=== PATIENT | female | born 1950 | race Caucasian/White ===

== ENCOUNTER 2022-10-15 14:33 | Emergency (ER) | payer MEDICARE, OTHER, SELFPAY ==
[2022-10-15 15:08] VITALS: BP 180/92; PULSE 85; RESP 18; TEMP 36.5; O2SAT 94; BMI 15.4
--- NOTE | 2022-10-15 16:09 | ED.EYEPROB ---
HPI - Eye Problem General Chief complaint: Eye Problems Stated complaint: Irritation/bleeding in right eye Time Seen by Provider: 10/15/22 16:04 History of Present Illness HPI Narrative: This 72-year-old female comes in with some redness in the inferior aspect of her right eye. She states that she feels normal. There was no trauma recently. She talked to her sister and then called the nurse line and was told to come in here for evaluation. She has no visual changes. She is not on any blood thinners. Related Data Home Medications Medication Instructions Recorded Confirmed carvedilol 3.125 mg tablet mg 10/15/22 lisinopril 20 mg tablet mg 10/15/22 lisinopril 20 tab 10/15/22 mg-hydrochlorothiazide 12.5 mg tablet rosuvastatin 20 mg tablet mg 10/15/22 vancomycin 125 mg capsule mg 10/15/22 Allergies Allergy/AdvReac Type Severity Reaction Status Date / Time acetaminophen [From Vicodin] Allergy Severe Hypertensio Verified 10/15/22 15:27 n gatifloxacin [From Tequin] Allergy Severe Anaphylaxis Verified 10/15/22 15:27 hydrocodone [From Vicodin] Allergy Severe Hypertensio Verified 10/15/22 15:27 n meperidine [From Demerol] Allergy Severe Anaphylaxis Verified 10/15/22 15:27 morphine Allergy Severe SOB Verified 10/15/22 15:27 Penicillins Allergy Severe Anaphylaxis Verified 10/15/22 15:27 ampicillin [From Unasyn] Allergy Unknown Nausea Verified 10/15/22 15:27 doxycycline Allergy Unknown other Verified 10/15/22 15:27 magnesium citrate Allergy Unknown Diarrhea Verified 10/15/22 15:27 metronidazole [From Flagyl] Allergy Unknown Flushing Verified 10/15/22 15:27 sulbactam [From Unasyn] Allergy Unknown Nausea Verified 10/15/22 15:27 sulfamethoxazole Allergy Unknown Nausea Verified 10/15/22 15:27 [From Sulfamethoxazole-Trimethoprim] trimethoprim Allergy Unknown Nausea Verified 10/15/22 15:27 [From Sulfamethoxazole-Trimethoprim] ceftin Allergy Severe Anaphylaxis Uncoded 10/15/22 15:27 iron sucrose Allergy Severe Anaphylaxis Uncoded 10/15/22 15:27 Review of Systems Status of ROS: Reports: 10 or more systems reviewed and unremarkable except as noted in History and below Narrative: Constitutional: No fevers, no weight gain or loss. Eyes: No discharge. No vision changes. Redness in the right eye as described above. HENT: No congestion, no sore throat, no ear pain. Cardiovascular: No chest pain, no palpitations. Respiratory: No shortness of breath, no wheezes, no cough. Gastrointestinal: No abdominal pain, no vomiting, no diarrhea. Genitourinary: No dysuria, no hematuria. Musculoskeletal: Normal range of motion. Skin: No rashes, no pruritis. Neurological: No dizziness, weakness, sensory change, speech change. Endo/Heme/Allergies: No bruising or bleeding. No polydipsia. Pysch: no suicidality, no anxiety, no insomnia. All other systems reviewed and are negative. Exam Narrative: Exam Narrative: Constitutional: Well-developed, well-nourished, no acute distress. HEENT: Normocephalic, atraumatic. The sclera of the inferior portion of the right eye has a subconjunctival hematoma. The iris is intact and funduscopic exam is normal. Neck: Normal range of motion. Nontender. Supple. Heart: Intact distal pulses. Lungs: No chest discomfort. No wheezes, rhonchi, or rales. Abdomen: Nontender. Back: Normal range of motion. Extremities: Normal range of motion. No injury. Skin: Intact. No rash. Warm. No erythema or pallor. Neurologic: No altered sensation. No weakness. Alert and oriented. Psychiatric: No suicidality. No anxiety or depression. No insomnia. Nursing notes and vitals signs are reviewed. Const: Vital Signs, click to edit/add: Vital Signs - 24 hr 10/15/22 15:08 Temperature 97.7 F Pulse Rate [Right Pulse Oximeter] 85 Respiratory Rate 18 Blood Pressure [Ri ght Upper Arm] 180/92 H Pulse Oximetry 94 Oxygen Delivery Me thod Room Air Course Vital Signs Vital signs: Initial Vital Signs Temperature 97.7 F 10/15/22 15:08 Temperature Source Temporal Artery Scan 10/15/22 15:08 Pulse Rate 85 10/15/22 15:08 Respiratory Rate 18 10/15/22 15:08 Blood Pressure 180/92 H 10/15/22 15:08 Blood Pressure Mean 121 10/15/22 15:08 Blood Pressure Position Sitting 10/15/22 15:08 Pulse Oximetry 94 01/02/23 15:08 Oxygen Delivery Method 10/15/22 15:08 Vital Signs Temperature 97.7 F 10/15/22 15:08 Pulse Rate 85 10/15/22 15:08 Respiratory Rate 18 10/15/22 15:08 Blood Pressure 180/92 H 10/15/22 15:08 Pulse Oximetry 94 10/15/22 15:08 Oxygen Delivery Method 10/15/22 15:08 Temperature 97.7 F 10/15/22 15:08 Pulse Rate 85 10/15/22 15:08 Respiratory Rate 18 10/15/22 15:08 Blood Pressure 180/92 H 10/15/22 15:08 Pulse Oximetry 94 10/15/22 15:08 Oxygen Delivery Method 10/15/22 15:08 MDM - Eye Problem MDM Narrative Medical decision making narrative: This patient comes in with a subconjunctival hematoma. She feels normal. She is not on any blood thinners. Reassurance is were given and the patient is okay to be discharged home to continue current plans. Discharge Plan Discharge Clinical Impression: Subconjunctival hematoma Patient Disposition: Home, Self-Care Condition: Stable Additional Instructions: Take [id number] medications as needed and indicated. Follow up with MD or return if worsening. Prescriptions: No Action lisinopril-hydrochlorothiazide 20-12.5 mg tablet Label Comments: TAKE ONE TABLET BY MOUTH EVERY MORNING lisinopril 20 mg tablet Label Comments: TAKE ONE TABLET BY MOUTH TWICE A DAY vancomycin 125 mg capsule Label Comments: TAKE ONE CAPSULE BY MOUTH EVERY DAY carvedilol 3.125 mg tablet Label Comments: TAKE ONE TABLET BY MOUTH TWICE A DAY WITH MEAL rosuvastatin 20 mg tablet Label Comments: TAKE ONE TABLET BY MOUTH EVERY EVENING WITH A MEAL Follow Up/Referrals: Pao Barnes PA-C [Primary Care Provider] - Stand Alone Forms: [email or web address] Info Instructions
--- NOTE | 2022-10-15 16:18 | ED.NURSE ---
Went to patient room to bring discharge instructions but patient had already left.
== END 2022-10-15 21:12 | disposition home or self-care (01) ==
LOC: ED 16:21
PROVIDERS: Emergency Provider Emergency Medicine Emergency Medical Services; PCP Physician Assistant Medical
DX: H11.31 Conjunctival hemorrhage, right eye (principal)
CPT/HCPCS: 99282; 99284

== ENCOUNTER 2023-04-29 07:19 | Emergency (ER) | payer MEDICARE, OTHER, SELFPAY ==
[2023-04-29] VITALS (11 sets, daily range): BP systolic 159–206; BP diastolic 92–104; PULSE 59–96; RESP 20; TEMP 36.1; O2SAT 88–96
--- NOTE | 2023-04-29 08:00 | ED.SOB ---
HPI - SOB/Dyspnea General Time Seen by Provider: 08:01 Date Seen: 04/29/23 Chief Complaint: Shortness of Breath/Dyspnea Stated Complaint: Shortness of breath, spitting up blood Time Seen by Provider: 04/29/23 07:59 Source: patient and RN notes reviewed Mode of arrival: ambulatory Limitations: no limitations History of Present Illness HPI Narrative: Patient is a 73-year-old female coming in with left-sided pleuritic chest symptoms and hemoptysis. Patient was diagnosed recently with non-small cell lung carcinoma. She states she has 2 lymph nodes on the left side where it is metastatic 2. About 2 weeks ago she had a bronchoscopy for biopsy and since than was having just small lula of blood in her productive cough. She saw the oncologist on Saturday. She through the weekend has had increasing hemoptysis where it is larger blood clots. She has burning pain in her left chest, feel short of breath. She could not lay on her left side last night, could not get comfortable due to the pain. She feels it is more than just the biopsy site. She called the emergency number for the oncologist in the oncologist she saw on Saturday was on-call, told her to come to the ER. They did discuss possibility of underlying pulmonary embolus. Her is concerned might be the biopsy site bleeding. Reviewed with them that these are all in the differential. 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 She is maintained on daily vancomycin which keeps this C difficile at [facility]. She has a history of a colostomy with a takedown 2 years ago. She also reports that she has 70% carotid artery stenosis on her right side, had seen her fitness floor attendant recently and they obviously are going to have her deal with her lung cancer 1st. She states she is on no blood thinners, stopped her aspirin. MD elicited complaint: shortness of breath, cough and pain with inspiration Related Data Home Medications Medication Instructions Recorded Confirmed carvedilol 3.125 mg tablet mg 10/15/22 lisinopril 20 mg tablet mg 10/15/22 lisinopril 20 tab 10/15/22 mg-hydrochlorothiazide 12.5 mg tablet rosuvastatin 20 mg tablet mg 10/15/22 vancomycin 125 mg capsule mg 10/15/22 Previous Rx's Medication Instructions Recorded azithromycin 250 mg tablet 250 mg PO DAILY 4 days #4 tabs 04/29/23 Allergies Allergy/AdvReac Type Severity Reaction Status Date / Time acetaminophen [From Vicodin] Allergy Severe Hypertensio Verified 10/15/22 15:27 n gatifloxacin [From Tequin] Allergy Severe Anaphylaxis Verified 10/15/22 15:27 hydrocodone [From Vicodin] Allergy Severe Hypertensio Verified 10/15/22 15:27 n meperidine [From Demerol] Allergy Severe Anaphylaxis Verified 10/15/22 15:27 morphine Allergy Severe SOB Verified 10/15/22 15:27 Penicillins Allergy Severe Anaphylaxis Verified 10/15/22 15:27 ampicillin [From Unasyn] Allergy Unknown Nausea Verified 10/15/22 15:27 doxycycline Allergy Unknown other Verified 10/15/22 15:27 magnesium citrate Allergy Unknown Diarrhea Verified 10/15/22 15:27 metronidazole [From Flagyl] Allergy Unknown Flushing Verified 10/15/22 15:27 sulbactam [From Unasyn] Allergy Unknown Nausea Verified 10/15/22 15:27 sulfamethoxazole Allergy Unknown Nausea Verified 10/15/22 15:27 [From Sulfamethoxazole-Trimethoprim] trimethoprim Allergy Unknown Nausea Verified 10/15/22 15:27 [From Sulfamethoxazole-Trimethoprim] ceftin Allergy Severe Anaphylaxis Uncoded 10/15/22 15:27 iron sucrose Allergy Severe Anaphylaxis Uncoded 10/15/22 15:27 Review of Systems Status of ROS: Reports: 6 or more systems reviewed and unremarkable except as noted in History and below [facility] Social History Smoking Status: Former smoker Do you use any of these nicotine containing products: None Second hand tobacco smoke exposure: Yes How often do you have a drink containing alcohol: 2-3 times a week How many standard drinks containing alcohol do you have on a typical day: 3 or 4 How often do you have six or more drinks on one occasion: Never AUDIT-C Alcohol total score: 4 Non-prescribed substance use: denies use service: No Exam Const: Vital Signs, click to edit/add: Vital Signs - 24 hr 04/29/23 07:23 04/29/23 09:01 04/29/23 09:02 Temperature 97.0 F L Pulse Rate 61 61 Pulse Rate [Left P ulse Oximeter] 96 Respiratory Rate 20 Blood Pressure 172/95 H Blood Pressure [Ri ght Upper Arm] 206/104 H Pulse Oximetry 95 96 96 Oxygen Delivery Me thod Room Air 04/29/23 09:03 04/29/23 09:45 04/29/23 10:00 Temperature Pulse Rate 61 61 60 Pulse Rate [Left P ulse Oximeter] Respiratory Rate Blood Pressure Blood Pressure [Ri ght Upper Arm] Pulse Oximetry 96 96 Oxygen Delivery Me thod 04/29/23 10:03 04/29/23 10:30 04/29/23 10:32 Temperature Pulse Rate 64 59 L 59 L Pulse Rate [Left P ulse Oximeter] Respiratory Rate Blood Pressure 187/92 H 159/93 H Blood Pressure [Ri ght Upper Arm] Pulse Oximetry 95 96 96 Oxygen Delivery Me thod Documenting provider has reviewed patient's vital signs: yes Common normals: no apparent distress, oriented x3, no limitations, healthy appearing, alert and well nourished General appearance: cooperative, comfortable, well kempt and well developed Other: Sitting up on the bed, very pleasant 73-year-old female able to talk in complete sentences come voice is normal. HENMT: Common normals: normocephalic, head/scalp atraumatic, hearing grossly normal bilaterally and external nose normal Head and scalp: normocephalic and atraumatic Face and sinus: normal facial exam Nose: external nose normal Eye: Common normals: PERRL, EOMs intact bilaterally, conjunctivae normal and no scleral icterus Conjunctiva: conjunctiva(e) normal Pupil: PERRL Neck & C-Spine: Common normals: full ROM, no lymphadenopathy, supple, no JVD and thyroid normal Thyroid: thyroid normal Lymph: Lymphatic: no lymphadenopathy noted Chest: Common normals: inspection of chest normal and palpation of chest normal Resp: Common normals: normal respiratory effort, no retractions, no use of accessory muscles and clear to auscultation bilaterally (Breath sounds are mildly distant bilaterally.) Effort & inspection: able to speak in complete sentences Auscultation: clear to auscultation bilaterally (Breath sounds are mildly distant bilaterally.) Cardio: Common normals: no JVD, regular rate, regular rhythm, S1 normal heart sound, S2 normal heart sound, no gallops, no clicks and no murmurs Rate: regular rate Rhythm: regular rhythm Heart sounds: S1 normal and S2 normal GI: Common normals: Normal to inspection, nondistended, normoactive bowel sounds present, soft to palpation, non-tender, no hepatosplenomegaly and no masses Palpation: soft and no hepatosplenomegaly Extremity: Common normals: no calf tenderness and no pedal edema (Absolutely no lower extremity edema.) Neuro: Common normals: oriented x3 Sensorium/orientation: alert Psych: Appearance: well kempt Course Course Hospital Course: Patient will have pulse oximetry for monitoring while here. Will obtain baseline EKG, proceed to chest CT PE protocol. Will have full complement of labs. She certainly is complaining of hemoptysis with recent biopsy in underlying lung cancer. This could be complication from the biopsy, complication from the cancer itself, rule out pulmonary embolus. Will get cardiac markers in case this is a pulmonary embolus to see if there is any level of string. Will also look at cardiac markers independently to ensure no ischemic disease. Patient currently is hemodynamically stable, actually blood pressure on arrival is elevated, will continue to watch and trend this well here. Reevaluation(s) Time of Reevaluation #1: 11:00 Reevaluation #1: Did review with patient recommendations for antibiotics to cover for pneumonia. She is adamant that she cannot take doxycycline as well as any fluoroquinolones or cephalosporin. She thinks she has taken azithromycin in the past. Have reviewed with her that that may be incomplete coverage for community-acquired pneumonia but at this juncture, really have nothing else to offer her orally. Did review antibiotic regimens with the oncologist. Our 1st choice would have been doxycycline but did discuss plan for Z-Bunny if patient could tolerate nothing else. Patient is adamant that she cannot take doxycycline. We did review that the Z-Bunny may increase her risk for C difficile. As far as pain, she cannot take narcotics. We do not want her on NSAIDs at this point. She is likely going to have to stick with Tylenol. Hopefully if there is a component of pneumonia this will be treated. If the hemoptysis continues or worsens, she will need a bronchoscopy likely and that is not something we can provide here. She does understand that. She would like to take her 1st dose of azithromycin here to make sure that she tolerates it. I have ordered 500 mg of this for her. Time of Reevaluation #2: 11:25 Consultations Consultation #1: Spoke with her own oncologist Dr. Cortez from [facility]. Reviewed the CT findings. Reviewed her allergy profile. I will talk to patient and see if she can at all tolerate doxycycline. If she can not, may have to go with azithromycin which she is potentially not adequate coverage. She is listing anaphylaxis from fluoroquinolones, penicillin class as well as a cephalosporin. Time: 11:07 Vital Signs Vital signs: Initial Vital Signs Temperature 97.0 F L 04/29/23 07:23 Temperature Source Temporal Artery Scan 04/29/23 07:23 Pulse Rate 96 04/29/23 07:23 Pulse Rhythm Regular 04/29/23 07:23 Respiratory Rate 20 04/29/23 07:23 Blood Pressure 206/104 H 04/29/23 07:23 Blood Pressure Mean 138 H 04/29/23 07:23 Blood Pressure Position Semi-Fowlers 04/29/23 07:23 Pulse Oximetry 95 04/29/23 07:23 Oxygen Delivery Method Room Air 04/29/23 07:23 Vital Signs Temperature 97.0 F L 04/29/23 07:23 Pulse Rate 96 04/29/23 07:23 Respiratory Rate 20 04/29/23 07:23 Blood Pressure 206/104 H 04/29/23 07:23 Pulse Oximetry 95 04/29/23 07:23 Oxygen Delivery Method Room Air 04/29/23 07:23 Temperature 97.0 F L 04/29/23 07:23 Pulse Rate 59 L 04/29/23 10:32 Respiratory Rate 20 04/29/23 07:23 Blood Pressure 159/93 H 04/29/23 10:32 Pulse Oximetry 96 04/29/23 10:32 Oxygen Delivery Method Room Air 04/29/23 07:23 MDM - SOB/Dyspnea Lab Data Attestation: I reviewed the patient's lab results. Labs: Lab Results 04/29/23 Range/Units 08:12 WBC 7.57 (4.50-11.00) K/uL RBC 5.13 (4.00-5.20) m/uL Hgb 15.3 (12.0-16.0) gm/dL Hct 47.5 (33.0-51.0) % MCV 93 (80-100) fL MCH 30 (26-34) pg MCHC 32 (32-36) gm/dL RDW Coeff of Álvaro 13.1 (11.5-15.5) % Plt Count 324 (140-440) K/uL Neut % (Auto) 69.7 (42.0-72.0) % Lymph % (Auto) 17.2 L (20-44) % [place] % (Auto) 10.8 (0.0-11.0) % Eos % (Auto) 1.5 (0.0-7.0) % Baso % (Auto) 0.7 (0.0-3.0) % Neut # (Auto) 5.28 (1.7-7.0) K/uL Lymph # (Auto) 1.30 (0.90-2.90) K/uL [place] # (Auto) 0.80 (0.00-0.90) K/UL Eos # (Auto) 0.11 (0.00-0.50) K/uL Baso # (Auto) 0.05 (0.00-0.30) K/uL Abs Immat Gran (auto) 0.01 (0.00-0.30) K/uL Imm/Tot Granulo (auto) 0.1 % INR 0.87 L (0.91-1.10) APTT 28 (23-33) Seconds D-Dimer Quant (PE/DVT) 0.47 (0.00-0.50) ug/ml Sodium 140 (135-149) mmol/L Potassium 3.5 L (3.6-5.1) mmol/L Chloride 103 (96-114) mmol/L Carbon Dioxide 28 (20-32) mmol/L BUN 10 (7-30) mg/dL Creatinine 0.7 (0.5-1.5) mg/dL Estimated GFR 91 ml/min Glucose 96 (60-115) mg/dL Lactate 2.2 H (0.5-1.9) mmol/L Calcium 9.3 (8.4-10.6) mg/dL Total Bilirubin 0.9 (0.1-1.5) mg/dL AST 43 H (12-35) U/L ALT 39 H (4-35) U/L Alkaline Phosphatase 59 (40-150) U/L Troponin I < 0.01 L (0.01-0.04) ng/mL NT-Pro-B Natriuret Pep 291 pg/mL Total Protein 7.6 (6.0-8.3) g/dL Albumin 4.7 (3.3-5.0) g/dL Imaging Data CT scan - chest: Attestation: I have reviewed the pertinent imaging results. Radiologist's impression: Patient: SHMUEL RIVERA Facility:?[facility] Patient ID:?[id number] Site Patient ID:?[id number]. Site :?[id number] Study:?CT Chest Angio 95CC ISOVUE 370-04/29/2023 9:48:49 AM Ordering Physician:?Rashad Sanchez Final Report: INDICATION: RECENT DIAGNOSIS OF LUNG CANCER, LUNG BX 2 WEEKS AGO AT [place]. HYMOPTYSIS, CP LEFT SIDE TECHNIQUE: CT chest PE was acquired with 95 cc Isovue 370 IV contrast. COMPARISON: CT chest April 12, 2023. FINDINGS: Heart and vasculature: Contrast opacification of the pulmonary arterial tree is adequate. No sign of pulmonary embolism. Heart size is normal. Thoracic aorta and pulmonary artery are normal in caliber. Lungs and pleural: Mild centrilobular emphysema and biapical scarring. Redemonstrated spiculated irregular mass within left lower lobe superior segment measuring 1.8 x 1.7 cm, similar to prior exam. However, there is interval development of adjacent and right basilar next consolidate ground-glass opacities. Bibasilar bronchial wall thickening and mucous plugging. Lymph nodes/mediastinum: No enlarged lymph nodes by size criteria. Chest wall: No masses. Upper abdomen: Postop changes of the GE junction. Cholecystectomy. Bones: Unremarkable for age. IMPRESSION: 1. Similar size of spiculated left upper lobe lesion with new surrounding consolidative and ground-glass opacities. Findings concerning for pneumonia and/or aspiration given bibasilar bronchial wall thickening and mucous plugging. Alternatively, this may represent perilesional hemorrhage given recent biopsy and reported hemoptysis. 2. No evidence of pulmonary embolus. Please note that all CT scans at this facility use dose modulation, iterative reconstruction, and/or weight-based dosing when appropriate to reduce radiation dose to as low as reasonably achievable. Dictated by Alber Castaneda MD @ 04/29/2023 10:43:41 AM (Electronic Signature) ECG Data Attestation: I personally reviewed and interpreted this ECG as follows: (Sinus rhythm, 61 beats per minute. Flipped T-waves without ST segment changes in V1, V2, 3 and AVF. Criteria for LVH by voltage minute. QT corrected 01/21/2018 milliseconds.) ECG interpretation date: 04/29/23 ECG interpretation time: 08:31 Prior ECG tracings: not available for review Discharge Plan Discharge Clinical Impression: Cough with hemoptysis, Non-small cell lung cancer, Ground glass opacity present on imaging of lung Patient Disposition: Home, Self-Care Condition: Stable Instructions: Coughing Up Blood (Hemoptysis) (ED), Community Acquired Pneumonia (ED) Additional Instructions: Need to follow-up with your oncologist as soon as you are able to to discuss further plans and management, especially if the hemoptysis continues. He may ultimately need to have a follow-up bronchoscopy, we do not have those services here. Tylenol baseline for pain. Remain off aspirin and NSAIDs at this time. Complete the Z-Bunny, next dose due tomorrow. If you have increasing difficulty breathing, worsening symptoms, increasing shortness of breath, increased hemoptysis, would recommend higher level of care such as a facility like [facility] where advanced services/specialty care is available. Activity Level: Activity as Tolerated Prescriptions: New azithromycin 250 mg tablet 250 mg PO DAILY 4 Days Qty: 4 0RF Rx Instructions: take one pill daily starting tomorrow 04/30/2023 No Action lisinopril-hydrochlorothiazide 20-12.5 mg tablet Patient Comments: TAKE ONE TABLET BY MOUTH EVERY MORNING lisinopril 20 mg tablet Patient Comments: TAKE ONE TABLET BY MOUTH TWICE A DAY vancomycin 125 mg capsule Patient Comments: TAKE ONE CAPSULE BY MOUTH EVERY DAY carvedilol 3.125 mg tablet Patient Comments: TAKE ONE TABLET BY MOUTH TWICE A DAY WITH MEAL rosuvastatin 20 mg tablet Patient Comments: TAKE ONE TABLET BY MOUTH EVERY EVENING WITH A MEAL Follow Up/Referrals: Pao Barnes PA-C [Primary Care Provider] - Stand Alone Forms: [employer] Info Instructions
--- NOTE | 2023-04-29 08:11 | CRLHL7_ITS ---
For Patients: As a result of the 21st Century Cures Act, medical imaging exams and procedure reports are released immediately into your electronic medical record. You may view this report before your referring provider. If you have questions, please contact your health care provider. INDICATION: RECENT DIAGNOSIS OF LUNG CANCER, LUNG BX 2 WEEKS AGO AT [place]. HYMOPTYSIS, CP LEFT SIDE TECHNIQUE: CT chest PE was acquired with 95 cc Isovue 370 IV contrast. COMPARISON: CT chest April 12, 2023. FINDINGS: Heart and vasculature: Contrast opacification of the pulmonary arterial tree is adequate. No sign of pulmonary embolism. Heart size is normal. Thoracic aorta and pulmonary artery are normal in caliber. Lungs and pleural: Mild centrilobular emphysema and biapical scarring. Redemonstrated spiculated irregular mass within left lower lobe superior segment measuring 1.8 x 1.7 cm, similar to prior exam. However, there is interval development of adjacent and right basilar next consolidate ground-glass opacities. Bibasilar bronchial wall thickening and mucous plugging. Lymph nodes/mediastinum: No enlarged lymph nodes by size criteria. Chest wall: No masses. Upper abdomen: Postop changes of the GE junction. Cholecystectomy. Bones: Unremarkable for age. IMPRESSION: 1. Similar size of spiculated left upper lobe lesion with new surrounding consolidative and ground-glass opacities. Findings concerning for pneumonia and/or aspiration given bibasilar bronchial wall thickening and mucous plugging. Alternatively, this may represent perilesional hemorrhage given recent biopsy and reported hemoptysis. 2. No evidence of pulmonary embolus. Please note that all CT scans at this facility use dose modulation, iterative reconstruction, and/or weight-based dosing when appropriate to reduce radiation dose to as low as reasonably achievable. Dictated by Alber Castaneda MD @ 04/29/2023 10:43:41 AM (Electronically Signed)
[2023-04-29 08:23] LABS: Basophils Absolute Auto 0.05 K/uL (0.00-0.30); Basophils Percent Auto 0.7 % (0.0-3.0); Eosinophils Absolute Auto 0.11 K/uL (0.00-0.50); Eosinophils Percent Auto 1.5 % (0.0-7.0); Hematocrit 47.5 % (33.0-51.0); Hemoglobin* 15.3 gm/dL (12.0-16.0); Immature Granulocytes Abs Auto 0.01 K/uL (0.00-0.30); Immature Granulocytes Pct Auto 0.1 %; Lactate* 2.2 mmol/L (0.5-1.9); Lymphocytes Percent Auto 17.2 % (20-44); Mean Corpuscular HGB Conc 32 gm/dL (32-36); Mean Corpuscular Hemoglobin 30 pg (26-34); Mean Corpuscular Volume 93 fL (80-100); Monocytes Percent Auto 10.8 % (0.0-11.0); Neutrophils Absolute Auto 5.28 K/uL (1.7-7.0); Neutrophils Percent Auto 69.7 % (42.0-72.0); Platelet Count* 324 K/uL (140-440); RDW Coefficient of Variation % 13.1 % (11.5-15.5); Red Blood Count 5.13 m/uL (4.00-5.20); White Blood Count* 7.57 K/uL (4.50-11.00)
[2023-04-29 08:29] LABS: Slide Review Reflex No
[2023-04-29 08:57] LABS: Albumin* 4.7 g/dL (3.3-5.0); Chloride* 103 mmol/L (96-114); Potassium* 3.5 mmol/L (3.6-5.1); Sodium* 140 mmol/L (135-149)
[2023-04-29 09:00] LABS: Alanine Aminotransferase* 39 U/L (4-35); Alkaline Phosphatase* 59 U/L (40-150); Aspartate Amino Transferase* 43 U/L (12-35); Bilirubin Total* 0.9 mg/dL (0.1-1.5); Blood Urea Nitrogen* 10 mg/dL (7-30); Carbon Dioxide* 28 mmol/L (20-32); Creatinine* 0.7 mg/dL (0.5-1.5); Estimated Glomerular Filt Rate 91 ml/min; Glucose* 96 mg/dL (60-115); Total Protein* 7.6 g/dL (6.0-8.3)
[2023-04-29 09:01] LABS: Calcium* 9.3 mg/dL (8.4-10.6)
[2023-04-29 09:05] LABS: INR 0.87 (0.91-1.10); Prothrombin Time 12.3 Seconds
[2023-04-29 09:06] LABS: Partial Thromboplastin Time* 28 Seconds (23-33)
[2023-04-29 09:08] LABS: D Dimer Quantitative* 0.47 ug/ml (0.00-0.50)
[2023-04-29 09:10] LABS: NT Pro B Type NatriureticPept* 291 pg/mL
[2023-04-29 09:12] LABS: Troponin I* < 0.01 ng/mL (0.01-0.04)
--- NOTE | 2023-04-29 09:28 | PC.NURSE ---
to radiology via wheelchair
[2023-04-29] MEDS: AZITHROMYCIN 250 MG TABLET 500 MG PO (11:58)
== END 2023-04-29 12:38 | disposition home or self-care (01) ==
PROVIDERS: Emergency Provider Family Medicine; PCP Physician Assistant Medical
DX: R04.2 Hemoptysis (principal); C34.90 Malignant neoplasm of unspecified part of unspecified bronchus or lung
CPT/HCPCS: 36415; 71260; 80053; 83605; 83880; 84484; 85025; 85379; 85610; 85730; 99284; 99285; A9270; Q9967

== ENCOUNTER 2023-06-23 20:36 | Inpatient (IN) | payer MEDICARE, OTHER, SELFPAY ==
[2023-06-23 21:04] VITALS: BP 91/62; PULSE 103; RESP 16; O2SAT 92; BMI 16.3
[2023-06-23 21:11] VITALS: TEMP 37.3
--- NOTE | 2023-06-23 21:26 | ED_ITS ---
HPI - Fever General Time Seen by Provider: 21:26 <Laura Solorzano MD - Last Filed: 06/25/23 23:11> Date Seen: 06/23/23 <Laura Solorzano MD - Last Filed: 06/25/23 23:11> Chief Complaint: Fever <Laura Solorzano MD - Last Filed: 06/25/23 23:11> Stated Complaint: Fever, thinks she has pneumonia <Laura Solorzano MD - Last Filed: 06/25/23 23:11> Time Seen by Provider: 06/23/23 21:16 <Laura Solorzano MD - Last Filed: 06/25/23 23:11> Source: patient, RN notes reviewed and old records reviewed <Laura Solorzano MD - Last Filed: 06/25/23 23:11> Mode of arrival: ambulatory <Laura Solorzano MD - Last Filed: 06/25/23 23:11> Limitations: no limitations <Laura Solorzano MD - Last Filed: 06/25/23 23:11> History of Present Illness HPI Narrative: This 73-year-old female with underlying lung cancer is coming in with a fever of 101.6 at home, is undergoing chemotherapy and radiation for this. She had treatment on Saturday, has continued to feel progressively worse. She does have a mild cough and some chest discomfort, it is reminiscent her symptoms when she had pneumonia before. She states her fairly did not want her to come in but when she talked to Oncology, they advised her to appropriately come in with a fever. She has had a little low back ache but no urinary symptoms, does wonder if it could be UTI. Reviewed with her that back a can be nonspecific, certainly can check urine. She is not noting any nasal congestion, no sore throat, no nausea vomiting or diarrhea. She notes she is dehydrated, has not been getting oral intake in, did not take any of her blood pressure medicines today in her systolic is 90. I did see her in April and this is when she was diagnosed with pneumonia, difficulty with antibiotic selection with her. She has non-small cell lung cancer. 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 She is maintained on daily vancomycin. She has had history of colostomy take down a few years ago. She has known right carotid stenosis 70% but her lung cancer was diagnosed in this has been put on hold. <Laura Solorzano MD - Last Filed: 06/25/23 23:11> MD elicited complaint: fever <Laura Solorzano MD - Last Filed: 06/25/23 23:11> Related Data Home Medications: Home Medications Medication Instructions Recorded Confirmed rosuvastatin 20 mg tablet 20 mg PO DAILY 10/15/22 06/24/23 vancomycin 125 mg capsule 125 mg PO DAILY 10/15/22 06/24/23 ANTACID/DIPHEN/LIDO (MAGIC 5 ml buccal Q6H PRN 06/24/23 06/24/23 MOUTHWASH) amlodipine 2.5 mg tablet 2.5 mg PO DAILY 06/24/23 06/24/23 lidocaine HCl 2 % mucosal solution PO 06/24/23 (Lidocaine Viscous) lorazepam 0.5 mg tablet 0.5 mg PO BID 06/24/23 06/24/23 metoprolol succinate 100 mg 100 mg PO DAILY 06/24/23 06/24/23 tablet,extended release 24 hr olanzapine 5 mg tablet 5 mg PO QPM 06/24/23 06/24/23 oxycodone 5 mg/5 mL oral solution 10 mg PO Q4-6H PRN pain 06/24/23 06/24/23 oxycodone-acetaminophen 5 mg-325 1 tab PO Q6H PRN 06/24/23 06/24/23 mg tablet prochlorperazine maleate 10 mg 10 mg PO Q6H PRN nausea 06/24/23 06/24/23 tablet sucralfate 100 mg/mL oral 10 ml PO QID 06/24/23 06/24/23 suspension <Laura Solorzano MD - Last Filed: 06/25/23 23:11> Allergies/Adverse Reactions: Allergies Allergy/AdvReac Type Severity Reaction Status Date / Time gatifloxacin [From Tequin] Allergy Severe Anaphylaxis Verified 06/23/23 23:58 hydrocodone [From Vicodin] Allergy Severe Hypertensio Verified 06/23/23 23:58 n meperidine [From Demerol] Allergy Severe Anaphylaxis Verified 06/23/23 23:58 morphine Allergy Severe SOB Verified 06/23/23 23:58 Penicillins Allergy Severe Anaphylaxis Verified 06/23/23 23:58 ampicillin [From Unasyn] Allergy Unknown Nausea Verified 06/23/23 23:58 doxycycline Allergy Unknown other Verified 06/23/23 23:58 magnesium citrate Allergy Unknown Diarrhea Verified 06/23/23 23:58 metronidazole [From Flagyl] Allergy Unknown Flushing Verified 06/23/23 23:58 sulbactam [From Unasyn] Allergy Unknown Nausea Verified 06/23/23 23:58 sulfamethoxazole Allergy Unknown Nausea Verified 06/23/23 23:58 [From Sulfamethoxazole-Trimethoprim] trimethoprim Allergy Unknown Nausea Verified 06/23/23 23:58 [From Sulfamethoxazole-Trimethoprim] ceftin Allergy Severe Anaphylaxis Uncoded 06/23/23 23:58 iron sucrose Allergy Severe Anaphylaxis Uncoded 06/23/23 23:58 <Laura Solorzano MD - Last Filed: 06/25/23 23:11> Review of Systems Status of ROS Reports: 6 or more systems reviewed and unremarkable except as noted in History and below <Laura Solorzano MD - Last Filed: 06/25/23 23:11> [facility] Medical History: Medical History (Updated 06/25/23 @ 12:27 by Ashley Huddleston PA-C) Cerebral aneurysm ?I67.1 - Cerebral aneurysm, nonruptured (ICD-10) PVD (peripheral vascular disease) ?I73.9 - Peripheral vascular disease, unspecified (ICD-10) COPD (chronic obstructive pulmonary disease) ?J44.9 - Chronic obstructive pulmonary disease, unspecified (ICD-10) C. difficile colitis ?A04.72 - Enterocolitis due to Clostridium difficile, not specified as recurrent (ICD-10) Intermittent atrial fibrillation ?I48.0 - Paroxysmal atrial fibrillation (ICD-10) Non-small cell carcinoma of left lung, stage 3 ?C34.92 - Malignant neoplasm of unspecified part of left bronchus or lung (ICD-10) <Laura Solorzano MD - Last Filed: 06/25/23 23:11> Surgical History: Surgical History S/P colectomy ?Z90.49 - Acquired absence of other specified parts of digestive tract (ICD- 10) <Laura Solorzano MD - Last Filed: 06/25/23 23:11> Social History: Social History What is your current living situation?: I presently have a place to live Problems where you live: no known problems Problems where you live details: na In the past 12 months, utilities in danger of being shut off: no In the past 12 mos, have been you worried that your food would run out before you had money to buy more?: never true In the past 12 mos, the food you bought just didn't last and you didn't have money to buy more?: never true Smoking Status: Former smoker Do you use any of these nicotine containing products: None Second hand tobacco smoke exposure: Yes How often do you have a drink containing alcohol: never How many standard drinks containing alcohol do you have on a typical day: 3 or 4 How often do you have six or more drinks on one occasion: Never AUDIT-C Alcohol total score: 1 Non-prescribed substance use: denies use How often does anyone, including family, friends and others, physically hurt you : never How often does anyone, including family, friends and others, insult or talk down to you: fairly often How often does anyone, including family, friends and others, threaten you with harm: never How often does anyone, including family, friends and others, scream or curse at you: sometimes service: No <Laura Solorzano MD - Last Filed: 06/25/23 23:11> Exam Const Vital Signs, click to edit/add: Vital Signs - 24 hr 06/23/23 21:04 06/23/23 21:11 06/23/23 21:32 Temperature 99.1 F Pulse Rate [Left Pulse Oximeter] 103 H Respiratory Rate 16 Blood Pressure [Right Upper Arm] 91/62 Pulse Oximetry 92 91 Oxygen Delivery Method Room Air 06/23/23 22:18 Temperature Pulse Rate [Left Pulse Oximeter] Respiratory Rate Blood Pressure [Right Upper Arm] Pulse Oximetry 91 Oxygen Delivery Method Room Air Shmuel is a very pleasant 73-year-old female bundled up in blankets, has them over her head. She is still very pleasant and conversive, speech is normal, able speak in complete sentences. She is of slender frame, appears frail. Sclera clear, conjugate gaze. Symmetrical facial function. Neck is supple, no palpable masses. Is able to sit up, lungs are clear, hear no wheezing or crackles. CV sounds regular, possibly slightly fast, no murmur noted, no ectopy. Abdomen is soft, no rebound or guarding, no organomegaly. She has no lower extremity edema, no focal motor or sensory issues of extremities. <Laura Solorzano MD - Last Filed: 06/25/23 23:11> Vital Signs - 24 hr 06/23/23 21:04 06/23/23 21:11 06/23/23 21:32 Temperature 99.1 F Pulse Rate [Left Pulse Oximeter] 103 H Respiratory Rate 16 Blood Pressure [Right Upper Arm] 91/62 Pulse Oximetry 92 91 Oxygen Delivery Method Room Air 06/23/23 22:18 Temperature Pulse Rate [Left Pulse Oximeter] Respiratory Rate Blood Pressure [Right Upper Arm] Pulse Oximetry 91 Oxygen Delivery Method Room Air <Guillaume Ortega MD - Last Filed: 06/24/23 01:31> Documenting provider has reviewed patient's vital signs: yes <Laura Solorzano MD - Last Filed: 06/25/23 23:11> Course Course ED Course: This is a 73-year-old female that has relative hypotension, do agree that this certainly could be a component of dehydration but with fever, do need to worry about sepsis. She would like us to use her port but wants EMLA cream. Have discussed the delay in cares with this but this is how she would like to proceed in does seem to be quite lucid and does not appear toxic at all. I will order a L of IV fluids and watch her closely, she will be on cardiac monitoring and pulse oximetry. We will get urinalysis, blood cultures, chest x-ray in full complement of labs. May need to proceed with chest imaging if we need more definitive testing to find the answer for her fever. She understands we will be doing the triple viral swab in does agree to this testing. <Laura Mensah MD - Last Filed: 06/25/23 23:11> Reevaluation(s) Time of Reevaluation #1: 22:55 <Laura Solorzano MD - Last Filed: 06/25/23 23:11> Reevaluation #1: Patient is having chest discomfort with her radiation, sounds as if she has been using percocet at home but it upsets her stomach; they had provided liquid but hasn't tried that yet. We are going to give her a dose of IV fentanyl. She is still tachycardia with afib w/ rvr but has only received the first half of 1L, will be ordering more fluids. Do wonder about radiation pneumonitis after talking further with them. She did get both chemo and radiation treatment on Saturday. Has been getting these radiation treatments 3x/week. Will proceed with chest imaging. Blood pressure is in the systolic 130s with just this small amount of fluids, pulse is still AFib with RVR, anywhere from 120 to 140s. Will initiate small dose of IV metoprolol and an oral dose of metoprolol. Hopefully with fluids she will improve. Reviewed that she is in atrial fibrillation, she states she has been in this before, think she has probably been in it all weekend. Reviewed with her that I do not feel it is safe for cardioversion. Patient's potassium has come back low at 3.1, have ordered 2 IV 10 mEq bags for replacement. Will do a lab add on for magnesium level. <Laura Solorzano MD - Last Filed: 06/25/23 23:11> Reevaluation #2: Addendum, Dr. Guillaume Ortega, 01:31 06/24/2023: I assumed care of this patient when Dr. Torrez left the ER at around midnight. I recheck the patient from about 12 30 until 1:00 a.m. at her bedside with her family. 73-year-old female who has lung cancer. She recently completed a course of chemo (last dose 3 days ago on Saturday) and is still has ongoing radiation therapy to her lungs. She also has a history of asthma/COPD with wheezing. She needs to use bronchodilators at least 3 times, sometimes more often, every day at home. She was requesting another nebulizer at around 12:15 p.m.-12 30 because this was her normally time to get 1 at home. She has been ill above her chronic illness for the past week or 2 with cough, shortness of breath. Cough has been rattling and productive. Concern is for possible pneumonia. She also has a history of what sounds like paroxysmal AFib. She has been having episodes of it off and on for months. She says she has seen a graduate advisor for it but was not having AFib so is not currently on any meds for stroke prophylaxis, rate control, or rhythm control. She has felt episodes of irregular heartbeat off and on every day for the past couple of weeks. In particular she has felt her hurting pretty rapid irregular over the weekend, for the past few days. Constitutional: Appears well-developed and well-nourished. Alert. Conversant. Frequent wet sounding cough. Non toxic. HENT: Head: Atraumatic. Nose: Nose normal. Mouth/Throat: Oral mucosa is clear and moist. no trismus. Pharynx normal. Tonsils symmetric. No tonsillar enlargement, erythema, or exudate. Eyes: Conjunctivae normal. EOM normal. Pupils equal, round, and reactive to light. No scleral icterus. Neck: Normal range of motion. Neck supple. No tracheal deviation present. No JVD Cardiovascular: Tachycardic, irregularly irregular rhythm. No gallop. No friction rub. No murmur heard. Symmetric radial artery pulses Pulmonary/Chest: Effort normal. No stridor. No respiratory distress. Scarce bilateral wheezes. Right basilar rales and rhonchi. Musculoskeletal: RUE: Normal range of motion. No tenderness. No deformity LUE: Normal range of motion. No tenderness. No deformity RLE: Normal range of motion. No edema. No tenderness. No deformity LLE: Normal range of motion. No edema. No tenderness. No deformity Neurological: Alert and oriented to person, place, and time. Normal strength. CN II-VII intact. No sensory deficit. GCS eye subscore is 4. GCS verbal subscore is 5. GCS motor subscore is 6. Normal coordination Skin: Skin is warm and dry. No rash noted. No pallor. Normal capillary refill. Psychiatric: Normal mood. Normal affect. Medical decision making 1. Atrial fibrillation: Patient does have atrial fibrillation with RVR. This is been ongoing for several days and it sounds like she has been having intermittent AFib for the past few weeks. She is not within a safe 48 hour window for cardioversion here in the ER. She has not been on any stroke proph ylaxis. Chads Vasc score is 4. She is concerned about potential bleeding complications from blood thinners. Therefore will start her on heparin drip for stroke prophylaxis here in the ER. This would allow is to DC the drip if she did encounter any bleeding complications. We opted for rate control since cardioversion was not safe. Blood pressure was soft (patient has normal blood pressure is roughly 140/90. Yesterday at home was 88/38. Today it was about 100/50). She received a small IV and a small oral dose of metoprolol before I took over. With these medications heart rate did temporarily come down ranging about 100-115. While I was re-evaluating her she was having fairly consistent heart rates in the 1 teens with occasional episodes into the 120s near 130. Blood pressure remained stable at about 100/53. Mental status was normal. She was not having any ischemic sounding chest pain or other evidence that this was a ?unstable? tachy arrhythmia. I ordered additional IV metoprolol 2.5 mg IV. She will require admission for cardiac monitoring and careful observation in the hospital for ongoing rate control. 2. Pneumonia. Chest x-ray does show right middle lobe and right lower lobe infiltrates which appear to be new, probably new pneumonia. She does have a productive wet sound and cough. Fortunately she is not hypoxic. Blood pressure has been in the low normal range here in the ER and was reported to be low yesterday at home. However she is not hypotensive. She received a 1.5 L crystalloid bolus prior to me assuming care. Lactic acid is normal at 1.1. At this point no evidence for septic shock or severe sepsis. White blood cell count is normal but CRP is elevated at 17. Procalcitonin is 0.15 She has multiple antibiotic allergies, as well as a history of C diff on chronic vancomycin prophylaxis. This creates difficulty in choosing appropriate antibiotic therapy for pneumonia. Will try her on a carbapenem and Zithromax. Blood cultures obtained prior to antibiotic therapy. Chest CT was obtained to rule out alternative explanations for shortness of breath such as PE, radiation pneumonitis, pneumothorax, lung abscess, empyema. It does confirm multifocal pneumonia, read demonstrates her previously known lung cancer, but does not show other concerning abnormality such as PE. CT chest PE protocol IMPRESSION: No pulmonary embolism. Interval development of right greater than left basilar consolidations and right middle lobe consolidation suggestive of multifocal pneumonia, possibly related to aspiration given distribution. Pulmonary emphysema. Re-demonstration of 1.9 centimeter left lower lobe nodule with interval development of cavitation, but overall relatively unchanged in size. Recommend continued oncological surveillance as clinically indicated. 3. Bronchospasm: She has a history of wheezing and bronchospasm. She was complaining wheeziness here in the ER. She received DuoNeb with improvement in her wheezing. Fortunately the beta agonist did not contribute to any significant worsening of her tachycardia/AFib with RVR. Will also add steroids for bronchospasm. Discussed with hospitalist, who will admit. <Guillaume Ortega MD - Last Filed: 06/24/23 01:31> Vital Signs Vital signs: Initial Vital Signs Temperature Source Temporal Artery Scan 06/23/23 21:04 Pulse Rate 103 H 06/23/23 21:04 Pulse Rhythm Regular 06/23/23 21:04 Respiratory Rate 16 06/23/23 21:04 Blood Pressure 91/62 06/23/23 21:04 Blood Pressure Mean 71 06/23/23 21:04 Blood Pressure Position Sitting 06/23/23 21:04 Pulse Oximetry 92 06/23/23 21:04 Oxygen Delivery Method Room Air 06/23/23 21:04 Vital Signs Pulse Rate 103 H 06/23/23 21:04 Respiratory Rate 16 06/23/23 21:04 Blood Pressure 91/62 06/23/23 21:04 Pulse Oximetry 92 06/23/23 21:04 Oxygen Delivery Method Room Air 06/23/23 21:04 Temperature 98.2 F 06/25/23 22:44 Pulse Rate 116 H 06/25/23 22:44 Respiratory Rate 20 06/25/23 22:44 Blood Pressure 100/71 06/25/23 22:44 Pulse Oximetry 90 06/25/23 22:44 Oxygen Delivery Method Room Air 06/25/23 22:44 <Laura Solorzano MD - Last Filed: 06/25/23 23:11> Initial Vital Signs Temperature Source Temporal Artery Scan 06/23/23 21:04 Pulse Rate 103 H 06/23/23 21:04 Pulse Rhythm Regular 06/23/23 21:04 Respiratory Rate 16 06/23/23 21:04 Blood Pressure 91/62 06/23/23 21:04 Blood Pressure Mean 71 06/23/23 21:04 Blood Pressure Position Sitting 06/23/23 21:04 Pulse Oximetry 92 06/23/23 21:04 Oxygen Delivery Method Room Air 06/23/23 21:04 Vital Signs Pulse Rate 103 H 06/23/23 21:04 Respiratory Rate 16 06/23/23 21:04 Blood Pressure 91/62 06/23/23 21:04 Pulse Oximetry 92 06/23/23 21:04 Oxygen Delivery Method Room Air 06/23/23 21:04 Temperature 98.2 F 06/25/23 22:44 Pulse Rate 116 H 06/25/23 22:44 Respiratory Rate 20 06/25/23 22:44 Blood Pressure 100/71 06/25/23 22:44 Pulse Oximetry 90 06/25/23 22:44 Oxygen Delivery Method Room Air 06/25/23 22:44 <Guillaume Ortega MD - Last Filed: 06/24/23 01:31> MDM - Fever Lab Data Attestation: I reviewed the patient's lab results. <Laura Solorzano MD - Last Filed: 06/25/23 23:11> Labs: Lab Results 06/23/23 06/23/23 06/23/23 Range/Units 21:33 21:40 21:58 WBC 4.05 L (4.50-11.00) K/uL RBC 3.21 L (4.00-5.20) m/uL Hgb 9.9 L (12.0-16.0) gm/dL Hct 29.3 L (33.0-51.0) % MCV 91 (80-100) fL MCH 31 (26-34) pg MCHC 34 (32-36) gm/dL RDW Coeff of Álvaro 14.4 (11.5-15.5) % Plt Count 183 (140-440) K/uL Neut % (Auto) 94.3 H (42.0-72.0) % Lymph % (Auto) 1.5 L (20-44) % [place] % (Auto) 3.7 (0.0-11.0) % Eos % (Auto) 0.0 (0.0-7.0) % Baso % (Auto) 0.0 (0.0-3.0) % Neut # (Auto) 3.80 (1.7-7.0) K/uL Lymph # (Auto) 0.10 L (0.90-2.90) K/uL [place] # (Auto) 0.10 (0.00-0.90) K/UL Eos # (Auto) 0.00 (0.00-0.50) K/uL Baso # (Auto) 0.00 (0.00-0.30) K/uL Abs Immat Gran (auto) 0.00 (0.00-0.30) K/uL Imm/Tot Granulo (auto) 0.5 % VBG pH 7.503 H (7.32-7.43) VBG pCO2 33 L (40-50) mmHG VBG pO2 56.4 H (25-47) mmHG VBG HCO3 26 (21-28) mmol/L Sodium 133 L (135-149) mmol/L Potassium 3.1 L (3.6-5.1) mmol/L Chloride 100 (96-114) mmol/L Carbon Dioxide 27 (20-32) mmol/L Anion Gap 6 L (7-15) mEq/L BUN 9 (7-30) mg/dL Creatinine 0.6 (0.5-1.5) mg/dL Estimated Creat Clear 34.08 Estimated GFR 95 ml/min Glucose 111 (60-115) mg/dL Lactate 1.1 (0.5-1.9) mmol/L Calcium 8.6 (8.4-10.6) mg/dL Magnesium 1.6 (1.5-2.6) mg/dL Total Bilirubin 0.9 (0.1-1.5) mg/dL AST 24 (12-35) U/L ALT 19 (4-35) U/L Alkaline Phosphatase 50 (40-150) U/L C-Reactive Protein 17.4 H (0.5-1.0) mg/dL NT-Pro-B Natriuret Pep 2450 pg/mL Total Protein 5.7 L (6.0-8.3) g/dL Albumin 3.0 L (3.3-5.0) g/dL Procalcitonin 0.15 (<0.50) ng/mL Urine Color (Yellow) Urine Appearance (Clear) Urine pH (5.0-8.5) Ur Specific [place] (1.000-1.030) Urine Protein (Negative) Urine Glucose (UA) (Negative) Urine Ketones (Negative) Urine Blood (Negative) Urine Nitrite (Negative) Urine Bilirubin (Negative) Urine Urobilinogen (0.2-1.0) Ur Leukocyte Esterase (Negative) Urine RBC (0-2) Urine WBC (0-5) Ur Squamous Epith Cells (None-Few) Urine Bacteria (None) SARS-CoV-2 (PCR) Negative SARS-CoV-2 (Negative) Influenza Type A (PCR) Negative PCR FLU A (Negative) Influenza Type B (PCR) Negative PCR FLU B (Negative) RSV (PCR) Negative PCR RSV (Negative) Lab Acknowledgement POC Troponin I 0.02 (0.01-0.04) ng/ml 06/23/23 06/23/23 06/24/23 Range/Units 22:18 23:13 01:11 WBC (4.50-11.00) K/uL RBC (4.00-5.20) m/uL Hgb (12.0-16.0) gm/dL Hct (33.0-51.0) % MCV (80-100) fL MCH (26-34) pg MCHC (32-36) gm/dL RDW Coeff of Álvaro (11.5-15.5) % Plt Count (140-440) K/uL Neut % (Auto) (42.0-72.0) % Lymph % (Auto) (20-44) % [place] % (Auto) (0.0-11.0) % Eos % (Auto) (0.0-7.0) % Baso % (Auto) (0.0-3.0) % Neut # (Auto) (1.7-7.0) K/uL Lymph # (Auto) (0.90-2.90) K/uL [place] # (Auto) (0.00-0.90) K/UL Eos # (Auto) (0.00-0.50) K/uL Baso # (Auto) (0.00-0.30) K/uL Abs Immat Gran (auto) (0.00-0.30) K/uL Imm/Tot Granulo (auto) % VBG pH (7.32-7.43) VBG pCO2 (40-50) mmHG VBG pO2 (25-47) mmHG VBG HCO3 (21-28) mmol/L Sodium (135-149) mmol/L Potassium (3.6-5.1) mmol/L Chloride (96-114) mmol/L Carbon Dioxide (20-32) mmol/L Anion Gap (7-15) mEq/L BUN (7-30) mg/dL Creatinine (0.5-1.5) mg/dL Estimated Creat Clear Estimated GFR ml/min Glucose (60-115) mg/dL Lactate (0.5-1.9) mmol/L Calcium (8.4-10.6) mg/dL Magnesium (1.5-2.6) mg/dL Total Bilirubin (0.1-1.5) mg/dL AST (12-35) U/L ALT (4-35) U/L Alkaline Phosphatase (40-150) U/L C-Reactive Protein (0.5-1.0) mg/dL NT-Pro-B Natriuret Pep pg/mL Total Protein (6.0-8.3) g/dL Albumin (3.3-5.0) g/dL Procalcitonin (<0.50) ng/mL Urine Color Yellow (Yellow) Urine Appearance Clear (Clear) Urine pH 7.0 (5.0-8.5) Ur Specific [place] 1.015 (1.000-1.030) Urine Protein Negative (Negative) Urine Glucose (UA) Negative (Negative) Urine Ketones Negative (Negative) Urine Blood Trace-intact A (Negative) Urine Nitrite Negative (Negative) Urine Bilirubin Negative (Negative) Urine Urobilinogen 0.2 (0.2-1.0) Ur Leukocyte Esterase Trace A (Negative) Urine RBC 0-2 (0-2) Urine WBC 0-2 (0-5) Ur Squamous Epith Cells None (None-Few) Urine Bacteria None (None) SARS-CoV-2 (PCR) (Negative) Influenza Type A (PCR) (Negative) Influenza Type B (PCR) (Negative) RSV (PCR) (Negative) Lab Acknowledgement Test Added Test Added POC Troponin I (0.01-0.04) ng/ml <Laura Solorzano MD - Last Filed: 06/25/23 23:11> Lab Results 06/23/23 06/23/23 06/23/23 Range/Units 21:33 21:40 21:58 WBC 4.05 L (4.50-11.00) K/uL RBC 3.21 L (4.00-5.20) m/uL Hgb 9.9 L (12.0-16.0) gm/dL Hct 29.3 L (33.0-51.0) % MCV 91 (80-100) fL MCH 31 (26-34) pg MCHC 34 (32-36) gm/dL RDW Coeff of Álvaro 14.4 (11.5-15.5) % Plt Count 183 (140-440) K/uL Neut % (Auto) 94.3 H (42.0-72.0) % Lymph % (Auto) 1.5 L (20-44) % [place] % (Auto) 3.7 (0.0-11.0) % Eos % (Auto) 0.0 (0.0-7.0) % Baso % (Auto) 0.0 (0.0-3.0) % Neut # (Auto) 3.80 (1.7-7.0) K/uL Lymph # (Auto) 0.10 L (0.90-2.90) K/uL [place] # (Auto) 0.10 (0.00-0.90) K/UL Eos # (Auto) 0.00 (0.00-0.50) K/uL Baso # (Auto) 0.00 (0.00-0.30) K/uL Abs Immat Gran (auto) 0.00 (0.00-0.30) K/uL Imm/Tot Granulo (auto) 0.5 % VBG pH 7.503 H (7.32-7.43) VBG pCO2 33 L (40-50) mmHG VBG pO2 56.4 H (25-47) mmHG VBG HCO3 26 (21-28) mmol/L Sodium 133 L (135-149) mmol/L Potassium 3.1 L (3.6-5.1) mmol/L Chloride 100 (96-114) mmol/L Carbon Dioxide 27 (20-32) mmol/L Anion Gap 6 L (7-15) mEq/L BUN 9 (7-30) mg/dL Creatinine 0.6 (0.5-1.5) mg/dL Estimated Creat Clear 34.08 Estimated GFR 95 ml/min Glucose 111 (60-115) mg/dL Lactate 1.1 (0.5-1.9) mmol/L Calcium 8.6 (8.4-10.6) mg/dL Magnesium 1.6 (1.5-2.6) mg/dL Total Bilirubin 0.9 (0.1-1.5) mg/dL AST 24 (12-35) U/L ALT 19 (4-35) U/L Alkaline Phosphatase 50 (40-150) U/L C-Reactive Protein 17.4 H (0.5-1.0) mg/dL NT-Pro-B Natriuret Pep 2450 pg/mL Total Protein 5.7 L (6.0-8.3) g/dL Albumin 3.0 L (3.3-5.0) g/dL Procalcitonin 0.15 (<0.50) ng/mL Urine Color (Yellow) Urine Appearance (Clear) Urine pH (5.0-8.5) Ur Specific [place] (1.000-1.030) Urine Protein (Negative) Urine Glucose (UA) (Negative) Urine Ketones (Negative) Urine Blood (Negative) Urine Nitrite (Negative) Urine Bilirubin (Negative) Urine Urobilinogen (0.2-1.0) Ur Leukocyte Esterase (Negative) Urine RBC (0-2) Urine WBC (0-5) Ur Squamous Epith Cells (None-Few) Urine Bacteria (None) SARS-CoV-2 (PCR) Negative SARS-CoV-2 (Negative) Influenza Type A (PCR) Negative PCR FLU A (Negative) Influenza Type B (PCR) Negative PCR FLU B (Negative) RSV (PCR) Negative PCR RSV (Negative) Lab Acknowledgement POC Troponin I 0.02 (0.01-0.04) ng/ml 06/23/23 06/23/23 06/24/23 Range/Units 22:18 23:13 01:11 WBC (4.50-11.00) K/uL RBC (4.00-5.20) m/uL Hgb (12.0-16.0) gm/dL Hct (33.0-51.0) % MCV (80-100) fL MCH (26-34) pg MCHC (32-36) gm/dL RDW Coeff of Álvaro (11.5-15.5) % Plt Count (140-440) K/uL Neut % (Auto) (42.0-72.0) % Lymph % (Auto) (20-44) % [place] % (Auto) (0.0-11.0) % Eos % (Auto) (0.0-7.0) % Baso % (Auto) (0.0-3.0) % Neut # (Auto) (1.7-7.0) K/uL Lymph # (Auto) (0.90-2.90) K/uL [place] # (Auto) (0.00-0.90) K/UL Eos # (Auto) (0.00-0.50) K/uL Baso # (Auto) (0.00-0.30) K/uL Abs Immat Gran (auto) (0.00-0.30) K/uL Imm/Tot Granulo (auto) % VBG pH (7.32-7.43) VBG pCO2 (40-50) mmHG VBG pO2 (25-47) mmHG VBG HCO3 (21-28) mmol/L Sodium (135-149) mmol/L Potassium (3.6-5.1) mmol/L Chloride (96-114) mmol/L Carbon Dioxide (20-32) mmol/L Anion Gap (7-15) mEq/L BUN (7-30) mg/dL Creatinine (0.5-1.5) mg/dL Estimated Creat Clear Estimated GFR ml/min Glucose (60-115) mg/dL Lactate (0.5-1.9) mmol/L Calcium (8.4-10.6) mg/dL Magnesium (1.5-2.6) mg/dL Total Bilirubin (0.1-1.5) mg/dL AST (12-35) U/L ALT (4-35) U/L Alkaline Phosphatase (40-150) U/L C-Reactive Protein (0.5-1.0) mg/dL NT-Pro-B Natriuret Pep pg/mL Total Protein (6.0-8.3) g/dL Albumin (3.3-5.0) g/dL Procalcitonin (<0.50) ng/mL Urine Color Yellow (Yellow) Urine Appearance Clear (Clear) Urine pH 7.0 (5.0-8.5) Ur Specific [place] 1.015 (1.000-1.030) Urine Protein Negative (Negative) Urine Glucose (UA) Negative (Negative) Urine Ketones Negative (Negative) Urine Blood Trace-intact A (Negative) Urine Nitrite Negative (Negative) Urine Bilirubin Negative (Negative) Urine Urobilinogen 0.2 (0.2-1.0) Ur Leukocyte Esterase Trace A (Negative) Urine RBC 0-2 (0-2) Urine WBC 0-2 (0-5) Ur Squamous Epith Cells None (None-Few) Urine Bacteria None (None) SARS-CoV-2 (PCR) (Negative) Influenza Type A (PCR) (Negative) Influenza Type B (PCR) (Negative) RSV (PCR) (Negative) Lab Acknowledgement Test Added Test Added POC Troponin I (0.01-0.04) ng/ml <Guillaume Ortega MD - Last Filed: 06/24/23 01:31> Imaging Data Chest x-ray: Attestation: I have reviewed the pertinent imaging results. <Laura Mensah MD - Last Filed: 06/25/23 23:11> My impression: No significant effusion, believe the left-sided lesions might relate to her primary cancer. Maybe has some changes on the right lung that could be infiltrate. Await Radiology over-read, will consider doing CT imaging as well. <Laura Solorzano MD - Last Filed: 06/25/23 23:11> Radiologist's impression: Patient: SHMUEL RIVERA Facility:?[facility] Patient ID:?[id number] Site Patient ID:?[id number]. Site :?[id number] Study:?XRay Chest 2 views-06/23/2023 10:23:30 PM Ordering Physician:Hannah Sanchez Final Report: INDICATION: Cough, fever, lung cancer. TECHNIQUE: Chest 2 views. COMPARISON: CT chest 04/29/2023. Chest radiograph 09/23/2015. FINDINGS: Tiny bilateral pleural effusions. Patchy opacities in the right lung base suspicious for pneumonia. There are two small nodular opacities in the left perihilar region which may relate to the known malignancy. Pulmonary hyperinflation. No pneumothorax. Normal heart size and pulmonary vascularity. Right IJ Port-A-Cath with the tip near the cavoatrial junction. Surgical clips near the gastroesophageal junction. The bones are unremarkable. IMPRESSION: 1. Patchy opacities in the right lung base suspicious for pneumonia. 2. Nodular left perihilar opacities may relate to the known malignancy. 3. Tiny bilateral pleural effusions. Dictated by Juani Akins MD @ 06/23/2023 11:39:02 PM (Electronic Signature) <Laura Solorzano MD - Last Filed: 06/25/23 23:11> ECG Data Attestation: I personally reviewed and interpreted this ECG as follows: (Atrial fibrillation with RVR, 134 beats per minute. No definitive ischemia, some artifact noted. QT corrected 462 milliseconds.) <Laura Solorzano MD - Last Filed: 06/25/23 23:11> ECG interpretation date: 06/23/23 <Laura Solorzano MD - Last Filed: 06/25/23 23:11> ECG interpretation time: 22:08 <Laura Solorzano MD - Last Filed: 06/25/23 23:11> Discharge Plan Discharge Clinical Impression: Pneumonia, Atrial fibrillation with RVR <Laura Solorzano MD - Last Filed: 06/25/23 23:11> Patient Disposition: Admitted As Observation <Laura Solorzano MD - Last Filed: 06/25/23 23:11> Condition: Stable <Laura Solorzano MD - Last Filed: 06/25/23 23:11>
[2023-06-23 21:32] VITALS: O2SAT 91
--- NOTE | 2023-06-23 21:32 | CRLHL7_ITS ---
For Patients: As a result of the Century Cures Act, medical imaging exams and procedure reports are released immediately into your electronic medical record. You may view this report before your referring provider. If you have questions, please contact your health care provider. INDICATION: Cough, fever, lung cancer. TECHNIQUE: Chest 2 views. COMPARISON: CT chest 04/29/2023. Chest radiograph 09/23/2015. FINDINGS: Tiny bilateral pleural effusions. Patchy opacities in the right lung base suspicious for pneumonia. There are two small nodular opacities in the left perihilar region which may relate to the known malignancy. Pulmonary hyperinflation. No pneumothorax. Normal heart size and pulmonary vascularity. Right IJ Port-A-Cath with the tip near the cavoatrial junction. Surgical clips near the gastroesophageal junction. The bones are unremarkable. IMPRESSION: 1. Patchy opacities in the right lung base suspicious for pneumonia. 2. Nodular left perihilar opacities may relate to the known malignancy. 3. Tiny bilateral pleural effusions. Dictated by Juani Akins MD @ 06/23/2023 11:39:02 PM (Electronically Signed)
[2023-06-23] MEDS: LIDOCAINE/PRILOCAINE 2.5-2.5% CREAM 1 APPLIC TOPICAL (21:34)
[2023-06-23] MEDS: 0.9 % SODIUM CHLORIDE 1000 ml 1,000 ML IV (21:58)
[2023-06-23 22:18] VITALS: O2SAT 91
[2023-06-23 22:20] LABS: HCO3 VBG 26 mmol/L (21-28); Lactate* 1.1 mmol/L (0.5-1.9); PCO2 VBG 33 mmHG (40-50); PO2 VBG 56.4 mmHG (25-47); pH VBG 7.503 (7.32-7.43)
[2023-06-23 22:23] LABS: Hematocrit 29.3 % (33.0-51.0); Hemoglobin* 9.9 gm/dL (12.0-16.0); Immature Granulocytes Pct Auto 0.5 %; Lymphocytes Percent Auto 1.5 % (20-44); Mean Corpuscular HGB Conc 34 gm/dL (32-36); Mean Corpuscular Hemoglobin 31 pg (26-34); Mean Corpuscular Volume 91 fL (80-100); Monocytes Percent Auto 3.7 % (0.0-11.0); Neutrophils Percent Auto 94.3 % (42.0-72.0); Platelet Count* 183 K/uL (140-440); RDW Coefficient of Variation % 14.4 % (11.5-15.5); Red Blood Count 3.21 m/uL (4.00-5.20); White Blood Count* 4.05 K/uL (4.50-11.00)
[2023-06-23 22:24] LABS: Slide Review Reflex No
[2023-06-23 22:31] LABS: PCR FLU A Negative PCR FLU A (Negative); PCR FLU B Negative PCR FLU B (Negative); PCR RSV Negative PCR RSV (Negative)
[2023-06-23 22:35] LABS: SARS PCR* Negative SARS-CoV-2 (Negative)
[2023-06-23 22:40] LABS: Chloride* 100 mmol/L (96-114); Sodium* 133 mmol/L (135-149)
[2023-06-23 22:41] LABS: Potassium* 3.1 mmol/L (3.6-5.1)
[2023-06-23 22:42] LABS: Troponin, Point-of-Care* 0.02 ng/ml (0.01-0.04)
[2023-06-23 22:43] LABS: Creatinine* 0.6 mg/dL (0.5-1.5); Est. Creatinine Clearance* 34.08; Estimated Glomerular Filt Rate 95 ml/min
[2023-06-23 22:44] LABS: Alanine Aminotransferase* 19 U/L (4-35); Alkaline Phosphatase* 50 U/L (40-150); Anion Gap 6 mEq/L (7-15); Aspartate Amino Transferase* 24 U/L (12-35); Bilirubin Total* 0.9 mg/dL (0.1-1.5); Blood Urea Nitrogen* 9 mg/dL (7-30); Calcium* 8.6 mg/dL (8.4-10.6); Carbon Dioxide* 27 mmol/L (20-32); Glucose* 111 mg/dL (60-115); Total Protein* 5.7 g/dL (6.0-8.3)
[2023-06-23 23:00] LABS: Procalcitonin* 0.15 ng/mL (<0.50)
--- NOTE | 2023-06-23 23:06 | CRLHL7_ITS ---
For Patients: As a result of the Century Cures Act, medical imaging exams and procedure reports are released immediately into your electronic medical record. You may view this report before your referring provider. If you have questions, please contact your health care provider. INDICATION: Chest pain, cough, lung cancer. TECHNIQUE: CT chest PE was acquired with 95 cc Isovue 370 IV contrast. COMPARISON: April 29, 2023. FINDINGS: Heart and vasculature: Contrast opacification of the pulmonary arterial tree is adequate. No sign of pulmonary embolism. Heart size is normal. Coronary artery calcifications. Thoracic aorta and pulmonary artery are normal in caliber. Lungs and pleura: Pulmonary emphysema. Bibasilar consolidations, greater on the right side. Additional right middle lobe consolidation. Redemonstration of 1.9 centimeter left lower lobe nodule with interval development of cavitation, overall relatively unchanged size. No pleural effusions, pleural thickening, or pneumothorax. Lymph nodes/mediastinum: No mediastinal, hilar, or axillary adenopathy. Chest wall: Right chest wall port. No masses. Upper abdomen: No acute or significant findings. Bones: Unremarkable for age. IMPRESSION: No pulmonary embolism. Interval development of right greater than left basilar consolidations and right middle lobe consolidation suggestive of multifocal pneumonia, possibly related to aspiration given distribution. Pulmonary emphysema. Re-demonstration of 1.9 centimeter left lower lobe nodule with interval development of cavitation, but overall relatively unchanged in size. Recommend continued oncological surveillance as clinically indicated. Please note that all CT scans at this facility use dose modulation, iterative reconstruction, and/or weight-based dosing when appropriate to reduce radiation dose to as low as reasonably achievable. Dictated by Shad Swain MD @ 06/24/2023 12:58:51 AM (Electronically Signed)
[2023-06-23 23:10] LABS: C Reactive Protein* 17.4 mg/dL (0.5-1.0); NT Pro B Type NatriureticPept* 2450 pg/mL
[2023-06-23] MEDS: fentaNYL 100 MCG/2 ML inj 25 MCG IVP (23:25)
[2023-06-23] MEDS: METOPROLOL TARTRATE 1 MG/ML inj 2.5 MG IVP (23:26)
[2023-06-23] MEDS: 0.9 % SODIUM CHLORIDE 1000 ml 1,000 ML 500 ML IV (23:26)
[2023-06-23] MEDS: METOPROLOL TARTRATE 25 MG TABLET PO (23:26)
[2023-06-23 23:40] LABS: Magnesium* 1.6 mg/dL (1.5-2.6)
[2023-06-23 23:58] VITALS: BP 102/80; PULSE 74; RESP 16; O2SAT 95
[2023-06-24] VITALS (12 sets, daily range): BP systolic 96–130; BP diastolic 60–85; PULSE 81–129; RESP 12–88; TEMP 36.1–37.7; O2SAT 92–98; BMI 17.2
[2023-06-24] MEDS: POTASSIUM CHLORIDE 10 MEQ/100 ML PIGGYBACK 100 MEQ IVPB ×2 (00:03→01:50)
[2023-06-24 01:21] LABS: Appearance Urine Clear (Clear); Bilirubin Urine Negative (Negative); Blood Urine Trace-intact (Negative); Color Urine Yellow (Yellow); Glucose Urine Negative (Negative); Ketones Urine Negative (Negative); Leukocyte Esterase Urine Trace (Negative); Nitrite Urine Negative (Negative); Protein Urine Negative (Negative); Specific Gravity Urine 1.015 (1.000-1.030); Urobilinogen Urine 0.2 (0.2-1.0)
[2023-06-24 01:29] LABS: RBC Urine 0-2 (0-2); WBC Urine 0-2 (0-5)
[2023-06-24] MEDS: ERTAPENEM 1 GM in 0.9 % SODIUM CHLORIDE Mini-bag 100 ML IVPB (01:30)
[2023-06-24] MEDS: fentaNYL 100 MCG/2 ML inj 25 MCG IVP (01:42)
[2023-06-24] MEDS: METOPROLOL TARTRATE 1 MG/ML inj 2.5 MG IVP (01:52)
--- NOTE | 2023-06-24 03:56 | P.IMHP_ITS ---
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 She has had radiation therapy all week and got chemo on Saturday. She has had low-grade fevers for the week but developed a fever today of 101.6 and was advised to come to the ER. She endorses that she has been coughing more productive of mucus of varying color and took an tenacity. She has some pain in her back when she coughs. She has had nausea and vomiting and has felt weak. She has had anorexia and has lost 5 pounds this week. She is noted that her heart seemed irregular and was and had some palpitations and she knew that she was in A-fib. She is not anticoagulated for her intermittent atrial fib. She presented to the emergency room tonight and was found to have A-fib with RVR with rates up in the 140s in addition CT findings showing a multifocal pneumonia decision was made to admit. Review of Systems Narrative: Complete review of systems was performed. She has had fever to 101.6 no rigors she has had a productive cough. Palpitations. Weakness nausea. Fatigue. Had dry heaves earlier in the week. Poor appetite. No urinary symptoms. Some mild subjective shortness of breath. Pleuritic chest pain. C. difficile diarrhea has been under control no significant diarrhea currently. Rest of the review of systems was unremarkable note she is there is a lot of stress in the household which she does not feel she is getting a lot of support from her and her adult daughters [facility] Medical History Cerebral aneurysm ?I67.1 - Cerebral aneurysm, nonruptured (ICD-10) PVD (peripheral vascular disease) ?I73.9 - Peripheral vascular disease, unspecified (ICD-10) COPD (chronic obstructive pulmonary disease) ?J44.9 - Chronic obstructive pulmonary disease, unspecified (ICD-10) C. difficile colitis ?A04.72 - Enterocolitis due to Clostridium difficile, not specified as recurrent (ICD-10) Intermittent atrial fibrillation ?I48.0 - Paroxysmal atrial fibrillation (ICD-10) Non-small cell carcinoma of left lung, stage 3 ?C34.92 - Malignant neoplasm of unspecified part of left bronchus or lung (ICD-10) Surgical History S/P colectomy ?Z90.49 - Acquired absence of other specified parts of digestive tract (ICD- 10) Social History What is your current living situation?: I presently have a place to live Problems where you live: no known problems Problems where you live details: na In the past 12 months, utilities in danger of being shut off: no In the past 12 mos, have been you worried that your food would run out before you had money to buy more?: never true In the past 12 mos, the food you bought just didn't last and you didn't have money to buy more?: never true Smoking Status: Former smoker Do you use any of these nicotine containing products: None Second hand tobacco smoke exposure: Yes How often do you have a drink containing alcohol: never How many standard drinks containing alcohol do you have on a typical day: 3 or 4 How often do you have six or more drinks on one occasion: Never AUDIT-C Alcohol total score: 1 Non-prescribed substance use: denies use How often does anyone, including family, friends and others, physically hurt you : never How often does anyone, including family, friends and others, insult or talk down to you: fairly often How often does anyone, including family, friends and others, threaten you with harm: never How often does anyone, including family, friends and others, scream or curse at you: sometimes service: No Meds Home Medications and Allergies Home Medications Medication Instructions Recorded Confirmed Type carvedilol 3.125 mg tablet mg 10/15/22 History lisinopril 20 mg tablet mg 10/15/22 History lisinopril 20 tab 10/15/22 History mg-hydrochlorothiazide 12.5 mg tablet rosuvastatin 20 mg tablet mg 10/15/22 History vancomycin 125 mg capsule mg 10/15/22 History Allergies Allergy/AdvReac Type Severity Reaction Status Date / Time acetaminophen [From Vicodin] Allergy Severe Hypertensio Verified 06/23/23 23:58 n gatifloxacin [From Tequin] Allergy Severe Anaphylaxis Verified 06/23/23 23:58 hydrocodone [From Vicodin] Allergy Severe Hypertensio Verified 06/23/23 23:58 n meperidine [From Demerol] Allergy Severe Anaphylaxis Verified 06/23/23 23:58 morphine Allergy Severe SOB Verified 06/23/23 23:58 Penicillins Allergy Severe Anaphylaxis Verified 06/23/23 23:58 ampicillin [From Unasyn] Allergy Unknown Nausea Verified 06/23/23 23:58 doxycycline Allergy Unknown other Verified 06/23/23 23:58 magnesium citrate Allergy Unknown Diarrhea Verified 06/23/23 23:58 metronidazole [From Flagyl] Allergy Unknown Flushing Verified 06/23/23 23:58 sulbactam [From Unasyn] Allergy Unknown Nausea Verified 06/23/23 23:58 sulfamethoxazole Allergy Unknown Nausea Verified 06/23/23 23:58 [From Sulfamethoxazole-Trimethoprim] trimethoprim Allergy Unknown Nausea Verified 06/23/23 23:58 [From Sulfamethoxazole-Trimethoprim] ceftin Allergy Severe Anaphylaxis Uncoded 06/23/23 23:58 iron sucrose Allergy Severe Anaphylaxis Uncoded 06/23/23 23:58 Exam Narrative: Exam Narrative: Pleasant awake alert no acute distress Blood pressure 129/383 pulse 129 temperature 99.1 breathing 18 times a minute Head is atraumatic sclera nonicteric extraocular muscles are intact pupils equal round reactive oropharynx moist Neck no adenopathy per nurse exam no JVD Chest clear to auscultation no rales or wheezes Cor irregularly irregular rate 120s no murmur appreciated Abdomen scaphoid soft mild tenderness right lower quadrant over the prior colostomy takedown site that is chronic Extremities no edema good distal perfusion Neurologic nonfocal Back and skin some dermatologic changes from old radiation field left posterior thorax Const: Vital Signs, click to edit/add: Vital Signs - 24 hr 06/23/23 21:04 06/23/23 21:11 06/23/23 21:32 Temperature 99.1 F Pulse Rate Pulse Rate [Apical ] Pulse Rate [Left P ulse Oximeter] 103 H Respiratory Rate 16 Blood Pressure Blood Pressure [Ri ght Arm] Blood Pressure [Ri ght Upper Arm] 91/62 Pulse Oximetry 92 91 Oxygen Delivery Me thod Room Air 06/23/23 22:18 06/23/23 23:58 06/24/23 01:47 Temperature Pulse Rate 74 123 H Pulse Rate [Apical ] Pulse Rate [Left P ulse Oximeter] Respiratory Rate 16 16 Blood Pressure 102/80 119/82 Blood Pressure [Ri ght Arm] Blood Pressure [Ri ght Upper Arm] Pulse Oximetry 91 95 92 Oxygen Delivery Me thod Room Air 06/24/23 02:45 06/24/23 02:45 Temperature 99.1 F Pulse Rate Pulse Rate [Apical ] 129 H Pulse Rate [Left P ulse Oximeter] Respiratory Rate 16 16 Blood Pressure Blood Pressure [Ri ght Arm] 129/85 Blood Pressure [Ri ght Upper Arm] Pulse Oximetry 97 98 Oxygen Delivery Me thod Room Air Room Air Hospitalist - H&P: Result Labs Labs: Short CBC 06/23/23 Range/Units 21:58 WBC 4.05 L (4.50-11.00) K/uL Hgb 9.9 L (12.0-16.0) gm/dL Hct 29.3 L (33.0-51.0) % Plt Count 183 (140-440) K/uL BMP 06/23/23 21:58 Sodium 133 L Potassium 3.1 L Chloride 100 Carbon Dioxide 27 BUN 9 Creatinine 0.6 Glucose 111 Calcium 8.6 Liver Function 06/23/23 Range/Units 21:58 Total Bilirubin 0.9 (0.1-1.5) mg/dL AST 24 (12-35) U/L ALT 19 (4-35) U/L Alkaline Phosphatase 50 (40-150) U/L Albumin 3.0 L (3.3-5.0) g/dL Urine 06/24/23 Range/Units 01:11 Urine Color Yellow (Yellow) Urine Appearance Clear (Clear) Urine pH 7.0 (5.0-8.5) Ur Specific [place] 1.015 (1.000-1.030) Urine Protein Negative (Negative) Urine Glucose (UA) Negative (Negative) ECG Attestation: I personally reviewed and interpreted this ECG as follows: (Atrial fib rate [address]-T wave flattening QT corrected 0.46) ECG interpretation date: 06/24/23 ECG interpretation time: 04:[address] scan - chest: Radiologist's impression: No evidence of pulmonary emboli. Multifocal pneumonia with worsening conso lidation right middle lobe Assessment and Plan Assessment and plan (1) Atrial fibrillation with RVR: Status: Acute (2) Pneumonia: Status: Acute (3) Non-small cell carcinoma of left lung, stage 3: Status: Acute (4) COPD (chronic obstructive pulmonary disease): Status: Acute Plan 73-year-old with history of stage IIIb non-small cell lung carcinoma and active chemo and radiation therapy last chemo was on Saturday, history of intermittent atrial fibrillation, history of recalcitrant D for a seed difficile colitis on chronic pression and COPD who presents with a week of not feeling well and developing a fever to 101 at home today. Physical exam is remarkable for atrial fib with RVR. Her laboratory data is remarkable for hypokalemia white count. Normochromic normocytic anemia. And imaging shows multifocal pneumonia bilaterally at the bases in the right middle lobe. Problems include: 1. Pneumonia multifocal in the setting of known lung cancer and recent chemotherapy 2. Atrial fib and RVR in the setting of known intermittent atrial fibrillation currently not anticoagulated 3. Stable COPD 4. Mild hypokalemia 5. History of refractory C. difficile on suppression therapy 6 history of peripheral vascular disease Plan we will treat with ertapenem and vancomycin empirically given the possibility of healthcare associated pneumonia. Blood cultures are pending. Patient is not currently toxic however I think we need to initiate broad- spectrum until we watch her clinical course. We will post pharmacy to dose v ancomycin. She received her initial dose in the emergency room 2 we will continue to address rate control. She has responded well with metoprolol tartrate IV in the ED however she is currently back in RVR with rates in the 130s. We will give metoprolol tartrate 5 mg IV push every 10 minutes x3 and hold for heart rate less than 100 or systolic blood pressure at less than 102 3. DVT prophylaxis will be initiated with enoxaparin. 40 mg subcu daily. Discussion regarding 8 future anticoagulation with her atrial fibrillation will be deferred to the daytime. 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 Camera etime initiation 0305. Camera termination [id number]
[2023-06-24] MEDS: PROCHLORPERAZINE 5 MG/ML VIAL IV ×2 (04:25→19:23)
[2023-06-24] MEDS: SODIUM CHLORIDE 0.9 % (FLUSH) 10 ML SYRINGE 5 ML IVF ×4 (04:25→19:23)
[2023-06-24] MEDS: METOPROLOL TARTRATE 1 MG/ML inj 5 MG IVP ×2 (04:25→04:52)
--- NOTE | 2023-06-24 05:33 | PC.NURSE ---
Pt arrived from ED approx 0230, pleasant and cooperative. N/V present, denies pain, a-fib with RVR low 100's with occasional increases to 120's. Pt states her , Evan, is NOT allowed on the floor to visit and no information be given to him or anyone else via phone. Port present at R clavicle, not accessed, and per pt this is a new triangle port and no one is allowed to mess with it. Pt adequately oxygenated on RA.
[2023-06-24 07:50] LABS: Basophils Percent Auto 0.3 % (0.0-3.0); Hematocrit 28.2 % (33.0-51.0); Hemoglobin* 9.5 gm/dL (12.0-16.0); Immature Granulocytes Pct Auto 0.3 %; Lymphocytes Percent Auto 1.8 % (20-44); Mean Corpuscular HGB Conc 34 gm/dL (32-36); Mean Corpuscular Hemoglobin 31 pg (26-34); Mean Corpuscular Volume 93 fL (80-100); Monocytes Percent Auto 3.9 % (0.0-11.0); Neutrophils Percent Auto 93.7 % (42.0-72.0); Platelet Count* 171 K/uL (140-440); RDW Coefficient of Variation % 14.5 % (11.5-15.5); Red Blood Count 3.05 m/uL (4.00-5.20); White Blood Count* 3.33 K/uL (4.50-11.00)
[2023-06-24 08:02] LABS: Slide Review Reflex No
[2023-06-24 08:05] LABS: Chloride* 104 mmol/L (96-114); Potassium* 3.2 mmol/L (3.6-5.1); Sodium* 135 mmol/L (135-149)
[2023-06-24 08:08] LABS: Anion Gap 6 mEq/L (7-15); Blood Urea Nitrogen* 5 mg/dL (7-30); Carbon Dioxide* 25 mmol/L (20-32); Creatinine* 0.5 mg/dL (0.5-1.5); Est. Creatinine Clearance* 35.99; Estimated Glomerular Filt Rate 99 ml/min; Glucose* 85 mg/dL (60-115)
[2023-06-24 08:09] LABS: Magnesium* 1.5 mg/dL (1.5-2.6)
[2023-06-24] MEDS: carvediloL 6.25 MG TABLET 3.125 MG PO (09:22)
[2023-06-24] MEDS: VANCOMYCIN 125 MG CAPSULE PO (09:22)
[2023-06-24] MEDS: ONDANSETRON ODT 4 MG TAB PO (11:15)
[2023-06-24] MEDS: ALBUTEROL SULFATE 2.5 MG/3 ML VIAL.NEB NEB (11:15)
[2023-06-24] MEDS: LORazepam 0.5 MG TABLET PO (11:15)
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
[2023-06-24] MEDS: OXYCODONE 1 MG/ML ORAL SOLN PO (12:10)
[2023-06-24] MEDS: METOPROLOL TARTRATE 50 MG TABLET PO ×2 (14:21→21:22)
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
[2023-06-24] MEDS: SUCRALFATE 1 GM TABLET PO ×2 (17:15→21:24)
[2023-06-24] MEDS: IPRAT-ALBUT 0.5-2.5 MG/3 ML NEB 1 NEB IH (19:16)
[2023-06-24] MEDS: OLANZapine 5 MG TAB.RAPDIS PO (21:22)
[2023-06-24] MEDS: ENOXAPARIN 40 MG/0.4 ML INJ SUBCUT (21:22)
[2023-06-24] MEDS: ROSUVASTATIN CALCIUM 10 MG TABLET 20 MG PO (21:23)
--- NOTE | 2023-06-24 23:21 | PC.NURSE ---
Shift [id number]- Patient states nausea this evening- PRN medication administered with relief- see eMAR. She also states some pain this evening, but declines need for medication. Appetite is poor. She is found pulling off tele stickers and leads. She stated they were bothering her skin and also that we were done with them since we were not using them anymore. Patient educated and agreeable to putting tele back on after having a break from the stickers for a while, which was done. She denies SOB. Occasional cough noted. She is sleepy on and off throughout shift.
[2023-06-25] VITALS (12 sets, daily range): BP systolic 82–118; BP diastolic 62–87; PULSE 83–133; RESP 18–22; TEMP 36.8–37.8; O2SAT 90–95
[2023-06-25] MEDS: IPRAT-ALBUT 0.5-2.5 MG/3 ML NEB 1 NEB IH ×4 (00:27→19:19)
[2023-06-25] MEDS: ERTAPENEM 1 GM in 0.9 % SODIUM CHLORIDE Mini-bag 100 ML IVPB (01:46)
[2023-06-25] MEDS: METOPROLOL TARTRATE 25 MG TABLET PO ×2 (05:45→16:29)
[2023-06-25] MEDS: SODIUM CHLORIDE 0.9 % (FLUSH) 10 ML SYRINGE IVF ×2 (05:47→08:31)
[2023-06-25] MEDS: HEPARIN 500 UNIT/5 ML SYRINGE IVF ×2 (05:47→08:30)
[2023-06-25] MEDS: SUCRALFATE 1 GM TABLET PO (06:33)
[2023-06-25 06:57] LABS: Hematocrit 30.9 % (33.0-51.0); Hemoglobin* 10.4 gm/dL (12.0-16.0); Mean Corpuscular HGB Conc 34 gm/dL (32-36); Mean Corpuscular Hemoglobin 31 pg (26-34); Mean Corpuscular Volume 91 fL (80-100); Platelet Count* 214 K/uL (140-440); Red Blood Count 3.38 m/uL (4.00-5.20); White Blood Count* 2.44 K/uL (4.50-11.00)
--- NOTE | 2023-06-25 06:59 | PC.NURSE ---
End of shift: A&O. VSS w/ sats >90% on RA. Denies pain. SBA to bathroom. Around 0530 HR increased. EKG done shows Afib. PRN metoprolol given. Pt appeared to sleep comfortably throughout the night.
[2023-06-25 07:00] LABS: Slide Review Reflex No
[2023-06-25 07:18] LABS: INR 1.08 (0.91-1.10); Prothrombin Time 14.7 Seconds
[2023-06-25] MEDS: METOPROLOL TARTRATE 50 MG TABLET PO (08:30)
[2023-06-25] MEDS: SODIUM CHLORIDE 0.9 % (FLUSH) 10 ML SYRINGE 5 ML IVF ×2 (08:30→20:21)
[2023-06-25] MEDS: VANCOMYCIN 125 MG CAPSULE PO (08:30)
--- NOTE | 2023-06-25 11:38 | P.IMPN_ITS ---
Progress Note: A&P Assessment and plan (1) Pneumonia: Problem details: - Multifocal - continues to improve, remains on room air. Continue ertapenem and vancomycin to cover for potential healthcare acquired pneumonia with plan to transition to oral antibiotics on discharge. - DuoNebs q.i.d., albuterol nebs q.4 hours p.r.n. - Mucinex b.i.d. Status: Acute (2) Non-small cell carcinoma of left lung, stage 3: Problem details: - Outpatient palliative chemo and radiation. Status: Chronic (3) COPD (chronic obstructive pulmonary disease): Problem details: - This does not appear to be contributing to dyspnea at present. Continue nebs, pulmonary support. Status: Chronic (4) Atrial fibrillation with RVR: Problem details: - appears to be new diagnosis. Holter monitor 07/2022 showing NSR and episodes of atrial tachycardia. Current EKG showing AFib - continue metoprolol 50 mg b.i.d. (rate improved with morning dose), 25 mg q.4 hours p.r.n. - per [facility] 06/24, patient would benefit from anticoagulation for stroke prevention. R ICA aneurysm is not a contraindication to this. - discussed anticoagulation (no significant history of GI bleed per review), including risks and benefits. Patient and daughter would prefer to take this information back to her PCP prior to initiating anticoagulation. - continue low dose lovenox for VTE prophylaxis Status: Acute (5) C. 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 Monitor. Status: Acute (7) Family discord: Problem details: - social and political studies professor consulted. Patient stated several times that she feels safe at home and that she is not homebound. She is oriented x 3 and clear about her medical situation and needs. Status: Acute (8) Hypokalemia: Problem details: - potassium 2.9. Supplement with 40 mEq p.o. b.i.d. x2 doses. Recheck in a.m. with electrolytes. Status: Acute Time Spent With Patient Total time spent: Total time spent caring for the patient today was 45 minutes. This includes time spent for the visit reviewing the chart, time spent during the visit, time spent after the visit and documentation and planning in coordination of care. Subjective Date Seen: 06/25/23 Interval history: The patient is seen with daughter on cellphone. Reports feeling ?better? this morning. Breathing slowly improving. Remains on room air. Continues with chronic chest discomfort, no worse. Remains afebrile. Tolerating orals without nausea vomiting. Most significant complaint this morning is just overall feeling worn out and weak yet. Nursing staff reports patient converted to NSR last evening, back in AFib this morning as confirmed by EKG, rates 120-130s, without new symptoms. Receiving scheduled nebs. Given scheduled metoprolol this morning. Rate has since improved to 100-113. Discussed questionable history of atrial fibrillation and GI bleed. Patient tells me she has been seen by Cardiology in the past. A Holter monitor completed in July 2022 shows PSVT with episodes of atrial tachycardia, without mention of atrial fibrillation. ECG during this admission shows atrial fibrillation. Patient reports episodes of palpitations during this hospital stay as well as in the past. As for GI bleed, there is a note in April 2021 of a single bloody stool which patient tells me was postoperatively. She also has a history of external hemorrhoids. In reviewing her previous colonoscopies, no bleeds noted. Discussed anticoagulation including risks and benefits. Patient tells me she would like to focus on her pneumonia at this time. Exam Narrative: Exam Narrative: PHYSICAL EXAM General: Sitting up in bed, mildly anxious otherwise NAD HEENT: Normocephalic, atraumatic, sclera white, EOMI, oral mucosa moist Cardiovascular: IRRR, No pitting edema Pulmonary: CTA bilaterally upper lobes without rhonchi, rales, expiratory wheezes. No dyspnea Neurological: Alert, answering questions appropriately, cranial nerves intact, no focal findings Extremities: No gross joint deformity or swelling. AROMI Skin: Warm, dry. No rash Const: Vital Signs, click to edit/add: Vital Signs - 24 hr 06/24/23 12:30 06/24/23 15:35 06/24/23 15:40 Temperature 100 F H 99.1 F Pulse Rate 83 Pulse Rate [Apical ] 92 81 Pulse Rate [Pulse Oximeter] Respiratory Rate 12 18 Blood Pressure [Ri ght Arm] 113/67 130/70 Pulse Oximetry 93 95 Oxygen Delivery Me thod Room Air Room Air 06/24/23 19:15 06/24/23 23:00 06/25/23 00:24 Temperature 99.5 F 98.9 F Pulse Rate 86 Pulse Rate [Apical ] 88 Pulse Rate [Pulse Oximeter] 83 Respiratory Rate 88 H 20 Blood Pressure [Ri ght Arm] 116/82 117/73 Pulse Oximetry 92 92 Oxygen Delivery Me thod Room Air Room Air 06/25/23 03:00 06/25/23 05:44 Temperature 99.6 F Pulse Rate Pulse Rate [Apical ] Pulse Rate [Pulse Oximeter] 89 133 H Respiratory Rate 18 Blood Pressure [Ri ght Arm] 114/82 118/87 Pulse Oximetry 93 Oxygen Delivery Me thod Room Air Labs Labs: Laboratory Results - last 24 hr 06/25/23 06:17 WBC 2.44 L RBC 3.38 L Hgb 10.4 L Hct 30.9 L MCV 91 MCH 31 MCHC 34 Plt Count 214 INR 1.08
[2023-06-25 12:09] LABS: Potassium* 2.9 mmol/L (3.6-5.1)
[2023-06-25] MEDS: POTASSIUM BICARB 25 MEQ EFFERVESCENT TAB 50 MEQ PO ×2 (14:12→17:54)
[2023-06-25] MEDS: ACETAMINOPHEN 325 MG TABLET 650 MG PO (17:54)
[2023-06-25] MEDS: OXYCODONE 1 MG/ML ORAL SOLN PO (18:08)
--- NOTE | 2023-06-25 19:34 | PC.NURSE ---
PATIENT HAS PRODUCTIVE COUGH WITH MODERATE AMOUNT CREAMY SPUTUM. ENCOURAGED IS USE. PATIENT HAD TEMP HIGH OF 100.0. TYLENOL ADMINISTERED. TOLERATING MODERATE AMOUNTS OF MEALS. DENIES N/V. ENCOURAGED SUPPLEMENTS ABLE. PATIENT DID EAT 50% OF A MAGIC CUP. UP IND IN ROOM.
[2023-06-25] MEDS: OLANZapine 5 MG TAB.RAPDIS PO (20:20)
[2023-06-25] MEDS: ROSUVASTATIN CALCIUM 10 MG TABLET 20 MG PO (20:20)
[2023-06-25] MEDS: ENOXAPARIN 40 MG/0.4 ML INJ SUBCUT (20:21)
[2023-06-25] MEDS: 0.9 % SODIUM CHLORIDE 500 ML 500 ML IV (21:14)
[2023-06-25] MEDS: DIGOXIN 250 MCG TABLET PO (21:15)
[2023-06-26] VITALS (10 sets, daily range): BP systolic 90–124; BP diastolic 58–91; PULSE 68–133; RESP 16–20; TEMP 36.6–37.5; O2SAT 91–95; BMI 17.2
[2023-06-26] MEDS: ERTAPENEM 1 GM in 0.9 % SODIUM CHLORIDE Mini-bag 100 ML IVPB (02:08)
[2023-06-26] MEDS: HEPARIN 500 UNIT/5 ML SYRINGE IVF ×4 (05:28→17:21)
--- NOTE | 2023-06-26 06:40 | PC.NURSE ---
Addendum entered by Suzie Duffy RN 06/26/23 06:47: Bedtime metoprolol was held per Dr Ferrari's orders Original Note: End of shift: A&Ox3, consistently in Afib w/ rvr through out the night, she stated her heart was racing upon assessment at 2300. Productive intermittent cough with thick/tenacious sputum. Up ad rohith in the room. No reports of pain the whole shift. 1st VS she was hypotensive and tahcy in 130's- Dr Ferrari ordered 500 ml bolus and digoxin. Q6 digoxin is now scheduled. R port is heparin locked. L lower lobe has fine crackles. Slept well throughout the night. ABX were infused. Call light in reach.
[2023-06-26 07:05] LABS: Hematocrit 31.2 % (33.0-51.0); Hemoglobin* 10.5 gm/dL (12.0-16.0); Mean Corpuscular HGB Conc 34 gm/dL (32-36); Mean Corpuscular Hemoglobin 31 pg (26-34); Mean Corpuscular Volume 91 fL (80-100); Platelet Count* 199 K/uL (140-440); Red Blood Count 3.42 m/uL (4.00-5.20)
[2023-06-26 07:20] LABS: Chloride* 103 mmol/L (96-114)
[2023-06-26 07:21] LABS: Sodium* 136 mmol/L (135-149)
[2023-06-26 07:23] LABS: Creatinine* 0.6 mg/dL (0.5-1.5); Est. Creatinine Clearance* 35.99; Estimated Glomerular Filt Rate 95 ml/min
[2023-06-26 07:24] LABS: Anion Gap 5 mEq/L (7-15); Blood Urea Nitrogen* 8 mg/dL (7-30); Calcium* 8.1 mg/dL (8.4-10.6); Carbon Dioxide* 28 mmol/L (20-32); Glucose* 91 mg/dL (60-115); Magnesium* 1.6 mg/dL (1.5-2.6)
[2023-06-26 07:28] LABS: Potassium* 2.8 mmol/L (3.6-5.1)
[2023-06-26 07:31] LABS: Slide Review Reflex Yes; White Blood Count* 1.84 K/uL (4.50-11.00)
[2023-06-26] MEDS: METOPROLOL TARTRATE 50 MG TABLET PO ×2 (08:01→21:08)
[2023-06-26] MEDS: VANCOMYCIN 125 MG CAPSULE PO (08:01)
[2023-06-26] MEDS: DIGOXIN 250 MCG TABLET PO (08:02)
[2023-06-26] MEDS: AMLODIPINE 5 MG TABLET 2.5 MG PO (08:03)
[2023-06-26] MEDS: SODIUM CHLORIDE 0.9 % (FLUSH) 10 ML SYRINGE 5 ML IVF ×2 (08:18→21:16)
[2023-06-26] MEDS: SODIUM CHLORIDE 0.9 % (FLUSH) 10 ML SYRINGE IVF ×3 (08:18→13:53)
[2023-06-26] MEDS: POTASSIUM CHLORIDE 10 MEQ, LIDOCAINE 1 % 1 ML in 0.9 % SODIUM CHLORIDE 100 ml 100 ML 106 MEQ IVPB ×5 (08:19→15:42)
[2023-06-26 08:46] LABS: Slide Review Acceptable Review (Acceptable)
--- NOTE | 2023-06-26 10:26 | PM.IMPN1 ---
Progress Note: A&P Assessment and plan (1) Pneumonia: Problem details: - Multifocal, BC x2 negative - Ertapenem and vancomycin to cover for potential healthcare acquired pneumonia with plan to transition to oral antibiotics on discharge - DISCONTINUED -in setting of suspected drug related neutropenia, drug fever, hypokalemia - start azithromycin 500 mg p.o. x 4 days to complete 7 day course for HAP, as discussed with pharmacy - DuoNebs q.i.d., albuterol nebs q.4 hours p.r.n. - Mucinex b.i.d. - unable to tolerate swallowing this size pill Status: Acute (2) Non-small cell carcinoma of left lung, stage 3: Problem details: - Outpatient palliative chemo and radiation. Status: Chronic (3) COPD (chronic obstructive pulmonary disease): Problem details: - This does not appear to be contributing to dyspnea at present. Continue nebs, pulmonary support. Status: Chronic (4) Atrial fibrillation with RVR: Problem details: - appears to be new diagnosis. Holter monitor 07/2022 showing NSR and episodes of atrial tachycardia. Current EKG showing AFib - variable rate, increased tachycardia noted with outside stressors - continue metoprolol 50 mg b.i.d. (rate appropriately responsive), 25 mg q.4 hours p.r.n. - per [facility] 06/24, patient would benefit from anticoagulation for stroke prevention. R ICA aneurysm is not a contraindication to this. - discussed anticoagulation (no significant history of GI bleed per review), including risks and benefits. Patient and daughter would prefer to take this information back to her PCP prior to initiating anticoagulation. 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 Monitor. Status: Acute (7) Family discord: Problem details: - social science research assistant consulted. Patient stated several times that she feels safe at home and that she is not homebound. She is oriented x 3 and clear about her medical situation and needs. Status: Acute (8) Hypokalemia: Problem details: - potassium down trending, 2.8. Refused potassium tablets yesterday as unable to comfortably swallow. Refused effervescent potassium as it burned her throat - continue IV replacement, recheck potassium at 1400, continue supplement as necessary - consider oral/liquid K-Dur, mixed in Gatorade or other flavored clear drink, at time of discharge if still needed Status: Acute (9) Neutropenia: Problem details: -WBC downtrending, 1.84, suspected related to vancomycin -DC vancomycin, start oral azithromycin -monitor CBC Status: Acute (10) Drug induced fever: Problem details: -temp 100? overnight, suspected related to vancomycin, continue to monitor -DC vancomycin, start oral azithromycin Status: Acute Plan CODE: Full VTE PPX: Enoxaparin Disposition: Inpatient, possible discharge tomorrow, pending improvement/stabilization labs Subjective Date Seen: 06/26/23 Interval history: Patient is tearful and frustrated this morning, specifically with her family. Tells me her family does not believe what she or the nursing staff is telling them. Asks me to speak with her daughter, Saira, via cell phone again this morning. Patient is seen with daughter on cellphone again this morning. Reports continuing to improve and feeling stronger this morning. Remains on room air. Tolerating orals without nausea vomiting. Had a temperature of 100? overnight, which appears to be a drug fever in setting of IV vancomycin administration. Heart rate this morning 60-70s. Noted increased to 130s when nursing discussed family and plan of care with her. Patient reports she can feel her heart racing when she is upset with them. 06/25: Discussed questionable history of atrial fibrillation and GI bleed. Patient tells me she has been seen by Cardiology in the past. A Holter monitor completed in July 2022 shows PSVT with episodes of atrial tachycardia, without mention of atrial fibrillation. ECG during this admission shows atrial fibrillation. Patient reports episodes of palpitations during this hospital stay as well as in the past. As for GI bleed, there is a note in April 2021 of a single bloody stool which patient tells me was postoperatively. She also has a history of external hemorrhoids. In reviewing her previous colonoscopies, no bleeds noted. Discussed anticoagulation including risks and benefits. Patient tells me she would like to focus on her pneumonia at this time. Exam Narrative: Exam Narrative: PHYSICAL EXAM General: Mildly anxious, tearful at times, otherwise appropriate in no acute distress HEENT: Normocephalic, atraumatic, sclera white, EOMI, oral mucosa moist Cardiovascular: IRRR Pulmonary: Bilateral upper lobes clear without rhonchi or expiratory wheezes. Congested cough noted. Neurological: Alert, answering questions appropriately, cranial nerves intact, no focal findings Extremities: No gross joint deformity or swelling. AROMI Skin: Warm, dry. No rash Const: Vital Signs, click to edit/add: Vital Signs - 24 hr 06/25/23 11:00 06/25/23 15:00 06/25/23 15:00 Temperature 98.7 F Pulse Rate 126 H Pulse Rate [Apical ] 94 121 H Pulse Rate [Pulse Oximeter] Respiratory Rate 20 20 Blood Pressure [Ri ght Arm] 107/68 Pulse Oximetry 94 Oxygen Delivery Me thod Room Air 06/25/23 16:00 06/25/23 17:54 06/25/23 18:50 Temperature 100.0 F H 100.0 F H 100.0 F H Pulse Rate Pulse Rate [Apical ] 122 H Pulse Rate [Pulse Oximeter] Respiratory Rate 20 Blood Pressure [Ri ght Arm] 111/78 Pulse Oximetry 94 Oxygen Delivery Me thod Room Air 06/25/23 20:18 06/25/23 21:15 06/25/23 22:44 Temperature 98.5 F 98.2 F Pulse Rate 122 H Pulse Rate [Apical ] Pulse Rate [Pulse Oximeter] 126 H 116 H Respiratory Rate 20 20 Blood Pressure [Ri ght Arm] 82/62 L 100/71 Pulse Oximetry 91 90 Oxygen Delivery Ca thod Room Air Room Air 06/26/23 00:02 06/26/23 02:11 06/26/23 08:02 Temperature 98.7 F Pulse Rate 106 H 133 H Pulse Rate [Apical ] Pulse Rate [Pulse Oximeter] 113 H Respiratory Rate 16 Blood Pressure [Ri ght Arm] 124/91 H Pulse Oximetry 95 Oxygen Delivery Me thod Room Air 06/26/23 08:15 Temperature Pulse Rate Pulse Rate [Apical ] Pulse Rate [Pulse Oximeter] Respiratory Rate Blood Pressure [Ri ght Arm] Pulse Oximetry 93 Oxygen Delivery Me thod Labs Labs: Laboratory Results - last 24 hr 06/25/23 06/25/23 06/26/23 06:17 11:35 06:40 WBC 1.84 L* RBC 3.42 L Hgb 10.5 L Hct 31.2 L MCV 91 MCH 31 MCHC 34 Plt Count 199 Diff Slide Review Acceptable Review Sodium 136 Potassium 2.9 L* 2.8 L* Chloride 103 Carbon Dioxide 28 Anion Gap 5 L BUN 8 Creatinine 0.6 Estimated Creat Clear 35.99 Estimated GFR 95 Glucose 91 Calcium 8.1 L Magnesium 1.6 Lab Acknowledgement Test Added
[2023-06-26] MEDS: AZITHROMYCIN 250 MG TABLET 500 MG PO (11:09)
[2023-06-26] MEDS: OXYCODONE 1 MG/ML ORAL SOLN PO ×3 (13:21→21:07)
[2023-06-26] MEDS: IPRAT-ALBUT 0.5-2.5 MG/3 ML NEB 1 NEB IH ×2 (13:22→18:23)
[2023-06-26 14:22] LABS: Potassium* 3.6 mmol/L (3.6-5.1)
--- NOTE | 2023-06-26 14:29 | PC.NURSE ---
Lab note: Patient's K+ noted to be 3.6 per draw from port completed this afternoon. Dr. Jhaveri updated with latest lab value.
[2023-06-26] MEDS: ACETAMINOPHEN 325 MG TABLET 650 MG PO (15:10)
--- NOTE | 2023-06-26 15:26 | PC.NURSE ---
Patient requesting afternoon dose of IV K+ be mixed with lidocaine. Pharmacy updated and will deliver new supply per patient request. Deborah nurse updated.
--- NOTE | 2023-06-26 18:43 | PC.NURSE ---
End of Shift: Patient pleasant and cooperative. Patient vitally stable, lung diminished/crackles, BS WNL, Port SL. Patient rates pain at most 7/10, oxycodone given once. Patient independent in room. Patient urinating and tolerating regular diet.
[2023-06-26] MEDS: ROSUVASTATIN CALCIUM 10 MG TABLET 20 MG PO (21:08)
[2023-06-26] MEDS: ENOXAPARIN 40 MG/0.4 ML INJ SUBCUT (21:18)
[2023-06-26] MEDS: OLANZapine 5 MG TAB.RAPDIS PO (21:28)
[2023-06-27] MEDS: OXYCODONE 1 MG/ML ORAL SOLN PO (00:58)
[2023-06-27] MEDS: IPRAT-ALBUT 0.5-2.5 MG/3 ML NEB 1 NEB IH ×3 (01:06→13:02)
[2023-06-27 03:00] VITALS: BP 105/67; PULSE 88; RESP 18; TEMP 36.6; O2SAT 94
[2023-06-27] MEDS: HEPARIN 500 UNIT/5 ML SYRINGE IVF ×3 (03:12→14:05)
--- NOTE | 2023-06-27 05:28 | PC.NURSE ---
Shift note: Tele was in A.fib with normal ventricular rate at the start of the shift. Converted to Dysrhythmia at 0430 this morning. Pt was alert and oriented, remained calm and pleasant. Pt is independent in room. Pain level has been rated between 2 and 8. Only requested for 1x oxycodone at 2100. Port patent and lab drawn through port this morning. Pt said I am feeling better today than yesterday but still appears weak. Other vital signs are stable.
[2023-06-27 05:30] VITALS: PULSE 92
[2023-06-27 06:59] LABS: Basophils Percent Auto 0.5 % (0.0-3.0); Chloride* 104 mmol/L (96-114); Eosinophils Percent Auto 0.9 % (0.0-7.0); Hematocrit 25.2 % (33.0-51.0); Hemoglobin* 8.4 gm/dL (12.0-16.0); Immature Granulocytes Pct Auto 0.5 %; Lymphocytes Percent Auto 6.1 % (20-44); Mean Corpuscular HGB Conc 33 gm/dL (32-36); Mean Corpuscular Hemoglobin 31 pg (26-34); Mean Corpuscular Volume 93 fL (80-100); Monocytes Percent Auto 10.4 % (0.0-11.0); Neutrophils Percent Auto 81.6 % (42.0-72.0); Platelet Count* 192 K/uL (140-440); Potassium* 3.2 mmol/L (3.6-5.1); RDW Coefficient of Variation % 14.4 % (11.5-15.5); Red Blood Count 2.71 m/uL (4.00-5.20); Sodium* 136 mmol/L (135-149); White Blood Count* 2.12 K/uL (4.50-11.00)
[2023-06-27 07:00] VITALS: BP 113/67; PULSE 103; PULSE 86; RESP 18; TEMP 36.6; O2SAT 90
[2023-06-27 07:02] LABS: Anion Gap 5 mEq/L (7-15); Carbon Dioxide* 27 mmol/L (20-32); Creatinine* 0.6 mg/dL (0.5-1.5); Est. Creatinine Clearance* 35.99; Estimated Glomerular Filt Rate 95 ml/min
[2023-06-27 07:03] LABS: Blood Urea Nitrogen* 9 mg/dL (7-30); Calcium* 8.1 mg/dL (8.4-10.6); Glucose* 78 mg/dL (60-115)
[2023-06-27 07:14] LABS: Slide Review Reflex No
[2023-06-27 08:12] VITALS: PULSE 96
[2023-06-27] MEDS: DIGOXIN 250 MCG TABLET PO (08:12)
[2023-06-27] MEDS: AMLODIPINE 5 MG TABLET 2.5 MG PO (08:14)
[2023-06-27] MEDS: METOPROLOL TARTRATE 50 MG TABLET PO (08:15)
[2023-06-27] MEDS: VANCOMYCIN 125 MG CAPSULE PO (08:15)
[2023-06-27 10:21] LABS: Hemoglobin* 8.9 gm/dL (12.0-16.0)
[2023-06-27] MEDS: AZITHROMYCIN 250 MG TABLET 500 MG PO (11:32)
[2023-06-27] MEDS: POTASSIUM CHLORIDE 10 MEQ/100 ML PIGGYBACK 100 MEQ IVPB ×2 (11:39→13:02)
[2023-06-27] MEDS: SODIUM CHLORIDE 0.9 % (FLUSH) 10 ML SYRINGE IVF ×2 (12:58→14:05)
[2023-06-27 13:00] VITALS: BP 99/55; PULSE 72; RESP 18; TEMP 37; O2SAT 93
--- NOTE | 2023-06-27 13:00 | PM.DS1 ---
DS: Providers Provider Date Seen: 06/27/23 Date of admission: 06/24/23 03:42 Primary care physician: Pao Barnes PA-C Admitting Clinician: Guillaume Ortega MD Consults: 06/24/23 03:12 Consult to Automotive Mechanic [CONS] Routine Comment: Reason for Consult:: Abuse, Neglect Potential 06/24/23 10:41 Consult to Respiratory Therapy [CONS] Routine Comment: Reason(s) for RT Consult:: Consult Attending Physician on discharge: KATIE Torre PA-C [place] [facility] Date of Discharge: 06/27/23 DS: Diagnosis Discharge Diagnosis (1) Pneumonia: Status: Acute Problem details: - Multifocal pneumonia empirically treated as healthcare acquired source initially with IV ertapenem and vancomycin. These were discontinued as suspected drug related neutropenia, hypokalemia, and drug induced fever were noted, in setting of immunocompromised state related to active cancer treatment with chemotherapy and radiation. After reviewing her multiple antibiotic allergies with pharmacy, decision was made to transition to oral azithromycin to complete a 7 day course of antibiotic therapy. - Scheduled DuoNebs q.i.d., albuterol nebs q.4 hours p.r.n., and incentive spirometry were utilized. Patient noted to continue to clinically improve, remaining afebrile and on room air, with improving strength on day of discharge. (2) Atrial fibrillation with RVR: Status: Acute Problem details: - appears to be a new diagnosis. Holter monitor completed in 07/2022 showing NSR and episodes of atrial tachycardia. EKG during this hospital stay showing AFib. ECHO 06/24/23 shows normal global systolic function, EF 60%, normal global systolic RV function, no stenosis, no regurgitation. Rhythm noted is sinus with frequent PACs/consecutive PACs versus brief atrial fibrillation. - noted to have a variable rate with increased tachycardia noted with outside stressors - home metoprolol extended dose was changed to short-acting metoprolol 50 mg b.i.d. and was noted to be appropriately rate responsive. Digoxin 250 mcg daily was also initiated and continued at time of discharge. She was continued on amlodipine 2.5 mg daily. Remained vitally stable. - per [facility] curbside consult on 06/24/23, patient would benefit from anticoagulation for stroke prevention as R ICA aneurysm is not a contraindication to this. - we discussed anticoagulation including risks and benefits (no significant finding of history of GI bleed per chart review other than single episode of bloody diarrhea postoperatively, external hemorrhoids). Patient and daughter, Saira, verbalized preference to take this information back to her PCP prior to initiating anticoagulation. On day of discharge, reminded to follow up with PCP and/or Cardiology regarding initiation of anticoagulation. During her hospital stay, she was otherwise maintained on Lovenox. (3) Hypokalemia: Status: Acute Problem details: - potassium noted to be downtrending, 2.8. Improved with IV replacement. Discharged with oral solution (comfort preference), to be used twice daily x4 days - follow-up with PCP for recheck (4) Neutropenia: Status: Acute Problem details: -WBC noted to downtrend, eventually to 1.84. IV antibiotics were discontinued, WBC noted to improve. Follow-up with PCP to monitor. DS: Summary Hospital Course Hospital Course: [age] year old female past medical history significant for cerebral aneurysm, PVD, COPD, C diff colitis on chronic vancomycin, non-small cell carcinoma was admitted to the medical floor for pneumonia, suspected healthcare acquired . Course of care and details as noted above. Remainder of chronic medical comorbidities were monitored and managed with home medications. Status at Discharge Overall status at discharge: patient is back to baseline Time Spent with Patient Time attestation: Total time spent providing and/or coordinating discharge services: Time spent: Greater than 30 minutes Exam Narrative: Exam Narrative: PHYSICAL EXAM General: Very pleasant, conversant, NAD HEENT: Normocephalic, atraumatic, sclera white, EOMI, oral mucosa moist Cardiovascular: IRRR without tachycardia Pulmonary: Mildly diminished without rhonchi rales or wheezes. No dyspnea Neurological: Alert, answering questions appropriately, cranial nerves intact, no focal findings Extremities: No gross joint deformity or swelling. AROMI Skin: Warm, dry. Const: Vital Signs, click to edit/add: Vital Signs - 24 hr 06/26/23 15:41 06/26/23 15:41 06/26/23 16:30 Temperature 99.5 F Pulse Rate 82 Pulse Rate [Pulse Oximeter] 68 68 Respiratory Rate 20 20 Blood Pressure [Ri ght Arm] 115/80 Pulse Oximetry 91 Oxygen Delivery Me thod Room Air 06/26/23 19:00 06/26/23 23:00 06/26/23 23:00 Temperature 97.8 F Pulse Rate 85 Pulse Rate [Pulse Oximeter] 75 82 Respiratory Rate 18 18 Blood Pressure [Ri ght Arm] 103/58 L Pulse Oximetry 94 Oxygen Delivery Me thod Room Air 06/26/23 23:00 06/27/23 03:00 06/27/23 05:30 Temperature 98.2 F 97.9 F Pulse Rate 92 Pulse Rate [Pulse Oximeter] 82 88 Respiratory Rate 18 18 Blood Pressure [Ri ght Arm] 90/60 105/67 Pulse Oximetry 92 94 Oxygen Delivery Me thod Room Air Room Air 06/27/23 07:00 06/27/23 07:00 06/27/23 07:00 Temperature 97.9 F Pulse Rate 103 H Pulse Rate [Pulse Oximeter] 86 Respiratory Rate 18 18 Blood Pressure [Ri ght Arm] 113/67 Pulse Oximetry 90 Oxygen Delivery Me thod Room Air 06/27/23 08:12 Temperature Pulse Rate 96 Pulse Rate [Pulse Oximeter] Respiratory Rate Blood Pressure [Ri ght Arm] Pulse Oximetry Oxygen Delivery Me thod DS: Data Data Completed and Pending Labs on day of discharge: Labs from last 24 hours 06/27/23 06/27/23 06/26/23 Unknown 10:12 14:00 WBC 2.12 L RBC 2.71 L Hgb 8.4 L 8.9 L Hct 25.2 L MCV 93 MCH 31 MCHC 33 RDW Coeff of Álvaro 14.4 Plt Count 192 Neut % (Auto) 81.6 H Lymph % (Auto) 6.1 L [place] % (Auto) 10.4 Eos % (Auto) 0.9 Baso % (Auto) 0.5 Neut # (Auto) 1.70 Lymph # (Auto) 0.10 L [place] # (Auto) 0.20 Eos # (Auto) 0.00 Baso # (Auto) 0.00 Abs Immat Gran (auto) 0.00 Imm/Tot Granulo (auto) 0.5 Sodium 136 Potassium 3.2 L 3.6 Chloride 104 Carbon Dioxide 27 Anion Gap 5 L BUN 9 Creatinine 0.6 Estimated Creat Clear 35.99 Estimated GFR 95 Glucose 78 Calcium 8.1 L Preliminary micro results at discharge 06/23/23 23:05 Blood Culture - Preliminary Blood NO GROWTH AFTER 72 HOURS 06/23/23 21:58 Blood Culture - Preliminary Blood NO GROWTH AFTER 72 HOURS Discharge Plan Discharge Disposition: Home, Self-Care Date of Admission: 06/24/23 03:42 Attending Provider on Discharge: Ashley Huddleston Primary Care Provider: Pao Barnes Condition: Stable Anticipated Discharge Date/Time: 06/27/23 12:08 Discharge Medications: New digoxin 250 mcg (0.25 mg) Tablet 250 mcg PO DAILY Qty: 30 0RF metoprolol tartrate 50 mg Tablet 50 mg PO BID Qty: 60 0RF azithromycin 500 mg tablet 500 mg PO DAILY 2 Days Qty: 2 0RF Rx Instructions: start on day 2 of therapy potassium chloride 20 mEq/15 mL liquid 20 meq PO BID 4 Days Qty: 120 0RF Continued vancomycin 125 mg capsule 125 mg PO DAILY Patient Comments: TAKE ONE CAPSULE BY MOUTH EVERY DAY rosuvastatin 20 mg tablet 20 mg PO DAILY Patient Comments: TAKE ONE TABLET BY MOUTH EVERY EVENING WITH A MEAL lidocaine HCl [Lidocaine Viscous] 2 % solution PO ANTACID/DIPHEN/LIDO (MAGIC MOUTHWASH) 5 mL suspension 5 ml buccal Q6H PRN sucralfate 100 mg/mL suspension 10 ml PO QID olanzapine 5 mg tablet 5 mg PO QPM oxycodone 5 mg/5 mL solution 10 mg PO Q4-6H PRN (Reason: pain) prochlorperazine maleate 10 mg tablet 10 mg PO Q6H PRN (Reason: nausea) oxycodone-acetaminophen 5-325 mg tablet 1 tab PO Q6H PRN lorazepam 0.5 mg tablet 0.5 mg PO BID amlodipine 2.5 mg tablet 2.5 mg PO DAILY Discontinued metoprolol succinate 100 mg tablet extended release 24 hr 100 mg PO DAILY Discharge Orders: Discharge Order (Routine); Ordered 06/27/23 Ordered By: Ashley Huddleston Patient Education: Metoprolol (By mouth), Digoxin (By mouth), Potassium Chloride (By mouth) (K-Dur, K-Ana, K-Tab, Luisito Mur), Azithromycin (By mouth), A-fib (Atrial Fibrillation) (DC), Hypokalemia (DC), Bacterial Pneumonia (DC) Additional Instructions: Finish your oral antibiotic (azithromycin) for pneumonia. It is important to stay hydrated and well rested. Your potassium was low during your hospital stay. You should continue to take oral potassium twice daily for the next 4 days. You may mix the solution with a clear liquid of your choice. Your PCP will recheck your potassium level during your follow-up visit. You were found to have an arrhythmia called atrial fibrillation. Continue to take amlodipine and metoprolol at the new dose. You have been started on digoxin as well. Your rate appropriately improved by day of discharge. It is recommended that you are seen in the outpatient Cardiology clinic for a consult. As discussed during your hospital stay, using an anticoagulant such as warfarin/Coumadin or a DOAC will help to reduce your risk for stroke and heart attack. You will need to follow-up with your PCP and/or Cardiology to start this medication as we discussed. Your hemoglobin and your white blood cell count were noted to drop during your hospital stay. You even had a brief drug-induced fever. This can occur in the setting of your active cancer treatment in addition to the IV antibiotics and IV fluids you were receiving. On the day of discharge, these numbers were improving. Activity Level: No Restrictions Discharge Diet: Regular Follow Up Appointments: [facility] [Provider Group] - 07/25/23 (Please call [facility], new onset Atrial Fibrillation, follow up appointment 2-3 weeks) Pao Barnes PA-C [Primary Care Provider] - 07/04/23 12:30 pm ([facility] for follow up and Recheck CBC and K+. Call your Oncology team to schedule your next appointment. You will need an outpatient Cardiology consult as well.) Forms: [employer] Info Instructions
--- NOTE | 2023-06-27 15:35 | PC.NURSE ---
Patient independent with ambulating and toileting. VSS. Patient ate regular diet. Patient had a brief episode of discomfort in chest after swallowing a bite of breakfast. Discharge orders received. Port-a-cath was heparinized and deaccessed. Patient discharged at 1425. Staff wheeled patient out to main entrance in wheelchair. Patient left with family transport.
== END 2023-06-27 14:25 | disposition home or self-care (01) | DRG 194 ==
LOC: ED 06-24 02:24 → MEDSURG 06-24 02:28
PROVIDERS: Family Medicine; Physician Assistant; Admitting Provider Emergency Medicine; Emergency Provider Emergency Medicine; PCP Physician Assistant Medical; Visit Provider Internal Medicine
DX: J18.9 Pneumonia, unspecified organism (principal); A04.72 Enterocolitis due to Clostridium difficile, not specified as recurrent; C34.92 Malignant neoplasm of unspecified part of left bronchus or lung; I48.20 Chronic atrial fibrillation, unspecified; D84.821 Immunodeficiency due to drugs; D84.822 Immunodeficiency due to external causes; Y95 Nosocomial condition; Z79.2 Long term (current) use of antibiotics; J44.9 Chronic obstructive pulmonary disease, unspecified; I48.0 Paroxysmal atrial fibrillation; I73.9 Peripheral vascular disease, unspecified; I67.1 Cerebral aneurysm, nonruptured; D64.9 Anemia, unspecified; L59.8 Other specified disorders of the skin and subcutaneous tissue related to radiation; L27.0 Generalized skin eruption due to drugs and medicaments taken internally; T45.1X5A Adverse effect of antineoplastic and immunosuppressive drugs, initial encounter; Z63.8 Other specified problems related to primary support group; G89.3 Neoplasm related pain (acute) (chronic); R07.9 Chest pain, unspecified; E87.6 Hypokalemia; D70.2 Other drug-induced agranulocytosis; T36.8X5A Adverse effect of other systemic antibiotics, initial encounter; R50.2 Drug induced fever; Z79.60 Long term (current) use of unspecified immunomodulators and immunosuppressants; W88.8XXA Exposure to other ionizing radiation, initial encounter
CPT/HCPCS: 36415; 71046; 71275; 80048; 80053; 81001; 82270; 82803; 83605; 83735; 83880; 84132; 84145; 84484; 85018; 85025; 85027; 85610; 85730; 86140; 87040; 87631; 93005; 93306; 94640; 94664; 94761; 99284; 99285; G0378; A9270; J0780; J1335; J1642; J1650; J3010; J3370; J3480; J7030; J7050; J7120; Q9967

== ENCOUNTER 2023-07-05 16:38 | Inpatient (IN) | payer MEDICARE, OTHER, SELFPAY ==
[2023-07-05] VITALS (9 sets, daily range): BP systolic 122–152; BP diastolic 65–80; PULSE 41–82; RESP 18–22; TEMP 36.2–36.6; O2SAT 88–99; BMI 16.5; BMI 17.2
--- NOTE | 2023-07-05 16:43 | CRLHL7_ITS ---
For Patients: As a result of the Century Cures Act, medical imaging exams and procedure reports are released immediately into your electronic medical record. You may view this report before your referring provider. If you have questions, please contact your health care provider. INDICATION: Shortness of breath, cough. TECHNIQUE: Chest 1 views. COMPARISON: None. FINDINGS: Cardiovascular and mediastinum: Heart size and vasculature are normal in caliber and appearance. Right IJ catheter with tip in the superior cavoatrial junction. Lungs and pleural spaces: Pulmonary emphysema. Right lower lobe consolidation. Trace right pleural effusion. No pneumothorax. Bones and soft tissues: No significant findings. IMPRESSION: Right lower lobe consolidation likely pneumonia, possibly from aspiration given distribution. Dictated by Shad Swain MD @ 07/05/2023 6:33:56 PM (Electronically Signed)
--- NOTE | 2023-07-05 16:57 | ED_ITS ---
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 She has had nausea and vomiting today and has not had much p.o. intake. When paramedics arrived her house her O2 sat was in the 84% range on room air, she does not have home oxygen. She did have pneumonia and was hospitalized for that as well she has atrial fibrillation with a history of rapid trich a rate. She denies fever, does report she has had nausea, she has received some Zofran EN route and no IV fluid. She was brought in by EMS. She had her radiation here at [facility] and received chemotherapy in [place]. Related Data Home Medications Medication Instructions Recorded Confirmed rosuvastatin 20 mg tablet 20 mg PO DAILY 10/15/22 07/04/23 vancomycin 125 mg capsule 125 mg PO DAILY 10/15/22 07/04/23 ANTACID/DIPHEN/LIDO (MAGIC 5 ml buccal Q6H PRN 06/24/23 07/04/23 MOUTHWASH) amlodipine 2.5 mg tablet 2.5 mg PO DAILY 06/24/23 07/04/23 lidocaine HCl 2 % mucosal solution PO 06/24/23 07/04/23 (Lidocaine Viscous) lorazepam 0.5 mg tablet 0.5 mg PO BID 06/24/23 07/04/23 olanzapine 5 mg tablet 5 mg PO QPM 06/24/23 07/04/23 oxycodone 5 mg/5 mL oral solution 10 mg PO Q4-6H PRN pain 06/24/23 07/04/23 oxycodone-acetaminophen 5 mg-325 1 tab PO Q6H PRN 06/24/23 07/04/23 mg tablet prochlorperazine maleate 10 mg 10 mg PO Q6H PRN nausea 06/24/23 07/04/23 tablet Previous Rx's Medication Instructions Recorded digoxin 250 mcg (0.25 mg) tablet 250 mcg PO DAILY #30 tabs 06/27/23 metoprolol tartrate 50 mg tablet 50 mg PO BID #60 tabs 06/27/23 Allergies Allergy/AdvReac Type Severity Reaction Status Date / Time cefuroxime Allergy Severe Anaphylaxis Verified 07/05/23 16:48 codeine Allergy Severe Hypotension Verified 07/04/23 12:33 gatifloxacin [From Tequin] Allergy Severe Anaphylaxis Verified 07/04/23 12:33 hydrocodone [From Vicodin] Allergy Severe Hypertensio Verified 07/04/23 12:33 n iron [From Venofer] Allergy Severe Anaphylaxis Verified 07/05/23 16:48 meperidine [From Demerol] Allergy Severe Anaphylaxis Verified 07/04/23 12:33 morphine Allergy Severe SOB Verified 07/04/23 12:33 Penicillins Allergy Severe Anaphylaxis Verified 07/04/23 12:33 Quinolones Allergy Severe Anaphylaxis Verified 07/04/23 12:33 acetaminophen Allergy Unknown Unknown Verified 07/04/23 12:33 [From Panlor (hydrocodone-acetamin)] ampicillin [From Unasyn] Allergy Unknown Nausea Verified 07/04/23 12:33 diphenhydramine Allergy Unknown Unknown Verified 07/04/23 12:33 doxycycline Allergy Unknown other Verified 07/04/23 12:33 magnesium citrate Allergy Unknown Diarrhea Verified 07/04/23 12:33 metronidazole [From Flagyl] Allergy Unknown Flushing Verified 07/04/23 12:33 sulbactam [From Unasyn] Allergy Unknown Nausea Verified 07/04/23 12:33 sulfamethoxazole Allergy Unknown Nausea Verified 07/04/23 12:33 [From Sulfamethoxazole-Trimethoprim] trimethoprim Allergy Unknown Nausea Verified 07/04/23 12:33 [From Sulfamethoxazole-Trimethoprim] Review of Systems Status of ROS: Reports: 6 or more systems reviewed and unremarkable except as noted in History and below [facility] Medical History Rash ?R21 - Rash and other nonspecific skin eruption (ICD-10) Radiation dermatitis ?L58.9 - Radiodermatitis, unspecified (ICD-10) Cerebral aneurysm ?I67.1 - Cerebral aneurysm, nonruptured (ICD-10) PVD (peripheral vascular disease) ?I73.9 - Peripheral vascular disease, unspecified (ICD-10) COPD (chronic obstructive pulmonary disease) ?J44.9 - Chronic obstructive pulmonary disease, unspecified (ICD-10) C. difficile colitis ?A04.72 - Enterocolitis due to Clostridium difficile, not specified as recurrent (ICD-10) Intermittent atrial fibrillation ?I48.0 - Paroxysmal atrial fibrillation (ICD-10) Non-small cell carcinoma of left lung, stage 3 ?C34.92 - Malignant neoplasm of unspecified part of left bronchus or lung (ICD-10) Surgical History S/P colectomy ?Z90.49 - Acquired absence of other specified parts of digestive tract (ICD- 10) Social History What is your current living situation?: I presently have a place to live Problems where you live: no known problems Problems where you live details: na In the past 12 months, utilities in danger of being shut off: no In past 12 months, lack of transportation kept you from medical appts, meetings, work, or getting things needed for daily living: no In the past 12 mos, have been you worried that your food would run out before you had money to buy more?: never true In the past 12 mos, the food you bought just didn't last and you didn't have money to buy more?: never true Smoking Status: Former smoker Do you use any of these nicotine containing products: None Second hand tobacco smoke exposure: Yes How often do you have a drink containing alcohol: never How many standard drinks containing alcohol do you have on a typical day: 3 or 4 How often do you have six or more drinks on one occasion: Never AUDIT-C Alcohol total score: 1 Non-prescribed substance use: denies use How often does anyone, including family, friends and others, physically hurt you : never How often does anyone, including family, friends and others, insult or talk down to you: fairly often How often does anyone, including family, friends and others, threaten you with harm: never How often does anyone, including family, friends and others, scream or curse at you: sometimes service: No Exam Narrative: Exam Narrative: Objective: Patient's telemetry this shows atrial fibrillation and intermittent rate between 40 and 80. O2 sat is 91% but on the transition from oxygen from the paramedics. HEENT is unremarkable neck is supple Chest diminished air exchange bilaterally no obvious rales or wheezing Heart irregular regular without marked ectopy, 2/6 systolic murmur Abdomen benign Extremities are no edema neurologic nonfocal Good peripheral perfusion noted Mental status patient is awake alert in no distress. Feels better with oxygen her O2 sat is up to 95% with 2 L nasal cannula. Const: Vital Signs, click to edit/add: Vital Signs - 24 hr 07/05/23 16:43 07/05/23 16:53 07/05/23 17:34 Temperature 97.2 F L Pulse Rate 41 L Respiratory Rate 22 Blood Pressure [Ri ght Upper Arm] 134/76 Pulse Oximetry 98 89 97 Oxygen Delivery Me thod Nasal Cannula Room Air Oxygen Flow Rate 2 07/05/23 17:45 07/05/23 18:00 07/05/23 18:15 Temperature Pulse Rate 78 50 L 81 Respiratory Rate Blood Pressure [Ri ght Upper Arm] Pulse Oximetry 99 90 97 Oxygen Delivery Me thod Oxygen Flow Rate 07/05/23 18:30 Temperature Pulse Rate 77 Respiratory Rate Blood Pressure [Ri ght Upper Arm] Pulse Oximetry 97 Oxygen Delivery Me thod Oxygen Flow Rate Course Vital Signs Vital signs: Initial Vital Signs Pulse Oximetry 98 07/05/23 16:43 Oxygen Delivery Method Nasal Cannula 07/05/23 16:43 Oxygen Flow Rate 2 07/05/23 16:43 Vital Signs Pulse Oximetry 98 07/05/23 16:43 Oxygen Delivery Method Nasal Cannula 07/05/23 16:43 Oxygen Flow Rate 2 07/05/23 16:43 Temperature 97.8 F 07/05/23 19:02 Pulse Rate 79 07/05/23 19:02 Respiratory Rate 20 07/05/23 19:02 Blood Pressure 152/80 H 07/05/23 19:02 Pulse Oximetry 96 07/05/23 19:02 Oxygen Delivery Method Nasal Cannula 07/05/23 19:02 Oxygen Flow Rate 2 07/05/23 19:02 Medical Decision Making [facility] Narrative Medical decision making narrative: 73-year-old white female with stage III small cell carcinoma, status post chemotherapy and radiation treatment. With nausea vomiting poor p.o. intake. Patient has had recent pneumonia. Will check an x-ray, will check lab studies. Patient likely will need observation with oxygen, IV fluid for dehydration and hypoxia. Will check her electrolytes and CBC, do a blood culture as well will check COVID/influenza/RSV. Will notify hospitalist. Patient is also complaining shortness of breath but that is improved with oxygen. Will check her chest x-ray and lab studies as above. Addendum 6:36 p.m. radiologist felt there possibly is a right lower lobe consolidation which could be pneumonia, it appears that she had right lower lobe consolidation in the past. And she did have recent pneumonia treated. Her creatinine and other labs done thus far have been reassuring, white count is normal, hemoglobin normal, CRP is elevated at 16.9 in the setting of small cell carcinoma and recent pneumonia. Will admit to the hospitalist for further definitive care. Lab Data Labs: Lab Results 07/05/23 07/05/23 Range/Units 17:30 18:36 WBC 6.78 (4.50-11.00) K/uL RBC 4.52 (4.00-5.20) m/uL Hgb 13.9 (12.0-16.0) gm/dL Hct 41.9 (33.0-51.0) % MCV 93 (80-100) fL MCH 31 (26-34) pg MCHC 33 (32-36) gm/dL RDW Coeff of Álvaro 13.0 (11.5-15.5) % Plt Count 166 (140-440) K/uL Neut % (Auto) 60.7 (42.0-72.0) % Lymph % (Auto) 26.3 (20-44) % Hardeman % (Auto) 9.1 (0.0-11.0) % Eos % (Auto) 3.1 (0.0-7.0) % Baso % (Auto) 0.4 (0.0-3.0) % Neut # (Auto) 4.11 (1.7-7.0) K/uL Lymph # (Auto) 1.78 (0.90-2.90) K/uL Hardeman # (Auto) 0.60 (0.00-0.90) K/UL Eos # (Auto) 0.21 (0.00-0.50) K/uL Baso # (Auto) 0.03 (0.00-0.30) K/uL Abs Immat Gran (auto) 0.03 (0.00-0.30) K/uL Imm/Tot Granulo (auto) 0.4 % Sodium 135 (135-149) mmol/L Potassium 3.4 L (3.6-5.1) mmol/L Chloride 96 (96-114) mmol/L Carbon Dioxide 28 (20-32) mmol/L Anion Gap 11 (7-15) mEq/L BUN 11 (7-30) mg/dL Creatinine 0.6 (0.5-1.5) mg/dL Estimated Creat Clear 34.44 Estimated GFR 95 ml/min Glucose 157 H (60-115) mg/dL Calcium 8.8 (8.4-10.6) mg/dL Total Bilirubin 1.0 (0.1-1.5) mg/dL Direct Bilirubin 0.0 (0.0-0.5) mg/dL AST 21 (12-35) U/L ALT 14 (4-35) U/L Alkaline Phosphatase 67 (40-150) U/L Troponin I < 0.01 L (0.01-0.04) ng/mL C-Reactive Protein 16.9 H (0.5-1.0) mg/dL NT-Pro-B Natriuret Pep 836 pg/mL Total Protein 6.1 (6.0-8.3) g/dL Albumin 3.2 L (3.3-5.0) g/dL Procalcitonin 0.11 (<0.50) ng/mL Lab Acknowledgement Test Added Discharge Plan Discharge Clinical Impression: Increased nausea and vomiting, Small cell carcinoma of lung Patient Disposition: Admitted As Observation Condition: Improved
[2023-07-05] MEDS: 0.9 % SODIUM CHLORIDE 500 ML 500 ML IV (17:38)
[2023-07-05 17:57] LABS: Albumin* 3.2 g/dL (3.3-5.0); Chloride* 96 mmol/L (96-114)
[2023-07-05 17:58] LABS: Potassium* 3.4 mmol/L (3.6-5.1); Sodium* 135 mmol/L (135-149)
[2023-07-05] MEDS: fentaNYL 100 MCG/2 ML inj 50 MCG IVP (17:59)
[2023-07-05 18:00] LABS: Creatinine* 0.6 mg/dL (0.5-1.5); Est. Creatinine Clearance* 34.44; Estimated Glomerular Filt Rate 95 ml/min
[2023-07-05 18:01] LABS: Alanine Aminotransferase* 14 U/L (4-35); Alkaline Phosphatase* 67 U/L (40-150); Anion Gap 11 mEq/L (7-15); Aspartate Amino Transferase* 21 U/L (12-35); Blood Urea Nitrogen* 11 mg/dL (7-30); Calcium* 8.8 mg/dL (8.4-10.6); Carbon Dioxide* 28 mmol/L (20-32); Glucose* 157 mg/dL (60-115); Total Protein* 6.1 g/dL (6.0-8.3)
--- NOTE | 2023-07-05 18:10 | P.IMHP_ITS ---
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 The patient had recent hospitalization and treated for pna with vancomycin, ertapenem, and azithromycin. She developed drug induced fever and neutropenia and thus ertapenem/vanco de-escalated with azithromycin. She was seen in clinic yesterday for post hospital follow up. She continued to endorse fatigue and returned to ED. In the ED the patient was afebrile, normal WBC, procal 0.11. CXR with RLL consolidation. She required 2 liters of supplemental oxygen at 96% (hx of COPD). She denied chest pain and pressure. She was admitted for further evaluation. Right lower lobe consolidation likely pneumonia, possibly from aspiration given distribution. Review of Systems Status of ROS: Reports: 10 or more systems reviewed and unremarkable except as noted in History and below [facility] Medical History Rash ?R21 - Rash and other nonspecific skin eruption (ICD-10) Radiation dermatitis ?L58.9 - Radiodermatitis, unspecified (ICD-10) Cerebral aneurysm ?I67.1 - Cerebral aneurysm, nonruptured (ICD-10) PVD (peripheral vascular disease) ?I73.9 - Peripheral vascular disease, unspecified (ICD-10) COPD (chronic obstructive pulmonary disease) ?J44.9 - Chronic obstructive pulmonary disease, unspecified (ICD-10) C. difficile colitis ?A04.72 - Enterocolitis due to Clostridium difficile, not specified as recurrent (ICD-10) Intermittent atrial fibrillation ?I48.0 - Paroxysmal atrial fibrillation (ICD-10) Non-small cell carcinoma of left lung, stage 3 ?C34.92 - Malignant neoplasm of unspecified part of left bronchus or lung (ICD-10) Surgical History S/P colectomy ?Z90.49 - Acquired absence of other specified parts of digestive tract (ICD- 10) Social History What is your current living situation?: I presently have a place to live Problems where you live: no known problems Problems where you live details: na In the past 12 months, utilities in danger of being shut off: no In past 12 months, lack of transportation kept you from medical appts, meetings, work, or getting things needed for daily living: no In the past 12 mos, have been you worried that your food would run out before you had money to buy more?: never true In the past 12 mos, the food you bought just didn't last and you didn't have money to buy more?: never true Smoking Status: Former smoker Do you use any of these nicotine containing products: None Second hand tobacco smoke exposure: Yes How often do you have a drink containing alcohol: never How many standard drinks containing alcohol do you have on a typical day: 3 or 4 How often do you have six or more drinks on one occasion: Never AUDIT-C Alcohol total score: 1 Non-prescribed substance use: denies use How often does anyone, including family, friends and others, physically hurt you : never How often does anyone, including family, friends and others, insult or talk down to you: fairly often How often does anyone, including family, friends and others, threaten you with harm: never How often does anyone, including family, friends and others, scream or curse at you: sometimes service: No Meds Home Medications and Allergies Home Medications Medication Instructions Recorded Confirmed Type rosuvastatin 20 mg tablet 20 mg PO DAILY 10/15/22 07/04/23 History vancomycin 125 mg capsule 125 mg PO DAILY 10/15/22 07/04/23 History ANTACID/DIPHEN/LIDO (MAGIC 5 ml buccal Q6H PRN 06/24/23 07/04/23 History MOUTHWASH) amlodipine 2.5 mg tablet 2.5 mg PO DAILY 06/24/23 07/04/23 History lidocaine HCl 2 % mucosal solution PO 06/24/23 07/04/23 History (Lidocaine Viscous) lorazepam 0.5 mg tablet 0.5 mg PO BID 06/24/23 07/04/23 History olanzapine 5 mg tablet 5 mg PO QPM 06/24/23 07/04/23 History oxycodone 5 mg/5 mL oral solution 10 mg PO Q4-6H PRN pain 06/24/23 07/04/23 History oxycodone-acetaminophen 5 mg-325 1 tab PO Q6H PRN 06/24/23 07/04/23 History mg tablet prochlorperazine maleate 10 mg 10 mg PO Q6H PRN nausea 06/24/23 07/04/23 History tablet Allergies Allergy/AdvReac Type Severity Reaction Status Date / Time cefuroxime Allergy Severe Anaphylaxis Verified 07/05/23 16:48 codeine Allergy Severe Hypotension Verified 07/04/23 12:33 gatifloxacin [From Tequin] Allergy Severe Anaphylaxis Verified 07/04/23 12:33 hydrocodone [From Vicodin] Allergy Severe Hypertensio Verified 07/04/23 12:33 n iron [From Venofer] Allergy Severe Anaphylaxis Verified 07/05/23 16:48 meperidine [From Demerol] Allergy Severe Anaphylaxis Verified 07/04/23 12:33 morphine Allergy Severe SOB Verified 07/04/23 12:33 Penicillins Allergy Severe Anaphylaxis Verified 07/04/23 12:33 Quinolones Allergy Severe Anaphylaxis Verified 07/04/23 12:33 acetaminophen Allergy Unknown Unknown Verified 07/04/23 12:33 [From Panlor (hydrocodone-acetamin)] ampicillin [From Unasyn] Allergy Unknown Nausea Verified 07/04/23 12:33 diphenhydramine Allergy Unknown Unknown Verified 07/04/23 12:33 doxycycline Allergy Unknown other Verified 07/04/23 12:33 magnesium citrate Allergy Unknown Diarrhea Verified 07/04/23 12:33 metronidazole [From Flagyl] Allergy Unknown Flushing Verified 07/04/23 12:33 sulbactam [From Unasyn] Allergy Unknown Nausea Verified 07/04/23 12:33 sulfamethoxazole Allergy Unknown Nausea Verified 07/04/23 12:33 [From Sulfamethoxazole-Trimethoprim] trimethoprim Allergy Unknown Nausea Verified 07/04/23 12:33 [From Sulfamethoxazole-Trimethoprim] Exam Narrative: Exam Narrative: Gen: no acute distress HEENT: NCAT EOMI mmm Neck: Supple CV: bradycardic normal s1 s2 Lungs: end expiratory wheezing; coarse breath sounds Abd: Soft,nt, nd Neuro: Alert, oriented, CN grossly intact; nonfocal screening?exam Psych: appropriate affect MSK: decreased muscle mass Skin; Warm, dry no rash on face Const: Vital Signs, click to edit/add: Vital Signs - 24 hr 07/05/23 16:43 07/05/23 16:53 Temperature 97.2 F L Respiratory Rate 22 Blood Pressure [Ri ght Upper Arm] 134/76 Pulse Oximetry 98 89 Oxygen Delivery Me thod Nasal Cannula Room Air Oxygen Flow Rate 2 Hospitalist - H&P: Result Labs Labs: BMP 07/05/23 17:30 Sodium 135 Potassium 3.4 L Chloride 96 Carbon Dioxide 28 BUN 11 Creatinine 0.6 Glucose 157 H Calcium 8.8 Liver Function 07/05/23 Range/Units 17:30 Total Bilirubin 1.0 (0.1-1.5) mg/dL Direct Bilirubin 0.0 (0.0-0.5) mg/dL AST 21 (12-35) U/L ALT 14 (4-35) U/L Alkaline Phosphatase 67 (40-150) U/L Albumin 3.2 L (3.3-5.0) g/dL Assessment and Plan Assessment and plan (1) Small cell carcinoma of lung: Status: Acute (2) Increased nausea and vomiting: Status: Acute (3) Hypokalemia: Problem comment: - potassium noted to be downtrending, 2.8. Improved with IV replacement. Disch arged with oral solution (comfort preference), to be used twice daily x4 days - follow-up with PCP for recheck Status: Acute (4) Atrial fibrillation with RVR: Problem comment: - appears to be a new diagnosis. Holter monitor completed in 07/2022 showing NSR and episodes of atrial tachycardia. EKG during this hospital stay showing AFib. ECHO 06/24/23 shows normal global systolic function, EF 60%, normal global systolic RV function, no stenosis, no regurgitation. Rhythm noted is sinus with frequent PACs/consecutive PACs versus brief atrial fibrillation. - noted to have a variable rate with increased tachycardia noted with outside stressors - home metoprolol extended dose was changed to short-acting metoprolol 50 mg b.i.d. and was noted to be appropriately rate responsive. Digoxin 250 mcg daily was also initiated and continued at time of discharge. She was continued on amlodipine 2.5 mg daily. Remained vitally stable. - per [facility] curbside consult on 06/24/23, patient would benefit from anticoagulation for stroke prevention as R ICA aneurysm is not a contraindication to this. - we discussed anticoagulation including risks and benefits (no significant finding of history of GI bleed per chart review other than single episode of bloody diarrhea postoperatively, external hemorrhoids). Patient and daughter, Saira, verbalized preference to take this information back to her PCP prior to initiating anticoagulation. On day of discharge, reminded to follow up with PCP and/or Cardiology regarding initiation of anticoagulation. During her hospital stay, she was otherwise maintained on Lovenox. 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 The patient had recent hospitalization and treated for pna with vancomycin, ertapenem, and azithromycin. She developed drug induced fever and neutropenia and thus ertapenem/vanco de-escalated with azithromycin. She was seen in clinic yesterday for post hospital follow up. She continued to endorse fatigue and returned to ED. In the ED the patient was afebrile, normal WBC, procal 0.11. CXR with RLL consolidation. She required 2 liters of supplemental oxygen at 96% (hx of COPD). She denied chest pain and pressure. She was admitted for further evaluation. 1. Acute hypoxia resolved currently 90% on room air; afebrile, normal WBC, procal 0.11. CXR with RLL consolidation. Multiple antibiotic allergies including cephalosporins, pcns, doxycyline, flagly, bactrim, vanco+ertapenem during last hospitalization caused neutropenia and drug induced fever. For now favor monitoring off antibiotics given allergy profile; if febrile will need to initiate antibiotic therapy. May have acute copd exacerbation, will obtain CT PE study to evaluate for PE, consider steroids/nebs/tessalon pending CT PE study 2. Hx of Non small cell lung cancer IIIb on chemoradiation therapy 3. Atrial fibrillation with SVR; will hold metoprolol for now given bradycardia HR in 40s 4. hypokalemia; potassium replacement 5. Hx of c difficile colitis; on chronic vancomycin suppression therapy 6. Generalized weakness; multifactorial to above; check UA Code Status-Full DVT ppx-lovenox
[2023-07-05 18:15] LABS: C Reactive Protein* 16.9 mg/dL (0.5-1.0); NT Pro B Type NatriureticPept* 836 pg/mL; Troponin I* < 0.01 ng/mL (0.01-0.04)
[2023-07-05 18:33] LABS: Basophils Absolute Auto 0.03 K/uL (0.00-0.30); Basophils Percent Auto 0.4 % (0.0-3.0); Eosinophils Absolute Auto 0.21 K/uL (0.00-0.50); Eosinophils Percent Auto 3.1 % (0.0-7.0); Hematocrit 41.9 % (33.0-51.0); Hemoglobin* 13.9 gm/dL (12.0-16.0); Immature Granulocytes Abs Auto 0.03 K/uL (0.00-0.30); Immature Granulocytes Pct Auto 0.4 %; Lymphocytes Absolute Auto 1.78 K/uL (0.90-2.90); Lymphocytes Percent Auto 26.3 % (20-44); Mean Corpuscular HGB Conc 33 gm/dL (32-36); Mean Corpuscular Hemoglobin 31 pg (26-34); Mean Corpuscular Volume 93 fL (80-100); Monocytes Percent Auto 9.1 % (0.0-11.0); Neutrophils Absolute Auto 4.11 K/uL (1.7-7.0); Neutrophils Percent Auto 60.7 % (42.0-72.0); Platelet Count* 166 K/uL (140-440); Red Blood Count 4.52 m/uL (4.00-5.20); White Blood Count* 6.78 K/uL (4.50-11.00)
[2023-07-05 18:34] LABS: Slide Review Reflex No
[2023-07-05 19:03] LABS: Procalcitonin* 0.11 ng/mL (<0.50)
--- NOTE | 2023-07-05 19:52 | CRLHL7_ITS ---
For Patients: As a result of the Century Cures Act, medical imaging exams and procedure reports are released immediately into your electronic medical record. You may view this report before your referring provider. If you have questions, please contact your health care provider. INDICATION: Hypoxia. Lung cancer TECHNIQUE: CT chest with i.v. contrast using pulmonary angiographic technique. Coronal and sagittal reformats were obtained. CONTRAST: 95 mL Isovue 370 COMPARISON: 06/23/2023 FINDINGS: Cardiovascular: The pulmonary arteries are unremarkable in enhancement with no evidence of acute pulmonary embolism. The heart has an unremarkable appearance and size. No sign of aneurysm in the thoracic aorta. A right Port-A-Cath is noted. Mediastinum: No mass or adenopathy seen. Lung: Patchy consolidation is seen in the mid lower lung zones bilaterally with a predominance in the right middle lobe and right lower lobe. The degree of consolidation is increased from prior examination. Mild centrilobular emphysema seen. In the superior segment of the left lower lobe, there is a cavitary lesion with spiculated margins abutting the left major fissure measuring 1.8 cm. Pleura and pericardium: No sign of pleural effusion seen. No significant pericardial effusion is present. Chest wall and axilla: No mass or adenopathy seen. Bone: Unremarkable for age. Upper abdomen: Unremarkable. IMPRESSIONS: 1. No CT evidence of acute pulmonary emboli seen. 2. Patchy consolidation is seen in the mid lower lung zones bilaterally with a predominance in the right middle lobe and right lower lobe. The degree of consolidation is increased from prior examination. Findings likely due to pneumonia and evaluation with bronchoscopy may be helpful. 3. In the superior segment of the left lower lobe, there is a cavitary lesion with spiculated margins abutting the left major fissure measuring 1.8 cm. The appearance is similar to prior examination. Evaluation with biopsy or PET scan is recommended when the patient is clinically stable. Dictated by Ajit Malin MD @ 07/05/2023 9:52:28 PM Please note that all CT scans at this facility use dose modulation, iterative reconstruction, and/or weight-based dosing when appropriate to reduce radiation dose to as low as reasonably achievable. Dictated by: Ajit Malin MD @ 07/05/2023 21:52:30 (Electronically Signed)
[2023-07-05] MEDS: PROCHLORPERAZINE 5 MG/ML VIAL IVP (19:54)
[2023-07-05] MEDS: ENOXAPARIN 40 MG/0.4 ML INJ SUBCUT (21:37)
[2023-07-05] MEDS: SODIUM CHLORIDE 0.9 % (FLUSH) 10 ML SYRINGE 5 ML IVF (21:38)
[2023-07-05] MEDS: IPRAT-ALBUT 0.5-2.5 MG/3 ML NEB 1 NEB IH (21:38)
[2023-07-05] MEDS: LORazepam 0.5 MG TABLET PO (21:38)
[2023-07-05 22:27] LABS: Appearance Urine Clear (Clear); Bilirubin Urine Negative (Negative); Blood Urine Negative (Negative); Color Urine Yellow (Yellow); Glucose Urine Negative (Negative); Ketones Urine 2+ (Negative); Leukocyte Esterase Urine Negative (Negative); Nitrite Urine Negative (Negative); Protein Urine Negative (Negative); Specific Gravity Urine 1.025 (1.000-1.030); Urobilinogen Urine 0.2 (0.2-1.0)
[2023-07-05 22:48] LABS: PCR FLU A Negative PCR FLU A (Negative); PCR FLU B Negative PCR FLU B (Negative); PCR RSV Negative PCR RSV (Negative); SARS PCR* Negative SARS-CoV-2 (Negative)
[2023-07-05] MEDS: ERTAPENEM 1 GM in 0.9 % SODIUM CHLORIDE Mini-bag 100 ML IVPB (23:03)
[2023-07-06] VITALS (14 sets, daily range): BP systolic 103–144; BP diastolic 51–76; PULSE 80–100; RESP 14–18; TEMP 36.7–37.6; O2SAT 88–95
[2023-07-06] MEDS: POTASSIUM CHLORIDE 10 MEQ, LIDOCAINE 1 % 1 ML in 0.9 % SODIUM CHLORIDE 100 ml 100 ML 106 MEQ IVPB ×3 (00:14→02:37)
--- NOTE | 2023-07-06 04:10 | PC.NURSE ---
PATIENT PLEASANT AND COOPERATIVE, ALERT AND ORIENTED, UP IND IN ROOM, .5L O2 VIA NC APPLIED SATS MID 80S FOR >1MIN ON RA WITH SLEEP, NAUSEA BEING MANAGED WITH PRN COMPAZINE, TOLERATING FLUIDS, PRODUCTIVE COUGH NOTED WITH WHITE SPUTUM.
[2023-07-06] MEDS: PROCHLORPERAZINE 5 MG/ML VIAL IVP ×3 (06:26→18:00)
[2023-07-06 06:44] LABS: HCO3 VBG 28 mmol/L (21-28); PCO2 VBG 42 mmHG (40-50); pH VBG 7.438 (7.32-7.43)
[2023-07-06 06:57] LABS: Basophils Absolute Auto 0.01 K/uL (0.00-0.30); Basophils Percent Auto 0.1 % (0.0-3.0); Hematocrit 29.8 % (33.0-51.0); Immature Granulocytes Abs Auto 0.09 K/uL (0.00-0.30); Immature Granulocytes Pct Auto 1.3 %; Lymphocytes Percent Auto 2.9 % (20-44); Mean Corpuscular HGB Conc 34 gm/dL (32-36); Mean Corpuscular Hemoglobin 31 pg (26-34); Mean Corpuscular Volume 92 fL (80-100); Monocytes Percent Auto 14.6 % (0.0-11.0); Neutrophils Percent Auto 81.1 % (42.0-72.0); Platelet Count* 420 K/uL (140-440); RDW Coefficient of Variation % 14.6 % (11.5-15.5); Red Blood Count 3.24 m/uL (4.00-5.20)
[2023-07-06 07:11] LABS: Chloride* 99 mmol/L (96-114)
[2023-07-06 07:12] LABS: Albumin* 2.9 g/dL (3.3-5.0); Potassium* 3.7 mmol/L (3.6-5.1); Sodium* 136 mmol/L (135-149)
[2023-07-06 07:14] LABS: Anion Gap 10 mEq/L (7-15); Carbon Dioxide* 27 mmol/L (20-32); Creatinine* 0.6 mg/dL (0.5-1.5); Est. Creatinine Clearance* 34.24; Estimated Glomerular Filt Rate 95 ml/min; Slide Review Reflex No
[2023-07-06 07:15] LABS: Alanine Aminotransferase* 13 U/L (4-35); Alkaline Phosphatase* 65 U/L (40-150); Aspartate Amino Transferase* 19 U/L (12-35); Bilirubin Total* 0.6 mg/dL (0.1-1.5); Blood Urea Nitrogen* 10 mg/dL (7-30); Calcium* 8.6 mg/dL (8.4-10.6); Glucose* 85 mg/dL (60-115); Magnesium* 1.4 mg/dL (1.5-2.6); Total Protein* 5.5 g/dL (6.0-8.3)
[2023-07-06 07:27] LABS: Procalcitonin* 0.15 ng/mL (<0.50)
[2023-07-06] MEDS: VANCOMYCIN 125 MG CAPSULE PO (09:33)
[2023-07-06] MEDS: DIGOXIN 250 MCG TABLET PO (09:33)
[2023-07-06] MEDS: LORazepam 0.5 MG TABLET PO ×2 (09:33→20:26)
[2023-07-06] MEDS: AMLODIPINE 5 MG TABLET 2.5 MG PO (09:33)
[2023-07-06] MEDS: IPRAT-ALBUT 0.5-2.5 MG/3 ML NEB 1 NEB IH ×3 (09:34→20:26)
[2023-07-06] MEDS: SODIUM CHLORIDE 0.9 % (FLUSH) 10 ML SYRINGE 5 ML IVF ×2 (09:34→20:31)
--- NOTE | 2023-07-06 11:41 | REH.OT ---
Orders received for OT evaluation and treatment. Per nursing, patient up ad rohith in room and able to take care of all ADLS. No formal OT warranted at this time.
[2023-07-06] MEDS: OXYCODONE 5 MG TABLET PO (12:28)
--- NOTE | 2023-07-06 15:44 | P.IMPN_ITS ---
Progress Note: A&P Assessment and plan (1) Small cell carcinoma of lung: Status: Acute (2) Increased nausea and vomiting: Problem details: Acute on chronic. Status: Acute (3) Hypokalemia: Status: Acute (4) Atrial fibrillation with RVR: Problem details: - appears to be a new diagnosis. Holter monitor completed in 07/2022 showing NSR and episodes of atrial tachycardia. EKG during most recent hospital stay showing AFib. ECHO 06/24/23 shows normal global systolic function, EF 60%, normal global systolic RV function, no stenosis, no regurgitation. Rhythm noted is sinus with frequent PACs/consecutive PACs versus brief atrial fibrillation. - noted to have a variable rate with increased tachycardia noted with outside stressors - home metoprolol extended dose was changed to short-acting metoprolol 50 mg b.i.d. and was noted to be appropriately rate responsive. Digoxin 250 mcg daily was also initiated and continued at time of discharge. She was continued on amlodipine 2.5 mg daily. Remained vitally stable. - per [facility] curbside consult on 06/24/23, patient would benefit from anticoagulation for stroke prevention as R ICA aneurysm is not a contraindication to this. - we discussed anticoagulation including risks and benefits (no significant finding of history of GI bleed per chart review other than single episode of bloody diarrhea postoperatively, external hemorrhoids). Patient and daughter, Saira, verbalized preference to take this information back to her PCP prior to initiating anticoagulation. On day of discharge, reminded to follow up with PCP and/or Cardiology regarding initiation of anticoagulation. During her hospital stay, she was otherwise maintained on Lovenox. Status: Acute (5) Pneumonia: Problem details: - Multifocal pneumonia empirically treated as healthcare acquired source initially with IV ertapenem and vancomycin during recent hospitalization 06/24- 06/27/23. These were discontinued as suspected drug related neutropenia, hypokalemia, and drug induced fever were noted, in setting of immunocompromised state related to active cancer treatment with chemotherapy and radiation. After reviewing her multiple antibiotic allergies with pharmacy, decision was made to transition to oral azithromycin to complete a 7 day course of antibiotic therapy. - restarted on IV ertapenem 07/05/2023 with increasing pulmonary infiltrate compared to prior radiographic studies. - Scheduled DuoNebs q.i.d., albuterol nebs q.4 hours p.r.n., and incentive spirometry utilized. Status: Acute Plan 1. Reviewed impression with patient 2. Continue with IV or dependent for now 3. Continue with other supportive efforts 4. Attempt to increase activity level closer to baseline, if she tolerates then consider discharge 5. Continue with as needed prochlorperazine and reacted as needed ondansetron for nausea and vomiting 6. Monitor orthostatic blood pressures and pulses Time Spent With Patient Total time spent: 40 minutes Subjective Time Seen by Provider: 09:00 Date Seen: 07/06/23 Interval history: Hospital day 2. 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 The patient had recent hospitalization [from 06/24-06/27/2023] and treated for pna with vancomycin, ertapenem, and azithromycin. She developed drug induced fever and neutropenia and thus ertapenem/vanco de-escalated with azithromycin. She was seen in clinic yesterday for post hospital follow up. She continued to endorse fatigue and returned to ED. In the ED the patient was afebrile, normal WBC, procal 0.11. CXR with RLL consolidation. She required 2 liters of supplemental oxygen at 96% (hx of COPD). She denied chest pain and pressure. She was admitted for further evaluation. Patient informs me this morning that she has had nausea for some time. This is not new. She believes she feels improved today compared to yesterday and is alphonso ser to baseline. Tolerating increased activities. Tolerating oral intake. Exam Narrative: Exam Narrative: Appears comfortable no acute distress. Examined in her hospital room. Alert and oriented to self, place, time, situation. Articulate and cooperative. Appears thin and cachectic. On auscultation of her lungs she has rales on the right side. No wheezing or rhonchi. Heart tones with regular rhythm, normal S1-S2. Abdomen thin with active bowel sounds, soft, nontender. Independent transfer, station, and gait. Const: Vital Signs, click to edit/add: Vital Signs - 24 hr 07/05/23 16:43 07/05/23 16:53 07/05/23 17:34 Temperature 97.2 F L Pulse Rate 41 L Pulse Rate [Left P ulse Oximeter] Pulse Rate [Right Radial] Respiratory Rate 22 Blood Pressure [Le ft Arm] Blood Pressure [Ri ght Upper Arm] 134/76 Pulse Oximetry 98 89 97 Oxygen Delivery Me thod Nasal Cannula Room Air Oxygen Flow Rate 2 07/05/23 17:45 07/05/23 18:00 07/05/23 18:15 Temperature Pulse Rate 78 50 L 81 Pulse Rate [Left P ulse Oximeter] Pulse Rate [Right Radial] Respiratory Rate Blood Pressure [Le ft Arm] Blood Pressure [Ri ght Upper Arm] Pulse Oximetry 99 90 97 Oxygen Delivery Me thod Oxygen Flow Rate 07/05/23 18:30 07/05/23 19:02 07/05/23 19:02 Temperature 97.8 F Pulse Rate 77 Pulse Rate [Left P ulse Oximeter] Pulse Rate [Right Radial] 79 Respiratory Rate 20 20 Blood Pressure [Le ft Arm] 152/80 H Blood Pressure [Ri ght Upper Arm] Pulse Oximetry 97 96 88 Oxygen Delivery Me thod Nasal Cannula Room Air Oxygen Flow Rate 2 07/05/23 23:00 07/05/23 23:00 07/05/23 23:00 Temperature Pulse Rate 80 Pulse Rate [Left P ulse Oximeter] Pulse Rate [Right Radial] Respiratory Rate 18 Blood Pressure [Le ft Arm] Blood Pressure [Ri ght Upper Arm] Pulse Oximetry 92 Oxygen Delivery Me thod Oxygen Flow Rate 07/05/23 23:00 07/05/23 23:00 07/06/23 03:00 Temperature 97.8 F 98.0 F Pulse Rate Pulse Rate [Left P ulse Oximeter] Pulse Rate [Right Radial] 82 88 Respiratory Rate 18 18 14 Blood Pressure [Le ft Arm] 122/65 128/68 Blood Pressure [Ri ght Upper Arm] Pulse Oximetry 92 92 95 Oxygen Delivery Me thod Nasal Cannula Nasal Cannula Nasal Cannula Oxygen Flow Rate 0.5 0.5 0.5 07/06/23 07:47 07/06/23 08:30 07/06/23 08:30 Temperature 98.9 F Pulse Rate Pulse Rate [Left P ulse Oximeter] 93 Pulse Rate [Right Radial] Respiratory Rate 18 18 Blood Pressure [Le ft Arm] 120/69 Blood Pressure [Ri ght Upper Arm] Pulse Oximetry 90 90 90 Oxygen Delivery Me thod Nasal Cannula Nasal Cannula Oxygen Flow Rate 0.5 0.5 07/06/23 09:33 07/06/23 11:38 07/06/23 12:14 Temperature Pulse Rate 93 85 Pulse Rate [Left P ulse Oximeter] 98 Pulse Rate [Right Radial] Respiratory Rate 16 Blood Pressure [Le ft Arm] 144/76 H Blood Pressure [Ri ght Upper Arm] Pulse Oximetry 88 Oxygen Delivery Me thod Nasal Cannula Oxygen Flow Rate 1 07/06/23 15:37 07/06/23 15:37 Temperature 98.9 F Pulse Rate Pulse Rate [Left P ulse Oximeter] 100 Pulse Rate [Right Radial] Respiratory Rate 18 Blood Pressure [Le ft Arm] 129/69 Blood Pressure [Ri ght Upper Arm] Pulse Oximetry 89 89 Oxygen Delivery Me thod Nasal Cannula Nasal Cannula Oxygen Flow Rate 1 1 Documenting provider has reviewed patient's vital signs: yes Labs Labs: Laboratory Results - last 24 hr 07/05/23 07/05/23 07/05/23 16:43 17:30 18:36 WBC 6.78 RBC 4.52 Hgb 13.9 Hct 41.9 MCV 93 MCH 31 MCHC 33 RDW Coeff of Álvaro 13.0 Plt Count 166 Neut % (Auto) 60.7 Lymph % (Auto) 26.3 Nicholas % (Auto) 9.1 Eos % (Auto) 3.1 Baso % (Auto) 0.4 Neut # (Auto) 4.11 Lymph # (Auto) 1.78 Nicholas # (Auto) 0.60 Eos # (Auto) 0.21 Baso # (Auto) 0.03 Abs Immat Gran (auto) 0.03 Imm/Tot Granulo (auto) 0.4 VBG pH VBG pCO2 VBG pO2 VBG HCO3 Sodium 135 Potassium 3.4 L Chloride 96 Carbon Dioxide 28 Anion Gap 11 BUN 11 Creatinine 0.6 Estimated Creat Clear 34.44 Estimated GFR 95 Glucose 157 H Calcium 8.8 Magnesium Total Bilirubin 1.0 Direct Bilirubin 0.0 AST 21 ALT 14 Alkaline Phosphatase 67 Troponin I < 0.01 L C-Reactive Protein 16.9 H NT-Pro-B Natriuret Pep 836 Total Protein 6.1 Albumin 3.2 L Procalcitonin 0.11 Urine Color Urine Appearance Urine pH Ur Specific [place] Urine Protein Urine Glucose (UA) Urine Ketones Urine Blood Urine Nitrite Urine Bilirubin Urine Urobilinogen Ur Leukocyte Esterase SARS-CoV-2 (PCR) Negative SARS-CoV-2 Influenza Type A (PCR) Negative PCR FLU A Influenza Type B (PCR) Negative PCR FLU B RSV (PCR) Negative PCR RSV Lab Acknowledgement Test Added 07/05/23 07/06/23 20:15 06:32 WBC 7.20 RBC 3.24 L Hgb 10.0 L Hct 29.8 L MCV 92 MCH 31 MCHC 34 RDW Coeff of Álvaro 14.6 Plt Count 420 Neut % (Auto) 81.1 H Lymph % (Auto) 2.9 L Nicholas % (Auto) 14.6 H Eos % (Auto) 0.0 Baso % (Auto) 0.1 Neut # (Auto) 5.80 Lymph # (Auto) 0.20 L Nicholas # (Auto) 1.10 H Eos # (Auto) 0.00 Baso # (Auto) 0.01 Abs Immat Gran (auto) 0.09 Imm/Tot Granulo (auto) 1.3 VBG pH 7.438 H VBG pCO2 42 VBG pO2 36.0 VBG HCO3 28 Sodium 136 Potassium 3.7 Chloride 99 Carbon Dioxide 27 Anion Gap 10 BUN 10 Creatinine 0.6 Estimated Creat Clear 34.24 Estimated GFR 95 Glucose 85 Calcium 8.6 Magnesium 1.4 L Total Bilirubin 0.6 Direct Bilirubin AST 19 ALT 13 Alkaline Phosphatase 65 Troponin I C-Reactive Protein NT-Pro-B Natriuret Pep Total Protein 5.5 L Albumin 2.9 L Procalcitonin 0.15 Urine Color Yellow Urine Appearance Clear Urine pH 6.0 Ur Specific [place] 1.025 Urine Protein Negative Urine Glucose (UA) Negative Urine Ketones 2+ A Urine Blood Negative Urine Nitrite Negative Urine Bilirubin Negative Urine Urobilinogen 0.2 Ur Leukocyte Esterase Negative SARS-CoV-2 (PCR) Influenza Type A (PCR) Influenza Type B (PCR) RSV (PCR) Lab Acknowledgement
[2023-07-06] MEDS: ACETAMINOPHEN 325 MG TABLET 650 MG PO (16:59)
[2023-07-06] MEDS: ONDANSETRON ODT 4 MG TAB PO (17:00)
[2023-07-06] MEDS: OLANZapine 5 MG TAB.RAPDIS PO (17:59)
--- NOTE | 2023-07-06 18:25 | PC.NURSE ---
End of Shift.. Alert and Orientated throughout the day. Complaints of R sided pain when breathing throughout the day ranging from 5-6 PRN Oxy given 1x, patient did not want anything else for pain later on in the shift. Continuos pulse oximetry in place orders to maintain O2 greater than 88%. Oxygen via NC on throughout the day tried to ween her from the O2 and desaturated down to the upper 70's- low 80's. On 1L NC. Telemetry in place, encouraged deep breathing with incentive spirometer. Reported nausea continuously throughout the afternoon, order from Dr Ferrari for Zofran. Compazine given 2x and Zofran given 1x. Upon 1500 assessment low grade fever of 99.9- PRN Tylenol given. HR is intermittently tachycardic. Expiatory rhonchi upon auscultation. Poor appetite and PO intake.. encouraged her to drink the clear ensure but she does not like the flavor very much. Up independently in the room with O2 extension. Intermittent wet productive cough. Her daughter would like to be updated if things change. Call light within reach.
[2023-07-06] MEDS: ENOXAPARIN 40 MG/0.4 ML INJ SUBCUT (20:25)
[2023-07-06] MEDS: ERTAPENEM 1 GM in 0.9 % SODIUM CHLORIDE Mini-bag 100 ML IVPB (21:49)
[2023-07-07] VITALS (13 sets, daily range): BP systolic 107–146; BP diastolic 61–81; PULSE 83–110; RESP 14–18; TEMP 36.7–38.2; O2SAT 88–98
--- NOTE | 2023-07-07 05:10 | PC.NURSE ---
PATIENT ALERT AND ORIENTED, UP IND IN ROOM, PATIENT EXPRESSING FEELING VERY FATIGUED, HAS BEEN ABLE SLEEP OFF AND ON DURING SHIFT, DECLINING PAIN, POOR APPETITE, ENCOURAGING INTAKE OF FLUIDS.
[2023-07-07 06:31] LABS: HCO3 VBG 31 mmol/L (21-28); Lactate* 0.6 mmol/L (0.5-1.9); PCO2 VBG 42 mmHG (40-50); PO2 VBG 46.1 mmHG (25-47); pH VBG 7.478 (7.32-7.43)
[2023-07-07 06:41] LABS: Hematocrit 27.2 % (33.0-51.0); Mean Corpuscular HGB Conc 33 gm/dL (32-36); Mean Corpuscular Hemoglobin 30 pg (26-34); Mean Corpuscular Volume 92 fL (80-100); Platelet Count* 362 K/uL (140-440); Red Blood Count 2.96 m/uL (4.00-5.20); White Blood Count* 6.86 K/uL (4.50-11.00)
[2023-07-07] MEDS: IPRAT-ALBUT 0.5-2.5 MG/3 ML NEB 1 NEB IH ×2 (06:45→20:37)
[2023-07-07 06:53] LABS: Chloride* 99 mmol/L (96-114); Potassium* 3.3 mmol/L (3.6-5.1); Sodium* 134 mmol/L (135-149)
[2023-07-07 06:55] LABS: Creatinine* 0.5 mg/dL (0.5-1.5); Est. Creatinine Clearance* 34.56; Estimated Glomerular Filt Rate 99 ml/min
[2023-07-07 06:56] LABS: Anion Gap 3 mEq/L (7-15); Blood Urea Nitrogen* 7 mg/dL (7-30); Carbon Dioxide* 32 mmol/L (20-32); Glucose* 85 mg/dL (60-115); Lipase* 85 U/L (23-300); Phosphorus* 2.5 mg/dL (2.5-4.5)
[2023-07-07 06:57] LABS: Calcium* 8.2 mg/dL (8.4-10.6); Magnesium* 1.3 mg/dL (1.5-2.6)
[2023-07-07 06:59] LABS: C Reactive Protein* 8.6 mg/dL (0.5-1.0)
[2023-07-07 07:05] LABS: Slide Review Reflex No
[2023-07-07 07:12] LABS: Procalcitonin* 0.13 ng/mL (<0.50)
[2023-07-07] MEDS: VANCOMYCIN 125 MG CAPSULE PO (07:56)
[2023-07-07] MEDS: DIGOXIN 250 MCG TABLET PO (07:56)
[2023-07-07] MEDS: AMLODIPINE 5 MG TABLET 2.5 MG PO (07:57)
[2023-07-07] MEDS: LORazepam 0.5 MG TABLET PO ×2 (07:57→20:38)
[2023-07-07] MEDS: SODIUM CHLORIDE 0.9 % (FLUSH) 10 ML SYRINGE 5 ML IVF ×4 (07:57→20:38)
[2023-07-07] MEDS: MAGNESIUM IV 2 GM/50 ML PIGGYBACK IVPB (10:42)
[2023-07-07] MEDS: HEPARIN 500 UNIT/5 ML SYRINGE IVF ×2 (12:06→18:17)
[2023-07-07] MEDS: POTASSIUM CHLORIDE 10 MEQ/100 ML PIGGYBACK 100 MEQ IVPB ×3 (12:06→15:57)
[2023-07-07] MEDS: PROCHLORPERAZINE 5 MG/ML VIAL IVP (14:00)
--- NOTE | 2023-07-07 16:00 | P.IMPN_ITS ---
Progress Note: A&P Assessment and plan (1) Small cell carcinoma of lung: Problem details: Stage IIIB. Recently completed round of palliative radiation therapy and chemotherapy. She states she has no other treatment options at this time. Desires full resuscitation in event of cardiopulmonary demise but is inclined to change paradigm of care to reflect comfort focus measures only. Status: Acute (2) Increased nausea and vomiting: Problem details: Acute on chronic. Certainly contributes to her cachexia. Status: Acute (3) Hypokalemia: Problem details: Requiring additional potassium supplementation. Status: Acute (4) Atrial fibrillation with RVR: Problem details: - appears to be a new diagnosis. Holter monitor completed in 07/2022 showing NSR and episodes of atrial tachycardia. EKG during most recent hospital stay showing AFib. ECHO 06/24/23 shows normal global systolic function, EF 60%, normal global systolic RV function, no stenosis, no regurgitation. Rhythm noted is sinus with frequent PACs/consecutive PACs versus brief atrial fibrillation. - noted to have a variable rate with increased tachycardia noted with outside stressors - home metoprolol extended dose was changed to short-acting metoprolol 50 mg b.i.d. and was noted to be appropriately rate responsive. Digoxin 250 mcg daily was also initiated and continued at time of discharge. She was continued on amlodipine 2.5 mg daily. Remained vitally stable. - per [facility] curbside consult on 06/24/23, patient would benefit from anticoagulation for stroke prevention as R ICA aneurysm is not a contraindication to this. - we discussed anticoagulation including risks and benefits (no significant finding of history of GI bleed per chart review other than single episode of bloody diarrhea postoperatively, external hemorrhoids). Patient and daughter, Saira, verbalized preference to take this information back to her PCP prior to initiating anticoagulation. On day of discharge, reminded to follow up with PCP and/or Cardiology regarding initiation of anticoagulation. During her hospital stay, she was otherwise maintained on Lovenox. Status: Acute (5) Pneumonia: Problem details: - Multifocal pneumonia empirically treated as healthcare acquired source initially with IV ertapenem and vancomycin during recent hospitalization 06/24- 06/27/23. These were discontinued as suspected drug related neutropenia, hypokalemia, and drug induced fever were noted, in setting of immunocompromised state related to active cancer treatment with chemotherapy and radiation. After reviewing her multiple antibiotic allergies with pharmacy, decision was made to transition to oral azithromycin to complete a 7 day course of antibiotic therapy. - restarted on IV ertapenem 07/05/2023 with increasing pulmonary infiltrate compared to prior radiographic studies. - Scheduled DuoNebs q.i.d., albuterol nebs q.4 hours p.r.n., and incentive s pirometry utilized. Status: Acute (6) Cancer cachexia: Problem details: Will restart olanzapine 2.5 mg once daily. Consider increasing dose. Consider adding mirtazapine 7.5 mg once daily. Status: Acute (7) Hypomagnesemia: Problem details: Requiring magnesium supplementation. Status: Acute (8) C. difficile colitis: Problem details: - Recalcitrant, has been on oral daily vancomycin for suppression for 2 years - Asymptomatic, continue current oral vanco regimen Status: Acute (9) Pulmonary cachexia due to COPD: Status: Acute (10) COPD (chronic obstructive pulmonary disease): Problem details: Continue nebs, pulmonary support. Status: Acute Plan 1. Had a maricel conversation with the patient and her daughter, Cassie. Patient is running out of treatment options for her lung cancer. 2. Continue with efforts to treat pneumonia for now. 3. Restart olanzapine to stimulate appetite. Consider increasing dose verses adding mirtazapine in the future. 4. Continue with other supportive efforts for now. 5. Patient considering the possibility of changing her resuscitation status to DNR DNI. Not ready today. 6. Initiated discussion with patient and daughter regarding the possibility of hospice services. Time Spent With Patient Total time spent: 60 minutes Subjective Time Seen by Provider: 10:30 Date Seen: 07/07/23 Interval history: Hospital day 3. 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 The patient had recent hospitalization [from 06/24-06/27/2023] and treated for pna with vancomycin, ertapenem, and azithromycin. She developed drug induced fever and neutropenia and thus ert apenem/vanco de-escalated with azithromycin. She was seen in clinic yesterday for post hospital follow up. She continued to endorse fatigue and returned to ED. In the ED the patient was afebrile, normal WBC, procal 0.11. CXR with RLL consolidation. She required 2 liters of supplemental oxygen at 96% (hx of COPD). She denied chest pain and pressure. She was admitted for further evaluation. Patient informs me this morning that her chronic nausea and intermittent vomiting is improved today. Overall, however, she feels more fatigued and tired today compared to yesterday and is getting worse. She has less tolerant of activities. Although she is tolerating oral intake, she is not very interested in eating or drinking - she acknowledges this is chronic but today is noticeably worse. Exam Narrative: Exam Narrative: Examine her in her hospital room. She is laying in a semi recumbent position in her hospital bed. As I walk in to her room, she has a weak cough and is trying to clear sputum from her throat and mouth. The sputum is thick and connell colored. Appears thin and cachectic. Vision and hearing are grossly normal. Alert and oriented to self, place, time and situation. Able to engage in a meaningful three-way conversation between herself, her daughter, Cassie, via telephone, and myself in person. Somber mood. Tells me on the 1 hand she wants to try to live so she can be with her grandchildren, but on the other hand she tells me if she does not live she is ready. Lungs with scattered rhonchi with rales in the right base. No wheezing. Heart tones with regular rhythm, normal S1-S2. Abdomen is thin with active bowel sounds, soft. Const: Vital Signs, click to edit/add: Vital Signs - 24 hr 07/06/23 16:47 07/06/23 16:55 07/06/23 16:59 Temperature 99.5 F 99.6 F Pulse Rate Pulse Rate [Left P ulse Oximeter] Pulse Rate [Right Radial] Respiratory Rate Blood Pressure [Le ft Arm] Pulse Oximetry 88 Oxygen Delivery Me thod Oxygen Flow Rate 07/06/23 19:00 07/06/23 22:27 07/06/23 22:27 Temperature 98.8 F Pulse Rate 80 Pulse Rate [Left P ulse Oximeter] 85 Pulse Rate [Right Radial] Respiratory Rate 14 16 Blood Pressure [Le ft Arm] 103/51 L Pulse Oximetry 92 Oxygen Delivery Me thod Nasal Cannula Oxygen Flow Rate 1 07/06/23 22:27 07/06/23 22:27 07/06/23 22:34 Temperature Pulse Rate Pulse Rate [Left P ulse Oximeter] 81 Pulse Rate [Right Radial] Respiratory Rate 16 16 Blood Pressure [Le ft Arm] Pulse Oximetry 95 95 95 Oxygen Delivery Me thod Nasal Cannula Nasal Cannula Oxygen Flow Rate 1.5 1.5 07/07/23 03:00 07/07/23 07:28 07/07/23 07:46 Temperature 98.0 F 98.8 F Pulse Rate 104 H Pulse Rate [Left P ulse Oximeter] 92 110 H Pulse Rate [Right Radial] Respiratory Rate 16 18 Blood Pressure [Le ft Arm] 146/81 H 117/75 Pulse Oximetry 91 89 Oxygen Delivery Me thod Nasal Cannula Nasal Cannula Oxygen Flow Rate 1 1 07/07/23 07:56 07/07/23 08:00 07/07/23 08:29 Temperature Pulse Rate 100 Pulse Rate [Left P ulse Oximeter] Pulse Rate [Right Radial] Respiratory Rate Blood Pressure [Le ft Arm] Pulse Oximetry 88 88 Oxygen Delivery Me thod Nasal Cannula Oxygen Flow Rate 2 07/07/23 12:31 Temperature Pulse Rate Pulse Rate [Left P ulse Oximeter] 100 Pulse Rate [Right Radial] 95 Respiratory Rate 18 Blood Pressure [Le ft Arm] 130/61 Pulse Oximetry 93 Oxygen Delivery Me thod Nasal Cannula Oxygen Flow Rate 2 Documenting provider has reviewed patient's vital signs: yes Labs Labs: Laboratory Results - last 24 hr 07/07/23 05:57 WBC 6.86 RBC 2.96 L Hgb 9.0 L Hct 27.2 L MCV 92 MCH 30 MCHC 33 Plt Count 362 VBG pH 7.478 H VBG pCO2 42 VBG pO2 46.1 VBG HCO3 31 H Sodium 134 L Potassium 3.3 L Chloride 99 Carbon Dioxide 32 Anion Gap 3 L BUN 7 Creatinine 0.5 Estimated Creat Clear 34.56 Estimated GFR 99 Glucose 85 Lactate 0.6 Calcium 8.2 L Phosphorus 2.5 Magnesium 1.3 L C-Reactive Protein 8.6 H Lipase 85 Procalcitonin 0.13
[2023-07-07] MEDS: ACETAMINOPHEN 325 MG TABLET 650 MG PO (16:06)
[2023-07-07] MEDS: 0.9 % SODIUM CHLORIDE 1000 ml 1,000 ML 125 ML IV (16:17)
--- NOTE | 2023-07-07 18:56 | PC.NURSE ---
End of shift: A and oreintated although intermittent confusion throughout the day. Woke up from a nap and was unsure if she was in her room or not. VS on 2L NC O2 stats ranging from 87-90%. No reports of pain throughout the shift. Tylenol given 1x for mild fever of 100.9. IV fluids @ [address] Ferrari's order. Patients R chest port was accessed today to infusion IV potassium (3 doses), IV Mag was ordered as well and infused. Both of the patients daughter's were here today main contact is Saira. Up to the chair today for a while, reported feeling somewhat better. [place] was given and educated to patient by respiratory therapy this AM. 1 episode of bladder and Bowel incontinence today reports she could not get there in time. Will call if uncomfortable.
[2023-07-07] MEDS: ENOXAPARIN 40 MG/0.4 ML INJ SUBCUT (20:37)
[2023-07-07 21:53] LABS: Troponin I* < 0.01 ng/mL (0.01-0.04)
[2023-07-07] MEDS: ERTAPENEM 1 GM in 0.9 % SODIUM CHLORIDE Mini-bag 100 ML IVPB (22:05)
[2023-07-07] MEDS: MORPHINE 2 MG/ML inj IVP (22:25)
--- NOTE | 2023-07-07 22:37 | W.PM.CROSSCO ---
Subjective Subjective Interval history: patient with chest pain, Trop WNL, ekg obtained, morphine+nitro prn for cp
[2023-07-08] VITALS (8 sets, daily range): BP systolic 112–120; BP diastolic 14–73; PULSE 88–102; RESP 18–20; TEMP 36.7–37.1; O2SAT 89–98; BMI 16.5
[2023-07-08] MEDS: HEPARIN 500 UNIT/5 ML SYRINGE IVF ×4 (00:19→23:18)
[2023-07-08] MEDS: SODIUM CHLORIDE 0.9 % (FLUSH) 10 ML SYRINGE 5 ML IVF ×5 (00:19→20:51)
--- NOTE | 2023-07-08 04:36 | PC.NURSE ---
PATIENT ALERT AND ORIENTED, VERY FATIGUED, UP SBA, EXPRESSED HAVING CHEST PAIN THAT DID NOT RADIATE, MD UPDATED SEE ORDERS, CALLED SHANAE BARCLAY TO UPDATE PER REQUEST AND MESSAGE LEFT, TOLERATING OXYGEN AT 1L VIA NC, PATIENT TEARY EYED ASKED IS THIS GOING TO GET BETTER? DECLINING PAIN.
[2023-07-08 06:59] LABS: Troponin I* < 0.01 ng/mL (0.01-0.04)
[2023-07-08 07:35] LABS: Hematocrit 27.6 % (33.0-51.0); Hemoglobin* 8.9 gm/dL (12.0-16.0); Mean Corpuscular HGB Conc 32 gm/dL (32-36); Mean Corpuscular Hemoglobin 30 pg (26-34); Mean Corpuscular Volume 92 fL (80-100); Platelet Count* 362 K/uL (140-440); Red Blood Count 2.99 m/uL (4.00-5.20); White Blood Count* 6.07 K/uL (4.50-11.00)
[2023-07-08 07:51] LABS: Slide Review Reflex No
[2023-07-08 08:45] LABS: Potassium* 3.4 mmol/L (3.6-5.1)
[2023-07-08 08:48] LABS: Magnesium* 1.6 mg/dL (1.5-2.6)
[2023-07-08] MEDS: DIGOXIN 250 MCG TABLET PO (09:07)
[2023-07-08] MEDS: VANCOMYCIN 125 MG CAPSULE PO (09:07)
[2023-07-08] MEDS: LORazepam 0.5 MG TABLET PO ×2 (09:07→20:51)
[2023-07-08] MEDS: AMLODIPINE 5 MG TABLET 2.5 MG PO (09:08)
[2023-07-08] MEDS: IPRAT-ALBUT 0.5-2.5 MG/3 ML NEB 1 NEB IH ×4 (09:09→20:51)
--- NOTE | 2023-07-08 13:22 | P.IMPN_ITS ---
Progress Note: A&P Assessment and plan (1) Small cell carcinoma of lung: Problem details: Stage IIIB. Recently completed round of palliative radiation therapy and chemotherapy. She states she has no other treatment options at this time. Desires full resuscitation in event of cardiopulmonary demise but is inclined to change paradigm of care to reflect comfort focus measures only in the future. Tells me she wants to live at least for the next 2 weeks so she can attend her grandson's wedding. Status: Acute (2) Increased nausea and vomiting: Problem details: Acute on chronic. Certainly contributes to her cachexia. Status: Acute (3) Hypokalemia: Problem details: Requiring additional potassium supplementation. Status: Acute (4) Atrial fibrillation with RVR: Problem details: - appears to be a new diagnosis. Holter monitor completed in 07/2022 showing NSR and episodes of atrial tachycardia. EKG during most recent hospital stay showing AFib. ECHO 06/24/23 shows normal global systolic function, EF 60%, normal global systolic RV function, no stenosis, no regurgitation. Rhythm noted is sinus with frequent PACs/consecutive PACs versus brief atrial fibrillation. - noted to have a variable rate with increased tachycardia noted with outside stressors - home metoprolol extended dose was changed to short-acting metoprolol 50 mg b.i.d. and was noted to be appropriately rate responsive. Digoxin 250 mcg daily was also initiated and continued at time of discharge. She was continued on amlodipine 2.5 mg daily. Remained vitally stable. - per [facility] curbside consult on 06/24/23, patient would benefit from anticoagulation for stroke prevention as R ICA aneurysm is not a contraindication to this. - we discussed anticoagulation including risks and benefits (no significant finding of history of GI bleed per chart review other than single episode of bloody diarrhea postoperatively, external hemorrhoids). Patient and daughter, Saira, verbalized preference to take this information back to her PCP prior to initiating anticoagulation. On day of discharge, reminded to follow up with PCP and/or Cardiology regarding initiation of anticoagulation. During her hospital stay, she was otherwise maintained on Lovenox. Status: Acute (5) Pneumonia: Problem details: - Multifocal pneumonia empirically treated as healthcare acquired source initially with IV ertapenem and vancomycin during recent hospitalization 06/24- 06/27/23. These were discontinued as suspected drug related neutropenia, hypokalemia, and drug induced fever were noted, in setting of immunocompromised state related to active cancer treatment with chemotherapy and radiation. After reviewing her multiple antibiotic allergies with pharmacy, decision was made to transition to oral azithromycin to complete a 7 day course of antibiotic therapy. - restarted on IV ertapenem 07/05/2023 with increasing pulmonary infiltrate co mpared to prior radiographic studies. - Scheduled DuoNebs q.i.d., albuterol nebs q.4 hours p.r.n., and incentive spirometry utilized. Status: Acute (6) Cancer cachexia: Problem details: Will restart olanzapine 2.5 mg once daily. Consider increasing dose. Consider adding mirtazapine 7.5 mg once daily. Status: Acute (7) Hypomagnesemia: Problem details: Requiring magnesium supplementation. Status: Acute (8) C. difficile colitis: Problem details: - Recalcitrant, has been on oral daily vancomycin for suppression for 2 years - Asymptomatic, continue current oral vanco regimen Status: Acute (9) Pulmonary cachexia due to COPD: Status: Acute (10) COPD (chronic obstructive pulmonary disease): Problem details: Continue nebs, pulmonary support. Status: Acute Plan 1. Reviewed impression with patient. 2. Patient's daughter, Cassie, and her granddaughter are present today. Reviewed the patient's current situation and circumstances. Again discuss the idea of eventually considering adding hospice support. 3. Patient and family again expressed desire continue to support patient through this illness if at all possible. For now they wish to continue with full resuscitation efforts in the event of cardiopulmonary demise. 4. Increase physical activities as tolerated. 5. Continue with other supportive efforts as specified above. 6. Patient family agreeable. 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 The patient had recent hospitalization [from 06/24-06/27/2023] and treated for pna with vancomycin, ertapenem, and azithromycin. She developed drug induced fever and neutropenia and thus ertapenem/vanco de-escalated with azithromycin. She was seen in clinic yesterday for post hospital follow up. She continued to endorse fatigue and returned to ED. In the ED the patient was afebrile, normal WBC, procal 0.11. CXR with RLL consolidation. She required 2 liters of supplemental oxygen at 96% (hx of COPD). She denied chest pain and pressure. She was admitted for further evaluation. Patient informs me this morning that her chronic nausea and intermittent vomiting continues to be well managed. She coughed a fair amount of thick sputum yesterday when is able to clear this from her airway. She feels better today. Denies dyspnea. Denies chest discomfort at this time. Did have an episode of chest pain during the night for which she was assessed with negative electrocardiographic changes biochemical changes. This has resolved since then. She is a little more tolerant of activities today. More interested in trying to eat and drink today. Did state restart her olanzapine yesterday to help stimulate her appetite. Exam Narrative: Exam Narrative: Examined patient in her room. Appears comfortable in no acute distress. Awake and talkative and interactive today. Still anxious and seemingly afraid given her condition. T-max yesterday 100.7? F. She is afebrile today with temperature of 98.3? F. Cachectic appearance. Lungs with scattered rhonchi. No wheezing. Right lower lobe rales still present. Heart tones with regular rhythm, normal S1-S2. Abdomen is thin with active bowel sounds, soft, nontender. Extremities without edema. Const: Vital Signs, click to edit/add: Vital Signs - 24 hr 07/07/23 15:00 07/07/23 15:00 07/07/23 15:59 Temperature 100.6 F H Pulse Rate Pulse Rate [Left P ulse Oximeter] 102 H Pulse Rate [Right Radial] Respiratory Rate 18 Blood Pressure [Le ft Arm] 126/63 Pulse Oximetry 90 90 90 Oxygen Delivery Me thod Nasal Cannula Oxygen Flow Rate 2 1.5 07/07/23 16:06 07/07/23 18:18 07/07/23 19:00 Temperature 99.8 F H 100.7 F H 98.8 F Pulse Rate Pulse Rate [Left P ulse Oximeter] 88 Pulse Rate [Right Radial] Respiratory Rate 14 Blood Pressure [Le ft Arm] 107/66 Pulse Oximetry 92 Oxygen Delivery Me thod Nasal Cannula Oxygen Flow Rate 2.0 07/07/23 23:00 07/07/23 23:00 07/07/23 23:00 Temperature Pulse Rate Pulse Rate [Left P ulse Oximeter] Pulse Rate [Right Radial] Respiratory Rate 16 16 Blood Pressure [Le ft Arm] Pulse Oximetry 97 97 Oxygen Delivery Me thod Nasal Cannula Oxygen Flow Rate 2.0 07/07/23 23:00 07/08/23 03:00 07/08/23 07:34 Temperature 99.0 F 98.1 F Pulse Rate Pulse Rate [Left P ulse Oximeter] 83 88 91 Pulse Rate [Right Radial] 98 Respiratory Rate 18 18 18 Blood Pressure [Le ft Arm] 109/67 113/73 Pulse Oximetry 98 98 90 Oxygen Delivery Me thod Nasal Cannula Nasal Cannula Room Air Oxygen Flow Rate 2.0 1.0 0 07/08/23 07:34 07/08/23 07:34 07/08/23 09:07 Temperature Pulse Rate 91 Pulse Rate [Left P ulse Oximeter] Pulse Rate [Right Radial] Respiratory Rate 18 Blood Pressure [Le ft Arm] Pulse Oximetry 90 90 Oxygen Delivery Me thod Room Air Oxygen Flow Rate 0 07/08/23 10:49 Temperature 98.3 F Pulse Rate Pulse Rate [Left P ulse Oximeter] 102 H Pulse Rate [Right Radial] Respiratory Rate 20 Blood Pressure [Le ft Arm] 120/66 Pulse Oximetry 90 Oxygen Delivery Me thod Nasal Cannula Oxygen Flow Rate 2 Documenting provider has reviewed patient's vital signs: yes Labs Labs: Laboratory Results - last 24 hr 07/07/23 07/08/23 07/08/23 21:10 05:48 08:14 WBC 6.07 RBC 2.99 L Hgb 8.9 L Hct 27.6 L MCV 92 MCH 30 MCHC 32 Plt Count 362 Potassium 3.4 L Magnesium 1.6 Troponin I < 0.01 L < 0.01 L Lab Acknowledgement Test Added Imaging Echo: Radiologist's impression: Transthoracic echocardiogram 06/24/2023 demonstrated ejection fraction of 60% with normal LV function and right ventricular function. Minimal valvular disease only.
--- NOTE | 2023-07-08 14:44 | PC.SOCIAL ---
Met with pt and pt's daughter in room to discuss discharge plans. Pt is fine with daughter being present for discussion. Daughter has concerns for pt's nutritional status. Informed daughter that this worker could have Nutrition Services come in and discuss diet and nutritional supplements. Daughter states that the diet does not help and states she would like to speak with MD regarding a feeding tube. Briefly discussed hospice services and offered to provide information. Pt is not wanting information on hospice services and states that she has an oncologist in [place] that she is working on treatments with at this time. Pt's daughter informs that she was not aware that hospice was discussed, pt informs daughter that she does not want hospice. Informed pt and daughter that this worker will have MD come in and discuss feeding tube and hospice services. Provided update to MD, MD will go discuss with pt and family. Follow up visit with pt in the afternoon. Pt was alone when this worker met with her. Informed pt that this worker was following up to see if pt had any other questions or needs after speaking with MD. Pt states she does not have any further questions. Pt shares information about family conflict between her children and her . Pt states that her is not caring towards her, however, pt is feeling safe at home. Offered therapy resources, which pt declined. Informed pt that Social Work is available if she has any other questions or needs. Social work will follow up as needed.
[2023-07-08] MEDS: POTASSIUM CHLORIDE 10 MEQ/100 ML PIGGYBACK 100 MEQ IVPB (16:33)
[2023-07-08] MEDS: OLANZapine 5 MG TAB.RAPDIS PO (17:38)
--- NOTE | 2023-07-08 18:09 | PC.NURSE ---
Pt alert and oriented. Pt had no complaints of pain. Pt SBA in room. Pt?s O2 saturations were decreased, and Pt put back on oxygen; Pt had between 0-2L's during shift with saturations in low 80?s-low 90?s.?Pt had visitors mid morning.
--- NOTE | 2023-07-08 18:29 | PC.NURSE ---
Pt up walking in halls x 2 during shift.
[2023-07-08] MEDS: BENZONATATE 100 MG CAPSULE PO (20:51)
[2023-07-08] MEDS: ENOXAPARIN 40 MG/0.4 ML INJ SUBCUT (20:51)
[2023-07-08] MEDS: OXYCODONE 5 MG TABLET PO (21:46)
[2023-07-08] MEDS: ERTAPENEM 1 GM in 0.9 % SODIUM CHLORIDE Mini-bag 100 ML IVPB (21:47)
[2023-07-09] VITALS (8 sets, daily range): BP systolic 104–139; BP diastolic 57–97; PULSE 90–99; RESP 16–18; TEMP 36.9–37.2; O2SAT 88–93
--- NOTE | 2023-07-09 06:24 | PC.NURSE ---
End of Shift: Pt appropriate, pleasant and cooperative throughout shift. Denied any pain but appeared fatigued. Remains SOB upon exertion, required 1L NC overnight. IV port heparinized per order.
[2023-07-09] MEDS: ONDANSETRON 2 MG/ML inj 4 MG IVP (08:59)
[2023-07-09 09:21] LABS: Hematocrit 30.3 % (33.0-51.0); Hemoglobin* 9.9 gm/dL (12.0-16.0); Mean Corpuscular HGB Conc 33 gm/dL (32-36); Mean Corpuscular Hemoglobin 30 pg (26-34); Mean Corpuscular Volume 92 fL (80-100); Platelet Count* 346 K/uL (140-440); Red Blood Count 3.28 m/uL (4.00-5.20); White Blood Count* 6.33 K/uL (4.50-11.00)
[2023-07-09 09:29] LABS: Slide Review Reflex No
[2023-07-09 09:30] LABS: Chloride* 100 mmol/L (96-114); Sodium* 138 mmol/L (135-149)
[2023-07-09 09:31] LABS: Albumin* 2.9 g/dL (3.3-5.0); Potassium* 3.3 mmol/L (3.6-5.1)
[2023-07-09 09:33] LABS: Creatinine* 0.5 mg/dL (0.5-1.5); Est. Creatinine Clearance* 33.84; Estimated Glomerular Filt Rate 99 ml/min
[2023-07-09 09:34] LABS: Anion Gap 7 mEq/L (7-15); Blood Urea Nitrogen* 5 mg/dL (7-30); Calcium* 8.6 mg/dL (8.4-10.6); Carbon Dioxide* 31 mmol/L (20-32); Glucose* 89 mg/dL (60-115); Phosphorus* 2.7 mg/dL (2.5-4.5)
[2023-07-09] MEDS: DIGOXIN 250 MCG TABLET PO (10:48)
[2023-07-09] MEDS: IPRAT-ALBUT 0.5-2.5 MG/3 ML NEB 1 NEB IH ×4 (10:48→21:12)
[2023-07-09] MEDS: VANCOMYCIN 125 MG CAPSULE PO (10:48)
[2023-07-09] MEDS: BENZONATATE 100 MG CAPSULE PO (10:49)
[2023-07-09] MEDS: LORazepam 0.5 MG TABLET PO ×2 (10:49→21:11)
[2023-07-09] MEDS: AMLODIPINE 5 MG TABLET 2.5 MG PO (10:49)
[2023-07-09] MEDS: HEPARIN 500 UNIT/5 ML SYRINGE IVF ×2 (10:50→21:11)
[2023-07-09] MEDS: SODIUM CHLORIDE 0.9 % (FLUSH) 10 ML SYRINGE 5 ML IVF ×2 (10:50→21:11)
--- NOTE | 2023-07-09 14:19 | P.IMPN_ITS ---
Progress Note: A&P Assessment and plan (1) Small cell carcinoma of lung: Problem details: Stage IIIB. Recently completed round of palliative radiation therapy and chemotherapy. She states she has no other treatment options at this time. Desires full resuscitation in event of cardiopulmonary demise but is inclined to change paradigm of care to reflect comfort focus measures only in the future. Tells me she wants to live at least for the next 2 weeks so she can attend her grandson's wedding. Status: Acute (2) Increased nausea and vomiting: Problem details: Acute on chronic. Certainly contributes to her cachexia. Status: Acute (3) Hypokalemia: Problem details: Requiring additional potassium supplementation. Status: Acute (4) Atrial fibrillation with RVR: Problem details: - appears to be a new diagnosis. Holter monitor completed in 07/2022 showing NSR and episodes of atrial tachycardia. EKG during most recent hospital stay showing AFib. ECHO 06/24/23 shows normal global systolic function, EF 60%, normal global systolic RV function, no stenosis, no regurgitation. Rhythm noted is sinus with frequent PACs/consecutive PACs versus brief atrial fibrillation. - noted to have a variable rate with increased tachycardia noted with outside stressors - home metoprolol extended dose was changed to short-acting metoprolol 50 mg b.i.d. and was noted to be appropriately rate responsive. Digoxin 250 mcg daily was also initiated and continued at time of discharge. She was continued on amlodipine 2.5 mg daily. Remained vitally stable. - per [facility] curbside consult on 06/24/23, patient would benefit from anticoagulation for stroke prevention as R ICA aneurysm is not a contraindication to this. - we discussed anticoagulation including risks and benefits (no significant finding of history of GI bleed per chart review other than single episode of bloody diarrhea postoperatively, external hemorrhoids). Patient and daughter, Saira, verbalized preference to take this information back to her PCP prior to initiating anticoagulation. On day of discharge, reminded to follow up with PCP and/or Cardiology regarding initiation of anticoagulation. During her hospital stay, she was otherwise maintained on Lovenox. Status: Acute (5) Pneumonia: Problem details: - Multifocal pneumonia empirically treated as healthcare acquired source initially with IV ertapenem and vancomycin during recent hospitalization 06/24- 06/27/23. These were discontinued as suspected drug related neutropenia, hypokalemia, and drug induced fever were noted, in setting of immunocompromised state related to active cancer treatment with chemotherapy and radiation. After reviewing her multiple antibiotic allergies with pharmacy, decision was made to transition to oral azithromycin to complete a 7 day course of antibiotic therapy. - restarted on IV ertapenem 07/05/2023 with increasing pulmonary infiltrate co mpared to prior radiographic studies. Will attempt to complete a 10 day course of IV ertapenem. Will initiate efforts to transition to outpatient IV ertapenem after she is discharged from the hospital - Scheduled DuoNebs q.i.d., albuterol nebs q.4 hours p.r.n., and incentive spirometry utilized. Status: Acute (6) Cancer cachexia: Problem details: Will restart olanzapine 2.5 mg once daily. Consider increasing dose. Consider adding mirtazapine 7.5 mg once daily. Status: Acute (7) Hypomagnesemia: Problem details: Requiring magnesium supplementation. Status: Acute (8) C. difficile colitis: Problem details: - Recalcitrant, has been on oral daily vancomycin for suppression for 2 years - Asymptomatic, continue current oral vanco regimen Status: Acute (9) Pulmonary cachexia due to COPD: Status: Acute (10) COPD (chronic obstructive pulmonary disease): Problem details: Continue nebs, pulmonary support. Status: Acute Plan 1. Reviewed impression with patient and her . Answered their questions. 2. Continue with current efforts. 3. Initiate completion of forms so patient can transition to outpatient daily infusion of ertapenem to complete a full 10 day course of the same. 4. Discuss the eventuality of having to consider hospice services. They will discuss this among themselves. 5. Patient interested acquiring a wig so she can go to her grandson's wedding in about 10 days. Facilitated her going to the [facility] or cancer in infusion center where they have weeks that she can try. 6. Potassium supplementation. Encourage patient to sip on potassium bicarb. Will also administer 40 mEq of potassium IV. 7. Continue with efforts to increase with mobilization. 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 The patient had recent hospitalization [from 06/24-06/27/2023] and treated for pna with vancomycin, ertapenem, and a zithromycin. She developed drug induced fever and neutropenia and thus ertapenem/vanco de-escalated with azithromycin. She was seen in clinic yesterday for post hospital follow up. She continued to endorse fatigue and returned to ED. In the ED the patient was afebrile, normal WBC, procal 0.11. CXR with RLL consolidation. She required 2 liters of supplemental oxygen at 96% (hx of COPD). She denied chest pain and pressure. She was admitted for further evaluation. Patient informs me this morning that her chronic nausea and intermittent vomiting continues to be well managed. She feels better today than yesterday. Still has a sense of general weakness but is much improved. Denies dyspnea. Denies chest discomfort at this time. She is a more tolerant of increased activities today. More interested in trying to eat and drink today. Tolerating olanzapine and thinks her appetite is actually a little improved. Exam Narrative: Exam Narrative: Examine her in her hospital room with her . Vision and hearing are grossly normal. Alert and oriented to self, place, time, situation. Not so teary eyed today. Better able to engage in conversation. Cachectic appearance. Heart tones with regular rhythm. Rales right base otherwise lungs clear today. Rhonchi clear with coughing. No wheezing. Abdomen with active bowel sounds, soft. No edema. No focal motor neurologic deficits. Const: Vital Signs, click to edit/add: Vital Signs - 24 hr 07/08/23 15:00 07/08/23 15:00 07/08/23 15:04 Temperature 98.3 F Pulse Rate Pulse Rate [Left P ulse Oximeter] 97 Respiratory Rate 20 20 Blood Pressure [Le ft Arm] 116/68 Pulse Oximetry 90 90 91 Oxygen Delivery Me thod Nasal Cannula Nasal Cannula Oxygen Flow Rate 1 1 07/08/23 19:00 07/08/23 23:00 07/08/23 23:00 Temperature 98.7 F Pulse Rate Pulse Rate [Left P ulse Oximeter] 100 98 Respiratory Rate 18 18 Blood Pressure [Le ft Arm] 116/14 L Pulse Oximetry 94 89 Oxygen Delivery Me thod Room Air Oxygen Flow Rate 07/08/23 23:00 07/08/23 23:00 07/09/23 03:00 Temperature 98.7 F 98.6 F Pulse Rate Pulse Rate [Left P ulse Oximeter] 98 98 Respiratory Rate 18 18 18 Blood Pressure [Le ft Arm] 112/63 113/58 L Pulse Oximetry 89 89 93 Oxygen Delivery Me thod Room Air Room Air Room Air Oxygen Flow Rate 07/09/23 08:48 07/09/23 08:48 07/09/23 08:48 Temperature 98.9 F Pulse Rate Pulse Rate [Left P ulse Oximeter] 93 Respiratory Rate 18 18 Blood Pressure [Le ft Arm] 121/74 Pulse Oximetry 89 89 89 Oxygen Delivery Me thod Room Air Room Air Oxygen Flow Rate 0 07/09/23 10:48 07/09/23 11:00 Temperature 98.8 F Pulse Rate 93 Pulse Rate [Left P ulse Oximeter] 97 Respiratory Rate 18 Blood Pressure [Le ft Arm] 104/57 L Pulse Oximetry 88 Oxygen Delivery Me thod Room Air Oxygen Flow Rate Documenting provider has reviewed patient's vital signs: yes Labs Labs: Laboratory Results - last 24 hr 07/09/23 09:15 WBC 6.33 RBC 3.28 L Hgb 9.9 L Hct 30.3 L MCV 92 MCH 30 MCHC 33 Plt Count 346 Sodium 138 Potassium 3.3 L Chloride 100 Carbon Dioxide 31 Anion Gap 7 BUN 5 L Creatinine 0.5 Estimated Creat Clear 33.84 Estimated GFR 99 Glucose 89 Calcium 8.6 Phosphorus 2.7 Albumin 2.9 L
[2023-07-09] MEDS: POTASSIUM BICARB 25 MEQ EFFERVESCENT TAB PO (15:22)
[2023-07-09] MEDS: POTASSIUM CHLORIDE 10 MEQ/100 ML PIGGYBACK 100 MEQ IVPB ×4 (15:22→19:54)
[2023-07-09] MEDS: ERTAPENEM 1 GM in 0.9 % SODIUM CHLORIDE Mini-bag 100 ML IVPB (16:39)
[2023-07-09] MEDS: ACETAMINOPHEN 325 MG TABLET 650 MG PO (16:50)
--- NOTE | 2023-07-09 17:47 | PC.NURSE ---
Pt alert and oriented. Pt SBA. Pt had no complaints of pain; Pt had head see EMAR for intervention. Pt had family at bedside for most of shift. Pt up in hallways walking x 1. Pt using aerobika frequently through out day.?
[2023-07-09] MEDS: OLANZapine 5 MG TAB.RAPDIS PO (18:06)
[2023-07-09] MEDS: ENOXAPARIN 40 MG/0.4 ML INJ SUBCUT (21:11)
[2023-07-10] VITALS: O2SAT 88
[2023-07-10 03:00] VITALS: BP 136/77; PULSE 94; RESP 18; TEMP 37.1; O2SAT 90
[2023-07-10] MEDS: SODIUM CHLORIDE 0.9 % (FLUSH) 10 ML SYRINGE 5 ML IVF ×4 (05:45→13:48)
[2023-07-10] MEDS: HEPARIN 500 UNIT/5 ML SYRINGE IVF ×3 (05:45→13:47)
[2023-07-10 06:23] LABS: HCO3 VBG 32 mmol/L (21-28); PCO2 VBG 46 mmHG (40-50); PO2 VBG 39.6 mmHG (25-47); pH VBG 7.451 (7.32-7.43)
[2023-07-10 06:38] LABS: Hematocrit 26.5 % (33.0-51.0); Hemoglobin* 8.7 gm/dL (12.0-16.0); Mean Corpuscular HGB Conc 33 gm/dL (32-36); Mean Corpuscular Hemoglobin 30 pg (26-34); Mean Corpuscular Volume 93 fL (80-100); Platelet Count* 324 K/uL (140-440); Red Blood Count 2.86 m/uL (4.00-5.20)
[2023-07-10 06:42] LABS: Slide Review Reflex No
[2023-07-10 06:43] LABS: Chloride* 102 mmol/L (96-114); Sodium* 138 mmol/L (135-149)
[2023-07-10 06:45] LABS: Creatinine* 0.5 mg/dL (0.5-1.5); Est. Creatinine Clearance* 33.46; Estimated Glomerular Filt Rate 99 ml/min
[2023-07-10 06:46] LABS: Anion Gap 5 mEq/L (7-15); Blood Urea Nitrogen* 4 mg/dL (7-30); Calcium* 8.4 mg/dL (8.4-10.6); Carbon Dioxide* 31 mmol/L (20-32); Glucose* 78 mg/dL (60-115)
--- NOTE | 2023-07-10 06:56 | PC.NURSE ---
A&O, pleasant and cooperative. VSS w/ sats 88% or > on room air. Denies pain or SOB. SBA to bathroom. Pt quite sleepy and slept for most of the shift.
[2023-07-10 08:25] VITALS: RESP 18; O2SAT 88
[2023-07-10 08:30] VITALS: BP 112/64; PULSE 98; RESP 18; TEMP 36.8; O2SAT 88
[2023-07-10 08:36] VITALS: PULSE 98
[2023-07-10] MEDS: DIGOXIN 250 MCG TABLET PO (08:36)
[2023-07-10] MEDS: LORazepam 0.5 MG TABLET PO (08:36)
[2023-07-10] MEDS: IPRAT-ALBUT 0.5-2.5 MG/3 ML NEB 1 NEB IH ×2 (08:36→13:06)
[2023-07-10] MEDS: BENZONATATE 100 MG CAPSULE PO (08:36)
[2023-07-10] MEDS: VANCOMYCIN 125 MG CAPSULE PO (08:36)
[2023-07-10] MEDS: AMLODIPINE 5 MG TABLET 2.5 MG PO (08:37)
[2023-07-10] MEDS: POTASSIUM CHLORIDE 10 MEQ CAPSULE ER 20 MEQ PO (10:44)
[2023-07-10 10:57] VITALS: BP 138/72; PULSE 100; RESP 18; TEMP 36.8; O2SAT 89
[2023-07-10] MEDS: ERTAPENEM 1 GM in 0.9 % SODIUM CHLORIDE Mini-bag 100 ML IVPB (13:06)
--- NOTE | 2023-07-10 15:38 | PC.NURSE ---
Pt alert and oriented. Pt SBA. Pt had no complaints of pain. Pt had family at bedside for most of morning. Pt using aerobika frequently through out day. Pt's port de-accessed and IV removed. Pt discharged home with .
--- NOTE | 2023-07-10 15:41 | PC.NURSE ---
Pt will return for next 5 days for antibiotic infusion at 1300; Pt's informed staff that Pt has an appointment with oncology on Saturday so Pt will not be in until after 1400.
--- NOTE | 2023-08-16 20:06 | P.DS_ITS ---
DS: Providers Provider Date Seen: 07/10/23 Date of admission: 07/06/23 22:20 Primary care physician: Willam Jaramillo MD Admitting Clinician: Charlie Castrejon MD Consults: 07/06/23 17:05 Consult to Respiratory Therapy [CONS] Routine Comment: Reason(s) for RT Consult:: Consult Attending Physician on discharge: Kev Ledesma MD Date of Discharge: 07/10/23 DS: Diagnosis Discharge Diagnosis (1) Pneumonia: Status: Acute Problem details: - Multifocal pneumonia empirically treated as healthcare acquired source initially with IV ertapenem and vancomycin during recent hospitalization 06/24- 06/27/23. These were discontinued as suspected drug related neutropenia, hypokalemia, and drug induced fever were noted, in setting of immunocompromised state related to active cancer treatment with chemotherapy and radiation. After reviewing her multiple antibiotic allergies with pharmacy, decision was made to transition to oral azithromycin to complete a 7 day course of antibiotic therapy. - restarted on IV ertapenem 07/05/2023 with increasing pulmonary infiltrate compared to prior radiographic studies. Will attempt to complete a 10 day course of IV ertapenem. Will initiate efforts to transition to outpatient IV ertapenem after she is discharged from the hospital - Scheduled DuoNebs q.i.d., albuterol nebs q.4 hours p.r.n., and incentive spirometry utilized. (2) COPD (chronic obstructive pulmonary disease): Status: Acute Problem details: Continue nebs, pulmonary support. (3) Small cell carcinoma of lung: Status: Acute Problem details: Stage IIIB. Recently completed round of palliative radiation therapy and chemotherapy. She states she has no other treatment options at this time. Desires full resuscitation in event of cardiopulmonary demise but is inclined to change paradigm of care to reflect comfort focus measures only in the future. Tells me she wants to live at least for the next 2 weeks so she can attend her grandson's wedding. (4) Cancer cachexia: Status: Acute Problem details: Will restart olanzapine 2.5 mg once daily. Consider increasing dose. Consider adding mirtazapine 7.5 mg once daily. (5) Increased nausea and vomiting: Status: Acute Problem details: Acute on chronic. Certainly contributes to her cachexia. (6) Compensated metabolic alkalosis: Status: Acute Problem details: due to nausea, vomiting (7) Hypokalemia: Status: Acute Problem details: - Due to gastrointestinal loss from nausea and vomiting as well as decreased oral intake from cachexia - Requiring additional potassium supplementation. (8) Hypomagnesemia: Status: Acute Problem details: Requiring magnesium supplementation. (9) Pulmonary cachexia due to COPD: Status: Acute (10) Neutropenia: Status: Acute Problem details: -WBC noted to downtrend, eventually to 1.84. IV antibiotics were discontinued, WBC noted to improve. Follow-up with PCP to monitor. (11) C. difficile colitis: Status: Acute Problem details: - Recalcitrant, has been on oral daily vancomycin for suppression for 2 years - Asymptomatic, continue current oral vanco regimen (12) Atrial fibrillation with RVR: Status: Acute Problem details: - appears to be a new diagnosis. Holter monitor completed in 07/2022 showing NSR and episodes of atrial tachycardia. EKG during most recent hospital stay showing AFib. ECHO 06/24/23 shows normal global systolic function, EF 60%, normal global systolic RV function, no stenosis, no regurgitation. Rhythm noted is sinus with frequent PACs/consecutive PACs versus brief atrial fibrillation. - noted to have a variable rate with increased tachycardia noted with outside stressors - home metoprolol extended dose was changed to short-acting metoprolol 50 mg b.i.d. and was noted to be appropriately rate responsive. Digoxin 250 mcg daily was also initiated and continued at time of discharge. She was continued on amlodipine 2.5 mg daily. Remained vitally stable. - per [facility] curbside consult on 06/24/23, patient would benefit from anticoagulation for stroke prevention as R ICA aneurysm is not a contraindication to this. - we discussed anticoagulation including risks and benefits (no significant finding of history of GI bleed per chart review other than single episode of bloody diarrhea postoperatively, external hemorrhoids). Patient and daughter, Saira, verbalized preference to take this information back to her PCP prior to initiating anticoagulation. On day of discharge, reminded to follow up with PCP and/or Cardiology regarding initiation of anticoagulation. During her hospital stay, she was otherwise maintained on Lovenox. 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 The patient had recent hospitalization [from 06/24-06/27/2023] and treated for pna with vancomycin, ertapenem, and azithromycin. She developed drug induced fever and neutropenia and thus ertapenem/vanco de-escalated with azithromycin. She was seen in clinic yesterday for post hospital follow up. She continued to endorse fatigue and returned to ED. In the ED the patient was afebrile, normal WBC, procal 0.11. CXR with RLL consolidation. She required 2 liters of supplemental oxygen at 96% (hx of COPD). She denied chest pain and pressure. She was admitted for further evaluation. It was determined that patient has persistent hospital acquired pneumonia. Was started on IV ertapenem again. Responded well to this. Briefly required oxygen supplementation in hospital. Her chronic nausea and intermittent vomiting gradually improved with modification of medications, treatment of pneumonia and hypoxia, and hydration. Still has a sense of general weakness but is much improved. Denies dyspnea. Denies chest discomfort at this time. She is a more tolerant of increased activities. More interested in trying to eat and drink. Tolerating olanzapine and thinks her appetite is actually improved. The patient indicates her goal is to try to live at least 2 additional weeks so that she can attend her grandson's wedding. She will continue to work with her oncologist another healthcare providers in the outpatient setting to try to achieve these goals. Status at Discharge Functional status at discharge: uses cane/walker Overall status at discharge: patient is progressing back to baseline Time Spent with Patient Time attestation: Total time spent providing and/or coordinating discharge services: Time spent: Greater than 30 minutes Exam Narrative: Exam Narrative: Examine her in her hospital room with her . Vision and hearing are grossly normal. Alert and oriented to self, place, time, situation. Not so teary eyed today. Better able to engage in conversation. Cachectic appearance. Heart tones with regular rhythm. Rales right base otherwise lungs clear today. Rhonchi clear with coughing. No wheezing. Abdomen with active bowel sounds, soft. No edema. No focal motor neurologic deficits. DS: Data Imaging CT angiogram of chest: Attestation: I have reviewed the pertinent imaging results. Radiologist's impression: 07/05/2023 IMPRESSIONS: 1. No CT evidence of acute pulmonary emboli seen. 2. Patchy consolidation is seen in the mid lower lung zones bilaterally with a predominance in the right middle lobe and right lower lobe. The degree of consolidation is increased from prior examination. Findings likely due to pneumonia and evaluation with bronchoscopy may be helpful. 3. In the superior segment of the left lower lobe, there is a cavitary lesion with spiculated margins abutting the left major fissure measuring 1.8 cm. The appearance is similar to prior examination. Evaluation with biopsy or PET scan is recommended when the patient is clinically stable. Discharge Plan Discharge Disposition: Home, Self-Care Date of Admission: 07/06/23 22:20 Attending Provider on Discharge: Kev Ledesma Primary Care Provider: Willam Jaramillo Condition: Improved Anticipated Discharge Date/Time: 07/10/23 11:30 Discharge Medications: New potassium chloride 10 mEq Capsule, Extended Release 20 meq PO DAILYWM 30 Days Qty: 30 0RF acetaminophen 325 mg Tablet 650 mg PO Q6H PRN30 Days Qty: 100 0RF benzonatate 100 mg Capsule 100 mg PO TID 14 Days Qty: 42 0RF ondansetron 4 mg Tablet,Disintegrating 4 mg PO Q6H PRN14 Days Qty: 20 1RF ipratropium-albuterol 0.5 mg-3 mg(2.5 mg base)/3 mL Solution For Nebulization 3 ml inhalation QID 30 Days Qty: 120 1RF melatonin 3 mg Tablet 3 mg PO HS PRN30 Days Qty: 30 0RF Continued vancomycin 125 mg capsule 125 mg PO DAILY Patient Comments: TAKE ONE CAPSULE BY MOUTH EVERY DAY rosuvastatin 20 mg tablet 20 mg PO DAILY prochlorperazine maleate 10 mg tablet 10 mg PO Q6H PRN (Reason: nausea) oxycodone-acetaminophen 5-325 mg tablet 0.5 tab PO Q6H PRN amlodipine 2.5 mg tablet 2.5 mg PO DAILY digoxin 250 mcg (0.25 mg) Tablet 250 mcg PO DAILY Qty: 30 0RF metoprolol tartrate 50 mg Tablet 50 mg PO BID Qty: 60 0RF Magic Mouthwash (Lidocaine/Benadryl/Maalox) 120 mL suspension 5 ml PO QID PRNQty: 120 No Action azithromycin 500 mg tablet 500 mg PO DAILY 7 Days Qty: 7 0RF prednisone 20 mg tablet 20 mg PO BID Qty: 10 0RF Discharge Orders: Discharge Order (Routine); Ordered 07/10/23 Ordered By: Kev Ledesma Patient Education: Benzonatate (By mouth) (Elvi Horan), Acetaminophen (By mouth), Ondansetron (By mouth), Ipratropium/Albuterol (By breathing), Ertapenem (By injection) (INVanz), Melatonin (By mouth), Potassium Citrate (By mouth), COPD (Chronic Obstructive Pulmonary Disease) (DC), Bacterial Pneumonia (DC) Additional Instructions: 1. Follow-up with oncologist as planned and as needed; 2. Follow-up with primary care physician in 5-10 days with pre-visit CBC, Basic Metabolic Panel, and magnesium level; 3. Aerobika device use after every nebulizer administration and as needed throughout the day; 4. IV antibiotic Ertapenem 1 g once daily for 5 additional days after discharge from the hospital at the [facility]. Activity Level: Activity as Tolerated Discharge Diet: Regular and High Protein/High Calorie Follow Up Appointments: Willam Jaramillo MD [Primary Care Provider] - 07/22/23 2:55 pm (SaturdayJuly 22 at 2:55 pm) Pao Barnes PA-C [Physician Laboratory Chief] - Forms: [employer] Info Instructions
== END 2023-07-10 13:59 | disposition home or self-care (01) | DRG 190 ==
LOC: ED 17:49 → MEDSURG 19:00
PROVIDERS: Internal Medicine; Admitting Provider Hospitalist; Emergency Provider Family Medicine; PCP Family Medicine; Visit Provider Hospitalist
DX: J44.0 Chronic obstructive pulmonary disease with (acute) lower respiratory infection (principal); J18.9 Pneumonia, unspecified organism; I48.20 Chronic atrial fibrillation, unspecified; C34.92 Malignant neoplasm of unspecified part of left bronchus or lung; R64 Cachexia; Z68.1 Body mass index [BMI] 19.9 or less, adult; E87.3 Alkalosis; A04.71 Enterocolitis due to Clostridium difficile, recurrent; Y95 Nosocomial condition; R09.02 Hypoxemia; R11.2 Nausea with vomiting, unspecified; E87.6 Hypokalemia; E86.0 Dehydration; E83.42 Hypomagnesemia; D70.9 Neutropenia, unspecified; Z79.2 Long term (current) use of antibiotics; I67.1 Cerebral aneurysm, nonruptured; I73.9 Peripheral vascular disease, unspecified
CPT/HCPCS: 36415; 71045; 71275; 80048; 80053; 80069; 80076; 81003; 82803; 83605; 83690; 83735; 83880; 84100; 84132; 84145; 84484; 85025; 85027; 86140; 87040; 87631; 93005; 94640; 94664; 94761; 99285; G0378; A9270; J0780; J1335; J1642; J1650; J2270; J2405; J3010; J3475; J3480; J7030; J7120; Q9967

== ENCOUNTER 2023-07-15 13:00 | Outpatient (RCR) | payer MEDICARE, OTHER, SELFPAY ==
[2023-07-02 11:40] VITALS: BP 130/82; PULSE 72; RESP 16; TEMP 36.3; O2SAT 92
[2023-07-02] MEDS: 0.9 % SODIUM CHLORIDE 1000 ml 1,000 ML IV (12:00)
[2023-07-02 12:19] LABS: Creatinine* 0.8 mg/dL (0.5-1.5); Estimated Glomerular Filt Rate 78 ml/min
[2023-07-02] MEDS: ONDANSETRON 2 MG/ML inj 4 MG IV (12:45)
--- NOTE | 2023-07-02 14:57 | ONC.NURNOTE ---
Pt sent over from [facility] for IVF and creatinine. Pt nauseated upon arrival. Called radiation for antiemetic, order received for zofran and given. Pt also chilled during infusion, no fever. Lab results faxed to radiation.
[2023-07-11 13:45] VITALS: BP 104/69; PULSE 84; RESP 16; TEMP 36.6; O2SAT 91
[2023-07-11] MEDS: ERTAPENEM 1 GM in 0.9 % SODIUM CHLORIDE Mini-bag 100 ML IVPB (14:00)
[2023-07-11] MEDS: SODIUM CHLORIDE 0.9 % (FLUSH) 10 ML SYRINGE IVF (14:33)
[2023-07-11] MEDS: 0.9 % SODIUM CHLORIDE 250 ml IV (14:35)
[2023-07-11] MEDS: HEPARIN 500 UNIT/5 ML SYRINGE IVF (14:43)
[2023-07-11 14:49] VITALS: BP 124/89; PULSE 80; RESP 16; TEMP 36.6; O2SAT 90
--- NOTE | 2023-07-11 15:57 | PC.NURSE ---
Pt arrived from OP infusion, PORT accessed per protocol without issues. IV abx admin, line flushed and PORT locked w/ heparin per order. Pt request site to be deaccessed as pt will at times bump line at home and cause pain. Pt understands that PORT will have to be accessed again for future infusions. Vitals stable, before and after admin of abx. Pt states chronic pain to chest from cancer diagnosis, tolerable. Pt pleasant. Pt will likely use her Emala cream before leaving home prior to next access versus using numbing spray. Pt left after IV abx, amb with out of unit.
[2023-07-12 13:30] VITALS: BP 119/82; PULSE 72; RESP 16; TEMP 36.9; O2SAT 91
[2023-07-12] MEDS: ERTAPENEM 1 GM in 0.9 % SODIUM CHLORIDE Mini-bag 100 ML IVPB (13:31)
[2023-07-12] MEDS: 0.9 % SODIUM CHLORIDE 250 ml IV (13:31)
[2023-07-12] MEDS: HEPARIN 500 UNIT/5 ML SYRINGE IVF (14:32)
[2023-07-12] MEDS: SODIUM CHLORIDE 0.9 % (FLUSH) 10 ML SYRINGE IVF (14:32)
[2023-07-13] MEDS: HEPARIN 500 UNIT/5 ML SYRINGE IVF (13:07)
[2023-07-13] MEDS: ERTAPENEM 1 GM in 0.9 % SODIUM CHLORIDE Mini-bag 100 ML IVPB (13:07)
[2023-07-13 13:15] VITALS: BP 110/65; PULSE 80; RESP 16; TEMP 36.6; O2SAT 92
[2023-07-14 13:00] VITALS: BP 107/75; PULSE 81; RESP 20; TEMP 36.5; O2SAT 94
[2023-07-14] MEDS: ERTAPENEM 1 GM in 0.9 % SODIUM CHLORIDE Mini-bag 100 ML IVPB (13:04)
[2023-07-15 13:13] VITALS: BP 124/82; PULSE 76; RESP 16; TEMP 36.9; O2SAT 95
[2023-07-15] MEDS: SODIUM CHLORIDE 0.9 % (FLUSH) 10 ML SYRINGE IVF (13:15)
[2023-07-15] MEDS: ERTAPENEM 1 GM in 0.9 % SODIUM CHLORIDE Mini-bag 100 ML IVPB (13:36)
[2023-07-15] MEDS: 0.9 % SODIUM CHLORIDE 250 ml IV (13:38)
--- NOTE | 2023-07-17 12:04 | ONC.NURNOTE ---
Patient called stating that her feet are so swollen from all of the fluids she got last week and wanted to know what she should do. [employer] recommended that she call her PCP and to get further instructions. Patient stated she has not seen her PCP since March but she has an appointment next week with Dr. Jaramillo in [facility] to follow up from her hospital stay. [employer] again encouraged patient to call her PCP as we do not have a provider here to speak with regarding this.
== END 2023-11-09 23:59 | disposition home or self-care (01) ==
LOC: CCIC 13:00
PROVIDERS: PCP Physician Assistant Medical; Referring Provider Physician Assistant Medical; Visit Provider Internal Medicine
DX: C34.92 Malignant neoplasm of unspecified part of left bronchus or lung (principal); J18.9 Pneumonia, unspecified organism
CPT/HCPCS: 36415; 82565; 96360; 96365; 96376; 99211; J1335; J1642; J2405; J7030; J7050

== ENCOUNTER 2023-08-08 08:32 | Emergency (ER) | payer MEDICARE, OTHER, SELFPAY ==
[2023-08-08 08:40] VITALS: BP 169/89; PULSE 86; RESP 18; TEMP 36.4; O2SAT 95; BMI 17.2
--- NOTE | 2023-08-08 08:58 | ED_ITS ---
HPI - General Adult General Time Seen by Provider: 08:58 Date Seen: 08/08/23 Chief complaint: Shortness of Breath/Dyspnea Stated complaint: lung cancer, possible pnemonia Time Seen by Provider: 08/08/23 08:58 Source: patient and RN notes reviewed Mode of arrival: ambulatory Limitations: no limitations History of Present Illness HPI narrative: Shmuel is a 73-year-old female with known underlying lung cancer receiving immunotherapy, 1st dose about a week ago, coming in with increasing shortness of breath and cough. She is concerned she could have pneumonia or an infection in her lungs. She had an immunotherapy about 11 days ago, was her first session. Has had some mild side effects intermittently but 4-5 days ago, started with increased shortness of breath, increased coughing, sometimes increased sputum, sometimes not, no fever, occasional nausea, appetite overall maybe down but has gained back 4 lbs. No blood in sputum. Feels some chest tightness with this. Has multiple antibiotic issues. 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 Related Data Home Medications Medication Instructions Recorded Confirmed rosuvastatin 20 mg tablet 20 mg PO DAILY 10/15/22 07/15/23 vancomycin 125 mg capsule 125 mg PO DAILY 10/15/22 07/15/23 amlodipine 2.5 mg tablet 2.5 mg PO DAILY 06/24/23 07/15/23 oxycodone-acetaminophen 5 mg-325 0.5 tab PO Q6H PRN 06/24/23 07/15/23 mg tablet prochlorperazine maleate 10 mg 10 mg PO Q6H PRN nausea 06/24/23 07/15/23 tablet Magic Mouthwash 5 ml PO QID PRN #120 mL 07/06/23 07/15/23 (Lidocaine/Benadryl/Maalox) 120 mL suspension Previous Rx's Medication Instructions Recorded digoxin 250 mcg (0.25 mg) tablet 250 mcg PO DAILY #30 tabs 06/27/23 metoprolol tartrate 50 mg tablet 50 mg PO BID #60 tabs 06/27/23 acetaminophen 325 mg tablet 650 mg (2 x 325 mg) PO Q6H PRN 30 07/10/23 days #100 tabs benzonatate 100 mg capsule 100 mg PO TID 14 days #42 caps 07/10/23 ipratropium 0.5 mg-albuterol 3 mg 3 ml inhalation QID 30 days #120 mL 07/10/23 (2.5 mg base)/3 mL nebulization soln melatonin 3 mg tablet 3 mg PO HS PRN 30 days #30 tabs 07/10/23 ondansetron 4 mg disintegrating 4 mg PO Q6H PRN 14 days #20 tabs 07/10/23 tablet potassium chloride 10 mEq 20 meq (2 x 10 mEq) PO DAILYWM 30 07/10/23 capsule,extended release days #30 caps azithromycin 500 mg tablet 500 mg PO DAILY 7 days #7 tabs 08/08/23 prednisone 20 mg tablet 20 mg PO BID #10 tabs 08/08/23 Allergies Allergy/AdvReac Type Severity Reaction Status Date / Time cefuroxime Allergy Severe Anaphylaxis Verified 07/15/23 13:30 codeine Allergy Severe Hypotension Verified 07/15/23 13:30 gatifloxacin [From Tequin] Allergy Severe Anaphylaxis Verified 07/15/23 13:30 hydrocodone [From Vicodin] Allergy Severe Hypertensio Verified 07/15/23 13:30 n iron [From Venofer] Allergy Severe Anaphylaxis Verified 07/15/23 13:30 meperidine [From Demerol] Allergy Severe Anaphylaxis Verified 07/15/23 13:30 morphine Allergy Severe SOB Verified 07/15/23 13:30 Penicillins Allergy Severe Anaphylaxis Verified 07/15/23 13:30 Quinolones Allergy Severe Anaphylaxis Verified 07/15/23 13:30 acetaminophen Allergy Unknown Unknown Verified 07/15/23 13:30 [From Panlor (hydrocodone-acetamin)] ampicillin [From Unasyn] Allergy Unknown Nausea Verified 07/15/23 13:30 diphenhydramine Allergy Unknown Unknown Verified 07/15/23 13:30 doxycycline Allergy Unknown other Verified 07/15/23 13:30 magnesium citrate Allergy Unknown Diarrhea Verified 07/15/23 13:30 metronidazole [From Flagyl] Allergy Unknown Flushing Verified 07/15/23 13:30 sulbactam [From Unasyn] Allergy Unknown Nausea Verified 07/15/23 13:30 sulfamethoxazole Allergy Unknown Nausea Verified 07/15/23 13:30 [From Sulfamethoxazole-Trimethoprim] trimethoprim Allergy Unknown Nausea Verified 07/15/23 13:30 [From Sulfamethoxazole-Trimethoprim] Review of Systems Status of ROS: Reports: 6 or more systems reviewed and unremarkable except as noted in History and below [facility] Medical History COPD (chronic obstructive pulmonary disease) ?J44.9 - Chronic obstructive pulmonary disease, unspecified (ICD-10) C. difficile colitis ?A04.72 - Enterocolitis due to Clostridium difficile, not specified as recurrent (ICD-10) Rash ?R21 - Rash and other nonspecific skin eruption (ICD-10) Radiation dermatitis ?L58.9 - Radiodermatitis, unspecified (ICD-10) Cerebral aneurysm ?I67.1 - Cerebral aneurysm, nonruptured (ICD-10) PVD (peripheral vascular disease) ?I73.9 - Peripheral vascular disease, unspecified (ICD-10) Intermittent atrial fibrillation ?I48.0 - Paroxysmal atrial fibrillation (ICD-10) Non-small cell carcinoma of left lung, stage 3 ?C34.92 - Malignant neoplasm of unspecified part of left bronchus or lung (ICD-10) Surgical History S/P colectomy ?Z90.49 - Acquired absence of other specified parts of digestive tract (ICD- 10) Social History What is your current living situation?: I presently have a place to live Problems where you live: no known problems Problems where you live details: no problems In the past 12 months, utilities in danger of being shut off: no In past 12 months, lack of transportation kept you from medical appts, meetings, work, or getting things needed for daily living: no In the past 12 mos, have been you worried that your food would run out before you had money to buy more?: never true In the past 12 mos, the food you bought just didn't last and you didn't have money to buy more?: never true Highest level of school completed/degree received: some college, no degree Smoking Status: Former smoker Do you use any of these nicotine containing products: None Second hand tobacco smoke exposure: Yes How often do you have a drink containing alcohol: monthly or less Alcohol type: beer How many standard drinks containing alcohol do you have on a typical day: 1 or 2 How often do you have six or more drinks on one occasion: Never AUDIT-C Alcohol total score: 1 Non-prescribed substance use: denies use Caffeine: Yes (not in the last 3 months) How often does anyone, including family, friends and others, physically hurt you : never How often does anyone, including family, friends and others, insult or talk down to you: never How often does anyone, including family, friends and others, threaten you with harm: never How often does anyone, including family, friends and others, scream or curse at you: never service: No Exam Const: Vital Signs, click to edit/add: Vital Signs - 24 hr 08/08/23 08:40 08/08/23 09:56 Temperature 97.6 F Pulse Rate [Right Pulse Oximeter] 86 Respiratory Rate 18 Blood Pressure [Ri ght Upper Arm] 169/89 H Pulse Oximetry 95 94 Oxygen Delivery Me thod Room Air Shmuel is a 73-year-old female that looks actually quite well in comparison to the other times I have seen her. She is well-kept, ambulatory into the ED of her own accord. Sclera clear, conjugate gaze, symmetrical facial function, speech normal. Neck is slender, no jugular venous distension no masses. Lungs with distant breath sounds, no wheezing noted no significant crackles, not tachypneic, no accessory muscle use. CV sounds regular, no murmur, normal S1- S2, no S3 or S4. Abdomen is soft, nontender nondistended, no masses. She has no lower extremity edema. Documenting provider has reviewed patient's vital signs: yes Course Course ED Course: She has had significant problems with pneumonia, will review her records. Will proceed with chest CT PE protocol, get appropriate labs. She needs no emergent interventions at this time. Overall she is much less ill than when I have seen her before. This could have component of COPD exacerbation, underlying pneumonia, cancer progression, consideration for thromboembolic disease with pulmonary emboli as well. Reevaluation(s) Time of Reevaluation #1: 11:10 Reevaluation #1: Brought patient CT report with her. There certainly are areas that are improving from prior but other areas that clinically look worse. Did discuss the dilemma with antibiotics. I do not think she requires IV antibiotics at this time. Thus really the only antibiotic she has tolerated disease with room ice in. Will send in a course of azithromycin. Given her COPD, will also cover with some prednisone. She is in agreement with this plan. Vital Signs Vital signs: Initial Vital Signs Temperature 97.6 F 08/08/23 08:40 Temperature Source Temporal Artery Scan 08/08/23 08:40 Pulse Rate 86 08/08/23 08:40 Respiratory Rate 18 08/08/23 08:40 Blood Pressure 169/89 H 08/08/23 08:40 Blood Pressure Mean 115 H 08/08/23 08:40 Blood Pressure Position Sitting 08/08/23 08:40 Pulse Oximetry 95 08/08/23 08:40 Oxygen Delivery Method Room Air 08/08/23 08:40 Vital Signs Temperature 97.6 F 08/08/23 08:40 Pulse Rate 86 08/08/23 08:40 Respiratory Rate 18 08/08/23 08:40 Blood Pressure 169/89 H 08/08/23 08:40 Pulse Oximetry 95 08/08/23 08:40 Oxygen Delivery Method Room Air 08/08/23 08:40 Temperature 97.6 F 08/08/23 08:40 Pulse Rate 86 08/08/23 08:40 Respiratory Rate 18 08/08/23 08:40 Blood Pressure 169/89 H 08/08/23 08:40 Pulse Oximetry 94 08/08/23 09:56 Oxygen Delivery Method Room Air 08/08/23 08:40 Medical Decision Making Lab Data Lab results reviewed: Yes I reviewed the patient's lab results Lab results narrative: D-dimer within age limits in certainly not concerning to a level that is worrisome. See her procalcitonin is normal but given her history, will have a low threshold to give this patient probably is a through mycin for lung infection. Await CT report. Troponin is normal. Labs: Lab Results 08/08/23 Range/Units 09:30 WBC 10.39 (4.50-11.00) K/uL RBC 3.70 L (4.00-5.20) m/uL Hgb 11.1 L (12.0-16.0) gm/dL Hct 35.3 (33.0-51.0) % MCV 95 (80-100) fL MCH 30 (26-34) pg MCHC 31 L (32-36) gm/dL RDW Coeff of Álvaro 15.4 (11.5-15.5) % Plt Count 212 (140-440) K/uL Neut % (Auto) 82.6 H (42.0-72.0) % Lymph % (Auto) 4.0 L (20-44) % [place] % (Auto) 12.2 H (0.0-11.0) % Eos % (Auto) 0.6 (0.0-7.0) % Baso % (Auto) 0.4 (0.0-3.0) % Neut # (Auto) 8.60 H (1.7-7.0) K/uL Lymph # (Auto) 0.40 L (0.90-2.90) K/uL [place] # (Auto) 1.30 H (0.00-0.90) K/UL Eos # (Auto) 0.06 (0.00-0.50) K/uL Baso # (Auto) 0.04 (0.00-0.30) K/uL Abs Immat Gran (auto) 0.02 (0.00-0.30) K/uL Imm/Tot Granulo (auto) 0.2 % D-Dimer Quant (PE/DVT) 0.69 H (0.00-0.50) ug/ml VBG pH 7.407 (7.32-7.43) VBG pCO2 43 (40-50) mmHG VBG pO2 42.2 (25-47) mmHG VBG HCO3 27 (21-28) mmol/L Sodium 137 (135-149) mmol/L Potassium 3.5 L (3.6-5.1) mmol/L Chloride 104 (96-114) mmol/L Carbon Dioxide 25 (20-32) mmol/L Anion Gap 8 (7-15) mEq/L BUN 10 (7-30) mg/dL Creatinine 0.4 L (0.5-1.5) mg/dL Estimated Creat Clear 35.88 Estimated GFR 104 ml/min Glucose 90 (60-115) mg/dL Lactate 0.8 (0.5-1.9) mmol/L Calcium 8.8 (8.4-10.6) mg/dL Magnesium 1.9 (1.5-2.6) mg/dL Total Bilirubin 1.4 (0.1-1.5) mg/dL AST 27 (12-35) U/L ALT 16 (4-35) U/L Alkaline Phosphatase 72 (40-150) U/L Troponin I < 0.01 L (0.01-0.04) ng/mL C-Reactive Protein 3.3 H (0.5-1.0) mg/dL NT-Pro-B Natriuret Pep 400 pg/mL Total Protein 6.7 (6.0-8.3) g/dL Albumin 3.8 (3.3-5.0) g/dL Procalcitonin 0.06 (<0.50) ng/mL SARS-CoV-2 (PCR) Negative SARS-CoV-2 (Negative) Influenza Type A (PCR) Negative PCR FLU A (Negative) Influenza Type B (PCR) Negative PCR FLU B (Negative) RSV (PCR) Negative PCR RSV (Negative) Imaging Data CT scan - chest: Attestation: I have reviewed the pertinent imaging results. Radiologist's impression: Patient: SHMUEL RIVERA Facility:?[facility] Patient ID:?[id number] Site Patient ID:?[id number]. Site :?[id number] Study:?CT Chest Angio 95CC ISOVUE 370-08/08/2023 9:55:14 AM Ordering Physician:Hannah Sanchez Final Report: INDICATION: Increased dyspnea and cough. Stage III lung cancer. COMPARISON: The most recent study of July 05, 2023 TECHNIQUE: : CT examination of the chest was performed with the uneventful intravenous administration of 100 cc of Isovue 3 7 while thin axial sections were obtained from above the apices of the lungs to the lung bases. Please note that all CT scans at this facility use dose modulation, iterative reconstruction, and/or weight-based dosing when appropriate to reduce radiation dose to as low as reasonably achievable. FINDINGS: : HEART and MEDIASTINUM: The heart size is top normal. There are mildly prominent lymph nodes especially medial aortopulmonic window and subcarinal. Similar to the prior study and may be related to the patient`s underlying malignancy PULMONARY ARTERIAL CIRCULATION: There is no visible intraluminal filling defect to suggest pulmonary embolus. LUNGS and PLEURAL SPACES: There is no pleural effusion on either side. No pneumothorax. Background pattern of significant emphysema. RIGHT LUNG: Consolidation at the right base mainly the right lower lobe and the right middle lobe. This is persistent but significantly improved since the prior study. This probably represents pneumonia. There are several focal opacities on the right above the basilar consolidation which have generally improved. There is 1 that is distinctly worse. This is best seen in the right lower lobe on axial image 102. This could be inflammatory or progressive malignant. LEFT LUNG: Basilar opacities are persistent but improved probably improving pneumonia. There is also improving airspace disease in the anterior left upper lobe. A cavitary nodular opacity in the superior segment of the left lower lobe is again identified. The central nodular component measures 1.3 centimeters and this is essentially unchanged. This probably represents the patient`s primary malignancy VISUALIZED UPPER ABDOMEN: The limited visualized upper abdominal structures appear normal. OSSEOUS STRUCTURES: Age-appropriate appearance. No acute fracture or destructive process. IMPRESSION: 1. There is no indication of acute pulmonary embolus. 2. Significant consolidation at the right base especially the right middle lobe and right lower lobe. This is likely pneumonia. This is persistent but improved since July 05, 2023. Opacities at the left base and in the anterior left upper lobe are likely inflammatory as well and have improved. 3. There are a few opacities on the right above the bases that have worsened. It is unclear whether these are inflammatory or malignant. They are favored to be inflammatory. Short-term follow-up is recommended 4. A cavitary lesion in the superior segment of the left lower lobe is essentially unchanged probably the patient`s primary malignancy. 5. Normal pleural spaces without evidence of pleural effusion or pneumothorax. 6. Mildly prominent mediastinal lymph nodes unchanged Please note that all CT scans at this facility use dose modulation, iterative reconstruction, and/or weight-based dosing when appropriate to reduce radiation dose to as low as reasonably achievable. Dictated by Avinash Gibson MD @ 08/08/2023 10:24:02 AM (Electronic Signature) ECG Data Attestation: I personally reviewed and interpreted this ECG as follows: (Sinus rhythm, 77 beats per minute. Nonspecific ST changes, no pattern for ischemia. Note patient is on digoxin. QT corrected 384 milliseconds.) Critical Care Time Critical Care Time Critical Care Time: No Discharge Plan Discharge Clinical Impression: COPD (chronic obstructive pulmonary disease), Pneumonia Patient Disposition: Home, Self-Care Condition: Stable Instructions: COPD (Chronic Obstructive Pulmonary Disease) (DC), Pneumonia (ED) Additional Instructions: Need to follow-up with your oncologist or primary care provider within the next week for re-evaluation. If you are worsening with increasing symptoms, develops fever, have worsening respiratory symptoms/shortness of breath, do recommend re- evaluation. Take the antibiotic an oral steroid as prescribed. Continue with your respiratory medicines as you normally do. Activity Level: Activity as Tolerated Prescriptions: New azithromycin 500 mg tablet 500 mg PO DAILY 7 Days Qty: 7 0RF prednisone 20 mg tablet 20 mg PO BID Qty: 10 0RF No Action vancomycin 125 mg capsule 125 mg PO DAILY Patient Comments: TAKE ONE CAPSULE BY MOUTH EVERY DAY rosuvastatin 20 mg tablet 20 mg PO DAILY prochlorperazine maleate 10 mg tablet 10 mg PO Q6H PRN (Reason: nausea) oxycodone-acetaminophen 5-325 mg tablet 0.5 tab PO Q6H PRN amlodipine 2.5 mg tablet 2.5 mg PO DAILY digoxin 250 mcg (0.25 mg) Tablet 250 mcg PO DAILY Qty: 30 0RF metoprolol tartrate 50 mg Tablet 50 mg PO BID Qty: 60 0RF Magic Mouthwash (Lidocaine/Benadryl/Maalox) 120 mL suspension 5 ml PO QID PRNQty: 120 potassium chloride 10 mEq Capsule, Extended Release 20 meq PO DAILYWM 30 Days Qty: 30 0RF acetaminophen 325 mg Tablet 650 mg PO Q6H PRN30 Days Qty: 100 0RF benzonatate 100 mg Capsule 100 mg PO TID 14 Days Qty: 42 0RF ondansetron 4 mg Tablet,Disintegrating 4 mg PO Q6H PRN14 Days Qty: 20 1RF ipratropium-albuterol 0.5 mg-3 mg(2.5 mg base)/3 mL Solution For Nebulization 3 ml inhalation QID 30 Days Qty: 120 1RF melatonin 3 mg Tablet 3 mg PO HS PRN30 Days Qty: 30 0RF Follow Up/Referrals: Willam Jaramillo MD [Primary Care Provider] - Stand Alone Forms: [facility] Info Instructions
--- NOTE | 2023-08-08 09:04 | CRLHL7_ITS ---
For Patients: As a result of the Century Cures Act, medical imaging exams and procedure reports are released immediately into your electronic medical record. You may view this report before your referring provider. If you have questions, please contact your health care provider. INDICATION: Increased dyspnea and cough. Stage III lung cancer. COMPARISON: The most recent study of July 05, 2023 TECHNIQUE: : CT examination of the chest was performed with the uneventful intravenous administration of 100 cc of Isovue 3 7 while thin axial sections were obtained from above the apices of the lungs to the lung bases. Please note that all CT scans at this facility use dose modulation, iterative reconstruction, and/or weight-based dosing when appropriate to reduce radiation dose to as low as reasonably achievable. FINDINGS: : HEART and MEDIASTINUM: The heart size is top normal. There are mildly prominent lymph nodes especially medial aortopulmonic window and subcarinal. Similar to the prior study and may be related to the patient`s underlying malignancy PULMONARY ARTERIAL CIRCULATION: There is no visible intraluminal filling defect to suggest pulmonary embolus. LUNGS and PLEURAL SPACES: There is no pleural effusion on either side. No pneumothorax. Background pattern of significant emphysema. RIGHT LUNG: Consolidation at the right base mainly the right lower lobe and the right middle lobe. This is persistent but significantly improved since the prior study. This probably represents pneumonia. There are several focal opacities on the right above the basilar consolidation which have generally improved. There is 1 that is distinctly worse. This is best seen in the right lower lobe on axial image 102. This could be inflammatory or progressive malignant. LEFT LUNG: Basilar opacities are persistent but improved probably improving pneumonia. There is also improving airspace disease in the anterior left upper lobe. A cavitary nodular opacity in the superior segment of the left lower lobe is again identified. The central nodular component measures 1.3 centimeters and this is essentially unchanged. This probably represents the patient`s primary malignancy VISUALIZED UPPER ABDOMEN: The limited visualized upper abdominal structures appear normal. OSSEOUS STRUCTURES: Age-appropriate appearance. No acute fracture or destructive process. IMPRESSION: 1. There is no indication of acute pulmonary embolus. 2. Significant consolidation at the right base especially the right middle lobe and right lower lobe. This is likely pneumonia. This is persistent but improved since July 05, 2023. Opacities at the left base and in the anterior left upper lobe are likely inflammatory as well and have improved. 3. There are a few opacities on the right above the bases that have worsened. It is unclear whether these are inflammatory or malignant. They are favored to be inflammatory. Short-term follow-up is recommended 4. A cavitary lesion in the superior segment of the left lower lobe is essentially unchanged probably the patient`s primary malignancy. 5. Normal pleural spaces without evidence of pleural effusion or pneumothorax. 6. Mildly prominent mediastinal lymph nodes unchanged Please note that all CT scans at this facility use dose modulation, iterative reconstruction, and/or weight-based dosing when appropriate to reduce radiation dose to as low as reasonably achievable. Dictated by Avinash Gibson MD @ 08/08/2023 10:24:02 AM (Electronically Signed)
[2023-08-08 09:35] LABS: HCO3 VBG 27 mmol/L (21-28); Lactate* 0.8 mmol/L (0.5-1.9); PCO2 VBG 43 mmHG (40-50); PO2 VBG 42.2 mmHG (25-47); pH VBG 7.407 (7.32-7.43)
[2023-08-08 09:37] LABS: Basophils Absolute Auto 0.04 K/uL (0.00-0.30); Basophils Percent Auto 0.4 % (0.0-3.0); Eosinophils Absolute Auto 0.06 K/uL (0.00-0.50); Eosinophils Percent Auto 0.6 % (0.0-7.0); Hematocrit 35.3 % (33.0-51.0); Hemoglobin* 11.1 gm/dL (12.0-16.0); Immature Granulocytes Abs Auto 0.02 K/uL (0.00-0.30); Immature Granulocytes Pct Auto 0.2 %; Mean Corpuscular HGB Conc 31 gm/dL (32-36); Mean Corpuscular Hemoglobin 30 pg (26-34); Mean Corpuscular Volume 95 fL (80-100); Monocytes Percent Auto 12.2 % (0.0-11.0); Neutrophils Percent Auto 82.6 % (42.0-72.0); Platelet Count* 212 K/uL (140-440); RDW Coefficient of Variation % 15.4 % (11.5-15.5); White Blood Count* 10.39 K/uL (4.50-11.00)
[2023-08-08 09:45] LABS: Slide Review Reflex No
[2023-08-08 09:56] VITALS: O2SAT 94
[2023-08-08 10:09] LABS: Albumin* 3.8 g/dL (3.3-5.0); Chloride* 104 mmol/L (96-114); Sodium* 137 mmol/L (135-149)
[2023-08-08 10:10] LABS: Potassium* 3.5 mmol/L (3.6-5.1)
[2023-08-08 10:12] LABS: Creatinine* 0.4 mg/dL (0.5-1.5); Est. Creatinine Clearance* 35.88; Estimated Glomerular Filt Rate 104 ml/min
[2023-08-08 10:13] LABS: Alanine Aminotransferase* 16 U/L (4-35); Alkaline Phosphatase* 72 U/L (40-150); Anion Gap 8 mEq/L (7-15); Aspartate Amino Transferase* 27 U/L (12-35); Bilirubin Total* 1.4 mg/dL (0.1-1.5); Blood Urea Nitrogen* 10 mg/dL (7-30); Carbon Dioxide* 25 mmol/L (20-32); Glucose* 90 mg/dL (60-115); Total Protein* 6.7 g/dL (6.0-8.3)
[2023-08-08 10:14] LABS: Calcium* 8.8 mg/dL (8.4-10.6); Magnesium* 1.9 mg/dL (1.5-2.6)
[2023-08-08 10:15] LABS: PCR FLU A Negative PCR FLU A (Negative); PCR FLU B Negative PCR FLU B (Negative); PCR RSV Negative PCR RSV (Negative)
[2023-08-08 10:16] LABS: C Reactive Protein* 3.3 mg/dL (0.5-1.0)
[2023-08-08 10:17] LABS: SARS PCR* Negative SARS-CoV-2 (Negative)
[2023-08-08 10:18] LABS: D Dimer Quantitative* 0.69 ug/ml (0.00-0.50)
[2023-08-08 10:30] LABS: Procalcitonin* 0.06 ng/mL (<0.50)
[2023-08-08 10:32] LABS: NT Pro B Type NatriureticPept* 400 pg/mL; Troponin I* < 0.01 ng/mL (0.01-0.04)
== END 2023-08-08 11:32 | disposition home or self-care (01) ==
PROVIDERS: Emergency Provider Family Medicine; PCP Family Medicine
DX: J18.9 Pneumonia, unspecified organism (principal); J44.9 Chronic obstructive pulmonary disease, unspecified
CPT/HCPCS: 36415; 71275; 80053; 82803; 83605; 83735; 83880; 84145; 84484; 85025; 85379; 86140; 87631; 93005; 94761; 99284; 99285; Q9967

== ENCOUNTER 2023-09-19 14:20 | Outpatient (CLI) | payer MEDICARE, OTHER, SELFPAY ==
--- NOTE | 2023-09-19 14:45 | PE_ITS ---
[facility] [address] [facility] [address] Phone:?[phone] Fax:?[phone] Referring Physician Information: Zahira Cortez M.D. [address] [facility] [address] Phone:?[phone] Fax:?[phone] Patient:Quinn Regalado D.O.B:?1950 Sex:?Female Phone:?[phone] [facility] MRN:?[id number] Exam Date:?09/19/2023 EXAM: PET/CT EYES TO THIGHS, CANCER RESTAGING CLINICAL INFORMATION: Pulmonary adenocarcinoma. TECHNICAL INFORMATION: Helical acquisition of data was obtained from the orbits to the upper thighs with reconstruction of 3.75 mm thick images at 3.[address] data was used for attenuation correction. PET scanning was performed through the same anatomic range 52 minutes following administration of 12.05 mCi of 18-FDG delivered intravenously. The patient's glucose at the time of the injection was 74 mg/dL. PET, CT and PET/CT fusion images are interpreted using a computer viewing workstation. PET, CT and PET/CT fusion images were archived and saved in the patient's permanent medical record. COMPARISON: Chest CT from 08/08/2023, PET-CT from 03/25/2023. INTERPRETATION: Head and Neck: There are no abnormal hypermetabolic foci within the head or neck. There is physiologic uptake in the intracranial soft tissues. Chest: When compared to the exam from August 08, 2023, the vast majority of pulmonary consolidations have resolved, in keeping with successfully treated pneumonia. There is mild postinflammatory residua and fibroatelectasis scattered throughout both lungs, predominantly in the right middle lobe, but no new, enlarging, or increasingly hypermetabolic lesions to suggest viable malignancy. The dominant treated lesion in the left lower lobe shows cavitation and posttreatment fibrosis but no conspicuous solid or hypermetabolic components to indicate viable residua. Current maximum SUV is 1.7, previously 7.1. Background mediastinal blood pool uptake has a maximum SUV of 2.77. No intrathoracic lymphadenopathy in terms of size, morphology, or metabolic rate. Right chest port catheter terminates at the cavoatrial junction, as before. Abdomen and Pelvis: There are no abnormal hypermetabolic foci within the abdomen or pelvis. Background hepatic parenchymal uptake has a maximum SUV of 2.81. There is physiologic excretion of radiotracer in the urine and bowel. Skeleton, Musculature, and Integument: No abnormal hypermetabolic foci within the skeleton. No maricel osteoblastic or osteolytic disease. CONCLUSION: 1. Compared to the most recent chest CT from July 2023, the vast majority of pulmonary consolidations have resolved, in keeping with prior pneumonia. 2. The primary lesion in the left lower lobe shows cavitation and posttreatment fibrosis but no worrisome solid or hypermetabolic components to indicate viable disease. 3. No new or enlarging pulmonary nodules or masses. No yony or distant metastasis. No new sites of hypermetabolic disease. Electronically signed on 09/20/2023 9:43:00 AM by Guillaume Mckeon M.D. Addendum A ADDENDUM: There is modest FDG uptake within the cervical spinal cord (SUVmax = 3.61) and cauda equina (SUVmax = 4.53). This observation is not uncommon and likely reflects physiologic uptake. However, given the patient's history of pulmonary adenocarcinoma, recommend contrast-enhanced spinal MRI to exclude metastatic involvement. Electronically signed on 10/11/2023 11:24:00 AM by Guillaume Mckeon M.D.
== END 2023-09-19 14:21 | disposition home or self-care (01) ==
LOC: RAD 14:21
PROVIDERS: PCP Family Medicine; Visit Provider Internal Medicine Hematology & Oncology
DX: C34.32 Malignant neoplasm of lower lobe, left bronchus or lung (principal)
CPT/HCPCS: 78815; A9552

== ENCOUNTER 2023-10-10 09:36 | Outpatient (CLI) | payer MEDICARE, OTHER, SELFPAY ==
--- NOTE | 2023-10-10 10:00 | CRLHL7_ITS ---
For Patients: As a result of the Century Cures Act, medical imaging exams and procedure reports are released immediately into your electronic medical record. You may view this report before your referring provider. If you have questions, please contact your health care provider. Indication: LUNG ADENOCARCINOMA Technique: CT Chest W/ 75CC [id number] Please note that all CT scans at this facility use dose modulation, iterative reconstruction, and/or weight-based dosing when appropriate to reduce radiation dose to as low as reasonably achievable. Comparison: CT-PET 09/19/2023, CT chest 08/08/2023 Findings: Post treatment changes to the left lower lobe again noted with reticular areas of scarring. Cavitary lesion again noted with some increased soft tissue density centrally. This lesion measures 1.1 cm and is similar in size to the most recent exam. Stable soft tissue fullness in the mediastinum and thanh. No discrete enlarged lymph node. No thyroid nodule. No pulmonary embolism. Atherosclerotic changes. Gallbladder absent. Postoperative changes at the GE junction. No suspicious osseous lesion. Emphysema. Scarring in the right middle lobe and right lower lobe again noted. Stable nodular densities within the left upper lobe. Impression: Increased soft tissue density associated with the treated cavitary lesion in the left lower lobe with similar size compared to the most recent study. Stable soft tissue fullness in the mediastinum and thanh without change from prior exams. Background emphysema with bilateral areas of scarring. Please note that all CT scans at this facility use dose modulation, iterative reconstruction, and/or weight-based dosing when appropriate to reduce radiation dose to as low as reasonably achievable. Dictated by Peter Gomez MD @ 10/10/2023 3:53:38 PM (Electronically Signed)
[2023-10-10 10:13] LABS: Creatinine* 0.6 mg/dL (0.5-1.5); Estimated Glomerular Filt Rate 95 ml/min
== END 2023-10-10 09:37 | disposition home or self-care (01) ==
LOC: CT 09:37
PROVIDERS: PCP Family Medicine; Visit Provider Internal Medicine Hematology & Oncology
DX: C34.32 Malignant neoplasm of lower lobe, left bronchus or lung (principal)
CPT/HCPCS: 36415; 71260; 82565; Q9967

== ENCOUNTER 2023-10-30 08:39 | Outpatient (CLI) | payer MEDICARE, OTHER, SELFPAY ==
--- OUTSIDE RECORDS SUMMARY | 2023-10-30 08:45 | XMS_ITS | Encounter Summary ---
Author Name Unknown Organization [place] Address [address] [facility] [place] [address] Care Team Providers Care Optical Instruments Supervisor Name Role Phone Hakan Barton MD Unavailable [phone] Unavailable [phone] Jon Eng MD Unavailable [phone] Willam Jaramillo MD Primary Care Provider Encounter Details Date Type Department Care Team (Latest Contact Info) Description 05/02/2023 Travel Social History Tobacco Use Types Packs/Day Years Used Date Smoking Tobacco: Former Cigarettes Smokeless Tobacco: Never Comments:quit 2012 Alcohol Use Standard Drinks/Week Comments Yes 0 (1 standard drink = 0.6 oz pur e alcohol) occas PHQ-2 Answer Date Recorded PHQ-2 Score 0 04/10/2022 Sex and Gender Information Value Date Recorded Sex Assigned at Not on file Gender Identity Not on file Sexual Orientation Not on file COVID-19 Exposure Response Date Recorded In the last 10 days, have yo u been in contact with someone who was confirmed or suspected to have Coronavirus/COVID-19? No / Unsure 05/02/2023 2:53 PM CDT documented as of this encounter Plan of Treatment Not on file documented as of this encounter Visit Diagnoses Not on filedocumented in this encounter Care Teams Optical Instruments Supervisor Relationship Specialty Start [place] [address] [place] [address] PCP - General 07/28/22 [place] [address] [place] [address] Assigned Gastroenterology Provider 05/07/21 08/30/23 Shar Bartlett, RD [address] [place], [place] [id number] Registered Dietitian Dietitian, Registered 07/20/21 Jon Eng MD [address] [facility] [id number] [place], [place] [address] Assigned Surgical Provider 04/14/22 documented as of this encounter
--- OUTSIDE RECORDS SUMMARY | 2023-10-30 08:45 | XMS_ITS | Encounter Summary ---
Author Name Unknown Organization [place] Address [address] [facility] [place] [address] Care Team Providers Care Water Team Leader Name Role Phone Hakan Barton MD Unavailable Shar Bartlett RD Unavailable [phone] Jon Eng MD Unavailable [phone] Willam Jaramillo MD Primary Care Provider Reason for Visit * Reason Onset Date Comments Refill Request 07/01/2023 vancomycin (VANC OCIN) 125 MG capsule Encounter Details Date Type Department Care Team (Late st Contact Info) Description 07/01/2023 Refill [facility] [address] [place] [address] [place] [address] [place] [address] Refill Request (vancomycin (VANCOCIN) 125 MG capsule) Social History Tobacco Use Types Packs/Day Years [...] on file Sexual Orientation Not on file documented as of this encounter Miscellaneous Notes * Telephone Encounter - Mone Butterfield - 07/01/2023 12:02 PM CDT [facility] Phone Message May a detailed message be left on voicemail: yes Reason for Call: Medication Refill Request Has the patient contacted the pharmacy for the refill? Yes Name of medication being requested: vancomycin (VANCOCIN) 125 MG capsule Provider who prescribed the medication: Dr. Barton Pharmacy: [id number] in [place] Date medication is needed: THALIA Action Taken: Message routed to: [facility] GI Travel Screening: Not Applicable documented in this encounter Plan of Treatment Not on file documented as of this encounter Visit Diagnoses Diagnosis Recurrent Clostridioides difficile diarrhea documented in this encounter Care Teams Water Team Leader Relationship Specialty Start [place] [address] [place] [address] PCP - General 07/28/22 [place] [address] [place] [address] Assigned Gastroenterology Provider 05/07/21 08/30/23 Shar Bartlett, TAYLA [address] [place] [id number] Registered Dietitian Dietitian, Registered 07/20/21 Jon Eng MD [address] [place] [address] [id number] [place], [place] [address] Assigned Surgical Provider 04/14/22 documented as of this encounter
--- OUTSIDE RECORDS SUMMARY | 2023-10-30 08:45 | XMS_ITS | Encounter Summary ---
Author Name Unknown Organization [place] Address [address] [place] [address] Care Team Providers Care Pizza Maker Name Role Phone Hakan Barton MD Unavailable Shar Bartlett RD Unavailable [phone] Jon Eng MD Unavailable [phone] Willam Jaramillo MD Primary Care Provider Encounter Details Date Type Department Care Team (Latest Contact Info) Description 02/07/2023 Travel Social History Tobacco Use Types Packs/Day [...] suspected to have Coronavirus/COVID-19? No / Unsure 02/07/2023 8:36 AM CDT documented as of this encounter Plan of Treatment Not on file documented as of this encounter Visit Diagnoses Not on filedocumented in this encounter Care Teams Pizza Maker Relationship Specialty Start [place] [address] [place] [address] PCP - General 07/28/22 [place] [address] [place] [address] Assigned Gastroenterology Provider 05/07/21 08/30/23 Shar Bartlett, RD [address] [place], [place] [address] Registered Dietitian Dietitian, Registered 07/20/21 Jon Eng MD [address] [facility] [id number] [place], [place] [address] Assigned Surgical Provider 04/14/22 documented as of this encounter
--- OUTSIDE RECORDS SUMMARY | 2023-10-30 08:45 | XMS_ITS | Encounter Summary ---
Author Name Unknown Organization [place] Address [address] [facility] [place] [address] Care Team Providers Care Him Specialist Name Role Phone Hakan Barton MD Unavailable Shar Bartlett RD Unavailable [phone] Jon Eng MD Unavailable [phone] Willam Jaramillo MD Primary Care Provider Reason for Visit * Reason Comments Nausea & Vomiting Encounter Details Date Type Department Care Team (Late st Contact Info) Description 05/02/2023 2:41 PM CDT - 05/02/2023 6:48 PM CDT Emergency [facility] Emergency Dept [address] [place] [id number] Michael Martinez MD [facility] [address] [id number] Postoperative nausea and vomiting Discharge Disposition: Home or Self Care Social History Tobacco Use Types Packs/Day Years [...] PM CDT documented as of this encounter Last Filed Vital Signs Vital Sign Reading Time Taken Comments Blood Pressure 167/97 05/02/2023 4:45 PM CDT Pulse 78 05/02/2023 4:45 PM CDT Temperature 36.6 ??C (97.8 ??F) 05/02/2023 2:58 PM CD T Respiratory Rate 16 05/02/2023 4:45 PM CDT Oxygen Saturation 94% 05/02/2023 4:45 PM CDT Inhaled Oxygen Concentration - - Weight 45.8 kg (101 lb) 05/02/2023 2:58 PM CDT Height 162.6 cm (5' 4) 05/02/2023 2:58 PM CDT Body Mass Index 17.34 05/02/2023 2:58 PM CDT documented in this encounter Discharge Instructions * Discharge Instructions* Michael Martinez MD - 05/02/2023 5:09 PM CDT Discharge Instructions Vomiting You have been seen today for vomiting (throwing up). This is usually caused by a virus, but some bacteria, parasites, medicines or other medical conditions can cause similar symptoms. At this time your provider does not find that your vomiting is a sign of anything dangerous or life-threatening. However, sometimes the signs of serious illness do not show up right away. If you have new or worse symptoms, you may need to be seen again in the Emergency Department or by your primary provider. Remember that serious problems like appendicitis can start as vomiting. Generally, every Emergency Department visit should have a follow-up clinic visit with either a primary or a specialty clinic/provider. Please follow-up as instructed by your emergency provider today. Return to the Emergency Department if: You keep vomiting and you are not able to keep liquids down. You feel you are getting dehydrated, such as being very thirsty, not urinating (peeing) at least every 8-12 hours, or feeling faint or lightheaded. You develop a new fever, or your fever continues for more than 2 days. You have abdominal (belly pain) that seems worse than cramps, is in one spot, or is getting worse over time. Appendicitis usually causes pain in the right lower abdomen (to the right and below your belly button) so watch for pain in this location. You have blood in your vomit or stools. You feel very weak. You are not starting to improve within 24 hours of your visit here. What can I do to help myself? The most important thing to do is to drink clear liquids. If you have been vomiting a lot, it is best to have only small, frequent sips of liquids. Drinking too much at once may cause more vomiting. If you are vomiting often, you must replace minerals, sodium and potassium lost with your illness. Pe dialyte?? is the best available rehydration liquid but some find that it doesn???t taste good so sports drinks are an alterative. You can also drink clear liquids such as water, weak tea, apple juice, and 7-Up??. Avoid acid liquids (orange), caffeine (coffee) or alcohol. Do not drink milk until youno longer have diarrhea (loose stools). After liquids are staying down, you may start eating mild foods. Soda crackers, toast, plain noodles, gelatin, applesauce and bananas are good first choices. Avoid foods that have acid, are spicy, fatty or have a lot of fiber (such as meats, coarse grains, vegetables). You may start eating these foods again in about 3 days when you are better. Sometimes treatment includes prescription medicine to prevent nausea (sick to your stomach) and vomiting. If your provider prescribes these for you, take them as directed. Do not take ibuprofen, naproxen, or other nonsteroidal anti-inflammatory (NSAID) medicines without checking with your healthcare provider. If you were given a prescription for medicine here today, be sure to read all of the information (including the package insert) that comes with your prescription. This will include important information about the medicine, its side effects, and any warnings that you need to know about. The pharmacist who fills the prescription can provide more information and answer questions you may have about the medicine. If you have questions or concerns that the pharmacist cannot address, please call or return to the Emergency Department. Remember that you can always come back to the Emergency Department if you are not able to see your regular provider in the amount of time listed above, if you get any new symptoms, or if there is anything that worries you. documented in this encounter Medications at Time of Discharge Medication Sig Dispensed Refills Start Date End Date albuterol (PROAIR HFA/PROVENTIL HFA/VENTOLIN HFA) 108 (90 Base) MCG/ACT inhaler Inhale 1-2 puffs into the lungs every 4 hours as needed for shortness of breath / dyspnea or wheezing 0 albuterol (PROVENTIL) (2.5 MG/3ML) 0.083% neb solution Take 2.5 mg by nebulization every 4 hours as needed for shortness of breath / dyspnea or wheezing 0 aspirin 81 MG EC tablet Take 81 mg by mouth daily 0 atenolol (TENORMIN) 50 MG tablet Take 25 mg by mouth daily 0 bisacodyl (DULCOLAX) 5 MG EC tabletIndications:Hist ory of Clostridioides difficile infection Take 2 tablets by mouth at bedtime two days prior to procedure. Take 2 tabs by mouth at 3pm one day prior to procedure. 4 tablet 0 06/26/2021 budesonide-formoterol (SYMBICORT) 160-4.5 MCG/ACT Inhaler Inhale 2 puffs into the lungs daily 0 ferrous sulfate (FEROSUL) 325 (65 Fe) MG tabletIndications:Iron deficiency anemia, unspecified iron deficiency anemia type Take 1 tablet (325 mg) by mouth daily 60 tablet 1 12/18/2020 polyethylene glycol (GOLYTELY) 236 g suspensionIndications: History of Clostridioides difficile infection Take as directed in patient instructions. One day before exam fill jug with powder and one gallon of water. At 6:00pm drink 8oz glass of mixture every 15 min until the jug is half empty. Store the rest in the refrigerator. Day of exam: 6 hours prior to exam drink the other half of mixture. 4000 mL 0 06/26/2021 rosuvastatin (CRESTOR) 20 MG tablet Take 20 mg by mouth daily 0 vancomycin (FIRVANQ) 25 MG/ML oral solutionIndications:C. difficile colitis Take 5 mLs (125 mg) by mouth 4 times daily . Length of treatment to be decided by Sina Landers and Pattie. 300 mL 3 04/27/2021 vancomycin (VANCOCIN) 125 MG capsuleIndications:Rec urrent Clostridioides difficile diarrhea Take 1 capsule (125 mg) by mouth daily 90 capsule 1 01/14/2022 vancomycin (VANCOCIN) 125 MG capsuleIndications:Rec urrent Clostridioides difficile diarrhea Take 1 capsule (125 mg) by mouth daily 90 capsule 1 10/10/2021 vancomycin (VANCOCIN) 125 MG capsuleIndications:Rec urrent Clostridioides difficile diarrhea Take 1 capsule (125 mg) by mouth 4 times daily 56 capsule 1 07/18/2021 vancomycin (VANCOCIN) 125 MG capsuleIndications:Rec urrent Clostridioides difficile diarrhea Take 1 capsule (125 mg) by mouth 4 times daily 56 capsule 0 06/20/2021 ondansetron (ZOFRAN ODT) 4 MG ODT tab Take 1-2 tablets (4-8 mg) by mouth every 8 hours as needed for nausea or vomiting 18 tablet 0 05/02/2023 05/05/2023 vancomycin (VANCOCIN) 125 MG capsuleIndications:Rec urrent Clostridioides difficile diarrhea Take 1 capsule (125 mg) by mouth daily 90 capsule 1 09/20/2022 07/01/2023 documented as of this encounter ED Notes * Naveen Correa RN - 05/02/2023 2:50 PM CDT Patient PERRI from surgery center where she had a port placed due to treatment starting for lung cancer. Patient always gets nausea and vomiting after anesthesias. The surgery center used 5 of versed and 150 of fentanyl. They tried using 8 of zofran and 10 of reglan to help her N/V, but it did not help. Patient has pneumonia and lung cancer. * Evan Lynn RN - 05/02/2023 2:42 PM CDT Bed: ED11 Expected date: Expected time: Means of arrival: Comments: Ana Rosa - 73 F cath problems eta 1435 * Michael Martinez MD - 05/02/2023 2:41 PM CDT History Chief Complaint: Nausea & Vomiting The history is provided by the patient. Racheal Regalado is a 73 year old female with history of COPD, PONV, hypertension, and diverticulitis who presents to the ED via EMS with her for evaluation of nausea and vomiting. The patientreports she had a port placed this morning due to starting lung cancer treatment next week. She wasdiagnosed on 04/15/23. Since waking from surgery around 1000 this morning, she has had many episodes of emesis with some hematemesis. She attempted to drink water, but she is not able to keep food or water down. She endorses heartburning radiating upward, chills, a slight headache, and epigastric tenderness. She is currently being treated for pneumonia. She denies fever. No gallbladder, appendix, or ovaries. Independent Historian: None - Patient Only Review of External Notes: None Medications: Firvanq Toprol Crestor Cozaar Norvasc Valium Vancocin Tenormin Past Medical History: Anxiety Colitis due to C. Difficile COPD Diverticulitis of large intestine with abscess Diverticulitis of small intestine with abscess GI bleed Hiatal hernia Hyperlipidemia Hypertension Noninfectious ileitis PONV Thrombosis of leg Non intractable headache Non intractable nausea and vomiting Iron deficiency anemia Peritoneal abscess External hemorrhoids Rectal bleeding Hyperbilirubinemia SMO Past Surgical History: Appendectomy Hysterectomy Vagotomy Spine surgery x5 Breast surgery x2 Cholecystectomy Colonoscopy x6 Colostomy DaVinci Xi-assisted colostomy takedown Insert stent ureter, bilateral x2 Knee ORIF Carpal tunnel release Hernia repair Meniscectomy, left knee EGD Physical Exam Patient Vitals for the past 24 hrs: BP Temp Temp src Pulse Resp SpO2 Height Weight 05/02/23 1645 (!) 167/97 -- -- 78 16 94 % -- -- 05/02/23 1500 (!) 161/96 -- -- 78 -- 95 % -- -- 05/02/23 1458 (!) 161/96 97.8 ??F (36.6 ??C) Temporal 80 18 94 % 1.626 m (5' 4) 45.8 kg (101 lb) Physical Exam Eye: Pupils are equal, round, and reactive. Extraocular movements intact. ENT: No rhinorrhea. Moist mucus membranes. Normal tongue and tonsil. Cardiac: Regular rate and rhythm. No murmurs, gallops, or rubs. Pulmonary: Clear to auscultation bilaterally. No wheezes, rales, or rhonchi. Abdomen: Positive bowel sounds. Abdomen is soft and non-distended, without focal tenderness. Musculoskeletal: Normal movement of all extremities without evidence for deficit. Skin: Warm and dry without rashes. Neurologic: Non-focal exam without asymmetric weakness or numbness. Psychiatric: Normal affect with appropriate interaction with examiner. Emergency Department Course ECG ECG taken at 1552, ECG read at 1556 Sinus rhythm with occasional premature ventricular complexes Otherwise normal ECG Rate 75 bpm. NM interval 142 ms. QRS duration 90 ms. QT/QTc 416/464 ms. P-R-T axes 86 84 83. Laboratory: Labs Ordered and Resulted from Time of ED Arrival to Time of ED Departure BASIC METABOLIC PANEL - Abnormal Result Value Sodium 140 Potassium 4.5 Chloride 104 Carbon Dioxide (CO2) 24 Anion Gap 12 Urea Nitrogen 10.4 Creatinine 0.66 Calcium 8.5 (*) Glucose 130 (*) GFR Estimate >90 HEMOGLOBIN - Normal Hemoglobin 14.2 Emergency Department Course & Assessments: Interventions: Medications 0.9% sodium chloride BOLUS (0 mLs Intravenous Stopped 05/02/23 1715) droperidol (INAPSINE) injection 0.625 mg (0.625 mg Intravenous $Given 05/02/23 1530) ondansetron (ZOFRAN ODT) ODT tab 4 mg (4 mg Oral $Given 05/02/23 174) famotidine (PEPCID) tablet 20 mg (20 mg Oral $Given 05/02/23 174) Assessments: 1457 A medical student assisting me today, Kane, obtained history and examined the patient. 1525 I obtained history and examined the patient as noted above. 1706 I rechecked the patient and explained findings. We discussed plans for discharge and the patient is comfortable with this plan. Social Determinants of Health affecting care: None Disposition: The patient was discharged to home. Impression & Plan Medical Decision Making: This unfortunate 73-year-old with recent diagnosis of lung cancer presents to us from an outpatientsurgical center where she underwent port placement today. She notes that she has always had issues with postoperative nausea and vomiting. Per the report, she was given fentanyl and Versed, but has been having intractable vomiting since coming out of this anesthesia. Eventually sent her [facility] due to ongoing vomiting. They attempted Zofran and Reglan with limited relief. On my exam, the patient appears well. She is more comfortable lying on her side, feeling worse whenshe sits up or moves about. Otherwise, vital signs are reassuring. She was given a dose of droperidol along with fluids and we observed her on EKG monitoring and provided her with time to recover. Laboratory investigation is all reassuring. I have limited concern that she has any new or life-threatening intra-abdominal pathology today considering that she walked into the surgical center earlier on today without any symptoms and that this has been an issue for her in the past. I see no indication for advanced imaging at this point. With a 3-hour observation period, the patient started to feel much improved. She was able to tolerate fluids and crackers. I did offer her observation admission, though she is feeling well enough now that she would prefer to go home. I support this and she has some home Zofran to take. I expect her symptoms to continue to evolve and improve as the anesthetic is cleared from her system. I have placed that she is allergic to fentanyl in her chart and that she should otherwise be wary of using this drug in the future for anesthesia. Otherwise, she understandsshe can return to us at any point for worsening of condition or other emergent concerns. Diagnosis: ICD-10-CM 1. Postoperative nausea and vomiting R11.2 Z98.890 Scribe Disclosure: Symone Parra Hailie, am serving as a scribe at 3:08 PM on 05/02/2023 to document services personally performed by Michael Martinez MD based on my observations and the provider's statements to me. 05/02/2023 Michael Martinez MD Trierweiler, Chad A, MD 05/03/23 1256 documented in this encounter Plan of Treatment Not on file documented as of this encounter Procedures Procedure Name Priority Date/Time Associated Diagnosis Comments EKG 12-LEAD, TRACING ONLY STAT 05/02/2023 3:52 PM CDT HEMOGLOBIN STAT 05/02/2023 3:17 PM CDT BASIC METABOLIC PANEL STAT 05/02/2023 3:17 PM CDT documented in this encounter Results * EKG 12-lead, tracing only (05/02/2023 3:52 PM CDT) Systolic Blood Pressure mmHg RADIOLOGY RESULTS Diastolic Blood Pressure mmHg RADIOLOGY RESULTS Ventricular Rate 75 BPM RAD IOLOGY RESULTS Atrial Rate 75 BPM RADIOLOG Y RESULTS NM Interval 142 ms RADIOLOG Y RESULTS QRS Duration 90 ms RADIOLO GY RESULTS QT 416 ms RADIOLOGY RESULTS QTc 464 ms RADIOLOGY RESULTS P Armstrong 86 degrees RADIOLOGY RESULTS R AXIS 84 degrees RADIOLOGY RESULTS T Armstrong 83 degrees RADIOLOGY RESULTS Interpretation ECG Sinus rhythm with occasional Premature ventricular complexes Otherwise normal ECG When compared with ECG of 07-FEB-2023 09:51, T wave inversion now evident in Anterior leads Confirmed by GENERATED REPORT, COMPUTER ([id number]), editorial director Patito Andrade ([id number]) on 05/02/2023 4:01:38 PM RADIOLOGY RESULTS 05/02/2023 3:52 PM CDT 05/02/2023 4:01 PM CDT Michael Martinez MD ECG ORDERABLES RADIOLOGY RESULTS * Hemoglobin (05/02/2023 3:17 PM CDT) Hemoglobin 14.2 11.7 - 15.7 g/dL 05/02/2023 3:23 PM CDT LABORATORY Blood BLOOD SPECIMEN / Unknown Venipuncture / Unknown 05/02/2023 3:17 PM CDT 05/02/2023 3:20 PM CDT Michael Martinez MD LAB - BLOOD [facility] [address], [address] [place] [address], [facility] [phone] * (ABNORMAL) Basic metabolic panel (05/02/2023 3:17 PM CDT) Sodium 140 136 - 145 mmol/L 05/02/2023 3:44 PM CDT LABORATORY Potassium 4.5 3.4 - 5.3 mmol/L 05/02/2023 3:44 PM CDT LABORATORY Comment:Specimen slightly he molyzed. Potassium may be falsely elevated. Analysis of a non-hemolyzed specimen may result in a lower value. Chloride 104 98 - 107 mmol/L 05/02/2023 3:44 PM CDT LABORATORY Carbon Dioxide (CO2) 24 22 - 29 mmol/L 05/02/2023 3:44 PM CDT LABORATORY Anion Gap 12 7 - 15 mmol/L 05/02/2023 3:44 PM CDT LABORATORY Urea Nitrogen 10.4 8.0 - 23.0 mg/dL 05/02/2023 3:44 PM CDT LABORATORY Creatinine 0.66 0.51 - 0.95 mg/dL 05/02/2023 3:44 PM CDT LABORATORY Calcium 8.5(L) 8.8 - 10.2 mg/dL 05/02/2023 3:44 PM CDT LABORATORY Glucose 130(H) 70 - 99 mg/dL 05/02/2023 3:44 PM CDT LABORATORY GFR Estimate >90 >60 mL/min/1.7 3m2 05/02/2023 3:44 PM CDT LABORATORY Blood BLOOD SPECIMEN / Unknown Venipuncture / Unknown 05/02/2023 3:17 PM CDT 05/02/2023 3:20 PM CDT Michael Martinez MD LAB - BLOOD [facility] [address], [address] [place] [address], [place] [phone] documented in this encounter Visit Diagnoses Diagnosis Postoperative nausea and vomiting Nausea with vomiting documented in this encounter Administered Medications Inactive Administered Medications - up to 3 most recent administrations Medication Order MAR Action Action Date Dose Rate Site 0.9% sodium chloride BOLUS Intravenous, 1,000 mL, ONCE, On Carisa 05/02/23 at 1515, For 1 dose $New Bag 05/02/2023 3:32 PM CDT 1,000 mLs droperidol (INAPSINE) injection 0.625 mg 0.625 mg, Intravenous, ONCE, Administer over 1-4 Minutes, On Carisa 05/02/23 at 1515, For 1 dose, Monitor EKG for 2-3 hours after administration. $Given 05/02/2023 3:30 PM CDT 0.625 mg famotidine (PEPCID) tablet 20 mg 20 mg, Oral, ONCE, On Carisa 05/02/23 at 1740, For 1 dose $Given 05/02/2023 5:42 PM CDT 20 mg ondansetron (ZOFRAN ODT) ODT tab 4 mg 4 mg, Oral, ONCE, On Carisa 05/02/23 at 1740, For 1 dose, With dry hands, peel back foil backing and gently remove tablet. Do not push oral disintegrating tablet through foil backing. Administer immediately on tongue and oral disintegrating tablet dissolves in seconds, then swallow with saliva. Liquid not required. $Given 05/02/2023 5:42 PM CDT 4 mg documented in this encounter Active and Recently Administered Medications Times are shown in CDT. Scheduled Medication Order 04/30/2023 05/01/2023 05/02/2023 0.9% sodium chloride BOLUS (COMPLETED) Intravenous, 1,000 mL, ONCE, On Carisa 05/02/23 at 1515, For 1 dose 1532 ($New Bag - Pro vider: Naveen Correa RN)1715 (Stopped - Provider: Naveen Correa RN) droperidol (INAPSINE) injection 0.625 mg (COMPLETED) 0.625 mg, Intravenous, ONCE, Administer over 1-4 Minutes, On Carisa 05/02/23 at 1515, For 1 dose, Monitor EKG for 2-3 hours after administration. 1530 ($Given - Provi kate: Naveen Correa RN) famotidine (PEPCID) tablet 20 mg (COMPLETED) 20 mg, Oral, ONCE, On Carisa 05/02/23 at 1740, For 1 dose 1742 ($Given - Provi kate: Naveen Correa RN) ondansetron (ZOFRAN ODT) ODT tab 4 mg (COMPLETED) 4 mg, Oral, ONCE, On Carisa 05/02/23 at 1740, For 1 dose, With dry hands, peel back foil backing and gently remove tablet. Do not push oral disintegrating tablet through foil backing. Administer immediately on tongue and oral disintegrating tablet dissolves in seconds, then swallow with saliva. Liquid not required. 1742 ($Given - Provi kate: Naveen Correa RN) documented in this encounter Care Teams Him Specialist Relationship Specialty Start [place] [address] [place] [address] PCP - General 07/28/22 [place] [address] [place] [address] Assigned Gastroenterology Provider 05/07/21 08/30/23 Shar Bartlett, TAYLA [address] [place] [id number] Registered Dietitian Dietitian, Registered 07/20/21 Jon Eng MD [address] [place] [address] [id number], [place] [address] Assigned Surgical Provider 04/14/22 documented as of this encounter
--- OUTSIDE RECORDS SUMMARY | 2023-10-30 08:45 | XMS_ITS | Encounter Summary ---
Author Name Unknown Organization [place] Address [address] [facility] [place] [address] Care Team Providers Care Rod Filler Name Role Phone Hakan Barton MD Unavailable Shar Bartlett RD Unavailable [phone] Jon Eng MD Unavailable [phone] Willam Jaramillo MD Primary Care Provider Reason for Visit * Reason Onset Date Comments Refill Request 07/05/2023 vancomycin (VANC OCIN) 125 MG capsule Encounter Details Date Type Department Care Team (Late st Contact Info) Description 07/05/[address] [facility] [address] [place] [address] [place] [address] [place] [address] Refill Request (vancomycin (VANCOCIN) 125 MG capsule) Social History Tobacco Use Types Packs/Day Years Used Date Smoking Tobacco: Former Cigarettes Smokeless Tobacco: Never Comments:quit 2012 Alcohol Use Standard Drinks/Week Comments Yes 0 (1 standard drink = 0.6 oz pur e alcohol) occas PHQ-2 Answer Date Recorded PHQ-2 Score 0 04/10/2022 Adolescent Education Answer Date Record ed Getting School Help Needed Not on file 07/05 Sex and Gender Information Value Date Recorded Sex Assigned at Not on file Gender Identity Not on file Sexual Orientation Not on file documented as of this encounter Miscellaneous Notes * Telephone Encounter - Sumaya Small RN - 07/05/2023 10:44 AM CDT Call to patient who is reporting that she is currently going to fill the vanco wherever it is cheaper. [facility] pharmacy reached out to ask about refills. The pharmacist will reach out to [facility] for a transfer per pt request. Sumaya Small RN * Telephone Encounter - Nafisa Huynh - 07/05/2023 10:28 AM CDT [facility] Phone Message May a detailed message be left on voicemail: yes Reason for Call: Medication Question or concern regarding medication Prescription Clarification Name of Medication: vancomycin (VANCOCIN) 125 MG capsule Prescribing Provider: Dr. Hakan Barton Pharmacy: [facility] #[id number] What on the order needs clarification? Pharmacy calling for status of refill - call [phone] [facility] pharmacist. Action Taken: Message routed to: [facility] Travel Screening: Not Applicable documented in this encounter Plan of Treatment Not on file documented as of this encounter Visit Diagnoses Not on filedocumented in this encounter Care Teams Rod Filler Relationship Specialty Start [place] [address] [place] [address] PCP - General 07/28/22 [place] [address] [place] [address] Assigned Gastroenterology Provider 05/07/21 08/30/[address] [place] [address] Registered Dietitian Dietitian, Registered 07/20/21 Jon Eng MD [address] [facility] [id number] [address] Assigned Surgical Provider 04/14/22 documented as of this encounter
--- OUTSIDE RECORDS SUMMARY | 2023-10-30 08:45 | XMS_ITS | Encounter Summary ---
Author Name Unknown Organization [facility] Address [address] [facility] [place] [address] Care Team Providers Care Food Aide Name Role Phone Hakan Barton MD Unavailable Shar Bartlett RD Unavailable [phone] Jon Eng MD Unavailable [phone] Willam Jaramillo MD Primary Care Provider Reason for Visit * Reason Comments Numbness Hypertension Encounter Details Date Type Department Care Team (Late st Contact Info) Description 02/07/2023 9:04 AM CDT - 02/07/2023 11:27 AM CDT [facility] [address] [place] [address] Rohan Anna MD [facility] [address] [place], [place] [id number] Acute nonintractable headache, unspecified headache type; Sinusitis, unspecified chronicity, unspecified location; Benign essential hypertension; Subconjunctival bleed, right; Intracranial aneurysm Discharge Disposition: Home or Self Care Social [...] AM CDT documented as of this encounter Last Filed Vital Signs Vital Sign Reading Time Taken Comments Blood Pressure 175/83 02/07/2023 11:00 AM CDT Pulse 67 02/07/2023 11:00 AM CDT Temperature 36.7 ??C (98 ??F) 02/07/2023 8:43 AM CDT Respiratory Rate 18 02/07/2023 8:43 AM CDT Oxygen Saturation 95% 02/07/2023 11:00 AM CDT Inhaled Oxygen Concentration - - Weight - - Height - - Body Mass Index - - documented in this encounter Discharge Instructions * Attachments The following attachments cannot be sent through Care Everywhere. * Hemorrhage, Subconjunctival (Libyan) * Hypertension, Established (Libyan) * Headaches, Self-Care for (Libyan) documented in this encounter Medications at Time [...] 4 times daily 56 capsule 0 06/20/2021 vancomycin (VANCOCIN) 125 MG capsuleIndications:Rec urrent Clostridioides difficile diarrhea Take 1 capsule (125 mg) by mouth daily 90 capsule 1 09/20/2022 07/01/2023 documented as of this encounter ED Notes * Katrin Robert RN - 02/07/2023 11:23 AM CDT Another RN advised this RN that the patient pulled out her own two PIVs while she was walking by. Patient told that RN that she was told she could leave, patient then left department without discharge paperwork * Katrin Robert RN - 02/07/2023 10:04 AM CDT Pt advises that the prickling feelings in her face and left arm have subsided * Katrin Robert RN - 02/07/2023 8:45 AM CDT Pt noted bleeding in right eye last night before bed, at 0430 this am patient awoke to face prickling on both sides and prickling noted to left arm. Pt has hx of brain aneurysm that is being watched. Triage Assessment Row Name 02/07/23 0845 Triage Assessment (Adult) Airway WDL WDL Respiratory WDL Respiratory WDL WDL Skin Circulation/Temperature WDL Skin Circulation/Temperature WDL WDL Cardiac WDL Cardiac WDL WDL Peripheral/Neurovascular WDL Peripheral Neurovascular WDL WDL Cognitive/Neuro/Behavioral WDL Cognitive/Neuro/Behavioral WDL X * Rohan Anna MD - 02/07/2023 8:36 AM CDT BOOM Provider Note [facility] 4:43 PM 02/07/2023 Racheal Regalado 73 year oldfemale Chief Complaint Patient presents with ??? Numbness ??? Hypertension HPI: 73-year-old female with a history of hypertension presenting to the emergency department with her significant other for evaluation of head pressure located occipitally that occurred around 4 5 AM. Healmarjorie had bilateral lower facial paresthesias around 8 AM. For the last several months she had intermittent right upper extremity paresthesias as well. No weakness or challenges with coordination. No vision change however she is noted she has had 4 separate incidences of some conjunctival hemorrhagewith the most recent episode starting this morning involving the right eye. No vomiting, no neck pain, no chest pain, no shortness of breath. No melena hematochezia or diarrhea. No bladder changes. He does have a known history of a small intracranial aneurysm. She is on antihypertensive medicationsand had her medicines this morning. ROS: 10 point ROS completed and negative other than mentioned above Past Medical History: Diagnosis Date ??? Anxiety ??? Colitis due to Clostridium difficile multiple episodes starting 01/2021 ??? COPD (chronic obstructive pulmonary disease) (H) ??? Diverticulitis ??? GI bleed ??? Hiatal hernia ??? HLD (hyperlipidemia) ??? Hypertension ??? Noninfectious ileitis diverticulitis ??? PONV (postoperative nausea and vomiting) ??? Thrombosis of leg Past Surgical History: Procedure Laterality Date ??? APPENDECTOMY ??? BACK SURGERY spine surgery x5 ??? BREAST SURGERY impants, ruptured implants removed ??? CHOLECYSTECTOMY ??? COLONOSCOPY ??? COLONOSCOPY N/A 07/06/2016 Procedure: COLONOSCOPY; Surgeon: Tamiko Ruiz MD; Location: [facility] ??? COLONOSCOPY N/A 12/12/2020 Procedure: Colonoscopy, Through Stoma; Surgeon: Tamiko Ruiz MD; Location: [facility] ??? COLONOSCOPY N/A 12/12/2020 Procedure: Colonoscopy, With Polypectomy And Biopsy; Surgeon: Tamiko Ruiz MD; Location: [facility] ??? COLONOSCOPY N/A 07/03/2021 Procedure: Colonoscopy, With Biopsy; Surgeon: Hakan Barton MD; Location: [facility] ??? COLONOSCOPY, FECAL TRANSPLANT N/A 07/03/2021 Procedure: COLONOSCOPY, WITH INTESTINAL MICROBIOTA TRANSFER; Surgeon: Hakan Barton MD; Location[facility] ??? COLOSTOMY N/A 04/21/2020 Procedure: Colostomy; Surgeon: Tamiko Ruiz MD; Location: [facility] ??? DAVINCI XI ASSISTED COLOSTOMY TAKEDOWN N/A 12/13/2020 Procedure: Da Lana Xi-assisted colostomy closure to Duc stump, extensive lysis of adhesions, mobilization of the splenic flexure, intraoperative fluorescence angiography, coloproctostomy, rigidproctoscopy. Cystoscopy and bilateral ureteral stents.; Surgeon: Tamiko Ruiz MD; Location:[facility] OR ??? FOREIGN LEGAL CONSULTANT SURGERY hysterectomy ??? INSERT STENT URETER Bilateral 04/21/2020 Procedure: Bilateral ureteral stent placement; Surgeon: Jerrod Jose MD; Location: [facility] ??? INSERT STENT URETER Bilateral 12/13/2020 Procedure: Cystoscopy and bilateral ureteral stents.; Surgeon: Jerrod Jose MD; Location: [facility] ??? LAPAROSCOPIC ASSISTED SIGMOID COLECTOMY N/A 04/21/2020 Procedure: Laparoscopic assisted sigmoid colectomy and colostomy; Surgeon: Tamiko Ruiz MD;Location: [facility] OR ??? LAPAROSCOPIC VAGOTOMY open vagotomy ??? ORTHOPEDIC SURGERY knee ORIF, carpal tunnel surgery Social History Tobacco Use ??? Smoking status: Former Types: Cigarettes ??? Smokeless tobacco: Never ??? Tobacco comments: quit 2013 Substance Use Topics ??? Alcohol use: Yes Comment: occas ??? Drug use: No Current Outpatient Medications Medication Instructions ??? albuterol (PROAIR HFA/PROVENTIL HFA/VENTOLIN HFA) 108 (90 Base) MCG/ACT inhaler 1-2 puffs, Inhalation, EVERY 4 HOURS PRN ??? albuterol (PROVENTIL) 2.5 mg, Nebulization, EVERY 4 HOURS PRN ??? amLODIPine (NORVASC) 5 mg, Oral, DAILY ??? aspirin 81 mg, Oral, DAILY ??? atenolol (TENORMIN) 25 mg, Oral, DAILY ??? bisacodyl (DULCOLAX) 5 MG EC tablet Take 2 tablets by mouth at bedtime two days prior to procedure. Take 2 tabs by mouth at 3pm one day prior to procedure. ??? budesonide-formoterol (SYMBICORT) 160-4.5 MCG/ACT Inhaler 2 puffs, DAILY ??? ferrous sulfate (FEROSUL) 325 mg, Oral, DAILY ??? polyethylene glycol (GOLYTELY) 236 g suspension Take as directed in patient instructions. One day before exam fill jug with powder and one gallon of water. At 6:00pm drink 8oz glass of mixture every 15 min until the jug is half empty. Store the rest in the refrigerator. Day of exam: 6 hours prior to exam drink the other half of mixture. ??? rosuvastatin (CRESTOR) 20 mg, Oral, DAILY ??? vancomycin (FIRVANQ) 125 mg, Oral, 4 TIMES DAILY, . Length of treatment to be decided by Sina Landers and Pattie. ??? vancomycin (VANCOCIN) 125 mg, Oral, 4 TIMES DAILY ??? vancomycin (VANCOCIN) 125 mg, Oral, 4 TIMES DAILY ??? vancomycin (VANCOCIN) 125 mg, Oral, DAILY ??? vancomycin (VANCOCIN) 125 mg, Oral, DAILY ??? vancomycin (VANCOCIN) 125 mg, Oral, DAILY Allergies Allergen Reactions ??? Ceftin [Cefuroxime] Anaphylaxis ??? Doxycycline Anaphylaxis ??? Flagyl [Metronidazole] Headache and Nausea and Vomiting Bad reaction to this ... ??? Magnesium Citrate Unknown Went unconcious ??? Pcn [Penicillins] Anaphylaxis Throat swells ??? Tequin [Gatifloxacin] Anaphylaxis ??? Morphine Other (See Comments) Racing heart rate, sweating, increased BP ??? Bactrim [Sulfamethoxazole-Trimethoprim] ??? Codeine Other (See Comments) Increased BP, increased heart rate ??? Demerol [Meperidine] Increased BP, increased heart rate ??? Iron Sucrose chills, wheezing, SOB, fevers, increased BP, increased HR ??? Vicodin [Hydrocodone-Acetaminophen] Increased BP, increased heart rate Physical Exam Vitals: BP (!) 175/83 Pulse 67 Temp 98 ??F (36.7 ??C) (Temporal) Resp 18 SpO2 95% HEENT: Right eye inferomedial subconjunctival hemorrhage. Pupils are 4 mm and reactive bilaterally,extraocular movements are intact. Visual garza intact. Nondilated funduscopic examination unremarkable. mmm, no rhinorrhea Neck: supple, no abnormal swelling, no midline tenderness Lungs: CTAB, no resp distress CV: rrr, no m/r/g, ppi Abd: soft, nontender, nondistended, no rebound/masses/guarding/hsm Ext: no peripheral edema Skin: warm, dry, well perfused, no rashes/bruising/lesions on exposed skin Neuro: alert, oriented, speech clear, cranial nerves II through XII intact symmetric, 5 out of 5 motor bilateral upper and lower extremity, sensation tact light touch all extremities. Coordination and gait intact. Psych: Normal mood, normal affect Labs and Imaging: Labs Ordered and Resulted from Time of ED Arrival to Time of ED Departure ISTAT BASIC CHEM ICA HEMATOCRIT POCT - Abnormal Result Value Chloride POCT 101 Potassium POCT 4.2 Sodium POCT 139 UREA NITROGEN POCT 12 Calcium, Ionized Whole Blood POCT 4.6 Glucose Whole Blood POCT 110 (*) Anion Gap POCT 15.0 (*) Hemoglobin POCT 16.0 (*) Hematocrit POCT 47 Creatinine POCT 0.7 TOTAL CO2 POCT 28 BASIC METABOLIC PANEL - Abnormal Sodium 139 Potassium 4.2 Chloride 101 Carbon Dioxide (CO2) 28 Anion Gap 10 Urea Nitrogen 10.8 Creatinine 0.71 Calcium 9.6 Glucose 113 (*) GFR Estimate 89 GLUCOSE BY METER - Normal GLUCOSE BY METER POCT 98 TROPONIN T, HIGH SENSITIVITY - Normal Troponin T, High Sensitivity 6 CBC WITH PLATELETS AND DIFFERENTIAL WBC Count 7.2 RBC Count 4.96 Hemoglobin 14.6 Hematocrit 45.4 MCV 92 MCH 29.4 MCHC 32.2 RDW 14.2 Platelet Count 298 % Neutrophils 66 % Lymphocytes 18 % Monocytes 14 % Eosinophils 1 % Basophils 1 % Immature Granulocytes 0 NRBCs per 100 WBC 0 Absolute Neutrophils 4.7 Absolute Lymphocytes 1.3 Absolute Monocytes 1.0 Absolute Eosinophils 0.1 Absolute Basophils 0.1 Absolute Immature Granulocytes 0.0 Absolute NRBCs 0.0 CTA Head Neck with Contrast Final Result IMPRESSION: HEAD CTA: 1. 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 2. Minor intracranial atherosclerosis. No high-grade narrowing or proximal large vessel occlusion. 3. There are some dependent inflammatory secretions in the lower right maxillary sinus. NECK CTA: 1. Mild carotid artery atherosclerosis. 2. No dissection or hemodynamically significant narrowing in the neck by NASCET criteria. CRICKET CARMONA MD SYSTEM ID: [id number] Head CT w/o contrast Final Result IMPRESSION: No intracranial hemorrhage, mass, or definite CT evidence of recent ischemia. CRICKET CARMONA MD SYSTEM ID: [id number] Independent Historian: Here with significant other who adds that she does not seem to be confused and her speech is normal. Review of External Notes: Reviewed previous imaging in her system detailing is 2 mm previously seenaneurysm. Independent Interpretation (X-rays, CTs, rhythm strip): Noncontrast CT head without evidence of intracranial hemorrhage. See without evidence of large vessel occlusion. Consultations/Discussion of Management or Tests: Social Determinants of Health affecting care: ED Medications: Medications iopamidol (ISOVUE-370) solution 500 mL (75 mLs Intravenous $Given 02/07/23914) CT scan flush use (80 mLs As instructed $Given 02/07/2315) Medical Decision Makin-year-old female here with known small intracranial aneurysm and symptoms of occipital headache/pressure and ongoing intermittent right upper extremity paresthesias. Work-up here is unremarkable inthe emergency room including CT of the head and CTA of the head and neck. ECG shows a normal sinus rhythm. Blood test with no significant acute abnormalities including a troponin. Blood pressure did trend down without significant intervention during her time here in the emergency room. She has no focal neurologic deficits. Does not think she needs a MRI as my suspicion for a ischemic CVA is quitelow given the no ongoing appreciable deficits. She does happen to have a subconjunctival hemorrhage. We discussed the test as well as what is known and unknown what to watch out for when to return tothe ER and she is comfortable and agreeable with that plan. CT shows no significant change in size of her aneurysm. Diagnosis: ICD-10-CM 1. Acute nonintractable headache, unspecified headache type R51.9 2. Sinusitis, unspecified chronicity, unspecified location J32.9 3. Benign essential hypertension I10 4. Subconjunctival bleed, right H11.31 5. Intracranial aneurysm I67.1 Disposition: Home Rohan Anna MD [facility] Rohan Anna MD 02/07/23 1648 documented in this encounter Plan of Treatment Not on file documented as of this encounter Procedures Procedure Name Priority Date/Time Associated Diagnosis Comments EKG 12-LEAD, TRACING ONLY STAT 02/07/2023 9:51 AM CDT CTA HEAD NECK W CONTRAST STAT 02/07/2023 9:[address] HEAD W/O CONTRAST STAT 02/07/2023 9:38 AM CDT ISTAT BASIC CHEM ICA HEMATOCRIT POCT STAT 02/07/2023 8:56 AM CDT EXTRA TUBE STAT 02/07/2023 8:55 AM CDT EXTRA PURPLE TOP TUBE STAT 02/07/2023 8:55 AM CDT EXTRA GREEN TOP (LITHIUM HEPARIN) TUBE STAT 02/07/2023 8:55 AM CDT EXTRA RED TOP TUBE STAT 02/07/2023 8: 55 AM CDT EXTRA BLUE TOP TUBE STAT 02/07/2023 8 :55 AM CDT CBC WITH PLATELETS AND DIFFERENTIAL STAT 02/07/2023 8:55 AM CDT TROPONIN T, HIGH SENSITIVITY STAT 02/07/2023 8:55 AM CDT CBC WITH PLATELETS & DIFFERENTIAL STAT 02/07/2023 8:55 AM CDT BASIC METABOLIC PANEL STAT 02/07/2023 8:55 AM CDT GLUCOSE BY METER STAT 02/07/2023 8:44 AM CDT documented in this encounter Results * EKG 12-lead, tracing only (02/07/2023 9:51 AM CDT) Systolic Blood Pressure mmHg RADIOLOGY RESULTS Diastolic Blood Pressure mmHg RADIOLOGY RESULTS Ventricular Rate 74 BPM RAD IOLOGY RESULTS Atrial Rate 74 BPM RADIOLOG Y RESULTS OR Interval 136 ms RADIOLOG Y RESULTS QRS Duration 80 ms RADIOLO GY RESULTS QT 416 ms RADIOLOGY RESULTS QTc 461 ms RADIOLOGY RESULTS P [place] 89 degrees RADIOLOGY RESULTS R AXIS 75 degrees RADIOLOGY RESULTS T [place] 68 degrees RADIOLOGY RESULTS Interpretation ECG Sinus rhythm with occasional Premature ventricular complexes Otherwise normal ECG When compared with ECG of 28-JUL-2022 14:22, Premature ventricular complexes are now Present Confirmed by - EMERGENCY ROOM, PHYSICIAN ([id number]), technical editor LIZA MILLER ([id number]) on 02/07/2023 12:26:41 PM RADIOLOGY RESULTS 02/07/2023 9:51 AM CDT 02/07/2023 12:26 PM CDT Rohan Anna MD ECG ORDERABLES RADIOLOGY RESULTS * CTA Head Neck with Contrast (02/07/2023 9:39 AM CDT) Anatomical Region Laterality Modality Head, SUBRAD CT NEURO, SUBRA D CT NEURO, UMP CT NEURO, RAD CT Computed Tomography Impressions 02/07/2023 10:40 AM CDT IMPRESSION: HEAD CTA: 1. 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 2. ??Minor intracranial atherosclerosis. No high-grade narrowing or proximal large vessel occlusion. 3. ??There are some dependent inflammatory secretions in the lower right maxillary sinus. NECK CTA: 1. ??Mild carotid artery atherosclerosis. 2. ??No dissection or hemodynamically significant narrowing in the neck by NASCET criteria. CRICKET CARMONA MD SYSTEM ID: ??[id number] Narrative 02/07/2023 10:40 AM CDT CTA HEAD AND NECK WITH CONTRAST 02/07/2023 9:39 AM INDICATION: Headache, facial paresthesias, right arm paresthesia, known intracranial aneurysm. TECHNIQUE: Head and neck CT angiogram with IV contrast. CT images of the head and neck vessels obtained during the arterial phase of intravenous contrast administration. Axial helical 2D reconstructed images and multiplanar 3D MIP reconstructed images of the head and neck vessels were performed on a separate workstation. Dose reduction techniques were used. CONTRAST: 75mL Isovue-370 COMPARISON: Head and neck CTA 07/28/2022. FINDINGS: HEAD CTA: Broad-based posterior directed 2 mm aneurysm arising from the right carotid terminus is unchanged. Minor carotid siphon atherosclerosis. No high-grade vessel narrowing or proximal large vessel occlusion. Patent dural venous sinuses. There are some dependent inflammatory secretions in the lower right maxillary sinus. NECK CTA: Two vessel (bovine) arch. Carotid arteries are patent with mild atherosclerotic change. ??No hemodynamically significant stenosis by NASCET criteria in either carotid system. Patent vertebral arteries. No dissection. Procedure Note Cricket Carmona MD - 02/07/2023 CTA HEAD AND NECK WITH CONTRAST 02/07/2023 9:39 AM INDICATION: Headache, facial paresthesias, right arm paresthesia, known intracranial aneurysm. TECHNIQUE: Head and neck CT angiogram with IV contrast. CT images of the head and neck vessels obtained during the arterial phase of intravenous contrast administration. Axial helical 2D reconstructed images and multiplanar 3D MIP reconstructed images of the head and neck vessels were performed on a separate workstation. Dose reduction techniques were used. CONTRAST: 75mL Isovue-370 COMPARISON: Head and neck CTA 07/28/2022. FINDINGS: HEAD CTA: Broad-based posterior directed 2 mm aneurysm arising from the right carotid terminus is unchanged. Minor carotid siphon atherosclerosis. No high-grade vessel narrowing or proximal large vessel occlusion. Patent dural venous sinuses. There are some dependent inflammatory secretions in the lower right maxillary sinus. NECK CTA: Two vessel (bovine) arch. Carotid arteries are patent with mild atherosclerotic change. No hemodynamically significant stenosis by NASCET criteria in either carotid system. Patent vertebral arteries. No dissection. IMPRESSION: HEAD CTA: 1. 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 2. Minor intracranial atherosclerosis. No high-grade narrowing or proximal large vessel occlusion. 3. There are some dependent inflammatory secretions in the lower right maxillary sinus. NECK CTA: 1. Mild carotid artery atherosclerosis. 2. No dissection or hemodynamically significant narrowing in the neck by NASCET criteria. CRICKET CARMONA MD SYSTEM ID: [id number] Rohan Anna MD IMG CT ORDERABL ES * Head CT w/o contrast (02/07/2023 9:38 AM CDT) Anatomical Region Laterality Modality Head, SUBRAD CT NEURO, SUBRA D CT NEURO, UMP CT NEURO, RAD CT Computed Tomography Impressions 02/07/2023 10:40 AM CDT IMPRESSION: No intracranial hemorrhage, mass, or definite CT evidence of recent ischemia. CRICKET CARMONA MD SYSTEM ID: ??[id number] Narrative 02/07/2023 10:[address] HEAD W/O CONTRAST 02/07/2023 9:38 AM INDICATION: headache, facial paresthesias, R arm paresthesia, known intracranial aneurysm TECHNIQUE: CT scan of the head without contrast. Dose reduction techniques were used. CONTRAST: None. COMPARISON: Head CT 07/28/2022 FINDINGS: No intracranial hemorrhage, extraaxial collection, mass effect or CT evidence of acute infarct. ??Mild presumed chronic small vessel ischemic changes. Mild generalized volume loss. The ventricles are proportional to the sulci. Osseous structures are intact. Unremarkable orbits. Paranasal sinuses are free of significant disease. Clear mastoid air cells. Procedure Note Cricket Carmona MD - 02/07/2023 CT HEAD W/O CONTRAST 02/07/2023 9:38 AM INDICATION: headache, facial paresthesias, R arm paresthesia, known intracranial aneurysm TECHNIQUE: CT scan of the head without contrast. Dose reduction techniques were used. CONTRAST: None. COMPARISON: Head CT 07/28/2022 FINDINGS: No intracranial hemorrhage, extraaxial collection, mass effect or CT evidence of acute infarct. Mild presumed chronic small vessel ischemic changes. Mild generalized volume loss. The ventricles are proportional to the sulci. Osseous structures are intact. Unremarkable orbits. Paranasal sinuses are free of significant disease. Clear mastoid air cells. IMPRESSION: No intracranial hemorrhage, mass, or definite CT evidence of recent ischemia. CRICKET CARMONA MD SYSTEM ID: [id number] Rohan Anna MD IMG CT ORDERABL ES * (ABNORMAL) iStat Basic Chem ICA Hematocrit, POCT (02/07/2023 8:56 AM CDT) Pathologist [facility] Chloride POCT 101 94 - 109 mmol/L 02/07/2023 9:01 AM CDT [facility] Potassium POCT 4.2 3.4 - 5.3 mmol/L 02/07/2023 9:01 AM CDT [facility] Sodium POCT 139 133 - 144 mmol/L 02/07/2023 9:01 AM CDT [facility] UREA NITROGEN POCT 12 7 - 30 mg/dL 02/07/2023 9:01 AM CDT [facility] Calcium, Ionized Whole Blood POCT 4.6 4.4 - 5.2 mg/dL 02/07/2023 9:01 AM CDT [facility] Glucose Whole Blood POCT 110(H) 70 - 99 mg/dL 02/07/2023 9:01 AM CDT [facility] Anion Gap POCT 15.0(H) 3.0 - 14.0 mmol/L 02/07/2023 9:01 AM CDT [facility] Hemoglobin POCT 16.0(H) 11.7 - 15.7 g/dL 02/07/2023 9:01 AM CDT [facility] Hematocrit POCT 47 35 - 47 % 9:01 AM CDT [facility] Creatinine POCT 0.7 0.5 - 1.0 mg/dL 02/07/2023 9:01 AM CDT [facility] TOTAL CO2 POCT 28 20 - 32 mmol/L 02/07/2023 9:01 AM CDT [facility] Blood, venous BLOOD SPECIMEN / Unknown 02/07/2023 8:56 AM CDT 02/07/2023 9:01 AM CDT Rohan Anna MD LAB - [facility] [address] [facility] (1st floor, no room number) [place] [address], [facility] [phone] * CBC with platelets and differential (02/07/2023 8:55 AM CDT) WBC Count 7.2 4.0 - 11.0 10e3/uL 02/07/2023 10:15 AM CDT [facility] RBC Count 4.96 3.80 - 5.20 10e6/uL 02/07/2023 10:15 AM CDT [facility] Hemoglobin 14.6 11.7 - 15.7 g/dL 02/07/2023 10:15 AM CDT [facility] Hematocrit 45.4 35.0 - 47.0 % 02/07/2023 10:15 AM CDT [facility] MCV 92 78 - 100 fL 02/07/2023 10:15 AM CDT [facility] MCH 29.4 26.5 - 33.0 pg 02/07/2023 10:15 AM CDT [facility] MCHC 32.2 31.5 - 36.5 g/dL 02/07/2023 10:15 AM CDT [facility] RDW 14.2 10.0 - 15.0 % 02/07/2023 10:15 AM CDT [facility] Platelet Count 298 150 - 450 10e3/uL 02/07/2023 10:15 AM CDT [facility] % Neutrophils 66 % 02/07/2023 10:15 AM CDT [facility] % Lymphocytes 18 % 02/07/2023 10:15 AM CDT [facility] % Monocytes 14 % 02/07/2023 10:15 AM CDT [facility] % Eosinophils 1 % 02/07/2023 10:15 AM CDT [facility] % Basophils 1 % 02/07/2023 10:15 AM CDT [facility] % Immature Granulocytes 0 % 02/07/2023 10:15 AM CDT [facility] NRBCs per 100 WBC 0 <1 /100 023 10:15 AM CDT [facility] Absolute Neutrophils 4.7 1.6 - 8.3 10e3/uL 02/07/2023 10:15 AM CDT [facility] Absolute Lymphocytes 1.3 0.8 - 5.3 10e3/uL 02/07/2023 10:15 AM CDT [facility] Absolute Monocytes 1.0 0.0 - 1.3 10e3/uL 02/07/2023 10:15 AM CDT [facility] Absolute Eosinophils 0.1 0.0 - 0.7 10e3/uL 02/07/2023 10:15 AM CDT [facility] Absolute Basophils 0.1 0.0 - 0.2 10e3/uL 02/07/2023 10:15 AM CDT [facility] Absolute Immature Granulocytes 0.0 <=0.4 10e3/uL 02/07/2023 10:15 AM CDT [facility] Absolute NRBCs 0.0 10e3/uL 02/07/2023 10:15 AM CDT [facility] Blood STRUCTURE OF RIGHT UPPER LIMB / Unknown Venipuncture / Unknown 02/07/2023 8:55 AM CDT 02/07/2023 9:10 AM CDT Rohan Anna MD LAB - BLOOD ORD ERABLES LABORATORY [facility] [address] (1st floor, no room number) [place] [address], [facility] [phone] * Troponin T, High Sensitivity (02/07/2023 8:55 AM CDT) [facility] Troponin T, High Sensitivity 6 <=14 ng/L 02/07/2023 10:27 AM CDT [facility] Comment: Either a High Sensitivity Troponin T baseline (0 hours) value = 100 ng/L, or an increase in High Sensitivity Troponin T = 7 ng/L at 2 hours compared to 0 hours (2-0 hours), suggests myocardial injury, and urgent clinical attention is required. ?? If the 2-0 hours increase is <7 ng/L, a High Sensitivity Troponin T result above gender-specific reference ranges warrants further evaluation. Recommendations for further evaluation include correlation with clinical decision-making tool (e.g., HEART), a 3rd High Sensitivity Troponin T test 2 hours after the 2nd (a 20% change from baseline would represent concern), admission for observation, close PCC/cardiology follow-up, or urgent outpatient provocative testing. Blood STRUCTURE OF RIGHT UPPER LIMB / Unknown Venipuncture / Unknown 02/07/2023 8:55 AM CDT 02/07/2023 9:10 AM CDT Rohan Anna MD LAB - BLOOD ORD ERABLES LABORATORY [facility] [address] Lab (1st floor, no room number) [place] [address], [facility] [phone] * (ABNORMAL) Basic metabolic panel (02/07/2023 8:55 AM CDT) Sodium 139 136 - 145 mmol/L 02/07/2023 10:28 AM CDT LABORATORY Potassium 4.2 3.4 - 5.3 mmol/L 02/07/2023 10:28 AM CDT LABORATORY Chloride 101 98 - 107 mmol/L 02/07/2023 10:28 AM CDT LABORATORY Comment:Checked sample ok. Carbon Dioxide (CO2) 28 22 - 29 mmol/L 02/07/2023 10:28 AM CDT LABORATORY Anion Gap 10 7 - 15 mmol/L 02/07/2023 10:28 AM CDT LABORATORY Urea Nitrogen 10.8 8.0 - 23.0 mg/dL 02/07/2023 10:28 AM CDT LABORATORY Creatinine 0.71 0.51 - 0.95 mg/dL 02/07/2023 10:28 AM CDT LABORATORY Calcium 9.6 8.8 - 10.2 mg/dL 02/07/2023 10:28 AM CDT [facility]ORAT[facility] Glucose 113(H) 70 - 99 mg/dL 02/07/2023 10:28 AM CDT [facility] LAB[facility] GFR Estimate 89 >60 mL/min/1.7 3m2 02/07/2023 10:28 AM CDT [facility] LABORATORY Comment:eGFR calculated usin g 2020 CKD-EPI equation. Blood STRUCTURE OF RIGHT UPPER LIMB / Unknown Venipuncture / Unknown 02/07/2023 8:55 AM CDT 02/07/2023 9:10 AM CDT Rohan Anna MD LAB - BLOOD ORD ERABLES [facility] Lab [address] Lab (1st floor, no room number) [place] [id number], [facility] [phone] * Extra Purple Top Tube (02/07/2023 8:55 AM CDT) Hold Specimen [facility] 02/07/2023 10:17 AM CDT [facility] LABORATORY Blood STRUCTURE OF RIGHT UPPER LIMB / Unknown Venipuncture / Unknown 02/07/2023 8:55 AM CDT 02/07/2023 9:10 AM CDT Rohan Anna MD LAB - BLOOD ORD ERABLES [facility] [address] Lab (1st floor, no room number) [place] [id number], [facility] [phone] * Extra Green Top (Reynolds Heparin) Tube (02/07/2023 8:55 AM CDT) Hold Specimen [facility] 02/07/2023 10:17 AM CDT LABORATORY Blood STRUCTURE OF RIGHT UPPER LIMB / Unknown Venipuncture / Unknown 02/07/2023 8:55 AM CDT 02/07/2023 9:10 AM CDT Rohan Anna MD LAB - BLOOD ORD ERABLES [facility] [address] Lab (1st floor, no room number) [place] [address], [facility] [phone] * Extra Red Top Tube (02/07/2023 8:55 AM CDT) Hold Specimen [facility] 02/07/2023 10:17 AM CDT [facility] LABORATORY Blood STRUCTURE OF RIGHT UPPER LIMB / Unknown Venipuncture / Unknown 02/07/2023 8:55 AM CDT 02/07/2023 9:06 AM CDT Rohan Anna MD LAB - BLOOD ORD SHRUTHI Performing Organization Address City/[facility]/ZIP Co de Phone Number [facility] [address] Lab (1st floor, no room number) [place] [address], [facility] [phone] * Extra Blue Top Tube (02/07/2023 8:55 AM CDT) Hold Specimen [facility] 02/07/2023 10:17 AM CDT [facility] LABORATORY Blood STRUCTURE OF RIGHT UPPER LIMB / Unknown Venipuncture / Unknown 02/07/2023 8:55 AM CDT 02/07/2023 9:06 AM CDT Rohan Anna MD LAB - BLOOD ORD ERAMERVAT [facility] [address] Lab (1st floor, no room number) [place] [address], [facility] [phone] * Glucose by meter (02/07/2023 8:44 AM CDT) GLUCOSE BY METER POCT 98 70 - 99 mg/dL 02/07/2023 8:51 AM CDT [facility] LABORATORY POC Blood, Capillary BLOOD SPECIMEN / Unknown 02/07/2023 8:44 AM CDT 02/07/2023 8:51 AM CDT Provider Unknown LAB - CARLOZ POCT [facility] LABORATORY [facility] Lab [address] Lab (1st floor, no room number) [place] [address], [facility] [phone] documented in this encounter Visit Diagnoses Diagnosis Acute nonintractable headache, unspecified headache type Sinusitis, unspecified chronicity, unspecified location Benign essential hypertension Essential hypertension, benign Subconjunctival bleed, right Intracranial aneurysm Cerebral aneurysm, nonruptured documented in this encounter Administered Medications Inactive Administered Medications - up to 3 most recent administrations Medication Order MAR Action Action Date Dose Rate Site CT scan flush use As instructed, 100 mL, ONCE, On Carisa 02/07/23 at 0915, For 1 dose, This entry is for use by Radiology to intermittently used as a flush in patients receiving a CT scan. $Given 02/07/2023 9:15 AM CDT 80 mLs iopamidol (ISOVUE-370) solution 500 mL 500 mL, Intravenous, ONCE, On Carisa 02/07/23 at 0915, For 1 dose $Given 02/07/2023 9:15 AM CDT 75 mLs documented in this encounter Active and Recently Administered Medications Times are shown in CDT. Scheduled Medication Order 02/05/2023 02/06/2023 02/07/2023 CT scan flush use (COMPLETED) As instructed, 100 mL, ONCE, On Carisa 02/07/23 at 0915, For 1 dose, This entry is for use by Radiology to intermittently used as a flush in patients receiving a CT scan. 0915 ($Given - Provi kate: [place]) iopamidol (ISOVUE-370) solution 500 mL (COMPLETED) 500 mL, Intravenous, ONCE, On Carisa 02/07/23 at 0915, For 1 dose 0915 ($Given - Provi kate: [place]) documented in this encounter Care Teams Food Aide Relationship Specialty Start [place] [address] [place] [address] PCP - General 07/28/22 [place] [address] [place], [place] [address] Assigned Gastroenterology Provider 05/07/21 08/30/[address] [place], [place] [id number] Registered Dietitian Dietitian, Registered 07/20/21 Jon Eng MD [address] [place] [address] [id number] [place], [place] [address] Assigned Surgical Provider 04/14/22 documented as of this encounter
--- OUTSIDE RECORDS SUMMARY | 2023-10-30 08:45 | XMS_ITS | Referral Summary ---
Author Name Unknown Organization [place] Address [address] [facility] [place] [address] Care Team Providers Care Restaurant Line Server Name Role Phone Shar Bartlett RD Unavailable [phone] Willam Jaramillo MD Primary Care Provider Allergies Active Allergy Reactions Criticality Noted Date Comments Sulfamethoxazole-Trimet hoprim 03/24/2020 Cefuroxime Anaphylaxis High 07/02/2016 Codeine Other (See Comments) 07/02/2016 Increased BP, increased heart rate Meperidine 07/02/2016 Increased BP, increased heart rate Doxycycline Anaphylaxis High 12/12/2020 Fentanyl Nausea and Vomiting High 05/02/2023 Postoperative vomiting Metronidazole Headache,Nausea and Vomiting High 03/24/2020 Bad reaction to this ... Iron Sucrose 12/16/2020 chills, wheezing, SOB, fevers, increased BP, increased HR Magnesium Citrate Unknown High 07/02/2016 Went unconcious Morphine Other (See Comments) Medium 07/02/2016 Racing heart rate, sweating, increased BP Penicillins Anaphylaxis High 07/02/2016 Throat swells Gatifloxacin Anaphylaxis High 07/02/2016 Hydrocodone-Acetaminoph en 07/02/2016 Increased BP, increased heart rate Medications Medication Sig Dispensed Refills Start Date End Date Status budesonide-formotero l (SYMBICORT) 160-4.5 MCG/ACT Inhaler Inhale 2 puffs into the lungs daily 0 Active albuterol (PROAIR HFA/PROVENTIL HFA/VENTOLIN HFA) 108 (90 Base) MCG/ACT inhaler Inhale 1-2 puffs into the lungs every 4 hours as needed for shortness of breath / dyspnea or wheezing 0 Active albuterol (PROVENTIL) (2.5 MG/3ML) 0.083% neb solution Take 2.5 mg by nebulization every 4 hours as needed for shortness of breath / dyspnea or wheezing 0 Active rosuvastatin (CRESTOR) 20 MG tablet Take 20 mg by mouth daily 0 Active ferrous sulfate (FEROSUL) 325 (65 Fe) MG tabletIndications:Ir on deficiency anemia, unspecified iron deficiency anemia type Take 1 tablet (325 mg) by mouth daily 60 tablet 1 12/18/2020 Active atenolol (TENORMIN) 50 MG tablet Take 25 mg by mouth daily 0 Active aspirin 81 MG EC tablet Take 81 mg by mouth daily 0 Active vancomycin (FIRVANQ) 25 MG/ML oral solutionIndications: C. difficile colitis Take 5 mLs (125 mg) by mouth 4 times daily . Length of treatment to be decided by Sina Landers and Pattie. 300 mL 3 04/27/2021 Active amLODIPine (NORVASC) 5 MG tablet Take 1 tablet (5 mg) by mouth daily 30 tablet 0 05/31/2021 Active Additional Information Patient not taking.Reported on 06/07/2021 vancomycin (VANCOCIN) 125 MG capsuleIndications:R ecurrent Clostridioides difficile diarrhea Take 1 capsule (125 mg) by mouth 4 times daily 56 capsule 0 06/20/2021 Active bisacodyl (DULCOLAX) 5 MG EC tabletIndications:Hi story of Clostridioides difficile infection Take 2 tablets by mouth at bedtime two days prior to procedure. Take 2 tabs by mouth at 3pm one day prior to procedure. 4 tablet 0 06/26/2021 Active Additional Information Patient not taking.Reported on 04/10/2022 polyethylene glycol (GOLYTELY) 236 g suspensionIndication s:History of Clostridioides difficile infection Take as directed in patient instructions. One day before exam fill jug with powder and one gallon of water. At 6:00pm drink 8oz glass of mixture every 15 min until the jug is half empty. Store the rest in the refrigerator. Day of exam: 6 hours prior to exam drink the other half of mixture. 4000 mL 0 06/26/2021 Active Additional Information Patient not taking.Reported on 04/10/2022 vancomycin (VANCOCIN) 125 MG capsuleIndications:R ecurrent Clostridioides difficile diarrhea Take 1 capsule (125 mg) by mouth 4 times daily 56 capsule 1 07/18/2021 Active vancomycin (VANCOCIN) 125 MG capsuleIndications:R ecurrent Clostridioides difficile diarrhea Take 1 capsule (125 mg) by mouth daily 90 capsule 1 10/10/2021 Active vancomycin (VANCOCIN) 125 MG capsuleIndications:R ecurrent Clostridioides difficile diarrhea Take 1 capsule (125 mg) by mouth daily 90 capsule 1 01/14/2022 Active vancomycin (VANCOCIN) 125 MG capsuleIndications:R ecurrent Clostridioides difficile diarrhea Take 1 capsule (125 mg) by mouth daily 90 capsule 1 07/02/2023 Active Active Problems Problem Noted Date Diagnosed Date Recurrent Clostridioides difficile infection 07/2021 External hemorrhoids 04/07/2021 Hyperbilirubinemia 04/07/2021 Rectal bleeding 04/07/2021 Small bowel obstruction 04/07/2021 History of Clostridioides difficile infection SBO (small bowel obstruction) 04/07/2021 Peritoneal abscess 12/25/2020 Iron deficiency anemia, multifactorial Blood loss anemia assoc with FeDA along with additional losses from surgery 12/18/2020 Allergic reaction to IV iron infusion 12/18/2020 Acute nonintractable headache, unspecified heada devyn type 12/12/2020 Non-intractable vomiting wit h nausea, unspecified vomiting type 12/12/2020 Diverticular disease of colon 12/12/2020 Overview: Added automatically from request for surgery [id number] Diverticulitis of large intestine with abscess 0 04/21/2020 Diverticulitis of small intestine with abscess 0 04/19/2020 Acute diverticulitis 03/31/2020 Diverticulitis 03/28/2020 Immunizations Name Administration Dates Next Due Influenza Vaccine 65+ (Fluzone HD) 06/28/2020 Pneumococcal 23 valent 06/28/2020 Social History Tobacco Use Types Packs/Day Years [...] on file Sexual Orientation Not on file Last Filed Vital Signs Vital Sign Reading [...] Mass Index 17.34 05/02/2023 2:58 PM CDT Plan of Treatment Not on file Medical Devices Implanted Type Area Ampoule Examiner Device Identifier Shelf Expiration Date Model / Serial / Lot Whistle Tip 5 Fr X 70cm, Left Implanted:Qty: 1 on 12/13/2020 by Jerrod Jose MD at [facility] Left: Ureter BARD 01/11/2022 [id number] / / [id number] Explanted Type Area Ampoule Examiner Device Identifier Shelf Expiration Date Model / Serial / Lot Bard Whistle Tip 5 Fr. X 70 Cm Implanted:Qty: 1 Explanted:Qty: 1 on 04/21/2020 at [facility] Left: Ureter BARD 01/11/2022 [id number] / / [id number] Advance Directives For more information, please contact: [phone] Latest Code Status on File Code Status Date Activated Date Inactivated Comments Full Code 04/27/2021 4:13 AM 04/27/2021 3:52 PM All b asic and advanced life-sustaining interventions are performed as appropriate Question Answer Comments Code status determined by: Discussion with patient/ legal decision maker Code Status History Code Status Date Activated Date Inactivated Comments Full Code 04/07/2021 7:39 PM 04/09/2021 7:51 PM All b asic and advanced life-sustaining interventions are performed as appropriate Question Answer Comments Code status determined by: Discussion with patient/ legal decision maker Full Code 12/25/2020 2:40 PM 12/29/2020 8:13 PM All b asic and advanced life-sustaining interventions are performed as appropriate Question Answer Comments Code status determined by: Discussion with patient/ legal decision maker Full Code 12/18/2020 7:38 AM 12/23/2020 10:18 PM Question Answer Comments Code status determined by: Discussion with patient/ legal decision maker Full Code 12/12/2020 9:29 PM 12/18/2020 7:38 AM All bas ic and advanced life-sustaining interventions are performed as appropriate Question Answer Comments Code status determined by: Discussion with patient/ legal decision maker Care Teams Restaurant Line Server Relationship Specialty Start [place] [address] [place] [address] PCP - General 07/28/22 Shar Bartlett, TAYLA [address] [place] [address] Registered Dietitian Dietitian, Registered 07/20/21
--- OUTSIDE RECORDS SUMMARY | 2023-10-30 08:45 | XMS_ITS | Clinical Summary ---
Author Name Unknown Organization [place] Address [address] [facility] [place] [address] Care Team Providers Care Traffic Enumerator Name Role Phone Shar Bartlett RD Unavailable [phone] Willam Jaramillo MD Primary Care Provider [...] Overview: Added automatically from request for surgery [id number] Diverticulitis of large intestine with abscess 0 04/21/2020 Diverticulitis of small intestine with abscess 0 04/19/2020 Acute diverticulitis 03/31/2020 Diverticulitis 03/28/2020 Immunizations Name Administration Dates Next Due Influenza Vaccine 65+ (Fluzone HD) 06/28/2020 Pneumococcal 23 valent 06/28/2020 Family History Medical History Relation Comments Esophageal Cancer Father Abdominal Aortic Aneurysm Mother Relation Status Comments Father Mother Social History Tobacco Use Types Packs/Day Years [...] 05/02/2023 2:58 PM CDT Plan of Treatment Health Maintenance Due Date Last Done Comments ANNUAL REVIEW OF HM ORDERS 1950 CT COLONOGRAPHY 1950 DEXA 1950 FLEX SIG 1950 MAMMO SCREENING 1950 sDNA (Cologuard) 1950 HEPATITIS C SCREENING 02/03/1968 LIPID 1995 RSV VACCINE ( & 60+) (1 - 1-dose 60+ series) 2010 FALL RISK ASSESSMENT 2015 FIT 04/07/2022 04/07/2021, 06/0 02/2020, 02/23/2020 ZOSTER IMMUNIZATION (3 of 3) 04/29/2023 03/04/2023, 06/11/2011 COVID-19 Vaccine (2022- season) 2023 08/01/2022, 02/01/2022, 09/04/2021, Additional history exists INFLUENZA VACCINE (#1) 2023 , 07/26/2021, 06/28/2020, Additional history exists PHQ-2 (once per calendar year) 2023 04/10/2022, 02/28/2022, 11/13/2021 MEDICARE ANNUAL WELLNESS VISIT 02/29/2024 02/28/2023, 07/26/2021, 07/20/2020 LUNG CANCER SCREENING 04/12/2024 04/12/2023 , 03/20/2023, 12/31/2018, Additional history exists COLONOSCOPY 12/13/2025 07/03/2021, 06/15, 12/12/2020, Additional history exists COLORECTAL CANCER SCREENING 12/13/2025 ADVANCE CARE PLANNING 01/05/2026 01/05/2021 DTAP/TDAP/TD IMMUNIZATION (2 - Td or Tdap) 06/19/2026 06/19/2016 Pneumococcal Vaccine: 65+ Years Completed 06/28/2020, 08/27/2019 HPV IMMUNIZATION Aged Out No longer e ligible based on patient's age to complete this topic IPV IMMUNIZATION Aged Out No longer e ligible based on patient's age to complete this topic MENINGITIS IMMUNIZATION Aged Out No l onger eligible based on patient's age to complete this topic RSV MONOCLONAL ANTIBODY Aged Out No l onger eligible based on patient's age to complete this topic Medical Devices Implanted Type Area Etl Application Developer Device Identifier Shelf Expiration Date Model / Serial / Lot Whistle Tip 5 Fr X 70cm, Left Implanted:Qty: 1 on 12/13/2020 by Jerrod Jose MD at [facility] Left: Ureter BARD 01/11/2022 [id number] / / [id number] Explanted Type Area Etl Application Developer Device Identifier Shelf Expiration Date Model / Serial / Lot Bard Whistle Tip 5 Fr. X 70 Cm Implanted:Qty: 1 Explanted:Qty: 1 on 04/21/2020 at [facility] Left: Ureter BARD 01/11/2022 [id number] / / [id number] Advance Directives For more information, please contact: [phone] Latest Code Status on File Code Status [...] with patient/ legal decision maker Care Teams Traffic Enumerator Relationship Specialty [place] [address] [place] [address] PCP - General 07/28/[address] [place] [address] Registered Dietitian Dietitian, Registered 07/20/21
--- OUTSIDE RECORDS SUMMARY | 2023-10-30 08:45 | XMS_ITS | Encounter Summary ---
Author Name Unknown Organization [place] Address [address] [place] [address] Care Team Providers Care Agriculture Extension Specialist Name Role Phone Hakan Barton MD Unavailable Shar Bartlett RD Unavailable [phone] Jon Eng MD Unavailable [phone] Willam Jaramillo MD Primary Care Provider Reason for Visit * Reason Onset Date Comments Prior Auth - Medication 12/28/2022 vancomyc in (VANCOCIN) 125 MG capsule -PA NOT NEEDED Encounter Details Date Type Department Care Team (Late st Contact Info) Description 12/28/[address] [facility] [address] [place] [address] [place] [address] [place] [address] Prior Auth - Medication (vancomycin (VANCOCIN) 125 MG capsule -PA NOT NEEDED ) Social History Tobacco Use Types Packs/Day Years [...] Telephone Encounter - Sumaya Small RN - 01/17/2023 1:28 PM CDT Call to patient to follow up on cost of vancomycin. Patient reports that she was able to get a 90 day supply with good RX for the michele of 150$ which is much less than the 770$ for 90 days. Sumaya Small RN * Telephone Encounter - Ej Garcia - 01/01/2023 3:33 PM CDT Images from the original note were not included. Prior Authorization Not Needed per Insurance Medication: vancomycin (VANCOCIN) 125 MG capsule -PA NOT NEEDED Insurance Company: [employer] - Expected CoPay: $604.83 Pharmacy Filling the Rx: [id number] [place], [place] - [address] [facility] Pharmacy Notified: Yes Patient Notified: No Called pharmacy and pharmacy stated that PA is Not Needed and medication is covered. Pharmacy stated that they have a paid claim on medication quantity 90 for 90 day supply; however , co-pay is high.Pharmacy stated that they contacted patients insurance and patients insurance stated that patient has a deductible that has not been met; as a result, co-pay is high. Shivam at filling pharmacy stated that insurance states that patient would have to meet deductible prior to initiating a PA Tier Exception for medication. Requested pharmacy to contact patient on cost prior to picking up medication.Lainez michele Quantity 90 capsules is $770. Insurance also stated that PA is Not Needed and medicationis covered. * Telephone Encounter - Sumaya Small RN - 12/28/2022 9:51 AM CDT Prior Authorization Retail Medication Request Medication/Dose: vancomycin ICD code (if different than what is on RX): Previously Tried and Failed: Rationale: Insurance Name: Insurance ID: Pharmacy Information (if different than what is on RX) Name: Phone: documented in this encounter Plan of Treatment Not on file documented as of this encounter Visit Diagnoses Not on filedocumented in this encounter Care Teams Agriculture Extension Specialist Relationship Specialty Start [place] [address] [place] [address] PCP - General 07/28/22 [place] [address] [place] [address] Assigned Gastroenterology Provider 05/07/21 08/30/[address] [place] [address] Registered Dietitian Dietitian, Registered 07/20/21 Jon nEg MD [address] [place] [address] [id number] [place] [address] Assigned Surgical Provider 04/14/22 documented as of this encounter
--- OUTSIDE RECORDS SUMMARY | 2023-10-30 08:45 | XMS_ITS | Clinical Summary ---
Author Name Unknown Organization [employer] [facility] Address [place], [place] [address] Care Team Providers Care Tribal Judge Name Role Phone Tamiko Ruiz MD Unavailable [phone] Willam Jaramillo MD Primary Care Provider Mary Kinney RN, BSN Unavailable [phone] Tobin Ardon MD Unavailable [phone] Allergies Active Allergy Reactions Criticality Noted Date Comments Cefuroxime Anaphylaxis,Dyspnea, Hypertension,Tachyca rdia High 12/10/2013 Blood pressure rises, heart races and pt has a hard time breathing Meperidine Shortness Of Breath,Hypertension, Tachycardia Medium 07/02/2011 Doxycycline Other - Describe In Comment Field 04/07/2020 Burning sensation through whole body Metronidazole Flushing Medium 03/23/2020 Nausea, flushing, felt on fire, dizzy. Iron Sucrose Anaphylaxis High 12/16/2020 chills, wheezing, SOB, fevers, increased BP, increased HR Chills, SOB, increase HR, wheezing, fever, increase BP Magnesium Citrate Diarrhea,Nausea And Vomiting,Syncope High 11/21/2012 Hyperemesis, pt went unconscious, had severe diarrhea and fainted Morphine Shortness Of Breath,Diaphoresis,H ypertension,Tachycar guillermo Medium 07/02/2011 Blood pressure rises, heart races and pt c/o sweating Unlisted Allergen (Include Detail In Comments) Anaphylaxis High 09/30/2015 Allergic to almost all antibiotics. Can have Vancomycin Penicillins Anaphylaxis,Throat Swelling/Closing High 07/02/2016 Throat swells Gatifloxacin Anaphylaxis,Dyspnea, Hypertension,Tachyca rdia High 12/10/2013 Blood pressure rises, heart races and pt has a hard time breathing Sulfamethoxazole-Trimet hoprim Nausea Only,Dizziness Medium 09/26/2015 Bactrim Ampicillin-Sulbactam Nausea And Vomiting Medium 2014 Hydrocodone-Acetaminoph en Dyspnea,Hypertension ,Tachycardia Medium 12/10/2013 Blood pressure rises, heart races and pt has a hard time breathing Medications Medication Sig Dispensed Refills Start Date End Date Status albuterol HFA 90 mcg/actuation inhalerIndications:C hronic obstructive pulmonary disease, unspecified COPD type (HC) Inhale 1-2 Puffs by mouth every 4 hours if needed. 1 Inhaler 6 07/13/2019 Active NebulizerIndications :COPD exacerbation (HC) Nebulizer, disposable neb kit x 4, reuseable neb kit x 1, mask x 1, filters x 1. Frequency of use: daily; Medication: duoneb Length of need:lifetime 1 Device 0 12/21/2019 Active albuterol (PROVENTIL) 0.083 % neb solutionIndications: COPD exacerbation (HC) Inhale 3 mL via a nebulizer every 4 hours if needed (sob / wheezing). 1 box 1 01/07/2020 Active albuterol-ipratropiu m (DUONEB) (2.5-0.5 mg) in 3 mL NEBULIZATION solutionIndications: COPD with chronic bronchitis INHALE 3 ML VIA A NEBULIZER 4 TIMES DAILY. 1 box 2 04/19/2020 Active vancomycin (FIRVANQ) 25 mg/mL solr Take 125 mg by mouth. 0 04/27/2021 Active rosuvastatin (CRESTOR) 20 mg tabletIndications:Co ronary artery disease involving king salmon coronary artery of king salmon heart without angina pectoris Take 1 Tablet (20 mg) by mouth once daily with evening meal. EVERY EVENING 90 Tablet 3 02/18/2023 Active losartan (COZAAR) 100 mg tabletIndications:HT N (hypertension) Take 1 Tablet (100 mg) by mouth once daily. 90 Tablet 3 02/28/2023 Active budesonide-formotero L (Symbicort) 160-4.5 mcg/actuation (160-4.5 mcg each actuation) inhalerIndications:C hronic obstructive pulmonary disease, unspecified COPD type (HC) Inhale 2 Puffs by mouth two times daily. 1 Each 5 04/23/2023 Active apixaban (ELIQUIS) 5 mg tabletIndications:At rial fibrillation, unspecified type (HC) Take 1 Tablet (5 mg) by mouth two times daily. 60 Tablet 11 07/22/2023 Active metoprolol tartrate (LOPRESSOR) 50 mg tabletIndications:At rial fibrillation, unspecified type (HC),HTN (hypertension) Take 1 Tablet (50 mg) by mouth two times daily. 180 Tablet 1 07/23/2023 Active furosemide (LASIX) 20 mg tabletIndications:Pe ashlee edema Take 1 Tablet (20 mg) by mouth every morning. 5 Tablet 0 08/05/2023 Active metoprolol succinate SR (TOPROL XL) 200 mg Sustained-Release tabletIndications:Pa roxysmal atrial fibrillation (HC) Take 1 Tablet (200 mg) by mouth once daily. 90 Tablet 3 09/13/2023 Active Active Problems Problem Noted Date Diagnosed Date Adenocarcinoma of lung 05/08/2023 Nodule of left lung 03/19/2023 Overview: 1.[address] in [place] 03/10/2023 Supraventricular tachycardia 02/18/2023 Coronary artery disease 07/18/2022 Overview: CT coronary test from 12/31/2018 IMPRESSION: 1. Prominent, nonobstructive coronary artery disease. A. Total calcium score is 612.6 representing 80th percentile for matched age and sex cohort. B. No obstructive coronary lesion to account for chest pain. C. Aggressive medical management recommended. Carotid aneurysm, right 06/20/2022 Overview: CT 03/2022- Incidental shallow 2 mm outpouching of the right carotid terminus which could represent aneurysm or infundibulum. 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 Chronic back pain 05/19/2013 Overview: S/P 5 lumbar surgeries. Colon cancer screening 02/23/2013 Overview: 2012 [facility] colonoscopy positive for: diverticula and 10 mm polyp at the hepatic flexure with pathology showing tubular adenoma with low-grade dysplasia, Dr. Kruse at [facility] recommend repeat colonoscopy in 3 years in 2015. Adjustment disorder with depressed mood 08/29/20 12 Overview: Aug 2012: family stress, started wellbutrin SR. September 2012: dose adjusted to wellbutrin SR 100mg twice daily. Tobacco use disorder 08/29/2012 Overview: Successfully Quit March 2013. Resolved Problems Problem Noted Date Diagnosed Date Resolved Date Abdominal aortic aneurysm (A AA) without rupture 04/05/2021 11/20/[address] 04/29/2020 2 Overview: Patient with pelvic abscess due to diverticulitis. Sigmoid colectomy. 04/2020 Acute diverticulitis 03/28/2020 022 Acute blood loss anemia 12/09/2019 10/0 02/2022 GI bleed 12/09/2019 07/18/2022 Diverticulosis of large intestine 11/07/2012 04/29/2020 Overview: Colonoscopy 10/2012 severe diverticulosis incomplete exam, recommend CT colonography Weight loss 11/06/2012 04/29/2020 Overview: Unsuccessful Colonoscopy Oct 2012, Dr. Chris recommended CT of Colonography. [facility] at [facility] Nov 2012, see consult note. Counseling for hormone replacement therapy 10/09/2012 07/18/2022 Overview: on ORal estrogen for over 15 years since hysterectomy and oophorectomy. September 2012: stopping estrogen, checking dexa-scan. Abdominal pain, epigastric 07/23/2012 1 Overview: EGD 07/2012 normal surgical changes Hypertension 09/29/2011 06/20/2022 Overview: January 2014: blood pressure high on Triamterene/HCTZ combo plus atenolol. Adding 2.5mg of amlodipine and recheck. Encounters Date Type Department Care Team Description 10/11/2023 Orders Only [address] [address] Willam Jaramillo MD 1 scan: (1-Ord) [facility], CHEST W/CONTRAST, 10/10/2023 09/19/2023 Orders Only [facility] Scanner 1 scan: (1-Ord) [facility], CT EYES TO THIGHS, CANCER RESTAGING, 09/19/2023 09/13/2023 1:00 PM COPER HAND Office Visit [facility] [address] [place] [address] Dannie Beckman MD 08/08/2023 Orders Only [facility] Scanner 1 scan: (1-Ord) [facility], ANGIO CHEST PT PROTOCOL, 08/08/2023 08/04/[address] [address] Willam Jaramillo MD Refill Request (Metoprolol Tartrate) 08/03/[address] [address] Willam Jaramillo MD Refill Request (Crestor, metoprolol, losartan, digoxin, symbicort, eliquis) 08/02/2023 Refill [facility] [address] [place] [address] Willam Jaramillo MD Refill Request (Metoprolol/) from Last 3 Months Immunizations Name Administration Dates Next Due COVID-19 vaccine (Moderna 50 mcg/0.5mL) 12YO+ BIVALENT PF, MDV 08/01/2022 COVID-19 vaccine (Moderna Tanner karena 50mcg/0.25mL) PF, MDV 02/01/2022 COVID-19 vaccine (Pfizer-Bio NTech 30mcg/0.3mL) PF, MDV 09/04/2021,01/07/2021,12/06/2020 Influenza, High-dose Inactivated 06/28/2020 Influenza, High-dose Quadriv alent Inactivated 06/28/2020 Influenza, IIV3 (Age >=3 years) 10/29/2012 Influenza, IIV4 08/02/2015 Influenza, Inactivated AIIV4 (Age 65+ Years) Preserv Free 08/01/2022,07/26/2021 Pneumococcal Poly,23-Valent (Pneumovax) 06/28/20 Pneumococcal conj 13-Valent (Prevnar 13) 019 Tdap 06/19/2016 Zoster (Shingrix-RZV, recombinant) 03/04/2023 Zoster (Zostavax-ZVL, live) 06/11/2011 Family History Medical History Relation Name Comments Heart attack Brother Cancer Father STomach and eso phageal Cancer-breast Maternal Aunt Other Mother AAA Other Paternal Grandfather dementi a Diabetes Paternal Grandmother Heart Disease Paternal Grandmother Heart Disease Sister rheumatic feve r, irregular heart rhythm Relation Name Status Comments Brother Father Maternal Aunt Mother Paternal Grandfather Paternal Grandmother Sister Social History Tobacco Use Types Packs/Day Years Used Date Smoking Tobacco: Former Cigarettes 1 55 0 03/30/1958 - 03/30/2013 Smokeless Tobacco: Never Tobacco Cessation:Counseling Given: Not Answered Alcohol Use Standard Drinks/Week Comments Not Currently 1 (1 standard drink = 0.6 oz pur e alcohol) 2-3 a week - More sometimes. PHQ-2 Answer Date Recorded PHQ-2 TOTAL SCORE 0 02/28/2023 Social Connections Answer Date Recorded Frequency of Communication with Friends and Fami ly Not on file 07/19/2023 Financial Resource Strain Answer Date R ecorded Difficulty of Paying Living Expenses 3 07/16/2022 Difficulty of Paying Living Expenses Not on file 07/16/2022 Food Insecurity Answer Date Recorded Worried About Running Out of Food in the Last Ye ar 1 07/16/2022 Transportation Needs Answer Date Record ed Lack of Transportation (Medical) 1 07/16/2022 Housing Stability Answer Date Recorded Unable to Pay for Housing in the Last Year 1 07/16/2022 Sex and Gender Information Value Date Recorded Sex Assigned at Not on file Gender Identity Not on file Sexual Orientation Not on file Obstetrics History Last Filed Vital Signs Vital Sign Reading Time Taken Comments Blood Pressure 116/52 07/22/2023 2:58 PM CDT Pulse 74 07/22/2023 2:58 PM CDT Temperature 36.3 ??C (97.3 ??F) 04/12/2023 11:35 AM C DT Respiratory Rate 16 04/12/2023 1:45 PM CDT Oxygen Saturation 93% 07/22/2023 2:58 PM CDT Inhaled Oxygen Concentration - - Weight 45.8 kg (101 lb) 07/22/2023 2:58 PM CDT Height 163.8 cm (5' 4.5) 04/12/2023 7:33 AM CDT Body Mass Index 17.07 04/12/2023 7:33 AM CDT Plan of Treatment Health Maintenance Due Date Last Done Comments DEXA/DXA scan for age 65+ 2015 Zoster (shingles) series for age 50+ (2 of 2) 04/29/2023 03/04/2023, 06/11/2011 Influenza for age 65+ 06/14/2023 08/01/2022 , 07/26/2021, 06/28/2020, Additional history exists COVID-19 vaccine series ( season) 2023 08/28/2023, 08/01/2022, 02/01/2022, Additional history exists Colonoscopy through age 75 12/13/202312/12, 12/11/2019, 11/06/2012 Medicare Wellness for age 65+ 02/28/2024, 07/26/2021, 07/20/2020, Additional history exists Depression screening for age 12+ 02/29/2024 02/28/2023, 07/26/2021, 07/21/2020, Additional history exists BMI (ht and wt on same day) for age 18+ 04/09/2024 04/09/2023, 02/28/2023, 08/01/2022, Additional history exists Low Dose CT (for lung CA) ag e 50-80 10/10/2024 10/10/2023, 07/25/2023, 04/12/2023, Additional history exists Tetanus booster 06/19/2026 06/19/2016 Lipids for age 45-75 07/16/2027 07/16/2022, 04/04/2021, 06/15/2020, Additional history exists Tdap Completed 06/19/2016 Fecal testing non-DNA (FIT,FOBT,iFOBT) for age 45-75 Discontinued 02/23/2020, 12/09/2019, 04/26/2016, Additional history exists Pneumococcal series for age 65+ Completed 0, 08/27/2019 Hepatitis C screening for ag e 18-79 Completed 07/20/2020 Procedures Procedure Name Priority Date/Time Associated Diagnosis Comments CT CHEST W Routine 10/10/2023 12:00 AM COPER HAND Nodule of left lung SCAN-PET SCAN 09/19/2023 12:00 AM COPER HAND SCAN-CT INTERPRETATION 12:00 AM CDT from Last 3 Months Results * CT CHEST W (10/10/2023 12:00 AM COPER HAND) Anatomical Region Laterality Modality CHEST, THORAX, HEART Computed To mography Willam Jaramillo MD CT * SCAN-PET SCAN (09/19/2023 12:00 AM COPER HAND) Anatomical Region Laterality Modality Other Scanner OTHER * SCAN-CT INTERPRETATION (08/08/2023 12:00 AM CDT) Anatomical Region Laterality Modality Other Scanner OTHER from Last 3 Months Advance Directives Latest Code Status on File Code Status Date Activated Date Inactivated Comments Full Code 04/12/2023 7:10 AM 04/12/2023 6:02 PM Question Answer Comments Code Status Discussion: Unable to Assess Preferences, Provider to review later Code Status History Code Status Date Activated Date Inactivated Comments Full Code 12/09/2019 9:48 PM 12/15/2019 8:26 PM Full Code 09/30/2015 9:14 AM 09/30/2015 2:09 PM Full Code 09/30/2015 7:36 AM 09/30/2015 9:14 AM Full Code 02/22/2014 12:58 PM 02/23/2014 2:14 AM Care Teams Tribal Judge Relationship Specialty Start [place] [address] [place] [address] PCP - General Family Practice 5/8/23 [place] [address] [place] [address] [phone] Surgery - Colon and Rectal 03/18/20 Mary Kinney, RN, BSN [address] [place] [id number] Nurse Navigator - Oncology Registered Nurse 04/12/23 Tobin Ardon MD [address] [place] [id number] Surgery - Cardiothoracic 04/02/23
--- OUTSIDE RECORDS SUMMARY | 2023-10-30 08:46 | XMS_ITS ---
Author Name Unknown Organization [facility] Address [address] [place] [address] Care Team Providers Care Alcohol Still Operator Name Role Phone Unavailable Unavailable Unavailable Surgery Details Not on file Complications Check Surgery Details section. Procedure Estimated Blood Loss Check Surgery Details section. Procedure Findings Check Surgery Details section. Procedure Specimens Taken Check Surgery Details section.
--- OUTSIDE RECORDS SUMMARY | 2023-10-30 08:46 | XMS_ITS | Encounter Summary ---
Author Name Unknown Organization [facility] Address [address] [place] [address] Care Team Providers Care Sack Keeper Name Role Phone [facility], [facility] Primary Care Provider + Hakan Barton MD Unavailable Venus Barnes MD Primary Care Provider [phone] Unavailable [phone] Jon Eng MD Unavailable [phone] Willam Jaramillo MD Primary Care Provider Encounter Details Date Type Department Care Team (Late st Contact Info) Description 01/10/2021 Orders Only [facility] [address] [place] [address] Tamiko Ruiz MD [facility] [address] [facility] [address] [address] Abdominal pain (Primary Dx) Social History Tobacco Use Types Packs/Day Years Used Date Smoking Tobacco: Former Cigarettes Comments:quit 2013 Alcohol Use Standard Drinks/Week Comments Yes 0 (1 standard drink = 0.6 oz pur e alcohol) occas Sex and Gender Information Value Date Recorded Sex Assigned at Not on file Gender Identity Not on file Sexual Orientation Not on file COVID-19 Exposure Response Date Recorded In the last month, have you been in contact with someone who was confirmed or suspected to have Coronavirus / COVID-19? No / Unsure 01/10/2021 2:15 PM CDT documented as of this encounter Plan of Treatment Not on file documented as of this encounter Visit Diagnoses Diagnosis Abdominal pain- Primary Abdominal pain, unspecified site documented in this encounter Additional Health Concerns Infection Onset Date Last Indicated Resolved Time Rule Out C-difficile 04/26/2021 04/26/2021 021 9:49 PM CDT C-difficile 04/26/2021 07/18/2021 08/17/2021 11:3 9 PM CDT Rule Out C-difficile 05/22/2021 05/22/2021 021 9:15 PM CDT Rule Out C-difficile 06/20/2021 06/20/2021 021 3:31 PM CDT Rule Out C-difficile 07/18/2021 07/18/2021 021 9:41 PM CDT Rule Out C-difficile 09/27/2021 09/27/2021 021 2:32 PM SPRING FITTER HELPER Rule Out C-difficile 01/14/2022 01/14/2022 022 6:15 PM CDT documented as of this encounter Care Teams Sack Keeper Relationship Specialty Start Date End Date [facility] [address] [place] [phone] PCP - General 07/05/16 07/02/21 [place] [address] [place] [address] PCP - General 07/03/21 07/27/22 [place] [address] [place] [address] PCP - General 07/28/22 [place] [address] [place] [address] Assigned Gastroenterology Provider 05/07/21 08/30/[address] [place], [place] [phone] Registered Dietitian Dietitian, Registered 07/20/21 Jon Eng MD [address] [facility] [id number] [place] [address] Assigned Surgical Provider 04/14/22 documented as of this encounter
--- OUTSIDE RECORDS SUMMARY | 2023-10-30 08:46 | XMS_ITS | Encounter Summary ---
Author Name Unknown Organization [facility] Address [address] [facility] [place] [address] Care Team Providers Care Electric Well Logging Operator Name Role Phone Hakan Barton MD Unavailable [phone] Venus Barnes MD Primary Care Provider [phone] Unavailable [phone] Jon Eng MD Unavailable [phone] Willam Jaramillo MD Primary Care Provider Encounter Details Date Type Department Care Team (Late st Contact Info) Description 07/18/2021 [facility] [address] [place] [address] Jessica Davis RN Diarrhea, unspecified type Social History Tobacco Use Types Packs/Day Years [...] have Coronavirus / COVID-19? No / Unsure 07/03/2021 1:09 PM CDT documented as of this encounter Plan of Treatment Not on file documented as of this encounter Procedures Procedure Name Priority Date/Time Associated Diagnosis Comments CLOSTRIDIUM DIFFICILE TOXIN B Routine 07/18/2021 4:29 PM CDT Diarrhea, unspecified type CALPROTECTIN FECES Routine 07/18/2021 4: 29 PM CDT Diarrhea, unspecified type documented in this encounter Results * Calprotectin Feces (07/18/2021 4:29 PM CDT) Calprotectin Feces 34.1 0.0 - 49.9 mg/kg 07/19/2021 1:06 PM CDT [facility] Comment:Normal Stool RECTAL CONTENTS / Unknown Non-blood Collection / Unknown 07/18/2021 4:29 PM CDT 07/18/2021 4:29 PM CDT Hakan Barton MD LAB - STOOLS [facility] Specialty Core Lab [address] [facility], [address] [place] [id number], [facility] [phone] * (ABNORMAL) Clostridium difficile Toxin B PCR (07/18/2021 4:29 PM CDT) C Difficile Toxin B by PCR Positive( A) Negative 07/18/2021 9:41 PM CDT [facility] Comment:Detection of C. diff icile nucleic acid in stools confirms the presence of these organisms in diarrheal patients but may not indicate that C. difficile are the etiologic agents of the diarrhea. Results from the Xpert C. difficile assay should be interpreted in conjunction with other laboratory and clinical data available to the clinician. Stool RECTAL CONTENTS / Unknown Non-blood Collection / Unknown 07/18/2021 4:29 PM CDT 07/18/2021 4:30 PM CDT Narrative [facility] - 07/18/2021 9:41 PM CDT The [employer]ep[employer]id Xpert C. difficile Assay, performed on the [employer]?? Instrument Systems, is a qualitative in vitro diagnostic test for rapid detection of toxin B gene sequences from unformed (liquid or soft) stool specimens collected from patients suspected of having Clostridioides difficile infection (CDI). The test utilizes automated real-time polymerase chain reaction (PCR) to detect toxin gene sequences associated with toxin producing C. difficile. The Xpert C. difficile Assay is intended as an aid in the diagnosis of CDI. Hakan Barton MD LAB - [place] [facility] ORDERABLES [facility] Infectious Diseases Diagnostic Lab (IDDL) [address] [facility], [address] [place] [address] [phone] documented in this encounter Visit Diagnoses Diagnosis Diarrhea, unspecified type documented in this encounter Additional Health Concerns Infection Onset Date Last Indicated Resolved Time C-difficile 04/26/2021 07/18/2021 08/17/2021 11:3 9 PM CDT Rule Out C-difficile 07/18/2021 07/18/2021 021 9:41 PM CDT Rule Out C-difficile 09/27/2021 09/27/2021 021 2:32 PM DRY CLEANING COUNTER CLERK Rule Out C-difficile 01/14/2022 01/14/2022 022 6:15 PM CDT documented as of this encounter Care Teams Electric Well Logging Operator Relationship Specialty [place] [address] [place] [address] PCP - General 07/03/21 07/27/22 [place] [address] [place] [address] PCP - General 07/28/22 [place] [address] [place] [address] Assigned Gastroenterology Provider 05/07/21 08/30/[address] [place] [address] Registered Dietitian Dietitian, Registered 07/20/21 Jon Eng MD [address] [id number], [place] [address] Assigned Surgical Provider 04/14/22 documented as of this encounter
--- OUTSIDE RECORDS SUMMARY | 2023-10-30 08:46 | XMS_ITS | Referral Summary ---
Author Name Unknown Organization [facility] Address [address] [place] [address] Care Team Providers Care Weight Trainer Name Role Phone Elsewhere, Pcp Primary Care Provider Unavailabl e Source Comments Patient records contain information from all sites at [facility]. For routine questions regarding patient records, call [phone] during business hours, M-F 8:00 AM - 5:00 PM Central Time. Record requests for emergency care only can be directed to [phone] at any time.[facility] Encounters Date Type Department Care Team Description 10/25/2023 Clinical Communication Department of Radiation Oncology in [place], [place] [address] [place] [address] Hanh Marquez M.D. 09/24/2023 8:58 AM STATIONARY STEAM ENGINEER - 09/24/2023 9:22 AM [facility] Hospital Encounter Department of Radiation Oncology in [address] [address] Hanh Marquez M.D. 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) (Primary Dx) from Last 3 Months Allergies Active Allergy Reactions Criticality Noted Date Comments Acetaminophen Hypertension High 10/15/2022 Amphetamine Other (see comments) 12/11/2012 Benzedrine- Hypertension, nausea Ampicillin-Sulbactam Nausea And Vomiting Medium 2014 Cefuroxime Anaphylaxis,Hyperten bean,Shortness of breath (Reselect Reaction),Palpitatio ns High 12/09/2012 Blood pressure rises, heart races and pt has a hard time breathing Codeine Hypertension,Other (see comments) 12/09/2012 Increased BP, increased heart rate Increase BP, Increase HR Doxycycline Anaphylaxis,Other (see comments) High 04/07/2020 Burning sensation through whole body Fentanyl Nausea And Vomiting High 05/02/2023 Postoperative vomiting Metronidazole Nausea And Vomiting,Other (see comments),Headache High 03/23/2020 Bad reaction to this ... Nausea, flushing, felt on fire, dizzy. Gatifloxacin Anaphylaxis,Hyperten bean,Shortness of breath (Reselect Reaction),Palpitatio ns High 12/09/2012 Blood pressure rises, heart races and pt has a hard time breathing Hydrocodone Hypertension High 10/15/2022 Hydrocodone-Acetaminophen Hypertension,S hortne ss of breath (Reselect Reaction),Palpitatio ns Medium 12/09/2012 Increased BP, increased heart rate Increase HR, Increase BP Blood pressure rises, heart races and pt has a hard time breathing Iron Sucrose Anaphylaxis High 12/16/2020 chills, wheezing, SOB, fevers, increased BP, increased HR Chills, SOB, increase HR, wheezing, fever, increase BP chills, wheezing, SOB, fevers, increased BP, increased HR Chills, SOB, increase HR, wheezing, fever, increase BP Magnesium Citrate Diarrhea,Hypertensio n,Nausea And Vomiting,Other (see comments) High 11/21/2012 Went unconcious Hyperemesis, pt went unconscious, had severe diarrhea and fainted nausea Meperidine Anaphylaxis,Hyperten bean,Shortness of breath (Reselect Reaction),Palpitatio ns High 07/02/2011 Increased BP, increased heart rate Increase HR, Increase BP Morphine Other (see comments),Hypertensi on,Shortness of breath (Reselect Reaction),Anaphylaxi s,Palpitations High 07/02/2011 Racing heart rate, sweating, increased BP Racing heart, sweating Blood pressure rises, heart races and pt c/o sweating Penicillins Anaphylaxis,GI intolerance High 07/02/2016 Throat swells Sulbactam GI intolerance 10/15/2022 Sulfamethoxazole GI intolerance 10/15/2022 Sulfamethoxazole-Trimetho prim Other (see comments),Nausea Only Medium 09/26/2015 Bactrim Trimethoprim GI intolerance 10/15/2022 Medications Medication Sig Dispensed Refills Start Date End Date Status albuterol 2.5 mg /3 mL nebulizer solution Inhale 2.5 mg every 4 (four) hours as needed for shortness of breath or wheezing. 0 01/07/2020 Active amLODIPine (NORVASC) 2.5 mg tablet Take 2.5 mg by mouth daily. 0 04/08/2023 Active budesonide-formoteroL (SYMBICORT) 160-4.5 mcg/actuation inhaler Inhale 2 puffs 2 (two) times a day as needed. 0 04/23/2023 Active losartan (COZAAR) 100 mg tablet Take 100 mg by mouth daily. 0 02/28/2023 Active metoprolol succinate (TOPROL-XL) 100 mg 24 hr tablet Take 100 mg by mouth daily. 0 02/18/2023 Active vancomycin (VANCOCIN) 125 mg capsule Take 125 mg by mouth daily. 0 06/20/2021 Active rosuvastatin (CRESTOR) 20 mg tablet Take 20 mg by mouth daily. 0 02/18/2023 Active nebulizer accessories kit Nebulizer, disposable neb kit x 4, reuseable neb kit x 1, mask x 1, filters x 1. Frequency of use: daily; Medication: duoneb Length of need:lifetime 0 12/21/2019 Active vancomycin (FIRVANQ) 25 mg/mL solution Take 125 mg by mouth. 0 04/27/2021 Active azithromycin (ZITHROMAX) 250 mg tablet TAKE 1 TABLET (250 MG) BY MOUTH EVERY DAY FOR 4 DAYS STARTING TOMORROW 04/30/23 0 04/29/2023 Active diazePAM (VALIUM) 5 mg tablet TAKE 1 TABLET BY MOUTH EVERY 6 HOURS IF NEEDED FOR ANXIETY. TAKE 30 MINUTES PRIOR TO MRI. MAY REPEAT ONCE 0 04/18/2023 Active HYDROcodone-acetamino phen (NORCO) 5-325 mg per tablet TAKE 1 tablet orally every 4 hours as needed for pain. as needed for cancer related pain.* 0 05/11/2023 Active lidocaine-prilocaine (EMLA) 2.5-2.5 % cream 1 application topically once as needed for pain. Apply pea sized amount over port site 60 minutes prior to use; cover with plastic wrap.* 0 05/06/2023 Active lisinopriL (PRINIVIL,ZESTRIL) 40 mg tablet Take 40 mg by mouth daily. 0 02/13/2023 Active ondansetron ODT (ZOFRAN-ODT) 4 mg disintegrating tablet DISSOLVE ONE OR TWO TABLETS IN MOUTH EVERY EIGHT HOURS NEEDED FOR NAUSEA OR VOMITING* 0 05/02/2023 Active prochlorperazine (COMPAZINE) 10 mg tablet Take 10 mg by mouth every 6 (six) hours as needed. for nausea 0 04/27/2023 Active oxyCODONE-acetaminoph en (PERCOCET) 5-325 mg per tablet 0 05/11/2023 Active LORazepam (ATIVAN) 0.5 mg tablet Take 1 tablet (0.5 mg total) by mouth 2 (two) times a day. 60 tablet 0 05/16/2023 Active ondansetron ODT (ZOFRAN-ODT) 4 mg disintegrating tablet Dissolve 1 tablet (4 mg total) in the mouth every 8 (eight) hours as needed for nausea or vomiting. 20 tablet 3 05/21/2023 Active OLANZapine (ZyPREXA) 5 mg tablet Take 5 mg by mouth at bedtime. 0 05/31/2023 Active codeine-guaiFENesin (ROBITUSSIN-AC) 10-100 mg/5 mL liquid Take 10 mL by mouth Medrol Dose Pack scheduling ONLY. 0 06/03/2023 Active lidocaine 2 % mouth solution Take 5 mL by mouth 4 (four) times a day. 0 05/28/2023 Active diphenhydramine-lidoc stanton-antacid (MAGIC MOUTHWASH) 1:1:1 Apply 5 mL to cheek. 0 06/24/2023 Active Active Problems Problem Noted Date Diagnosed Date Dehydration 07/02/2023 Anuria 07/02/2023 Malignant Neoplasm Of Lung Adenocarcinoma Right 05/08/2023 Malignant Neoplasm Of Lung Lower Lobe Or Bronchu s Left 05/07/2023 Cancer Staging:Clinical stage from 04/12/2023:Stage IIIB(cT1b, cN3, cM0) - Unsigned Immunizations Name Administration Dates Next Due HZV (ZOSTAVAX) 06/11/2011 Influenza (IM) Preservative Free 07/04/2009 Influenza Split 06/19/2012 Influenza TIV (IM) 10/29/2012 Influenza high dose QV(65 years or older) (PF) 0 06/28/2020 Influenza, Quadrivalent, Adjuvanted, Preservativ e Free 08/01/2022,07/26/2021 Influenza, Seasonal, Injectable 10/29/2012,08/18 Influenza, Unspecified 08/02/2015,06/19/2012 PCV13 08/27/2019 PPSV23 06/28/2020 RZV (SHINGRIX) 03/04/2023 Tdap 06/19/2016 influenza high dose (65 years or older) (PF) influenza vaccine QV(FLUBLOK) (18 years or older ) (PF) 08/27/2019 Social History Tobacco Use Types Packs/Day Years Used Date Smoking Tobacco: Former Cigarettes 1 Q uit: 2012 Passive Smoke Exposure: Current Smokeless Tobacco: Never Tobacco Cessation:Counseling Given: Not Answered Passive Exposure Comments: Alcohol Use Standard Drinks/Week Comments Yes 0 (1 standard drink = 0.6 oz pur e alcohol) Nutrition Answer Date Recorded Nutrition: EVOO Fat Source Unknown 04/27 Nutrition: Servings of Fruits/Vegetables per Day Not on file 04/27/2021 Dental Answer Date Recorded Dental: Regular Dentist Unknown 04/27/20 21 Sex and Gender Information Value Date Recorded Sex Assigned at Not on file Gender Identity Not on file Sexual Orientation Not on file Last Filed Vital Signs Vital Sign Reading Time Taken Comments Blood Pressure 153/69 08/28/2023 11:29 AM STATIONARY STEAM ENGINEER Pulse 66 08/28/2023 11:29 AM STATIONARY STEAM ENGINEER Temperature 36.5 ??C (97.7 ??F) 08/28/2023 11:[address] Respiratory Rate - - Oxygen Saturation - - Inhaled Oxygen Concentration - - Weight 44.7 kg (98 lb 8.7 oz) 08/28/2023 11:29 A M STATIONARY STEAM ENGINEER Height 166 cm (5' 5.35) 12/09/2012 8:39 AM STATIONARY STEAM ENGINEER Body Mass Index - - Plan of Treatment Upcoming Encounters Date Type Department Care Team (Latest Contact Info) Description 01/07/2024 9:00 AM CDT Clinical Communication Virtual Review in [place], [place] [address] [place] [address] 01/09/2024 9:00 AM CDT Appointment Department of Radiation Oncology in [place], [place] [address] [place] [phone] Hanh Marquez M.D. [address] [place] [address] Medical Devices Implanted Type Area Asphalt Tamping Machine Operator Device Identifier Shelf Expiration Date Model / Serial / Lot Hardware E.G. Pins/Screws/R ods Hardware e.g. pins/screws/ rods Duodenum Description:Williams Procedures Procedure Name Priority Date/Time Associated Diagnosis Comments OUTSIDE NM PET Routine 09/19/2023 4:05 PM STATIONARY STEAM ENGINEER from Last 3 Months Results * PET skull to mid thigh-Outside NM Pet (09/19/2023 4:05 PM STATIONARY STEAM ENGINEER) Narrative IIMS - 09/24/2023 8:53 AM STATIONARY STEAM ENGINEER This order has been created and auto-finalized to support the import of outside images. If available, original interpretation can be found on the Media Tab in Chart Review, in Document Viewer, or as an image in QREADS. If a re-interpretation or overread is required please follow defined workflow. ?? Provider Not In System IMG NM PROCEDURES IIMS NA from Last 3 Months Care Teams Weight Trainer Relationship Specialty Start Date End Date Elsewhere, Pcp PCP - General Family Medicine 05/07/23
--- OUTSIDE RECORDS SUMMARY | 2023-10-30 08:46 | XMS_ITS | Encounter Summary ---
Author Name Unknown Organization [facility] Address [address] [facility]. [address] Care Team Providers Care Ldr Rn Name Role Phone Hakan Barton MD Unavailable Shar Bartlett RD Unavailable [phone] Jon Eng MD Unavailable [phone] Willam Jaramillo MD Primary Care Provider Reason for Visit * Reason Comments Medication Refill Encounter Details Date Type Department Care Team (Late st Contact Info) Description 12/23/[address] [address] Hakan Barton MD [address] [place] [id number] Medication Refill Social History Tobacco Use Types Packs/Day Years [...] encounter Miscellaneous Notes * Telephone Encounter - Katrin Amos RN - 12/26/2022 9:47 AM CDT Dup last rx:09-20-22 for 90tab w/1 RF documented in this encounter Plan of Treatment Not on file documented as of this encounter Visit Diagnoses Diagnosis Recurrent Clostridioides difficile diarrhea documented in this encounter Care Teams Ldr Rn Relationship Specialty [place] [address] [place] [address] PCP - General 07/28/22 [place] [address] [place] [address] Assigned Gastroenterology Provider 05/07/21 08/30/[address] [place] [address] Registered Dietitian Dietitian, Registered 07/20/21 Jon Eng MD [address] [place] [address] [id number] [place], [place] [address] Assigned Surgical Provider 04/14/22 documented as of this encounter
--- OUTSIDE RECORDS SUMMARY | 2023-10-30 08:46 | XMS_ITS | Encounter Summary ---
Author Name Unknown Organization [facility] Address [address] [facility] [place] [address] Care Team Providers Care Community Affairs Manager Name Role Phone Hakan Barton MD Unavailable Venus Barnes MD Primary Care Provider [phone] Unavailable [phone] Jon Eng MD Unavailable [phone] Willam Jaramillo MD Primary Care Provider Encounter Details Date Type Department Care Team (Late st Contact Info) Description 01/14/2022 [facility] [address] [place] [address] Gerald Hadley Diarrhea, unspecified type Social History Tobacco Use Types Packs/Day Years Used Date Smoking Tobacco: Former Cigarettes Smokeless Tobacco: Never Comments:quit 2012 Alcohol Use Standard Drinks/Week Comments Yes 0 (1 standard drink = 0.6 oz pur e alcohol) occas PHQ-2 Answer Date Recorded PHQ-2 Score 0 11/13/2021 Sex and Gender Information Value Date Recorded Sex Assigned at Not on file Gender Identity Not on file Sexual Orientation Not on file documented as of this encounter Plan of Treatment Not on file documented as of this encounter Procedures Procedure Name Priority Date/Time Associated Diagnosis Comments CALPROTECTIN FECES Routine 01/14/2022 11 :45 AM CDT Diarrhea, unspecified type ENTERIC BACTERIA AND VIRUS PANEL BY PCR Routine 01/14/2022 11:30 AM CDT Diarrhea, unspecified type CLOSTRIDIUM DIFFICILE TOXIN B Routine 01/14/2022 11:30 AM CDT Diarrhea, unspecified type documented in this encounter Results * Calprotectin Feces (01/14/2022 11:45 AM CDT) Calprotectin Feces 48.5 0.0 - 49.9 mg/kg 01/15/2022 12:19 PM CDT [facility]END O Comment:Normal Stool RECTAL CONTENTS / Unknown Non-blood Collection / Unknown 01/14/2022 11:45 AM CDT 01/14/2022 11:48 AM CDT Hakan Barton MD LAB - STOOLS ORDERA BLES [facility]/ENDO Specialty Core/Prot/Endo [address] [facility], [address] [phone] * Clostridium difficile toxin B (01/14/2022 11:30 AM CDT) C Difficile Toxin B by PCR Negative Negative 01/14/2022 6:15 PM CDT [facility] Comment:A negative result do es not exclude actual disease due to C. difficile and may be due to improper collection, handling and storage of the specimen or the number of organisms in the specimen is below the detection limit of the assay. Stool RECTAL CONTENTS / Unknown Non-blood Collection / Unknown 01/14/2022 11:30 AM CDT 01/14/2022 11:48 AM CDT Narrative [facility] - 01/14/2022 6:15 PM CDT [facility] Xpert C. difficile Assay, performed on the [employer] GeneXpert?? Instrument Systems, is a qualitative in vitro [...] of CDI. Hakan Barton MD LAB - MICRO GENERAL ORDERABLES [facility] Inf. Diseases Diag. Lab [address] [facility], [address] [place] [address], [facility] [phone] * Enteric Bacteria and Virus Panel by JAQUI Stool (01/14/2022 11:30 AM CDT) Campylobacter group Not Detected Not Detected 01/14/2022 11:33 PM CDT [facility] Salmonella species Not Detected Not Detected 01/14/2022 11:33 PM CDT [facility] Shigella species Not Detected Not Detected 01/14/2022 11:33 PM CDT [facility] Vibrio group Not Detected Not Detected 01/14/2022 11:33 PM CDT [facility] Rotavirus Not Detected Not Detected 01/14/2022 11:33 PM CDT [facility] Shiga toxin 1 gene Not Detected Not Detected 01/14/2022 11:33 PM CDT [facility] Shiga toxin 2 gene Not Detected Not Detected 01/14/2022 11:33 PM CDT [facility] Norovirus I and II Not Detected Not Detected 01/14/2022 11:33 PM CDT [facility] Yersinia enterocolitica Not Detected Not Detected 01/14/2022 11:33 PM CDT [facility] Stool RECTAL CONTENTS / Unknown Non-blood Collection / Unknown 01/14/2022 11:30 AM CDT 01/14/2022 11:48 AM CDT Narrative [facility] - 01/14/2022 11:33 PM CDT Testing performed by multiplexed, qualitative PCR using the Existence Before Essence Enteric Pathogens Nucleic Acid Test. Results should not be used as the sole basis for diagnosis, treatment or other patient management decisions. Positive results do not rule out co-infection with other organisms that are not detected by this test and may not be the sole or definitive cause of patient illness. Negative results in the setting of clinical illness compatible with gastroenteritis may be due to infection by pathogens that are not detected by this test or non-infectious causes such as ulcerative colitis, irritable bowel syndrome or Crohn's disease. Note: Shiga toxin producing E. coli (STEC) typically harbor one or both genes that encode for Shiga toxins 1 and 2. Hakan Barton MD LAB - MICRO GENERAL ORDERABLES [facility] Inf. Diseases Diag. Lab [address] [facility], [address] [place] [address], [facility] [phone] documented in this encounter Visit Diagnoses Diagnosis Diarrhea, unspecified type documented in this encounter Additional Health Concerns Infection Onset Date Last Indicated Resolved Time Rule Out C-difficile 01/14/2022 01/14/2022 022 6:15 PM CDT documented as of this encounter Care Teams Community Affairs Manager Relationship Specialty [place] [address] [place] [address] PCP - General 07/03/21 07/27/22 [place] [address] [place] [address] PCP - General 07/28/22 [place] [address] [place] [address] Assigned Gastroenterology Provider 05/07/21 08/30/[address] [place] [address] Registered Dietitian Dietitian, Registered 07/20/21 Jon Eng MD [address] [place] [address] [id number] [place], [place] [address] Assigned Surgical Provider 04/14/22 documented as of this encounter
--- OUTSIDE RECORDS SUMMARY | 2023-10-30 08:46 | XMS_ITS | Encounter Summary ---
Author Name Unknown Organization [facility] Address [address] [facility] [place] [address] Care Team Providers Care Hot Box Checker Name Role Phone Hakan Barton MD Unavailable Shar Bartlett RD Unavailable [phone] Jon Eng MD Unavailable [phone] Willam Jaramillo MD Primary Care Provider Reason for Visit * Reason Comments Medication Refill Encounter Details Date Type Department Care Team (Late st Contact Info) Description 12/27/[address] [address] Hakan Barton MD [address] [place] [address] Medication Refill Social History Tobacco Use [...] diarrhea documented in this encounter Care Teams Hot Box Checker Relationship Specialty Start [place] [address] [place] [address] PCP - General 07/28/22 [place] [address] [place] [address] Assigned Gastroenterology Provider 05/07/21 08/30/23 Shar Bartlett, TAYLA [address] [place] [address] Registered Dietitian Dietitian, Registered 07/20/21 Jon Eng MD [address] [place] [address] [id number] [place] [address] Assigned Surgical Provider 04/14/22 documented as of this encounter
--- OUTSIDE RECORDS SUMMARY | 2023-10-30 08:46 | XMS_ITS | Clinical Summary ---
Author Name Unknown Organization [facility] Address [address] [place] [address] Care Team Providers Care Insights Manager Name Role Phone Elsewhere, Pcp Primary Care Provider Unavailabl e Source Comments Patient records contain information from all sites at [facility]. For routine questions regarding patient records, call [phone] during business hours, M-F 8:00 AM - 5:00 PM Central Time. Record requests for emergency care only can be directed to [phone] at any time.[facility] Allergies Active Allergy Reactions Criticality Noted Date [...] from 04/12/2023:Stage IIIB(cT1b, cN3, cM0) - Unsigned Encounters Date Type Department Care Team Description 10/25/2023 Clinical Communication Department of Radiation Oncology in [place] [address] [place] [address] Hanh Marquez M.D. 09/24/2023 8:58 AM FACULTY RESEARCH ASSISTANT - 09/24/2023 9:22 AM [facility] Hospital Encounter Department of Radiation Oncology in [address] [address] Hanh Marquez M.D. 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) (Primary Dx) from Last 3 Months Immunizations Name Administration Dates Next Due HZV [...] (18 years or older ) (PF) 08/27/2019 Family History Medical History Relation Name Comments Lung cancer Aunt 1 Bone cancer Aunt 2 Melanoma Aunt 3 Breast cancer Aunt 4 Lung cancer Brother Esophageal cancer Father Stomach cancer Father Lung cancer Uncle Relation Name Status Comments Aunt 1 Aunt 2 Aunt 3 Aunt 4 Brother Father Uncle Social History Tobacco Use Types Packs/Day Years [...] Comments Blood Pressure 153/69 08/28/2023 11:29 AM FACULTY RESEARCH ASSISTANT Pulse 66 08/28/2023 11:29 AM FACULTY RESEARCH ASSISTANT Temperature 36.5 ??C (97.7 ??F) 08/28/2023 11:[address] Respiratory Rate - - Oxygen Saturation - - Inhaled Oxygen Concentration - - Weight 44.7 kg (98 lb 8.7 oz) 08/28/2023 11:29 A M FACULTY RESEARCH ASSISTANT Height 166 cm (5' 5.35) 12/09/2012 8:39 AM FACULTY RESEARCH ASSISTANT Body Mass Index - - Plan of Treatment Upcoming Encounters Date Type Department Care Team (Latest Contact Info) Description 01/07/2024 9:00 AM CDT Clinical Communication Virtual Review in [place], [place] [address] [place] [address] 01/09/2024 9:00 AM CDT Appointment Department of Radiation Oncology in [place], [place] [address] [place] [address] Hanh Marquez M.D. [address] [place] [address] Health Maintenance Due Date Last Done Comments Bone Density Scan (Osteoporosis Screen) 1950 CT Colonography 1950 Cologuard 1950 FIT 1950 Hepatitis C Screening 1950 Mammogram 09/19/2013 09/19/2012 (Perf ormed elsewhere) Colonoscopy 01/23/2023 01/23/2013, 10/14 (Performed elsewhere) Colorectal Cancer Screening 01/23/2023 Zoster Vaccines (2 of 2) 04/29/2023 03/04/2023, 05/15 Depression Screening (Annual PHQ-2) 10/14/2023 Fall Risk Screen (Annual) 10/14/2023 Creatinine Level (Kidney Function Test) 07/22/2024 07/22/2023, 05/02/2023, 02/07/2023, Additional history exists Potassium Level 07/22/2024 07/22/2023, 04/14, 04/09/2023, Additional history exists Sodium Level 07/22/2024 07/22/2023, 04/14, 02/07/2023, Additional history exists DTaP,Tdap,and Td Vaccines (2 - Td or Tdap) 06/19/2026 06/19/2016 Fasting Glucose for Diabetes Screening 07/22/2026 07/22/2023, 05/02/2023, 02/07/2023, Additional history exists Pneumococcal vaccine (65+ years) Completed 06/28/2020, 08/27/2019 Influenza Vaccine Completed 08/12/2023, , 07/26/2021, Additional history exists COVID-19 Vaccine Completed 08/28/2023, , 02/01/2022, Additional history exists HPV Vaccines Aged Out No longer eligi ble based on patient's age to complete this topic Medical Devices Implanted Type Area Telephone Answering Service Operator Device Identifier Shelf Expiration Date Model / Serial / Lot Hardware E.G. Pins/Screws/R ods Hardware e.g. pins/screws/ rods Duodenum Description:[place] Procedures Procedure Name Priority Date/Time Associated Diagnosis Comments OUTSIDE NM PET Routine 09/19/2023 4:05 PM FACULTY RESEARCH ASSISTANT from Last 3 Months Results * PET skull to mid thigh-Outside NM Pet (09/19/2023 4:05 PM FACULTY RESEARCH ASSISTANT) Narrative IIM[facility] - 09/24/2023 8:53 AM FACULTY RESEARCH ASSISTANT This order has been created and auto-finalized [...] NA from Last 3 Months Care Teams Insights Manager Relationship Specialty Start Date End Date Elsewhere, Pcp PCP - General Family Medicine 05/07/23
--- OUTSIDE RECORDS SUMMARY | 2023-10-30 08:46 | XMS_ITS | Encounter Summary ---
Author Name Unknown Organization [place] Address [address] [facility] [place] [address] Care Team Providers Care Diesel Engine Ii Pipe Fitter Name Role Phone Hakan Barton MD Unavailable [phone] Venus Barnes MD Primary Care Provider [phone] Unavailable [phone] Jon Eng MD Unavailable [phone] Willam Jaramillo MD Primary Care Provider Encounter Details Date Type Department Care Team (Late st Contact Info) Description 09/27/2021 [facility] [address] [place] [address] [place] Diarrhea, unspecified type Social History Tobacco Use [...] have Coronavirus / COVID-19? No / Unsure 09/28/2021 7:30 AM MANAGER CREATIVE documented as of this encounter Plan of Treatment Not on file documented as of this encounter Procedures Procedure Name Priority Date/Time Associated Diagnosis Comments ENTERIC BACTERIA AND VIRUS PANEL BY PCR Routine 09/27/2021 5:45 PM MANAGER CREATIVE Diarrhea, unspecified type CLOSTRIDIUM DIFFICILE TOXIN B Routine 09/27/2021 5:45 PM MANAGER CREATIVE Diarrhea, unspecified type CALPROTECTIN FECES Routine 09/27/2021 5: 45 PM MANAGER CREATIVE Diarrhea, unspecified type ROUTINE PARASITOLOGY EXAM Routine 09/27/2021 5:45 PM MANAGER CREATIVE Diarrhea, unspecified type documented in this encounter Results * Ova and Parasite Exam Routine (09/27/2021 5:45 PM MANAGER CREATIVE) OVA AND PARASITE EXAM Negative Negative JACQUE 09/29/2021 2:20 PM MANAGER CREATIVE [facility] Comment:A single negative sp ecimen does not rule out parasitic infection. Stool RECTAL CONTENTS / Unknown Non-blood Collection / Unknown 09/27/2021 5:45 PM MANAGER CREATIVE 09/28/2021 7:42 AM MANAGER CREATIVE Narrative [facility] - 09/29/2021 2:20 PM MANAGER CREATIVE Cryptosporidium, Cyclospora and Microsporidia are not readily detected by this method. Hakan Barton MD LAB - MICRO GENERAL ORDERABLES [facility] Infectious Diseases Diagnostic Lab (IDDL) [address] [place] [address], [address] [place] [address], [facility] [phone] * Enteric Bacteria and Virus Panel by JAQUI Stool (09/27/2021 5:45 PM MANAGER CREATIVE) Campylobacter group Not Detected Not Detected 09/28/2021 9:23 PM MANAGER CREATIVE [facility] Salmonella species Not Detected Not Detected 09/28/2021 9:23 PM MANAGER CREATIVE [facility] Shigella species Not Detected Not Detected 09/28/2021 9:23 PM MANAGER CREATIVE [facility] Vibrio group Not Detected Not Detected 09/28/2021 9:23 PM MANAGER CREATIVE [facility] Rotavirus Not Detected Not Detected 09/28/2021 9:23 PM MANAGER CREATIVE [facility] Shiga toxin 1 gene Not Detected Not Detected 09/28/2021 9:23 PM MANAGER CREATIVE [facility] Shiga toxin 2 gene Not Detected Not Detected 09/28/2021 9:23 PM MANAGER CREATIVE [facility] Norovirus I and II Not Detected Not Detected 09/28/2021 9:23 PM MANAGER CREATIVE [facility] Yersinia enterocolitica Not Detected Not Detected 09/28/2021 9:23 PM MANAGER CREATIVE [facility] Stool RECTAL CONTENTS / Unknown Non-blood Collection / Unknown 09/27/2021 5:45 PM MANAGER CREATIVE 09/28/2021 7:41 AM MANAGER CREATIVE Narrative [facility] - 09/28/2021 9:23 PM MANAGER CREATIVE Testing performed by multiplexed, qualitative PCR using the Docstoc Enteric Pathogens Nucleic Acid Test. Results should [...] - MICRO GENERAL ORDERABLES [facility] Infectious Diseases Diagnostic Lab (IDDL) [address] [place] [address], [address] [place] [address], [facility] [phone] * (ABNORMAL) Calprotectin Feces (09/27/2021 5:45 PM MANAGER CREATIVE) Calprotectin Feces 341.0(H) 0.0 - 49.9 mg/kg 09/29/2021 1:35 PM MANAGER CREATIVE SPECIALTY CORE/PROT/EN DO Comment: Abnormal, repeat as clinically indicated. Fecal calprotectin is an indicator of neutrophil presence in the stool. It is not specific for IBD. Elevated calprotectin may also be seen in patients with other conditions, such as microscopic colitis, diverticular disease, gastrointestinal infections, and colorectal cancer. Some medications,such as NSAIDs and proton pump inhibitors may also result in elevated calprotectin levels. Stool RECTAL CONTENTS / Unknown Non-blood Collection / Unknown 09/27/2021 5:45 PM MANAGER CREATIVE 09/28/2021 7:42 AM MANAGER CREATIVE Hakan Barton MD LAB - STOOLS ORDERA BLES Performing Organization Address City/[facility]/ZIP Co de Phone Number SPECIALTY CORE/PROT/ENDO [facility] Specialty Core Lab [address] [facility], [address] [place] [address], [place] [phone] * Clostridium difficile Toxin B PCR (09/27/2021 5:45 PM MANAGER CREATIVE) C Difficile Toxin B by PCR Negative Negative 09/28/2021 2:32 PM MANAGER CREATIVE [facility] Comment:A negative result do es not exclude actual disease due to C. difficile and may be due to improper collection, handling and storage of the specimen or the number of organisms in the specimen is below the detection limit of the assay. Stool RECTAL CONTENTS / Unknown Non-blood Collection / Unknown 09/27/2021 5:45 PM MANAGER CREATIVE 09/28/2021 7:41 AM MANAGER CREATIVE Narrative [facility] - 09/28/2021 2:32 PM MANAGER CREATIVE The CepLasso Logicid Xpert C. difficile Assay, performed on the grabHalo GeneXpert?? Instrument Systems, is a qualitative in [...] Barton MD LAB - MICRO GENERAL ORDERABLES Performing Organization Address City/[facility]/ZIP Co de Phone Number [facility] Infectious Diseases Diagnostic Lab (IDDL) [address] [facility], [address] [place] [address], [place] [phone] documented in this encounter Visit Diagnoses Diagnosis Diarrhea, unspecified type documented in this encounter Additional Health Concerns Infection Onset Date Last Indicated Resolved Time Rule Out C-difficile 09/27/2021 09/27/2021 021 2:32 PM MANAGER CREATIVE Rule Out C-difficile 01/14/2022 01/14/2022 022 6:15 PM CDT documented as of this encounter Care Teams Diesel Engine Ii Pipe Fitter Relationship Specialty [place] [address] [place] [address] PCP - General 07/03/21 07/27/22 [place] [address] [place] [address] PCP - General 07/28/22 [place] [address] [place] [address] Assigned Gastroenterology Provider 05/07/21 08/30/23 Shar Bartlett, TAYLA [address] [place] [address] Registered Dietitian Dietitian, Registered 07/20/21 Jon Eng MD [address] [place] [address] [id number] [place] [address] Assigned Surgical Provider 04/14/22 documented as of this encounter
--- OUTSIDE RECORDS SUMMARY | 2023-10-30 08:46 | XMS_ITS | Encounter Summary ---
Author Name Unknown Organization [place] Address [address] [facility] [place] [address] Care Team Providers Care Operations Plant Attendant Name Role Phone [facility], Kuldeep [place] Primary Care Provider + Hakan Barton MD Unavailable [phone] Venus Barnes MD Primary Care Provider [phone] Unavailable [phone] Jon Eng MD Unavailable [phone] Willam Jaramillo MD Primary Care Provider Encounter Details Date Type Department Care Team (Late st Contact Info) Description 06/20/2021 [facility] Only [facility] [address] [place] [address] [place] Diarrhea, unspecified type Social History [...] have Coronavirus / COVID-19? No / Unsure 06/07/2021 9:50 AM CDT documented as of this encounter Plan of Treatment Not on file documented as of this encounter Procedures Procedure Name Priority Date/Time Associated Diagnosis Comments CLOSTRIDIUM DIFFICILE TOXIN B Routine 06/20/2021 11:00 AM CDT Diarrhea, unspecified type CALPROTECTIN FECES Routine 06/20/2021 11 :00 AM CDT Diarrhea, unspecified type documented in this encounter Results * Calprotectin Feces (06/20/2021 11:00 AM CDT) Calprotectin Feces 39.4 0.0 - 49.9 mg/kg 06/21/2021 2:08 PM CDT [facility] SPECIALTY [facility] Comment:Normal Stool RECTAL CONTENTS / Unknown Non-blood Collection / Unknown 06/20/2021 11:00 AM CDT 06/20/2021 11:41 AM CDT Hakan Barton MD LAB - STOOLS [facility] SPECIALTY [facility] Specialty Core Lab [address] [facility], [address] [place] [address] [phone] * (ABNORMAL) Clostridium difficile Toxin B PCR (06/20/2021 11:00 AM CDT) Pathologist [facility] C Difficile Toxin B by PCR Positive( A) Negative 06/20/2021 3:31 PM CDT [facility] Comment:Detection of [...] CONTENTS / Unknown Non-blood Collection / Unknown 06/20/2021 11:00 AM CDT 06/20/2021 11:40 AM CDT Narrative [facility] - 06/20/2021 3:31 PM CDT The [employer] Xpert C. difficile Assay, performed on the HeatGenie?? Instrument Systems, is a qualitative in vitro [...] of CDI. Hakan Barton MD LAB - [place] GENERAL ORDERABLES [facility] Infectious Diseases Diagnostic Lab (IDDL) [address] [facility], [address] [place] [address], [facility] [phone] documented in this encounter Visit Diagnoses Diagnosis Diarrhea, unspecified type documented in this encounter Additional Health Concerns Infection Onset Date Last Indicated Resolved Time C-difficile 04/26/2021 07/18/2021 08/17/2021 11:3 9 PM CDT Rule Out C-difficile 06/20/2021 06/20/2021 021 3:31 PM CDT Rule Out C-difficile 07/18/2021 07/18/2021 021 9:41 PM CDT Rule Out C-difficile 09/27/2021 09/27/2021 021 2:32 PM PROPOSITION PLAYER Rule Out C-difficile 01/14/2022 01/14/2022 022 6:15 PM CDT documented as of this encounter Care Teams Operations Plant Attendant Relationship Specialty Start Date End Date [address] [phone] PCP - General 07/05/16 07/02/21 [place] [address] [place] [address] PCP - General 07/03/21 07/27/22 [place] [address] [place] [address] PCP - General 07/28/22 [place] [address] [place] [address] Assigned Gastroenterology Provider 05/07/21 08/30/[address] [place], [place] [id number] Registered Dietitian Dietitian, Registered 07/20/21 Jon Eng MD [address] [facility] [id number] [place] [address] Assigned Surgical Provider 04/14/22 documented as of this encounter
--- OUTSIDE RECORDS SUMMARY | 2023-10-30 08:46 | XMS_ITS ---
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 Linked Problems DehydrationMalignant Neoplas m Of Lung Adenocarcinoma Right (HCC)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)Anuria Treatment Medications No medications scheduled. Past Plans No past plan information found. Radiation Treatments * Plan Last Treated On Elapsed Days Fractions Treated Prescribed Fraction Dose Prescribed Total Dose [id number] 07/03/2023 49 30 of 30 200 cGy 6,000 cGy Reference Point Last Treated On Elapsed Days Session Dose Total Dose [id number] 07/03/2023 49 200 cGy 6,000 cGy
--- OUTSIDE RECORDS SUMMARY | 2023-10-30 08:46 | XMS_ITS | Encounter Summary ---
Author Name Unknown Organization [place] Address [address] [facility] [address] Care Team Providers Care Machine Setter Name Role Phone [facility], [facility] [place] Primary Care Provider + Hakan Barton MD Unavailable Venus Barnes MD Primary Care Provider [phone] Unavailable [phone] Jon Eng MD Unavailable [phone] Willam Jaramillo MD Primary Care Provider Encounter Details Date Type Department Care Team (Late st Contact Info) Description 04/06/2021 Transcribe Orders GENERIC EXTERNAL DATA DEPARTMENT Provider, Generic External Data Social History Tobacco Use Types Packs/Day Years Used Date Smoking Tobacco: Former Cigarettes Comments:quit 2012 Alcohol Use Standard Drinks/Week Comments [...] have Coronavirus / COVID-19? No / Unsure 04/07/2021 12:55 PM CDT documented as of this encounter Plan of Treatment Not on file documented as of this encounter Visit Diagnoses Not on filedocumented in this encounter Additional Health Concerns Infection [...] Out C-difficile 09/27/2021 09/27/2021 021 2:32 PM TORPEDO MAN Rule Out C-difficile 01/14/2022 01/14/2022 022 6:15 PM CDT documented as of this encounter Care Teams Machine Setter Relationship Specialty Start Date End Date [address] [phone] PCP - General 07/05/16 07/02/21 Venus Barnes MD [id number] [place] [address] PCP - General 07/03/21 07/27/22 [place] [address] [place] [address] PCP - General 07/28/22 [place] [address] [place] [address] Assigned Gastroenterology Provider 05/07/21 08/30/[address] [place] [address] Registered Dietitian Dietitian, Registered 07/20/21 Jon Eng MD [address] [facility] [id number] [place] [address] Assigned Surgical Provider 04/14/22 documented as of this encounter
--- OUTSIDE RECORDS SUMMARY | 2023-10-30 08:46 | XMS_ITS | Encounter Summary ---
Author Name Unknown Organization [facility] Address [address] [place] [address] Care Team Providers Care Photographic Enlarger Operator Name Role Phone Elsewhere, Pcp Primary Care Provider Unavailabl e Encounter Details Date Type Department Care Team (Late st Contact Info) Description 10/25/2023 Clinical Communication Department of Radiation Oncology in [place], [place] [address] [place] [phone] Hanh Marquez M.D. [address] [place] [phone] Social History Tobacco Use Types Packs/Day Years Used Date Smoking Tobacco: Former Cigarettes 1 Q uit: 2013 Passive Smoke Exposure: Current Smokeless Tobacco: Never Passive Exposure Comments:Hu sband Alcohol Use Standard Drinks/Week Comments Yes 0 [...] as of this encounter Plan of Treatment Upcoming Encounters Date Type Department Care Team (Latest Contact Info) Description 01/07/2024 9:00 AM CDT Clinical Communication Virtual Review in [place], [place] 200 [place] [address] 01/09/2024 9:00 AM CDT Appointment Department of Radiation Oncology in [address] [address] [place] [address] documented as of this encounter Visit Diagnoses Not on filedocumented in this encounter Care Teams Photographic Enlarger Operator Relationship Specialty Start Date End Date Elsewhere, Pcp PCP - General Family Medicine 05/07/23 documented as of this encounter
--- OUTSIDE RECORDS SUMMARY | 2023-10-30 08:46 | XMS_ITS | Encounter Summary ---
Author Name Unknown Organization [place] Address [address] [place] [address] Care Team Providers Care Early Years Teacher Name Role Phone [facility], [facility] [place] Primary Care Provider + Hakan Barton MD Unavailable [phone] Venus Barnes MD Primary Care Provider [phone] Unavailable [phone] Jon Eng MD Unavailable [phone] Willam Jaramillo MD Primary Care Provider Encounter Details Date Type Department Care Team (Late st Contact Info) Description 05/31/2021 Documentation Only INTERFACED REPORT Unknown, Provider Social History Tobacco Use Types Packs/Day Years [...] have Coronavirus / COVID-19? No / Unsure 05/31/2021 9:09 AM CDT documented as of this encounter [...] Out C-difficile 09/27/2021 09/27/2021 021 2:32 PM TELEVISION MAINTENANCE WORKER Rule Out C-difficile 01/14/2022 01/14/2022 022 6:15 PM CDT documented as of this encounter Care Teams Early Years Teacher Relationship Specialty Start Date End Date [facility] [id number] [place] [address] PCP - General 07/05/16 07/02/21 [place] [address] [place] [address] PCP - General 07/03/21 07/27/22 [place] [address] [place] [address] PCP - General 07/28/22 [place] [address] [place] [address] Assigned Gastroenterology Provider 05/07/21 08/30/[address] [place] [id number] Registered Dietitian Dietitian, Registered 07/20/21 Jon Eng MD [address] [place] [address] [id number] [place], [place] [address] Assigned Surgical Provider 04/14/22 documented as of this encounter
--- OUTSIDE RECORDS SUMMARY | 2023-10-30 08:46 | XMS_ITS | Encounter Summary ---
Author Name Unknown Organization [place] Address [address] [facility] [place] [address] Care Team Providers Care Manager Student Services Name Role Phone [facility], Kuldeep [place] Primary Care Provider + Hakan Barton MD Unavailable Venus Barnes MD Primary Care Provider Shar Bartlett RD Unavailable [phone] Jon Eng MD Unavailable [phone] Willam Jaramillo MD Primary Care Provider Encounter Details Date Type Department Care Team (Late st Contact Info) Description 05/22/2021 [facility] Only [facility] [address] [place] [address] Marleny Keller Diarrhea, unspecified type Social History Tobacco Use [...] have Coronavirus / COVID-19? No / Unsure 04/26/2021 3:58 PM CDT documented as of this encounter Plan of Treatment Not on file documented as of this encounter Procedures Procedure Name Priority Date/Time Associated Diagnosis Comments CLOSTRIDIUM DIFFICILE TOXIN B Routine 05/22/2021 2:30 PM CDT Diarrhea, unspecified type documented in this encounter Results * (ABNORMAL) Clostridium difficile Toxin B PCR (05/22/2021 2:30 PM CDT) C Difficile Toxin B by PCR Positive( A) Negative 05/22/2021 9:15 PM CDT [facility] Comment:Detection of [...] CONTENTS / Unknown Non-blood Collection / Unknown 05/22/2021 2:30 PM CDT 05/22/2021 3:29 PM CDT Narrative [facility] - 05/22/2021 9:15 PM CDT The DemystData Xpert C. difficile Assay, performed on the DemystData GeneXpert?? Instrument Systems, is a qualitative in [...] Barton MD LAB - MICRO GENERAL ORDERABLES [facility] Infectious Diseases Diagnostic Lab (IDDL) [address] [facility], [address] [place] [address], [facility] [phone] documented in this encounter Visit Diagnoses Diagnosis [...] Out C-difficile 09/27/2021 09/27/2021 021 2:32 PM PRIVATE TUTORS AND TEACHERS Rule Out C-difficile 01/14/2022 01/14/2022 022 6:15 PM CDT documented as of this encounter Care Teams Manager Student Services Relationship Specialty Start Date End Date [facility] [id number] [place] [phone] PCP - General 07/05/16 07/02/21 [place] [address] [place] [address] PCP - General 07/03/21 07/27/22 [place] [address] [place] [address] PCP - General 07/28/22 [place] [address] [place] [address] Assigned Gastroenterology Provider 05/07/21 08/30/[address] [place] [address] Registered Dietitian Dietitian, Registered 07/20/21 Jon Eng MD [address] [place] [address] [id number] [place], [place] [address] Assigned Surgical Provider 04/14/22 documented as of this encounter
--- OUTSIDE RECORDS SUMMARY | 2023-10-30 08:47 | XMS_ITS | Encounter Summary ---
Author Name Unknown Organization [facility] Address [address] [place] [address] Care Team Providers Care Long Term Name Role Phone Elsewhere, Pcp Primary Care Provider Unavailabl e Encounter Details Date Type Department Care Team (Latest Contact Info) Description 06/21/2023 2:27 PM CDT - 06/21/2023 11:59 PM CDT Hospital Encounter Department of Radiation Oncology in [place], [place] [address] [place] [phone] Hanh Marquez M.D. [address] [place] [address] Discharge Disposition: Home or Self Care Social [...] on file documented as of this encounter Medications at Time of Discharge Medication Sig Dispensed Refills Start Date End Date albuterol 2.5 mg /3 mL nebulizer solution Inhale 2.5 mg every 4 (four) hours as needed for shortness of breath or wheezing. 0 01/07/2020 amLODIPine (NORVASC) 2.5 mg tablet Take 2.5 mg by mouth daily. 0 04/08/2023 azithromycin (ZITHROMAX) 250 mg tablet TAKE 1 TABLET (250 MG) BY MOUTH EVERY DAY FOR 4 DAYS STARTING TOMORROW 04/30/23 0 04/29/2023 budesonide-formoteroL (SYMBICORT) 160-4.5 mcg/actuation inhaler Inhale 2 puffs 2 (two) times a day as needed. 0 04/23/2023 codeine-guaiFENesin (ROBITUSSIN-AC) 10-100 mg/5 mL liquid Take 10 mL by mouth Medrol Dose Pack scheduling ONLY. 0 06/03/2023 diazePAM (VALIUM) 5 mg tablet TAKE 1 TABLET BY MOUTH EVERY 6 HOURS IF NEEDED FOR ANXIETY. TAKE 30 MINUTES PRIOR TO MRI. MAY REPEAT ONCE 0 04/18/2023 HYDROcodone-acetaminophe n (NORCO) 5-325 mg per tablet TAKE 1 tablet orally every 4 hours as needed for pain. as needed for cancer related pain.* 0 05/11/2023 lidocaine 2 % mouth solution Take 5 mL by mouth 4 (four) times a day. 0 05/28/2023 lidocaine-prilocaine (EMLA) 2.5-2.5 % cream 1 application topically once as needed for pain. Apply pea sized amount over port site 60 minutes prior to use; cover with plastic wrap.* 0 05/06/2023 lisinopriL (PRINIVIL,ZESTRIL) 40 mg tablet Take 40 mg by mouth daily. 0 02/13/2023 LORazepam (ATIVAN) 0.5 mg tablet Take 1 tablet (0.5 mg total) by mouth 2 (two) times a day. 60 tablet 0 05/16/2023 losartan (COZAAR) 100 mg tablet Take 100 mg by mouth daily. 0 02/28/2023 metoprolol succinate (TOPROL-XL) 100 mg 24 hr tablet Take 100 mg by mouth daily. 0 02/18/2023 nebulizer accessories kit Nebulizer, disposable neb kit x 4, reuseable neb kit x 1, mask x 1, filters x 1. Frequency of use: daily; Medication: duoneb Length of need:lifetime 0 12/21/2019 OLANZapine (ZyPREXA) 5 mg tablet Take 5 mg by mouth at bedtime. 0 05/31/2023 ondansetron ODT (ZOFRAN-ODT) 4 mg disintegrating tablet DISSOLVE ONE OR TWO TABLETS IN MOUTH EVERY EIGHT HOURS NEEDED FOR NAUSEA OR VOMITING* 0 05/02/2023 ondansetron ODT (ZOFRAN-ODT) 4 mg disintegrating tablet Dissolve 1 tablet (4 mg total) in the mouth every 8 (eight) hours as needed for nausea or vomiting. 20 tablet 3 05/21/2023 oxyCODONE-acetaminophen (PERCOCET) 5-325 mg per tablet 0 05/11/2023 prochlorperazine (COMPAZINE) 10 mg tablet Take 10 mg by mouth every 6 (six) hours as needed. for nausea 0 04/27/2023 rosuvastatin (CRESTOR) 20 mg tablet Take 20 mg by mouth daily. 0 02/18/2023 vancomycin (FIRVANQ) 25 mg/mL solution Take 125 mg by mouth. 0 04/27/2021 vancomycin (VANCOCIN) 125 mg capsule Take 125 mg by mouth daily. 0 06/20/2021 documented as of this encounter Plan of Treatment Upcoming Encounters Date Type Department Care Team (Latest Contact Info) Description 01/07/2024 9:00 AM CDT Clinical Communication Virtual Review in [place], [place] 200 [place] [address] 01/09/2024 9:00 AM CDT Appointment Department of Radiation Oncology in [place], [place] [address] [place] [address] Hanh Marquez M.D. [address] [place] [phone] documented as of this encounter Visit Diagnoses Not on filedocumented in this encounter Care Teams Long Term Relationship Specialty Start Date End Date Elsewhere, Pcp PCP - General Family Medicine 05/07/23 documented as of this encounter
--- OUTSIDE RECORDS SUMMARY | 2023-10-30 08:47 | XMS_ITS | Encounter Summary ---
Author Name Unknown Organization [facility] Address [address] [place] [address] Care Team Providers Care Dialysis Rn Name Role Phone Elsewhere, Pcp Primary Care Provider Unavailabl e Encounter Details Date Type Department Care Team (Late st Contact Info) Description 07/03/2023 Documentation Department of Radiation Oncology in [place], [place] [address] [place] [phone] Hanh Marquez M.D. [address] [place] [address] Social History Tobacco Use Types Packs/Day Years [...] as of this encounter Miscellaneous Notes * Radiation Completion Notes - Malena Brito R.N. - 07/03/2023 11:59 PM CDT DIAGNOSIS: 1. 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 Treatment Intent: Curative Concomitant Therapy: Chemotherapy Single Plan Treatment Course: 1xLung Plan ID Fractions Dose / Fraction (cGy) Dose Treated (cGy) Dose Planned (cGy) First Treatment Last Treatment Elapsed Days [id number] 30 30 200 6000 6000 05/15/2023 07/03/2023 49 Course Summary 05/15/2023 07/03/2023 49 Radiation Modality: Photons CLINICAL SUMMARY Mrs. Racheal Regalado completed radiation treatment as planned with interruptions. Patient was hospitalized from June 24, 2023 through June 27, 2023 at [facility] due to pneumonia, atrial fibrillation with RVR, hypokalemia and neutropenia. Radiation therapy therefore was held Se pt through June 30, 2023 due to hospitalization. Radiation therapy resumed on 2022. The course of treatment was tolerated with anticipated side effects. The patient experienced toxicities of grade 3 pneumonia, grade 1 esophagitis and fatigue during radiation treatment. TREATMENT RESPONSE: Response to treatment will be determined by post-treatment imaging and/or laboratory work. RECOMMENDED FOLLOW UP: Radiation Oncologist and Medical Oncology . Follow up will be with Dr. Marquez and Dr. Cortez in [address] chest. Signed by: Malena Brito R.N., 07/12/2023 1:49 PM CDT [facility] [address] [place] [id number] documented in this encounter Plan of Treatment Upcoming Encounters Date Type Department Care Team (Latest Contact Info) Description 01/07/2024 9:00 AM CDT Clinical Communication Virtual Review in [address] [address] 01/09/2024 9:00 AM CDT Appointment Department of Radiation Oncology in [address] [phone] Hanh Marquez M.D. 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
--- OUTSIDE RECORDS SUMMARY | 2023-10-30 08:47 | XMS_ITS | Encounter Summary ---
Author Name Unknown Organization [facility] Address [address] [place] [address] Care Team Providers Care Batching Operator Name Role Phone Elsewhere, Pcp Primary Care Provider Unavailabl e Encounter Details Date Type Department Care Team (Late st Contact Info) Description 07/08/2023 Clinical Communication Department of Radiation Oncology in [address] [phone] Hanh Marquez M.D. [address] [place] [phone] Social History Tobacco Use Types Packs/Day Years [...] AM CDT Clinical Communication Virtual Review in [place], [place] [address] [place] [address] 01/09/2024 9:00 AM CDT Appointment Department of Radiation Oncology in [address] [phone] Hanh Marquez M.D. [address] [place] [address] documented as of this encounter Visit Diagnoses Not on filedocumented in this encounter Care Teams Batching Operator Relationship Specialty Start Date End Date Elsewhere, Pcp PCP - General Family Medicine 05/07/23 documented as of this encounter
--- OUTSIDE RECORDS SUMMARY | 2023-10-30 08:47 | XMS_ITS | Encounter Summary ---
Author Name Unknown Organization [facility] Address [address] [place] [address] Care Team Providers Care Filter Machine Operator Name Role Phone Elsewhere, Pcp Primary Care Provider Unavailabl e Encounter Details Date Type Department Care Team (Late st Contact Info) Description 07/02/2023 Clinical Communication Department of Radiation Oncology in [place], [place] [address] [place] [address] Malena Brito R.N. [address] [place] [address] Social History Tobacco Use Types Packs/Day Years [...] encounter Miscellaneous Notes * Telephone Encounter - Malena Brito R.N. - 07/02/2023 9:03 AM CDT ASSESSMENT Patient reports that she has had 3 bottles of water (8 oz bottles) in the last 8 hours. She is not able to urinate. The last time she urinated was yesterday afternoon. Patient denies hematuria, dysuria or pelvic pain. Patient reports temperature of 100 last night but is afebrile now. Patient took 1tablet of Oxycodone last evening for esophageal pain. Patient denies falls. She does report feelingdizzy. Patient does have Pedialyte on hand and Boost. PLAN Patient will work on rehydrating now with Pedialyte, Boost and water. After patient works on rehydrating then patient will attempt to urinate. If patient is unable to urinate 45 minutes after rehydrating, patient will call me back. Patient will call [facility] right now to set up IV fluid appointment for today. Radiation Oncology [place] can be contacted at anytime for any questions orconcerns. Disposition/Recommendation: IV fluids at [facility] and work on rehydrating today . Information/Education: patient/caller able to teach back. Caller agreeable to plan of care: yes. The following references were used: nursing clinical judgement and provider Nicole Robertson CNP . documented in this encounter Plan of Treatment Upcoming Encounters Date Type Department Care Team (Latest Contact Info) Description 01/07/2024 9:00 AM CDT Clinical Communication Virtual Review in [place], [place] [address] [place] [address] 01/09/2024 9:00 AM CDT Appointment Department of Radiation Oncology in [place], [place] [address] [place] [address] Hanh Marquez M.D. [address] [place] [phone] documented as of this encounter Visit Diagnoses Not on filedocumented in this encounter Care Teams Filter Machine Operator Relationship Specialty Start Date End Date Elsewhere, Pcp PCP - General Family Medicine 05/07/23 documented as of this encounter
--- OUTSIDE RECORDS SUMMARY | 2023-10-30 08:47 | XMS_ITS | Encounter Summary ---
Author Name Unknown Organization [facility] Address [address] [place] [address] Care Team Providers Care National Account Director Name Role Phone Elsewhere, Pcp Primary Care Provider Unavailabl e Encounter Details Date Type Department Care Team (Late st Contact Info) Description 07/08/2023 Clinical Communication Department of Radiation Oncology in [place], [place] [address] [place] [phone] Hanh Marquez M.D. [address] [place] [address] Social History Tobacco Use Types Packs/Day Years [...] encounter Miscellaneous Notes * Telephone Encounter - Nicole Robertson APRN, C.N.P., D.N.P. - 07/08/2023 12:27 PM CDT I discussed with Dr. Marquez prior to making this phone call. The patient is currently experiencing postradiation/chemotherapy side effects of painful swallowing resulting in dehydration and decrease in caloric intake. She was hospitalized on Saturday at [facility] as she was very weak and unable to eat and drink anything by herself. They have been providing fluids and she has been eating intermittently since admission on Saturday. The Hospitalist this morning spoke with the family and encouraged them to enroll the patient on hospice that she was declining rapidly. The daughter contacted both us and Dr. Cortez's office regarding this information. We both agreed that the patient is experiencing posttreatment side effects and that it will take time for her to recover from this. She is less than 1 week out from radiation treatment. I encouraged the daughter to continue working with the patient to increase her oral fluid and food intake so that she could be discharged, but then might take some time. I did reassure the daughter that she should recover from this and does not need to beenrolled on hospice currently. The daughter was reassured by this. She will continue working with her mom to improve her pain management, along with increase in oral intake. She verbalized understanding and appreciation of the phone call. * Telephone Encounter - David Frank - 07/08/2023 10:37 AM CDT Other Reason for Call Caller: Saira Relationships to patient: Daughter Reason for call: Patients daughter called requesting to speak to someone from her mothers care teamas the patient has been at [facility] since Saturday. Patients family is confused as they are hearing 2 different things from [facility] and [facility] regarding placing patient on hospice. Daughter would like some direction and clarification on what to do. documented in this encounter Plan of Treatment Upcoming Encounters Date Type Department Care Team (Latest Contact Info) Description 01/07/2024 9:00 AM CDT Clinical Communication Virtual Review in [place], [place] [address] [place] [address] 01/09/2024 9:00 AM CDT Appointment Department of Radiation Oncology in [address] [address] Hanh Marquez M.D. [address] [place] [address] documented as of this encounter Visit Diagnoses Not on filedocumented in this encounter Care Teams National Account Director Relationship Specialty Start Date End Date Elsewhere, Pcp PCP - General Family Medicine 05/07/23 documented as of this encounter
--- OUTSIDE RECORDS SUMMARY | 2023-10-30 08:47 | XMS_ITS | Encounter Summary ---
Author Name Unknown Organization [facility] Address [address] [place] [address] Care Team Providers Care Drilling Engineer Name Role Phone Elsewhere, Pcp Primary Care Provider Unavailabl e Reason for Visit * Reason Onset Date Comments Symptom Assessment 07/05/2023 Encounter Details Date Type Department Care Team (Latest Contact Info) Description 07/05/2023 Clinical Communication Department of Radiation Oncology in [place], [place] [address] [place] [phone] Hanh Marquez M.D. [address] [place] [address] Symptom Assessment Social History Tobacco Use Types Packs/Day Years [...] - Nicole Robertson APRN, C.N.P., D.N.P. - 07/05/2023 3:30 PM CDT Saira called in again to ask about taking her mom, Racheal, to the emergency room. Saira reports thather mom has been coughing up phlegm all day and unable to keep any food or liquid down. Saira also states Racheal appears quite lethargic. She was able to eat a couple bites of applesauce with pain pills this morning, but has otherwise spit everything back up. She has not drank much today. She has not urinated much today either. She is in severe pain. Saira is concerned that her potassium has dropped again as it had in the hospital last week when she was admitted for pneumonia. Racheal had a followup yesterday where her potassium returned slightly low. The provider encouraged Racheal and her family to be evaluated emergently if she was feeling lethargic again. Saira wanted confirmation that it was okay to have her mom be evaluated in the emergency room. I discussed with Saira that the most efficient care that Racheal needed at this time was going to be through the emergency room. They would beable to check her labs, provide IV fluids, and possibly provide IV pain meds to help get her pain under control. I confirmed with Saira that Racheal was in agreement to report to the emergency room in which Saira said yes. I encouraged her to contact us via the on-call number over the weekend if needed again, or in clinic next week. Saira verbalized understanding and agreement to the plan. * Telephone Encounter - David Frank - 07/05/2023 1:25 PM CDT Other Reason for Call Caller: Saira Carlos Relationships to patient: Daughter Reason for call: Patients daughter called asking if an order could be placed for the patient to receive fluids at [facility]. Daughter asked that she receive a call back and not the patient (auth on file for the daughter) Saira - [phone]. documented in this encounter Plan of Treatment Upcoming Encounters Date Type Department Care Team (Latest Contact Info) Description 01/07/2024 9:00 AM CDT Clinical Communication Virtual Review in [place], [place] [address] [place] [address] 01/09/2024 9:00 AM CDT Appointment Department of Radiation Oncology in [place], [place] [address] [place] [phone] Hanh Marquez M.D. [address] [place] [address] documented as of this encounter Visit Diagnoses Not on filedocumented in this encounter Care Teams Drilling Engineer Relationship Specialty Start Date End Date Elsewhere, Pcp PCP - General Family Medicine 05/07/23 documented as of this encounter
--- OUTSIDE RECORDS SUMMARY | 2023-10-30 08:47 | XMS_ITS | Encounter Summary ---
Author Name Unknown Organization [facility] Address [address] [place] [address] Care Team Providers Care Tier Lift Truck Operator Name Role Phone Elsewhere, Pcp Primary Care Provider Unavailabl e Encounter Details Date Type Department Care Team (Late st Contact Info) Description 06/24/2023 Clinical Communication Department of Radiation Oncology in [place], [place] [address] [place] [phone] Hanh Marquez M.D. [address] [place] [address] Social History Tobacco Use Types Packs/Day Years [...] encounter Miscellaneous Notes * Telephone Encounter - David Frank - 06/24/2023 10:48 AM CDT Patients daughter called requesting to speak with Dr. Marquez regarding her mother. Patients daughter was informed that Dr. Marquez was in with a patient and unable to speak on the phone. Patients daughter was asked if the questing could be relayed to Dr. Marquez and then she could give her a call back. Patients daughter said that she needed to explain a situation to Dr. Marquez that only she witnessed and would know about. Name and number of caller was taken down and she was told that a message would be relayed to to call her back. Saira - [phone]. Associated attestation - Hanh Marquez M.D. - 06/24/2023 5:58 PM CDT I called Saira and her sister back. Mrs. Regalado is admitted at [facility] with pneumonia and possibly afib. They say their mom is now not letting them talk with the nurses/doctors at [facility]. Igave them some advice on listening to their mom, supporting her and being there when she talks to the doctors and nurses. They will keep me posted on how she is doing and hopefully she can resume treatments later this week. Their questions were answered; my sincere support was offered. documented in this encounter Plan of Treatment Upcoming Encounters Date Type Department Care Team (Latest Contact Info) Description 01/07/2024 9:00 AM CDT Clinical Communication Virtual Review in [place], [place] [address] [place] [address] 01/09/2024 9:00 AM CDT Appointment Department of Radiation Oncology in [address] [phone] Hanh Marquez M.D. [address] [place] [phone] documented as of this encounter Visit Diagnoses Not on filedocumented in this encounter Care Teams Tier Lift Truck Operator Relationship Specialty Start Date End Date Elsewhere, Pcp PCP - General Family Medicine 05/07/23 documented as of this encounter
--- OUTSIDE RECORDS SUMMARY | 2023-10-30 08:47 | XMS_ITS | Encounter Summary ---
Author Name Unknown Organization [facility] Address [address] [place] [address] Care Team Providers Care Auto Locator Name Role Phone Elsewhere, Pcp Primary Care Provider Unavailabl e Reason for Referral * Outpatient (Routine) - Authorized Specialty Diagnoses / Procedures Referred By Contac t Referred To Contact Radiation Oncology Hanh Marquez M.D. [address] [place] [address] [facility] Region Referral ID Status Reason Start Date Expiration Date V isits Requested Visits Authorized [id number] Authorized 05/16/2023 05/15/2026 5 5 Reason for Visit * Outpatient (Routine) - Authorized Specialty Diagnoses / Procedures Referred By Vaibhav braden Referred To Contact Radiation Oncology Hanh Marquez M.D. [address] [place] [address] [facility] Region Referral ID Status Reason Start Date Expiration Date V isits Requested Visits Authorized [id number] Authorized 05/16/2023 05/15/2026 5 5 Encounter Details Date Type Department Care Team (Latest Contact Info) Description 07/02/2023 11:14 AM CDT - 07/02/2023 5:49 PM CDT Hospital Encounter Department of Radiation Oncology in [place], [place] [address] [place] [phone] Hanh Marquez M.D. [address] [place] [address] Malignant Neoplasm Of Lung Adenocarcinoma Right (HCC) (Primary Dx); 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); Anuria; Dehydration Social History Tobacco Use Types Packs/Day Years [...] on file documented as of this encounter Last Filed Vital Signs Vital Sign Reading Time Taken Comments Blood Pressure - - Pulse - - Temperature 36.3 ??C (97.4 ??F) 07/02/2023 11:00 AM C DT Respiratory Rate - - Oxygen Saturation - - Inhaled Oxygen Concentration - - Weight 43.8 kg (96 lb 9 oz) 07/02/2023 11:00 AM CDT Height - - Body Mass Index - - documented in this encounter Medications at Time [...] TO MRI. MAY REPEAT ONCE 0 04/18/2023 diphenhydramine-lidocain e-antacid (MAGIC MOUTHWASH) 1:1:1 Apply 5 mL to cheek. 0 06/24/2023 HYDROcodone-acetaminophe n (NORCO) 5-325 mg per tablet [...] 0 06/20/2021 documented as of this encounter Progress Notes * Hanh Marquez M.D. - 07/02/2023 11:30 AM CDT ATTESTATION FOR MANAGEMENT VISIT I saw and evaluated the patient and participated in the galvan portions of the service as noted below.I reviewed the documentation of Ms. Malena Brito RN and agree with the findings and plan. The patient appears well on exam. We will continue with radiation as planned and we anticipate that she willcomplete treatments this week. We anticipate that Mrs. Racheal Regalado will complete radiation treatment as planned with interruptions due to hospitalization. The course of treatment was tolerated with anticipated side effects.The patient experienced toxicities of grade 3 pneumonia, grade 1 esophagitis and fatigue during radiation treatment. Follow-up will be with me and Dr. Cortez in [address] chest[address] I will see her again on Saturday to show her last daily CBCT. Malena Brito R.N., 07/02/2023 SUBJECTIVE REASON FOR VISIT Evaluation for side effects while receiving radiation treatment for 1. Malignant Neoplasm Of Lung Adenocarcinoma Right (HCC) 2. 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 Anuria 4. Dehydration SUPERVISED BY: Hanh Marquez M.D. HISTORY OF PRESENT ILLNESS Mrs. Racheal Regalado is a 73 y.o. 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 Patient gets weekly (Saturday) chemotherapy treatments with Dr. Cortez at [facility] Patient was hospitalized from June 24, 2023 through June 27, 2023 at [facility] due to pneumonia, atrial fibrillation with RVR, hypokalemia and neutropenia. Radiation therapy thereforewas held June 22 through June 30, 2023 due to hospitalization. Radiation therapy resumed on July 01, 2023. Treatment Course: 1xLung Plan ID Fractions Dose / Fraction (cGy) Dose Treated (cGy) Dose Planned (cGy) First Treatment Last Treatment Elapsed Days [id number] / 200 5800 6000 05/15/2023 07/02/2023 48 Course Summary 05/15/2023 07/02/2023 48 Oncology History 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) 03/02/2023 Other Patient presented to emergency room in [place], [place] for elevated blood pressure at home, abdominal pain, and left arm numbness. Workup and onto reveal left lower lung nodule seen on CT abdomen. Recommend follow up with PCP. Patient known to have pulmonary nodules seen on previous CT imaging, most specifically one from December 2018 which demonstrated a 6 mm irregular pulmonary opacity along the left major fissure which hadincreased in size from previous CT imaging. This went unchanged based off CT chest in December 2019. CT of abdomen pelvis IMPRESSION: 1. No obstructive or acute inflammatory changes in the gastrointestinal and genitourinary tracts. 2. Very large colonic stool burden. 3. Indeterminate spiculated nodule in the left lower lobe which is partly imaged measuring at least1.3 cm. Neoplasm versus inflammation/infection. Recommend follow-up dedicated CT chest ideally withprior studies for comparison if any. 4. Scattered atelectasis and/or infiltrates in the right middle, left upper and left lower lobes. 5. Small complex or hyperdense left renal cyst. Additional bilateral renal lesions as described. 6. Additional findings as above. 03/19/2023 Other Follow up from ED visit where left lower lung nodule was identified. PCP recommended CT chest and further workup. 03/20/[address] chest with IV contrast Impression 1. Increased irregular appearance to nodule in superior segment of left lower lobe from December 2019,suspicious for lung neoplasm. Irregular nodule measures 14- 16 mm. Recommend correlation with PET-CTand/or tissue sampling. 2. Extensive emphysematous changes. 3. No pathologically enlarged mediastinal lymph nodes. 4. Calcified coronary artery disease. 04/02/2023 Critical Imaging FDG PET-CT Impression 1. Spiculated left lower lobe nodule with moderate uptake is suspicious for primary pulmonary malignancy. No hypermetabolic mediastinal or hilar lymphadenopathy. 2. No distant sites of tracer avid disease in the neck, solid organs of the upper abdomen or abdominopelvic lymph nodes 3. Areas of uptake within a few relatively decompressed distal small bowel loops and portions of the colon demonstrate no obvious noncontrast CT abnormality. Nonspecific, possibly reactive/inflammatory or physiologic. 4. No suspicious tracer avid osseous lesions. 5. Other nonacute findings as detailed in the body of the report 04/12/2023 Biopsy/Pathology Flexible bronchoscopy with ultrasound guided biopsy Final Diagnosis A) LUNG, LEFT LOWER LOBE NODULE, ROBOTIC BRONCHOSCOPY WITH TRANSBRONCHIAL FINE- NEEDLE ASPIRATION AND BIOPSIES WITH TOUCH IMPRINTS: 1. Positive for malignancy; adenocarcinoma consistent with pulmonary primary 2. See comment B) LYMPH NODE, LEVEL 7, ENDOBRONCHIAL ULTRASOUND-GUIDED FINE-NEEDLE ASPIRATION: 1. Positive for malignancy; metastatic adenocarcinoma consistent with pulmonary primary 2. Lymphocytes present, consistent with lymph node sampling 3. Targeted next generation sequencing pending (ordered 04/15/2023) C) LYMPH NODE, STATION 4R (LOWER PARATRACHEAL), ENDOBRONCHIAL ULTRASOUND-GUIDED FINE-NEEDLE ASPIRATION: 1. Positive for malignancy; metastatic adenocarcinoma consistent with pulmonary primary 2. Lymphocytes present, consistent with lymph node sampling D) LYMPH NODE, STATION 4L (LOWER PARATRACHEAL), ENDOBRONCHIAL ULTRASOUND-GUIDED FINE-NEEDLE ASPIRATION: 1. Positive for malignancy; metastatic adenocarcinoma consistent with pulmonary primary 2. Lymphocytes present, consistent with lymph node sampling E) LYMPH NODE, STATION 11L (INTERLOBAR), ENDOBRONCHIAL ULTRASOUND-GUIDED FINE- NEEDLE ASPIRATION: 1. Positive for malignancy; metastatic adenocarcinoma consistent with pulmonary primary 2. Lymphocytes present, consistent with lymph node sampling 3. Ancillary testing: a. PD-L1: - Tumor Proportion Score (TPS): 0% (No PD-L1 expression, TPS less than 1%) - Tumor Cell (TC): 0% (Negative, TC less than 1%) b. NGS (lung panel): - Positive for KRAS Q61L mutation; see attached report 04/12/[address] Chest with IV contrast Impression: 1. CT obtained according to the ION navigational protocol. 2. Spiculated mass within the left lower lobe, superior segment, with an interval increase, now measuring 2.5 cm, and opacities extending to the pleural surface, when compared with 03/20/2023. 3. No thoracic lymphadenopathy by size criteria. 04/18/[address] Tobin Ardon, thoracic surgery at [facility]. Recommend referral to Medical Oncology. Did not feel patient was a surgical candidate given the higher stage. 04/19/2023 Critical Imaging MRI brain demonstrated no evidence of intracranial metastases 04/26/[address] Zahira Cortez, [facility]. Recommended concurrent chemoradiation with weekly Carbo/Taxol. 05/08/2023 Other Video visit with Medical Oncology at [facility] in [place]. Agreed with the diagnosis and staging of [id number] lung cancer as first described by Dr. Cortez. Agreed with the recommendations of concurrent chemoradiation followed by maintenance durvalumab for 1 year. Patient will proceed with local treatment. 05/20/2023 - Radiation Therapy Radiation Therapy Treatment Details (Noted on 05/07/2023) Site: Left Lung Technique: IMRT Goal: Curative Planned Treatment Start Date: 05/20/2023 Patient reports that she has been working on hydration today but unable to urinate. Patient denies fevers or shaking chills today. She feels dizzy and fatigued. OBJECTIVE Temp 36.3 ??C Wt 43.8 kg PHYSICAL EXAM General: Alert and oriented in no apparent distress. ASSESSMENT / PLAN #1 Stage IIIB (cT1b, cN3, cM0) adenocarcinoma of the left lung #2 Radiotherapy to mediastinum and tumor left lower lobe with concurrent chemotherapy initiated on May 15, 2023; anticipated date of completion July 03, 2023. #3 June 24, 2023 through June 27, 2023 hospitalization at [facility] due to pneumonia and A.fib We have ordered creatinine check stat at [facility] and then ordered 1 L of .9 IV fluids today at [facility]. She will continue with radiation as planned. Dr. Marquez will see patient in follow up visit in 1 month. She can contact our care team with any questions or concerns. Addendum: Cr today, July 02, 2023 was 0.8. I have called patient to review normal result this afternoon. Patient was able to receive IV fluids today. Patient was able to urinate large amount after fluids. Urine was concentrated. Patient will continue rehydrating with oral fluids. If she becomes dizzy/dehydrated then she is to contact [facility] to set up IV fluids as needed locally. Signed by: Malena Brito R.N. 07/02/2023 3:04 PM CDT documented in this encounter Plan of Treatment Upcoming Encounters Date Type Department Care Team (Latest Contact Info) Description 01/07/2024 9:00 AM CDT Clinical Communication Virtual Review in [place], [place] [address] [place] [address] 01/09/2024 9:00 AM CDT Appointment Department of Radiation Oncology in [address] [phone] Hanh Marquez M.D. [address] [place] [phone] Scheduled Referrals Name Type Priority Associated Diagnoses Order Schedule Radiation Oncology nurse visit (clinic) Outpatient Referral Routine Once for 1 Occurrences starting 07/02/2023 until 07/02/2023 documented as of this encounter Visit Diagnoses Diagnosis Malignant Neoplasm Of Lung Adenocarcinoma Right (HCC)- Primary 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) Anuria Dehydration documented in this encounter Care Teams Auto Locator Relationship Specialty Start Date End Date Elsewhere, Pcp PCP - General Family Medicine 05/07/23 documented as of this encounter
--- OUTSIDE RECORDS SUMMARY | 2023-10-30 08:47 | XMS_ITS | Encounter Summary ---
Author Name Unknown Organization [facility] Address [address] [place] [address] Care Team Providers Care Lipstick Molder Name Role Phone Elsewhere, Pcp Primary Care Provider Unavailabl e Encounter Details Date Type Department Care Team (Latest Contact Info) Description 07/01/2023 12:13 PM CDT - 07/01/2023 11:59 PM CDT Hospital Encounter Department of Radiation Oncology in [place], [place] [address] [place] [phone] Hanh Marquez M.D. [address] [place] [address] Discharge Disposition: Home or Self Care Social [...] AM CDT Clinical Communication Virtual Review in [place], [place] [address] [place] [address] 01/09/2024 9:00 AM CDT Appointment Department of Radiation Oncology in [place] [phone] [place] [address] Hanh Marquez M.D. [address] [place] [phone] documented as of this encounter Visit Diagnoses Not on filedocumented in this encounter Care Teams Lipstick Molder Relationship Specialty Start Date End Date Elsewhere, Pcp PCP - General Family Medicine 05/07/23 documented as of this encounter
--- OUTSIDE RECORDS SUMMARY | 2023-10-30 08:47 | XMS_ITS | Encounter Summary ---
Author Name Unknown Organization [facility] Address [address] [place] [address] Care Team Providers Care Batting Machine Operator Name Role Phone Elsewhere, Pcp Primary Care Provider Unavailabl e Reason for Referral * Radiation Therapy (Routine) - Authorized Specialty Diagnoses / Procedures Referred By Nicoleac t Referred To Contact Diagnoses Malignant Neoplasm Of Lung Adenocarcinoma Right (HCC) Procedures Management Visit Hanh Marquez M.D. [address] [place] [address] [facility] Region Referral ID Status Reason Start Date Expiration Date V isits Requested Visits Authorized [id number] Authorized 05/15/2023 05/14/2024 10 10 Reason for Visit * Radiation Therapy (Routine) - Authorized Specialty Diagnoses / Procedures Referred By Vaibhav braden Referred To Contact Diagnoses Malignant Neoplasm Of Lung Adenocarcinoma Right (HCC) Procedures Management Visit Hanh Marquez M.D. [address] [place] [address] [facility] Region Referral ID Status Reason Start Date Expiration Date V isits Requested Visits Authorized [id number] Authorized 05/15/2023 05/14/2024 10 10 Encounter Details Date Type Department Care Team (Latest Contact Info) Description 07/03/2023 10:54 AM CDT - 07/03/2023 11:08 AM CDT Hospital Encounter Department of Radiation Oncology in [address] [phone] Hanh Marquez M.D. [address] [place] [address] Malignant Neoplasm Of Lung Adenocarcinoma Right (HCC) Social History Tobacco Use Types Packs/Day Years [...] Progress Notes * Hanh Marquez M.D. - 07/03/2023 11:00 AM CDT Diagnosis: Left lung cancer Radiation Treatment Progress Summary Treatment Course: 1xLung Plan ID Fractions Dose / Fraction (cGy) Dose Treated (cGy) Dose Planned (cGy) First Treatment Last Treatment Elapsed Days [id number] 200 6000 6000 05/15/2023 07/03/2023 49 Course Summary 05/15/2023 07/03/2023 49 SUBJECTIVE Mrs. Racheal Regalado a 73 y.o. reports that she feels still very tired, but she has continue to urinate now. She has pain that she is rating a 7.5 on a 0-10 scale, but her pain medications are helping. She is eating now. OBJECTIVE There were no vitals taken for this visit. PHYSICAL EXAM General appearance: alert, appears stated age, cooperative, and no distress ASSESSMENT / PLAN #1 Stage IIIB (cT1b, cN3, cM0) adenocarcinoma of the left lung #2 Radiotherapy to mediastinum and tumor left lower lobe with concurrent chemotherapy initiated on May 15, 2023; anticipated date of completion July 03, 2023. #3 June 24, 2023 through June 27, 2023 hospitalization at [facility] due to pneumonia and A.fib The patient is tolerating radiotherapy well. She will complete her treatments today. I congratulated her on this. They wanted to see me today so that they could see her last CBCT. I showed them the image from yesterday that shows the tumor has greatly decreased in size. I will see her back in 1 month (or after her CT chest). They know to contact me if she has difficulties. Signed by: Hanh Marquez M.D. 07/03/2023 3:49 PM CDT documented in this encounter Plan of Treatment Upcoming Encounters Date Type Department Care Team (Latest Contact Info) Description 01/07/2024 9:00 AM CDT Clinical Communication Virtual Review in [place], [place] [address] [place] [address] 01/09/2024 9:00 AM CDT Appointment Department of Radiation Oncology in [place], [place] [address] [place] [address] Hanh Marquez M.D. [address] [place] [phone] Scheduled Orders Name Type Priority Associated Diagnoses Orde r Schedule Management Visit Radiation Oncology Routine Malignant Neoplasm Of Lung Adenocarcinoma Right (HCC) Once for 1 Occurrences starting 07/03/2023 until 07/03/2023 documented as of this encounter Visit Diagnoses Diagnosis Malignant Neoplasm Of Lung Adenocarcinoma Right (HCC) documented in this encounter Care Teams Batting Machine Operator Relationship Specialty Start Date End Date Elsewhere, Pcp PCP - General Family Medicine 05/07/23 documented as of this encounter
--- OUTSIDE RECORDS SUMMARY | 2023-10-30 08:47 | XMS_ITS | Encounter Summary ---
Author Name Unknown Organization [facility] Address [address] [place] [address] Care Team Providers Care Sales Director Name Role Phone Elsewhere, Pcp Primary Care Provider Unavailabl e Reason for Referral * Outpatient (Routine) - Authorized Specialty Diagnoses / Procedures Referred By Contac t Referred To Contact Radiation Oncology Hanh Marquez M.D. [address] [place] [phone] [facility] Referral ID Status Reason Start Date Expiration Date V isits Requested Visits Authorized [id number] Authorized 09/24/2023 09/23/2026 1 1 Scheduling Instructions Please schedule after CT chest at [facility]; please obtain the images prior to my phone visit (Can you write that in the notes?) Thanks! OUND CALL CENTER REPRESENTATIVE * Outpatient (Routine) - Closed Specialty Diagnoses / Procedures Referred By Contac t Referred To Contact Radiation Oncology Staci Starks P.A.-C., M.S. [address] [place] [phone] Hanh Marquez M.D. [address] [place] [phone] Referral ID Status Reason Start Date Expiration Date Visits Re quested Visits Authorized [id number] Closed 08/28/2023 08/27/2026 1 1 Scheduling Instructions PET-CT and Med Onc (Dr. Cortez) appointments prior. Please get note, images, and report prior to visit. OUND CALL CENTER REPRESENTATIVE Reason for Visit * Outpatient (Routine) - Closed Specialty Diagnoses / Procedures Referred By Contac t Referred To Contact Radiation Oncology Staci Starks P.A.-C., M.SMarlena [address] [place] [phone] Hanh Marquez M.D. [address] [place] [phone] Referral ID Status Reason Start Date Expiration Date Visits Re quested Visits Authorized [id number] Closed 08/28/2023 08/27/2026 1 1 Encounter Details Date Type Department Care Team (Latest Contact Info) Description 09/24/2023 8:58 AM OUTBOUND CALL CENTER REPRESENTATIVE - 09/24/2023 9:22 AM [facility] Hospital Encounter Department of Radiation Oncology in [place], [place] [address] [place] [address] Hanh Marquez M.D. [address] [place] [phone] 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) (Primary Dx) Social History Tobacco Use Types [...] Progress Notes * Hanh Marquez M.D. - 09/24/2023 9:00 AM CST RADIATION ONCOLOGY PHONE FOLLOW-UP NOTE SUBJECTIVE REQUESTING PROVIDER Established patient DIAGNOSIS 1. Left lower lung adenocarcinoma Consult conducted via real-time audio/video technology by Hanh Marquez M.D. in [facility] to the patient in Patient's Home CHIEF COMPLAINT/REASON FOR VISIT Mrs. 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 She completed chemoradiotherapy on July 03, 2023. She returns to see me for a phone visit after her PET/CT on 09/19/2023. Oncology History 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) 03/02/2023 Other Patient presented to emergency room in [place], [place] for elevated blood pressure at home, [...] by Dr. Tobin Ardon, thoracic surgery at [facility]. Recommend referral to Medical Oncology. Did not feel patient was a surgical candidate given the higher stage. 04/19/2023 Critical Imaging MRI brain demonstrated no evidence of intracranial metastases. 04/26/[address] Zahira Cortez, [place] [facility]. Recommended concurrent chemoradiation with weekly Carbo/Taxol. 05/08/2023 Other Video visit with Medical Oncology at [facility] in [place]. Agreed with the diagnosis and staging of daz-zgejv-hlak lung cancer as first described by Dr. Cortez. Agreed with the recommendations of concurrent chemoradiation followed by maintenance durvalumab for 1 year. Patient will proceed with local treatment. 05/15/2023 - 07/03/2023 Radiation Therapy Concurrent chemoradiotherapy to the tumor in the left lower lobe of the lung and the mediastinum toa dose of 6000 cGy in 30 fractions. Radiation therapy was held June 22 through June 30, 2023 due to hospitalization for pneumonia, atrial fibrillation with RVR, hypokalemia, and neutropenia. Radiation Therapy Treatment Details (05/15/2023 - 07/03/2023) Site: Left Lung Technique: IMRT Goal: Curative Planned Treatment Start Date: 05/15/2023 06/23/[address] angio chest PE protocol demonstrated a 1.9 cm left lower lobe nodule with interval development of cavitation, but overall relatively unchanged in size. Interval development of right greater than left basilar consolidations and right middle lobe consolidation suggestive of multifocal pneumonia. Pulmonary emphysema. 07/25/[address] chest with IV contrast demonstrated the cavitary nodule in the left lower lobe, unchanged, measuring 1.9 x 1.4 cm. Persistent multifocal pneumonia involving the right middle lobe and right lower lobe. No residual right-sided pleural effusion. Patchy opacities in the medial margin of the left lower lobe, unchanged. Likely new patchy opacities in the left lingula. Findings consistent with likelymultifocal pneumonia. No pathologically enlarged mediastinal or hilar lymph nodes. 09/19/2023 Critical Imaging PET/CT at [facility] demonstrated majority of pulmonary consolidations have resolved, in keeping with prior pneumonia. The primary lung lesion in the left lower lung shows cavitation and posttreatment fibrosis. No worrisome solid or hypermetabolic component. No new or enlarging pulmonary metastases or yony or distant disease. INTERVAL HISTORY: Since I last saw Mrs. Racheal Regalado she reports that she is doing well and continues to improve She notes that she still does have phlegm and an occasional cough. But she denies fevers, chills, hemoptysis, changes in her breathing. She is using her inhaler. She denies back/bone pain, headaches, nausea or vomiting. She states that she changed her appointment to a phone visit as she had her Durvalumab yesterday and this can make her feel slightly nauseated for a day or so. . OBJECTIVE There were no vitals taken for this phone visit. General: Mrs. Racheal Regalado sounded well on the phone with no conversational dyspnea. DIAGNOSTICS: I have reviewed the available imaging, operative and pathology reports as described above and reviewed in the EMR. 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 fib I reviewed her PET/CT that shows an excellent response and no evidence of distant or yony disease.I would recommend continuing with her Durva and regular CT chests in 3 months. She would like to continue to do phone visits with me. I will set this up. Mrs. Racheal Regalado knows to contact us at any point should any questions or concerns arise. EDUCATION Ready to learn, no apparent learning barriers were identified; learning preferences include listening. Explained diagnosis and treatment plan; patient expressed understanding of the content. I personally spent 15 minutes in care of the patient today. Time includes both non face to face andface to face patient care. This is a no charge visit as we are within 90 days of radiation therapy. Signed by: Hanh Marquez M.D. 09/24/2023 9:19 AM OUTBOUND CALL CENTER REPRESENTATIVE Radiation Oncology [facility] [address] [place] [phone] OUND CALL CENTER REPRESENTATIVE documented in this encounter Plan of Treatment Upcoming Encounters Date Type Department Care Team (Latest Contact Info) Description 01/07/2024 9:00 AM CDT Clinical Communication Virtual Review in [address] [address] 01/09/2024 9:00 AM CDT Appointment Department of Radiation Oncology in [address] [phone] Hanh Marquez M.D. [address] [place] [phone] Scheduled Referrals Name Type Priority Associated Diagnoses Order Schedule Radiation Oncology office visit (clinic) Outpatient Referral Routine Once for 1 Occurrences starting 09/24/2023 until 09/24/2023 Radiation Oncology office visit (clinic) Outpatient Referral Routine Expected: (Approximate), Expires: 09/24/2024 documented as of this encounter Visit Diagnoses Diagnosis 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)- Primary documented in this encounter Care Teams Sales Director Relationship Specialty Start Date End Date Elsewhere, Pcp PCP - General Family Medicine 05/07/23 documented as of this encounter
--- OUTSIDE RECORDS SUMMARY | 2023-10-30 08:47 | XMS_ITS | Encounter Summary ---
Author Name Unknown Organization [facility] Address [address] [place] [id number] Care Team Providers Care Calibration Tester Name Role Phone Elsewhere, Pcp Primary Care Provider Unavailabl e Reason for Referral * Outpatient (Routine) - Closed Specialty Diagnoses / Procedures Referred By Contac t Referred To Contact Radiation Oncology Staci Starks P.A.-C., M.SMarlena [address] [place] [phone] Hanh Marquez M.D. [address] [place] [phone] Referral ID Status Reason Start Date Expiration Date Visits Re quested Visits Authorized [id number] Closed 08/28/2023 08/27/2026 1 1 Scheduling Instructions PET-CT and Med Onc (Dr. Cortez) appointments prior. Please get note, images, and report prior to visit. CLE ASSEMBLY INSPECTOR * Outpatient (Routine) - Closed Specialty Diagnoses / Procedures Referred By Contac t Referred To Contact Radiation Oncology Hanh Marquez M.D. [address] [place] [phone] [facility] Referral ID Status Reason Start Date Expiration Date Visits Re quested Visits Authorized [id number] Closed 07/01/2023 06/30/2026 1 1 Scheduling Instructions YIG in 1 month CLE ASSEMBLY INSPECTOR Reason for Visit * Outpatient (Routine) - Closed Specialty Diagnoses / Procedures Referred By Vaibhav braden Referred To Contact Radiation Oncology Hanh Marquez M.D. [address] [place] [phone] [facility] Region Referral ID Status Reason Start Date Expiration Date Visits Re quested Visits Authorized [id number] Closed 07/01/2023 06/30/2026 1 1 Encounter Details Date Type Department Care Team (Latest Contact Info) Description 08/28/2023 11:25 AM VEHICLE ASSEMBLY INSPECTOR - 08/28/2023 4:11 PM VEHICLE ASSEMBLY INSPECTOR Hospital Encounter Department of Radiation Oncology in [place], [place] [address] [place] [phone] Hanh Marquez M.D. [address] [place] [phone] Malignant Neoplasm Of Lung Lower Lobe Or [...] Comments Blood Pressure 153/69 08/28/2023 11:29 AM VEHICLE ASSEMBLY INSPECTOR Pulse 66 08/28/2023 11:29 AM VEHICLE ASSEMBLY INSPECTOR Temperature 36.5 ??C (97.7 ??F) 08/28/2023 11:[address] Respiratory Rate - - Oxygen Saturation - - Inhaled Oxygen Concentration - - Weight 44.7 kg (98 lb 8.7 oz) 08/28/2023 11:29 A M VEHICLE ASSEMBLY INSPECTOR Height - - Body Mass Index - [...] as of this encounter Progress Notes * Staci Starks P.A.-C., M.S. - 08/28/2023 11:30 AM CST SUBJECTIVE DIAGNOSIS 1. 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 HISTORY OF PRESENT ILLNESS Mrs. 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 She completed chemoradiotherapy on July 03, 2023. Her oncologic history is as follows: Oncology History 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) 03/02/2023 Other Patient presented to emergency room in [place], [place] for elevated blood pressure at home, [...] by Dr. Tobin Ardon, thoracic surgery at [facility]. Recommend referral to Medical Oncology. Did not feel patient was a surgical candidate given the higher stage. 04/19/2023 Critical Imaging MRI brain demonstrated no evidence of intracranial metastases. 04/26/[address] Zahira Cortez, [place] [facility]. Recommended concurrent chemoradiation with weekly Carbo/Taxol. 05/08/2023 Other Video visit with Medical Oncology at [facility]. Agreed with the diagnosis and staging of ghp-osffk-hftl lung cancer as first described by Dr. [...] pathologically enlarged mediastinal or hilar lymph nodes. *Images were not available to review as of the visit on 08/28/23. INTERVAL HISTORY The patient was seen and examined today with Dr. Marquez. The patient reports now being diagnosed with pneumonia three times and hospitalized twice. She states that she started immunotherapy and received her second cycle on Saturday. She reports noticing someweakness following the first cycle. After the second cycle she reports all over muscle aches as well as increased shortness of breath. She reports that the shortness of breath is still persistent, but has now stabilized. She has shortness of breath at rest and with activity. She reports that her oxygen saturation is lowest in the morning and was 84 this morning. The oxygen saturation does improvewith use of a rescue inhaler, increasing to 88-89. She does not use supplemental oxygen. She also re ports a cough since receiving immunotherapy. She reports mild production of phlegm. She denies hemoptysis. She reports stable chest tightness, all the way across the anterior chest. She denies fever.She reports good nutritional intake and denies pain or difficulty with swallowing. REVIEW OF SYSTEMS Review of systems was negative except as documented above. OBJECTIVE BP 153/69 (BP Location: Right arm, Patient Position: Sitting, Cuff Size: Regular) Pulse 66 Temp36.5 ??C (Temporal) Wt 44.7 kg PHYSICAL EXAM General: Patient is alert and oriented in no apparent distress. The patient is here today with her . Heart: Regular rate and rhythm. Lungs: Clear to auscultation bilaterally. 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 fib The patient is continuing to recover overall following chemoradiotherapy and recent episodes of pneumonia. She reports initiating immunotherapy. She reports increased shortness of breath and cough since receiving immunotherapy. She has been monitoring her oxygen saturation levels at home and reports improvement with use of her rescue inhaler. She was recommended to contact her Medical Oncology team to notify them of her symptoms with immunotherapy and she was agreeable to this. She reports thatshe is scheduled for a PET-CT scan on September 19 and follow-up with Medical Oncology on September 23. Dr. Marquez also met with the patient today, please see her attestation for details. After their discussion it was agreed to order for a return visit to be scheduled here after her upcoming PET-CT scan. The patient will contact us with questions or concerns. She verbally expressed her understandingof the plan. EDUCATION Ready to learn, no apparent learning barriers were identified; learning preferences include listening. Explained diagnosis and treatment plan; patient expressed understanding of the content. I personally spent 26 minutes in care of the patient today. Time includes both non face to face andface to face patient care. Signed by: Staci Starks P.A.-C., M.S. 08/28/2023 12:29 PM [facility] [address] [place] [address] CLE ASSEMBLY INSPECTOR Associated attestation - Hanh Marquez M.D. - 08/28/2023 4:11 PM VEHICLE ASSEMBLY INSPECTOR I saw and evaluated the patient and participated in the galvan portions of the service. I reviewed thedocumentation of Ms. Staci Starks PA-C, [place] and agree with the findings and plan. The CT from 07/25/2023 was later available after the patient left and I was able to review the images. By my review, thesolid component of the left lower lung mass is significantly smaller than at initial diagnosis (andeven smaller than the 06/23/23 scan). Her pneumonias are evident on the scans. I called the patient and shared this news with her. We will see her back in early September after her PET/CT. Hanh Marquez M.D., 08/28/2023 documented in this encounter Plan of Treatment Upcoming Encounters Date Type Department Care Team (Latest Contact Info) Description 01/07/2024 9:00 AM CDT Clinical Communication Virtual Review in [address] [address] 01/09/2024 9:00 AM CDT Appointment Department of Radiation Oncology in [address] [phone] Hanh Marquez M.D. [address] [place] [phone] Scheduled Referrals Name Type Priority Associated Diagnoses Order Schedule Radiation Oncology office visit (clinic) Outpatient Referral Routine Once for 1 Occurrences starting 08/28/2023 until 08/28/2023 Radiation Oncology office visit (clinic) Outpatient Referral Routine Expected: 09/24/2023, Expires: 11/28/2024 documented as of this encounter Visit Diagnoses Diagnosis 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)- Primary documented in this encounter Care Teams Calibration Tester Relationship Specialty Start Date End Date Elsewhere, Pcp PCP - General Family Medicine 05/07/23 documented as of this encounter
--- OUTSIDE RECORDS SUMMARY | 2023-10-30 08:47 | XMS_ITS | Encounter Summary ---
Author Name Unknown Organization [facility] Address [address] [place] [address] Care Team Providers Care Pinion Sorter Name Role Phone Elsewhere, Pcp Primary Care Provider Unavailabl e Reason for Referral * Outpatient (Routine) - Closed Specialty Diagnoses / Procedures Referred By Vaibhav barden Referred To Contact Radiation Oncology Hanh Marquez M.D. [address] [place] [address] [facility] Region Referral ID Status Reason Start Date Expiration Date Visits Re quested Visits Authorized [id number] Closed 07/01/2023 06/30/2026 1 1 Scheduling Instructions YIG in 1 month * Radiation Therapy (Routine) - Authorized Specialty Diagnoses / Procedures Referred By Vaibhav braden Referred To Contact Diagnoses Malignant Neoplasm Of Lung Adenocarcinoma Right (HCC) Procedures Management Visit Hanh Marquez M.D. [address] [place] [address] [facility] Region Referral ID Status Reason Start Date Expiration Date V isits Requested Visits Authorized [id number] Authorized 05/15/2023 05/14/2024 10 10 Reason for Visit * Radiation Therapy (Routine) - Authorized Specialty Diagnoses / Procedures Referred By Contac t Referred To Contact Diagnoses Malignant Neoplasm Of Lung Adenocarcinoma Right (HCC) Procedures Management Visit Hanh Marquez M.D. [address] [place] [address] [facility] Region Referral ID Status Reason Start Date Expiration Date V isits Requested Visits Authorized [id number] Authorized 05/15/2023 05/14/2024 10 10 Encounter Details Date Type Department Care Team (Latest Contact Info) Description 07/01/2023 11:09 AM CDT - 07/01/2023 12:12 PM CDT Hospital Encounter Department of Radiation Oncology in [place], [place] [address] [place] [phone] Hanh Marquez M.D. [address] [place] [address] Malignant Neoplasm Of Lung Adenocarcinoma Right (HCC) [...] Sign Reading Time Taken Comments Blood Pressure 133/56 07/01/2023 11:16 AM CDT Pulse 96 07/01/2023 11:16 AM CDT Temperature 36.2 ??C (97.1 ??F) 07/01/2023 11:16 AM C DT Respiratory Rate - - Oxygen Saturation - - Inhaled Oxygen Concentration - - Weight 44.3 kg (97 lb 10.6 oz) 07/01/2023 11:16 AM CDT Height - - Body Mass [...] Progress Notes * Hanh Marquez M.D. - 07/01/2023 11:15 AM CDT ATTESTATION FOR MANAGEMENT VISIT I [...] her again on Saturday to show her her last daily CBCT. Hanh Marquez M.D., 07/01/2023 SUBJECTIVE REASON FOR VISIT Evaluation for side effects while receiving radiation treatment for 1. Malignant Neoplasm Of Lung Adenocarcinoma Right (HCC) SUPERVISED BY: Hanh Marquez M.D. HISTORY OF PRESENT ILLNESS Mrs. Racheal Regalado is a 73 y.o. 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 Patient gets weekly (Saturday) chemotherapy treatments with Dr. Cortez at [facility]. Patient was hospitalized from June 24, 2023 through June 27, 2023 at [facility] due to pneumonia, atrial fibrillation with RVR, hypokalemia and neutropenia. Radiation therapy thereforewas held June 22 through June 30, 2023 due to hospitalization. Radiation therapy resumed on July 01, 2023. Treatment Course: 1xLung Plan ID Fractions Dose / Fraction (cGy) Dose Treated (cGy) Dose Planned (cGy) First Treatment Last Treatment Elapsed Days [id number] / 200 5600 6000 05/15/2023 07/01/2023 47 Course Summary 05/15/2023 07/01/2023 47 Oncology History 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) 03/02/2023 Other Patient presented to emergency room in [place], [place] for elevated blood pressure at home, [...] by Dr. Tobin Ardon, thoracic surgery at [facility]. Recommend referral to Medical Oncology. Did not feel patient was a surgical candidate given the higher stage. 04/19/2023 Critical Imaging MRI brain demonstrated no evidence of intracranial metastases 04/26/[address] Zahira Cortez, [facility]. Recommended concurrent chemoradiation with weekly Carbo/Taxol. 05/08/2023 Other Video visit with Medical Oncology at [place] in [place]. Agreed with the diagnosis and staging of [id number] lung cancer as first described by Dr. Cortez. Agreed with the recommendations of concurrent chemoradiation followed by maintenance durvalumab for 1 year. Patient will proceed with local treatment. 05/20/2023 - Radiation Therapy Radiation Therapy Treatment Details (Noted on 05/07/2023) Site: Left Lung Technique: IMRT Goal: Curative Planned Treatment Start Date: 05/20/2023 The patient was seen and examined today with Dr. Marquez. Patient reports that she has been doing well overall since being discharged from hospital this past. She completed her course of antibiotics this past Saturday. Patient denies fevers, chillsor hemoptysis. Shortness of breath is overall better compared to when she was initially hospitalized. Phlegm is being well managed with at home nebulizers and inhaler as needed. Patient is taking in a soft-moist diet due to mild dysphagia/esophagitis. Patient does note a sensitive gag reflux. Patient does supplement with nutritional drinks. PATIENT REPORTED SYMPTOM SCREEN FATIGUE (Scale: 0 = no fatigue; 10 = worst fatigue you can imagine): 3 PAIN (Scale: 0 = no pain; 10 = worst pain you can imagine): 6-7 OVERALL QUALITY OF LIFE (Scale: 0 = as bad as can be; 10 = as good as can be): 9 OBJECTIVE BP 133/56 (BP Location: Left arm, Patient Position: Sitting, Cuff Size: Regular) Pulse 96 Temp 36.2 ??C (Temporal) Wt 44.3 kg PHYSICAL EXAM General: Alert and oriented in no apparent distress. 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 #3 June 24, 2023 through June 27, 2023 hospitalization at [facility] due to pneumonia and A.fib We are encouraged patient is feeling better post hospitalization. Patient's weight has only decreased by 2 kg since starting radiation. I provided patient smoothie recipe recommendations, Blended Nutrition guide and information on Benecalorie packets. Patient notes she has completed her course of oral antibiotics. She will continue with radiation as planned. Dr. Marquez will see patient in follow up visit in 1 month. She can contact our care team with any questions or concerns. Toxicities reviewed with Dr. Marquez today. Signed by: Malena Brito R.N. 07/01/2023 1:38 PM CDT documented in this encounter Plan of Treatment Upcoming Encounters Date Type Department Care Team (Latest Contact Info) Description 01/07/2024 9:00 AM CDT Clinical Communication Virtual Review in [place], [place] [address] [place] [address] 01/09/2024 9:00 AM CDT Appointment Department of Radiation Oncology in [place], [place] [address] [place] [address] Hanh Marquez M.D. [address] [place] [address] Scheduled Orders Name Type Priority Associated Diagnoses Orde r Schedule Management Visit Radiation Oncology Routine Malignant Neoplasm Of Lung Adenocarcinoma Right (HCC) Once for 1 Occurrences starting 07/01/2023 until 07/01/2023 Scheduled Referrals Name Type Priority Associated Diagnoses Orde r Schedule Radiation Oncology office visit (clinic) Outpatient Referral Routine Expected: 07/31/2023 (Approximate), Expires: 07/01/2024 documented as of this encounter Visit Diagnoses Diagnosis Malignant Neoplasm Of Lung Adenocarcinoma Right (HCC) documented in this encounter Care Teams Pinion Sorter Relationship Specialty Start Date End Date Elsewhere, Pcp PCP - General Family Medicine 05/07/23 documented as of this encounter
--- OUTSIDE RECORDS SUMMARY | 2023-10-30 08:47 | XMS_ITS | Encounter Summary ---
Author Name Unknown Organization [facility] Address [address] [place] [address] Care Team Providers Care Chart Reader Name Role Phone Elsewhere, Pcp Primary Care Provider Unavailabl e Encounter Details Date Type Department Care Team (Latest Contact Info) Description 07/03/2023 11:09 AM CDT - 07/03/2023 11:59 PM CDT Hospital Encounter Department of Radiation Oncology in [place], [place] [address] [place] [phone] Hanh Marquez M.D. [address] [place] [address] Discharge Disposition: Home or Self Care Social [...] AM CDT Clinical Communication Virtual Review in [place], [place] [address] [place] [address] 01/09/2024 9:00 AM CDT Appointment Department of Radiation Oncology in [place] [address] [place] [address] Hanh Marquez M.D. [address] [place] [phone] documented as of this encounter Visit Diagnoses Not on filedocumented in this encounter Care Teams Chart Reader Relationship Specialty Start Date End Date Elsewhere, Pcp PCP - General Family Medicine 05/07/23 documented as of this encounter
--- OUTSIDE RECORDS SUMMARY | 2023-10-30 08:47 | XMS_ITS | Encounter Summary ---
Author Name Unknown Organization [facility] Address [address] [place] [address] Care Team Providers Care Optical Fabricator Name Role Phone Elsewhere, Pcp Primary Care Provider Unavailabl e Encounter Details Date Type Department Care Team (Latest Contact Info) Description 07/02/2023 10:40 AM CDT - 07/02/2023 11:13 AM CDT Hospital Encounter Department of Radiation Oncology in [place], [place] [address] [place] [address] Hanh Marquez M.D. [address] [place] [address] Discharge Disposition: Home or Self Care Social [...] AM CDT Clinical Communication Virtual Review in [place], [place] [address] [place] [address] 01/09/2024 9:00 AM CDT Appointment Department of Radiation Oncology in [place] [address] [place] [address] Hanh Marquez M.D. [address] [place] [phone] documented as of this encounter Visit Diagnoses Not on filedocumented in this encounter Care Teams Optical Fabricator Relationship Specialty Start Date End Date Elsewhere, Pcp PCP - General Family Medicine 05/07/23 documented as of this encounter
--- OUTSIDE RECORDS SUMMARY | 2023-10-30 08:48 | XMS_ITS | Encounter Summary ---
Author Name Unknown Organization [facility] Address [address] [place] [address] Care Team Providers Care Field Adjuster Name Role Phone Elsewhere, Pcp Primary Care Provider Unavailabl e Reason for Referral * Radiation Therapy (Routine) - Authorized Specialty Diagnoses / Procedures Referred By Contac t Referred To Contact Diagnoses Malignant Neoplasm Of Lung Adenocarcinoma Right (HCC) Procedures Management Visit Hanh Marquez M.D. [address] [place] [address] [facility] Region Referral ID Status Reason Start Date Expiration Date V isits Requested Visits Authorized [id number] Authorized 05/15/2023 05/14/2024 10 10 Reason for Visit * Radiation Therapy (Routine) - Authorized Specialty Diagnoses / Procedures Referred By Vaibhav braden Referred To Contact Diagnoses Malignant Neoplasm Of Lung Adenocarcinoma Right (HCC) Procedures Management Visit Hanh Marquez M.D. [address] [place] [address] [facility] Region Referral ID Status Reason Start Date Expiration Date V isits Requested Visits Authorized [id number] Authorized 05/15/2023 05/14/2024 10 10 Encounter Details Date Type Department Care Team (Latest Contact Info) Description 06/19/2023 9:11 AM CDT - 06/19/2023 1:51 PM CDT Hospital Encounter Department of Radiation Oncology in [address] [phone] Hanh Marquez M.D. [address] [place] [address] Malignant Neoplasm Of Lung Adenocarcinoma Right (HCC) [...] Sign Reading Time Taken Comments Blood Pressure 83/48 06/19/2023 9:56 AM CDT Pulse 66 06/19/2023 9:56 AM CDT Temperature 36.6 ??C (97.8 ??F) 06/19/2023 9:56 AM CD T Respiratory Rate - - Oxygen Saturation - - Inhaled Oxygen Concentration - - Weight 45 kg (99 lb 3.3 oz) 06/19/2023 9:56 AM C DT Height - - Body Mass Index - [...] as of this encounter Progress Notes * Suki Richards R.N. - 06/19/2023 10:00 AM CDT SUBJECTIVE REASON FOR VISIT Evaluation for side [...] (Saturday) chemotherapy treatments with Dr. Cortez at [facility]. Treatment Course: 1xLung Plan ID Fractions Dose / Fraction (cGy) Dose Treated (cGy) Dose Planned (cGy) First Treatment Last Treatment Elapsed Days [id number] / 200 5000 6000 05/15/2023 06/19/2023 35 Course Summary 05/15/2023 06/19/2023 35 The patient was seen and examined today with Dr. Marquez. Patient reports that after chemotherapy infusion this past Saturday she noticed her rash seemed to worsen. A few areas of skin were weeping and scattered areas of the rash felt sore. Patient is applying hydrocortisone ointment to rash but has not started Benadryl. Patient reports temperature of 100.4and chills once this past week but none since. She had two episodes of SOB in the middle of the night. [facility] area helping with management of mucous production and SOB. Minimal hemoptysis occurred oncein the last week. Patient report nausea and pain Saturday night into Saturday. Patient vomited on Saturday and then took Compazine and nausea and vomiting then resolved by late Saturday. Patient is managing esophageal pain with magic mouthwash. Patient has not needed Tylenol or Oxycodone in the last several days. PATIENT REPORTED SYMPTOM SCREEN FATIGUE (Scale: 0 = no fatigue; 10 = worst fatigue you can imagine): 3 PAIN (Scale: 0 = no pain; 10 = worst pain you can imagine): 6-7 OVERALL QUALITY OF LIFE (Scale: 0 = as bad as can be; 10 = as good as can be): 9 OBJECTIVE BP (!) 83/48 (BP Location: Right arm, Patient Position: Sitting, Cuff Size: Regular) Pulse 66 Temp 36.6 ??C (Temporal) Wt 45 kg PHYSICAL EXAM General: Alert and oriented in no apparent distress. 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 Patient reports that she had a tough weekend and was struggling with nausea. She didn't have enoughCompazine for the weekend and was having trouble getting a prescription filled with [facility]. The prescription should be filled today so that the patient can resume taking Compazine. Patient is having esophageal pain that she rates a 9 out of 10. She is taking Oxycodone ?? tablet every 4 hours an d does find this helpful. Patient has also been experiencing intermittent headaches in which she takes Tylenol. At night patient reports that the cough and the phlegm are worse despite taking Mucinex. Nebulizer treatments do help with management of mucous production and shortness of breath. She also reports having a cool mist humidifier at her bedside. She is primarily eating a soft diet due to discomfort with eating. She continues to have a rash that she is applying hydrocortisone cream. The patient is tolerating treatment with anticipated side effects. Patient can continue to use Oxycodone and Tylenol for pain control. Patient's weight remains stable. She will continue with radiation as planned. She can contact our care team with any questions or concerns. Signed by: Suki Richards R.N. 06/19/2023 10:43 AM CDT ATTESTATION FOR MANAGEMENT VISIT I saw and evaluated the patient and participated in the galvan portions of the service as noted above.I reviewed the documentation of Ms. Suki Richards RN and agree with the findings and plan. Thepatient appears well on exam. We will continue with radiation as planned and monitor weekly. Hanh Marquez M.D., 06/19/2023 Associated attestation - Hanh Marquez M.D. - 06/21/2023 5:20 PM CDT ATTESTATION FOR MANAGEMENT VISIT I saw and evaluated the patient and participated in the galvan portions of the service as noted below.I reviewed the documentation of Ms. Suki Richards RN and agree with the findings and plan. Thepatient appears well on exam. We will continue with radiation as planned and monitor weekly. Hanh Marquez M.D., 06/19/2023 documented in this encounter Miscellaneous Notes * Addendum Note - Hanh Marquez M.D. - 06/19/2023 10:00 AM CDTEncounter addended by: Hanh Marquez M.D. on: 06/21/2023 5:20 PM Actions taken: Cosign clinical note with attestation documented in this encounter Plan of Treatment Upcoming Encounters Date Type Department Care Team (Latest Contact Info) Description 01/07/2024 9:00 AM CDT Clinical Communication Virtual Review in [address] [address] 01/09/2024 9:00 AM CDT Appointment Department of Radiation Oncology in [place], [place] [address] [place] [address] Hanh Marquez M.D. [address] [place] [address] Scheduled Orders Name Type Priority Associated Diagnoses Orde r Schedule Management Visit Radiation Oncology Routine Malignant Neoplasm Of Lung Adenocarcinoma Right (HCC) Once for 1 Occurrences starting 06/19/2023 until 06/19/2023 documented as of this encounter Visit Diagnoses Diagnosis Malignant Neoplasm Of Lung Adenocarcinoma Right (HCC) documented in this encounter Care Teams Field Adjuster Relationship Specialty Start Date End Date Elsewhere, Pcp PCP - General Family Medicine 05/07/23 documented as of this encounter
--- OUTSIDE RECORDS SUMMARY | 2023-10-30 08:48 | XMS_ITS | Encounter Summary ---
Author Name Unknown Organization [facility] Address [address] [place] [address] Care Team Providers Care Freight Car Builder Name Role Phone Elsewhere, Pcp Primary Care Provider Unavailabl e Encounter Details Date Type Department Care Team (Latest Contact Info) Description 06/10/2023 11:05 AM CDT - 06/10/2023 11:59 PM CDT Hospital Encounter Department of Radiation Oncology in [place], [place] [address] [place] [address] Hanh Marquez M.D. [address] [place] [address] Discharge Disposition: Home or Self Care Social [...] AM CDT Clinical Communication Virtual Review in [place], [place] [address] [place] [address] 01/09/2024 9:00 AM CDT Appointment Department of Radiation Oncology in [place], [place] [address] [place] [address] Hanh Marquez M.D. [address] [place] [phone] documented as of this encounter Visit Diagnoses Not on filedocumented in this encounter Care Teams Freight Car Builder Relationship Specialty Start Date End Date Elsewhere, Pcp PCP - General Family Medicine 05/07/23 documented as of this encounter
--- OUTSIDE RECORDS SUMMARY | 2023-10-30 08:48 | XMS_ITS | Encounter Summary ---
Author Name Unknown Organization [facility] Address [address] [place] [address] Care Team Providers Care Veterinarian Helper Name Role Phone Elsewhere, Pcp Primary Care Provider Unavailabl e Encounter Details Date Type Department Care Team (Latest Contact Info) Description 06/20/2023 7:45 AM CDT - 06/20/2023 11:59 PM CDT Hospital Encounter Department of Radiation Oncology in [place], [place] [address] [place] [address] Hanh Marquez M.D. [address] [place] [address] Discharge Disposition: Home or Self Care Social [...] AM CDT Clinical Communication Virtual Review in [place], [place] [address] [place] [address] 01/09/2024 9:00 AM CDT Appointment Department of Radiation Oncology in [place], [place] [address] [place] [address] Hanh Marquez M.D. [address] [place] [phone] documented as of this encounter Visit Diagnoses Not on filedocumented in this encounter Care Teams Veterinarian Helper Relationship Specialty Start Date End Date Elsewhere, Pcp PCP - General Family Medicine 05/07/23 documented as of this encounter
--- OUTSIDE RECORDS SUMMARY | 2023-10-30 08:48 | XMS_ITS | Encounter Summary ---
Author Name Unknown Organization [facility] Address [address] [place] [address] Care Team Providers Care Terminal Make Up Operator Name Role Phone Elsewhere, Pcp Primary Care Provider Unavailabl e Encounter Details Date Type Department Care Team (Latest Contact Info) Description 06/07/2023 2:47 PM CDT - 06/07/2023 11:59 PM CDT Hospital Encounter Department of Radiation Oncology in [place], [place] [address] [place] [phone] Hanh Marquez M.D. [address] [place] [address] Discharge Disposition: Home or Self Care Social [...] AM CDT Clinical Communication Virtual Review in [place], [place] [address] [place] [address] 01/09/2024 9:00 AM CDT Appointment Department of Radiation Oncology in [place], [place] [address] [place] [address] Hanh Marquez M.D. [address] [place] [address] documented as of this encounter Visit Diagnoses Not on filedocumented in this encounter Care Teams Terminal Make Up Operator Relationship Specialty Start Date End Date Elsewhere, Pcp PCP - General Family Medicine 05/07/23 documented as of this encounter
--- OUTSIDE RECORDS SUMMARY | 2023-10-30 08:48 | XMS_ITS | Encounter Summary ---
Author Name Unknown Organization [facility] Address [address] [place] [address] Care Team Providers Care Airplane Navigator Name Role Phone Elsewhere, Pcp Primary Care Provider Unavailabl e Encounter Details Date Type Department Care Team (Latest Contact Info) Description 06/18/2023 9:14 AM CDT - 06/18/2023 11:59 PM CDT Hospital Encounter Department of Radiation Oncology in [place], [place] [address] [place] [phone] Hanh Marquez M.D. [address] [place] [address] Discharge Disposition: Home or Self Care Social [...] AM CDT Clinical Communication Virtual Review in [place], [place] [address] [place] [address] 01/09/2024 9:00 AM CDT Appointment Department of Radiation Oncology in [place], [place] [address] [place] [address] Hanh Marquez M.D. [address] [place] [phone] documented as of this encounter Visit Diagnoses Not on filedocumented in this encounter Care Teams Airplane Navigator Relationship Specialty Start Date End Date Elsewhere, Pcp PCP - General Family Medicine 05/07/23 documented as of this encounter
--- OUTSIDE RECORDS SUMMARY | 2023-10-30 08:48 | XMS_ITS | Encounter Summary ---
Author Name Unknown Organization [facility] Address [address] [place] [address] Care Team Providers Care Onion Tier Name Role Phone Elsewhere, Pcp Primary Care Provider Unavailabl e Encounter Details Date Type Department Care Team (Latest Contact Info) Description 06/13/2023 9:36 AM CDT - 06/13/2023 11:59 PM CDT Hospital Encounter Department of Radiation Oncology in [place], [place] [address] [place] [address] Hanh Marquez M.D. [address] [place] [address] Discharge Disposition: Home or Self Care Social [...] AM CDT Clinical Communication Virtual Review in [place], [place] [address] [place] [address] 01/09/2024 9:00 AM CDT Appointment Department of Radiation Oncology in [place], [place] [address] [place] [address] Hanh Marquez M.D. [address] [place] [phone] documented as of this encounter Visit Diagnoses Not on filedocumented in this encounter Care Teams Onion Tier Relationship Specialty Start Date End Date Elsewhere, Pcp PCP - General Family Medicine 05/07/23 documented as of this encounter
--- OUTSIDE RECORDS SUMMARY | 2023-10-30 08:48 | XMS_ITS | Encounter Summary ---
Author Name Unknown Organization [facility] Address [address] [place] [address] Care Team Providers Care Forestry Biology Specialist Name Role Phone Elsewhere, Pcp Primary Care Provider Unavailabl e Encounter Details Date Type Department Care Team (Latest Contact Info) Description 06/11/2023 9:35 AM CDT - 06/11/2023 11:59 PM CDT Hospital Encounter Department of Radiation Oncology in [place], [place] [address] [place] [phone] Hanh Marquez M.D. [address] [place] [address] Discharge Disposition: Home or Self Care Social [...] AM CDT Clinical Communication Virtual Review in [place], [place] [address] [place] [address] 01/09/2024 9:00 AM CDT Appointment Department of Radiation Oncology in [place], [place] [address] [place] [address] Hanh Marquez M.D. [address] [place] [phone] documented as of this encounter Visit Diagnoses Not on filedocumented in this encounter Care Teams Forestry Biology Specialist Relationship Specialty Start Date End Date Elsewhere, Pcp PCP - General Family Medicine 05/07/23 documented as of this encounter
--- OUTSIDE RECORDS SUMMARY | 2023-10-30 08:48 | XMS_ITS | Encounter Summary ---
Author Name Unknown Organization [facility] Address [address] [place] [address] Care Team Providers Care Location Worker Name Role Phone Elsewhere, Pcp Primary Care Provider Unavailabl e Reason for Referral * Radiation Therapy (Routine) - Authorized Specialty Diagnoses / Procedures Referred By Contac t Referred To Contact Diagnoses Malignant Neoplasm Of Lung Adenocarcinoma Right (HCC) Procedures Management Visit Hanh Marquez M.D. [address] [place] [address] [facility] Region Referral ID Status Reason Start Date Expiration Date V isits Requested Visits Authorized [id number] Authorized 05/15/2023 05/14/2024 10 10 Reason for Visit * Radiation Therapy (Routine) - Authorized Specialty Diagnoses / Procedures Referred By Vaibhav braden Referred To Contact Diagnoses Malignant Neoplasm Of Lung Adenocarcinoma Right (HCC) Procedures Management Visit Hanh Marquez M.D. [address] [place] [address] [facility] Region Referral ID Status Reason Start Date Expiration Date V isits Requested Visits Authorized [id number] Authorized 05/15/2023 05/14/2024 10 10 Encounter Details Date Type Department Care Team (Latest Contact Info) Description 06/05/2023 1:06 PM CDT - 06/05/2023 1:29 PM CDT Hospital Encounter Department of Radiation Oncology in [address] [address] Bala Salter M.D. [address] [place] [phone] Hanh Marquez M.D. 200 [place] [address] Malignant Neoplasm Of Lung Adenocarcinoma Right (HCC) [...] Pressure - - Pulse - - Temperature 36.2 ??C (97.2 ??F) 06/05/2023 1:14 PM CD T Respiratory Rate - - Oxygen Saturation - - Inhaled Oxygen Concentration - - Weight 45 kg (99 lb 3.2 oz) 06/05/2023 1:14 PM C DT Height - - Body Mass [...] as of this encounter Progress Notes * Nicole Robertson APRN, C.N.P., D.N.P. - 06/05/2023 1:15 PM CDT SUBJECTIVE REASON FOR VISIT Evaluation for [...] (Saturday) chemotherapy treatments with Dr. Cortez at [facility]. Treatment Course: 1xLung Plan ID Fractions Dose / Fraction (cGy) Dose Treated (cGy) Dose Planned (cGy) First Treatment Last Treatment Elapsed Days [id number] 200 3000 6000 05/15/2023 06/04/2023 20 Course Summary 05/15/2023 06/04/2023 20 The patient was seen and examined today with Dr. Marquez. Patient reports feeling well overall. She reports good energy. She was experiencing swallow discomfort but feels this has improved. She rates her swallowing discomfort a 1/10. She does have magic mouthwash on hand and only uses it as needed. She was experiencing chest musculoskeletal discomfort butthis has resolved overall. She continues having a cough on and off. She denies hemoptysis. She doesexperience thickened mucus. She utilizes her nebulizers on a daily basis and finds this helpful. She feels her overall mucus production has decreased. Her weight is stable. She does bring to our attention a fever that she experienced last night. She reports her fever was 100.4??. This improved without any medication. She also has been experiencing chills for last week to week and a half. She has a new development of a non raised circular sporadic rash on both her armsgoing up to the shoulders. She reports this started 3 days ago on her wrists and has progressively spread. She also is experiencing it on the back of her left shoulder and her left thigh. She reportsthese areas are tender, with intermittent pruritus. She denies drainage. She denies using any new lotions, creams, soaps, detergents, or new clothes. PATIENT REPORTED SYMPTOM SCREEN FATIGUE (Scale: 0 = no fatigue; 10 = worst fatigue you can imagine): 3 PAIN (Scale: 0 = no pain; 10 = worst pain you can imagine): 0 OVERALL QUALITY OF LIFE (Scale: 0 = as bad as can be; 10 = as good as can be): 8 OBJECTIVE Temp 36.2 ??C (Temporal) Wt 45 kg PHYSICAL EXAM General: Alert and oriented in no apparent distress. 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 The patient is tolerating radiation with anticipated side effects. I encouraged her to continue using Tylenol, oxycodone, and magic mouthwash as needed for pain relief. We discussed reaching out to her medical oncology team to discuss this rash. I affirmed that this is not radiation related but I am unsure if this could be chemo related. We also discussed we could send her to Dermatology for better evaluation. She will plan to reach out to her medical oncology team at this point. She will continue with radiation as planned. We will continue to see her in weekly management visits. She can contact our care team with any questions or concerns. Signed by: Nicole Robertson APRN, C.N.PMarlena, D.N.P. 06/05/2023 1:24 PM CDT Associated attestation - Hanh Marquez M.D. - 06/05/2023 4:35 PM CDT I saw and evaluated the patient and participated in the galvan portions of the service. I reviewed thedocumentation of . Nicoleabdoulaye Robertson APRN and agree with the findings and plan. The patient appears well on exam. We will continue with radiation as planned and monitor weekly. Hanh Marquez M.D., 06/05/2023 documented in this encounter Plan of Treatment Upcoming Encounters Date Type Department Care Team (Latest Contact Info) Description 01/07/2024 9:00 AM CDT Clinical Communication Virtual Review in [place], [place] [address] [place] [address] 01/09/2024 9:00 AM CDT Appointment Department of Radiation Oncology in [place], [place] [address] [place] [address] Hanh Marquez M.D. [address] [place] [phone] Scheduled Orders Name Type Priority Associated Diagnoses Orde r Schedule Management Visit Radiation Oncology Routine Malignant Neoplasm Of Lung Adenocarcinoma Right (HCC) Once for 1 Occurrences starting 06/05/2023 until 06/05/2023 documented as of this encounter Visit Diagnoses Diagnosis Malignant Neoplasm Of Lung Adenocarcinoma Right (HCC) documented in this encounter Care Teams Location Worker Relationship Specialty Start Date End Date Elsewhere, Pcp PCP - General Family Medicine 05/07/23 documented as of this encounter
--- OUTSIDE RECORDS SUMMARY | 2023-10-30 08:48 | XMS_ITS | Encounter Summary ---
Author Name Unknown Organization [facility] Address [address] [place] [address] Care Team Providers Care Rrts Name Role Phone Elsewhere, Pcp Primary Care Provider Unavailabl e Encounter Details Date Type Department Care Team (Latest Contact Info) Description 06/06/2023 10:00 AM CDT - 06/06/2023 11:59 PM CDT Hospital Encounter Department of Radiation Oncology in [place], [place] [address] [place] [phone] Hanh Marquez M.D. 200 [place] [address] Discharge Disposition: Home or Self Care Social [...] AM CDT Clinical Communication Virtual Review in [place], [place] [address] [place] [address] 01/09/2024 9:00 AM CDT Appointment Department of Radiation Oncology in [place], [place] [address] [place] [address] Hanh Marquez M.D. [address] [place] [phone] documented as of this encounter Visit Diagnoses Not on filedocumented in this encounter Care Teams Rrts Relationship Specialty Start Date End Date Elsewhere, Pcp PCP - General Family Medicine 05/07/23 documented as of this encounter
--- OUTSIDE RECORDS SUMMARY | 2023-10-30 08:48 | XMS_ITS | Encounter Summary ---
Author Name Unknown Organization [facility] Address [address] [place] [address] Care Team Providers Care Dry Cure Worker Name Role Phone Elsewhere, Pcp Primary Care Provider Unavailabl e Encounter Details Date Type Department Care Team (Latest Contact Info) Description 06/19/2023 9:11 AM CDT - 06/19/2023 11:59 PM CDT Hospital Encounter Department of Radiation Oncology in [place], [place] [address] [place] [phone] Hanh Marquez M.D. 200 [place] [address] Discharge Disposition: Home or Self Care Social [...] AM CDT Clinical Communication Virtual Review in [place], [place] [address] [place] [address] 01/09/2024 9:00 AM CDT Appointment Department of Radiation Oncology in [place], [place] [address] [place] [address] Hanh Marquez M.D. [address] [place] [phone] documented as of this encounter Visit Diagnoses Not on filedocumented in this encounter Care Teams Dry Cure Worker Relationship Specialty Start Date End Date Elsewhere, Pcp PCP - General Family Medicine 05/07/23 documented as of this encounter
--- OUTSIDE RECORDS SUMMARY | 2023-10-30 08:48 | XMS_ITS | Encounter Summary ---
Author Name Unknown Organization [facility] Address [address] [place] [address] Care Team Providers Care Manager Audio Name Role Phone Elsewhere, Pcp Primary Care Provider Unavailabl e Reason for Referral * Radiation Therapy (Routine) - Authorized Specialty Diagnoses / Procedures Referred By Contac t Referred To Contact Diagnoses Malignant Neoplasm Of Lung Adenocarcinoma Right (HCC) Procedures Management Visit Hanh Marquez M.D. [address] [place] [address] [facility] Region Referral ID Status Reason Start Date Expiration Date V isits Requested Visits Authorized [id number] Authorized 05/15/2023 05/14/2024 10 10 Reason for Visit * Radiation Therapy (Routine) - Authorized Specialty Diagnoses / Procedures Referred By Vaibhav braden Referred To Contact Diagnoses Malignant Neoplasm Of Lung Adenocarcinoma Right (HCC) Procedures Management Visit Hanh Marquez M.D. [address] [place] [address] [facility] Region Referral ID Status Reason Start Date Expiration Date V isits Requested Visits Authorized [id number] Authorized 05/15/2023 05/14/2024 10 10 Encounter Details Date Type Department Care Team (Latest Contact Info) Description 06/11/2023 9:35 AM CDT - 06/11/2023 4:21 PM CDT Hospital Encounter Department of Radiation Oncology in [address] [address] Hanh Marquez M.D. [address] [place] [address] Malignant Neoplasm Of Lung Adenocarcinoma Right (HCC) [...] Sign Reading Time Taken Comments Blood Pressure 140/86 06/11/2023 10:31 AM CDT Pulse 79 06/11/2023 10:31 AM CDT Temperature 36.3 ??C (97.4 ??F) 06/11/2023 10:31 AM C DT Respiratory Rate - - Oxygen Saturation - - Inhaled Oxygen Concentration - - Weight 45.6 kg (100 lb 8.5 oz) 06/11/2023 10:31 AM CDT Height - - Body Mass [...] Progress Notes * Hanh Marquez M.D. - 06/11/2023 10:30 AM CDT SUBJECTIVE REASON FOR VISIT Evaluation [...] (cGy) First Treatment Last Treatment Elapsed Days [id number] 200 4000 6000 05/15/2023 06/11/2023 Course Summary 05/15/2023 06/11/2023 The patient was seen and examined today [...] in the middle of the night. [facility] area helping with management of mucous production [...] good as can be): 9 OBJECTIVE BP 140/86 (BP Location: Right arm, Patient Position: Sitting, Cuff Size: Regular) Pulse 79 Temp36.3 ??C (Temporal) Wt 45.6 kg PHYSICAL EXAM General: Alert and oriented in no apparent distress. 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 The patient is tolerating radiation with anticipated side effects. Patient's weight is stable. If pain is not under control then patient will trial Tylenol on a schedule and Oxycodone if pain not responding to Tylenol. Patient will contact Medical Oncology to further discuss management of rash. Marlenawill continue with radiation as planned. We will continue to see her in weekly management visits. She can contact our care team with any questions or concerns. Signed by: Malena Brito R.N. 06/11/2023 1:30 PM CDT ATTESTATION FOR MANAGEMENT VISIT I saw and evaluated the patient and participated in the galvan portions of the service as noted above.I reviewed the documentation of Ms. Malena Brito RN and agree with the findings and plan. The patient appears well on exam. We will continue with radiation as planned and monitor weekly. Hanh Marquez M.D., 06/11/2023 documented in this encounter Plan of Treatment Upcoming Encounters Date Type Department Care Team (Latest Contact Info) Description 01/07/2024 9:00 AM CDT Clinical Communication Virtual Review in [place], [place] 200 [place] [address] 01/09/2024 9:00 AM CDT Appointment Department of Radiation Oncology in [address] [address] Hanh Marquez M.D. [address] [place] [phone] Scheduled Orders Name Type Priority Associated Diagnoses Orde r Schedule Management Visit Radiation Oncology Routine Malignant Neoplasm Of Lung Adenocarcinoma Right (HCC) Once for 1 Occurrences starting 06/11/2023 until 06/11/2023 documented as of this encounter Visit Diagnoses Diagnosis Malignant Neoplasm Of Lung Adenocarcinoma Right (HCC) documented in this encounter Care Teams Manager Audio Relationship Specialty Start Date End Date Elsewhere, Pcp PCP - General Family Medicine 05/07/23 documented as of this encounter
--- OUTSIDE RECORDS SUMMARY | 2023-10-30 08:48 | XMS_ITS | Encounter Summary ---
Author Name Unknown Organization [facility] Address [address] [place] [address] Care Team Providers Care Fluoroscope Operator Name Role Phone Elsewhere, Pcp Primary Care Provider Unavailabl e Encounter Details Date Type Department Care Team (Latest Contact Info) Description 06/14/2023 7:48 AM CDT - 06/14/2023 11:59 PM CDT Hospital Encounter Department of Radiation Oncology in [place], [place] [address] [place] [phone] Hanh Marquez M.D. 200 [place] [address] Discharge Disposition: Home or Self Care Social [...] AM CDT Clinical Communication Virtual Review in [place], [place] [address] [place] [address] 01/09/2024 9:00 AM CDT Appointment Department of Radiation Oncology in [place], [place] [address] [place] [address] Hanh Marquez M.D. [address] [place] [phone] documented as of this encounter Visit Diagnoses Not on filedocumented in this encounter Care Teams Fluoroscope Operator Relationship Specialty Start Date End Date Elsewhere, Pcp PCP - General Family Medicine 05/07/23 documented as of this encounter
--- OUTSIDE RECORDS SUMMARY | 2023-10-30 08:48 | XMS_ITS | Encounter Summary ---
Author Name Unknown Organization [facility] Address [address] [place] [address] Care Team Providers Care Director Construction Services Name Role Phone Elsewhere, Pcp Primary Care Provider Unavailabl e Encounter Details Date Type Department Care Team (Latest Contact Info) Description 06/12/2023 3:19 PM CDT - 06/12/2023 11:59 PM CDT Hospital Encounter Department of Radiation Oncology in [place], [place] [address] [place] [phone] Hanh Marquez M.D. [address] [place] [address] Discharge Disposition: Home or Self Care Social [...] AM CDT Clinical Communication Virtual Review in [place], [place] [address] [place] [address] 01/09/2024 9:00 AM CDT Appointment Department of Radiation Oncology in [place], [place] [address] [place] [address] Hanh Marquez M.D. [address] [place] [phone] documented as of this encounter Visit Diagnoses Not on filedocumented in this encounter Care Teams Director Construction Services Relationship Specialty Start Date End Date Elsewhere, Pcp PCP - General Family Medicine 05/07/23 documented as of this encounter
--- OUTSIDE RECORDS SUMMARY | 2023-10-30 08:49 | XMS_ITS | Encounter Summary ---
Author Name Unknown Organization [facility] Address [address] [place] [address] Care Team Providers Care Medication Reconciliation Technician Name Role Phone Elsewhere, Pcp Primary Care Provider Unavailabl e Encounter Details Date Type Department Care Team (Latest Contact Info) Description 06/03/2023 12:58 PM CDT - 06/03/2023 11:59 PM CDT Hospital Encounter Department of Radiation Oncology in [place], [place] [address] [place] [phone] Hanh Marquez M.D. [address] [place] [address] Discharge Disposition: Home or Self Care Social [...] AM CDT Clinical Communication Virtual Review in [place], [place] [address] [place] [address] 01/09/2024 9:00 AM CDT Appointment Department of Radiation Oncology in [place], [place] [address] [place] [address] Hanh Marquez M.D. [address] [place] [phone] documented as of this encounter Visit Diagnoses Not on filedocumented in this encounter Care Teams Medication Reconciliation Technician Relationship Specialty Start Date End Date Elsewhere, Pcp PCP - General Family Medicine 05/07/23 documented as of this encounter
--- OUTSIDE RECORDS SUMMARY | 2023-10-30 08:49 | XMS_ITS | Encounter Summary ---
Author Name Unknown Organization [facility] Address [address] [place] [address] Care Team Providers Care Route Contractor Name Role Phone Elsewhere, Pcp Primary Care Provider Unavailabl e Encounter Details Date Type Department Care Team (Latest Contact Info) Description 05/31/2023 2:41 PM CDT - 05/31/2023 11:59 PM CDT Hospital Encounter Department of Radiation Oncology in [place], [place] [address] [place] [phone] Hanh Marquez M.D. [address] [place] [address] Discharge Disposition: Home or Self Care Social [...] times a day as needed. 0 04/23/2023 diazePAM (VALIUM) 5 mg tablet TAKE 1 [...] AM CDT Clinical Communication Virtual Review in [place], [place] [address] [place] [address] 01/09/2024 9:00 AM CDT Appointment Department of Radiation Oncology in [address] [phone] Hanh Marquez M.D. [address] [place] [phone] documented as of this encounter Visit Diagnoses Not on filedocumented in this encounter Care Teams Route Contractor Relationship Specialty Start Date End Date Elsewhere, Pcp PCP - General Family Medicine 05/07/23 documented as of this encounter
--- OUTSIDE RECORDS SUMMARY | 2023-10-30 08:49 | XMS_ITS | Encounter Summary ---
Author Name Unknown Organization [facility] Address [address] [place] [address] Care Team Providers Care Box Fabricator Name Role Phone Elsewhere, Pcp Primary Care Provider Unavailabl e Reason for Referral * Radiation Therapy (Routine) - Authorized Specialty Diagnoses / Procedures Referred By Contac t Referred To Contact Diagnoses Malignant Neoplasm Of Lung Adenocarcinoma Right (HCC) Procedures Management Visit Hanh Marquez M.D. [address] [place] [address] [facility] Region Referral ID Status Reason Start Date Expiration Date V isits Requested Visits Authorized [id number] Authorized 05/15/2023 05/14/2024 10 10 Reason for Visit * Radiation Therapy (Routine) - Authorized Specialty Diagnoses / Procedures Referred By Vaibhav braden Referred To Contact Diagnoses Malignant Neoplasm Of Lung Adenocarcinoma Right (HCC) Procedures Management Visit Hanh Marquez M.D. [address] [place] [address] [facility] Region Referral ID Status Reason Start Date Expiration Date V isits Requested Visits Authorized [id number] Authorized 05/15/2023 05/14/2024 10 10 Encounter Details Date Type Department Care Team (Latest Contact Info) Description 06/04/2023 12:52 PM CDT - 06/04/2023 1:18 PM CDT Hospital Encounter Department of Radiation Oncology in [address] [address] Bala Salter M.D. [address] [place] [address] Malignant Neoplasm Of Lung Adenocarcinoma Right (HCC) Discharge Disposition: Home or Self Care Social [...] Date Recorded Dental: Regular Dentist Unknown 04/27/20 Sex and Gender Information Value Date Recorded [...] AM CDT Clinical Communication Virtual Review in [place], [place] [address] [place] [address] 01/09/2024 9:00 AM CDT Appointment Department of Radiation Oncology in [address] [phone] Hanh Marquez M.D. [address] [place] [address] Scheduled Orders Name Type Priority Associated Diagnoses Orde r Schedule Management Visit Radiation Oncology Routine Malignant Neoplasm Of Lung Adenocarcinoma Right (HCC) Once for 1 Occurrences starting 06/04/2023 until 06/04/2023 documented as of this encounter Visit Diagnoses Diagnosis Malignant Neoplasm Of Lung Adenocarcinoma Right (HCC) documented in this encounter Care Teams Box Fabricator Relationship Specialty Start Date End Date Elsewhere, Pcp PCP - General Family Medicine 05/07/23 documented as of this encounter
--- OUTSIDE RECORDS SUMMARY | 2023-10-30 08:49 | XMS_ITS | Encounter Summary ---
Author Name Unknown Organization [facility] Address [address] [place] [address] Care Team Providers Care Rock Lather Name Role Phone Elsewhere, Pcp Primary Care Provider Unavailabl e Encounter Details Date Type Department Care Team (Latest Contact Info) Description 06/05/2023 1:30 PM CDT - 06/05/2023 11:59 PM CDT Hospital Encounter Department of Radiation Oncology in [place], [place] [address] [place] [phone] Hanh Marquez M.D. 200 [place] [address] Discharge Disposition: Home or Self Care Social [...] AM CDT Clinical Communication Virtual Review in [place], [place] [address] [place] [address] 01/09/2024 9:00 AM CDT Appointment Department of Radiation Oncology in [place], [place] [address] [place] [address] Hanh Marquez M.D. [address] [place] [phone] documented as of this encounter Visit Diagnoses Not on filedocumented in this encounter Care Teams Rock Lather Relationship Specialty Start Date End Date Elsewhere, Pcp PCP - General Family Medicine 05/07/23 documented as of this encounter
--- OUTSIDE RECORDS SUMMARY | 2023-10-30 08:49 | XMS_ITS | Encounter Summary ---
Author Name Unknown Organization [facility] Address [address] [place] [address] Care Team Providers Care Thread Twister Name Role Phone Elsewhere, Pcp Primary Care Provider Unavailabl e Reason for Referral * Radiation Therapy (Routine) - Authorized Specialty Diagnoses / Procedures Referred By Contac t Referred To Contact Diagnoses Malignant Neoplasm Of Lung Adenocarcinoma Right (HCC) Procedures Management Visit Hanh Marquez M.D. [address] [place] [address] [facility] Region Referral ID Status Reason Start Date Expiration Date V isits Requested Visits Authorized [id number] Authorized 05/15/2023 05/14/2024 10 10 Reason for Visit * Radiation Therapy (Routine) - Authorized Specialty Diagnoses / Procedures Referred By Vaibhav braden Referred To Contact Diagnoses Malignant Neoplasm Of Lung Adenocarcinoma Right (HCC) Procedures Management Visit Hanh Marquez M.D. [address] [place] [address] [facility] Region Referral ID Status Reason Start Date Expiration Date V isits Requested Visits Authorized [id number] Authorized 05/15/2023 05/14/2024 10 10 Encounter Details Date Type Department Care Team (Latest Contact Info) Description 05/28/2023 3:32 PM CDT - 05/28/2023 6:06 PM CDT Hospital Encounter Department of Radiation Oncology in [address] [address] Bala Salter M.D. [address] [place] [address] Malignant Neoplasm Of Lung Adenocarcinoma Right (HCC) [...] Medication: duoneb Length of need:lifetime 0 12/21/2019 ondansetron ODT (ZOFRAN-ODT) 4 mg disintegrating tablet [...] as of this encounter Progress Notes * Bala Salter M.D. - 05/28/2023 3:45 PM CDT SUBJECTIVE REASON FOR VISIT Evaluation for side effects while receiving radiation treatment for 1. Malignant Neoplasm Of Lung Adenocarcinoma Right (HCC) HISTORY OF PRESENT ILLNESS Mrs. Racheal Regalado is a 73 y.o. 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 Patient gets weekly (Saturday) chemotherapy treatments with Dr. Cortez at [facility]. Treatment Course: 1xLung Plan ID Fractions Dose / Fraction (cGy) Dose Treated (cGy) Dose Planned (cGy) First Treatment Last Treatment Elapsed Days [id number] 200 2000 6000 05/15/2023 05/28/2023 13 Course Summary 05/15/2023 05/28/2023 13 The patient reports that she has had subconjunctival hemorrhages off and on preceding radiotherapy.He saw her bead trimmer recently because her symptoms worsen and he questioned whether or not the patient's breath hold treatments are exacerbating her subconjunctival hemorrhage. Per the patient's report, the bead trimmer did not see any vitreous hemorrhage. The therapists called me to the treatmentmachine today to discuss this with her. She notes that her vision is only mildly blurry. She also reports mild discomfort in her right eye. OBJECTIVE There were no vitals taken for this visit. PHYSICAL EXAM General: Alert and oriented in no apparent distress. She was seen at the treatment machine with thetherapists. HEENT: There is subconjunctival hemorrhage present in the lateral aspect of the right eye. ASSESSMENT / PLAN #1 Stage IIIB (cT1b, cN3, cM0) adenocarcinoma of the left lung #2 Radiotherapy to mediastinum and tumor left lower lobe with concurrent chemotherapy initiated on May 15, 2023; anticipated completion on June 26, 2023 #3 Subconjunctival hemorrhage, OD, preceding radiotherapy The patient has had subconjunctival hemorrhages that preceded her radiotherapy. Per her report her bead trimmer did not see any vitreous hemorrhages. She is questioning whether or not she should proceed with breath hold treatments. It is not clear to me that breath hold is actually exacerbating her right eye symptoms. I gave her the option of waiting to discuss this further with Dr. Marquez tomorrow and holding her treatment today. We mutually agreed to proceed with treatment. She will discuss things further with Dr. Marquez tomorrow. She verbalized satisfaction with this plan. Signed by: Bala Salter M.D. 05/28/23 6:05 PM CDT [facility] [place] documented in this encounter Plan of Treatment Upcoming Encounters Date Type Department Care Team (Latest Contact Info) Description 01/07/2024 9:00 AM CDT Clinical Communication Virtual Review in [place], [place] [address] [place] [address] 01/09/2024 9:00 AM CDT Appointment Department of Radiation Oncology in [place], [place] [address] [place] [address] Hanh Marquez M.D. [address] [place] [phone] Scheduled Orders Name Type Priority Associated Diagnoses Orde r Schedule Management Visit Radiation Oncology Routine Malignant Neoplasm Of Lung Adenocarcinoma Right (HCC) Once for 1 Occurrences starting 05/28/2023 until 05/28/2023 documented as of this encounter Visit Diagnoses Diagnosis Malignant Neoplasm Of Lung Adenocarcinoma Right (HCC) documented in this encounter Care Teams Thread Twister Relationship Specialty Start Date End Date Elsewhere, Pcp PCP - General Family Medicine 05/07/23 documented as of this encounter
--- OUTSIDE RECORDS SUMMARY | 2023-10-30 08:49 | XMS_ITS | Encounter Summary ---
Author Name Unknown Organization [facility] Address [address] [place] [address] Care Team Providers Care Job Putter Up And Ticket Preparer Name Role Phone Elsewhere, Pcp Primary Care Provider Unavailabl e Encounter Details Date Type Department Care Team (Latest Contact Info) Description 05/24/2023 7:55 AM CDT - 05/24/2023 11:59 PM CDT Hospital Encounter Department of Radiation Oncology in [place], [place] [address] [place] [phone] Hanh Marquez M.D. 200 [place] [address] Discharge Disposition: Home or Self Care Social [...] needed for cancer related pain.* 0 05/11/2023 lidocaine-prilocaine (EMLA) 2.5-2.5 % cream 1 application [...] AM CDT Clinical Communication Virtual Review in [place], [place] [address] [place] [address] 01/09/2024 9:00 AM CDT Appointment Department of Radiation Oncology in [address] [phone] Hanh Marquez M.D. [address] [place] [phone] documented as of this encounter Visit Diagnoses Not on filedocumented in this encounter Care Teams Job Putter Up And Ticket Preparer Relationship Specialty Start Date End Date Elsewhere, Pcp PCP - General Family Medicine 05/07/23 documented as of this encounter
--- OUTSIDE RECORDS SUMMARY | 2023-10-30 08:49 | XMS_ITS | Encounter Summary ---
Author Name Unknown Organization [facility] Address [address] [place] [address] Care Team Providers Care Entry Level Buyer Name Role Phone Elsewhere, Pcp Primary Care Provider Unavailabl e Encounter Details Date Type Department Care Team (Latest Contact Info) Description 05/30/2023 1:19 PM CDT - 05/30/2023 11:59 PM CDT Hospital Encounter Department of Radiation Oncology in [place], [place] [address] [place] [phone] Hanh Marquez M.D. 200 [place] [address] Discharge Disposition: Home or Self Care Social [...] AM CDT Clinical Communication Virtual Review in [place], [place] [address] [place] [address] 01/09/2024 9:00 AM CDT Appointment Department of Radiation Oncology in [address] [phone] Hanh Marquez M.D. [address] [place] [phone] documented as of this encounter Visit Diagnoses Not on filedocumented in this encounter Care Teams Entry Level Buyer Relationship Specialty Start Date End Date Elsewhere, Pcp PCP - General Family Medicine 05/07/23 documented as of this encounter
--- OUTSIDE RECORDS SUMMARY | 2023-10-30 08:49 | XMS_ITS | Encounter Summary ---
Author Name Unknown Organization [facility] Address [address] [place] [address] Care Team Providers Care Metal Door Assembler Name Role Phone Elsewhere, Pcp Primary Care Provider Unavailabl e Encounter Details Date Type Department Care Team (Latest Contact Info) Description 06/04/2023 1:19 PM CDT - 06/04/2023 11:59 PM CDT Hospital Encounter Department of Radiation Oncology in [place], [place] [address] [place] [phone] Hanh Marquez M.D. 200 [place] [address] Discharge Disposition: Home or Self Care Social [...] AM CDT Clinical Communication Virtual Review in [place], [place] [address] [place] [address] 01/09/2024 9:00 AM CDT Appointment Department of Radiation Oncology in [place], [place] [address] [place] [address] Hanh Marquez M.D. [address] [place] [phone] documented as of this encounter Visit Diagnoses Not on filedocumented in this encounter Care Teams Metal Door Assembler Relationship Specialty Start Date End Date Elsewhere, Pcp PCP - General Family Medicine 05/07/23 documented as of this encounter
--- OUTSIDE RECORDS SUMMARY | 2023-10-30 08:49 | XMS_ITS | Encounter Summary ---
Author Name Unknown Organization [facility] Address [address] [place] [address] Care Team Providers Care Casting Technician Name Role Phone Elsewhere, Pcp Primary Care Provider Unavailabl e Reason for Visit * Outpatient (Routine) - Closed Specialty Diagnoses / Procedures Referred By Vaibhav t Referred To Contact Social Work Diagnoses Malignant Neoplasm Of Lung Adenocarcinoma Right (HCC) Hanh Marquez M.D. [address] [place] [address] [facility] Region Referral ID Status Reason Start Date Expiration Date Visits Re quested Visits Authorized [id number] Closed 05/16/2023 05/15/2024 1 1 Encounter Details Date Type Department Care Team (Latest Contact Info) Description 06/04/2023 6:56 AM CDT - 06/04/2023 9:07 AM CDT Hospital Encounter Department of Radiation Oncology in [place], [place] [address] [place] [phone] Hanh Marquez M.D. [address] [place] [address] Radha Rodriguez L.I.CMarlenaS.W., M.S.W. [address] [place] [phone] Malignant Neoplasm Of Lung Adenocarcinoma Right (HCC) (Primary Dx) Social History Tobacco Use [...] 0 06/20/2021 documented as of this encounter Consult Notes * Radha Rodriguez L.I.C.SLino, M.S.W. - 06/04/2023 9:00 AM CDT Consult conducted via real-time audio technology by Germain Buck., M.S.WMarlena in [facility] Reinaldo Beltran to the patient in the patient's home. Type of service: Supportive counseling Start time: 8:57 End time: 9:04 Social work called Racheal for a psychosocial assessment supportive counseling since we had to reschedule last week due to her having chemo. She reports today she is also running out the door for radiation and another appointment. She states that she doesn't feel like she needs to reschedule again asshe only has two weeks left and feels she will get through it with her kids and grandkids. She talks about her frustrations with her 's behavior and states, I will not let him defeat me. Shewas encouraged to reach out should she feel like she wants or needs further support. documented in this encounter Plan of Treatment Upcoming Encounters Date Type Department Care Team (Latest Contact Info) Description 01/07/2024 9:00 AM CDT Clinical Communication Virtual Review in [place], [place] [address] [place] [address] 01/09/2024 9:00 AM CDT Appointment Department of Radiation Oncology in [place], [place] [address] [place] [address] Hanh Marquez M.D. [address] [place] [phone] documented as of this encounter Visit Diagnoses Diagnosis Malignant Neoplasm Of Lung Adenocarcinoma Right (HCC)- Primary documented in this encounter Care Teams Casting Technician Relationship Specialty Start Date End Date Elsewhere, Pcp PCP - General Family Medicine 05/07/23 documented as of this encounter
--- OUTSIDE RECORDS SUMMARY | 2023-10-30 08:49 | XMS_ITS | Encounter Summary ---
Author Name Unknown Organization [facility] Address [address] [place] [address] Care Team Providers Care Drum Tender Name Role Phone Elsewhere, Pcp Primary Care Provider Unavailabl e Reason for Referral * Radiation Therapy (Routine) - Authorized Specialty Diagnoses / Procedures Referred By Contac t Referred To Contact Diagnoses Malignant Neoplasm Of Lung Adenocarcinoma Right (HCC) Procedures Management Visit Hanh Marquez M.D. [address] [place] [address] [facility] Region Referral ID Status Reason Start Date Expiration Date V isits Requested Visits Authorized [id number] Authorized 05/15/2023 05/14/2024 10 10 Reason for Visit * Radiation Therapy (Routine) - Authorized Specialty Diagnoses / Procedures Referred By Vaibhav braden Referred To Contact Diagnoses Malignant Neoplasm Of Lung Adenocarcinoma Right (HCC) Procedures Management Visit Hanh Marquez M.D. [address] [place] [address] [facility] Region Referral ID Status Reason Start Date Expiration Date V isits Requested Visits Authorized [id number] Authorized 05/15/2023 05/14/2024 10 10 Encounter Details Date Type Department Care Team (Latest Contact Info) Description 05/29/2023 8:41 AM CDT - 05/29/2023 9:14 AM CDT Hospital Encounter Department of Radiation Oncology in [address] [phone] Hanh Marquez M.D. [address] [place] [address] Malignant Neoplasm Of Lung Adenocarcinoma Right (HCC) [...] Sign Reading Time Taken Comments Blood Pressure 125/68 05/29/2023 9:15 AM CDT Pulse 87 05/29/2023 9:15 AM CDT Temperature 36.2 ??C (97.1 ??F) 05/29/2023 9:15 AM CD T Respiratory Rate - - Oxygen Saturation - - Inhaled Oxygen Concentration - - Weight 45.4 kg (100 lb 1.4 oz) 05/29/2023 9:15 A M CDT Height - - Body Mass Index [...] of this encounter Progress Notes * Hanh Marquze M.D. - 05/29/2023 9:00 AM CDT ATTESTATION FOR MANAGEMENT VISIT I saw and evaluated the patient and participated in the galvan portions of the service as noted below.I reviewed the documentation of Ms. Suki Richards RN and agree with the findings and plan. Thepatient appears well on exam. We will continue with radiation as planned and monitor weekly. We discussed her subconjunctival hemorrhages and she wants to continue with breath holds. Hanh Marquez M.D., 05/29/2023 SUBJECTIVE REASON FOR VISIT Evaluation for side [...] (Saturday) chemotherapy treatments with Dr. Cortez at [facility]. Treatment Course: 1xLung Plan ID Fractions Dose / Fraction (cGy) Dose Treated (cGy) Dose Planned (cGy) First Treatment Last Treatment Elapsed Days [id number] 200 2200 6000 05/15/2023 05/29/2023 14 Course Summary 05/15/2023 05/29/2023 14 The patient was seen and examined today with Dr. Marquez. Patient reports she would like to discuss with Dr. Marquez the subconjunctival hemorrhages and the use of breath hold with her radiation. She reports that the hemorrhage has improved in her right eye.Patient reports an increase in pain with swallowing. She rates this pain a 5-6 out of 10. She has ongoing mid and left chest discomfort that remains unchanged since starting radiation. She currently isn't taking anything for pain. She reports that she does have Tylenol and Oxycodone if need for pain. She has a prescription for Magic Mouthwash that was transferred to [facility] because [facility] could not fill it. She reports that she hasn't picked up that prescription yet. She takes Zofran for nausea and reports this is helpful. She has noticed and increase in phlegm which has caused her to cough more. She is going to try Mucinex. She reports poor food intake this past weekend because she wasn't feeling well but reports that she has kept up with her fluid intake. She notices a minimal increase in shortness of breath. She denies skin irritation and is applying lotion twice daily to treatment field. PATIENT REPORTED SYMPTOM SCREEN FATIGUE (Scale: 0 = no fatigue; 10 = worst fatigue you can imagine): 4 PAIN (Scale: 0 = no pain; 10 = worst pain you can imagine): 1 OVERALL QUALITY OF LIFE (Scale: 0 = as bad as can be; 10 = as good as can be): 8 OBJECTIVE BP 125/68 (BP Location: Left arm, Patient Position: Sitting, Cuff Size: Regular) Pulse 87 Temp 36.2 ??C (Temporal) Wt 45.4 kg PHYSICAL EXAM General: Alert and oriented in no apparent distress. 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 The patient is tolerating radiation with anticipated side effects. Encouraged patient to trial Tylenol or Oxycodone 30 minutes prior to eating to see if this helps with pain when eating. Reviewed maximum daily dose of Tylenol is 4000 mg per day. Also discussed if she is having troubling with swallowing pills, she could try taking them with pudding or applesauce. Discussed chin tuck method when swallowing pills. Tylenol can be crushed if it is not coated. Patient should follow up with [facility] to see if her Magic Mouthwash prescription has been filled. Patient aware of the lidocaine shortage and that it may take awhile to fill. Offered patient visit with dietitian as she is down 1 kg since last week. She denied need at this time and reported that she would get back on track with her food intake. Discussed high calories food options and patient was provided with samples of High Calorie Boost and Benecalorie. She will continue with radiation as planned. She can contact our care team with any questions or concerns. Signed by: Suki Richards R.N. 05/29/2023 10:56 AM CDT documented in this encounter Miscellaneous Notes * Addendum Note - Hanh Marquez M.D. - 05/29/2023 9:00 AM CDTEncounter addended by: Hanh Marquez M.D. on: 05/30/2023 8:51 AM Actions taken: Clinical Note Signed documented in this encounter Plan of Treatment Upcoming Encounters Date Type Department Care Team (Latest Contact Info) Description 01/07/2024 9:00 AM CDT Clinical Communication Virtual Review in [place], [place] [address] [place] [address] 01/09/2024 9:00 AM CDT Appointment Department of Radiation Oncology in [address] [phone] Hanh Marquez M.D. [address] [place] [phone] Scheduled Orders Name Type Priority Associated Diagnoses Orde r Schedule Management Visit Radiation Oncology Routine Malignant Neoplasm Of Lung Adenocarcinoma Right (HCC) Once for 1 Occurrences starting 05/29/2023 until 05/29/2023 documented as of this encounter Visit Diagnoses Diagnosis Malignant Neoplasm Of Lung Adenocarcinoma Right (HCC) documented in this encounter Care Teams Drum Tender Relationship Specialty Start Date End Date Elsewhere, Pcp PCP - General Family Medicine 05/07/23 documented as of this encounter
--- OUTSIDE RECORDS SUMMARY | 2023-10-30 08:49 | XMS_ITS | Encounter Summary ---
Author Name Unknown Organization [facility] Address [address] [place] [address] Care Team Providers Care Financial Associate Name Role Phone Elsewhere, Pcp Primary Care Provider Unavailabl e Reason for Referral * Outpatient (Routine) - Closed Specialty Diagnoses / Procedures Referred By Vaibhav braden Referred To Contact Social Work Diagnoses Malignant Neoplasm Of Lung Adenocarcinoma Right (HCC) Hanh Marquez M.D. [address] [place] [address] [facility] Region Referral ID Status Reason Start Date Expiration Date Visits Re quested Visits Authorized [id number] Closed 05/16/2023 05/15/2024 1 1 Scheduling Instructions Please schedule video or phone visit as soon as possible, patient and family are having significant coping issues. Reason for Visit * Outpatient (Routine) - Closed Specialty Diagnoses / Procedures Referred By Vaibhav braden Referred To Contact Social Work Diagnoses Malignant Neoplasm Of Lung Adenocarcinoma Right (HCC) Hanh Marquez M.D. [address] [place] [address] [facility] Region Referral ID Status Reason Start Date Expiration Date Visits Re quested Visits Authorized [id number] Closed 05/16/2023 05/15/2024 1 1 Encounter Details Date Type Department Care Team (Latest Contact Info) Description 05/31/2023 6:54 AM CDT - 05/31/2023 2:40 PM CDT Hospital Encounter Department of Radiation Oncology in [place], [place] [address] [facility] [place] [address] Hanh Marquez M.D. [address] [place] [address] Malignant Neoplasm Of Lung Adenocarcinoma Right (HCC) [...] AM CDT Clinical Communication Virtual Review in [place], [place] [address] [place] [address] 01/09/2024 9:00 AM CDT Appointment Department of Radiation Oncology in [place], [place] [address] [place] [address] Hanh Marquez M.D. [address] [place] [address] Scheduled Referrals Name Type Priority Associated Diagnoses Orde r Schedule Social Work - General consult (clinic) Outpatient Referral Routine Malignant Neoplasm Of Lung Adenocarcinoma Right (HCC) Once for 1 Occurrences starting 05/31/2023 until 05/31/2023 documented as of this encounter Visit Diagnoses Diagnosis Malignant Neoplasm Of Lung Adenocarcinoma Right (HCC) documented in this encounter Care Teams Financial Associate Relationship Specialty Start Date End Date Elsewhere, Pcp PCP - General Family Medicine 05/07/23 documented as of this encounter
--- OUTSIDE RECORDS SUMMARY | 2023-10-30 08:49 | XMS_ITS | Encounter Summary ---
Author Name Unknown Organization [facility] Address [address] [place] [address] Care Team Providers Care Estate Planning Counselor Name Role Phone Elsewhere, Pcp Primary Care Provider Unavailabl e Encounter Details Date Type Department Care Team (Latest Contact Info) Description 05/27/2023 3:20 PM CDT - 05/27/2023 11:59 PM CDT Hospital Encounter Department of Radiation Oncology in [place], [place] [address] [place] [phone] Hanh Marquez M.D. [address] [place] [address] Discharge Disposition: Home or Self Care Social [...] AM CDT Clinical Communication Virtual Review in [place], [place] [address] [place] [address] 01/09/2024 9:00 AM CDT Appointment Department of Radiation Oncology in [address] [phone] Hanh Marquez M.D. [address] [place] [phone] documented as of this encounter Visit Diagnoses Not on filedocumented in this encounter Care Teams Estate Planning Counselor Relationship Specialty Start Date End Date Elsewhere, Pcp PCP - General Family Medicine 05/07/23 documented as of this encounter
--- OUTSIDE RECORDS SUMMARY | 2023-10-30 08:49 | XMS_ITS | Encounter Summary ---
Author Name Unknown Organization [facility] Address [address] [place] [address] Care Team Providers Care Rn Home Health Name Role Phone Elsewhere, Pcp Primary Care Provider Unavailabl e Encounter Details Date Type Department Care Team (Latest Contact Info) Description 05/28/2023 2:57 PM CDT - 05/28/2023 3:31 PM CDT Hospital Encounter Department of Radiation Oncology in [place], [place] [address] [place] [phone] Hanh Marquez M.D. [address] [place] [address] Discharge Disposition: Home or Self Care Social [...] AM CDT Clinical Communication Virtual Review in [place], [place] [address] [place] [address] 01/09/2024 9:00 AM CDT Appointment Department of Radiation Oncology in [address] [phone] Hanh Marquez M.D. [address] [place] [phone] documented as of this encounter Visit Diagnoses Not on filedocumented in this encounter Care Teams Rn Home Health Relationship Specialty Start Date End Date Elsewhere, Pcp PCP - General Family Medicine 05/07/23 documented as of this encounter
--- OUTSIDE RECORDS SUMMARY | 2023-10-30 08:49 | XMS_ITS | Encounter Summary ---
Author Name Unknown Organization [facility] Address [address] [place] [address] Care Team Providers Care Ethylbenzene Oxidizer Name Role Phone Elsewhere, Pcp Primary Care Provider Unavailabl e Encounter Details Date Type Department Care Team (Latest Contact Info) Description 05/29/2023 9:15 AM CDT - 05/29/2023 11:59 PM CDT Hospital Encounter Department of Radiation Oncology in [place], [place] [address] [place] [phone] Hanh Marquez M.D. [address] [place] [address] Discharge Disposition: Home or Self Care Social [...] AM CDT Clinical Communication Virtual Review in [place], [place] 200 [place] [address] 01/09/2024 9:00 AM CDT Appointment Department of Radiation Oncology in [address] [phone] Hanh Marquez M.D. [address] [place] [phone] documented as of this encounter Visit Diagnoses Not on filedocumented in this encounter Care Teams Ethylbenzene Oxidizer Relationship Specialty Start Date End Date Elsewhere, Pcp PCP - General Family Medicine 05/07/23 documented as of this encounter
--- OUTSIDE RECORDS SUMMARY | 2023-10-30 08:50 | XMS_ITS | Encounter Summary ---
Author Name Unknown Organization [facility] Address [address] [place] [address] Care Team Providers Care Animal Husbandry Technician Name Role Phone Elsewhere, Pcp Primary Care Provider Unavailabl e Reason for Referral * Outpatient (Routine) - Closed Specialty Diagnoses / Procedures Referred By Vaibhav braden Referred To Contact Social Work Diagnoses Malignant Neoplasm Of Lung Adenocarcinoma Right (HCC) Hanh Marquez M.D. 200 [place] [address] [facility] Region Referral ID Status Reason Start Date Expiration Date Visits Re quested Visits Authorized [id number] Closed 05/16/2023 05/15/2024 1 1 Scheduling Instructions Please schedule video or phone visit as soon as possible, patient and family are having significant coping issues. * Outpatient (Routine) - Authorized Specialty Diagnoses / Procedures Referred By Contac t Referred To Contact Radiation Oncology Hanh Marquez M.D. 200 [place] [address] [facility] Region Referral ID Status Reason Start Date Expiration Date V isits Requested Visits Authorized [id number] Authorized 05/16/2023 05/15/2026 5 5 Reason for Visit * Outpatient (Routine) - Authorized Specialty Diagnoses / Procedures Referred By Contac t Referred To Contact Radiation Oncology Hanh Marquez M.D. [address] [place] [address] [facility] Region Referral ID Status Reason Start Date Expiration Date V isits Requested Visits Authorized [id number] Authorized 05/16/2023 05/15/2026 5 5 Encounter Details Date Type Department Care Team (Latest Contact Info) Description 05/16/2023 8:57 AM CDT - 05/16/2023 11:59 PM CDT Hospital Encounter Department of Radiation Oncology in [place], [place] [address] [place] [phone] Hanh Marquez M.D. [address] [place] [phone] Suki Richards R.N. [address] [place] [phone] Malignant Neoplasm Of Lung Adenocarcinoma Right (HCC) (Primary Dx) Discharge Disposition: Home or Self Care Social [...] NEEDED FOR NAUSEA OR VOMITING* 0 05/02/2023 oxyCODONE-acetaminophen (PERCOCET) 5-325 mg per tablet 0 [...] Progress Notes * Suki Richards R.N. - 05/16/2023 9:00 AM CDT SUBJECTIVE REASON FOR VISIT Nurse visit to discuss anxiety medication, headache and stress regarding treatment HISTORY OF PRESENT ILLNESS Mrs. Racheal eRgalado is a 73 y.o. female with vte-napxg-jrrx left lung cancer. Treatment Course: 1xLung Plan ID Fractions Dose / Fraction (cGy) Dose Treated (cGy) Dose Planned (cGy) First Treatment Last Treatment Elapsed Days [id number] 05/15/2023 05/16/2023 1 Course Summary 05/15/2023 05/16/2023 1 PHYSICAL EXAM General: Alert and oriented. Patient is tearful ASSESSMENT Patient reports that she is feeling unsupported by her throughout her cancer treatment. Shereports that she is struggling and frustrated with his lack of support. This is causing her stress,anxiety and sadness. Patient reports that she does feel safe at home. Patient's daughter, Cassie is in the room during the visit. Patient reports that she would like a prescription for a anxiety medica tion. She also has developed a headache over the past day. PLAN Patient was a agreeable to meeting with a social services manager, a social work consult was placed. A prescription for Ativan 0.5 mg BID was sent to patient's preferred pharmacy. Patient can take Tylenol as needed for headaches. She can contact our care team with any additional concerns. Disposition/Recommendation: referral for services social work and self-care - appropriate at this time, patient encouraged to call back with questions Information/Education: patient/caller able to teach back Patient agreeable to plan of care: yes The following references were used: provider Dr. Marquez documented in this encounter Plan of Treatment Upcoming Encounters Date Type Department Care Team (Latest Contact Info) Description 01/07/2024 9:00 AM CDT Clinical Communication Virtual Review in [place], [place] [address] [place] [address] 01/09/2024 9:00 AM CDT Appointment Department of Radiation Oncology in [place], [place] [address] [place] [address] Hanh Marquez M.D. [address] [place] [address] Scheduled Referrals Name Type Priority Associated Diagnoses Orde r Schedule Radiation Oncology nurse visit (clinic) Outpatient Referral Routine Once for 1 Occurrences starting 05/16/2023 until 05/16/2023 Social Work - General consult (clinic) Outpatient Referral Routine Malignant Neoplasm Of Lung Adenocarcinoma Right (HCC) Expected: 05/17/2023, Expires: 08/16/2024 documented as of this encounter Visit Diagnoses Diagnosis Malignant Neoplasm Of Lung Adenocarcinoma Right (HCC)- Primary documented in this encounter Care Teams Animal Husbandry Technician Relationship Specialty Start Date End Date Elsewhere, Pcp PCP - General Family Medicine 05/07/23 documented as of this encounter
--- OUTSIDE RECORDS SUMMARY | 2023-10-30 08:50 | XMS_ITS | Encounter Summary ---
Author Name Unknown Organization [facility] Address [address] [place] [address] Care Team Providers Care Health Claims Examiner Name Role Phone Elsewhere, Pcp Primary Care Provider Unavailabl e Reason for Visit * Reason Onset Date Comments Eye Problem 05/23/2023 Encounter Details Date Type Department Care Team (Late st Contact Info) Description 05/23/2023 Clinical Communication Department of Radiation Oncology in [place], [place] [address] [place] [phone] Nicole Robertson APRN, C.N.P., D.N.P. [address] [place] [phone] Eye Problem Social History Tobacco Use Types Packs/Day Years [...] - Nicole Robertson APRN, C.N.P., D.N.P. - 05/23/2023 2:55 PM CDT The patient called in today with concerns of a blood shot eye in the right eye. She reports she wasgoing about her morning routine with no concerns, and about mid morning her daughter looked at her and noticed that the lateral aspect of her right sclera was red. The patient reports this has happened at least 6 times, first starting in October 2022. The most recent one being approximately 1 monthago. She reports it typically is in the medial aspect of her right sclera, but it has happened 1 other time in the lateral aspect. She reports going to bed with a mild headache last night, in the right occipital region. She slept well but woke up still with a headache. She took some ibuprofen and found this to be relieving. When her daughter noticed the redness in her eye she did feel some throbbing behind the right eye. As ibuprofen decreased her headache, it also decrease the throbbing. The patient denies any vision changes, thunderclap headache, weakness in arm or leg, drooping face, lightheadedness, or dizziness. She denies being on any blood thinners and does know she can have uncontrolled hypertension at times. She feels this is comparable to previous instances of blood shot eyes without any significant changes. She was evaluated by an driver's license reviewing officer approximately 2-3 months ago and they did not feel she needed glasses, nor did they have any concerns at that time. I encouraged her to reach out to her primary care provider for further evaluation. [facility] Dr. Jaram[facility], who said he would reach out to her. They placed referral ordersfor ophthalmology. I second their recommendations of seeing an driver's license reviewing officer for further evaluation as this is happening frequently. She will reach out to the previous driver's license reviewing officer she was evaluated by us she did like them. I encouraged her to seek emergent evaluation if she develops changes in vision, thunderclap headache, severe headache that is suddenly relieved, weakness in arm or leg, or drooping face. She has a follow-up visit with Medical Oncology tomorrow, May 24, for chemotherapy. I asked that she address this with them as well for any additional recommendations. She verbalized understanding and agreement to the plan. We will continue to monitor. documented in this encounter Plan of Treatment Upcoming Encounters Date Type Department Care Team (Latest Contact Info) Description 01/07/2024 9:00 AM CDT Clinical Communication Virtual Review in [place], [place] 200 [place] [address] 01/09/2024 9:00 AM CDT Appointment Department of Radiation Oncology in [address] [phone] Hanh Marquez M.D. [address] [place] [phone] documented as of this encounter Visit Diagnoses Not on filedocumented in this encounter Care Teams Health Claims Examiner Relationship Specialty Start Date End Date Elsewhere, Pcp PCP - General Family Medicine 05/07/23 documented as of this encounter
--- OUTSIDE RECORDS SUMMARY | 2023-10-30 08:50 | XMS_ITS | Encounter Summary ---
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 [address] [place] [address] [facility] Region Referral ID Status Reason Start Date Expiration Date Visits Re quested Visits Authorized [id number] Closed 05/07/2023 05/06/2024 1 1 Encounter Details Date Type Department Care Team (Latest Contact Info) Description 05/13/2023 12:30 PM CDT - 05/13/2023 12:59 PM CDT Hospital Encounter Department of Radiation Oncology in [place], [place] [address] [place] [phone] Hanh Marquez M.D. [address] [place] [phone] Malena Brito R.N. 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 MAY REPEAT ONCE 0 04/18/2023 HYDROcodone-acetaminophen (NORCO) 5-325 mg per tablet TAKE 1 [...] 40 mg by mouth daily. 0 02/13/2023 losartan (COZAAR) 100 mg tablet Take 100 [...] as of this encounter Progress Notes * Malena Brito R.N. - 05/13/2023 12:30 PM CDT RN Central Line Assessment Central Line: Yes Line Type: IVAD Power Injectable: Yes Power Injectable Identifiers Used: ID Card, Haley Chain, or bracelet Blood Return Verified: Yes documented in this encounter Plan of Treatment Upcoming Encounters Date Type Department Care Team (Latest Contact Info) Description 01/07/2024 9:00 AM CDT Clinical Communication Virtual Review in [address] [phone] 01/09/2024 9:00 AM CDT Appointment Department of Radiation Oncology in [place], [place] [address] [place] [address] Hanh Marquez M.D. 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 Given 05/13/2023 2:04 PM CDT 500 Units iohexoL 300 mg iodine/mL solution 80 mL (OMNIPAQUE) 80 mL, intravenous, Once in imaging, contrast, Starting on Sat05/13/23 at 1336, For 1 dose Given 05/13/2023 1:58 PM CDT 80 mL documented in this encounter Care Teams Poll Watcher Relationship Specialty Start Date End Date Elsewhere, Pcp PCP - General Family Medicine 05/07/23 documented as of this encounter
--- OUTSIDE RECORDS SUMMARY | 2023-10-30 08:50 | XMS_ITS | Encounter Summary ---
Author Name Unknown Organization [facility] Address [address] [place] [address] Care Team Providers Care Tie Tape Machine Operator Name Role Phone Elsewhere, Pcp Primary Care Provider Unavailabl e Encounter Details Date Type Department Care Team (Latest Contact Info) Description 05/20/2023 1:23 PM CDT - 05/20/2023 11:59 PM CDT Hospital Encounter Department of Radiation Oncology in [place], [place] [address] [place] [phone] Hanh Marquez M.D. 200 [place] [address] Discharge Disposition: Home or Self Care Social [...] AM CDT Clinical Communication Virtual Review in [place], [place] 200 [place] [address] 01/09/2024 9:00 AM CDT Appointment Department of Radiation Oncology in [address] [phone] Hanh Marquez M.D. [address] [place] [phone] documented as of this encounter Visit Diagnoses Not on filedocumented in this encounter Care Teams Tie Tape Machine Operator Relationship Specialty Start Date End Date Elsewhere, Pcp PCP - General Family Medicine 05/07/23 documented as of this encounter
--- OUTSIDE RECORDS SUMMARY | 2023-10-30 08:50 | XMS_ITS | Encounter Summary ---
Author Name Unknown Organization [facility] Address [address] [place] [address] Care Team Providers Care Journeyman Painter Name Role Phone Elsewhere, Pcp Primary Care Provider Unavailabl e Encounter Details Date Type Department Care Team (Latest Contact Info) Description 05/21/2023 10:23 AM CDT Hospital Encounter Department of Radiation Oncology in [place], [place] [address] [place] [phone] Hanh Marquez M.D. [address] [place] [address] Discharge Disposition: Home or Self Care Social [...] AM CDT Clinical Communication Virtual Review in [place], [place] [address] [place] [address] 01/09/2024 9:00 AM CDT Appointment Department of Radiation Oncology in [address] [phone] Hanh Marquez M.D. [address] [place] [phone] documented as of this encounter Visit Diagnoses Not on filedocumented in this encounter Care Teams Journeyman Painter Relationship Specialty Start Date End Date Elsewhere, Pcp PCP - General Family Medicine 05/07/23 documented as of this encounter
--- OUTSIDE RECORDS SUMMARY | 2023-10-30 08:50 | XMS_ITS | Encounter Summary ---
Author Name Unknown Organization [facility] Address [address] [place] [address] Care Team Providers Care City Planner Name Role Phone Elsewhere, Pcp Primary Care Provider Unavailabl e Encounter Details Date Type Department Care Team (Latest Contact Info) Description 05/22/2023 7:57 AM CDT - 05/22/2023 11:59 PM CDT Hospital Encounter Department of Radiation Oncology in [place], [place] [address] [place] [phone] Hanh Marquez M.D. 200 [place] [address] Discharge Disposition: Home or Self Care Social [...] AM CDT Clinical Communication Virtual Review in [place], [place] 200 [place] [address] 01/09/2024 9:00 AM CDT Appointment Department of Radiation Oncology in [address] [phone] Hanh Marquez M.D. [address] [place] [phone] documented as of this encounter Visit Diagnoses Not on filedocumented in this encounter Care Teams City Planner Relationship Specialty Start Date End Date Elsewhere, Pcp PCP - General Family Medicine 05/07/23 documented as of this encounter
--- OUTSIDE RECORDS SUMMARY | 2023-10-30 08:50 | XMS_ITS | Encounter Summary ---
Author Name Unknown Organization [facility] Address [address] [place] [address] Care Team Providers Care Hook And Eye Sewing Machine Operator Name Role Phone Elsewhere, Pcp Primary Care Provider Unavailabl e Encounter Details Date Type Department Care Team (Latest Contact Info) Description 05/23/2023 2:37 PM CDT - 05/23/2023 11:59 PM CDT Hospital Encounter Department of Radiation Oncology in [place], [place] [address] [place] [phone] Hanh Marquez M.D. 200 [place] [address] Discharge Disposition: Home or Self Care Social [...] AM CDT Clinical Communication Virtual Review in [place], [place] 200 [place] [address] 01/09/2024 9:00 AM CDT Appointment Department of Radiation Oncology in [address] [phone] Hanh Marquez M.D. [address] [place] [phone] documented as of this encounter Visit Diagnoses Not on filedocumented in this encounter Care Teams Hook And Eye Sewing Machine Operator Relationship Specialty Start Date End Date Elsewhere, Pcp PCP - General Family Medicine 05/07/23 documented as of this encounter
--- OUTSIDE RECORDS SUMMARY | 2023-10-30 08:50 | XMS_ITS | Encounter Summary ---
Author Name Unknown Organization [facility] Address [address] [place] [address] Care Team Providers Care Getter Welder Name Role Phone Elsewhere, Pcp Primary Care Provider Unavailabl e Reason for Referral * Specialty Diagnoses / Procedures Referred By Vaibhav t Referred To Contact Nicole Robertson APRN, C.N.P., D.N.P. [address] [place] [phone] [facility] Referral ID Status Reason Start Date Expiration Date Visits Re quested Visits Authorized Encounter Details Date Type Department Care Team (Latest Contact Info) Description 05/17/2023 12:44 PM CDT - 05/17/2023 11:59 PM CDT Hospital Encounter Department of Radiation Oncology in [place], [place] [address] [place] [phone] Hanh Marquez M.D. 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
--- OUTSIDE RECORDS SUMMARY | 2023-10-30 08:50 | XMS_ITS | Encounter Summary ---
Author Name Unknown Organization [facility] Address [address] [place] [address] Care Team Providers Care Lead Consultant Name Role Phone Elsewhere, Pcp Primary Care Provider Unavailabl e Encounter Details Date Type Department Care Team (Latest Contact Info) Description 05/15/2023 1:58 PM CDT - 05/15/2023 11:59 PM CDT Hospital Encounter Department of Radiation Oncology in [place], [place] [address] [place] [phone] Hanh Marquez M.D. 200 [place] [address] Discharge Disposition: Home or Self Care Social [...] AM CDT Clinical Communication Virtual Review in [place], [place] [address] [place] [address] 01/09/2024 9:00 AM CDT Appointment Department of Radiation Oncology in [place], [place] [address] [place] [phone] Hanh Marquez M.D. [address] [place] [phone] documented as of this encounter Visit Diagnoses Not on filedocumented in this encounter Care Teams Lead Consultant Relationship Specialty Start Date End Date Elsewhere, Pcp PCP - General Family Medicine 05/07/23 documented as of this encounter
--- OUTSIDE RECORDS SUMMARY | 2023-10-30 08:50 | XMS_ITS | Encounter Summary ---
Author Name Unknown Organization [facility] Address [address] [place] [address] Care Team Providers Care Fugitive Investigator Name Role Phone Elsewhere, Pcp Primary Care Provider Unavailabl e Encounter Details Date Type Department Care Team (Latest Contact Info) Description 05/16/2023 8:11 AM CDT - 05/16/2023 8:56 AM CDT Hospital Encounter Department of Radiation Oncology in [place], [place] [address] [place] [phone] Hanh Marquez M.D. [address] [place] [address] Discharge Disposition: Home or Self Care Social [...] Communication Virtual Review in [place], [place] [address] [place] [address] 01/09/2024 9:00 AM CDT Appointment Department of Radiation Oncology in [place], [place] [address] [place] [phone] Hanh Marquez M.D. [address] [place] [phone] documented as of this encounter Visit Diagnoses Not on filedocumented in this encounter Care Teams Fugitive Investigator Relationship Specialty Start Date End Date Elsewhere, Pcp PCP - General Family Medicine 05/07/23 documented as of this encounter
--- OUTSIDE RECORDS SUMMARY | 2023-10-30 08:50 | XMS_ITS | Encounter Summary ---
Author Name Unknown Organization [facility] Address [address] [place] [address] Care Team Providers Care Looper Operator Name Role Phone Elsewhere, Pcp Primary Care Provider Unavailabl e Encounter Details Date Type Department Care Team (Latest Contact Info) Description 05/17/2023 12:44 PM CDT - 05/17/2023 11:59 PM CDT Hospital Encounter Department of Radiation Oncology in [place], [place] [address] [place] [phone] Hanh Marquez M.D. [address] [place] [address] Discharge Disposition: Home or Self Care Social [...] AM CDT Clinical Communication Virtual Review in [place], [place] 200 [place] [address] 01/09/2024 9:00 AM CDT Appointment Department of Radiation Oncology in [address] [phone] Hanh Marquez M.D. [address] [place] [phone] documented as of this encounter Visit Diagnoses Not on filedocumented in this encounter Care Teams Looper Operator Relationship Specialty Start Date End Date Elsewhere, Pcp PCP - General Family Medicine 05/07/23 documented as of this encounter
--- OUTSIDE RECORDS SUMMARY | 2023-10-30 08:50 | XMS_ITS | Encounter Summary ---
Author Name Unknown Organization [facility] Address [address] [place] [address] Care Team Providers Care Felt Hat Pouncing Operator Hand Name Role Phone Elsewhere, Pcp Primary Care Provider Unavailabl e Encounter Details Date Type Department Care Team (Latest Contact Info) Description 05/21/2023 10:25 AM CDT - 05/21/2023 3:30 PM CDT Hospital Encounter Department of Radiation Oncology in [place], [place] [address] [place] [address] Hanh Marquez M.D. [address] [place] [phone] Suki Richards R.N. [address] [place] [phone] Malignant Neoplasm Of Lung Adenocarcinoma Right (HCC) [...] this encounter Progress Notes * Suki Richards RMarlenaN. - 05/21/2023 11:30 AM CDT Patient was educated on side effects of radiation therapy. Their questions were answered to the best of my ability. The patient was encouraged to contact the team at any point, with questions or concerns. documented in this encounter Plan of Treatment Upcoming Encounters Date Type Department Care Team (Latest Contact Info) Description 01/07/2024 9:00 AM CDT Clinical Communication Virtual Review in [place], [place] 200 [place] [address] 01/09/2024 9:00 AM CDT Appointment Department of Radiation Oncology in [address] [phone] Hanh Marquez M.D. [address] [place] [address] documented as of this encounter Visit Diagnoses Diagnosis Malignant Neoplasm Of Lung Adenocarcinoma Right (HCC)- Primary documented in this encounter Care Teams Felt Hat Pouncing Operator Hand Relationship Specialty Start Date End Date Elsewhere, Pcp PCP - General Family Medicine 05/07/23 documented as of this encounter
--- OUTSIDE RECORDS SUMMARY | 2023-10-30 08:50 | XMS_ITS | Encounter Summary ---
Author Name Unknown Organization [facility] Address 200 [place] [address] Care Team Providers Care Rn Labor And Delivery Name Role Phone Elsewhere, Pcp Primary Care Provider Unavailabl e Reason for Referral * Radiation Therapy (Routine) - Authorized Specialty Diagnoses / Procedures Referred By Vaibhav braden Referred To Contact Diagnoses Malignant Neoplasm Of Lung Adenocarcinoma Right (HCC) Procedures Management Visit Hanh Marquez M.D. 200 [place] [address] [facility] Region Referral ID Status Reason Start Date Expiration Date V isits Requested Visits Authorized [id number] Authorized 05/15/2023 05/14/2024 10 10 Reason for Visit * Radiation Therapy (Routine) - Authorized Specialty Diagnoses / Procedures Referred By Vaibhav braden Referred To Contact Diagnoses Malignant Neoplasm Of Lung Adenocarcinoma Right (HCC) Procedures Management Visit Hanh Marquez M.D. 200 [place] [address] [facility] Region Referral ID Status Reason Start Date Expiration Date V isits Requested Visits Authorized [id number] Authorized 05/15/2023 05/14/2024 10 10 Encounter Details Date Type Department Care Team (Latest Contact Info) Description 05/21/2023 10:24 AM CDT Hospital Encounter Department of Radiation Oncology in [place], [place] [address] [place] [phone] Hanh Marquez M.D. [address] [place] [address] Malignant Neoplasm Of Lung Adenocarcinoma Right (HCC) [...] Sign Reading Time Taken Comments Blood Pressure 167/83 05/21/2023 10:56 AM CDT Pulse 70 05/21/2023 10:56 AM CDT Temperature 36 ??C (96.8 ??F) 05/21/2023 10:56 AM CDT Respiratory Rate - - Oxygen Saturation - - Inhaled Oxygen Concentration - - Weight 46.4 kg (102 lb 4.8 oz) 05/21/2023 10:56 AM CDT Height - - Body Mass [...] Progress Notes * Hanh Marquez M.D. - 05/21/2023 11:15 AM CDT SUBJECTIVE REASON FOR VISIT Evaluation [...] (Saturday) chemotherapy treatments with Dr. Cortez at [facility]. Treatment Course: 1xLung Plan ID Fractions Dose / Fraction (cGy) Dose Treated (cGy) Dose Planned (cGy) First Treatment Last Treatment Elapsed Days [id number] 200 1000 6000 05/15/2023 05/21/2023 6 Course Summary 05/15/2023 05/21/2023 6 The patient was seen and examined today with Dr. Marquez. The patient reports that she is feeling sad as her brother this past week from lung cancer. She reports feeling emotional with everything that is going on. She has occasionally been taking the Ativan she was prescribed last week. She take anti nausea medication throughout the day to help was nausea related to motion and from chemotherapy. She reports mild discomfort with swallowing. The pain in her lower left and mid chest remains unchanged. She is currently not taking anything for discomfort. She reports no change to chronic cough. She is needing a refill on her Zofran prescription. PATIENT REPORTED SYMPTOM SCREEN FATIGUE (Scale: 0 = no fatigue; 10 = worst fatigue you can imagine): 4 PAIN (Scale: 0 = no pain; 10 = worst pain you can imagine): 1 OVERALL QUALITY OF LIFE (Scale: 0 = as bad as can be; 10 = as good as can be): 8 OBJECTIVE BP (!) 167/83 (BP Location: Right arm, Patient Position: Sitting, Cuff Size: Regular) Pulse 70 Temp 36 ??C (Temporal) Wt 46.4 kg PHYSICAL EXAM General: Alert and oriented in no apparent distress. 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 The patient is tolerating radiation treatment well overall. She can take Tylenol if needed for discomfort. Zofran prescription refilled and sent to patient's preferred pharmacy. She will continue with radiation treatment as planned. She will contact our care team with any questions or concerns. Signed by: Suki Richards R.N. 05/21/2023 2:09 PM CDT ATTESTATION FOR MANAGEMENT VISIT I saw and evaluated the patient and participated in the galvan portions of the service as noted above.I reviewed the documentation of Marlena Richards RN and agree with the findings and plan. Thepatient appears well on exam. We will continue with radiation as planned and monitor weekly. I gaveher my condolences on the passing of her brother. Services will be in [place] with his children and a memorial will be in a month or so. Hanh Marquez M.D., 05/21/2023 documented in this encounter Plan of Treatment Upcoming Encounters Date Type Department Care Team (Latest Contact Info) Description 01/07/2024 9:00 AM CDT Clinical Communication Virtual Review in [place], [place] 200 [place] [address] 01/09/2024 9:00 AM CDT Appointment Department of Radiation Oncology in [place] [id number] [place] [phone] Hanh Marquez M.D. [address] [place] [phone] Scheduled Orders Name Type Priority Associated Diagnoses Orde r Schedule Management Visit Radiation Oncology Routine Malignant Neoplasm Of Lung Adenocarcinoma Right (HCC) Once for 1 Occurrences starting 05/21/2023 until 05/21/2023 documented as of this encounter Visit Diagnoses Diagnosis Malignant Neoplasm Of Lung Adenocarcinoma Right (HCC) documented in this encounter Care Teams Rn Labor And Delivery Relationship Specialty Start Date End Date Elsewhere, Pcp PCP - General Family Medicine 05/07/23 documented as of this encounter
--- OUTSIDE RECORDS SUMMARY | 2023-10-30 08:51 | XMS_ITS | Encounter Summary ---
Author Name Unknown Organization [facility] Address [address] [place] [address] Care Team Providers Care Geophysical Data Technician Name Role Phone Unavailable Primary Care Provider Unavailabl e Reason for Visit * Reason Onset Date Comments Triage 05/01/2023 Encounter Details Date Type Department Care Team (Late st Contact Info) Description 05/01/2023 Clinical Communication Department of Oncology in [place], [place] [address] [place] [phone] Lilly Bruner APRN C.N.P., M.S.N. [address] [place] [phone] Triage Social History Tobacco Use Types Packs/Day Years Used Date Smoking Tobacco: Every Day Nutrition Answer Date Recorded Nutrition: EVOO Fat [...] encounter Miscellaneous Notes * Telephone Encounter - Lilly Bruner APRN, C.N.P., M.S.N. - 05/06/2023 9:42 AM CDT Per new reg team patient has questions about chemotherapy, approved for video visit. Marti * Telephone Encounter - Lilly Bruner APRN, C.N.P., M.S.N. - 05/01/2023 11:30 AM CDT 04/12/2023 bronchoscopy: Left lower lobe nodule positive adenocarcinoma, station seven positive, station 4R positive, station 4L positive, station 11 L positive PD-L1 0% 04/19/2023 Negative MR brain 04/26/[address] Cortez at [facility], recommended chemo radiation followed by maintenance immunotherapy 04/29/2023 CT chest 1.8 cm left lower lobe lesion, pneumonia documented in this encounter Plan of Treatment Upcoming Encounters Date Type Department Care Team (Latest Contact Info) Description 01/07/2024 9:00 AM CDT Clinical Communication Virtual Review in [place], [place] 200 [place] [address] 01/09/2024 9:00 AM CDT Appointment Department of Radiation Oncology in [place] [address] [place] [address] Hanh Marquez M.D. [address] [place] [address] documented as of this encounter Visit Diagnoses Not on filedocumented in this encounter
--- OUTSIDE RECORDS SUMMARY | 2023-10-30 08:51 | XMS_ITS | Encounter Summary ---
Author Name Unknown Organization [facility] [place] [facility] Address [address] [place] [address] Care Team Providers Care Airframe And Power Plant Mechanic Name Role Phone Elsewhere, Pcp Primary Care Provider Unavailabl e Reason for Visit * Reason Onset Date Comments Pre-visit Testing Orders 05/06/2023 New Reg Encounter Details Date Type Department Care Team (Latest Contact Info) Description 05/06/2023 Clinical Communication Department of Oncology in [place], [place] [address] [place] [phone] Lilly Bruner APRN, C.N.P., M.S.N. [address] [place] [phone] Pre-visit Testing Orders (New Reg) Social History Tobacco Use Types Packs/Day Years [...] AM CDT Clinical Communication Virtual Review in [place], [place] 200 [place] [address] 01/09/2024 9:00 AM CDT Appointment Department of Radiation Oncology in [place] [id number] [place] [address] Hanh Marquez M.D. 200 [place] [address] documented as of this encounter Visit Diagnoses Not on filedocumented in this encounter Care Teams Airframe And Power Plant Mechanic Relationship Specialty Start Date End Date Elsewhere, Pcp PCP - General Family Medicine 05/07/23 documented as of this encounter
--- OUTSIDE RECORDS SUMMARY | 2023-10-30 08:51 | XMS_ITS | Encounter Summary ---
Author Name Unknown Organization [facility] Address [address] [place] [address] Care Team Providers Care Grading Machine Feeder Name Role Phone Elsewhere, Pcp Primary Care Provider Unavailabl e Reason for Visit * Appointment Request (Urgent) - Closed Specialty Diagnoses / Procedures Referred By Contac t Referred To Contact Oncology Diagnoses Malignant Neoplasm Of Lung Adenocarcinoma Left (HCC) Willam Jaramillo M.D. [address] [place] [address] Referral ID Status Reason Start Date Expiration Date Visits Re quested Visits Authorized [id number] Closed 04/24/2023 04/23/2024 1 1 Encounter Details Date Type Department Care Team (Latest Contact Info) Description 05/08/2023 10:00 AM CDT Telemedicine Department of Oncology in [place], [place] [address] [place] [phone] Palmer Gomes M.B.B.S. [address] [place] [address] Malignant Neoplasm Of Lung Adenocarcinoma Right (HCC) [...] on file documented as of this encounter Consult Notes * Chaya Killian M.B.B.S. - 05/08/2023 10:00 AM CDT SUBJECTIVE CHIEF COMPLAINT/PUPROSE OF VISIT: Patient seeking second opinion regarding new diagnosis of adenocarcinoma of the lung PRIMARY ONCOLOGIST: Palmer Gomes M.B.B.S. PRIMARY ONCOLOGY FELLOW: Esther Whit[place] HISTORY OF PRESENT ILLNESS: Ms. Regalado is a .73 y.o. female with a past medical history significant for hypertension, colonic bleeding (?diverticulosis), CAD, cerebral aneurysm who presented to the ER with abdominal pain and hypertension for which she had imaging of the chest done which revealed a left lower lung nodule concerning for a malignancy. The patient complains of a cough since December and it was initially thought to be a COPD flare. It is associated with worsening SOB. She now endorses hemoptysis which is dark red in color with clots, it was worse after then bronchoscopy but has improved now and does happen once a day and is moderate in amount. The patient does not endorse weight loss and does have a good appetite. The patient is scheduled to start concurrent chemoradiation with Dr. Cortez from [facility] soon. The rest of the oncologic history is highlighted below: Cancer Staging 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) Staging form: Lung, AJCC 8th Edition - Clinical stage from 04/12/2023: Stage IIIB (cT2, cN3, cM0) Oncology History 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) 03/02/2023 Other Patient presented to emergency room in [place], [place] for elevated blood pressure at home, [...] by Dr. Tobin Ardon, thoracic surgery at [facility]. Recommend referral to Medical Oncology. Did not feel patient was a surgical candidate given the higher stage. 04/19/2023 Critical Imaging MRI brain demonstrated no evidence of intracranial metastases 04/26/[address] Zahira Cortez, [facility]. Recommended concurrent chemoradiation with weekly Carbo/Taxol. 05/08/2023 Other Video visit with Medical Oncology at [facility] scheduled 05/20/2023 - Radiation Therapy Radiation Therapy Treatment Details (Noted on 05/07/2023) Site: Left Lung Technique: No technique specified Goal: Curative Planned Treatment Start Date: 05/20/2023 Current Therapy: concurrent chemoradiation Current Disease Status: Not evaluated Intent of Therapy: Curative Intent to Change Therapy: No ROS: Pertinent items are noted in HPI; all other review of systems were negative. CURRENT MEDICATIONS: Reviewed and updated in the EMR. ALLERGIES: Reviewed and updated in the EMR. 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) Anxiety Chronic Obstructive Pulmonary Disease (HCC) Coronary Artery Disease NOS Hemorrhage Gastrointestinal Hypertension Essential Primary Pain Low Back Chronic Tachycardia Supraventricular (HCC) SURGICAL HISTORY: Past Surgical History: Procedure Laterality Date APPENDECTOMY BACK SURGERY CARPAL TUNNEL RELEASE CHOLECYSTECTOMY HERNIA REPAIR HYSTERECTOMY KNEE SURGERY OVARIAN CYST REMOVAL SOCIAL HISTORY: Social History Socioeconomic History Marital status: Spouse name: Not on file Number of children: 6 Years of education: Not on file Highest education level: Not on file Occupational History Not on file Tobacco Use Smoking status: Former Packs/day: 1.00 Types: Cigarettes Quit date: 2012 Years since quittin.5 Passive exposure: Current () Smokeless tobacco: Never Vaping Use Vaping Use: never used Substance and Sexual Activity Alcohol use: Yes Drug use: Not on file Sexual activity: Not on file Other Topics Concern Not on file Social History Narrative Not on file Social Determinants of Health Financial Resource Strain: Not on file Food Insecurity: Not on file Transportation Needs: Not on file Physical Activity: Not on file Intimate Partner Violence: Not on file Housing Stability: Not on file FAMILY HISTORY: Family History Problem Relation Age of Onset Stomach cancer Father Esophageal cancer Father Lung cancer Brother Lung cancer Uncle Lung cancer Aunt Breast cancer Aunt OBJECTIVE VITAL SIGNS: There were no vitals filed for this visit. No data recorded PHYSICAL EXAM:This was a telehealth visit DIAGNOSTICS: I reviewed the imaging studies and agree with the interpretation as recorded. I reviewed the pertinent laboratory and diagnostic data. Assessment ASSESSMENT/PLAN: This is a 73 year old female with a newly diagnosed Stage IIIB adenocarcinoma of the lung here for a second opinion #[id number] adenocarcinoma of the lung The patient is here seeking a 2nd opinion regarding the management of newly diagnosed stage IIIB adenocarcinoma of the lung. I explained to her the diagnosis and the current standard of care. We discussed the [place] trial and discuss that concurrent chemotherapy and radiation for followed by maintenance durvalumab would be the best option for her pain. She did mention that her oncologist in [place] also wishes to do the same and plans to start very soon. We encouraged the patient to proceed with treatment and agreed with her current staging and her treatment plan. She did have molecular profiling of her tissue also done which did not show any targetable mutations and we discussed these re sults with her as well. We also discussed surveillance imaging once she completes the 1 year maintenance durvalumab. We wish the patient and her family and the very best. She will continue to receivetreatment and follow-up with her local oncologist. PATIENT EDUCATION Ready to learn, no apparent learning barriers were identified; learning preferences include listening. Explained diagnosis and treatment plan; patient expressed understanding of the content. ADMINISTRATIVE BILLING I personally spent over half of a total of [60] minutes face to face and non face to face. Patient discussed with faculty Shon Tapia. PGY- 7, Thoracic Oncology Fellow [place], [place] Pager: [phone] * Palmer Gomes M.B.B.S. - 05/08/2023 10:00 AM CDT This is a supervisory note. Ms. Regalado was seen in Lung Red Team. Please refer to the excellent note of CHLOE Whitley for a full history, physical, review of systems. I have reviewed the note and confirmed findings and recommendations. HISTORY OF PRESENT ILLNESS: Ms. Regalado is a 73 y.o. female with the following oncologic history: Oncology History 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) 03/02/2023 Other Patient presented to emergency room in [place], [place] for elevated blood pressure at home, [...] by Dr. Tobin Ardon, thoracic surgery at [facility]. Recommend referral to Medical Oncology. Did not feel patient was a surgical candidate given the higher stage. 04/19/2023 Critical Imaging MRI brain demonstrated no evidence of intracranial metastases 04/26/[address] Zahira Cortez, [facility]. Recommended concurrent chemoradiation with weekly Carbo/Taxol. 05/08/2023 Other Video visit with Medical Oncology at [place] in [place] scheduled 05/20/2023 - Radiation Therapy Radiation Therapy Treatment Details (Noted on 05/07/2023) Site: Left Lung Technique: No technique specified Goal: Curative Planned Treatment Start Date: 05/20/2023 VITAL SIGNS: There were no vitals filed for this visit. DIAGNOSTICS: I reviewed the imaging studies and agree with the interpretation as recorded. I reviewed the pertinent laboratory and diagnostic data. ASSESSMENT/PLAN: #1 Malignant Neoplasm Of Lung Adenocarcinoma Right (HCC) It was a pleasure to meet Mrs. Regalado and her family, virtually today. We reviewed her diagnosis of locally advanced/unresectable [id number] lung cancer and reviewed her pathology of adenocarcinoma with 0% PDL1 and KRAS mutation in detail. I agree with the treatment plan recommended by her local oncology team of concurrent chemoradiation followed by 1 year of adjuvant durvalumab. I emphasized on the need for repeat scans every 3 months. Both patient and her family are believe that a plan is underway and she is scheduled to start treatment next week. PATIENT EDUCATION Ready to learn, no apparent learning barriers were identified; learning preferences include listening. Explained diagnosis and treatment plan; patient expressed understanding of the content. Discussed with the patient we work together as a care team of physicians, nurse practitioners/physician assistants, nurses and other academic support director that specialize in this cancer. Also, reviewed the importanceof maintaining ongoing care with local oncology team and primary care physician. documented in this encounter Plan of Treatment Upcoming Encounters Date Type Department Care Team (Latest Contact Info) Description 01/07/2024 9:00 AM CDT Clinical Communication Virtual Review in [place], [place] [address] [place] [address] 01/09/2024 9:00 AM CDT Appointment Department of Radiation Oncology in [place], [place] [address] [place] [address] Hanh Marquez M.D. [address] [place] [phone] documented as of this encounter Visit Diagnoses Diagnosis Malignant Neoplasm Of Lung Adenocarcinoma Right (HCC)- Primary documented in this encounter Care Teams Grading Machine Feeder Relationship Specialty Start Date End Date Elsewhere, Pcp PCP - General Family Medicine 05/07/23 documented as of this encounter
--- OUTSIDE RECORDS SUMMARY | 2023-10-30 08:51 | XMS_ITS | Encounter Summary ---
Author Name Unknown Organization [facility] Address [address] [place] [address] Care Team Providers Care Creative Services Intern Name Role Phone Elsewhere, Pcp Primary Care Provider Unavailabl e Reason for Visit * Reason Onset Date Comments Pre-visit Intake 05/07/2023 Encounter Details Date Type Department Care Team (Latest Contact Info) Description 05/07/2023 1:45 PM CDT Clinical Communication Virtual Review in [place], [place] [address] [place] [address] Pre-visit Intake Social History Tobacco Use Types Packs/Day Years Used Date Smoking Tobacco: Former Cigarettes 1 Q uit: 2013 Passive Smoke Exposure: Current Smokeless Tobacco: Never Tobacco Cessation:Counseling Given: Yes Passive Exposure Comments: Alcohol Use Standard Drinks/Week [...] AM CDT Clinical Communication Virtual Review in [place], [place] [address] [place] [address] 01/09/2024 9:00 AM CDT Appointment Department of Radiation Oncology in [place], [place] [address] [place] [phone] Hanh Marquez M.D. 200 [place] [address] documented as of this encounter Visit Diagnoses Not on filedocumented in this encounter Care Teams Creative Services Intern Relationship Specialty Start Date End Date Elsewhere, Pcp PCP - General Family Medicine 05/07/23 documented as of this encounter
--- OUTSIDE RECORDS SUMMARY | 2023-10-30 08:51 | XMS_ITS | Encounter Summary ---
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 [address] [place] [address] [facility] Region Referral ID Status Reason Start Date Expiration Date Visits Re quested Visits Authorized [id number] Closed 05/07/2023 05/06/2024 1 1 Encounter Details Date Type Department Care Team (Latest Contact Info) Description 05/13/2023 1:00 PM CDT - 05/13/2023 5:04 PM CDT Hospital Encounter Department of Radiation Oncology in [place] [address] [place] [phone] Hanh Marquez M.D. 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 Authorized by: Hanh Marquez M.D. Simulation was performed under physician supervision based on physician order in preparation for radiation therapy. Physician was immediately available to provide assistance and direction throughout the procedure. Written consent for treatment was completed or confirmed. The patient was appropriately identified and placed in the treatment position using the necessary immobilization to ensure a reproducible treatment position. Reference wadsworth were placed to facilitate marking of isocenter. Area scanned:Chest Contrast used for the simulation procedure: IV Patient position:head first supine and arms up Custom immobilization: Vac-marvin Motion management: 4D CT scan and Breath hold scan Bolus: No CT guidance: Following positioning of the patient, a series of slices was obtained to be utilized in treatment planning. CT images were transferred to the [employer] treatment planning system, after a reference isocenter was determined and marked. Segmentation and treatment planning will take place prior to treatment delivery. Patient set up and imaging was appropriate and completed without incident. As400 Analyst use:No Associated attestation - Hanh Marquez M.D. - 05/13/2023 5:03 PM CDT I was present during all critical and galvan portions of the procedure(s) and immediately available [place] [facility] the entire duration. See note for details. documented in this encounter Plan of Treatment Upcoming Encounters Date Type Department Care Team (Latest Contact Info) Description 01/07/2024 9:00 AM CDT Clinical Communication Virtual Review in [address] [address] 01/09/2024 9:00 AM CDT Appointment Department of Radiation Oncology in [address] [phone] Hanh Marquez M.D. 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 05/13/2023 ??1:44 PM Initial Rad Onc Treatment Planning CT Simulation Performed by: Hanh Marquez M.D. Authorized by: Hanh Marquez M.D. ?? Hanh Marquez M.D. 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
--- OUTSIDE RECORDS SUMMARY | 2023-10-30 08:51 | XMS_ITS | Encounter Summary ---
Author Name Unknown Organization [facility] Address [address] [place] [address] Care Team Providers Care Planishing Hammer Operator Name Role Phone Unavailable Primary Care Provider Unavailabl e Reason for Visit * Reason Onset Date Comments Appt Request 04/25/2023 New Reg Encounter Details Date Type Department Care Team (Latest Contact Info) Description 04/25/2023 Clinical Communication Department of Oncology in [place], [place] [address] [place] [phone] Prescheduling, Provider Appt Request (New Reg) Social History Tobacco Use Types [...] AM CDT Clinical Communication Virtual Review in [place], [place] [address] [place] [address] 01/09/2024 9:00 AM CDT Appointment Department of Radiation Oncology in [place] [id number] [place] [phone] Hanh Marquez M.D. [address] [place] [phone] documented as of this encounter Visit Diagnoses Not on filedocumented in this encounter
--- OUTSIDE RECORDS SUMMARY | 2023-10-30 08:51 | XMS_ITS | Encounter Summary ---
Author Name Unknown Organization [facility] Address [address] [place] [address] Care Team Providers Care Hogshead Builder Name Role Phone Elsewhere, Pcp Primary Care Provider Unavailabl e Reason for Referral * Specialty Diagnoses / Procedures Referred By Nicoleac t Referred To Contact Nicole Robertson APRN, C.N.P., D.N.P. 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 [address] [place] [address] [facility] Region Referral ID Status Reason Start Date Expiration Date Visits Re quested Visits Authorized [id number] Closed 05/07/2023 05/06/2024 1 1 Encounter Details Date Type Department Care Team (Late st Contact Info) Description 05/07/2023 Orders Only Department of Radiation Oncology in [place], [place] [address] [place] [phone] Nicole Robertson APRN, C.N.P., D.N.P. [address] [place] [phone] Malignant Neoplasm Of Lung Lower Lobe Or [...] AM CDT Clinical Communication Virtual Review in [place], [place] [address] [place] [address] 01/09/2024 9:00 AM CDT Appointment Department of Radiation Oncology in [place], [place] [address] [place] [phone] Hanh Marquez M.D. 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
--- OUTSIDE RECORDS SUMMARY | 2023-10-30 08:51 | XMS_ITS | Encounter Summary ---
Author Name Unknown Organization [facility] Address [address] [place] [address] Care Team Providers Care Drill Hand Name Role Phone Elsewhere, Pcp Primary Care Provider Unavailabl e Reason for Visit * Appointment Request (Routine) - Closed Specialty Diagnoses / Procedures Referred By Contac t Referred To Contact Radiation Oncology Zahira Cortez M.D. [address] [facility] [address] [address] [place] [address] Referral ID Status Reason Start Date Expiration Date Visits Re quested Visits Authorized [id number] Closed 04/30/2023 04/29/2024 1 1 Encounter Details Date Type Department Care Team (Latest Contact Info) Description 05/13/2023 10:50 AM CDT - 05/13/2023 12:29 PM CDT Hospital Encounter Department of Radiation Oncology in [place], [place] [address] [place] [phone] Hanh Marquez M.D. [address] [place] [address] Malignant Neoplasm Of Lung Lower Lobe Or [...] Sign Reading Time Taken Comments Blood Pressure 148/69 05/13/2023 10:53 AM CDT Pulse 72 05/13/2023 10:53 AM CDT Temperature 36.6 ??C (97.9 ??F) 05/13/2023 10:53 AM C DT Respiratory Rate - - Oxygen Saturation - - Inhaled Oxygen Concentration - - Weight 46.3 kg (102 lb 1.6 oz) 05/13/2023 10:53 AM CDT Height - - Body Mass [...] as of this encounter Consult Notes * Nicole Robertson APRN, C.N.P., D.N.P. - 05/13/2023 11:00 AM CDT SUBJECTIVE REQUESTING PROVIDER Zahira Cortez M.D. REASON FOR CONSULT 1. 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 HISTORY OF PRESENT ILLNESS Mrs. Racheal Regalado is a 73 y.o. female former smoker with umw-ajqzk-isgi left lung cancer, whopresents today for an opinion regarding the role of radiation therapy in the management of the patient's disease. 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 Tobin Ardon, thoracic surgery at [facility]. Recommend referral to Medical Oncology. Did not feel patient was a surgical candidate given the higher stage. 04/19/2023 Critical Imaging MRI brain demonstrated no evidence of intracranial metastases 04/26/[address] Zahira Cortez, [facility]. Recommended concurrent chemoradiation with weekly Carbo/Taxol. 05/08/2023 Other Video visit with Medical Oncology at [place] in [place]. Agreed with the diagnosis and staging of jeo-vvdyj-faoh lung cancer as first described by Dr. Cortez. Agreed with the recommendations of concurrent chemoradiation followed by maintenance durvalumab for 1 year. Patient will proceed with local treatment. 05/20/2023 - Radiation Therapy Radiation Therapy Treatment Details (Noted on 05/07/2023) Site: Left Lung Technique: No technique specified Goal: Curative Planned Treatment Start Date: 05/20/2023 INTERVAL HISTORY The patient was seen and examined today with Dr. Marquez. The patient reports feeling well overall. She appreciates moderate fatigue but tries to stay activeevery day with walking. She has been experiencing some difficulty with swallowing over the last fewmonths. She mostly drinks smoothies now. She denies any pain with swallowing. She has a longstanding history of shortness of breath secondary to her COPD, but this has become slightly more severe andmore frequent over the last few months. Prior to the bronchoscopy and biopsies she denied any cough. Following the bronchoscopy and biopsy she has been having mild episodes of hemoptysis with progressive improvement. Over the last few months she has been experiencing chest pain in the [facility] that radiates to the left side of the ribcage, rating it a 1-2/10 on average. She reports this mostly happens at night when she goes to lay down. She does not take anything for the pain and it eventually resolved on its own. She also notices chest pressure at night when she is attempting to lay down, as well. She has started to sleep with 3 pillows underneath her head/back. She feels like javier zambrano is someone sitting on her chest. The patient denies a history of prior radiation therapy, connective tissue disorders, or inflammatory bowel disease. The patient denies any implanted devices. HerECOG performance status is 0. REVIEW OF SYSTEMS Review of systems was negative except as documented above. 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) Anxiety Chronic Obstructive Pulmonary Disease (HCC) Coronary Artery Disease NOS Diverticulitis Hemorrhage Gastrointestinal Hypertension Essential Primary Pain Low Back Chronic Tachycardia Supraventricular (HCC) PAST SURGICAL HISTORY Past Surgical History: Procedure Laterality Date APPENDECTOMY BACK SURGERY CARPAL TUNNEL RELEASE CHOLECYSTECTOMY COLOSTOMY COLOSTOMY CLOSURE HERNIA REPAIR HYSTERECTOMY KNEE SURGERY OVARIAN CYST REMOVAL FAMILY HISTORY Family History Problem Relation Age of Onset Stomach cancer Father Esophageal cancer Father Lung cancer Brother Lung cancer Uncle Lung cancer Aunt Bone cancer Aunt Melanoma Aunt Breast cancer Aunt SOCIAL HISTORY Social History Socioeconomic History Marital status: Spouse name: Driss Number of children: 6 Tobacco Use Smoking status: Former Packs/day: 1.00 Types: Cigarettes Quit date: 2012 Years since quittin.5 Passive exposure: Current () Smokeless tobacco: Never Vaping Use Vaping Use: never used Substance and Sexual Activity Alcohol use: Yes OBJECTIVE BP 148/69 (BP Location: Right arm, Patient Position: Sitting, Cuff Size: Regular) Pulse 72 Temp36.6 ??C (Temporal) Wt 46.3 kg PHYSICAL EXAM GENERAL: Alert and oriented in no apparent distress. Neck: Supple. Lymph: No palpable cervical, supraclavicular, infraclavicular, or axillary adenopathy. Lungs: Clear to auscultation bilaterally. Heart: Regular rate and rhythm. Normal S1 and S2. 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 I had a discussion with them regarding her lung cancer diagnosis including the staging. We also had a detailed discussion regarding the risks, benefits, and alternatives of radiotherapy in this setting. We discussed the recommendation for radiation treatment to the left lung and surrounding lymph nodes in 30 fractions with concurrent chemotherapy delivered at [facility] under the care of Dr. Cortez, which began on May 10. I discussed the logistics as well as the acute and chronic side effects of radiotherapy. The acute side effects are common and may include, but not limited to, fatigue, shortness of breath, skin irritation, cough, pain and/or difficulty with swallowing with a rare need for hospitalization. A delayed side effect could include radiation pneumonitis. Long-term side effects can be rare and may include, but not limited to, heart damage (with left-sided treatment), ulceration or narrowing of the esophagus, broken rib, spinal cord damage, chronic shortness of breath, chronic chest wall pain, or secondary malignancy. The patient was provided with a written summary of recommendations. Her questions were answered to her verbalized satisfaction. After discussion, the patient verbally stated that she would like to proceed with treatment. She will undergo CT simulation today. We will plan to initiate radiation therapy on May 15. Patient seen in collaboration with Dr. Marquez, please review her attestation for additional information. The patient was provided with our contact information. She was asked to contact us sooner with questions or concerns. She verbally expressed her understanding of the plan. EDUCATION Ready to learn, no apparent learning barriers were identified; learning preferences include listening. Explained diagnosis and treatment plan; patient expressed understanding of the content. CONSENT Discussed the risks, benefits, alternatives, and the necessity of other members of the healthcare team participating in the procedure. All questions answered and consent given. PRIMARY PROVIDER Willam Jaramillo MD I personally spent 60 minutes in care of the patient today. Time includes both non face to face andface to face patient care. Signed by: Nicole Robertson APRN, C.N.P., D.N.P. 05/13/2023 12:45 PM CDT [facility] [address] [place] [address] Associated attestation - Hanh Marquez M.D. - 05/13/2023 5:00 PM CDT RADIATION ONCOLOGY CONSULT I saw and evaluated the patient and participated in the galvan portions of the service. I reviewed thedocumentation of Ms. Nicole Robertson APRN and agree with the findings and plan. Please see Marlena Miriam's detailed note for the patient's initial presentation and work-up. Briefly, Mrs. Regalado is a very pleasant 73 year old remote former smoker who has a newly diagnosed Stage IIIB NSCLC (adenocarcinoma) involving her left lower lung and stations 4R, 4L, 10L and 7. She is still having hemoptysis and some heartburn since the bronchoscopy. She thinks they are improving. She has not lost any weight. I have reviewed her imaging, operative and pathology reports. On exam, she appears well. We discussed the findings above and below in this note with patient and her and daughter. We discussed her treatment alternatives. I agree with concurrent chemotherapy and radiation followed by immunotherapy. She has already started her chemotherapy, so we will try to get things started this week. We discussed the rationale, risks, side effects and goals of radiation therapy. We discussedthe acute as well as intermission coordinator risks, including, but not limited to fatigue, esophagitis, rib fracture, chest wall pain, radiation pneumonitis (10- 15% risk with a 1% mortality), and cardiac risks. They understood and their questions were answered. She wished to proceed with treatment. We tentatively plan on delivering 6000 cGy in 30 fractions starting this coming Saturday or . My thanks to Clint Heaton and Mireya for the opportunity to participate in this patient's care. EDUCATION Ready to learn, no apparent learning barriers were identified; learning preferences include listening. Explained diagnosis and treatment plan; patient expressed understanding of the content. CONSENT Discussed the risks, benefits, alternatives, and the necessity of other members of the healthcare team participating in the procedure. All questions answered and consent given. DIAGNOSIS #1 Stage IIIB (cT1b, cN3, cM0) adenocarcinoma of the left lower lung Signed by: Hanh Marquez M.D. 05/13/2023 4:48 PM CDT Radiation Oncology [facility] [address] [place] [phone] documented in this encounter Plan of Treatment Upcoming Encounters Date Type Department Care Team (Latest Contact Info) Description 01/07/2024 9:00 AM CDT Clinical Communication Virtual Review in [place], [place] [address] [place] [address] 01/09/2024 9:00 AM CDT Appointment Department of Radiation Oncology in [address] [phone] Hanh Marquez M.D. 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
--- NOTE | 2023-10-30 09:00 | CRLHL7_ITS ---
For Patients: As a result of the Century Cures Act, medical imaging exams and procedure reports are released immediately into your electronic medical record. You may view this report before your referring provider. If you have questions, please contact your health care provider. INDICATION: History of lung cancer. TECHNIQUE: PA and lateral chest. COMPARISON: 10/10/[address] FINDINGS: Marked hyperinflation and emphysema. Superior left lower lobe opacity is similar to the CT. Right-sided Port-A-Cath. Surgical clips in the upper abdomen and lower mediastinum. No significant change. Dictated by Noah Ludwig MD @ 10/30/2023 10:15:12 AM (Electronically Signed)
== END 2023-10-30 08:40 | disposition home or self-care (01) ==
PROVIDERS: PCP Family Medicine; Visit Provider Internal Medicine Hematology & Oncology
DX: C34.32 Malignant neoplasm of lower lobe, left bronchus or lung (principal)
CPT/HCPCS: 71046

== ENCOUNTER 2024-01-03 08:28 | Outpatient (CLI) | payer MEDICARE, OTHER, SELFPAY ==
--- NOTE | 2024-01-03 09:00 | CT_ITS ---
Patient: SHMUEL RIVERA Facility:?[facility] Patient ID:?[id number] Site Patient ID:?[id number]. Site :?[id number] Study:?CT-Chest 75CC ISOVUE 370-01/03/2024 11:07:28 AM Ordering Physician:?DR. TORIBIO Final Report: Indication: Follow-up lung cancer Technique: CT Chest 75CC ISOVUE 370 Please note that all CT scans at this facility use dose modulation, iterative reconstruction, and/or weight-based dosing when appropriate to reduce radiation dose to as low as reasonably achievable. Comparison: 10/10/2023 Findings: Postop changes to the GE junction and cholecystectomy again noted. Similar appearance of the visualized common bile duct. Trace amount of pericardial fluid again noted. COPD/emphysema. Stable nodule within the left upper lobe measuring 5 millimeters, . Similar parenchymal densities within the left lower lobe extending from the hilum to the pleura. Chronic anterior areas of scarring within the lingula. Increased parenchymal density within the inferior right middle lobe with air bronchograms. Persistent scarring at the right lower lobe. No enlarged lymph nodes. Curvature of the spine. No fracture. No suspicious osseous lesion. Impression: Treated cavitary lesion within the left lower lobe is decreased in size/conspicuity compared to the prior study with similar surrounding posttreatment change. Stable 5 millimeter left upper lobe nodule. Stable soft tissue fullness in the mediastinum and thanh without defined adenopathy. Increased scarring within the right middle lobe. Please note that all CT scans at this facility use dose modulation, iterative reconstruction, and/or weight-based dosing when appropriate to reduce radiation dose to as low as reasonably achievable. Dictated by Peter Gomez MD @ 01/03/2024 12:09:30 PM Signed by:?Peter Gomez MD @01/03/2024 12:09:30 PM (Electronic Signature)
[2024-01-03 09:15] LABS: Creatinine* 0.6 mg/dL (0.5-1.5); Estimated Glomerular Filt Rate 95 ml/min
== END 2024-01-03 08:29 | disposition home or self-care (01) ==
LOC: CT 08:32
PROVIDERS: PCP Family Medicine; Visit Provider Nurse Practitioner
DX: C34.32 Malignant neoplasm of lower lobe, left bronchus or lung (principal)
CPT/HCPCS: 36415; 71260; 82565; Q9967

== ENCOUNTER 2024-03-18 15:19 | Outpatient (CLI) | payer MEDICARE, OTHER, SELFPAY ==
--- OUTSIDE RECORDS SUMMARY | 2024-03-18 15:22 | XMS_ITS | Encounter Summary ---
Author Organization [facility] Address [address] [place] [address] Care Team Providers Care Chocolate Coater Name Role Phone Elsewhere, Pcp Primary Care Provider Unavailabl e Reason for Referral * Outpatient (Routine) - Authorized Specialty Diagnoses / Procedures Referred By Nicoleac t Referred To Contact Radiation Oncology Hanh Marquez M.D. [address] [place] [address] [facility] Referral ID Status Reason Start Date Expiration Date V isits Requested Visits Authorized [id number] Authorized 01/09/2024 07/10/2025 1 1 * Outpatient (Routine) - Closed Specialty Diagnoses / Procedures Referred By Vaibhav braden Referred To Contact Radiation Oncology aHnh Marquez M.D. [address] [place] [address] [facility] Referral ID Status Reason Start Date Expiration Date Visits Re quested Visits Authorized [id number] Closed 09/24/2023 09/23/2026 1 1 Scheduling Instructions Please schedule after CT chest at [facility]; please obtain the images prior to my phone visit (Can you write that in the notes?) Thanks! Reason for Visit * Outpatient (Routine) - Closed Specialty Diagnoses / Procedures Referred By Contac t Referred To Contact Radiation Oncology Hanh Marquez M.D. [address] [place] [address] [facility] Region Referral ID Status Reason Start Date Expiration Date Visits Re quested Visits Authorized [id number] Closed 09/24/2023 09/23/2026 1 1 Encounter Details Date Type Department Care Team (Latest Contact Info) Description 01/09/2024 8:51 AM CDT - 01/09/2024 9:43 AM CDT Hospital Encounter Department of Radiation Oncology in [place], [place] [address] [place] [id number] Hanh Marquez M.D. [address] [place] [address] Malignant Neoplasm Of Lung Adenocarcinoma Right (HCC) (Primary Dx) Social History Tobacco Use Types Packs/Day Years Used Date Smoking Tobacco: Former Cigarettes Q uit: 2013 Passive Smoke Exposure: Current [...] needed for shortness of breath or wheezing. 01/07/2020 amLODIPine (NORVASC) 2.5 mg tablet Take 2.5 mg by mouth daily. 04/08/2023 azithromycin (ZITHROMAX) 250 mg tablet TAKE 1 TABLET (250 MG) BY MOUTH EVERY DAY FOR 4 DAYS STARTING TOMORROW 04/30/23 04/29/2023 budesonide-formoteroL (SYMBICORT) 160-4.5 mcg/actuation inhaler Inhale 2 puffs 2 (two) times a day as needed. 04/23/2023 codeine-guaiFENesin (ROBITUSSIN-AC) 10-100 mg/5 mL liquid Take 10 mL by mouth Medrol Dose Pack scheduling ONLY. 06/03/2023 diazePAM (VALIUM) 5 mg tablet TAKE 1 TABLET BY MOUTH EVERY 6 HOURS IF NEEDED FOR ANXIETY. TAKE 30 MINUTES PRIOR TO MRI. MAY REPEAT ONCE 04/18/2023 diphenhydramine-lidocain e-antacid (MAGIC MOUTHWASH) 1:1:1 Apply 5 mL to cheek. 06/24/2023 HYDROcodone-acetaminophe n (NORCO) 5-325 mg per tablet TAKE 1 tablet orally every 4 hours as needed for pain. as needed for cancer related pain.* 05/11/2023 lidocaine 2 % mouth solution Take 5 mL by mouth 4 (four) times a day. 05/28/2023 lidocaine-prilocaine (EMLA) 2.5-2.5 % cream 1 application topically once as needed for pain. Apply pea sized amount over port site 60 minutes prior to use; cover with plastic wrap.* 05/06/2023 lisinopriL (PRINIVIL,ZESTRIL) 40 mg tablet Take 40 mg by mouth daily. 02/13/2023 LORazepam (ATIVAN) 0.5 mg tablet Take 1 tablet (0.5 mg total) by mouth 2 (two) times a day. 60 tablet 05/16/2023 losartan (COZAAR) 100 mg tablet Take 100 mg by mouth daily. 02/28/2023 metoprolol succinate (TOPROL-XL) 100 mg 24 hr tablet Take 100 mg by mouth daily. 02/18/2023 nebulizer accessories kit Nebulizer, disposable neb kit x 4, reuseable neb kit x 1, mask x 1, filters x 1. Frequency of use: daily; Medication: duoneb Length of need:lifetime 12/21/2019 OLANZapine (ZyPREXA) 5 mg tablet Take 5 mg by mouth at bedtime. 05/31/2023 ondansetron ODT (ZOFRAN-ODT) 4 mg disintegrating tablet DISSOLVE ONE OR TWO TABLETS IN MOUTH EVERY EIGHT HOURS NEEDED FOR NAUSEA OR VOMITING* 05/02/2023 ondansetron ODT (ZOFRAN-ODT) 4 mg disintegrating tablet Dissolve 1 tablet (4 mg total) in the mouth every 8 (eight) hours as needed for nausea or vomiting. 20 tablet 3 05/21/2023 oxyCODONE-acetaminophen (PERCOCET) 5-325 mg per tablet 05/11/2023 prochlorperazine (COMPAZINE) 10 mg tablet Take 10 mg by mouth every 6 (six) hours as needed. for nausea 04/27/2023 rosuvastatin (CRESTOR) 20 mg tablet Take 20 mg by mouth daily. 02/18/2023 vancomycin (FIRVANQ) 25 mg/mL solution Take 125 mg by mouth. 04/27/2021 vancomycin (VANCOCIN) 125 mg capsule Take 125 mg by mouth daily. 06/20/2021 documented as of this encounter Progress Notes * Hanh Marquez M.D. - 01/09/2024 9:00 AM CDT RADIATION ONCOLOGY PHONE FOLLOW-UP NOTE SUBJECTIVE REFERRAL SOURCE Established patient DIAGNOSIS 1. Left lower lung adenocarcinoma Consult conducted via real-time audio/video technology by Hanh Marquez M.D. in [facility] to the patient in Patient's Home [...] Other Patient presented to emergency room in [place], [place] for elevated blood pressure at home, [...] Dr. Tobin Ardon, thoracic surgery at [facility]. Recommend referral to Medical Oncology. Did not feel patient was a surgical candidate given the higher stage. 04/19/2023 Critical Imaging MRI brain demonstrated no evidence of intracranial metastases. 04/26/[address] Zahira Cortez, [place] [facility]. Recommended concurrent chemoradiation with weekly Carbo/Taxol. 05/08/2023 Other Video visit with Medical Oncology at [facility] in [place]. Agreed with the diagnosis and staging of [id number]-[id number] lung cancer as first described by Dr. [...] lymph nodes. 09/19/2023 Critical Imaging PET/CT at [facility] demonstrated majority of pulmonary consolidations have resolved, in keeping with prior pneumonia. The primary lung lesion in the left lower lung shows cavitation and posttreatment fibrosis. No worrisome solid or hypermetabolic component. No new or enlarging pulmonary metastases or yony or distant disease. 01/03/[address] chest with IV contrast demonstrated that the treated cavitary lesion within the left lower lobe is decreased in size/conspicuity compared to prior study with similar surrounding posttreatment change. Stable 5 mm VENTURA nodule. Stable soft tissue fullness in the mediastinum and thanh without defined adenopathy. Increased scarring with in the right middle lobe. INTERVAL HISTORY: Since I last saw Mrs. Racheal Regalado she reports that she is doing well. She states that about a month ago she saw a data analyst etl developer who put her on prednisone 40 mg with the weekly taper of 10 mg for a cough and phlegm. She is now off the steroids but still has the persistent cough. She states the phlegm is now clear. She notes no hemoptysis. She states her weight increased slightly with the steroids and is now back to her baseline and she is maintaining. She had some lower back pain when her cough was worse, but this is better now. She has no other back or bone pain. She states that she does wake up with a headache and this resolves with Tylenol. She has no nausea vomiting, focal weakness or numbness, or bowel or bladder incontinence. She states that after her CT scanthat her head felt hot, but she didn't get hives or flushing. She has never had that reaction before. OBJECTIVE There were no vitals taken for [...] 2023 through June 27, 2023 hospitalization at [facility] due to pneumonia and A. fib I reviewed the above findings with Mrs. Regalado on the phone. I shared with her that I reviewed herrecent imaging as well and see nothing concerning. I do note that there were some inflammatory changes in the superior segment of her left lower lung and in lower segment of her anterior lung. I agree with the findings as noted above in the oncology history for this exam. Overall I think she is doing well. She remains on durvalumab. We will do another phone visit in 6 months. She knows that she can call me if she has any questions or concerns. Her questions are answered. I told her to mention her head reaction with IV contrast to Dr. Cortez and ask her if she needs pre-medication for the next CT chest. EDUCATION: Ready to learn, no apparent learning barriers were identified; learning preferences include listening. Explained diagnosis and treatment plan; patient expressed understanding of the content. I personally spent 20 minutes in care of the patient today. Time includes both non face to face andface to face patient care. Signed by: Hanh Marquez M.D. 01/09/2024 9:28 AM CDT Radiation Oncology [facility] [address] [place] [address] documented in this encounter Plan of Treatment Scheduled Referrals Name Type Priority Associated Diagnoses Order Schedule Radiation Oncology office visit (clinic) Outpatient Referral Routine Once for 1 Occurrences starting 01/09/2024 until 01/09/2024 Radiation Oncology office visit (clinic) Outpatient Referral Routine Expected: (Approximate), Expires: 01/08/2025 documented as of this encounter Visit Diagnoses Diagnosis Malignant Neoplasm Of Lung Adenocarcinoma Right (HCC)- Primary documented in this encounter Care Teams Chocolate Coater Relationship Specialty Start Date End Date Elsewhere, Pcp PCP - General Family Medicine 05/07/23 documented as of this encounter
--- OUTSIDE RECORDS SUMMARY | 2024-03-18 15:22 | XMS_ITS | Clinical Summary ---
Author Organization [facility] Address [address] [place] [address] Care Team Providers Care After School Program Coordinator Name Role Phone Elsewhere, Pcp Primary Care Provider Unavailabl e Source Comments Patient records contain information from all sites at [facility]. For routine questions regarding patient records, call [phone] during business hours, M-F 8:00 AM - 5:00 PM Central Time. Record requests for emergency care only can be directed to [phone] at any time.[facility] Allergies Active Allergy Reactions Criticality Noted [...] for shortness of breath or wheezing. 01/07/2020 Active amLODIPine (NORVASC) 2.5 mg tablet Take 2.5 mg by mouth daily. 04/08/2023 Active budesonide-formoteroL (SYMBICORT) 160-4.5 mcg/actuation inhaler Inhale 2 puffs 2 (two) times a day as needed. 04/23/2023 Active losartan (COZAAR) 100 mg tablet Take 100 mg by mouth daily. 02/28/2023 Active metoprolol succinate (TOPROL-XL) 100 mg 24 hr tablet Take 100 mg by mouth daily. 02/18/2023 Active vancomycin (VANCOCIN) 125 mg capsule Take 125 mg by mouth daily. 06/20/2021 Active rosuvastatin (CRESTOR) 20 mg tablet Take 20 mg by mouth daily. 02/18/2023 Active nebulizer accessories kit Nebulizer, disposable neb kit x 4, reuseable neb kit x 1, mask x 1, filters x 1. Frequency of use: daily; Medication: duoneb Length of need:lifetime 12/21/2019 Active vancomycin (FIRVANQ) 25 mg/mL solution Take 125 mg by mouth. 04/27/2021 Active azithromycin (ZITHROMAX) 250 mg tablet TAKE 1 TABLET (250 MG) BY MOUTH EVERY DAY FOR 4 DAYS STARTING TOMORROW 04/30/23 04/29/2023 Active diazePAM (VALIUM) 5 mg tablet TAKE 1 TABLET BY MOUTH EVERY 6 HOURS IF NEEDED FOR ANXIETY. TAKE 30 MINUTES PRIOR TO MRI. MAY REPEAT ONCE 04/18/2023 Active HYDROcodone-acetamino phen (NORCO) 5-325 mg per tablet TAKE 1 tablet orally every 4 hours as needed for pain. as needed for cancer related pain.* 05/11/2023 Active lidocaine-prilocaine (EMLA) 2.5-2.5 % cream 1 application topically once as needed for pain. Apply pea sized amount over port site 60 minutes prior to use; cover with plastic wrap.* 05/06/2023 Active lisinopriL (PRINIVIL,ZESTRIL) 40 mg tablet Take 40 mg by mouth daily. 02/13/2023 Active ondansetron ODT (ZOFRAN-ODT) 4 mg disintegrating tablet DISSOLVE ONE OR TWO TABLETS IN MOUTH EVERY EIGHT HOURS NEEDED FOR NAUSEA OR VOMITING* 05/02/2023 Active prochlorperazine (COMPAZINE) 10 mg tablet Take 10 mg by mouth every 6 (six) hours as needed. for nausea 04/27/2023 Active oxyCODONE-acetaminoph en (PERCOCET) 5-325 mg per tablet 05/11/2023 Active LORazepam (ATIVAN) 0.5 mg tablet Take 1 tablet (0.5 mg total) by mouth 2 (two) times a day. 60 tablet 05/16/2023 Active ondansetron ODT (ZOFRAN-ODT) 4 mg disintegrating tablet Dissolve 1 tablet (4 mg total) in the mouth every 8 (eight) hours as needed for nausea or vomiting. 20 tablet 3 05/21/2023 Active OLANZapine (ZyPREXA) 5 mg tablet Take 5 mg by mouth at bedtime. 05/31/2023 Active codeine-guaiFENesin (ROBITUSSIN-AC) 10-100 mg/5 mL liquid Take 10 mL by mouth Medrol Dose Pack scheduling ONLY. 06/03/2023 Active lidocaine 2 % mouth solution Take 5 mL by mouth 4 (four) times a day. 05/28/2023 Active diphenhydramine-lidoc stanton-antacid (MAGIC MOUTHWASH) 1:1:1 Apply 5 mL to cheek. 06/24/2023 Active Active Problems Problem Noted Date Diagnosed Date Dehydration 07/02/2023 Anuria 07/02/2023 Malignant Neoplasm Of Lung Adenocarcinoma Right 05/08/2023 Malignant Neoplasm Of Lung Lower Lobe Or Bronchu s Left 05/07/2023 Cancer Staging:Clinical stage from 04/12/2023:Stage IIIB(cT1b, cN3, cM0) - Unsigned Encounters Date Type Department Care Team Description 01/09/2024 8:51 AM CDT - 01/09/2024 9:43 AM CDT Hospital Encounter Department of Radiation Oncology in [address] [address] Hanh Marquez M.D. Malignant Neoplasm Of Lung Adenocarcinoma Right (HCC) (Primary Dx) 01/09/2024 Clinical Communication Department of Radiation Oncology in [address] [address] Hanh Marquez M.D. from Last 3 Months Immunizations Name Administration [...] Comments Blood Pressure 153/69 08/28/2023 11:29 AM GAME DESIGN INSTRUCTOR Pulse 66 08/28/2023 11:29 AM GAME DESIGN INSTRUCTOR Temperature 36.5 ??C (97.7 ??F) 08/28/2023 11:[address] Respiratory Rate - - Oxygen Saturation - - Inhaled Oxygen Concentration - - Weight 44.7 kg (98 lb 8.7 oz) 08/28/2023 11:29 A M GAME DESIGN INSTRUCTOR Height 166 cm (5' 5.35) 12/09/2012 8:39 AM GAME DESIGN INSTRUCTOR Body Mass Index - - Plan of Treatment Health Maintenance Due Date Last Done Comments Bone Density Scan (Osteoporosis Screen) 1950 CT Colonography 1950 Cologuard 1950 FIT 1950 Hepatitis C Screening 1950 Mammogram 09/19/2013 09/19/2012 (Perf ormed elsewhere) Zoster Vaccines (2 of 2) 04/29/2023 03/04/2023, 05/15 Depression Screening (Annual PHQ-2) 10/14/2023 Fall Risk Screen (Annual) 10/14/2023 COVID-19 Vaccine (2022- season) 2023 08/28/2023, 08/01/2022, 02/01/2022, Additional history exists Creatinine Level (Kidney Function Test) 07/22/2024 07/22/2023, 05/02/2023, 02/07/2023, Additional history exists Potassium Level 07/22/2024 07/22/2023, 04/14, 04/09/2023, Additional history exists Sodium Level 07/22/2024 07/22/2023, 04/14, 02/07/2023, Additional history exists DTaP,Tdap,and Td Vaccines (2 - Td or Tdap) 06/19/2026 06/19/2016 Fasting Glucose for Diabetes Screening 07/22/2026 07/22/2023, 05/02/2023, 02/07/2023, Additional history exists Colonoscopy 12/12/2030 12/12/2020, 01/12, 10/30/2012 (Performed elsewhere) Colorectal Cancer Screening 12/12/2030 Pneumococcal vaccine (65+ years) Completed 06/28/2020, 08/27/2019 Influenza Vaccine Completed 08/12/2023, , 07/26/2021, Additional history exists HPV Vaccines Aged Out No longer eligi ble based on patient's age to complete this topic Medical Devices Implanted Type Area Pole Framer Machine Device Identifier Shelf Expiration Date Model / Serial / Lot Hardware E.G. Pins/Screws/R ods Hardware e.g. pins/screws/ rods Duodenum Description:[place] Procedures Procedure Name Priority Date/Time Associated Diagnosis Comments OUTSIDE CT BODY Routine 01/03/2024 9:50 AM CDT EXTI BASIC METABOLIC PANEL, S/P Routine 07/22/2023 4:02 PM CDT COLONOSCOPY Routine 01/23/2013 1:25 PM CDT from Last 3 Months or Most Recently Relevant to Health Maintenance Results * CT CHEST W CON-Outside CT Body (01/03/2024 9:50 AM CDT) Narrative IIMS - 01/04/2024 3:50 AM CDT This order has been created and auto-finalized to support the import of outside images. If available, original interpretation can be found on the Media Tab in Chart Review, in Document Viewer, or as an image in QREADS. If a re-interpretation or overread is required please follow defined workflow. ?? Provider Not In System IMG CT PROCEDURES IIMS NA * Colonoscopy (01/23/2013 1:25 PM CDT) 01/23/2013 1:25 PM CDT Siva Philip M.D. GI PROCEDURE ORDERA BLES [facility] [address] [place] [address] from Last 3 Months or Most Recently Relevant to Health Maintenance Care Teams After School Program Coordinator Relationship Specialty Start Date End Date Elsewhere, Pcp PCP - General Family Medicine 05/07/23
--- OUTSIDE RECORDS SUMMARY | 2024-03-18 15:22 | XMS_ITS ---
Author Organization [facility] Address [address] [place] [address] Care Team Providers Care Drafting Instructor Name Role Phone Elsewhere, Pcp Primary Care [...] Treated Prescribed Fraction Dose Prescribed Total Dose [id number] 07/03/2023 49 30 of 30 200 cGy 6,000 cGy Reference Point Last Treated On Elapsed Days Session Dose Total Dose [id number] 07/03/2023 49 200 cGy 6,000 cGy
--- OUTSIDE RECORDS SUMMARY | 2024-03-18 15:22 | XMS_ITS | Referral Summary ---
Author Organization [facility] Address [address] [place] [address] Care Team Providers Care Mender Hand Name Role Phone Elsewhere, Pcp Primary Care Provider Unavailabl e Source Comments Patient records contain information from all sites at [facility]. For routine questions regarding patient records, call [phone] during business hours, M-F 8:00 AM - 5:00 PM Central Time. Record requests for emergency care only can be directed to [phone] at any time.[facility] Encounters Date Type Department Care Team Description 01/09/2024 Clinical Communication Department of Radiation Oncology in [address] [address] Hanh Marquez M.D. 01/09/2024 8:51 AM CDT - 01/09/2024 9:43 AM CDT Hospital Encounter Department of Radiation Oncology in [address] [phone] aHnh Marquez M.D. Malignant Neoplasm Of Lung Adenocarcinoma Right (HCC) (Primary Dx) from Last 3 Months [...] Comments Blood Pressure 153/69 08/28/2023 11:29 AM PEDIATRIC INTENSIVE PHYSICIAN Pulse 66 08/28/2023 11:29 AM PEDIATRIC INTENSIVE PHYSICIAN Temperature 36.5 ??C (97.7 ??F) 08/28/2023 11:[address] Respiratory Rate - - Oxygen Saturation - - Inhaled Oxygen Concentration - - Weight 44.7 kg (98 lb 8.7 oz) 08/28/2023 11:29 A M PEDIATRIC INTENSIVE PHYSICIAN Height 166 cm (5' 5.35) 12/09/2012 8:39 AM PEDIATRIC INTENSIVE PHYSICIAN Body Mass Index - - Plan of Treatment Not on file Medical Devices Implanted Type Area Money Laundering Investigator Device Identifier Shelf Expiration Date Model / Serial / Lot Hardware E.G. Pins/Screws/R ods Hardware e.g. pins/screws/ rods Duodenum Description:[place] Procedures Procedure Name Priority Date/Time Associated Diagnosis [...] Philip M.D. GI PROCEDURE ORDERA BLES [facility] [address] [place] [address] from Last 3 Months or Most Recently Relevant to Health Maintenance Care Teams Mender Hand Relationship Specialty Start Date End Date Elsewhere, Pcp PCP - General Family Medicine 05/07/23
--- OUTSIDE RECORDS SUMMARY | 2024-03-18 15:22 | XMS_ITS | Clinical Summary ---
Author Organization [facility] Address [address] [facility] [place] [address] Care Team Providers Care Motel Keeper Name Role Phone Shar Bartlett RD Unavailable [phone] Willam Jaramillo MD Primary Care Provider [...] Inhale 2 puffs into the lungs daily Active albuterol (PROAIR HFA/PROVENTIL HFA/VENTOLIN HFA) 108 (90 Base) MCG/ACT inhaler Inhale 1-2 puffs into the lungs every 4 hours as needed for shortness of breath / dyspnea or wheezing Active albuterol (PROVENTIL) (2.5 MG/3ML) 0.083% neb solution Take 2.5 mg by nebulization every 4 hours as needed for shortness of breath / dyspnea or wheezing Active rosuvastatin (CRESTOR) 20 MG tablet Take 20 mg by mouth daily Active ferrous sulfate (FEROSUL) 325 (65 Fe) MG tabletIndications:Ir on deficiency anemia, unspecified iron deficiency anemia type Take 1 tablet (325 mg) by mouth daily 60 tablet 1 12/18/2020 Active atenolol (TENORMIN) 50 MG tablet Take 25 mg by mouth daily Active aspirin 81 MG EC tablet Take 81 mg by mouth daily Active vancomycin (FIRVANQ) 25 MG/ML oral solutionIndications: C. difficile colitis Take 5 mLs (125 mg) by mouth 4 times daily . Length of treatment to be decided by Sina Landers and Pattie. 300 mL 3 04/27/2021 Active amLODIPine (NORVASC) 5 MG tablet Take 1 tablet (5 mg) by mouth daily 30 tablet 05/31/2021 Active Additional Information Patient not taking.Reported on 06/07/2021 vancomycin (VANCOCIN) 125 MG capsuleIndications:R ecurrent Clostridioides difficile diarrhea Take 1 capsule (125 mg) by mouth 4 times daily 56 capsule 06/20/2021 Active bisacodyl (DULCOLAX) 5 MG EC tabletIndications:Hi story of Clostridioides difficile infection Take 2 tablets by mouth at bedtime two days prior to procedure. Take 2 tabs by mouth at 3pm one day prior to procedure. 4 tablet 06/26/2021 Active Additional Information Patient not taking.Reported [...] the other half of mixture. 4000 mL 06/26/2021 Active Additional Information Patient not taking.Reported [...] mg) by mouth daily 90 capsule 1 01/20/2024 Active Active Problems Problem Noted Date Diagnosed [...] Overview: Added automatically from request for surgery [id number] Diverticulitis of large intestine with abscess 0 04/21/2020 Diverticulitis of small intestine with abscess 0 04/19/2020 Acute diverticulitis 03/31/2020 Diverticulitis 03/28/2020 Encounters Date Type Department Care Team Description 01/20/2024 Orders Only [facility] [address] 4th [place] [address] Hakan Barton MD Recurrent Clostridioides difficile diarrhea from Last 3 Months Immunizations Name Administration Dates Next Due Influenza [...] COLONOGRAPHY 1950 DEXA 1950 FLEX SIG 1950 LIPID 1950 MAMMO SCREENING 1950 sDNA (Cologuard) 1950 HEPATITIS C SCREENING 02/03/1968 RSV VACCINE ( & 60+) (1 - 1-dose 60+ series) 2010 FALL RISK ASSESSMENT 2015 FIT 04/07/2022 04/07/2021, 06/0 02/2020, 02/23/2020 ZOSTER IMMUNIZATION (3 of 3) 04/29/2023 03/04/2023, 06/11/2011 COVID-19 Vaccine (2022- season) 2023 08/01/2022, 02/01/2022, 09/04/2021, Additional history exists PHQ-2 (once per calendar year) 2023 04/10/2022, 02/28/2022, 11/13/2021 LUNG CANCER SCREENING 04/12/2024 04/12/2023 , 03/20/2023, 12/31/2018, Additional history exists INFLUENZA VACCINE (Season Ended) 2024 08/01/2022, 07/26/2021, 06/28/2020, Additional history exists MEDICARE ANNUAL WELLNESS VISIT 03/02/2025 03/02/2024, 02/28/2023, 07/26/2021, Additional history exists COLONOSCOPY 12/13/2025 07/03/2021, 06/15, 12/12/2020, Additional history exists COLORECTAL CANCER SCREENING 12/13/2025 ADVANCE CARE PLANNING 01/05/2026 01/05/2021 GLUCOSE 05/02/2026 05/02/2023, 01/13, 02/07/2023, Additional history exists DTAP/TDAP/TD IMMUNIZATION (2 - Td or Tdap) [...] this topic Medical Devices Implanted Type Area Tobacco Warehouse Agent Device Identifier Shelf Expiration Date Model / Serial / Lot Whistle Tip 5fr X 70cm, Right Implanted:Qty: 1 on 12/13/2020 by Jerrod Jose MD at [facility] Right: Ureter BARD 01/11/2022 [id number] / / [id number] Whistle Tip 5 Fr X 70cm, Left Implanted:Qty: 1 on 12/13/2020 by Jerrod Jose MD at [facility] Left: Ureter BARD 01/11/2022 [id number] / / [id number] Explanted Type Area Tobacco Warehouse Agent Device Identifier Shelf Expiration Date Model / Serial / Lot Bard Whistle Tip 5fr. X 70 Cm Implanted:Qty: 1 Explanted:Qty: 1 on 04/21/2020 at [facility] Right: Ureter BARD 08/10/2020 [id number] / / [id number] Bard Whistle Tip 5 Fr. X 70 Cm Implanted:Qty: 1 Explanted:Qty: 1 on 04/21/2020 at [facility] Left: Ureter BARD 01/11/2022 [id number] / / [id number] Procedures Procedure Name Priority Date/Time Associated Diagnosis Comments BASIC METABOLIC PANEL STAT 05/02/2023 3:[address] CHEST W/O CONTRAST Routine 04/12/2023 6:52 AM CDT COLONOSCOPY Routine 07/03/2021 1:54 PM CDT OCCULT BLOOD STOOL STAT 04/07/2021 1: 34 PM CDT from Last 3 Months or Most Recently Relevant to Health Maintenance Results * (ABNORMAL) Basic metabolic panel (05/02/2023 3:17 PM CDT) [facility] Signature Sodium 140 136 - 145 mmol/L 05/02/2023 [...] CDT Michael Martinez MD LAB - BLOOD [facility] [address], [address] [place] [address], [facility] [phone] * COLONOSCOPY (07/03/2021 1:54 PM CDT) COLONOSCOPY [address] [address] [phone] ? Endoscopy Department ___ Patient Name: Racheal Regalado ? Procedure Date: 07/03/2021 1:54 PM ? Date of : 1950 ?Admit Type: Outpatient Age: 71 ? Room: #2 ? Gender: Female ?Note Status: Addendum Attending MD: Hakan Barton MD ?? Total Sedation Time: ___ Procedure: ? Colonoscopy Indications: ? Chronic diarrhea Providers: ? Hakan Barton MD, Sally Tang Patient Profile: ? This is a 71 year old female s/p partial colon resection ? 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 So far she had failed 2 oral ? capsule IMT treatments, the second one was done along ? with Zinplava. This is her third IMT. It was noted that ? the patient had to be admitted after her last two ? colonoscopies due to paradoxic reactions to sedative ? medications. Referring MD: ?Tamiko Ruiz MD Medicines: ? Midazolam 5 mg IV, Fentanyl 25 micrograms IV, ? Diphenhydramine 50 mg IV Complications: ? No immediate complications. ___ Procedure: ? Pre-Anesthesia Assessment: ? - Airway Examination: normal oropharyngeal airway and ? neck mobility. ? - Respiratory Examination: clear to auscultation. ? - CV Examination: regular rate and rhythm. ? - Mental Status Examination: alert and oriented. ? - ASA Grade Assessment: III - A patient with severe ? systemic disease. ? - After reviewing the risks and benefits, the patient ? was deemed in satisfactory condition to undergo the ? procedure. ? - The anesthesia plan was to use moderate ? sedation/analgesia (conscious sedation). ? - Immediately prior to administration of medications, ? the patient was re-assessed for adequacy to receive ? sedatives. ? - Sedation was administered by an endoscopy nurse. The ? sedation level attained was moderate. ? - The heart rate, respiratory rate, oxygen saturations, ? blood pressure, adequacy of pulmonary ventilation, and ? response to care were monitored throughout the procedure. ? - The physical status of the patient was re-assessed ? after the procedure. ? After obtaining informed consent, the colonoscope was ? passed under direct vision. Throughout the procedure, ? the patient's blood pressure, pulse, and oxygen ? saturations were monitored continuously. The Colonoscope ? was introduced through the anus and advanced to the ? cecum, identified by appendiceal orifice and ileocecal ? valve. The colonoscopy was performed without difficulty. ? The patient tolerated the procedure well. The quality of ? the bowel preparation was good. ? Findings: ? Multiple small and large-mouthed diverticula were found in the sigmoid ? colon. ? There was evidence of a prior end-to-end colo-colonic anastomosis in the ? sigmoid colon. This was patent and was characterized by healthy ? appearing mucosa. ? A tattoo was seen in the descending colon. ? Intestinal microbiota was infuesed into the cecum (unit ? [id number]^1 1). ? Normal mucosa was found in the entire colon. Biopsies for histology were ? taken with a cold forceps from the transverse colon for evaluation of ? microscopic colitis. ? Moderate Sedation: ? Moderate (conscious) sedation was administered by the endoscopy nurse ? and supervised by the endoscopist. The patient's oxygen saturation, ? heart rate, blood pressure and response to care were monitored. Total ? physician intraservice time was 21 minutes. Impression: ?- Diverticulosis in the sigmoid colon. ? - Patent end-to-end colo-colonic anastomosis, ? characterized by healthy appearing mucosa. ? - A tattoo was seen in the descending colon. ? - Biopsies were done in the transverse colon to rule out ? microscopic colitis. ? - IMT was done. Recommendation: ?- Return to my office in 2 months. ? - Any antibiotic prescription should be cleared with DrMarlena ? Mick ? Signed Electronically by Hakan Barton MD __ Hakan Barton MD 07/03/2021 4:07:20 PM I was physically present for the entire viewing portion of the exam. Signature of teaching physician Eve Barton MD Number of Addenda: 1 Note Initiated On: 07/03/2021 1:54 PM Scope In: Scope Out: ___ Addendum Number: 1 ?? Addendum Date: 07/03/2021 4:12:56 PM ? Conscious sedation was administered under direct supervision and ? monitoring by Dr. Barton for 21 minutes. Signed Electronically by Hakan Barton MD __ Hakan Barton MD 07/03/2021 4:13:23 PM I was physically present for the entire viewing portion of the exam. Signature of teaching physician [id number] Barton MD RADIOLOGY RESULTS 07/03/2021 1:54 PM CDT Tamiko Ruiz MD PROCEDURES RADIOLOGY RESULTS * Stool: occult blood (04/07/2021 1:34 PM CDT) Occult Blood Negative NEG^Negati ve 04/07/2021 1:57 PM CDT [facility] Stool 04/07/2021 1:34 PM CDT 04/07/2021 1:50 PM CDT Hina Leggett DO LAB - STOOLS ORDER VIOLET [facility] [address] [place], [place] [address] [phone] from Last 3 Months or Most Recently Relevant to Health Maintenance Advance Directives For more information, please contact: [phone] * Full Code (Latest Code Status on File) Date Activated Date Inactivated Comments 04/27/2021 4:13 AM 04/27/2021 3:52 PM All basic an d advanced life-sustaining interventions are performed as appropriate Question Answer Comments Code status determined by: Discussion with patie nt/ legal decision maker * Full Code Date Activated Date Inactivated Comments 04/07/2021 7:39 PM 04/09/2021 7:51 PM All basic an d advanced life-sustaining interventions are performed as appropriate Question Answer Comments Code status determined by: Discussion with patie nt/ legal decision maker * Full Code Date Activated Date Inactivated Comments 12/25/2020 2:40 PM 12/29/2020 8:13 PM All basic an d advanced life-sustaining interventions are performed as appropriate Question Answer Comments Code status determined by: Discussion with patie nt/ legal decision maker * Full Code Date Activated Date Inactivated Comments 12/18/2020 7:38 AM 12/23/2020 10:18 PM Question Answer Comments Code status determined by: Discussion with patie nt/ legal decision maker * Full Code Date Activated Date Inactivated Comments 12/12/2020 9:29 PM 12/18/2020 7:38 AM All basic and advanced life-sustaining interventions are performed as appropriate Question Answer Comments Code status determined by: Discussion with patie nt/ legal decision maker Care Teams Motel Keeper Relationship Specialty [place] [address] [place] [address] PCP - General 07/28/[address] [place] [address] Registered Dietitian Dietitian, Registered 07/20/21
--- OUTSIDE RECORDS SUMMARY | 2024-03-18 15:22 | XMS_ITS | Encounter Summary ---
Author Organization [facility] Address [address] [place] [address] Care Team Providers Care Furnace Keeper Name Role Phone Elsewhere, Pcp Primary Care Provider Unavailabl e Encounter Details Date Type Department Care Team (Late st Contact Info) Description 01/09/2024 Clinical Communication Department of Radiation Oncology in [place], [place] [address] [place] [id number] Hanh Marquez M.D. [address] [place] [address] Social History Tobacco Use Types Packs/Day Years [...] encounter Miscellaneous Notes * Telephone Encounter - Hanh Marquez M.D. - 01/09/2024 3:16 PM CDT I called the patient back and let her know that I did not tell her that her lung was collapsed. I told her that I saw some inflammation in the left lung and that is likely why she needed the steroids. We will continue to watch this inflammation and make sure that it improves. She was very appreciative of the phone call and explanation. * Telephone Encounter - Dori Aviles - 01/09/2024 2:55 PM CDT Other Reason for Call Caller: Racheal Relationships to patient: Self Reason for call: Racheal called as she spoke with Dr. Marquez over the phone this morning. Racheal stated that during the phone visit Dr. Marquez shared that she looked over her CT images and saw that Racheal had a partial collapsed lung. Dr. Marquez asked Racheal if she was having any back pain, but then didn't mention anything further. Racheal is wondering if this is something she needs to be concerned about. She also has a call into her medical oncologist as well. [phone] documented in this encounter Plan of Treatment Not on file documented as of this encounter Visit Diagnoses Not on filedocumented in this encounter Care Teams Furnace Keeper Relationship Specialty Start Date End Date Elsewhere, Pcp PCP - General Family Medicine 05/07/23 documented as of this encounter
--- OUTSIDE RECORDS SUMMARY | 2024-03-18 15:22 | XMS_ITS ---
Author Organization [facility] Address [address] [place] [address] Care Team Providers Care Lay Out Helper Name Role Phone Unavailable Unavailable Unavailable Surgery Details Not on file Complications Check Surgery Details section. Procedure Estimated Blood Loss Check Surgery Details section. Procedure Findings Check Surgery Details section. Procedure Specimens Taken Check Surgery Details section.
--- OUTSIDE RECORDS SUMMARY | 2024-03-18 15:22 | XMS_ITS | Clinical Summary ---
Author Organization [facility] Address [address] [place] [address] Phone Care Team Providers Care Customer Care Agent Name Role Phone Tamiko Ruiz MD Primary Care Provider [phone] Allergies Active Allergy Reactions Criticality Noted Date Comments Sulfamethoxazole-Trimethopr im 03/09/2021 Cefuroxime Anaphylaxis High 03/09/2021 Codeine 03/09/2021 Increase BP, Increase HR Meperidine 03/09/2021 Increase HR, Increase BP Doxycycline Anaphylaxis High 03/09/2021 Metronidazole 03/09/2021 Iron Sucrose Anaphylaxis High 03/09/2021 Chills, SOB, increase HR, wheezing, fever, increase BP Citrate Of Magnesia 03/09/2021 Went unconcious Morphine 03/09/2021 Racing heart, sweating Penicillins Anaphylaxis High 03/09/2021 Gatifloxacin Anaphylaxis High 03/09/2021 Hydrocodone-Acetaminophen 03/09/2021 Increase HR, Increase BP Medications Medication Sig Dispensed Refills Start Date End Date Status budesonide-formoterol (SYMBICORT) 160-4.5 MCG/ACT inhaler Inhale 2 puffs 2 (two) times a day Active ferrous sulfate 325 (65 Fe) MG EC tablet Take 325 mg by mouth 1 (one) time each day with breakfast Active rosuvastatin (CRESTOR) 20 MG tablet Take 20 mg by mouth 1 (one) time each day Active vancomycin (VANCOCIN) 125 MG capsule Take 125 mg by mouth 2 (two) times a day Active Active Problems Problem Noted Date Diagnosed Date Peritoneal abscess 12/25/2020 Diverticular disease of colon 12/12/2020 Overview: Added automatically from request for surgery [id number] Diverticulitis of large intestine 04/21/2020 Anxiety 12/09/2019 Chronic obstructive pulmonary disease 12/09/2019 Chronic back pain 05/19/2013 Overview: S/P 5 lumbar surgeries. Adjustment disorder with depressed mood 08/29/20 12 Overview: Aug 2012: family stress, started wellbutrin SR. September 2012: dose adjusted to wellbutrin SR 100mg twice daily. Family History Medical History Relation Comments Cancer Father Early Father Arthritis Mother COPD Mother Early Mother Heart disease Mother Hypertension Mother Kidney disease Mother Miscarriages / Stillbirths Mother Relation Status Comments Father Mother Social History Tobacco Use Types Packs/Day Years Used Date Smoking Tobacco: Former Cigarettes 2.5 40 1 2010 Smokeless Tobacco: Former Comments:Used vap for 3 vadim hs Alcohol Use Standard Drinks/Week Comments Yes 0 (1 standard drink = 0.6 oz pur e alcohol) AUDIT-C Answer Date Recorded Q1: How often do you have a drink containing alc ohol? 2-4 times a month 03/16/2021 Q2: How many drinks containi ng alcohol do you have on a typical day when you are drinking? 1 or 2 03/16/2021 Q3: How often do you have si x or more drinks on one occasion? Not asked 03/16/2021 Sex and Gender Information Value Date Recorded Sex Assigned at Not on file Gender Identity Not on file Sexual Orientation Not on file Last Filed Vital Signs Vital Sign Reading Time Taken Comments Blood Pressure 180/94 03/16/2021 10:54 AM CDT Pulse 83 03/16/2021 10:54 AM CDT Temperature 36.6 ??C (97.8 ??F) 03/16/2021 10:54 AM C DT Respiratory Rate - - Oxygen Saturation - - Inhaled Oxygen Concentration - - Weight 43.5 kg (96 lb) 03/16/2021 10:54 AM CDT Height 162.6 cm (5' 4) 03/16/2021 10:54 AM CDT Body Mass Index 16.48 03/16/2021 10:54 AM CDT Plan of Treatment Health Maintenance Due Date Last Done Comments Pneumococcal PPSV23/PCV13 65 + Years / Low and Medium Risk (1 of 4 - PCV) 2015 Influenza Vaccine (Season Ended) 2024 08/02/20 15, 10/29/2012 Care Teams Customer Care Agent Relationship Specialty Start Date End Date Tamiko Ruiz MD [facility] [address] [place], [place] [address] PCP - General 03/16/21
--- OUTSIDE RECORDS SUMMARY | 2024-03-18 15:23 | XMS_ITS | Encounter Summary ---
Author Organization [facility] Address [address] [facility] [place] [address] Care Team Providers Care Manager Traffic Name Role Phone [facility] [place] Primary Care Provider + Hakan Barton MD Unavailable [phone] Venus Barnes MD Primary Care Provider [phone] Unavailable [phone] Jon Eng MD Unavailable [phone] Willam Jaramillo MD Primary Care Provider Encounter Details Date Type Department Care Team (Late st Contact Info) Description 01/10/2021 [facility] Only [facility] [address] [place] [address] Tamiko Ruiz MD COLON RECTAL SURGERY [address] [id number] Abdominal pain (Primary Dx) Social History Tobacco [...] Out C-difficile 09/27/2021 09/27/2021 021 2:32 PM SOUND RECORDIST Rule Out C-difficile 01/14/2022 01/14/2022 022 6:15 PM CDT documented as of this encounter Care Teams Manager Traffic Relationship Specialty Start Date End Date [facility] [address] [place] [address] PCP - General 07/05/16 07/02/21 [place] [address] [place] [address] PCP - General 07/03/21 07/27/22 [place] [address] [place] [address] PCP - General 07/28/22 [place] [address] [place] [address] Assigned Gastroenterology Provider 05/07/21 08/30/[address] [place] [address] Registered Dietitian Dietitian, Registered 07/20/21 Jon Eng MD [address] [facility] [id number] [place] [address] Assigned Surgical Provider 04/14/22 documented as of this encounter
--- OUTSIDE RECORDS SUMMARY | 2024-03-18 15:23 | XMS_ITS | Clinical Summary ---
Author Organization [employer] [facility] Address [place], [place] [address] Care Team Providers Care Staff Air Defense Officer Name Role Phone Tamiko Ruiz MD Unavailable [phone] Willam Jaramillo MD Primary Care Provider Mary Kinney RN, BSN Unavailable [phone] Tobin Ardon MD Unavailable [phone] Allergies Active Allergy Reactions Criticality Noted Date Comments Acetaminophen Hypertension High 10/15/2022 Amphetamine Other - Describe In Comment Field 12/11/2012 Benzedrine- Hypertension, nausea Cefuroxime Anaphylaxis,Dyspnea, Hypertension,Tachyca rdia High 12/10/2013 Blood [...] Penicillins Anaphylaxis,Throat Swelling/Closing High 07/02/2016 Throat swells Sulbactam GI Upset 10/15/2022 Sulfamethoxazole GI Upset 10/15/2022 Gatifloxacin Anaphylaxis,Dyspnea, Hypertension,Tachyca rdia High 12/10/2013 Blood pressure rises, heart races and pt has a hard time breathing Trimethoprim GI Upset 10/15/2022 Sulfamethoxazole-Trimeth oprim Nausea Only,Dizziness Medium 09/26/2015 Bactrim Ampicillin-Sulbactam Nausea And Vomiting Medium 2014 Hydrocodone-Acetaminophe n Dyspnea,Hypertension ,Tachycardia Medium 12/10/2013 Blood pressure rises, heart races and pt has a hard time breathing Medications Medication Sig Dispensed Refills Start Date End Date Status albuterol HFA 90 mcg/actuation inhalerIndicatio ns:Chronic obstructive pulmonary disease, unspecified COPD type (HC) Inhale 1-2 Puffs by mouth every 4 hours if needed. 1 Inhaler 6 9 Active NebulizerIndicat ions:COPD exacerbation (HC) Nebulizer, disposable neb kit x 4, reuseable neb kit x 1, mask x 1, filters x 1. Frequency of use: daily; Medication: duoneb Length of need:lifetime 1 Device 0 Active albuterol (PROVENTIL) 0.083 % neb solutionIndicati ons:COPD exacerbation (HC) Inhale 3 mL via a nebulizer every 4 hours if needed (sob / wheezing). 1 box 1 0 Active albuterol-ipratr opium (DUONEB) (2.5-0.5 mg) in 3 mL NEBULIZATION solutionIndicati ons:COPD with chronic bronchitis (HC) INHALE 3 ML VIA A NEBULIZER 4 TIMES DAILY. 1 box 2 0 Active vancomycin (FIRVANQ) 25 mg/mL solr Take 125 mg by mouth. 1 Active budesonide-formo teroL (Symbicort) 160-4.5 mcg/actuation (160-4.5 mcg each actuation) inhalerIndicatio ns:Chronic obstructive pulmonary disease, unspecified COPD type (HC) Inhale 2 Puffs by mouth two times daily. 1 Each 5 3 Active apixaban (ELIQUIS) 5 mg tabletIndication s:Atrial fibrillation, unspecified type (HC) Take 1 Tablet (5 mg) by mouth two times daily. 60 Tablet 11 3 Active furosemide (LASIX) 20 mg tabletIndication s:Pedal edema Take 1 Tablet (20 mg) by mouth every morning. 5 Tablet 3 Active metoprolol succinate SR (TOPROL XL) 200 mg Sustained-Releas e tabletIndication s:Paroxysmal atrial fibrillation (HC) Take 1 Tablet (200 mg) by mouth once daily. 90 Tablet 3 3 Active acetylcysteine 200 mg/mL (20%) neb solution INHALE 3 MILLILITERS BY NEBULIZATION ROUTE 2 TIMES EVERY DAY* 4 Active losartan (COZAAR) 100 mg tabletIndication s:HTN (hypertension) Take 1 Tablet (100 mg) by mouth once daily. 90 Tablet 1 4 Active rosuvastatin (CRESTOR) 20 mg tabletIndication s:Coronary artery disease involving iliamna coronary artery of iliamna heart without angina pectoris Take 1 Tablet (20 mg) by mouth at bedtime. 90 Tablet 3 4 Active rosuvastatin (CRESTOR) 20 mg tabletIndication s:Coronary artery disease involving iliamna coronary artery of iliamna heart without angina pectoris Take 1 Tablet (20 mg) by mouth once daily with evening meal. 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 Follows with Dr. Cortez at [facility]. Had radiation, on immunotherapy for 1 year Nodule of left lung 03/19/2023 Overview: 1.[address] in [place] 03/10/2023 Supraventricular tachycardia 02/18/2023 Coronary artery disease 07/18/2022 Overview: CT coronary test from 12/31/2018 IMPRESSION: 1. Prominent, nonobstructive coronary artery disease. A. Total calcium score is 612.6 representing 80th percentile for matched age and sex cohort. B. No obstructive coronary lesion to account for chest pain. C. Aggressive medical management recommended. History of cerebral aneurysm 05/19/2022 HTN (hypertension) [...] surgeries. Colon cancer screening 02/23/2013 Overview: 2012 [facility] colonoscopy positive for: diverticula and 10 mm polyp at the hepatic flexure with pathology showing tubular adenoma with low-grade dysplasia, Dr. Kruse at [facility] recommend repeat colonoscopy in 3 years in 2016. Adjustment disorder with depressed mood 08/29/20 Overview: Aug 2012: family stress, started wellbutrin SR. September 2012: dose adjusted to wellbutrin SR 100mg twice daily. Tobacco use disorder 08/29/2012 Overview: Successfully Quit March 2013. Resolved Problems Problem Noted Date Diagnosed Date Resolved Date Carotid aneurysm, right 06/20/202202/12 Overview: CT 03/2022- Incidental shallow 2 mm outpouching of the right carotid terminus which could represent aneurysm or infundibulum. Abdominal aortic aneurysm (A AA) without rupture 04/05/2021 11/20/[address] 04/29/2020 Overview: Patient with pelvic abscess due to diverticulitis. Sigmoid colectomy. 04/2020 Acute diverticulitis 03/28/2020 022 Acute blood loss anemia 12/09/2019 10/0 02/2022 GI bleed 12/09/2019 07/18/2022 Diverticulosis of large intestine 11/07/2012 04/29/2020 Overview: Colonoscopy 10/2012 severe diverticulosis incomplete exam, recommend CT colonography Weight loss 11/06/2012 04/29/2020 Overview: Unsuccessful Colonoscopy Oct 2012, Dr. Chris recommended CT of Colonography. C[facility] at [facility] Nov 2012, see consult note. Counseling for [...] Encounters Date Type Department Care Team Description 03/02/2024 8:45 AM CDT Office Visit [facility] [id number] [place] [address] Willam Jaramillo MD Medicare ANNUAL (subsequent) Visit (No concerns) 03/02/2024 Travel 02/17/2024 Refill [facility] [id number] [place] [address] Willam Jaramillo MD Refill Request (Rosuvastatin) 02/15/2024 Refill [facility] [id number] [place] [address] Willam Jaramillo MD Refill Request (Losartan) 02/10/2024 Nurse Triage [address] [address] Willam Jaramillo MD Blood In Urine 02/10/2024 Nurse Triage [address] [address] Willam Jaramillo MD open call 01/27/2024 Orders Only [facility] Scanner 1 scan: (1-Ord) [facility], COPD F/U, 01/27/2024 01/23/2024 Telephone [facility] - [address] [place] [phone] Dannie Beckman MD Medication Management 01/03/2024 Orders Only [facility] Scanner 1 scan: (1-Ord) [facility], CT CHEST W CON, 01/03/2024 from Last 3 Months Immunizations Name Administration Dates Next Due COVID-19 vaccine (Moderna 50 mcg/0.5mL) 12YO+ BIVALENT PF, MDV 08/01/2022 COVID-19 vaccine (Moderna Tanner karena 50mcg/0.25mL) PF, MDV 02/01/2022 COVID-19 vaccine (Pfizer-Bio NTech 30mcg/0.3mL) PF, MDV 09/04/2021,01/07/2021,12/06/2020 Influenza, High-dose Inactivated 06/28/2020 Influenza, High-dose Quadriv alent Inactivated 08/12/2023,06/28/2020 Influenza, IIV3 (Age >=3 years) 10/29/2012 Influenza, [...] Not Answered Alcohol Use Standard Drinks/Week Comments Yes 1 (1 standard drink = 0.6 oz pur e alcohol) 2-3 a week - More sometimes. PHQ-2 Answer Date Recorded PHQ-2 TOTAL SCORE 0 03/02/2024 Social Connections Answer Date Recorded Frequency of Communication with Friends and Fami ly 0 03/02/2024 Financial Resource Strain Answer Date R ecorded Difficulty of Paying Living Expenses 3 03/02/2024 Difficulty of Paying Living Expenses Not on file 03/02/2024 Food Insecurity Answer Date Recorded Worried About Running Out of Food in the Last Ye ar 1 03/02/2024 Transportation Needs Answer Date Record ed Lack of Transportation (Medical) 1 03/02/2024 Housing Stability Answer Date Recorded Unable to Pay for Housing in the Last Year 1 03/02/2024 Sex and Gender Information Value Date Recorded Sex Assigned at Not on file Gender Identity Not on file Sexual Orientation Not on file Obstetrics History Last Filed Vital Signs Vital Sign Reading Time Taken Comments Blood Pressure 128/85 03/02/2024 9:38 AM CDT Pulse 84 03/02/2024 8:42 AM CDT Temperature 36.3 ??C (97.3 ??F) 04/12/2023 1 1:35 AM CDT Respiratory Rate 16 04/12/2023 1:45 PM CDT Oxygen Saturation 96% 03/02/2024 8:4 2 AM CDT Inhaled Oxygen Concentration - - Weight 47.2 kg (104 lb 1.6 oz) 03/02/20 8:42 AM CDT with shoes Height 162.6 cm (5' 4) 03/02/2024 8:42 AM CDT Body Mass Index 17.87 03/02/2024 8:42 AM CDT Plan of Treatment Health Maintenance Due Date Last Done Comments DEXA/DXA scan for age 65+ 2015 Zoster (shingles) series for age 50+ (2 of 2) 04/29/2023 03/04/2023, 06/11/2011 COVID-19 vaccine series ( season) 2023 08/28/2023, 08/01/2022, 02/01/2022, Additional history exists Influenza for age 65+ 06/14/2024 08/12/2023 , 08/01/2022, 07/26/2021, Additional history exists Low Dose CT (for lung CA) ag e 50-80 10/10/2024 10/10/2023, 07/25/2023, 04/12/2023, Additional history exists BMI (ht and wt on same day) for age 18+ 03/02/2025 03/02/2024, 04/09/2023, 02/28/2023, Additional history exists Depression screening for age 12+ 03/02/2025 03/02/2024, 02/28/2023, 07/26/2021, Additional history exists Medicare Wellness for age 65+ 03/03/2025, 02/28/2023, 07/26/2021, Additional history exists Colonoscopy through age 75 12/12/202512/12, 12/11/2019, 11/06/2012 Tetanus booster 06/19/2026 06/19/2016 Lipids for age 45-75 03/02/2029 03/02/2024, 07/16/2022, 04/04/2021, Additional history exists Tdap Completed 06/19/2016 Fecal testing non-DNA (FIT,FOBT,iFOBT) for age 45-75 Discontinued 02/23/2020, 12/09/2019, 04/26/2016, Additional history exists Pneumococcal series for age 65+ Completed 0, 08/27/2019 Hepatitis C screening for ag e 18-79 Completed 07/20/2020 Procedures Procedure Name Priority Date/Time Associated Diagnosis Comments LIPID PANEL W REFLEX MEASURED LDL Routine 03/02/2024 10:13 AM CDT Lipid screening SCAN-PULMONARY FUNCTION TEST 01/27/2024 12:00 AM CDT SCAN-CT INTERPRETATION 12:[address] CHEST W Routine 10/10/2023 12:00 AM MACHINE LEARNING INTERN Nodule of left lung SCAN-COLONOSCOPY 12/12/2020 12:0 0 AM MACHINE LEARNING INTERN ANTI HCV Routine 07/20/2020 11:00 AM CDT Need for hepatitis C screening test OCCULT BLOOD IFOBT STOOL Routine 02/23/2020 6:00 AM CDT Acute blood loss anemia from Last 3 Months or Most Recently Relevant to Health Maintenance Results * LIPID PANEL W REFLEX MEASURED LDL (03/02/2024 10:13 AM CDT) CHOLESTEROL,TOTAL 128 100 - 199 mg/dL 03/02/2024 3:15 PM CDT [facility] [employer] [facility]AT[facility] Comment: Cholesterol, Total Reference Ranges Desirable <200 mg/dL Borderline 200-239 mg/dL High >=240 mg/dL TRIGLYCERIDES 94 <150 mg/dL 03/02/2024 3:15 PM CDT [facility] HDL CHOLESTEROL 61 >40 mg/dL 4 3:15 PM CDT [facility] NON-HDL CHOLESTEROL 67 <145 mg/dl 03/02/2024 3:15 PM CDT [facility] CHOL/HDL RATIO 2.10 <4.50 03/02/2024 3:15 PM CDT [facility] LDL CHOLESTEROL 48 <=130 mg/dL 03/02/2024 3:15 PM CDT [facility] VLDL CHOLESTEROL 19 <=30 mg/dL 03/02/2024 3:15 PM CDT [facility] PROVIDER ORDERED STATUS RANDOM 03/02/2024 3:15 PM CDT [facility] Blood BLOOD SPECIMEN / Unknown Butterfly / Unknown 03/02/2024 10:13 AM CDT 03/02/2024 10:13 AM CDT Willam Jaramillo MD CHEMISTRY [facility] [address] [place] [address], * SCAN-PULMONARY FUNCTION TEST (01/27/2024 12:00 AM CDT) Scanner OTHER * SCAN-CT INTERPRETATION (01/03/2024 12:00 AM CDT) Anatomical Region Laterality Modality Other Scanner OTHER * CT CHEST W (10/10/2023 12:00 AM MACHINE LEARNING INTERN) Anatomical Region Laterality Modality CHEST, THORAX, HEART Computed To mography Willam Jaramillo MD CT * SCAN-COLONOSCOPY (12/12/2020 12:00 AM MACHINE LEARNING INTERN) Scanner OTHER * ANTI HCV (07/20/2020 11:00 AM CDT) HEPATITIS C ANTIBODY Non-React swati Non-React swati 07/20/2020 8:05 PM CDT [facility] Comment:Antibodies to HCV no t detected; does not exclude the possibility of exposure to HCV. Blood BLOOD SPECIMEN / Unknown Butterfly / Unknown 07/20/2020 11:00 AM CDT 07/20/2020 11:46 AM CDT Rosy Croft DO SEND OUTS [facility] [address] [place] [address], [place] * OCCULT BLOOD IFOBT STOOL (02/23/2020 6:00 AM CDT) STOOL BLOOD ,IFOBT Negative Negative 02/23/2020 8:21 AM CDT [facility] Stool STOOL SPECIMEN / Unknown Non-Blood / Unknown 02/23/2020 6:00 AM CDT 02/23/2020 8:13 AM CDT Venus Barnes MD LABORATORY [facility] [address] [place] [address], [place] [phone] from Last 3 Months or Most Recently Relevant to Health Maintenance Advance Directives * Full Code (Latest Code Status on File) Date Activated Date Inactivated Comments 04/12/2023 7:10 AM 04/12/2023 6:02 PM Question Answer Comments Code Status Discussion: Unable to Assess Preferences, Provider to review later * Full Code Date Activated Date Inactivated Comments 12/09/2019 9:48 PM 12/15/2019 8:26 PM * Full Code Date Activated Date Inactivated Comments 09/30/2015 9:14 AM 09/30/2015 2:09 PM * Full Code Date Activated Date Inactivated Comments 09/30/2015 7:36 AM 09/30/2015 9:14 AM * Full Code Date Activated Date Inactivated Comments 02/22/2014 12:58 PM 02/23/2014 2:14 AM Care Teams Staff Air Defense Officer Relationship Specialty Start [place] [address] [place] [address] PCP - General Family Practice 02/18/23 [place] [address] [phone] Surgery - Colon and Rectal 03/18/20 Mary Kinney, RN, BSN [address] [place] [address] Nurse Navigator - Oncology Registered Nurse 04/12/23 Tobin Ardon MD [address] [place] [address] Surgery - Cardiothoracic 04/02/23
--- OUTSIDE RECORDS SUMMARY | 2024-03-18 15:23 | XMS_ITS | Encounter Summary ---
Author Organization [place] Address [address] [facility] [place] [address] Care Team Providers Care Electroplater Helper Name Role Phone Hakan Barton MD Unavailable [phone] Venus Barnes MD Primary Care Provider [phone] Unavailable [phone] Jon Eng MD Unavailable [phone] Willam Jaramillo MD Primary Care Provider Encounter Details Date Type Department Care Team (Late st Contact Info) Description 01/14/2022 [facility] [address] [place] [phone] Gerald Hadley Diarrhea, unspecified type Social History [...] Hakan Barton MD LAB - STOOLS ORDERA MERVAT [facility] SPECIALTY CORE/PROT/ENDO Specialty Core/Prot/Endo [address] [facility], Room [address] [phone] * Clostridium difficile toxin B (01/14/2022 11:30 [...] LABORATORY - 01/14/2022 6:15 PM CDT The [employer] Xpert C. difficile Assay, performed on the [employer] Gene[employer]fit[employer]?? Instrument Systems, is a qualitative in vitro [...] - MICRO GENERAL ORDERABLES [facility] Inf. Diseases Diag. Lab [address] [facility] [place] [address], [facility] [phone] * Enteric Bacteria and Virus Panel by [...] performed by multiplexed, qualitative PCR using the V[employer] Enteric Pathogens Nucleic Acid Test. Results should [...] - MICRO GENERAL ORDERABLES [facility] Inf. Diseases Diag. Lab [address] [facility], [address] [place] [address], [facility] [phone] documented in this encounter Visit Diagnoses Diagnosis Diarrhea, unspecified type documented in this encounter Additional Health Concerns Infection Onset Date Last Indicated Resolved Time Rule Out C-difficile 01/14/2022 01/14/2022 022 6:15 PM CDT documented as of this encounter Care Teams Electroplater Helper Relationship Specialty [place] [address] [place] [address] PCP - General 07/03/21 07/27/22 [place] [address] [place] [address] PCP - General 07/28/22 [place] [address] [place] [address] Assigned Gastroenterology Provider 05/07/21 08/30/[address] [place] [id number] Registered Dietitian Dietitian, Registered 07/20/21 Jon Eng MD [address] [place] [address] [id number] [place], [place] [id number] Assigned Surgical Provider 04/14/22 documented as of this encounter
--- OUTSIDE RECORDS SUMMARY | 2024-03-18 15:23 | XMS_ITS | Encounter Summary ---
Author Organization [place] Address [address] [facility] [place] [address] Care Team Providers Care Branch Or Department Chief Librarian Name Role Phone Hakan Barton MD Unavailable Venus Barnes MD Primary Care Provider [phone] Unavailable [phone] Jon Eng MD Unavailable [phone] Willam Jaramillo MD Primary Care Provider Encounter Details Date Type Department Care Team (Late st Contact Info) Description 09/27/2021 [facility] [address] [place] [address] [place] Downs Diarrhea, unspecified type Social History [...] COVID-19? No / Unsure 09/28/2021 7:30 AM TELEGRAPH OFFICE MANAGER documented as of this encounter Plan of Treatment Not on file documented as of this encounter Procedures Procedure Name Priority Date/Time Associated Diagnosis Comments ENTERIC BACTERIA AND VIRUS PANEL BY PCR Routine 09/27/2021 5:45 PM TELEGRAPH OFFICE MANAGER Diarrhea, unspecified type CLOSTRIDIUM DIFFICILE TOXIN B Routine 09/27/2021 5:45 PM TELEGRAPH OFFICE MANAGER Diarrhea, unspecified type CALPROTECTIN FECES Routine 09/27/2021 5: 45 PM TELEGRAPH OFFICE MANAGER Diarrhea, unspecified type ROUTINE PARASITOLOGY EXAM Routine 09/27/2021 5:45 PM TELEGRAPH OFFICE MANAGER Diarrhea, unspecified type documented in this encounter Results * Ova and Parasite Exam Routine (09/27/2021 5:45 PM TELEGRAPH OFFICE MANAGER) OVA AND PARASITE EXAM Negative Negative JACQUE 09/29/2021 2:20 PM TELEGRAPH OFFICE MANAGER [facility] Comment:A single negative sp ecimen does not rule out parasitic infection. Stool RECTAL CONTENTS / Unknown Non-blood Collection / Unknown 09/27/2021 5:45 PM TELEGRAPH OFFICE MANAGER 09/28/2021 7:42 AM TELEGRAPH OFFICE MANAGER Narrative [facility] - 09/29/2021 2:20 PM TELEGRAPH OFFICE MANAGER Cryptosporidium, Cyclospora and Microsporidia are not readily detected by this method. Hakan Barton MD LAB - MICRO GENERAL ORDERABLES [facility] Infectious Diseases Diagnostic Lab (IDDL) [address] [place] [address], [address] [place] [address], [facility] [phone] * Enteric Bacteria and Virus Panel by JAQUI Stool (09/27/2021 5:45 PM TELEGRAPH OFFICE MANAGER) Pathologist [facility] Campylobacter group Not Detected Not Detected 09/28/2021 9:23 PM TELEGRAPH OFFICE MANAGER [facility] Salmonella species Not Detected Not Detected 09/28/2021 9:23 PM TELEGRAPH OFFICE MANAGER [facility] Shigella species Not Detected Not Detected 09/28/2021 9:23 PM TELEGRAPH OFFICE MANAGER [facility] Vibrio group Not Detected Not Detected 09/28/2021 9:23 PM TELEGRAPH OFFICE MANAGER [facility] Rotavirus Not Detected Not Detected 09/28/2021 9:23 PM TELEGRAPH OFFICE MANAGER [facility] Shiga toxin 1 gene Not Detected Not Detected 09/28/2021 9:23 PM TELEGRAPH OFFICE MANAGER [facility] Shiga toxin 2 gene Not Detected Not Detected 09/28/2021 9:23 PM TELEGRAPH OFFICE MANAGER [facility] Norovirus I and II Not Detected Not Detected 09/28/2021 9:23 PM TELEGRAPH OFFICE MANAGER [facility] Yersinia enterocolitica Not Detected Not Detected 09/28/2021 9:23 PM TELEGRAPH OFFICE MANAGER [facility] Stool RECTAL CONTENTS / Unknown Non-blood Collection / Unknown 09/27/2021 5:45 PM TELEGRAPH OFFICE MANAGER 09/28/2021 7:41 AM TELEGRAPH OFFICE MANAGER Narrative [facility] - 09/28/2021 9:23 PM TELEGRAPH OFFICE MANAGER Testing performed by multiplexed, qualitative PCR using the [employer] Enteric Pathogens Nucleic Acid Test. Results should [...] - MICRO GENERAL ORDERABLES [facility] Infectious Diseases Diagnostic Lab (IDDL) [address] [place] [address], [address] [place] [address], [facility] [phone] * (ABNORMAL) Calprotectin Feces (09/27/2021 5:45 PM TELEGRAPH OFFICE MANAGER) Calprotectin Feces 341.0(H) 0.0 - 49.9 mg/kg 09/29/2021 1:35 PM TELEGRAPH OFFICE MANAGER SPECIALTY CORE/PROT/EN DO Comment: Abnormal, repeat as [...] Non-blood Collection / Unknown 09/27/2021 5:45 PM TELEGRAPH OFFICE MANAGER 09/28/2021 7:42 AM TELEGRAPH OFFICE MANAGER Hakan Barton MD LAB - STOOLS ORDERA BLES Performing Organization Address City/[facility]/ZIP Co de Phone Number SPECIALTY CORE/PROT/ENDO [facility] Specialty Core Lab [address] [facility], [address] [place] [address], [place] [phone] * Clostridium difficile Toxin B PCR (09/27/2021 5:45 PM TELEGRAPH OFFICE MANAGER) C Difficile Toxin B by PCR Negative Negative 09/28/2021 2:32 PM TELEGRAPH OFFICE MANAGER [facility] Comment:A negative result do es not exclude actual disease due to C. difficile and may be due to improper collection, handling and storage of the specimen or the number of organisms in the specimen is below the detection limit of the assay. Stool RECTAL CONTENTS / Unknown Non-blood Collection / Unknown 09/27/2021 5:45 PM TELEGRAPH OFFICE MANAGER 09/28/2021 7:41 AM TELEGRAPH OFFICE MANAGER Narrative [facility] - 09/28/2021 2:32 PM TELEGRAPH OFFICE MANAGER The CepLatimer Educationid Xpert C. difficile Assay, performed on the [employer] GeneXpert?? Instrument Systems, is a qualitative in [...] - MICRO GENERAL ORDERABLES Performing Organization Address City/[facility]/ZIP Co de Phone Number [facility] Infectious Diseases Diagnostic Lab (IDDL) [address] [facility], [address] [place] [address], [place] [phone] documented in this encounter Visit Diagnoses Diagnosis Diarrhea, unspecified type documented in this encounter Additional Health Concerns Infection Onset Date Last Indicated Resolved Time Rule Out C-difficile 09/27/2021 09/27/2021 021 2:32 PM TELEGRAPH OFFICE MANAGER Rule Out C-difficile 01/14/2022 01/14/2022 022 6:15 PM CDT documented as of this encounter Care Teams Branch Or Department Chief Librarian Relationship Specialty [place] [address] [place] [address] PCP - General 07/03/21 07/27/22 [place] [address] [place] [address] PCP - General 07/28/22 [place] [address] [address], [place] [address] Assigned Gastroenterology Provider 05/07/21 08/30/[address] [place] [address] Registered Dietitian Dietitian, Registered 07/20/21 Jon Eng MD [address] [place] [address] [id number] [place] [address] Assigned Surgical Provider 04/14/22 documented as of this encounter
--- OUTSIDE RECORDS SUMMARY | 2024-03-18 15:23 | XMS_ITS | Encounter Summary ---
Author Organization [place] Address [address] [facility] [place] [address] Care Team Providers Care Warehouseman Name Role Phone [facility], [facility] Primary Care Provider + Hakan Barton MD Unavailable [phone] Venus Barnes MD Primary Care Provider [phone] Unavailable [phone] Jon Eng MD Unavailable [phone] Willam Jaramillo MD Primary Care Provider Encounter [...] Out C-difficile 09/27/2021 09/27/2021 021 2:32 PM CERTIFIED PHARMACIST ASSISTANT Rule Out C-difficile 01/14/2022 01/14/2022 022 6:15 PM CDT documented as of this encounter Care Teams Warehouseman Relationship Specialty Start Date End Date [facility] [id number] [place] [address] PCP - General 07/05/16 07/02/21 [place] [address] [place] [address] PCP - General 07/03/21 07/27/22 [place] [address] [place] [address] PCP - General 07/28/22 [place] [address] [address] [place] [address] Assigned Gastroenterology Provider 05/07/21 08/30/23 Shar Bartlett, TAYLA [address] [place] [address] Registered Dietitian Dietitian, Registered 07/20/21 Jon Eng MD [address] [place] [address] [id number] [place], [place] [id number] Assigned Surgical Provider 04/14/22 documented as of this encounter
--- OUTSIDE RECORDS SUMMARY | 2024-03-18 15:23 | XMS_ITS | Encounter Summary ---
Author Organization [place] Address [address] [facility] [place] [address] Care Team Providers Care Data Systems Analyst Name Role Phone Shar Bartlett [address] Unavailable [phone] Willam Jaramillo MD Primary Care Provider Encounter Details Date Type Department Care Team (Latest Contact Info) Description 01/20/2024 [facility] [address] 4[address] [place] [address] [place] [address] [address], [place] [address] Recurrent Clostridioides difficile diarrhea Social History Tobacco Use Types Packs/Day Years [...] diarrhea documented in this encounter Care Teams Data Systems Analyst Relationship Specialty Start [place] [address] [place], [place] [id number] PCP - General 07/28/22 Shar Bartlett, RD [address] [place] [address] Registered Dietitian Dietitian, Registered 07/20/21 documented as of this encounter
--- OUTSIDE RECORDS SUMMARY | 2024-03-18 15:23 | XMS_ITS | Referral Summary ---
Author Organization [place] Address [address] [facility] [place] [address] Care Team Providers Care Emergency Management Coordinator Name Role Phone Shar Bartlett [address] RD Unavailable [phone] Willam Jaramillo MD Primary Care Provider Encounters Date Type Department Care Team Description 01/20/[address] [facility] G[facility] [address] [place] [address] Hakan Barton MD Recurrent Clostridioides difficile diarrhea from Last 3 Months Allergies Active Allergy [...] Overview: Added automatically from request for surgery [id number] Diverticulitis of large intestine with abscess 0 [...] on file Medical Devices Implanted Type Area Manager Material Device Identifier Shelf Expiration Date Model / Serial / Lot Whistle Tip 5fr X 70cm, Right Implanted:Qty: 1 on 12/13/2020 by Jerrod Jose MD at [facility] Right: Ureter BARD 01/11/2022 [id number] / / [id number] Whistle Tip 5 Fr X 70cm, Left Implanted:Qty: 1 on 12/13/2020 by Jerrod Jose MD at [facility] Left: Ureter BARD 01/11/2022 [id number] / / [id number] Explanted Type Area Manager Material Device Identifier Shelf Expiration Date Model / Serial / Lot Bard Whistle Tip 5fr. X 70 Cm Implanted:Qty: 1 Explanted:Qty: 1 on 04/21/2020 at [facility] Right: Ureter BARD 08/10/2020 [id number] / / [id number] Bard Whistle Tip 5 Fr. X 70 Cm Implanted:Qty: 1 Explanted:Qty: 1 on 04/21/2020 at [facility] Left: Ureter BARD 01/11/2022 [id number] / / [id number] Procedures Procedure Name Priority Date/Time Associated Diagnosis [...] MD LAB - BLOOD [facility] Acute Care Lab [address], [address] [place] [address], [facility] [phone] * COLONOSCOPY (07/03/2021 1:54 PM CDT) COLONOSCOPY [address] [address] [phone] ? Endoscopy Department ___ Patient Name: Racheal [...] Any antibiotic prescription should be cleared with . ? Mick ? Signed Electronically by Hakan [...] the exam. Signature of teaching physician Eve Barotn MD RADIOLOGY RESULTS 07/03/2021 1:54 PM CDT Tamiko Ruiz MD PROCEDURES RADIOLOGY RESULTS * Stool: occult blood (04/07/2021 1:34 PM CDT) Occult Blood Negative NEG^Negati ve 04/07/2021 1:[address] [facility] Stool 04/07/2021 1:34 PM CDT 04/07/2021 1:50 PM CDT Hina Leggett DO LAB - STOOLS ORDER VIOLET [facility] [address] [place], [place] [address] [phone] from Last 3 Months or Most Recently Relevant to Health Maintenance Advance Directives For more information, please contact: [phone] * Full Code (Latest Code Status on [...] patie nt/ legal decision maker Care Teams Emergency Management Coordinator Relationship Specialty Start [place] [address] [place] [address] PCP - General 07/28/22 Shar Bartlett, RD [address] [place] [address] Registered Dietitian Dietitian, Registered 07/20/21
--- OUTSIDE RECORDS SUMMARY | 2024-03-18 15:23 | XMS_ITS | Encounter Summary ---
Author Organization [place] Address [address] [facility] [place] [address] Care Team Providers Care Ethernet Network Architect Name Role Phone [facility], Kuldeep Humbird Primary Care Provider + Hakan Barton MD Unavailable [phone] Venus Barnes MD Primary Care Provider [phone] Unavailable [phone] Jon Eng MD Unavailable [phone] Willam Jaramillo MD Primary Care Provider Encounter Details Date Type Department Care Team (Late st Contact Info) Description 05/22/2021 [facility] [address] [place] [address] Marleny Keller Diarrhea, unspecified type Social History [...] LABORATORY - 05/22/2021 9:15 PM CDT The BAC ON TRAC Xpert C. difficile Assay, performed on the InterludeXPigmata Media?? Instrument Systems, is a qualitative in vitro [...] - MICRO GENERAL ORDERABLES [facility] Infectious Diseases Diagnostic Lab (IDDL) [address] [facility], [address] [place] [address], [facility] [phone] documented in this encounter Visit Diagnoses Diagnosis [...] Out C-difficile 09/27/2021 09/27/2021 021 2:32 PM JIGGER ARTISAN Rule Out C-difficile 01/14/2022 01/14/2022 022 6:15 PM CDT documented as of this encounter Care Teams Ethernet Network Architect Relationship Specialty Start Date End Date [facility] [address] [place] [address] PCP - General 07/05/16 07/02/21 [place] [address] [place] [address] PCP - General 07/03/21 07/27/22 [place] [address] [place] [address] PCP - General 07/28/22 [place] [address] [address] [place] [address] Assigned Gastroenterology Provider 05/07/21 08/30/23 Shar Bartlett, TAYLA [address] [place] [address] Registered Dietitian Dietitian, Registered 07/20/21 Jon Eng MD [address] [place] [address] [id number] [place], [place] [address] Assigned Surgical Provider 04/14/22 documented as of this encounter
--- OUTSIDE RECORDS SUMMARY | 2024-03-18 15:23 | XMS_ITS | Encounter Summary ---
Author Organization [place] Address [address] [facility] [place] [address] Care Team Providers Care Aircraft Inspection Record Clerk Name Role Phone Hakan Barton MD Unavailable [phone] Venus Barnes MD Primary Care Provider [phone] Unavailable [phone] Jon Eng MD Unavailable [phone] Willam Jaramillo MD Primary Care Provider Encounter Details Date Type Department Care Team (Late st Contact Info) Description 07/18/2021 [facility] [address] [place] [address] Jessica Davis RN Diarrhea, unspecified type Social [...] - 49.9 mg/kg 07/19/2021 1:06 PM CDT [facility] Comment:Normal Stool RECTAL CONTENTS / Unknown Non-blood Collection / Unknown 07/18/2021 4:29 PM CDT 07/18/2021 4:29 PM CDT Hakan Barton MD LAB - STOOLS ORDERIrina CROWELL [facility] Specialty Core Lab [address] [facility], [address] [place] [address], [facility] [phone] * (ABNORMAL) Clostridium difficile Toxin B PCR [...] LABORATORY - 07/18/2021 9:41 PM CDT The CepApplied Superconductorid Xpert C. difficile Assay, performed on the Genelabs TechnologiesXMygeni?? Instrument Systems, is a qualitative in vitro [...] of CDI. Hakan Barton MD LAB - DES LACS GENERAL ORDERABLES [facility] Infectious Diseases Diagnostic Lab (IDDL) [address] [facility], [address] [place] [address], [facility] [phone] documented in this encounter Visit Diagnoses Diagnosis Diarrhea, unspecified type documented in this encounter Additional Health Concerns Infection Onset Date Last Indicated Resolved Time C-difficile 04/26/2021 07/18/2021 08/17/2021 11:3 9 PM CDT Rule Out C-difficile 07/18/2021 07/18/2021 021 9:41 PM CDT Rule Out C-difficile 09/27/2021 09/27/2021 021 2:32 PM DIRECTOR CASE MANAGEMENT Rule Out C-difficile 01/14/2022 01/14/2022 022 6:15 PM CDT documented as of this encounter Care Teams Aircraft Inspection Record Clerk Relationship Specialty [place] [address] [place] [address] PCP - General 07/03/21 07/27/22 [place] [address] [place] [address] PCP - General 07/28/22 [place] [address] [place] [address] Assigned Gastroenterology Provider 05/07/21 08/30/[address] [place] [address] Registered Dietitian Dietitian, Registered 07/20/21 Jon Eng MD [address] [address], [place] [address] Assigned Surgical Provider 04/14/22 documented as of this encounter
--- OUTSIDE RECORDS SUMMARY | 2024-03-18 15:23 | XMS_ITS | Encounter Summary ---
Author Organization [place] Address [address] [facility] [place] [address] Care Team Providers Care Labourers Name Role Phone [facility], Kuldeep Schertz Primary Care Provider + Hakan Barton MD Unavailable Venus Barnes MD Primary Care Provider [phone] Unavailable [phone] Jon Eng MD Unavailable [phone] Willam Jaramillo MD Primary Care Provider Encounter Details Date Type Department Care Team (Late st Contact Info) Description 06/20/2021 [facility] [address] [place] [address] Alexandria Dwons Diarrhea, unspecified type Social History Tobacco Use [...] - 49.9 mg/kg 06/21/2021 2:08 PM CDT [facility] Comment:Normal Stool RECTAL CONTENTS / Unknown Non-blood Collection / Unknown 06/20/2021 11:00 AM CDT 06/20/2021 11:41 AM CDT Hakan Barton MD LAB - STOOLS NEHAL CROWELL [facility] Organization Address City/State/ZIP Co de Phone Number [facility] Specialty Core Lab [address] [facility], [address] [address] [phone] * (ABNORMAL) Clostridium difficile Toxin B PCR (06/20/2021 11:00 AM CDT) Pathologist [facility] C Difficile Toxin B by PCR Positive( [...] LABORATORY - 06/20/2021 3:31 PM CDT The CepMoney On Mobile Xpert C. difficile Assay, performed on the BluelightApp?? Instrument Systems, is a qualitative in vitro [...] of CDI. Hakan Barton MD LAB - [place] GENERAL ORDERABLES [facility] Infectious Diseases Diagnostic Lab (IDDL) [address] [facility], [address] [place] [address], [facility] [phone] documented in this encounter Visit Diagnoses Diagnosis Diarrhea, unspecified type documented in this encounter Additional Health Concerns Infection Onset Date Last Indicated Resolved Time C-difficile 04/26/2021 07/18/2021 08/17/2021 11:3 9 PM CDT Rule Out C-difficile 06/20/2021 06/20/2021 021 3:31 PM CDT Rule Out C-difficile 07/18/2021 07/18/2021 021 9:41 PM CDT Rule Out C-difficile 09/27/2021 09/27/2021 021 2:32 PM MEDICAL CHARGE ENTRY SPECIALIST Rule Out C-difficile 01/14/2022 01/14/2022 022 6:15 PM CDT documented as of this encounter Care Teams Labourers Relationship Specialty Start Date End Date [address] [phone] PCP - General 07/05/16 07/02/21 Venus Barnes MD [address] [place] [address] PCP - General 07/03/21 07/27/22 [place] [address] [place] [address] PCP - General 07/28/22 [place] [address] [place] [address] Assigned Gastroenterology Provider 05/07/21 08/30/23 Shar Bartlett, TAYLA [address] [place], [place] [address] Registered Dietitian Dietitian, Registered 07/20/21 Jon Eng MD [address] [facility] [id number] [place], [place] [address] Assigned Surgical Provider 04/14/22 documented as of this encounter
--- OUTSIDE RECORDS SUMMARY | 2024-03-18 15:23 | XMS_ITS | Encounter Summary ---
Author Organization [place] Address [address] [facility] [place] [address] Care Team Providers Care Permit Review Assistant Name Role Phone [facility] Primary Care Provider + Hakan Barton MD Unavailable [phone] Venus Barnes MD Primary Care Provider [phone] Unavailable [phone] Jon Eng MD Unavailable [phone] Willam Jaramillo MD Primary Care Provider Encounter [...] Out C-difficile 09/27/2021 09/27/2021 021 2:32 PM AP PROCESSOR Rule Out C-difficile 01/14/2022 01/14/2022 022 6:15 PM CDT documented as of this encounter Care Teams Permit Review Assistant Relationship Specialty Start Date End Date [address] [address] PCP - General 07/05/16 07/02/21 [place] [address] [place] [address] PCP - General 07/03/21 07/27/22 [place] [address] [place] [address] PCP - General 07/28/22 [place] [address] [place] [address] Assigned Gastroenterology Provider 05/07/21 08/30/[address] [place] [address] Registered Dietitian Dietitian, Registered 07/20/21 Jon Eng MD [address] [place] [address] [id number] [place] [address] Assigned Surgical Provider 04/14/22 documented as of this encounter
--- NOTE | 2024-03-18 16:00 | CRLHL7_ITS ---
For Patients: As a result of the Century Cures Act, medical imaging exams and procedure reports are released immediately into your electronic medical record. You may view this report before your referring provider. If you have questions, please contact your health care provider. Indication Headaches. Lung cancer. TECHNIQUE: Multiplanar multisequence MRI imaging of the brain prior to and following intravenous contrast. COMPARISON: MRI brain 04/19/2023. FINDINGS: Mild diffuse cerebral volume loss. No mass effect or midline shift. Mild FLAIR hyperintensities in the supratentorial white matter, typical for chronic microvascular ischemic changes. No pathologic intracranial enhancement. No intracranial hemorrhage or pathologic extra-axial fluid collection. No diffusion restriction to suggest acute infarction. The major arterial flow voids of the skullbase are preserved. The globes are symmetric. The paranasal sinuses are well aerated. Minimal right mastoid fluid. IMPRESSION: No acute intracranial abnormality or evidence for intracranial metastatic disease. No significant change compared to the prior MRI. Dictated by Tobin Whitman MD @ 03/19/2024 11:27:37 AM (Electronically Signed)
== END 2024-03-18 15:20 | disposition home or self-care (01) ==
PROVIDERS: PCP Family Medicine; Visit Provider Nurse Practitioner Adult Health
DX: R51.9 Headache, unspecified (principal); C34.32 Malignant neoplasm of lower lobe, left bronchus or lung
CPT/HCPCS: 70553; A9575

== ENCOUNTER 2024-03-23 12:26 | Outpatient (CLI) | payer MEDICARE, OTHER, SELFPAY ==
--- OUTSIDE RECORDS SUMMARY | 2024-03-23 12:28 | XMS_ITS ---
Author Organization [facility] Address [address] [place] [address] Care Team Providers Care Religion Department Chair Name Role Phone Elsewhere, Pcp Primary Care [...] Treated Prescribed Fraction Dose Prescribed Total Dose [id number] 07/03/2023 49 30 of 30 200 cGy 6,000 cGy Reference Point Last Treated On Elapsed Days Session Dose Total Dose [id number] 07/03/2023 49 200 cGy 6,000 cGy
--- OUTSIDE RECORDS SUMMARY | 2024-03-23 12:28 | XMS_ITS | Referral Summary ---
Author Organization [facility] Address [address] [place] [address] Care Team Providers Care Pearl Technician Name Role Phone Elsewhere, Pcp Primary Care Provider Unavailabl e Source Comments Patient records contain information from all sites at [facility]. For routine questions regarding patient records, call [phone] during business hours, M-F 8:00 AM - 5:00 PM Central Time. Record requests for emergency care only can be directed to [phone] at any time.[facility] Encounters Date Type Department Care Team Description 01/09/2024 Clinical Communication Department of Radiation Oncology in [address] [address] Hanh Marquez M.D. 01/09/2024 8:51 AM CDT - 01/09/2024 9:43 AM CDT Hospital Encounter Department of Radiation Oncology in [address] [address] Hanh Marquez M.D. Malignant Neoplasm Of Lung [...] Comments Blood Pressure 153/69 08/28/2023 11:29 AM FOUNDATION DRILL OPERATOR HELPER Pulse 66 08/28/2023 11:29 AM FOUNDATION DRILL OPERATOR HELPER Temperature 36.5 ??C (97.7 ??F) 08/28/2023 11:[address] Respiratory Rate - - Oxygen Saturation - - Inhaled Oxygen Concentration - - Weight 44.7 kg (98 lb 8.7 oz) 08/28/2023 11:29 A M FOUNDATION DRILL OPERATOR HELPER Height 166 cm (5' 5.35) 12/09/2012 8:39 AM FOUNDATION DRILL OPERATOR HELPER Body Mass Index - - Plan of Treatment Not on file Medical Devices Implanted Type Area Granite Polisher Device Identifier Shelf Expiration Date Model / Serial / Lot Hardware E.G. Pins/Screws/R ods Hardware e.g. pins/screws/ rods Duodenum Description:Snook Procedures Procedure Name Priority Date/Time Associated Diagnosis [...] Siva Philip M.D. GI PROCEDURE ORDERA BLES [facility] [address] [place] [address] from Last 3 Months or Most Recently Relevant to Health Maintenance Care Teams Pearl Technician Relationship Specialty Start Date End Date Elsewhere, Pcp PCP - General Family Medicine 05/07/23
--- OUTSIDE RECORDS SUMMARY | 2024-03-23 12:28 | XMS_ITS | Encounter Summary ---
Author Organization [facility] Address [address] [place] [address] Care Team Providers Care Oil Prospecting Observer Name Role Phone Elsewhere, Pcp Primary Care Provider Unavailabl e Reason for Referral * Outpatient (Routine) - Authorized Specialty Diagnoses / Procedures Referred By Nicoleac t Referred To Contact Radiation Oncology Hanh Marquez M.D. [address] [place] [address] [facility] Referral ID Status Reason Start Date Expiration Date V isits Requested Visits Authorized [id number] Authorized 01/09/2024 07/10/2025 1 1 * Outpatient (Routine) - Closed Specialty Diagnoses / Procedures Referred By Vaibhav braden Referred To Contact Radiation Oncology Hanh Marquez M.D. [address] [place] [address] [facility] Referral ID Status Reason Start Date Expiration Date Visits Re quested Visits Authorized [id number] Closed 09/24/2023 09/23/2026 1 1 Scheduling Instructions Please schedule after CT chest at [facility]; please obtain the images prior to my phone visit (Can you write that in the notes?) Thanks! Reason for Visit * Outpatient (Routine) - Closed Specialty Diagnoses / Procedures Referred By Contac t Referred To Contact Radiation Oncology Hanh Marquez M.D. [address] [place] [address] [facility] Region Referral ID Status Reason Start Date Expiration Date Visits Re quested Visits Authorized [id number] Closed 09/24/2023 09/23/2026 1 1 Encounter Details Date Type Department Care Team (Latest Contact Info) Description 01/09/2024 8:51 AM CDT - 01/09/2024 9:43 AM CDT Hospital Encounter Department of Radiation Oncology in [place], [place] [address] [place] [phone] Hanh Marquez M.D. [address] [place] [address] Malignant Neoplasm Of Lung Adenocarcinoma Right (HCC) [...] audio/video technology by Hanh Marquez M.D. in [facility] to the patient in Patient's Home CHIEF [...] Other Patient presented to emergency room in [place], [place] for elevated blood pressure at home, [...] 04/26/[address] Zahira Cortez, [place] [facility]. Recommended concurrent chemoradiation with weekly Carbo/Taxol. 05/08/2023 Other Video visit with Medical Oncology at [place] in [place]. Agreed with the diagnosis and staging of [id number] lung cancer as first described by Dr. [...] lymph nodes. 09/19/2023 Critical Imaging PET/CT at [facility] demonstrated majority of pulmonary consolidations have resolved, [...] about a month ago she saw a school counselor who put her on prednisone 40 mg [...] 2023 through June 27, 2023 hospitalization at [facility] due to pneumonia and A. fib I [...] M.D. 01/09/2024 9:28 AM CDT Radiation Oncology [facility] Rad[facility] Therapy Center [address] [place] [address] documented in this encounter Plan of Treatment [...] Primary documented in this encounter Care Teams Oil Prospecting Observer Relationship Specialty Start Date End Date Elsewhere, Pcp PCP - General Family Medicine 05/07/23 documented as of this encounter
--- OUTSIDE RECORDS SUMMARY | 2024-03-23 12:28 | XMS_ITS | Encounter Summary ---
Author Organization [facility] Address [address] [place] [address] Care Team Providers Care Tack Cutter Name Role Phone Elsewhere, Pcp Primary Care Provider Unavailabl e Encounter Details Date Type Department Care Team (Late st Contact Info) Description 01/09/2024 Clinical Communication Department of Radiation Oncology in [place], [place] [address] [place] [address] Hanh Marquez M.D. [address] [place] [address] Social History Tobacco Use Types Packs/Day Years [...] call into her medical oncologist as well. [phone] documented in this encounter Plan of Treatment Not on file documented as of this encounter Visit Diagnoses Not on filedocumented in this encounter Care Teams Tack Cutter Relationship Specialty Start Date End Date Elsewhere, Pcp PCP - General Family Medicine 05/07/23 documented as of this encounter
--- OUTSIDE RECORDS SUMMARY | 2024-03-23 12:28 | XMS_ITS | Clinical Summary ---
Author Organization [facility] Address [address] [place] [address] Phone Care Team Providers Care Ruby On Rails Web Developer Name Role Phone Tamiko Ruiz MD Primary Care Provider [phone] Allergies Active Allergy Reactions Criticality Noted Date [...] Overview: Added automatically from request for surgery [id number] Diverticulitis of large intestine 04/21/2020 Anxiety 12/09/2019 [...] Ended) 2024 08/02/20 15, 10/29/2012 Care Teams Ruby On Rails Web Developer Relationship Specialty Start Date End Date Tamiko Ruiz MD COLON & RECTAL SURG [address] [place], [place] [address] PCP - General 03/16/21
--- OUTSIDE RECORDS SUMMARY | 2024-03-23 12:28 | XMS_ITS | Clinical Summary ---
Author Organization [facility] Address [address] [place] [address] Care Team Providers Care Aws Solution Architect Name Role Phone Shar Bartlett RD Unavailable [phone] Willam Jaramillo MD Primary Care Provider [...] Overview: Added automatically from request for surgery [id number] Diverticulitis of large intestine with abscess 0 04/21/2020 Diverticulitis of small intestine with abscess 0 04/19/2020 Acute diverticulitis 03/31/2020 Diverticulitis 03/28/2020 Encounters Date Type Department Care Team Description 01/20/2024 Orders Only [facility] Gastroenterology Clinic [address]th [place] [address] Hakan Barton MD Recurrent Clostridioides [...] this topic Medical Devices Implanted Type Area Social Media Project Manager Device Identifier Shelf Expiration Date Model / Serial / Lot Whistle Tip 5fr X 70cm, Right Implanted:Qty: 1 on 12/13/2020 by Jerrod Jose MD at [facility] Right: Ureter BARD 01/11/2022 [id number] / / [id number] Whistle Tip 5 Fr X 70cm, Left Implanted:Qty: 1 on 12/13/2020 by Jerrod Jose MD at [facility] Left: Ureter BARD 01/11/2022 [id number] / / [id number] Explanted Type Area Social Media Project Manager Device Identifier Shelf Expiration Date Model / Serial / Lot Bard Whistle Tip 5fr. X 70 Cm Implanted:Qty: 1 Explanted:Qty: 1 on 04/21/2020 at [facility] Right: Ureter BARD 08/10/2020 [id number] / / [id number] Bard Whistle Tip 5 Fr. X 70 Cm Implanted:Qty: 1 Explanted:Qty: 1 on 04/21/2020 at [facility] Left: Ureter BARD 01/11/2022 [id number] / / [id number] Procedures Procedure Name Priority Date/Time Associated Diagnosis Comments BASIC METABOLIC PANEL STAT 05/02/2023 3:[address] CHEST W/O CONTRAST Routine 04/12/2023 6:52 AM CDT COLONOSCOPY Routine 07/03/2021 1:54 PM CDT OCCULT BLOOD STOOL STAT 04/07/2021 1: 34 PM CDT from Last 3 Months or Most Recently Relevant to Health Maintenance Results * (ABNORMAL) Basic metabolic panel (05/02/2023 3:17 PM CDT) [facility] Signature Sodium 140 136 - 145 [...] MD LAB - BLOOD [facility] Acute Care Lab [address], [address] [place] [address], [facility] [phone] * COLONOSCOPY (07/03/2021 1:54 PM CDT) COLONOSCOPY [address] [address] [phone] ? Endoscopy Department ___ Patient Name: Racheal [...] of the exam. Signature of teaching physician [id number] Barton MD RADIOLOGY RESULTS 07/03/2021 1:54 PM CDT Tamiko Ruiz MD PROCEDURES RADIOLOGY RESULTS * Stool: occult blood (04/07/2021 1:34 PM CDT) Occult Blood Negative NEG^Negati ve 04/07/2021 1:57 PM CDT [facility] Stool 04/07/2021 1:34 PM CDT 04/07/2021 1:50 PM CDT Hina Leggett DO LAB - STOOLS ORDER VIOLET [facility] [address] [place], [place] [address] [phone] from Last 3 Months or Most Recently Relevant to Health Maintenance Advance Directives For more information, please contact: [phone] * Full Code (Latest Code Status on [...] patie nt/ legal decision maker Care Teams Aws Solution Architect Relationship Specialty Start [place] [address] [place] [address] PCP - General 07/28/[address] [place] [address] Registered Dietitian Dietitian, Registered 07/20/21
--- OUTSIDE RECORDS SUMMARY | 2024-03-23 12:28 | XMS_ITS ---
Author Organization [facility] Address [address] [place] [address] Care Team Providers Care In Flight Technician Name Role Phone Unavailable Unavailable Unavailable Surgery Details Not on file Complications Check Surgery Details section. Procedure Estimated Blood Loss Check Surgery Details section. Procedure Findings Check Surgery Details section. Procedure Specimens Taken Check Surgery Details section.
--- OUTSIDE RECORDS SUMMARY | 2024-03-23 12:28 | XMS_ITS | Clinical Summary ---
Author Organization [facility] Address [address] [place] [address] Care Team Providers Care Golf Course Manager Name Role Phone Elsewhere, Pcp Primary Care Provider Unavailabl e Source Comments Patient records contain information from all sites at [facility]. For routine questions regarding patient records, call [phone] during business hours, M-F 8:00 AM - 5:00 PM Central Time. Record requests for emergency care only can be directed to [phone] at any time.[facility] Allergies Active Allergy Reactions Criticality Noted Date [...] Hospital Encounter Department of Radiation Oncology in [address] [address] Hanh Marquez M.D. Malignant Neoplasm Of Lung Adenocarcinoma Right (HCC) (Primary Dx) 01/09/2024 Clinical Communication Department of Radiation Oncology in [address] [address] Hanh Marquez M.D. from Last 3 Months [...] Comments Blood Pressure 153/69 08/28/2023 11:29 AM STRAP CUTTER Pulse 66 08/28/2023 11:29 AM STRAP CUTTER Temperature 36.5 ??C (97.7 ??F) 08/28/2023 11:[address] Respiratory Rate - - Oxygen Saturation - - Inhaled Oxygen Concentration - - Weight 44.7 kg (98 lb 8.7 oz) 08/28/2023 11:29 A M STRAP CUTTER Height 166 cm (5' 5.35) 12/09/2012 8:39 AM STRAP CUTTER Body Mass Index - - Plan of [...] this topic Medical Devices Implanted Type Area County Manager Device Identifier Shelf Expiration Date Model [...] Siva Philip M.D. GI PROCEDURE ORDERA BLES [facility] [address] [place] [address] from Last 3 Months or Most Recently Relevant to Health Maintenance Care Teams Golf Course Manager Relationship Specialty Start Date End Date Elsewhere, Pcp PCP - General Family Medicine 05/07/23
--- OUTSIDE RECORDS SUMMARY | 2024-03-23 12:29 | XMS_ITS | Encounter Summary ---
Author Organization [facility] Address [address] [facility] [place] [address] Care Team Providers Care Clipping Marker Name Role Phone Hakan Barton MD Unavailable [phone] Venus Barnes MD Primary Care Provider [phone] Unavailable [phone] Jon Eng MD Unavailable [phone] Willam Jaramillo MD Primary Care Provider Encounter Details Date Type Department Care Team (Late st Contact Info) Description 07/18/2021 [facility] [address] [place] [address] Jessica Davis RN Diarrhea, unspecified type Social [...] - 49.9 mg/kg 07/19/2021 1:06 PM CDT [facility] Comment:Normal Stool RECTAL CONTENTS / Unknown Non-blood Collection / Unknown 07/18/2021 4:29 PM CDT 07/18/2021 4:29 PM CDT Hakan Barton MD LAB - STOOLS ORDERIrina CROWELL [facility] Specialty Core Lab [address] [facility], [address] [place] [address], [facility] [phone] * (ABNORMAL) Clostridium difficile Toxin B PCR [...] LABORATORY - 07/18/2021 9:41 PM CDT The CepHydroPoint Data Systemsid Xpert C. difficile Assay, performed on the The Daily CallerXbackstitch?? Instrument Systems, is a qualitative in vitro [...] of CDI. Hakan Barton MD LAB - [place] GENERAL ORDERABLES [facility] Infectious Diseases Diagnostic Lab (IDDL) [address] [facility], [address] [place] [address], [facility] [phone] documented in this encounter Visit Diagnoses Diagnosis Diarrhea, unspecified type documented in this encounter Additional Health Concerns Infection Onset Date Last Indicated Resolved Time C-difficile 04/26/2021 07/18/2021 08/17/2021 11:3 9 PM CDT Rule Out C-difficile 07/18/2021 07/18/2021 021 9:41 PM CDT Rule Out C-difficile 09/27/2021 09/27/2021 021 2:32 PM FEATHER EDGER Rule Out C-difficile 01/14/2022 01/14/2022 022 6:15 PM CDT documented as of this encounter Care Teams Clipping Marker Relationship Specialty [place] [address] [place] [address] PCP - General 07/03/21 07/27/22 [place] [address] [place] [address] PCP - General 07/28/22 [place] [address] [place] [address] Assigned Gastroenterology Provider 05/07/21 08/30/[address] [place] [address] Registered Dietitian Dietitian, Registered 07/20/21 Jon Eng MD [address] [id number], [place] [address] Assigned Surgical Provider 04/14/22 documented as of this encounter
--- OUTSIDE RECORDS SUMMARY | 2024-03-23 12:29 | XMS_ITS | Encounter Summary ---
Author Organization [facility] Address [address] [facility] [place] [address] Care Team Providers Care Dice Manager Name Role Phone [facility] [place] Primary Care Provider + Hakan Barton MD Unavailable Venus Barnes MD Primary Care Provider [phone] Unavailable [phone] Jon Eng MD Unavailable [phone] Willam Jaramillo MD Primary Care Provider Encounter Details Date Type Department Care Team (Late st Contact Info) Description 06/20/2021 [facility] [address] [place] [address] [place] Diarrhea, unspecified type Social History [...] - 49.9 mg/kg 06/21/2021 2:08 PM CDT [facility] Comment:Normal Stool RECTAL CONTENTS / Unknown Non-blood Collection / Unknown 06/20/2021 11:00 AM CDT 06/20/2021 11:41 AM CDT Hakan Barton MD LAB - STOOLS NEHAL CROW[facility] Organization Address City/State/ZIP Co de Phone Number [facility] Specialty Core Lab [address] [facility], [address] [address] [phone] * (ABNORMAL) Clostridium difficile Toxin B PCR (06/20/2021 11:00 AM CDT) Pathologist [facility] C Difficile Toxin B by PCR Positive( [...] LABORATORY - 06/20/2021 3:31 PM CDT The CepCrowdComfort Xpert C. difficile Assay, performed on the Roll20?? Instrument Systems, is a qualitative in vitro [...] of CDI. Hakan Barton MD LAB - [place] GENERAL ORDERABLES [facility] Infectious Diseases Diagnostic Lab (IDDL) [address] [facility], [address] [place] [address], [facility] [phone] documented in this encounter Visit Diagnoses Diagnosis Diarrhea, unspecified type documented in this encounter Additional Health Concerns Infection Onset Date Last Indicated Resolved Time C-difficile 04/26/2021 07/18/2021 08/17/2021 11:3 9 PM CDT Rule Out C-difficile 06/20/2021 06/20/2021 021 3:31 PM CDT Rule Out C-difficile 07/18/2021 07/18/2021 021 9:41 PM CDT Rule Out C-difficile 09/27/2021 09/27/2021 021 2:32 PM INSERT OPERATOR Rule Out C-difficile 01/14/2022 01/14/2022 022 6:15 PM CDT documented as of this encounter Care Teams Dice Manager Relationship Specialty Start Date End Date [address] [phone] PCP - General 07/05/16 07/02/21 Venus Barnes MD [id number] [place] [address] PCP - General 07/03/21 07/27/22 [place] [address] [place] [address] PCP - General 07/28/22 [place] [address] [place] [address] Assigned Gastroenterology Provider 05/07/21 08/30/23 Shar Bartlett, TAYLA [address] [place], [place] [address] Registered Dietitian Dietitian, Registered 07/20/21 Jon Eng MD [address] [facility] [id number] [place] [facility], [place] [id number] Assigned Surgical Provider 04/14/22 documented as of this encounter
--- OUTSIDE RECORDS SUMMARY | 2024-03-23 12:29 | XMS_ITS | Referral Summary ---
Author Organization [facility] Address [address] [facility] [place] [address] Care Team Providers Care Rat Trapper Name Role Phone Shar Bartlett [address] Unavailable [phone] Willam Jaramillo MD Primary Care Provider Encounters Date Type Department Care Team Description 01/20/2024 Orders Only [facility] Gastroenterology Clinic [address] [place] [address] Hakna Barton MD Recurrent Clostridioides difficile diarrhea from [...] Overview: Added automatically from request for surgery [id number] Diverticulitis of large intestine with abscess 0 [...] on file Medical Devices Implanted Type Area Nuisance Wildlife Trapper Device Identifier Shelf Expiration Date Model / Serial / Lot Whistle Tip 5fr X 70cm, Right Implanted:Qty: 1 on 12/13/2020 by Jerrod Jose MD at [facility] Right: Ureter BARD 01/11/2022 [id number] / / [id number] Whistle Tip 5 Fr X 70cm, Left Implanted:Qty: 1 on 12/13/2020 by Jerrod Jose MD at [facility] Left: Ureter BARD 01/11/2022 [id number] / / [id number] Explanted Type Area Nuisance Wildlife Trapper Device Identifier Shelf Expiration Date Model / Serial / Lot Bard Whistle Tip 5fr. X 70 Cm Implanted:Qty: 1 Explanted:Qty: 1 on 04/21/2020 at [facility] Right: Ureter BARD 08/10/2020 [id number] / / [id number] Bard Whistle Tip 5 Fr. X 70 Cm Implanted:Qty: 1 Explanted:Qty: 1 on 04/21/2020 at [facility] Left: Ureter BARD 01/11/2022 [id number] / / [id number] Procedures Procedure Name Priority Date/Time Associated Diagnosis [...] MD LAB - BLOOD [facility] Acute Care Lab [address], [address] [place] [address], [facility] [phone] * COLONOSCOPY (07/03/2021 1:54 PM CDT) COLONOSCOPY [address] [address] [phone] ? Endoscopy Department ___ Patient Name: Racheal [...] Signature of teaching physician Eve Barton MD RADIOLOGY RESULTS 07/03/2021 1:54 PM CDT Tamiko Ruiz MD PROCEDURES RADIOLOGY RESULTS * Stool: occult blood (04/07/2021 1:34 PM CDT) Occult Blood Negative NEG^Negati ve 04/07/2021 1:57 PM CDT [facility] Stool 04/07/2021 1:34 PM CDT 04/07/2021 1:50 PM CDT Hina Leggett DO LAB - STOOLS ORDER VIOLET [facility] [address] [place], [place] [address] [phone] from Last 3 Months or Most Recently Relevant to Health Maintenance Advance Directives For more information, please contact: [phone] * Full Code (Latest Code Status on [...] patie nt/ legal decision maker Care Teams Rat Trapper Relationship Specialty Start [place] [address] [place] [address] PCP - General 07/28/22 Shar Bartlett, RD [address] [place] [address] Registered Dietitian Dietitian, Registered 07/20/21
--- OUTSIDE RECORDS SUMMARY | 2024-03-23 12:29 | XMS_ITS | Encounter Summary ---
Author Organization [place] Address [address] [facility] [place] [address] Care Team Providers Care Associate Pathologist Name Role Phone Hakan Barton MD Unavailable [phone] Venus Barnes MD Primary Care Provider [phone] Unavailable [phone] Jon Eng MD Unavailable [phone] Willam Jaramillo MD Primary Care Provider Encounter Details Date Type Department Care Team (Late st Contact Info) Description 09/27/2021 [facility] [address] [place] [address] [place] Downs Diarrhea, unspecified type Social History [...] No / Unsure 09/28/2021 7:30 AM MANAGER ENTERPRISE CONTENT MANAGEMENT documented as of this encounter Plan of Treatment Not on file documented as of this encounter Procedures Procedure Name Priority Date/Time Associated Diagnosis Comments ENTERIC BACTERIA AND VIRUS PANEL BY PCR Routine 09/27/2021 5:45 PM MANAGER ENTERPRISE CONTENT MANAGEMENT Diarrhea, unspecified type CLOSTRIDIUM DIFFICILE TOXIN B Routine 09/27/2021 5:45 PM MANAGER ENTERPRISE CONTENT MANAGEMENT Diarrhea, unspecified type CALPROTECTIN FECES Routine 09/27/2021 5: 45 PM MANAGER ENTERPRISE CONTENT MANAGEMENT Diarrhea, unspecified type ROUTINE PARASITOLOGY EXAM Routine 09/27/2021 5:45 PM MANAGER ENTERPRISE CONTENT MANAGEMENT Diarrhea, unspecified type documented in this encounter Results * Ova and Parasite Exam Routine (09/27/2021 5:45 PM MANAGER ENTERPRISE CONTENT MANAGEMENT) OVA AND PARASITE EXAM Negative Negative JACQUE 09/29/2021 2:20 PM MANAGER ENTERPRISE CONTENT MANAGEMENT [facility] Comment:A single negative sp ecimen does not rule out parasitic infection. Stool RECTAL CONTENTS / Unknown Non-blood Collection / Unknown 09/27/2021 5:45 PM MANAGER ENTERPRISE CONTENT MANAGEMENT 09/28/2021 7:42 AM MANAGER ENTERPRISE CONTENT MANAGEMENT Narrative [facility] - 09/29/2021 2:20 PM MANAGER ENTERPRISE CONTENT MANAGEMENT Cryptosporidium, Cyclospora and Microsporidia are not readily detected by this method. Hakan Barton MD LAB - MICRO GENERAL ORDERABLES [facility] Infectious Diseases Diagnostic Lab (IDDL) [address] [place] [address], [address] [place] [address], [facility] [phone] * Enteric Bacteria and Virus Panel by JAQUI Stool (09/27/2021 5:45 PM MANAGER ENTERPRISE CONTENT MANAGEMENT) Pathologist [facility], [place] Campylobacter group Not Detected Not Detected 09/28/2021 9:23 PM MANAGER ENTERPRISE CONTENT MANAGEMENT [facility] Salmonella species Not Detected Not Detected 09/28/2021 9:23 PM MANAGER ENTERPRISE CONTENT MANAGEMENT [facility] Shigella species Not Detected Not Detected 09/28/2021 9:23 PM MANAGER ENTERPRISE CONTENT MANAGEMENT [facility] Vibrio group Not Detected Not Detected 09/28/2021 9:23 PM MANAGER ENTERPRISE CONTENT MANAGEMENT [facility] Rotavirus Not Detected Not Detected 09/28/2021 9:23 PM MANAGER ENTERPRISE CONTENT MANAGEMENT [facility] Shiga toxin 1 gene Not Detected Not Detected 09/28/2021 9:23 PM MANAGER ENTERPRISE CONTENT MANAGEMENT [facility] Shiga toxin 2 gene Not Detected Not Detected 09/28/2021 9:23 PM MANAGER ENTERPRISE CONTENT MANAGEMENT [facility] Norovirus I and II Not Detected Not Detected 09/28/2021 9:23 PM MANAGER ENTERPRISE CONTENT MANAGEMENT [facility] Yersinia enterocolitica Not Detected Not Detected 09/28/2021 9:23 PM MANAGER ENTERPRISE CONTENT MANAGEMENT [facility] Stool RECTAL CONTENTS / Unknown Non-blood Collection / Unknown 09/27/2021 5:45 PM MANAGER ENTERPRISE CONTENT MANAGEMENT 09/28/2021 7:41 AM MANAGER ENTERPRISE CONTENT MANAGEMENT Narrative [facility] - 09/28/2021 9:23 PM MANAGER ENTERPRISE CONTENT MANAGEMENT Testing performed by multiplexed, qualitative PCR using the Thrupoint Enteric Pathogens Nucleic Acid Test. Results should [...] - MICRO GENERAL ORDERABLES [facility] Infectious Diseases Diagnostic Lab (IDDL) [address] [place] [address], [address] [place] [address], [facility] [phone] * (ABNORMAL) Calprotectin Feces (09/27/2021 5:45 PM MANAGER ENTERPRISE CONTENT MANAGEMENT) Calprotectin Feces 341.0(H) 0.0 - 49.9 mg/kg 09/29/2021 1:35 PM MANAGER ENTERPRISE CONTENT MANAGEMENT SPECIALTY CORE/PROT/EN DO Comment: Abnormal, repeat as [...] Collection / Unknown 09/27/2021 5:45 PM MANAGER ENTERPRISE CONTENT MANAGEMENT 09/28/2021 7:42 AM MANAGER ENTERPRISE CONTENT MANAGEMENT Hakan Barton MD LAB - STOOLS ORDERA BLES Performing Organization Address City/[facility]/ZIP Co de Phone Number SPECIALTY CORE/PROT/ENDO [facility] Specialty Core Lab [address] [facility], [address] [place] [address], [place] [phone] * Clostridium difficile Toxin B PCR (09/27/2021 5:45 PM MANAGER ENTERPRISE CONTENT MANAGEMENT) C Difficile Toxin B by PCR Negative Negative 09/28/2021 2:32 PM MANAGER ENTERPRISE CONTENT MANAGEMENT [facility] Comment:A negative result do es not exclude actual disease due to C. difficile and may be due to improper collection, handling and storage of the specimen or the number of organisms in the specimen is below the detection limit of the assay. Stool RECTAL CONTENTS / Unknown Non-blood Collection / Unknown 09/27/2021 5:45 PM MANAGER ENTERPRISE CONTENT MANAGEMENT 09/28/2021 7:41 AM MANAGER ENTERPRISE CONTENT MANAGEMENT Narrative [facility] - 09/28/2021 2:32 PM MANAGER ENTERPRISE CONTENT MANAGEMENT The CepOrthohubid Xpert C. difficile Assay, performed on the Lotaris GeneXpert?? Instrument Systems, is a qualitative in [...] - MICRO GENERAL ORDERABLES Performing Organization Address City/[facility]/ZIP Co de Phone Number [facility] Infectious Diseases Diagnostic Lab (IDDL) [address] [facility], [address] [place] [address], [place] [phone] documented in this encounter Visit Diagnoses Diagnosis Diarrhea, unspecified type documented in this encounter Additional Health Concerns Infection Onset Date Last Indicated Resolved Time Rule Out C-difficile 09/27/2021 09/27/2021 021 2:32 PM MANAGER ENTERPRISE CONTENT MANAGEMENT Rule Out C-difficile 01/14/2022 01/14/2022 022 6:15 PM CDT documented as of this encounter Care Teams Associate Pathologist Relationship Specialty [place] [address] [place] [address] PCP - General 07/03/21 07/27/22 [place] [address] [place] [address] PCP - General 07/28/22 [place] [address] [address] [address] Assigned Gastroenterology Provider 05/07/21 08/30/[address] [place] [address] Registered Dietitian Dietitian, Registered 07/20/21 Jon Eng MD [address] [place] [address] [id number] [place] [address] Assigned Surgical Provider 04/14/22 documented as of this encounter
--- OUTSIDE RECORDS SUMMARY | 2024-03-23 12:29 | XMS_ITS | Encounter Summary ---
Author Organization [place] Address [address] [facility] [place] [address] Care Team Providers Care First Calender Worker Name Role Phone [facility] [place] Primary Care Provider + Hakan Barton MD Unavailable [phone] Venus Barnes MD Primary Care Provider [phone] Unavailable [phone] Jon Eng MD Unavailable [phone] Willam Jaramillo MD Primary Care Provider Encounter [...] Out C-difficile 09/27/2021 09/27/2021 021 2:32 PM SEMICONDUCTOR PACKAGES TESTER Rule Out C-difficile 01/14/2022 01/14/2022 022 6:15 PM CDT documented as of this encounter Care Teams First Calender Worker Relationship Specialty Start Date End Date [address] [address] PCP - General 07/05/16 07/02/21 [place] [address] [place] [address] PCP - General 07/03/21 07/27/22 [place] [address] [place] [address] PCP - General 07/28/22 [place] [address] [address] [place] [address] Assigned Gastroenterology Provider 05/07/21 08/30/[address] [place] [address] Registered Dietitian Dietitian, Registered 07/20/21 Jon Eng MD [address] [place] [address] [id number] [place] [address] Assigned Surgical Provider 04/14/22 documented as of this encounter
--- OUTSIDE RECORDS SUMMARY | 2024-03-23 12:29 | XMS_ITS | Encounter Summary ---
Author Organization [place] Address [address] [facility] [place] [address] Care Team Providers Care Perinatology Physician Name Role Phone [facility] [place] Primary Care Provider + Hakan Barton MD Unavailable Venus Barnes MD Primary Care Provider Shar Bartlett RD Unavailable Jon Eng MD Unavailable [phone] Willam Jaramillo MD Primary Care Provider Encounter [...] Out C-difficile 09/27/2021 09/27/2021 021 2:32 PM QUALITY CONTROL TESTER Rule Out C-difficile 01/14/2022 01/14/2022 022 6:15 PM CDT documented as of this encounter Care Teams Perinatology Physician Relationship Specialty Start Date End Date [facility] [id number] [place] [address] PCP - General 07/05/16 07/02/21 [place] [address] [place] [address] PCP - General 07/03/21 07/27/22 [place] [address] [place] [address] PCP - General 07/28/22 [place] [address] [place] [address] Assigned Gastroenterology Provider 05/07/21 08/30/23 Shar Bartlett, TAYLA [address] [place] [id number] Registered Dietitian Dietitian, Registered 07/20/21 Jon Eng MD [address] [place] [address] [id number] [place], [place] [address] Assigned Surgical Provider 04/14/22 documented as of this encounter
--- OUTSIDE RECORDS SUMMARY | 2024-03-23 12:29 | XMS_ITS | Clinical Summary ---
Author Organization [employer] [facility] Address [place], [place] [address] Care Team Providers Care Children'S Zoo Caretaker Name Role Phone Tamiko Ruiz MD Unavailable [phone] Willam Jaramillo MD Primary Care Provider Mary Kinney RN, BSN Unavailable [phone] Tobin Ardon MD Unavailable [phone] Allergies Active Allergy Reactions Criticality Noted Date [...] End Date Status albuterol HFA 90 mcg/actuation inhalerIndications :Chronic obstructive pulmonary disease, unspecified COPD type (HC) Inhale 1-2 Puffs by mouth every 4 hours if needed. 1 Inhaler 6 07/13/2019 Active NebulizerIndicatio ns:COPD exacerbation (HC) Nebulizer, disposable neb kit x 4, reuseable neb kit x 1, mask x 1, filters x 1. Frequency of use: daily; Medication: duoneb Length of need:lifetime 1 Device 12/21/2019 Active albuterol (PROVENTIL) 0.083 % neb solutionIndication s:COPD exacerbation (HC) Inhale 3 mL via a nebulizer every 4 hours if needed (sob / wheezing). 1 box 1 01/07/2020 Active albuterol-ipratrop ium (DUONEB) (2.5-0.5 mg) in 3 mL NEBULIZATION solutionIndication s:COPD with chronic bronchitis (HC) INHALE 3 ML VIA A NEBULIZER 4 TIMES DAILY. 1 box 2 04/19/2020 Active vancomycin (FIRVANQ) 25 mg/mL solr Take 125 mg by mouth. 04/27/2021 Active budesonide-formote roL (Symbicort) 160-4.5 mcg/actuation (160-4.5 mcg each actuation) inhalerIndications :Chronic obstructive pulmonary disease, unspecified COPD type (HC) Inhale 2 Puffs by mouth two times daily. 1 Each 5 04/23/2023 Active apixaban (ELIQUIS) 5 mg tabletIndications: Atrial fibrillation, unspecified type (HC) Take 1 Tablet (5 mg) by mouth two times daily. 60 Tablet 11 07/22/2023 Active furosemide (LASIX) 20 mg tabletIndications: Pedal edema Take 1 Tablet (20 mg) by mouth every morning. 5 Tablet 08/05/2023 Active metoprolol succinate SR (TOPROL XL) 200 mg Sustained-Release tabletIndications: Paroxysmal atrial fibrillation (HC) Take 1 Tablet (200 mg) by mouth once daily. 90 Tablet 3 09/13/2023 Active acetylcysteine 200 mg/mL (20%) neb solution INHALE 3 MILLILITERS BY NEBULIZATION ROUTE 2 TIMES EVERY DAY* 02/07/2024 Active losartan (COZAAR) 100 mg tabletIndications: HTN (hypertension) Take 1 Tablet (100 mg) by mouth once daily. 90 Tablet 1 03/02/2024 Active rosuvastatin (CRESTOR) 20 mg tabletIndications: Coronary artery disease involving [place] coronary artery of [place] heart without angina pectoris Take 1 Tablet (20 mg) by mouth at bedtime. 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 Follows with Dr. Cortez at [facility]. Had radiation, on immunotherapy for 1 year Nodule of left lung 03/19/2023 Overview: 1.[address] in [place] 03/10/2023 Supraventricular tachycardia 02/18/2023 Coronary artery disease [...] surgeries. Colon cancer screening 02/23/2013 Overview: 2012 [place] colonoscopy positive for: diverticula and 10 mm polyp at the hepatic flexure with pathology showing tubular adenoma with low-grade dysplasia, Dr. Kruse at [place] recommend repeat colonoscopy in 3 years in 2016. Adjustment disorder with depressed mood 08/29/20 12 [...] 03/28/2020 022 Acute blood loss anemia 12/09/2019 100 02/2022 GI bleed 12/09/2019 07/18/2022 Diverticulosis of large intestine 11/07/2012 04/29/2020 Overview: Colonoscopy 10/2012 severe diverticulosis incomplete exam, recommend CT colonography Weight loss 11/06/2012 04/29/2020 Overview: Unsuccessful Colonoscopy Oct 2012, Dr. Chris recommended CT of Colonography. Cedrick at [place] Nov 2012, see consult note. Counseling for [...] Description 03/02/2024 8:45 AM CDT Office Visit [facility] [address] [place] [address] Willam Jaramillo MD Medicare ANNUAL (subsequent) Visit (No concerns) 03/02/2024 Travel 02/17/2024 Refill [facility] [address] [place] [address] Willam Jaramillo MD Refill Request (Rosuvastatin) 02/15/2024 Refill [facility] [address] [place] [address] Willam Jaramillo MD Refill Request (Losartan) 02/10/2024 Nurse Triage [facility] [address] [place] [address] Willam Jaramillo MD Blood In Urine 02/10/2024 Nurse Triage [facility] [address] [place] [address] Willam Jaramillo MD open call 01/27/2024 Orders Only [facility] Scanner 1 scan: (1-Ord) [facility], COPD F/U, 01/27/2024 01/23/2024 Telephone [facility] - [address] [place] [address] Dannie Beckman MD Medication Management 01/03/2024 Orders Only [facility] Scanner 1 scan: (1-Ord) [employer], CT CHEST W CON, 01/03/2024 from Last [...] TEST 01/27/2024 12:00 AM CDT SCAN-CT INTERPRETATION 4 12:[address] CHEST W Routine 10/10/2023 12:00 AM DIRECTOR OF STAFF DEVELOPMENT Nodule of left lung SCAN-COLONOSCOPY 12/12/2020 12:0 0 AM DIRECTOR OF STAFF DEVELOPMENT ANTI HCV Routine 07/20/2020 11:00 AM CDT Need for hepatitis C screening test OCCULT BLOOD IFOBT STOOL Routine 02/23/2020 6:00 AM CDT Acute blood loss anemia from Last 3 Months or Most Recently Relevant to Health Maintenance Results * LIPID PANEL W REFLEX MEASURED LDL (03/02/2024 10:13 AM CDT) CHOLESTEROL,TOTAL 128 100 - 199 mg/dL 03/02/2024 3:15 PM CDT [facility] Comment: Cholesterol, Total Reference Ranges Desirable <200 mg/dL Borderline 200-239 mg/dL High >=240 mg/dL TRIGLYCERIDES 94 <150 mg/dL 03/02/2024 3:15 PM CDT [facility] HDL CHOLESTEROL 61 >40 mg/dL 4 3:15 PM CDT [facility] NON-HDL CHOLESTEROL 67 <145 mg/dl 03/02/2024 3:15 PM CDT [facility] CHOL/HDL RATIO 2.10 <4.50 03/02/2024 3:15 PM CDT [facility] LDL CHOLESTEROL 48 <=130 mg/dL 03/02/2024 3:15 PM CDT [facility] VLDL CHOLESTEROL 19 <=30 mg/dL 03/02/2024 3:15 PM CDT [facility] PROVIDER ORDERED STATUS RANDOM 03/02/2024 3:15 PM CDT [facility] Blood BLOOD SPECIMEN / Unknown Butterfly / Unknown 03/02/2024 10:13 AM CDT 03/02/2024 10:13 AM CDT Willam Jaramillo MD CHEMISTRY [facility] [address] [place] [address], [place] * SCAN-PULMONARY FUNCTION TEST (01/27/2024 12:00 AM CDT) Scanner OTHER * SCAN-CT INTERPRETATION (01/03/2024 12:00 AM CDT) Anatomical Region Laterality Modality Other Scanner OTHER * CT CHEST W (10/10/2023 12:00 AM DIRECTOR OF STAFF DEVELOPMENT) Anatomical Region Laterality Modality CHEST, THORAX, HEART Computed To mography Willam Jaramillo MD CT * SCAN-COLONOSCOPY (12/12/2020 12:00 AM DIRECTOR OF STAFF DEVELOPMENT) Scanner OTHER * ANTI HCV (07/20/2020 11:00 AM CDT) HEPATITIS C ANTIBODY Non-React swati Non-React swati 07/20/2020 8:05 PM CDT [facility] Comment:Antibodies to HCV no t detected; does not exclude the possibility of exposure to HCV. Blood BLOOD SPECIMEN / Unknown Butterfly / Unknown 07/20/2020 11:00 AM CDT 07/20/2020 11:46 AM CDT Rosy Croft DO SEND OUTS [facility] [address] [place] [address], [place] * OCCULT BLOOD IFOBT STOOL (02/23/2020 6:00 AM CDT) STOOL BLOOD ,IFOBT Negative Negative 02/23/2020 8:21 AM CDT [facility] Stool STOOL SPECIMEN / Unknown Non-Blood / Unknown 02/23/2020 6:00 AM CDT 02/23/2020 8:13 AM CDT Venus Barnes MD LABORATORY [facility] [address] [place] [address], from Last 3 Months or Most Recently [...] 12:58 PM 02/23/2014 2:14 AM Care Teams [employer]S Zoo Caretaker Relationship Specialty Start [place] [address] [place] [address] PCP - General Family Practice 02/18/23 [place] [address] [place] [address] [address] Surgery - Colon and Rectal 03/18/20 Mary Kinney, RN, BSN [address] [place] [address] Nurse Navigator - Oncology Registered Nurse 04/12/23 Tobin Ardon MD [address] [place] [address] Surgery - Cardiothoracic 04/02/23
--- OUTSIDE RECORDS SUMMARY | 2024-03-23 12:29 | XMS_ITS | Encounter Summary ---
Author Organization [place] Address [address] [place] [address] Care Team Providers Care Workforce Planner Name Role Phone Hakan Barton MD Unavailable Venus Barnes MD Primary Care Provider [phone] Unavailable [phone] Jon Eng MD Unavailable [phone] Willam Jaramillo MD Primary Care Provider Encounter Details Date Type Department Care Team (Late st Contact Info) Description 01/14/2022 [facility] [address] [place] [address] Gerald Hadley Diarrhea, unspecified type Social History [...] MERVAT [facility] SPECIALTY CORE/PROT/ENDO Specialty Core/Prot/Endo [address] [facility], Room [address] [phone] * Clostridium difficile toxin B (01/14/2022 11:30 [...] LABORATORY - 01/14/2022 6:15 PM CDT The CepJangl SMSid Xpert C. difficile Assay, performed on the Framehawk GeneXZones?? Instrument Systems, is a qualitative in vitro [...] - MICRO GENERAL ORDERABLES [facility] Inf. Diseases Diag. Lab [address] [facility], [address] [place] [address], [facility] [phone] * Enteric Bacteria and Virus Panel by [...] performed by multiplexed, qualitative PCR using the CleverAds Enteric Pathogens Nucleic Acid Test. Results should [...] - MICRO GENERAL ORDERABLES [facility] Inf. Diseases Diag. Lab [address] [facility], [address] [place] [address], [facility] [phone] documented in this encounter Visit Diagnoses Diagnosis Diarrhea, unspecified type documented in this encounter Additional Health Concerns Infection Onset Date Last Indicated Resolved Time Rule Out C-difficile 01/14/2022 01/14/2022 022 6:15 PM CDT documented as of this encounter Care Teams Workforce Planner Relationship Specialty [place] [address] [place] [address] PCP - General 07/03/21 07/27/22 [place] [address] [place] [address] PCP - General 07/28/22 [place] [address] [place] [address] Assigned Gastroenterology Provider 05/07/21 08/30/[address] [place] [id number] Registered Dietitian Dietitian, Registered 07/20/21 Jon Eng MD [address] [place] [address] [id number] [place], [place] 0812[address] Assigned Surgical Provider 04/14/22 documented as of this encounter
--- OUTSIDE RECORDS SUMMARY | 2024-03-23 12:29 | XMS_ITS | Encounter Summary ---
Author Organization [place] Address [address] [facility] [place] [address] Care Team Providers Care Glazier Structural Glass Name Role Phone [facility], Kuldeep Harrington Primary Care Provider + Hakan Barton MD Unavailable Venus Barnes MD Primary Care Provider [phone] Unavailable [phone] Jon Eng MD Unavailable [phone] Willam Jaramillo MD Primary Care Provider Encounter Details Date Type Department Care Team (Late st Contact Info) Description 05/22/2021 [facility] [address] [place] [address] Marleny Keller Diarrhea, unspecified type Social History [...] LABORATORY - 05/22/2021 9:15 PM CDT The Jack Robie Xpert C. difficile Assay, performed on the HexaformerXFlat [employer] Education?? Instrument Systems, is a qualitative in vitro [...] - MICRO GENERAL ORDERABLES [facility] Infectious Diseases Diagnostic Lab (IDDL) [address] [facility], [address] [place] [address], [facility] [phone] documented in this encounter Visit Diagnoses Diagnosis [...] Out C-difficile 09/27/2021 09/27/2021 021 2:32 PM PIPELINE SUPERINTENDENT Rule Out C-difficile 01/14/2022 01/14/2022 022 6:15 PM CDT documented as of this encounter Care Teams Glazier Structural Glass Relationship Specialty Start Date End Date [facility] [id number] [place] [address] PCP - General 07/05/16 07/02/21 [place] [address] [place] [address] PCP - General 07/03/21 07/27/22 [place] [address] [place] [address] PCP - General 07/28/22 [place] [address] [place] [address] Assigned Gastroenterology Provider 05/07/21 08/30/23 Shar Bartlett, TAYLA [address] [place] [address] Registered Dietitian Dietitian, Registered 07/20/21 Jon Eng MD [address] [place] [address] [id number] [place], [place] 350[address] Assigned Surgical Provider 04/14/22 documented as of this encounter
--- OUTSIDE RECORDS SUMMARY | 2024-03-23 12:29 | XMS_ITS | Encounter Summary ---
Author Organization [facility] Address [address] [facility] [place] [address] Care Team Providers Care Greensman Name Role Phone [facility] Primary Care Provider + Hakan Barton MD Unavailable [phone] Venus Barnes MD Primary Care Provider [phone] Unavailable [phone] Jon Eng MD Unavailable [phone] Willam Jaramillo MD Primary Care Provider Encounter Details Date Type Department Care Team (Late st Contact Info) Description 01/10/2021 [facility] Only [facility] [address] [place] [id number] Tamiko Ruiz MD COLON RECTAL SURGERY [address] [id number] Abdominal pain (Primary Dx) Social History Tobacco [...] Out C-difficile 09/27/2021 09/27/2021 021 2:32 PM DISASTER RECOVERY COORDINATOR Rule Out C-difficile 01/14/2022 01/14/2022 022 6:15 PM CDT documented as of this encounter Care Teams Greensman Relationship Specialty Start Date End Date [facility] [address] [place] [address] PCP - General 07/05/16 07/02/21 [place] [address] [place] [address] PCP - General 07/03/21 07/27/22 [place] [address] [place] [address] PCP - General 07/28/22 [place] [address] [place] [address] Assigned Gastroenterology Provider 05/07/21 08/30/[address] [place] [address] Registered Dietitian Dietitian, Registered 07/20/21 Jon Eng MD [address] [facility] [id number] [place] [address] Assigned Surgical Provider 04/14/22 documented as of this encounter
--- OUTSIDE RECORDS SUMMARY | 2024-03-23 12:29 | XMS_ITS | Encounter Summary ---
Author Organization [place] Address [address] [facility] [place] [address] Care Team Providers Care Gas Meter Prover Name Role Phone Shar Bartlett [address] RD Unavailable [phone] Willam Jaramillo MD Primary Care Provider Encounter Details Date Type Department Care Team (Latest Contact Info) Description 01/20/2024 [facility] [address] [place] [address] [place] [address] [address] [address] Recurrent Clostridioides difficile diarrhea Social [...] diarrhea documented in this encounter Care Teams Gas Meter Prover Relationship Specialty Start [place] [address] [place], [place] [id number] PCP - General 07/28/22 Shar Bartlett, RD [address] [place] [address] Registered Dietitian Dietitian, Registered 07/20/21 documented as of this encounter
--- NOTE | 2024-03-23 13:00 | CRLHL7_ITS ---
For Patients: As a result of the Century Cures Act, medical imaging exams and procedure reports are released immediately into your electronic medical record. You may view this report before your referring provider. If you have questions, please contact your health care provider. INDICATION: Follow-up lung cancer. New shortness of breath. TECHNIQUE: CT chest, abdomen and pelvis acquired with 50 cc Isovue 370 IV contrast. Oral water contrast was utilized. COMPARISON: CT scan of the chest, abdomen and pelvis 01/03/2024. FINDINGS: CHEST: Lower neck and chest wall: Unremarkable thyroid. No chest wall mass or axillary lymphadenopathy. Mediastinum and thanh: Small right hilar lymph nodes, unchanged. No new or increasing lymphadenopathy. Heart and vasculature: No acute abnormality. Right chest wall port catheter tip at the cavoatrial junction. Lungs: Medial right middle lobe atelectasis, slightly improved. Right lower lobe atelectasis and/or scar, unchanged. Atelectasis and/or scar in the left upper lobe, unchanged. Interval improvement in parenchymal opacity within the superior segment of the left lower lobe which surrounds a stable cavitary lesion. New small grouping of tree-in-bud ill-defined micro nodules within the posterior left lower lobe (images 70 through 77, series 3), likely infectious bronchiolitis. No new mass or pulmonary consolidation. Mild diffuse bronchial wall thickening. Diffuse centrilobular emphysema. Pleura: Normal. No pleural mass, pleural effusion or pneumothorax. Bones: Unremarkable for patient???s age. No acute fracture or suspicious bone lesion. ABDOMEN AND PELVIS: Liver: Normal in size and attenuation. No suspicious masses. Gallbladder and bile ducts: Status post cholecystectomy. Dilated common bile duct, likely the sequelae of the post cholecystectomy state. Pancreas: Unremarkable. No mass or inflammation. Spleen: Normal in size. No masses. Adrenal glands: Normal in size. No nodules. Kidneys, ureters and urinary bladder: Bilateral renal cysts and too small to accurately characterize renal low-density lesions (likely cysts). No renal stone or hydronephrosis. Unremarkable urinary bladder. GI tract: Rectosigmoid anastomosis. Colonic diverticulosis. No diverticulitis or colitis. Unremarkable small bowel. Postsurgical changes at the gastroesophageal junction. No appendicitis. Vasculature: Moderate atherosclerosis of the abdominal aorta. No aneurysm. Lymph nodes: No lymphadenopathy. Peritoneum: Unremarkable. No sign of mass or infiltration. No free air or significant free fluid. Pelvis: Status post hysterectomy. Abdominal wall: Unremarkable. No mass or bowel containing hernia. Bones: Unremarkable for patient???s age. No acute fracture or suspicious bone lesion. IMPRESSION: 1. New small grouping of tree-in-bud ill-defined micronodules within the posterior left lower lobe, likely infectious bronchiolitis. 2. No disease progression or distant metastatic disease identified. 3. Other nonemergent findings as detailed above. Please note that all CT scans at this facility use dose modulation, iterative reconstruction, and/or weight-based dosing when appropriate to reduce radiation dose to as low as reasonably achievable. Dictated by Kimani Deras MD @ 03/24/2024 9:01:36 AM (Electronically Signed)
[2024-03-23 13:14] LABS: Creatinine* 0.6 mg/dL (0.5-1.5); Estimated Glomerular Filt Rate 94 ml/min
== END 2024-03-23 12:27 | disposition home or self-care (01) ==
LOC: CT 12:26
PROVIDERS: PCP Family Medicine; Visit Provider Internal Medicine Hematology & Oncology
DX: C34.32 Malignant neoplasm of lower lobe, left bronchus or lung (principal); R06.02 Shortness of breath; I48.91 Unspecified atrial fibrillation; Z87.891 Personal history of nicotine dependence
CPT/HCPCS: 36415; 71260; 74177; 82565; Q9967

== ENCOUNTER 2024-05-03 07:26 | Emergency (ER) | payer MEDICARE, OTHER, SELFPAY ==
[2024-05-03 07:30] VITALS: BP 199/104; PULSE 61; RESP 18; TEMP 36.2; O2SAT 94; BMI 17.2
--- NOTE | 2024-05-03 08:00 | ED.TRAUMA ---
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 Racheal notes that 5 days ago she accidentally got her arm caught in the car door when it was slamming. She had a significant swollen area on the dorsal aspect of her forearm. She is showing the area that was swollen to be approximately 7 a half to 8 cm in length. She notes that she had a lot of bruising extending onto her elbow and initially she did have elbow pain but that has completely resolved. She is able to move her arm without difficulty. While the swelling on her forearm came down she was left with a small circular area of swelling that is very painful to the touch that has been present and worsening. She has not had fever or chills. She is Related Data Home Medications ?Medication ?Instructions ?Recorded ?Confirmed rosuvastatin 20 mg tablet 20 mg PO DAILY 10/15/22 05/03/24 vancomycin 125 mg capsule 125 mg PO DAILY 10/15/22 05/03/24 amlodipine 2.5 mg tablet 2.5 mg PO DAILY 06/24/23 07/15/23 oxycodone-acetaminophen 5 mg-325 0.5 tab PO Q6H PRN 06/24/23 07/15/23 mg tablet prochlorperazine maleate 10 mg 10 mg PO Q6H PRN nausea 06/24/23 07/15/23 tablet Magic Mouthwash 5 ml PO QID PRN #120 mL 07/06/23 07/15/23 (Lidocaine/Benadryl/Maalox) 120 mL suspension apixaban 5 mg tablet (Eliquis) 5 mg PO BID 09/13/23 05/03/24 losartan 100 mg tablet 100 mg PO DAILY 09/13/23 05/03/24 acetylcysteine 200 mg/mL (20 %) 3 ml BID 05/03/24 solution albuterol sulfate 2.5 mg/3 mL 1 05/03/24 (0.083 %) solution for nebulization Previous Rx's ?Medication ?Instructions ?Recorded digoxin 250 mcg (0.25 mg) tablet 250 mcg PO DAILY #30 tabs 06/27/23 metoprolol tartrate 50 mg tablet 50 mg PO BID #60 tabs 06/27/23 benzonatate 100 mg capsule 100 mg PO TID 14 days #42 caps 07/10/23 ipratropium 0.5 mg-albuterol 3 mg 3 ml inhalation QID 30 days #120 mL 07/10/23 (2.5 mg base)/3 mL nebulization soln melatonin 3 mg tablet 3 mg PO HS PRN 30 days #30 tabs 07/10/23 ondansetron 4 mg disintegrating 4 mg PO Q6H PRN 14 days #20 tabs 07/10/23 tablet potassium chloride 10 mEq 20 meq (2 x 10 mEq) PO DAILYWM 30 07/10/23 capsule,extended release days #30 caps azithromycin 500 mg tablet 500 mg PO DAILY 7 days #7 tabs 08/08/23 prednisone 20 mg tablet 20 mg PO BID #10 tabs 08/08/23 Allergies Allergy/AdvReac Type Severity Reaction Status Date / Time cefuroxime Allergy Severe Anaphylaxis Verified 03/23/24 13:51 codeine Allergy Severe Hypotension Verified 03/23/24 13:51 gatifloxacin [From Tequin] Allergy Severe Anaphylaxis Verified 03/23/24 13:51 hydrocodone [From Vicodin] Allergy Severe Hypertensio Verified 03/23/24 13:51 n iron [From Venofer] Allergy Severe Anaphylaxis Verified 03/23/24 13:51 meperidine [From Demerol] Allergy Severe Anaphylaxis Verified 03/23/24 13:51 morphine Allergy Severe SOB Verified 03/23/24 13:51 Penicillins Allergy Severe Anaphylaxis Verified 03/23/24 13:51 Quinolones Allergy Severe Anaphylaxis Verified 03/23/24 13:51 acetaminophen Allergy Unknown Unknown Verified 03/23/24 13:51 [From Panlor (hydrocodone-acetamin)] ampicillin [From Unasyn] Allergy Unknown Nausea Verified 03/23/24 13:51 diphenhydramine Allergy Unknown Unknown Verified 03/23/24 13:51 doxycycline Allergy Unknown other Verified 03/23/24 13:51 magnesium citrate Allergy Unknown Diarrhea Verified 03/23/24 13:51 metronidazole [From Flagyl] Allergy Unknown Flushing Verified 03/23/24 13:51 sulbactam [From Unasyn] Allergy Unknown Nausea Verified 03/23/24 13:51 sulfamethoxazole Allergy Unknown Nausea Verified 03/23/24 13:51 [From Sulfamethoxazole-Trimethoprim] trimethoprim Allergy Unknown Nausea Verified 03/23/24 13:51 [From Sulfamethoxazole-Trimethoprim] [facility] Medical History COPD (chronic obstructive pulmonary disease) ?J44.9 - Chronic obstructive pulmonary disease, unspecified (ICD-10) C. difficile colitis ?A04.72 - Enterocolitis due to Clostridium difficile, not specified as recurrent (ICD-10) Rash ?R21 - Rash and other nonspecific skin eruption (ICD-10) Radiation dermatitis ?L58.9 - Radiodermatitis, unspecified (ICD-10) Cerebral aneurysm ?I67.1 - Cerebral aneurysm, nonruptured (ICD-10) PVD (peripheral vascular disease) ?I73.9 - Peripheral vascular disease, unspecified (ICD-10) Intermittent atrial fibrillation ?I48.0 - Paroxysmal atrial fibrillation (ICD-10) Non-small cell carcinoma of left lung, stage 3 ?C34.92 - Malignant neoplasm of unspecified part of left bronchus or lung (ICD-10) Surgical History S/P colectomy ?Z90.49 - Acquired absence of other specified parts of digestive tract (ICD-10) Social History What is your current living situation?: I presently have a place to live Problems where you live: no known problems Problems where you live details: no problems In the past 12 months, utilities in danger of being shut off: no In past 12 months, lack of transportation kept you from medical appts, meetings, work, or getting things needed for daily living: no In the past 12 mos, have been you worried that your food would run out before you had money to buy more?: never true In the past 12 mos, the food you bought just didn't last and you didn't have money to buy more?: never true Highest level of school completed/degree received: some college, no degree Smoking Status: Former smoker Do you use any of these nicotine containing products: None Second hand tobacco smoke exposure: Yes How often do you have a drink containing alcohol: monthly or less Alcohol type: beer How many standard drinks containing alcohol do you have on a typical day: 1 or 2 How often do you have six or more drinks on one occasion: Never AUDIT-C Alcohol total score: 1 Non-prescribed substance use: denies use Caffeine: Yes (not in the last 3 months) How often does anyone, including family, friends and others, physically hurt you: never How often does anyone, including family, friends and others, insult or talk down to you: never How often does anyone, including family, friends and others, threaten you with harm: never How often does anyone, including family, friends and others, scream or curse at you: never service: No Exam Narrative: Exam Narrative: Racheal is alert and oriented. Very pleasant well-spoken woman. Her accompanies her and he is very pleasant gentleman and very supportive. No respiratory distress. Patient has a large amount of ecchymosis extending from the back of the elbow onto the entire dorsum of the forearm and onto the left hand. However she has full range of motion of both the elbow and at the wrist and no underlying bony tenderness with palpation. In the mid aspect dorsal forearm she has a circular raised area that is tender to the touch and seems fluctuant. I am wondering if I am seeing a central white area measuring approximately 2 mm. This area is not excessively warm to the touch. It does cause her discomfort however. I used the bedside ultrasound and there does appear to be a fluid structure at this level. Const: Vital Signs, click to edit/add: Vital Signs - 24 hr 05/03/24 07:30 Temperature 97.2 F L Pulse Rate [Right Pulse Oximeter] 61 Respiratory Rate 18 Blood Pressure [Le ft Upper Arm] 199/104 H Pulse Oximetry 94 Oxygen Delivery Me thod Room Air Documenting provider has reviewed patient's vital signs: yes Course Course ED Course: At this time differential differential diagnosis includes but is not limited to hematoma, abscess, edema secondary to trauma. Given the appearance I did do a bedside ultrasound which shows a discrete area of fluid. Risks benefits of incision and drainage versus observation discussed with this patient. Patient is a cancer patient. She is currently on Eliquis which increases risk of bleeding with an incision and drainage. Further, she is on chronic vancomycin although only once a day and has numerous medication allergies especially antibiotics. Anaphylaxis is listed among many of those antibiotics. I have offered an I&D today and discuss risks which include bleeding, introduction of a new infection, compromise of underlying structures. Alternatively we could have patient hot pack this area and continue to monitor and allow Racheal to skip 1 of her Eliquis dosing to decrease risk of bleeding. If this is indeed an abscess it may raise risk of infection and spread to blood stream. With all of our discussions, patient and her eventually elected to I&D today. Patient does not think she needs an x-ray as she has no underlying bony pain at this time. I agree a she has no limited range of motion. Reevaluation(s) Reevaluation #1: After risks benefits discussed and informed consent obtained, patient left arm was cleansed with Betadine. 1% lidocaine with epinephrine was used and injected into this most superficial aspect of the overlying fluctuant area. Good anesthesia was achieved. A scalpel was used to make a 1 cm cut through the epidermis and dermis. Dark red blood with minimal clotting was expressed from this area. Time a curved Sully was used for blunt dissection. There was possibly a small amount of purulent fluid from the most lateral aspect of the hematoma. A culture was obtained. Quarter-inch Nu Gauze packing was used to keep the opening patent frank and allow further drainage. Patient tolerated procedure very well. Vital Signs Vital signs: Initial Vital Signs Temperature 97.2 F L 05/03/24 07:30 Temperature Source Temporal Artery Scan 05/03/24 07:30 Pulse Rate 61 05/03/24 07:30 Respiratory Rate 18 05/03/24 07:30 Blood Pressure 199/104 H 05/03/24 07:30 Blood Pressure Mean 135 H 05/03/24 07:30 Blood Pressure Position Sitting 05/03/24 07:30 Pulse Oximetry 94 05/03/24 07:30 Oxygen Delivery Method Room Air 05/03/24 07:30 Vital Signs Temperature 97.2 F L 05/03/24 07:30 Pulse Rate 61 05/03/24 07:30 Respiratory Rate 18 05/03/24 07:30 Blood Pressure 199/104 H 05/03/24 07:30 Pulse Oximetry 94 05/03/24 07:30 Oxygen Delivery Method Room Air 05/03/24 07:30 Temperature 97.2 F L 05/03/24 07:30 Pulse Rate 61 05/03/24 07:30 Respiratory Rate 18 05/03/24 07:30 Blood Pressure 199/104 H 05/03/24 07:30 Pulse Oximetry 94 05/03/24 07:30 Oxygen Delivery Method Room Air 05/03/24 07:30 Medications Administered Medications: Discontinued Medications Generic Name Dose Route Start Last Admin Trade Name Nilda PRN Reason Stop Dose Admin Lidocaine/Epinephrine 20 ml 05/03/24 08:42 05/03/24 09:23 Lidocaine 1%-Epi 1:100,000 20 Ml INFILTRATI 05/03/24 08:43 20 ml ONCE ONE Administration MDM - Trauma MDM Narrative Medical decision making narrative: 1. Left arm hematoma-unclear if there is an underlying infection as patient noted significant tenderness in this area although without any fever or chills. One must take into consideration that patient is already on vancomycin. We did do a culture as I do believe a small amount of purulence was expressed from the most lateral aspect of the wound. Packing was applied. Would like patient to follow up on Saturday to have that reviewed moved, evaluated. They may want to put a wick back in to keep this area open especially if the culture is positive. At this time given patient's multiple antibiotic allergies and the fact that she is already on vancomycin will not add any additional antibiotic. I do have concerns regarding continued oozing and these were discussed prior to the procedure. If patient notes blood on the dressing, would like her to replace the dressing and skip her nighttime dose of Eliquis. Obviously I do expressed concern regarding atrial fibrillation and Eliquis discontinuation. She would be able to restart Eliquis tomorrow morning. Patient is instructed to return to the emergency room for any worsening symptoms such as significant bleeding, fever, chills and as needed. 2. Disposition-home with her at this time. We had discussed increasing her dose of amlodipine given her elevated blood pressures. 1612: Patient contacted. There does not appear to be any evidence of blood coming through her dressing. At this time recheck of her blood pressure at home was 180/90. She is due for nighttime dose of metoprolol. I would like her to continue to monitor blood pressure and contact her family physician tomorrow. I am wondering if an increase of her amlodipine from 2.5-5 mg is in order. Her pulse is in the 60s and therefore would not increase her metoprolol. She voices understanding. Will return as needed. Medical Records Attestation: I reviewed the patient's medical records. Discharge Plan Discharge Clinical Impression: Abscess, Hematoma Patient Disposition: Home, Self-Care Condition: Improved Additional Instructions: Follow-up with your primary MD on Saturday if possible. Packing may be pulled on Saturday morning. Your doctor may want to put an additional packing in as this heals from the inside out. Seek medical attention for fever, chills, vomiting, worsening redness and as needed. Prescriptions: No Action losartan 100 mg tablet 100 mg PO DAILY Eliquis 5 mg tablet 5 mg PO BID vancomycin 125 mg capsule 125 mg PO DAILY Patient Comments: TAKE ONE CAPSULE BY MOUTH EVERY DAY rosuvastatin 20 mg tablet 20 mg PO DAILY prochlorperazine maleate 10 mg tablet 10 mg PO Q6H PRN (Reason: nausea) oxycodone-acetaminophen 5-325 mg tablet 0.5 tab PO Q6H PRN amlodipine 2.5 mg tablet 2.5 mg PO DAILY digoxin 250 mcg (0.25 mg) Tablet 250 mcg PO DAILY Qty: 30 0RF metoprolol tartrate 50 mg Tablet 50 mg PO BID Qty: 60 0RF azithromycin 500 mg tablet 500 mg PO DAILY 7 Days Qty: 7 0RF prednisone 20 mg tablet 20 mg PO BID Qty: 10 0RF Magic Mouthwash (Lidocaine/Benadryl/Maalox) 120 mL suspension 5 ml PO QID PRNQty: 120 potassium chloride 10 mEq Capsule, Extended Release 20 meq PO DAILYWM 30 Days Qty: 30 0RF benzonatate 100 mg Capsule 100 mg PO TID 14 Days Qty: 42 0RF ondansetron 4 mg Tablet,Disintegrating 4 mg PO Q6H PRN14 Days Qty: 20 1RF ipratropium-albuterol 0.5 mg-3 mg(2.5 mg base)/3 mL Solution For Nebulization 3 ml inhalation QID 30 Days Qty: 120 1RF melatonin 3 mg Tablet 3 mg PO HS PRN30 Days Qty: 30 0RF acetylcysteine 200 mg/mL (20 %) solution 3 ml BID albuterol sulfate 2.5 mg /3 mL (0.083 %) solution for nebulization 1 Follow Up/Referrals: Willam Jaramillo MD [Primary Care Provider] - Stand Alone Forms: [employer] Info Instructions
--- OUTSIDE RECORDS SUMMARY | 2024-05-03 08:15 | XMS_ITS | Encounter Summary ---
Author Organization [facility] Address [address] [place] [id number] Care Team Providers Care Manager Requirements Name Role Phone Shar Bartlett RD Unavailable Willam Jaramillo MD Primary Care Provider Reason for Referral * Rehab Therapy Cardiac Therapy (Routine) - Authorized Specialty Diagnoses / Procedures Referred By Contdeepa t Referred To Contact CARDIAC REHAB Diagnoses COPD, severe (H) [facility] [address] [place] [id number] Referral ID Status Reason Start Date Expiration Date V isits Requested Visits Authorized [id number] Authorized 04/14/2024 10/13/2024 72 72 Question Answer Reason for Referral: COPD Severity: Severe Scheduling Instructions: [employer] will call you to coordinate your care as prescribed by your provider. If you don't hear from a eligibility services representative within 2 business days, please call . Additional Information: Oxygen to be applied as needed for desaturation < 88% at rest and with exertion (below 90% if diagnosis of pulmonary hypertension). Comments Please be aware that coverage of these services is subject to the terms and limitations of your health insurance plan. Call member services at your health plan with any benefit or coverage questions. [employer] will call you to coordinate your care as prescribed by your provider. If you don't hear from a eligibility services representative within 2 business days, please call . Encounter Details Date Type Department Care Team (Latest Contact Info) Description 03/31/2024 Transcribe Orders GENERIC EXTERNAL DATA DEPARTMENT Lacho Rodriguez MD [address] [address] COPD, severe (H) (Primary Dx) Social History Tobacco Use Types [...] as of this encounter Plan of Treatment Scheduled Referrals Name Type Priority Associated Diagnoses Orde r Schedule Pulmonary Rehab Dialysis Patient Care Technician Referral Referral Routine COPD, severe (H) Expected: 03/31/2024 (Approximate), Expires: 03/31/2025 documented as of this encounter Visit Diagnoses Diagnosis COPD, severe (H)- Primary Chronic airway obstruction, not elsewhere classified documented in this encounter Care Teams Manager Requirements Relationship Specialty Start [place] [address] [place] [address] PCP - General 07/28/22 Shar Bartlett, RD [address] [place] [address] Registered Dietitian Dietitian, Registered 07/20/21 documented as of this encounter
--- OUTSIDE RECORDS SUMMARY | 2024-05-03 08:15 | XMS_ITS | Encounter Summary ---
Author Organization [facility] Address [address] [place] [address] Care Team Providers Care Assistant Dean Of Students Name Role Phone Hakan Barton MD Unavailable Venus Barnes MD Primary Care Provider Shar Bartlett RD Unavailable [phone] Jon Eng MD Unavailable [phone] Willam Jaramillo MD Primary Care Provider Encounter Details Date Type Department Care Team (Late st Contact Info) Description 07/18/2021 [facility] [address] [place] [phone] Jessica Davis RN Diarrhea, unspecified type Social [...] - 49.9 mg/kg 07/19/2021 1:06 PM CDT [facility] Comment:Normal Stool RECTAL CONTENTS / Unknown Non-blood Collection / Unknown 07/18/2021 4:29 PM CDT 07/18/2021 4:29 PM CDT Hakan Barton MD LAB - STOOLS [facility] SPECIALTY [facility] Specialty Core Lab [address] [facility], [address] [address] [phone] * (ABNORMAL) Clostridium difficile Toxin B PCR (07/18/2021 4:29 PM CDT) Pathologist [facility] C Difficile Toxin B by PCR Positive( [...] LABORATORY - 07/18/2021 9:41 PM CDT The [employer] Xpert C. difficile Assay, performed on the Renew Fibre?? Instrument Systems, is a qualitative in vitro [...] of CDI. Hakan Barton MD LAB - [place] GENERAL ORDERABLES [facility] Infectious Diseases Diagnostic Lab (IDDL) [address] [facility], [address] [place] [address], [facility] [phone] documented in this encounter Visit Diagnoses Diagnosis Diarrhea, unspecified type documented in this encounter Additional Health Concerns Infection Onset Date Last Indicated Resolved Time C-difficile 04/26/2021 07/18/2021 08/17/2021 11:3 9 PM CDT Rule Out C-difficile 07/18/2021 07/18/2021 021 9:41 PM CDT Rule Out C-difficile 09/27/2021 09/27/2021 021 2:32 PM LEGAL EXECUTIVE Rule Out C-difficile 01/14/2022 01/14/2022 022 6:15 PM CDT documented as of this encounter Care Teams Assistant Dean Of Students Relationship Specialty [place] [address] [place] [address] PCP - General 07/03/21 07/27/22 [place] [address] [place] [address] PCP - General 07/28/22 [place] [address] [place] [address] Assigned Gastroenterology Provider 05/07/21 08/30/[address] [place] [address] Registered Dietitian Dietitian, Registered 07/20/21 Jon Eng MD [address] [facility] [id number] [place] [address] Assigned Surgical Provider 04/14/22 documented as of this encounter
--- OUTSIDE RECORDS SUMMARY | 2024-05-03 08:15 | XMS_ITS ---
Author Organization [facility] Address [address] [place] [address] Care Team Providers Care Phys Ther Name Role Phone Unavailable Unavailable Unavailable Surgery Details Not on file Complications Check Surgery Details section. Procedure Estimated Blood Loss Check Surgery Details section. Procedure Findings Check Surgery Details section. Procedure Specimens Taken Check Surgery Details section.
--- OUTSIDE RECORDS SUMMARY | 2024-05-03 08:15 | XMS_ITS ---
Author Organization [facility] Address [address] [place] [address] Care Team Providers Care Business Process Modeler Name Role Phone Elsewhere, Pcp Primary Care [...] Treated Prescribed Fraction Dose Prescribed Total Dose [id number] 07/03/2023 49 30 of 30 200 cGy 6,000 cGy Reference Point Last Treated On Elapsed Days Session Dose Total Dose [id number] 07/03/2023 49 200 cGy 6,000 cGy
--- OUTSIDE RECORDS SUMMARY | 2024-05-03 08:15 | XMS_ITS | Encounter Summary ---
Author Organization [facility] Address [address] [place] [address] Care Team Providers Care Project Management Consultant Name Role Phone Hakan Barton MD Unavailable Venus Barnes MD Primary Care Provider [phone] Unavailable [phone] Jon Eng MD Unavailable [phone] Willam Jaramillo MD Primary Care Provider Encounter Details Date Type Department Care Team (Late st Contact Info) Description 09/27/2021 [facility] [address] [place] [phone] [place] Diarrhea, unspecified type Social History [...] COVID-19? No / Unsure 09/28/2021 7:30 AM PRESIDENT AND CMO documented as of this encounter Plan of Treatment Not on file documented as of this encounter Procedures Procedure Name Priority Date/Time Associated Diagnosis Comments ENTERIC BACTERIA AND VIRUS PANEL BY PCR Routine 09/27/2021 5:45 PM PRESIDENT AND CMO Diarrhea, unspecified type CLOSTRIDIUM DIFFICILE TOXIN B Routine 09/27/2021 5:45 PM PRESIDENT AND CMO Diarrhea, unspecified type CALPROTECTIN FECES Routine 09/27/2021 5: 45 PM PRESIDENT AND CMO Diarrhea, unspecified type ROUTINE PARASITOLOGY EXAM Routine 09/27/2021 5:45 PM PRESIDENT AND CMO Diarrhea, unspecified type documented in this encounter Results * Ova and Parasite Exam Routine (09/27/2021 5:45 PM PRESIDENT AND CMO) OVA AND PARASITE EXAM Negative Negative JACQUE 09/29/2021 2:20 PM PRESIDENT AND CMO [facility] Comment:A single negative sp ecimen does not rule out parasitic infection. Stool RECTAL CONTENTS / Unknown Non-blood Collection / Unknown 09/27/2021 5:45 PM PRESIDENT AND CMO 09/28/2021 7:42 AM PRESIDENT AND CMO Narrative [facility] - 09/29/2021 2:20 PM PRESIDENT AND CMO Cryptosporidium, Cyclospora and Microsporidia are not readily detected by this method. Hakan Barton MD LAB - MICRO GENERAL ORDERABLES [facility] Infectious Diseases Diagnostic Lab (IDDL) [address] [place] [address], [address] [place] [address], [facility] [phone] * Enteric Bacteria and Virus Panel by JAQUI Stool (09/27/2021 5:45 PM PRESIDENT AND CMO) Campylobacter group Not Detected Not Detected 09/28/2021 9:23 PM PRESIDENT AND CMO [facility] Salmonella species Not Detected Not Detected 09/28/2021 9:23 PM PRESIDENT AND CMO [facility] Shigella species Not Detected Not Detected 09/28/2021 9:23 PM PRESIDENT AND CMO [facility] Vibrio group Not Detected Not Detected 09/28/2021 9:23 PM PRESIDENT AND CMO [facility] Rotavirus Not Detected Not Detected 09/28/2021 9:23 PM PRESIDENT AND CMO [facility] Shiga toxin 1 gene Not Detected Not Detected 09/28/2021 9:23 PM PRESIDENT AND CMO [facility] Shiga toxin 2 gene Not Detected Not Detected 09/28/2021 9:23 PM PRESIDENT AND CMO [facility] Norovirus I and II Not Detected Not Detected 09/28/2021 9:23 PM PRESIDENT AND CMO [facility] Yersinia enterocolitica Not Detected Not Detected 09/28/2021 9:23 PM PRESIDENT AND CMO [facility] Stool RECTAL CONTENTS / Unknown Non-blood Collection / Unknown 09/27/2021 5:45 PM PRESIDENT AND CMO 09/28/2021 7:41 AM PRESIDENT AND CMO Narrative [facility] - 09/28/2021 9:23 PM PRESIDENT AND CMO Testing performed by multiplexed, qualitative PCR using the [employer] Enteric Pathogens Nucleic Acid Test. Results should [...] - MICRO GENERAL ORDERABLES [facility] Infectious Diseases Diagnostic Lab (IDDL) [address] [facility], [address] [place] [address] [phone] * (ABNORMAL) Calprotectin Feces (09/27/2021 5:45 PM PRESIDENT AND CMO) Calprotectin Feces 341.0(H) 0.0 - 49.9 mg/kg 09/29/2021 1:35 PM PRESIDENT AND CMO SPECIALTY CORE/PROT/EN DO Comment: Abnormal, repeat as [...] Non-blood Collection / Unknown 09/27/2021 5:45 PM PRESIDENT AND CMO 09/28/2021 7:42 AM PRESIDENT AND CMO Hakan Barton MD LAB - STOOLS ORDERA BLES Performing Organization Address City/[facility]/ZIP Co de Phone Number SPECIALTY CORE/PROT/ENDO [facility] Specialty Core Lab [address] [facility], [address] [place] [address], [facility] [phone] * Clostridium difficile Toxin B PCR (09/27/2021 5:45 PM PRESIDENT AND CMO) C Difficile Toxin B by PCR Negative Negative 09/28/2021 2:32 PM PRESIDENT AND CMO [facility] Comment:A negative result do es not exclude actual disease due to C. difficile and may be due to improper collection, handling and storage of the specimen or the number of organisms in the specimen is below the detection limit of the assay. Stool RECTAL CONTENTS / Unknown Non-blood Collection / Unknown 09/27/2021 5:45 PM PRESIDENT AND CMO 09/28/2021 7:41 AM PRESIDENT AND CMO Narrative [facility] - 09/28/2021 2:32 PM PRESIDENT AND CMO The [employer] Xpert C. difficile Assay, performed on the [employer]i GeneXpert?? Instrument Systems, is a qualitative in [...] - MICRO GENERAL ORDERABLES Performing Organization Address City/[facility]/ZIP Co de Phone Number [facility] Infectious Diseases Diagnostic Lab (IDDL) [address] [facility], [address] [place] [address] [phone] documented in this encounter Visit Diagnoses Diagnosis Diarrhea, unspecified type documented in this encounter Additional Health Concerns Infection Onset Date Last Indicated Resolved Time Rule Out C-difficile 09/27/2021 09/27/2021 021 2:32 PM PRESIDENT AND CMO Rule Out C-difficile 01/14/2022 01/14/2022 022 6:15 PM CDT documented as of this encounter Care Teams Project Management Consultant Relationship Specialty [place] [address] [place] [address] PCP - General 07/03/21 07/27/22 [place] [address] [place] [address] PCP - General 07/28/22 [place] [address] [place] [address] Assigned Gastroenterology Provider 05/07/21 08/30/23 Shar Bartlett, TAYLA [address] [place] [address] Registered Dietitian Dietitian, Registered 07/20/21 Jon Eng MD [address] [place] [address] [id number] [place] [address] Assigned Surgical Provider 04/14/22 documented as of this encounter
--- OUTSIDE RECORDS SUMMARY | 2024-05-03 08:15 | XMS_ITS | Encounter Summary ---
Author Organization [facility] Address [address] [place] [address] Care Team Providers Care Plant Safety Engineer Name Role Phone Hakan Barton MD Unavailable Venus Barnes MD Primary Care Provider [phone] Unavailable [phone] Jon Eng MD Unavailable [phone] Willam Jaramillo MD Primary Care Provider Encounter Details Date Type Department Care Team (Late st Contact Info) Description 01/14/2022 [facility] [address] [place] [phone] Gerald Hadley Diarrhea, unspecified type Social History [...] Hakan Barton MD LAB - STOOLS ORDERA [facility] UM SPECIALTY CORE/PROT/ENDO Specialty Core/Prot/Endo [address] [facility] [address], Room [address] [phone] * Clostridium difficile toxin B (01/14/2022 11:30 [...] LABORATORY - 01/14/2022 6:15 PM CDT [employer] Xpert C. difficile Assay, performed on the OneTrueFanXSecureOne [employer] Solutions?? Instrument Systems, is a qualitative in vitro [...] - MICRO GENERAL ORDERABLES [facility] Inf. Diseases Diag. Lab [address] [facility], [address] [place] [address], [facility] [phone] * Enteric Bacteria and Virus Panel by [...] performed by multiplexed, qualitative PCR using the [employer] Enteric Pathogens Nucleic Acid Test. Results should [...] - MICRO GENERAL ORDERABLES [facility] Inf. Diseases Diag. Lab [address] [facility], [address] [place] [address], [facility] [phone] documented in this encounter Visit Diagnoses Diagnosis Diarrhea, unspecified type documented in this encounter Additional Health Concerns Infection Onset Date Last Indicated Resolved Time Rule Out C-difficile 01/14/2022 01/14/2022 022 6:15 PM CDT documented as of this encounter Care Teams Plant Safety Engineer Relationship Specialty [place] [address] [place] [address] PCP - General 07/03/21 07/27/22 [place] [address] [place] [address] PCP - General 07/28/22 [place] [address] [place] [address] Assigned Gastroenterology Provider 05/07/21 08/30/23 Shar Bartlett, TAYLA [address] [place] [address] Registered Dietitian Dietitian, Registered 07/20/21 Jon Eng MD [address] [place] [address] [id number] [place] [address] Assigned Surgical Provider 04/14/22 documented as of this encounter
--- OUTSIDE RECORDS SUMMARY | 2024-05-03 08:15 | XMS_ITS | Referral Summary ---
Author Organization [facility] Address [address] [place] [address] Care Team Providers Care Twister In Name Role Phone Shar Bartlett [place] RD Unavailable [phone] Willam Jaramillo MD Primary Care Provider Encounters Date Type Department Care Team Description 03/31/2024 Transcribe Orders GENERIC EXTERNAL DATA DEPARTMENT Lacho Rodriguez MD COPD, severe (H) (Primary Dx) from Last 3 Months Allergies [...] Overview: Added automatically from request for surgery [id number] Diverticulitis of large intestine with abscess 0 [...] on file Medical Devices Implanted Type Area Coloring Room Worker Device Identifier Shelf Expiration Date Model / Serial / Lot Whistle Tip 5fr X 70cm, Right Implanted:Qty: 1 on 12/13/2020 by Jerrod Jose MD at [facility] Right: Ureter BARD 01/11/2022 [id number] / / [id number] Whistle Tip 5 Fr X 70cm, Left Implanted:Qty: 1 on 12/13/2020 by Jerrod Jose MD at [facility] Left: Ureter BARD 01/11/2022 [id number] / / [id number] Explanted Type Area Coloring Room Worker Device Identifier Shelf Expiration Date Model / Serial / Lot Bard Whistle Tip 5fr. X 70 Cm Implanted:Qty: 1 Explanted:Qty: 1 on 04/21/2020 at [facility] Right: Ureter BARD 08/10/2020 [id number] / / [id number] Bard Whistle Tip 5 Fr. X 70 Cm Implanted:Qty: 1 Explanted:Qty: 1 on 04/21/2020 at [facility] Left: Ureter BARD 01/11/2022 [id number] / / [id number] Procedures Procedure Name Priority Date/Time Associated Diagnosis [...] LAB - BLOOD NEHAL [facility] Acute Care Lab [address] [address] floor, [address] [place] [address], [facility] [phone] * COLONOSCOPY (07/03/2021 1:54 PM CDT) COLONOSCOPY [address] [place] [address] [phone] ? Endoscopy Department ___ Patient Name: Racheal [...] prescription should be cleared with . ? [facility] ? Signed Electronically by Hakan Barton MD [...] Negative NEG^Negati ve 04/07/2021 1:57 PM CDT [facility] Stool 04/07/2021 1:34 PM CDT 04/07/2021 1:50 PM CDT Hina Leggett DO LAB - STOOLS ORDER VIOLET [facility] [address] [place] [address], [facility] [phone] from Last 3 Months or Most Recently Relevant to Health Maintenance Advance Directives For more information, please contact: [phone] * Full Code (Latest Code Status on [...] patie nt/ legal decision maker Care Teams Twister In Relationship Specialty [place] [address] [place] [address] PCP - General 07/28/22 Shar Bartlett, RD [address] [place] [address] Registered Dietitian Dietitian, Registered 07/20/21
--- OUTSIDE RECORDS SUMMARY | 2024-05-03 08:15 | XMS_ITS | Clinical Summary ---
Author Organization [facility] Address [address] [place] [address] Care Team Providers Care Social Media Assistant Name Role Phone Elsewhere, Pcp Primary Care Provider Unavailabl e Source Comments Patient records contain information from all sites at [facility]. For routine questions regarding patient records, call [phone] during business hours, M-F 8:00 AM - 5:00 PM Central Time. Record requests for emergency care only can be directed to [phone] at any time[address] Allergies Active Allergy Reactions Criticality Noted Date [...] Comments Blood Pressure 153/69 08/28/2023 11:29 AM LITIGATION ATTORNEY Pulse 66 08/28/2023 11:29 AM LITIGATION ATTORNEY Temperature 36.5 ??C (97.7 ??F) 08/28/2023 11:[address] Respiratory Rate - - Oxygen Saturation - - Inhaled Oxygen Concentration - - Weight 44.7 kg (98 lb 8.7 oz) 08/28/2023 11:29 A M LITIGATION ATTORNEY Height 166 cm (5' 5.35) 12/09/2012 8:39 AM LITIGATION ATTORNEY Body Mass Index - - Plan of Treatment Upcoming Encounters Date Type Department Care Team (Latest Contact Info) Description 07/02/2024 11:00 AM CDT Clinical Communication Virtual Review in [place], [place] [address] [place] [address] 07/06/2024 3:30 PM CDT Appointment Department of Radiation Oncology in [place] [address] [place] [address] Hanh Marquez M.D. [address] [place] [address] Health Maintenance Due Date Last Done Comments Bone Density Scan (Osteoporosis Screen) 1950 CT Colonography 1950 Cologuard 1950 FIT 1950 Hepatitis C Screening 1950 Mammogram 09/19/2013 09/19/2012 (Perf ormed elsewhere) Zoster Vaccines (2 of 2) 04/29/2023 03/04/2023, 05/15 Depression Screening (Annual PHQ-2) 10/14/2023 Fall Risk Screen (Annual) 10/14/2023 COVID-19 Vaccine ( season) 2023 08/28/2023, 08/01/2022, 02/01/2022, Additional history exists Influenza Vaccine (#1) 2024 , 08/01/2022, 07/26/2021, Additional history exists Creatinine Level (Kidney Function [...] Pneumococcal vaccine (65+ years) Completed 06/28/2020, 08/27/2019 HPV Vaccines Aged Out No longer eligi ble based on patient's age to complete this topic Medical Devices Implanted Type Area Barrel Coater Device Identifier Shelf Expiration Date Model / Serial / Lot Hardware E.G. Pins/Screws/R ods Hardware e.g. pins/screws/ rods Duodenum Description:[place] Procedures Procedure Name Priority Date/Time Associated Diagnosis Comments COLONOSCOPY Routine 01/23/2013 1:25 PM CDT from Last 3 Months or Most Recently Relevant to Health Maintenance Results * Colonoscopy (01/23/2013 1:25 PM CDT) 01/23/2013 1:25 PM CDT Siva Philip M.D. GI PROCEDURE ORDERA [facility] [address] [place] [address], [facility] from Last 3 Months or Most Recently Relevant to Health Maintenance Care Teams Social Media Assistant Relationship Specialty Start Date End Date Elsewhere, Pcp PCP - General Family Medicine 05/07/23
--- OUTSIDE RECORDS SUMMARY | 2024-05-03 08:15 | XMS_ITS | Clinical Summary ---
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 Adjustment disorder with depressed mood 08/29/20 12 Overview (03/22/2021): Aug 2012: family stress, started wellbutrin SR. [...] Smoking Tobacco: Former Cigarettes 2.5 40 1 97 - 2010 Smokeless Tobacco: Former Comments:Used vap for [...] of 4 - PCV) 2015 Influenza Vaccine (#1) 2024 08/02/2015, 2012 Care Teams Transonic Engineer Relationship Specialty Start Date End Date Tamiko Ruiz MD COLON & RECTAL SURG [address] [place], [place] [address] PCP - General 03/16/21
--- OUTSIDE RECORDS SUMMARY | 2024-05-03 08:15 | XMS_ITS | Referral Summary ---
Author Organization [facility] Address [address] [place] [address] Care Team Providers Care Fulfillment Coordinator Name Role Phone Elsewhere, Pcp Primary Care Provider Unavailabl e Source Comments Patient records contain information from all sites at [facility]. For routine questions regarding patient records, call [phone] during business hours, M-F 8:00 AM - 5:00 PM Central Time. Record requests for emergency care only can be directed to [phone] at any time.[facility] Allergies Active Allergy Reactions Criticality Noted Date [...] Comments Blood Pressure 153/69 08/28/2023 11:29 AM [facility] Pulse 66 08/28/2023 11:29 AM [facility] Temperature 36.5 ??C (97.7 ??F) 08/28/2023 11:[address] Respiratory Rate - - Oxygen Saturation - - Inhaled Oxygen Concentration - - Weight 44.7 kg (98 lb 8.7 oz) 08/28/2023 11:29 A M [facility] Height 166 cm (5' 5.35) 12/09/2012 8:39 AM [facility] Body Mass Index - - Plan of Treatment Upcoming Encounters Date Type Department Care Team (Latest Contact Info) Description 07/02/2024 11:00 AM CDT Clinical Communication Virtual Review in [place], [place] [address] [place] [address] 07/06/2024 3:30 PM CDT Appointment Department of Radiation Oncology in [place] [address] [place] [address] Hanh Marquez M.D. [address] [place] [address] Medical Devices Implanted Type Area Comedian Device Identifier Shelf Expiration Date Model / Serial / Lot Hardware E.G. Pins/Screws/R ods Hardware e.g. pins/screws/ rods Duodenum Description:[place] Procedures Procedure Name Priority Date/Time Associated Diagnosis Comments COLONOSCOPY Routine 01/23/2013 1:25 PM CDT from Last 3 Months or Most Recently Relevant to Health Maintenance Results * Colonoscopy (01/23/2013 1:25 PM CDT) 01/23/2013 1:25 PM CDT Siva Philip M.D. GI PROCEDURE ORDERA [facility] [address] [place] [id number], [facility] from Last 3 Months or Most Recently Relevant to Health Maintenance Care Teams Fulfillment Coordinator Relationship Specialty Start Date End Date Elsewhere, Pcp PCP - General Family Medicine 05/07/23
--- OUTSIDE RECORDS SUMMARY | 2024-05-03 08:15 | XMS_ITS | Clinical Summary ---
Author Organization [facility] Address [address] [place] [address] Care Team Providers Care Bar Host/Hostess Name Role Phone Shar Bartlett RD Unavailable [phone] Willam Jaramillo MD Primary Care Provider [...] Overview: Added automatically from request for surgery [id number] Diverticulitis of large intestine with abscess 0 04/21/2020 Diverticulitis of small intestine with abscess 0 04/19/2020 Acute diverticulitis 03/31/2020 Diverticulitis 03/28/2020 Encounters Date Type Department Care Team Description 03/31/2024 Transcribe Orders GENERIC EXTERNAL DATA DEPARTMENT Lacho Rodriguez MD COPD, severe (H) (Primary Dx) from Last 3 Months Immunizations [...] Comments ANNUAL REVIEW OF HM ORDERS 1950 COPD ACTION PLAN [address] CT COLONOGRAPHY 1950 DEXA 1950 FLEX SIG 1950 LIPID 1950 MAMMO SCREENING 1950 SPIROMETRY 1950 sDNA (Cologuard) 1950 HEPATITIS C SCREENING 02/03/1968 RSV VACCINE ( & 60+) (1 - 1-dose 60+ series) 2010 FALL RISK ASSESSMENT 2015 FIT 04/07/2022 04/07/2021, 06/02/2020, 02/23/2020 ZOSTER IMMUNIZATION (3 of 3) 04/29/2023 03/04/2023, 06/11/2011 PHQ-2 (once per calendar year) 2023 04/10/2022, 02/28/2022, 11/13/2021 COVID-19 Vaccine ( season) 2023 08/28/2023, 08/01/2022, 02/01/2022, Additional history exists LUNG CANCER SCREENING 04/12/2024 04/12/2023 , 03/20/2023, 12/31/2018, Additional history exists INFLUENZA VACCINE (#1) 2024 , 08/01/2022, 07/26/2021, Additional history exists MEDICARE ANNUAL WELLNESS VISIT [...] this topic Medical Devices Implanted Type Area Customer Service Representative Device Identifier Shelf Expiration Date Model / Serial / Lot Whistle Tip 5fr X 70cm, Right Implanted:Qty: 1 on 12/13/2020 by Jerrod Jose MD at [facility] Right: Ureter BARD 01/11/2022 [id number] / / [id number] Whistle Tip 5 Fr X 70cm, Left Implanted:Qty: 1 on 12/13/2020 by Jerrod Jose MD at [facility] Left: Ureter BARD 01/11/2022 [id number] / / [id number] Explanted Type Area Customer Service Representative Device Identifier Shelf Expiration Date Model / Serial / Lot Bard Whistle Tip 5fr. X 70 Cm Implanted:Qty: 1 Explanted:Qty: 1 on 04/21/2020 at [facility] Right: Ureter BARD 08/10/2020 [id number] / / [id number] Bard Whistle Tip 5 Fr. X 70 Cm Implanted:Qty: 1 Explanted:Qty: 1 on 04/21/2020 at [facility] Left: Ureter BARD 01/11/2022 [id number] / / [id number] Procedures Procedure Name Priority Date/Time Associated Diagnosis [...] MD LAB - BLOOD [facility] Acute Care Lab [address] floor, Room [address] [place] [address], [facility] [phone] * COLONOSCOPY (07/03/2021 1:54 PM CDT) COLONOSCOPY [address] [address] [phone] ? Endoscopy Department ___ Patient Name: Racheal [...] Any antibiotic prescription should be cleared with Dr. ? Mick ? Signed Electronically by Hakan Barton MD __ Hakan Barton MD 07/03/2021 4:07:20 PM I was physically present for the entire viewing portion of the exam. Signature of teaching physician Jaden/Soledad Barton MD Number of Addenda: 1 Note [...] of the exam. Signature of teaching physician Jaden/Soledad Barton MD RADIOLOGY RESULTS 07/03/2021 1:54 PM CDT Tamiko Ruiz MD PROCEDURES RADIOLOGY RESULTS * Stool: occult blood (04/07/2021 1:34 PM CDT) Occult Blood Negative NEG^Negati ve 04/07/2021 1:57 PM CDT [facility] Stool 04/07/2021 1:34 PM CDT 04/07/2021 1:50 PM CDT Hina Leggett DO LAB - STOOLS ORDER VIOLET Performing Organization Address City/[facility]/ZIP Co de Phone Number [facility] [address] [place], [place] [address] [phone] from Last 3 Months or Most Recently Relevant to Health Maintenance Advance Directives For more information, please contact: [phone] * Full Code (Latest Code Status on [...] patie nt/ legal decision maker Care Teams Bar Host/Hostess Relationship Specialty [place] [address] [place] [address] PCP - General 07/28/[address] [place] [address] Registered Dietitian Dietitian, Registered 07/20/21
--- OUTSIDE RECORDS SUMMARY | 2024-05-03 08:16 | XMS_ITS | Encounter Summary ---
Author Organization [facility] Address [address] [place] [address] Care Team Providers Care Stock Speculator Name Role Phone [facility], [facility] Primary Care Provider + Hakan Barton MD Unavailable [phone] Venus Barnes MD Primary Care Provider [phone] Unavailable [phone] Jon Eng MD Unavailable [phone] Willam Jaramillo MD Primary Care Provider Encounter [...] Out C-difficile 09/27/2021 09/27/2021 021 2:32 PM MIDDLE SCHOOL READING TEACHER Rule Out C-difficile 01/14/2022 01/14/2022 022 6:15 PM CDT documented as of this encounter Care Teams Stock Speculator Relationship Specialty Start Date End Date [facility], [facility] [id number] [place] [phone] PCP - General 07/05/16 07/02/21 [place] [address] [place] [address] PCP - General 07/03/21 07/27/22 [place] [address] [place] [address] PCP - General 07/28/22 [place] [address] [place] [address] Assigned Gastroenterology Provider 05/07/21 08/30/23 Shar Bartlett, TAYLA [address] [place], [place] [address] Registered Dietitian Dietitian, Registered 07/20/21 Jon Eng MD [address] [place] [address] [id number] [place], [place] [address]225 Assigned Surgical Provider 04/14/22 documented as of this encounter
--- OUTSIDE RECORDS SUMMARY | 2024-05-03 08:16 | XMS_ITS | Encounter Summary ---
Author Organization [facility] Address [address] [place] [address]. [place] [address] Care Team Providers Care Manager Product Design Name Role Phone [facility], [facility] Primary Care Provider + Hakan Barton MD Unavailable Venus Barnes MD Primary Care Provider [phone] Unavailable [phone] Jon Eng MD Unavailable [phone] Willam Jaramillo MD Primary Care Provider Encounter Details Date Type Department Care Team (Late st Contact Info) Description 01/10/2021 [facility] Only [facility] Laboratory [address] [place] [address] Tamiko Ruiz MD COLON RECTAL SURGERY [address] [address] Abdominal pain (Primary Dx) Social History Tobacco [...] Out C-difficile 09/27/2021 09/27/2021 021 2:32 PM EMPLOYEE REPRESENTATIVE Rule Out C-difficile 01/14/2022 01/14/2022 022 6:15 PM CDT documented as of this encounter Care Teams Manager Product Design Relationship Specialty Start Date End Date [facility], [facility] [address] [place] [phone] PCP - General 07/05/16 07/02/21 [place] [address] [place] [address] PCP - General 07/03/21 07/27/22 [place] [address] PCP - General 07/28/22 [place] [address] [place] [address] Assigned Gastroenterology Provider 05/07/21 08/30/[address] [place] [address] Registered Dietitian Dietitian, Registered 07/20/21 Jon Eng MD 9 [facility] [id number] [place], [place] [address] Assigned Surgical Provider 04/14/22 documented as of this encounter
--- OUTSIDE RECORDS SUMMARY | 2024-05-03 08:16 | XMS_ITS | Encounter Summary ---
Author Organization [facility] Address [address] [place] [address] Care Team Providers Care Powder Worker Tnt Name Role Phone [facility], [facility] Primary Care Provider + Hakan Barton MD Unavailable [phone] Venus Barnes MD Primary Care Provider [phone] Unavailable [phone] Jon Eng MD Unavailable [phone] Willam Jaramillo MD Primary Care Provider Encounter Details Date Type Department Care Team (Late st Contact Info) Description 06/20/2021 [facility] Only [facility] [address] [place] [address] [place] Diarrhea, unspecified type Social History [...] - 49.9 mg/kg 06/21/2021 2:08 PM CDT [facility] Comment:Normal Stool RECTAL CONTENTS / Unknown Non-blood Collection / Unknown 06/20/2021 11:00 AM CDT 06/20/2021 11:41 AM CDT Hakan Barton MD LAB - STOOLS ORDERA MERVAT [facility] Organization Address City/State/ZIP Co de Phone Number [facility] Specialty Core Lab [address] [facility], [address] [place] [address], [facility] [phone] * (ABNORMAL) Clostridium difficile Toxin B PCR (06/20/2021 11:00 AM CDT) Pathologist [facility] C Difficile Toxin B by PCR [...] LABORATORY - 06/20/2021 3:31 PM CDT The Sonivate Medical Xpert C. difficile Assay, performed on the streamit?? Instrument Systems, is a qualitative in vitro [...] - MICRO GENERAL ORDERABLES [facility] ID[facility]ORAT[facility] Infectious Diseases Diagnostic Lab (IDDL) [address] [facility], [address] [place] [address], [facility] [phone] documented in this encounter Visit Diagnoses Diagnosis Diarrhea, unspecified type documented in this encounter Additional Health Concerns Infection Onset Date Last Indicated Resolved Time C-difficile 04/26/2021 07/18/2021 08/17/2021 11:3 9 PM CDT Rule Out C-difficile 06/20/2021 06/20/2021 021 3:31 PM CDT Rule Out C-difficile 07/18/2021 07/18/2021 021 9:41 PM CDT Rule Out C-difficile 09/27/2021 09/27/2021 021 2:32 PM INSPECTOR FINAL ASSEMBLY CONVEYOR LINE Rule Out C-difficile 01/14/2022 01/14/2022 022 6:15 PM CDT documented as of this encounter Care Teams Powder Worker Tnt Relationship Specialty Start Date End Date [address] [phone] PCP - General 07/05/16 07/02/21 Venus Barnes [place] [address] [place] [address] PCP - General 07/03/21 07/27/22 Willam Jaramillo [place] [id number] [place] [address] PCP - General 07/28/22 [place] [address] [place] [address] Assigned Gastroenterology Provider 05/07/21 08/30/23 Shar Bartlett, RD [address] [place], [place] [address] Registered Dietitian Dietitian, Registered 07/20/21 Jon Eng MD 9 [facility] [id number] [place], [place] [address] Assigned Surgical Provider 04/14/22 documented as of this encounter
--- OUTSIDE RECORDS SUMMARY | 2024-05-03 08:16 | XMS_ITS | Encounter Summary ---
Author Organization [facility] Address [address] [place] [address] Care Team Providers Care Cigarette Machine Operator Name Role Phone [facility], [facility] Primary Care Provider + Hakan Barton MD Unavailable [phone] Venus Barnes MD Primary Care Provider [phone] Unavailable [phone] Jon Eng MD Unavailable [phone] Willam Jaramillo MD Primary Care Provider Encounter [...] Out C-difficile 09/27/2021 09/27/2021 021 2:32 PM DATA REPORTING ANALYST Rule Out C-difficile 01/14/2022 01/14/2022 022 6:15 PM CDT documented as of this encounter Care Teams Cigarette Machine Operator Relationship Specialty Start Date End Date [facility] [address] [place] [phone] PCP - General 07/05/16 07/02/21 [place] [address] [place] [address] PCP - General 07/03/21 07/27/22 [place] [address] [place] [address] PCP - General 07/28/22 [place] [address] [address] [place], [place] [address] Assigned Gastroenterology Provider 05/07/21 08/30/[address] [place] [address] Registered Dietitian Dietitigrzegorz, Registered 07/20/21 Jon Eng MD 909 [facility] [id number] [place] [address] Assigned Surgical Provider 04/14/22 documented as of this encounter
--- OUTSIDE RECORDS SUMMARY | 2024-05-03 08:16 | XMS_ITS | Clinical Summary ---
Author Organization [employer] [facility] Address [place], [place] [address] Care Team Providers Care Business Continuity Global Director Name Role Phone Tamiko Ruiz MD Unavailable [phone] Willam Jaramillo MD Primary Care Provider Mary Kinney RN, BSN Unavailable [phone] Tobin Ardon MD Unavailable [phone] Allergies Active Allergy Reactions Criticality Noted Date [...] End Date Status albuterol HFA 90 mcg/actuation inhalerIndications: Chronic obstructive pulmonary disease, unspecified COPD type (HC) Inhale 1-2 Puffs by mouth every 4 hours if needed. 1 Inhaler 6 07/13/2019 Active NebulizerIndication s:COPD exacerbation (HC) Nebulizer, disposable neb kit x 4, reuseable neb kit x 1, mask x 1, filters x 1. Frequency of use: daily; Medication: duoneb Length of need:lifetime 1 Device 12/21/2019 Active albuterol (PROVENTIL) 0.083 % neb solutionIndications :COPD exacerbation (HC) Inhale 3 mL via a nebulizer every 4 hours if needed (sob / wheezing). 1 box 1 01/07/2020 Active albuterol-ipratropi um (DUONEB) (2.5-0.5 mg) in 3 mL NEBULIZATION solutionIndications :COPD with chronic bronchitis (HC) INHALE 3 ML VIA A NEBULIZER 4 TIMES DAILY. 1 box 2 04/19/2020 Active vancomycin (FIRVANQ) 25 mg/mL solr Take 125 mg by mouth. 04/27/2021 Active budesonide-formoter oL (Symbicort) 160-4.5 mcg/actuation (160-4.5 mcg each actuation) inhalerIndications: Chronic obstructive pulmonary disease, unspecified COPD type (HC) Inhale 2 Puffs by mouth two times daily. 1 Each 5 04/23/2023 Active apixaban (ELIQUIS) 5 mg tabletIndications:A trial fibrillation, unspecified type (HC) Take 1 Tablet (5 mg) by mouth two times daily. 60 Tablet 11 07/22/2023 Active furosemide (LASIX) 20 mg tabletIndications:P edal edema Take 1 Tablet (20 mg) by mouth every morning. 5 Tablet 08/05/2023 Active metoprolol succinate SR (TOPROL XL) 200 mg Sustained-Release tabletIndications:P aroxysmal atrial fibrillation (HC) Take 1 Tablet (200 mg) by mouth once daily. 90 Tablet 3 09/13/2023 Active acetylcysteine 200 mg/mL (20%) neb solution INHALE 3 MILLILITERS BY NEBULIZATION ROUTE 2 TIMES EVERY DAY* 02/07/2024 Active losartan (COZAAR) 100 mg tabletIndications:H TN (hypertension) Take 1 Tablet (100 mg) by mouth once daily. 90 Tablet 1 03/02/2024 Active rosuvastatin (CRESTOR) 20 mg tabletIndications:C oronary artery disease involving absentee-shawnee coronary artery of absentee-shawnee heart without angina pectoris Take 1 Tablet (20 mg) by mouth at bedtime. 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 Follows with Dr. Cortez at [facility]. Had radiation, on immunotherapy for 1 year Nodule of left lung 03/19/2023 Overview: 1.[address] in [place] 03/10/2023 Supraventricular tachycardia 02/18/2023 Coronary artery disease [...] surgeries. Colon cancer screening 02/23/2013 Overview: 2012 [facility] colonoscopy positive for: diverticula and 10 mm polyp at the hepatic flexure with pathology showing tubular adenoma with low-grade dysplasia, Dr. Kruse at [facility] recommend repeat colonoscopy in 3 years in [...] Chris recommended CT of Colonography. Cedrick at [facility] Nov 2012, see consult note. Counseling for [...] Encounters Date Type Department Care Team Description 04/28/2024 Telephone [facility], [facility] [address] [place] [address] Esequiel Venegas MD Follow Up 04/10/2024 Telephone [facility] [place] [address] [place] [address] Willam Jaramillo MD Prior Authorization (budesonide-formoteroL (Symbicort) 160-4.5 mcg/actuation (160-4.5 mcg each actuation) inhaler APPROVED 10/14/2023-04/10/2025) 03/27/2024 Orders Only [facility] Scanner 1 scan: (1-Ord) IN LUNG CENTER and IN SLEEP INSTITUTE, PULMONARY FUNCTION TESTING, 03/27/2024 03/27/2024 Orders Only [facility] Scanner 1 scan: (1-Ord) IN LUNG CENTER and IN SLEEP INSTITUTE, PULMONARY FUNCTION TESTING, 03/27/2024 03/25/2024 Orders Only [facility] Scanner 1 scan: (1-Ord) INCOMING RECORDS-LABS, IN ONCOLOGY, 03/25/2024 03/23/2024 Orders Only [facility] Scanner 1 scan: (1-Ord) [facility], CHEST ABDOMEN PELVIS W/CONTRAST, 03/23/2024 03/02/2024 8:45 AM CDT Office Visit [address] [address] Willam Jaramillo MD Medicare ANNUAL (subsequent) Visit (No concerns) 03/02/2024 Travel 02/17/[address] [address] Willam Jaramillo MD Refill Request (Rosuvastatin) 02/15/[address] [address] Willam Jaramillo MD Refill Request (Losartan) 02/10/2024 Nurse Triage [address] [address] Willam Jaramillo MD Blood In Urine 02/10/2024 Nurse Triage [address] [address] Willam Jaramillo MD open call from Last 3 Months Immunizations Name Administration [...] Procedure Name Priority Date/Time Associated Diagnosis Comments SCAN-PULMONARY FUNCTION TEST 03/27/2024 12:00 AM CDT SCAN-PULMONARY FUNCTION TEST 03/27/2024 12:00 AM CDT SCAN CORRESP-LABORATORY RESULTS 03/25/2024 12:00 AM CDT SCAN-CT INTERPRETATION 12:00 AM CDT LIPID PANEL W REFLEX MEASURED LDL Routine 03/02/2024 10:13 AM CDT Lipid screening CT CHEST W Routine 10/10/2023 12:00 AM DONKEY ENGINE FIRER/FIREMAN Nodule of left lung SCAN-COLONOSCOPY 12/12/2020 12:0 0 AM DONKEY ENGINE FIRER/FIREMAN ANTI HCV Routine 07/20/2020 11:00 AM CDT Need for hepatitis C screening test OCCULT BLOOD IFOBT STOOL Routine 02/23/2020 6:00 AM CDT Acute blood loss anemia from Last 3 Months or Most Recently Relevant to Health Maintenance Results * SCAN-PULMONARY FUNCTION TEST (03/27/2024 12:00 AM CDT) Scanner OTHER * SCAN-PULMONARY FUNCTION TEST (03/27/2024 12:00 AM CDT) Scanner OTHER * SCAN CORRESP-LABORATORY RESULTS (03/25/2024 12:00 AM CDT) Scanner OTHER * SCAN-CT INTERPRETATION (03/23/2024 12:00 AM CDT) Anatomical Region Laterality Modality Other Scanner OTHER * LIPID PANEL W REFLEX MEASURED LDL (03/02/2024 10:13 AM CDT) CHOLESTEROL,TOTAL 128 100 - 199 mg/dL 03/02/2024 3:15 PM CDT [facility] TRAL LABORATORY Comment: Cholesterol, Total Reference Ranges Desirable <200 mg/dL Borderline 200-239 mg/dL High >=240 mg/dL TRIGLYCERIDES 94 <150 mg/dL 03/02/2024 3:15 PM CDT [facility] HDL CHOLESTEROL 61 >40 mg/dL 3:15 PM CDT [facility] TRAL LABORATORY NON-HDL CHOLESTEROL 67 <145 mg/dl 03/02/2024 3:15 PM CDT [facility] TRAL LABORATORY CHOL/HDL RATIO 2.10 <4.50 03/02/2024 3:15 PM CDT [facility] TRAL LABORATORY LDL CHOLESTEROL 48 <=130 mg/dL 03/02/2024 3:15 PM CDT [facility] TRAL LABORATORY VLDL CHOLESTEROL 19 <=30 mg/dL 03/02/2024 3:15 PM CDT [facility] TRAL LABORATORY PROVIDER ORDERED STATUS RANDOM 03/02/2024 3:15 PM CDT [facility] TRAL LABORATORY Blood BLOOD SPECIMEN / Unknown Butterfly / Unknown 03/02/2024 10:13 AM CDT 03/02/2024 10:13 AM CDT Willam Jaramillo MD CHEMISTRY [facility] [address] [place] [address], * CT CHEST W (10/10/2023 12:00 AM DONKEY ENGINE FIRER/FIREMAN) Anatomical Region Laterality Modality CHEST, THORAX, HEART Computed To mography Willam Jaramillo MD CT * SCAN-COLONOSCOPY (12/12/2020 12:00 AM DONKEY ENGINE FIRER/FIREMAN) Scanner OTHER * ANTI HCV (07/20/2020 11:00 AM CDT) HEPATITIS C ANTIBODY Non-React swati Non-React swati 07/20/2020 8:05 PM CDT [facility] TRAL LABORATORY Comment:Antibodies to HCV no t detected; does not exclude the possibility of exposure to HCV. Blood BLOOD SPECIMEN / Unknown Butterfly / Unknown 07/20/2020 11:00 AM CDT 07/20/2020 11:46 AM CDT Rosy Croft DO SEND OUTS [facility] [address] [place] [address], [place] * OCCULT BLOOD IFOBT STOOL (02/23/2020 6:00 AM CDT) STOOL BLOOD ,IFOBT Negative Negative 02/23/2020 8:21 AM CDT [facility] Stool STOOL SPECIMEN / Unknown Non-Blood / Unknown 02/23/2020 6:00 AM CDT 02/23/2020 8:13 AM CDT Venus Barnes MD LABORATORY [facility] [address] [place] [address], from Last 3 Months or Most Recently [...] 12:58 PM 02/23/2014 2:14 AM Care Teams Business Continuity Global Director Relationship Specialty Start [place] [address] [place] [address] PCP - General Family Practice 02/18/23 [place] [address] [place] [address] [phone] Surgery - Colon and Rectal 03/18/20 Mary Kinney, RN, BSN [address] [place] [id number] Nurse Navigator - Oncology Registered Nurse 04/12/23 Tobin Ardon MD [address] [place] [address] Surgery - Cardiothoracic 04/02/23
--- OUTSIDE RECORDS SUMMARY | 2024-05-03 08:16 | XMS_ITS | Encounter Summary ---
Author Organization [facility] Address [address] [place] [address] Care Team Providers Care Pediatric Cardiologist Name Role Phone [facility], [facility] Primary Care Provider + Hakan Barton MD Unavailable [phone] Venus Barnes MD Primary Care Provider [phone] Unavailable [phone] Jon Eng MD Unavailable [phone] Willam Jaramillo MD Primary Care Provider Encounter Details Date Type Department Care Team (Late st Contact Info) Description 05/22/2021 [facility] Only [facility] [address] [place] [phone] Marleny Keller Diarrhea, unspecified type Social History [...] LABORATORY - 05/22/2021 9:15 PM CDT The Dokogeo Xpert C. difficile Assay, performed on the Dokogeo GeneXpert?? Instrument Systems, is a qualitative in [...] - MICRO GENERAL ORDERABLES [facility] ID[facility] LABORATORY [facility] Infectious Diseases Diagnostic Lab (IDDL) [address] [facility], [address] [place] [address], [facility] [phone] documented in this encounter Visit Diagnoses Diagnosis [...] Out C-difficile 09/27/2021 09/27/2021 021 2:32 PM ACOUSTICAL TILE DRILL PRESS OPERATOR Rule Out C-difficile 01/14/2022 01/14/2022 022 6:15 PM CDT documented as of this encounter Care Teams Pediatric Cardiologist Relationship Specialty Start Date End Date [facility], [facility] [address] [place] [phone] PCP - General 07/05/16 07/02/21 [place] [address] [place] [address] PCP - General 07/03/21 07/27/22 [place] [address] [place] [address] PCP - General 07/28/22 [place] [address] [place] [address] Assigned Gastroenterology Provider 05/07/21 08/30/23 Shar Bartlett, TAYLA [address] [place], [place] [address] Registered Dietitian Dietitian, Registered 07/20/21 Jon Egn MD [address] [place] [address] [id number] [place], [place] [address] Assigned Surgical Provider 04/14/22 documented as of this encounter
== END 2024-05-03 09:26 | disposition home or self-care (01) ==
PROVIDERS: Emergency Provider Family Medicine; PCP Family Medicine
DX: L02.414 Cutaneous abscess of left upper limb (principal); W23.0XXA Caught, crushed, jammed, or pinched between moving objects, initial encounter
CPT/HCPCS: 10060; 87070; 87186; 99283; 99284

== ENCOUNTER 2024-08-17 09:00 | Outpatient (CLI) | payer MEDICARE, OTHER, SELFPAY ==
--- OUTSIDE RECORDS SUMMARY | 2024-08-17 09:05 | XMS_ITS | Clinical Summary ---
Author Organization [facility] Address [address] [place] [address] Phone Care Team Providers Care Preparation Room Worker Name Role Phone Tamiko Ruiz MD Primary Care Provider [phone] Allergies Active Allergy Reactions Criticality Noted Date [...] (03/22/2021): Added automatically from request for surgery [id number] Diverticulitis of large intestine 04/21/2020 Anxiety 12/09/2019 [...] Vaccine (#1) 2024 08/02/2015, 2012 Care Teams Preparation Room Worker Relationship Specialty Start Date End Date Tamiko Ruiz MD COLON & RECTAL SURG [address] [place], [place] [address] PCP - General 03/16/21
--- OUTSIDE RECORDS SUMMARY | 2024-08-17 09:06 | XMS_ITS | Referral Summary ---
Author Organization [facility] Address [address] [place] [address] Care Team Providers Care Effervescent Salts Compounder Name Role Phone Elsewhere, Pcp Primary Care Provider Unavailabl e Source Comments Patient records contain information from all sites at [facility]. For routine questions regarding patient records, call [phone] during business hours, M-F 8:00 AM - 5:00 PM Central Time. Record requests for emergency care only can be directed to [phone] at any time.[facility] Encounters Date Type Department Care Team Description 07/02/2024 11:00 AM CDT Clinical Communication Virtual Review in [place], [place] [address] [place] [address] from Last 3 Months Allergies Active Allergy Reactions Criticality Noted Date Comments Acetaminophen Hypertension High 10/15/2022 Amphetamine Other (see comments) 12/11/2012 Benzedrine- Hypertension, nausea Ampicillin-Sulbactam Anaphylaxis High 09/26/2015 Cefuroxime Anaphylaxis,Hyperten bean,Shortness of breath (Reselect Reaction),Palpitatio [...] 09/26/2015 Bactrim Trimethoprim GI intolerance 10/15/2022 Medications albuterol 2.5 mg /3 mL nebulizer solution Inhale 2.5 mg every 4 (four) hours as needed for shortness of breath or wheezing. 01/07/20 20 Active amLODIPine (NORVASC) 2.5 mg tablet Take 2.5 mg by mouth daily. 04/08/20 23 Active budesonide-formote roL (SYMBICORT) 160-4.5 mcg/actuation inhaler Inhale 2 puffs 2 (two) times a day as needed. 04/23/20 Active losartan (COZAAR) 100 mg tablet Take 100 mg by mouth daily. 02/29/20 Active metoprolol succinate (TOPROL-XL) 100 mg 24 hr tablet Take 100 mg by mouth daily. 02/19/20 Active vancomycin (VANCOCIN) 125 mg capsule Take 125 mg by mouth daily. 06/20/20 Active rosuvastatin (CRESTOR) 20 mg tablet Take 20 mg by mouth daily. 02/19/20 Active nebulizer accessories kit Nebulizer, disposable neb kit x 4, reuseable neb kit x 1, mask x 1, filters x 1. Frequency of use: daily; Medication: duoneb Length of need:lifetime 12/21/19 Active vancomycin (FIRVANQ) 25 mg/mL solution Take 125 mg by mouth. 04/27/20 Active azithromycin (ZITHROMAX) 250 mg tablet TAKE 1 TABLET (250 MG) BY MOUTH EVERY DAY FOR 4 DAYS STARTING TOMORROW 04/30/23 04/29/20 Active diazePAM (VALIUM) 5 mg tablet TAKE 1 TABLET BY MOUTH EVERY 6 HOURS IF NEEDED FOR ANXIETY. TAKE 30 MINUTES PRIOR TO MRI. MAY REPEAT ONCE 04/18/20 Active HYDROcodone-acetam inophen (NORCO) 5-325 mg per tablet TAKE 1 tablet orally every 4 hours as needed for pain. as needed for cancer related pain.* 05/11/20 Active lidocaine-prilocai ne (EMLA) 2.5-2.5 % cream 1 application topically once as needed for pain. Apply pea sized amount over port site 60 minutes prior to use; cover with plastic wrap.* 05/06/20 Active lisinopriL (PRINIVIL,ZESTRIL) 40 mg tablet Take 40 mg by mouth daily. 02/14/20 Active ondansetron ODT (ZOFRAN-ODT) 4 mg disintegrating tablet DISSOLVE ONE OR TWO TABLETS IN MOUTH EVERY EIGHT HOURS NEEDED FOR NAUSEA OR VOMITING* 05/02/20 Active prochlorperazine (COMPAZINE) 10 mg tablet Take 10 mg by mouth every 6 (six) hours as needed. for nausea 04/27/20 Active oxyCODONE-acetamin ophen (PERCOCET) 5-325 mg per tablet 05/11/20 Active LORazepam (ATIVAN) 0.5 mg tablet Take 1 tablet (0.5 mg total) by mouth 2 (two) times a day. 60 tablet 05/16/20 23 Active ondansetron ODT (ZOFRAN-ODT) 4 mg disintegrating tablet Dissolve 1 tablet (4 mg total) in the mouth every 8 (eight) hours as needed for nausea or vomiting. 20 tablet 3 05/21/20 23 Active OLANZapine (ZyPREXA) 5 mg tablet Take 5 mg by mouth at bedtime. 05/31/20 23 Active codeine-guaiFENesi n (ROBITUSSIN-AC) 10-100 mg/5 mL liquid Take 10 mL by mouth Medrol Dose Pack scheduling ONLY. 06/03/20 23 Active lidocaine 2 % mouth solution Take 5 mL by mouth 4 (four) times a day. 05/28/20 23 Active diphenhydramine-li docaine-antacid (MAGIC MOUTHWASH) 1:1:1 Apply 5 mL to cheek daily as needed. 06/24/20 23 Active acetylcysteine (Mucomyst) 200 mg/mL nebulizer solution Inhale 3 mL by nebulization 2 (two) times a day. 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 05/07/2023 Cancer Staging:Clinical stage from 04/12/2023:Stage IIIB(cT1b, cN3, cM0) - Unsigned Immunizations Name Administration Dates Next Due HZV (ZOSTAVAX) 06/11/2011 Influenza Split 06/19/2012 Influenza TIV (IM) 10/29/2012 Influenza high dose QV(65 years or older) (PF) 0 06/28/2020 Influenza, Quadrivalent, Adjuvanted, Preservativ e Free 08/01/2022,07/26/2021 Influenza, Seasonal, Injectable 10/29/2012,08/18 Influenza, Unspecified 08/02/2015,06/19/2012 PCV13 08/27/2019 PPSV23 06/28/2020 RZV (SHINGRIX) 03/04/2023 Tdap 06/19/2016 influenza trivalent high dose (HD)(PF) 0 influenza trivalent vaccine (6 months and older) (PF) 07/04/2009 influenza vaccine QV(FLUBLOK) (18 years or older ) (PF) 08/27/2019 Social History Tobacco Use Types Packs/Day Years Used Date Smoking Tobacco: Former Cigarettes Q uit: 2012 Passive Smoke Exposure: Current Smokeless Tobacco: Never Tobacco Cessation:Counseling Given: Not Answered Passive Exposure Comments: Alcohol Use Standard Drinks/Week Comments Yes 0 (1 standard drink = 0.6 oz pur e alcohol) Dental Answer Date Recorded Dental: Regular Dentist Unknown 04/27/20 Comments Unknown Sex and Gender Information Value Date Recorded Sex Assigned at Not on file Legal Sex Female 5:18 PM BITUMINOUS 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 Gender Identity Not on file Sexual Orientation Not on file Last Filed Vital Signs Vital Sign Reading Time Taken Comments Blood Pressure 153/69 08/28/2023 11:29 AM BITUMINOUS PAVING MACHINE OPERATOR Pulse 66 08/28/2023 11:29 AM BITUMINOUS PAVING MACHINE OPERATOR Temperature 36.5 ??C (97.7 ??F) 08/28/2023 11:[address] Respiratory Rate - - Oxygen Saturation - - Inhaled Oxygen Concentration - - Weight 44.7 kg (98 lb 8.7 oz) 08/28/2023 11:29 A M BITUMINOUS PAVING MACHINE OPERATOR Height 166 cm (5' 5.35) 12/09/2012 8:39 AM BITUMINOUS PAVING MACHINE OPERATOR Body Mass Index - - Plan of Treatment Upcoming Encounters Date Type Department Care Team (Late st Contact Info) Description 08/31/2024 3:30 PM BITUMINOUS PAVING MACHINE OPERATOR Appointment Department of Radiation Oncology in [place], [place] [address] [place] [address] Hanh Marquez M.D. [address] [place] [address] Medical Devices Implanted Type Area Physical Therapy Assistant Device Identifier Shelf Expiration Date Model / Serial / Lot Hardware E.G. Pins/Screws/R ods Hardware e.g. pins/screws/ rods Duodenum Description:Williams Procedures Procedure Name Priority Date/Time Associated Diagnosis Comments COLONOSCOPY Routine 01/23/2013 1:25 PM CDT from Last 3 Months or Most Recently Relevant to Health Maintenance Results * Colonoscopy (01/23/2013 1:25 PM CDT) 01/23/2013 1:25 PM CDT Siva Philip M.D. GI PROCEDURE ORDERABLES Fin al Result [facility] [address] [place] [address], [facility] from Last 3 Months or Most Recently Relevant to Health Maintenance Insurance MEDICARE [facility] Care Teams Effervescent Salts Compounder Relationship Specialty Start Date End Date Elsewhere, Pcp PCP - General Family Medicine 05/07/23
--- OUTSIDE RECORDS SUMMARY | 2024-08-17 09:06 | XMS_ITS | Clinical Summary ---
Author Organization [employer] [facility] Address [place], [place] [address] Care Team Providers Care Personal Driver Name Role Phone Tamiko Ruiz MD Unavailable [phone] Willam Jaramillo MD Primary Care Provider Mary Kinney RN, BSN Unavailable [phone] Tobin Ardon MD Unavailable [phone] Allergies Active Allergy Reactions Criticality Noted Date [...] and fainted Morphine Shortness Of Breath,Diaphoresis,H ypertension,Tachycar guillremo Medium 07/02/2011 Blood pressure rises, heart races [...] Take 125 mg by mouth. 04/27/2021 Active furosemide (LASIX) 20 mg tabletIndications:P edal [...] 20 mg tabletIndications:C oronary artery disease involving shoshone-paiute coronary artery of shoshone-paiute heart without angina pectoris Take 1 Tablet (20 mg) by mouth at bedtime. 90 Tablet 3 03/02/2024 Active amLODIPine (NORVASC) 5 mg tabletIndications:H TN (hypertension) Take 1 Tablet (5 mg) by mouth once daily. 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 Follows with Dr. Cortez at [facility]. Had radiation, on immunotherapy for 1 year Nodule of left lung 03/19/2023 Overview (03/19/2023): 1.[address] in [place] 03/10/2023 Supraventricular tachycardia 02/18/2023 Coronary artery disease 07/18/2022 Overview (07/18/2022): CT coronary test from 12/31/2018 IMPRESSION: 1. 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 Chronic back pain 05/19/2013 Overview (05/19/2013): S/P 5 lumbar surgeries. Colon cancer screening 02/23/2013 Overview (09/04/2015): 2012 [place] colonoscopy positive for: diverticula and 10 mm polyp at the hepatic flexure with pathology showing tubular adenoma with low-grade dysplasia, Dr. Kruse at [place] recommend repeat colonoscopy in 3 years in 2016. Adjustment disorder with depressed mood 08/29/20 12 Overview (10/09/2012): Aug 2012: family stress, started wellbutrin SR. September 2012: dose adjusted to wellbutrin SR 100mg twice daily. Tobacco use disorder 08/29/2012 Overview (07/30/2013): Successfully Quit March 2013. Resolved Problems Problem Noted Date Diagnosed Date Resolved Date Carotid aneurysm, right 06/20/2022 05 Overview (06/20/2022): CT 03/2022- Incidental shallow 2 mm outpouching of the right carotid terminus which could represent aneurysm or infundibulum. Abdominal aortic aneurysm (A AA) without rupture 04/05/2021 11/20/[address] 04/29/2020 Overview (04/29/2020): Patient with pelvic abscess due to diverticulitis. Sigmoid colectomy. 04/2020 Acute diverticulitis 03/28/2020 022 Acute blood loss anemia 12/09/2019 100 02/2022 GI bleed 12/09/2019 07/18/2022 Diverticulosis of large intestine 11/07/2012 04/29/2020 Overview (09/04/2015): Colonoscopy 10/2012 severe diverticulosis incomplete exam, recommend CT colonography Weight loss 11/06/2012 04/29/2020 Overview (02/23/2013): Unsuccessful Colonoscopy Oct 2012, Dr. Chris recommended CT of Colonography. [facility] at [place] Nov 2012, see consult note. Counseling for hormone replacement therapy 10/09/2012 07/18/2022 Overview (10/09/2012): on ORal estrogen for over 15 years since hysterectomy and oophorectomy. September 2012: stopping estrogen, checking dexa-scan. Abdominal pain, epigastric 07/23/2012 1 Overview (07/23/2012): EGD 07/2012 normal surgical changes Hypertension 09/29/2011 06/20/2022 Overview (01/31/2014): January 2014: blood pressure high on Triamterene/HCTZ combo plus atenolol. Adding 2.5mg of amlodipine and recheck. Encounters Date Type Department Care Team Description 07/13/2024 Refill [facility] [address] [place] [address] Willam Jaramillo MD Refill Request (Eliquis) 07/07/2024 9:45 AM CDT Ancillary Procedure [facility] [address] [place] [address] 07/07/2024 Travel 06/10/2024 Refill [facility] [id number] [place] [address] Willam Jaramillo MD Refill Request (Symbicort) 06/05/2024 Refill [facility] [id number] [place] [address] Willam Jaramillo MD Refill Request (Symbicort) from Last 3 Months Immunizations Name Administration [...] 0 03/02/2024 Social Connections Answer Date Recorded Do you often feel lonely or isolated from those around you? 0 03/02/2024 Financial Resource Strain Answer Date R ecorded Difficulty of Paying Living Expenses 3 03/02/2024 Difficulty of Paying Living Expenses Not on file 03/02/2024 Food Insecurity Answer Date Recorded Do you worry your food will run out before you are able to buy more? 1 03/02/2024 Transportation Needs Answer Date Record ed Does lack of transportation keep you from medica l appointments? 1 03/02/2024 Does lack of transportation keep you from work, meetings or getting things that you need? 1 03/02/2024 Housing Stability Answer Date Recorded What is your housing situation today? 1 03/02/2024 Sex and Gender Information Value Date Recorded Sex Assigned at Not on file Gender Identity Not on file Sexual Orientation Not on file Obstetrics History Last Filed Vital Signs Vital Sign Reading Time Taken Comments Blood Pressure 172/82 05/05/2024 3:14 PM CDT Pulse 64 05/05/2024 3:11 PM CDT Temperature 36.3 ??C (97.3 ??F) 04/12/2023 11:35 AM C DT Respiratory Rate 16 04/12/2023 1:45 PM CDT Oxygen Saturation 96% 03/02/2024 8:42 AM CDT Inhaled Oxygen Concentration - - Weight 47.2 kg (104 lb) 05/05/2024 3:11 PM CDT Height 162.6 cm (5' 4) 03/02/2024 8:42 AM CDT Body Mass Index 17.85 03/02/2024 8:42 AM CDT Plan of Treatment Health Maintenance Due Date Last Done Comments DEXA/DXA scan for age 65+ 2015 Zoster (shingles) series for age 50+ (2 of 2) 04/29/2023 03/04/2023, 06/11/2011 COVID-19 vaccine series ( season) 2024 08/28/2023, 08/01/2022, 02/01/2022, Additional history exists Influenza [...] 04/04/2021, Additional history exists Tdap Completed 06/19/2016 Pneumococcal series for age 65+ Completed , 08/27/2019 Hepatitis C screening for ag e 18-79 Completed 07/20/2020 Procedures Procedure Name Priority Date/Time Associated Diagnosis Comments US CAROTID DUPLEX BILATERAL Routine 07/07/2024 10:11 AM CDT Left carotid stenosis LIPID PANEL W REFLEX MEASURED LDL Routine 03/02/2024 10:13 AM CDT Lipid screening CT CHEST W Routine 10/10/2023 12:00 AM SENIOR PIPING DESIGNER Nodule of left lung SCAN-COLONOSCOPY 12/12/2020 12:0 0 AM SENIOR PIPING DESIGNER ANTI HCV Routine 07/20/2020 11:00 AM CDT Need for hepatitis C screening test from Last 3 Months or Most Recently Relevant to Health Maintenance Results * US CAROTID DUPLEX BILATERAL (07/07/2024 10:11 AM CDT) Anatomical Region Laterality Modality CAROTID, NECK Ultrasound Impressions 07/09/2024 7:43 AM CDT ??Less than 50% narrowing of the cervical internal carotid arteries bilaterally based on the SRU Consensus Criteria. ?? Michele Penaloza D.O. Neuroradiologist [employer] [email or web address] Narrative 07/09/2024 7:43 AM CDT Table formatting from the original result was not included. For Patients: As a result of the Cures Act, medical imaging exams and procedure reports are released immediately into your electronic medical record. ??You may view this report before your referring provider. ?? If you have questions, please contact your health care provider. CAROTID DUPLEX ULTRASOUND BILATERAL, 07/07/2024 INDICATION: ??Left carotid stenosis. ?? TECHNIQUE: ??The carotid circulations and the vertebral arteries in the neck were examined with teresa-scale ultrasound, color-flow and Doppler spectral analysis. Degrees of stenosis were determined using SRU 2002 Consensus Panel Criteria. COMPARISON: ??No comparisons. ?? FINDINGS: ??Evidence of plaque formation within the distal common carotid arteries bilaterally, extending into the proximal cervical internal carotid arteries bilaterally. ??There is flow velocity elevation and is slightly worse on the left. ??Antegrade flow within the vertebral arteries bilaterally with multiphasic flow in the subclavian arteries. ?? PSV/EDV RIGHT ??LEFT ?? Distal CCA 57/17 59/15 Proximal ICA 46/14 64/12 Mid ICA 60/18 56/16 Distal ICA 66/20 80/24 ?? ICA/CCA Ratio 1.16 1.36 Vertebral Artery RIGHT ??LEFT ?? Antegrade ??Yes Yes Retrograde - - Esequiel Noah Venegas MD * LIPID PANEL W REFLEX MEASURED LDL (03/02/2024 10:13 AM CDT) CHOLESTEROL,TOTAL 128 100 - 199 mg/dL 03/02/2024 3:15 PM CDT [facility] Comment: Cholesterol, Total Reference Ranges Desirable <200 mg/dL Borderline 200-239 mg/dL High >=240 mg/dL TRIGLYCERIDES 94 <150 mg/dL 03/02/2024 3:15 PM CDT [facility] HDL CHOLESTEROL 61 >40 mg/dL 3:15 PM CDT [facility] NON-HDL CHOLESTEROL 67 <145 mg/dl 03/02/2024 3:15 PM CDT [facility] CHOL/HDL RATIO 2.10 <4.50 03/02/2024 3:15 PM CDT [facility] LDL CHOLESTEROL 48 <=130 mg/dL 03/02/2024 3:15 PM CDT [facility] VLDL CHOLESTEROL 19 <=30 mg/dL 03/02/2024 3:15 PM CDT [facility] PROVIDER ORDERED STATUS RANDOM 03/02/2024 3:15 PM CDT [facility] Blood BLOOD SPECIMEN / Unknown Butterfly / Unknown 03/02/2024 10:13 AM CDT 03/02/2024 10:13 AM CDT Willam Jaramillo MD [facility] [address] [place] [id number] [place] [address] * CT CHEST W (10/10/2023 12:00 AM SENIOR PIPING DESIGNER) Anatomical Region Laterality Modality CHEST, THORAX, HEART Computed To mography Willam Jaramillo MD CT * SCAN-COLONOSCOPY (12/12/2020 12:00 AM SENIOR PIPING DESIGNER) Scanner OTHER * ANTI HCV (07/20/2020 11:00 AM CDT) HEPATITIS C ANTIBODY Non-React swati Non-React swati 07/20/2020 8:05 PM CDT [facility] Comment:Antibodies to HCV no t detected; does not exclude the possibility of exposure to HCV. Blood BLOOD SPECIMEN / Unknown Butterfly / Unknown 07/20/2020 11:00 AM CDT 07/20/2020 11:46 AM CDT Rosy Croft DO SEND OUTS [employer] [facility] [address] [place] [address], [place] from Last 3 Months or Most Recently [...] 12:58 PM 02/23/2014 2:14 AM Care Teams Personal Driver Relationship Specialty Start [place] [address] [place] [address] PCP - General Family Practice 02/18/23 [place] [address] [address] [facility] [place] [id number] Surgery - Colon and Rectal 03/18/20 Mary Kinney, RN, BSN [address] [place] [address] Nurse Navigator - Oncology Registered Nurse 04/12/23 Tobin Ardon MD [address] [place] [address] Surgery - Cardiothoracic 04/02/23
--- OUTSIDE RECORDS SUMMARY | 2024-08-17 09:06 | XMS_ITS | Encounter Summary ---
Author Organization [facility] Address [address] [place] [address]. [place] [address] Care Team Providers Care Engineer Internship Name Role Phone Mannydarwin Shar [address] RD Unavailable [phone] Willam Jaramillo MD Primary Care Provider Reason for Visit * Reason Onset Date Comments Clinic Care Coordination - Follow-up 05/19/2024 Encounter Details Date Type Department Care Team (Late st Contact Info) Description 05/19/2024 Telephone [facility] [address] [place] [address] Jon Eng MD [address] [place] [address] [id number] [place], [place] [id number] Clinic Care Coordination - Follow-up Social History Tobacco Use Types Packs/Day Years Used Date Smoking Tobacco: Former Cigarettes Smokeless Tobacco: Never Comments:quit 2012 Alcohol Use Standard Drinks/Week Comments Yes 0 (1 standard drink = 0.6 oz pur e alcohol) occas PHQ-2 Answer Date Recorded PHQ-2 Score 0 04/10/2022 Adolescent Education Answer Date Record ed Getting School Help Needed Not on file 07/05 Comments No Sex and Gender Information Value Date Recorded Sex Assigned at Not on file Legal Sex Female 3:09 AM DEVELOPER SUPPORT ENGINEER Gender Identity Not on file Sexual Orientation Not on file documented as of this encounter Miscellaneous Notes * Telephone Encounter - Fatou Hdz - 05/19/2024 1:23 PM CDT Left Voicemail (1st Attempt) for the patient to call back and schedule the following: Appointment type: Return Vascular Neurosurg Provider: Velasquez Return date: On or near 04/10/25 Specialty phone number: [phone] Additional appointment(s) needed: MRA Additonal Notes: 3yr with MRA prior Fatou Hdz on 05/19/2024 at 1:25 PM documented in this encounter Plan of Treatment Not on file documented as of this encounter Visit Diagnoses Not on filedocumented in this encounter Care Teams Engineer Internship Relationship Specialty Start [place] [address] [place] [address] PCP - General 07/28/[address] [place] [address] Registered Dietitian Dietitian, Registered 07/20/21 documented as of this encounter
--- OUTSIDE RECORDS SUMMARY | 2024-08-17 09:06 | XMS_ITS | Encounter Summary ---
Author Organization [place] Address [address] [place] [address] Care Team Providers Care Telecommunications Facility Examiner Name Role Phone Hakan Barton MD Unavailable [phone] Venus Barnes MD Primary Care Provider [phone] Unavailable [phone] Jon Eng MD Unavailable [phone] Willam Jaramillo MD Primary Care Provider Encounter Details Date Type Department Care Team (Late st Contact Info) Description 07/18/2021 [facility] [address] [place] [address] Jessica Davis RN Diarrhea, unspecified type Social History Tobacco Use Types Packs/Day Years Used Date Smoking Tobacco: Former Cigarettes Smokeless Tobacco: Never Comments:quit 2013 Alcohol Use Standard Drinks/Week Comments Yes 0 (1 standard drink = 0.6 oz pur e alcohol) occas Comments No Sex and Gender Information Value Date Recorded Sex Assigned at Not on file Legal Sex Female 3:09 AM MEN'S LOCKER ROOM ATTENDANT Gender Identity Not on file Sexual Orientation [...] - 49.9 mg/kg 07/19/2021 1:06 PM CDT [facility] Comment:Normal Stool RECTAL CONTENTS / Unknown Non-blood Collection / Unknown 07/18/2021 4:29 PM CDT 07/18/2021 4:29 PM CDT us Hakan Barton MD LAB - STOOLS ORDERABLES Fin al Result [facility] Specialty Core Lab [address] [facility], [address] [place] [address], [facility] [phone] * (ABNORMAL) Clostridium difficile Toxin B PCR (07/18/2021 4:29 PM CDT) Pathologist [facility] [place] C [...] LABORATORY - 07/18/2021 9:41 PM CDT [employer] Xpert C. difficile Assay, performed on the Cepheid GeneXpert?? Instrument Systems, is a qualitative in [...] Hakan Barton MD LAB - MICRO GENERAL ORDERAB LES Final Result [facility] Infectious Diseases Diagnostic Lab (IDDL) [address] [facility], [address] [place] [address], [facility] [phone] documented in this encounter Visit Diagnoses Diagnosis Diarrhea, unspecified type documented in this encounter Additional Health Concerns Infection Onset Date Last Indicated Resolved Time C-difficile 04/26/2021 07/18/2021 08/17/2021 11:3 9 PM CDT Rule Out C-difficile 07/18/2021 07/18/2021 021 9:41 PM CDT Rule Out C-difficile 09/27/2021 09/27/2021 021 2:32 PM MEN'S LOCKER ROOM ATTENDANT Rule Out C-difficile 01/14/2022 01/14/2022 022 6:15 PM CDT documented as of this encounter Care Teams Telecommunications Facility Examiner Relationship Specialty [place] [address] [place] [address] PCP - General 07/03/21 07/27/22 [place] [address] [place] [address] PCP - General 07/28/22 [place] [address] [place] [address] Assigned Gastroenterology Provider 05/07/21 08/30/23 Shar Bartlett, TAYLA [address] [place], [place] [address] Registered Dietitian Dietitian, Registered 07/20/21 Jon Eng MD [address] [facility] [facility] [facility] [id number] [place], [place] [address] Assigned Surgical Provider 04/14/22 documented as of this encounter
--- OUTSIDE RECORDS SUMMARY | 2024-08-17 09:06 | XMS_ITS | Encounter Summary ---
Author Organization [place] Address [address] [place] [address] Care Team Providers Care Mill Set Up Name Role Phone [facility], [facility] Primary Care Provider + Hakan Barton MD Unavailable [phone] Venus Barnes MD Primary Care Provider [phone] Unavailable [phone] Jon Eng MD Unavailable [phone] Willam Jaramillo MD Primary Care Provider Encounter [...] on file Legal Sex Female 3:09 AM CONGRESSIONAL AIDE Gender Identity Not on file Sexual Orientation [...] Out C-difficile 09/27/2021 09/27/2021 021 2:32 PM CONGRESSIONAL AIDE Rule Out C-difficile 01/14/2022 01/14/2022 022 6:15 PM CDT documented as of this encounter Care Teams Mill Set Up Relationship Specialty Start Date End Date [facility], [address] [phone] PCP - General 07/05/16 07/02/21 Venus [place] [id number] [place] [address] PCP - General 07/03/21 07/27/22 Willam Jaramillo MD [id number] [place] [address] PCP - General 07/28/22 [place] [address] [place] [address] Assigned Gastroenterology Provider 05/07/21 08/30/[address] [place] [address] Registered Dietitian Dietitian, Registered 07/20/21 Jon Eng MD [address] [place] [address] [id number] [place] [address] Assigned Surgical Provider 04/14/22 documented as of this encounter
--- OUTSIDE RECORDS SUMMARY | 2024-08-17 09:06 | XMS_ITS ---
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 Past Plans Infusion Therapy 1 Plan Name Start Date Discontinue Date Treatment Medications Discontinue Reason Plan Provider Hydration 07/02/2023 06/23/2024 No medications scheduled. Therapy Complete Hanh Marquez M.D. Radiation Treatments * Plan Last Treated On Elapsed Days Fractions Treated Prescribed Fraction Dose Prescribed Total Dose [id number] 07/03/2023 49 30 of 30 200 cGy 6,000 cGy Reference Point Last Treated On Elapsed Days Session Dose Total Dose [id number] 07/03/2023 49 200 cGy 6,000 cGy
--- OUTSIDE RECORDS SUMMARY | 2024-08-17 09:06 | XMS_ITS | Encounter Summary ---
Author Organization [place] Address [address] [place] [address] Care Team Providers Care District Gauger Name Role Phone [facility], [facility] Primary Care Provider + Hakan Barton MD Unavailable [phone] Venus Barnes MD Primary Care Provider [phone] Unavailable [phone] Jon Eng MD Unavailable [phone] Willam Jaramillo MD Primary Care Provider Encounter Details Date Type Department Care Team (Late st Contact Info) Description 05/22/2021 [facility] Only [facility] [address] [place] [phone] Marleny Keller Diarrhea, unspecified type Social History Tobacco Use Types Packs/Day Years Used Date Smoking Tobacco: Former Cigarettes Comments:quit 2013 Alcohol Use Standard Drinks/Week Comments Yes 0 (1 standard drink = 0.6 oz pur e alcohol) occas Comments No Sex and Gender Information Value Date Recorded Sex Assigned at Not on file Legal Sex Female 3:09 AM DIVORCE ATTORNEY Gender Identity Not on file Sexual Orientation [...] LABORATORY - 05/22/2021 9:15 PM CDT [employer] Xpert C. difficile Assay, performed on the [employer] CorporationXpert?? Instrument Systems, is a qualitative in vitro [...] an aid in the diagnosis of CDI. us Hakan Barton MD LAB - MICRO GENERAL ORDERAB LES Final Result [facility] Infectious Diseases Diagnostic Lab (IDDL) [address] [facility], [address] [place] [address], [facility] [phone] documented in this encounter Visit Diagnoses Diagnosis [...] Out C-difficile 09/27/2021 09/27/2021 021 2:32 PM DIVORCE ATTORNEY Rule Out C-difficile 01/14/2022 01/14/2022 022 6:15 PM CDT documented as of this encounter Care Teams District Gauger Relationship Specialty Start Date End Date [facility], [address] [address] PCP - General 07/05/16 07/02/21 Venus Barnes [place] [id number] [place] [address] PCP - General 07/03/21 07/27/22 Willam Jaramillo [place] [address] [place] [address] PCP - General 07/28/22 [place] [address] [place] [address] Assigned Gastroenterology Provider 05/07/21 08/30/[address] [place] [address] Registered Dietitian Dietitian, Registered 07/20/21 Jon Eng MD [address] [place] [address] [id number] [place] [address] Assigned Surgical Provider 04/14/22 documented as of this encounter
--- OUTSIDE RECORDS SUMMARY | 2024-08-17 09:06 | XMS_ITS | Encounter Summary ---
Author Organization [place] Address [address] [place] [address] Care Team Providers Care Automobile Tire Builder Name Role Phone Hakan Barton MD Unavailable Venus Barnes MD Primary Care Provider Shar Bartlett RD Unavailable [phone] Jon Eng MD Unavailable [phone] Willam Jaramillo MD Primary Care Provider Encounter Details Date Type Department Care Team (Late st Contact Info) Description 09/27/2021 [facility] [address] [place] [address] SamrithAlexandria Diarrhea, unspecified type Social History Tobacco Use Types Packs/Day Years Used Date Smoking Tobacco: Former Cigarettes Smokeless Tobacco: Never Comments:quit 2013 Alcohol Use Standard Drinks/Week Comments Yes 0 (1 standard drink = 0.6 oz pur e alcohol) occas Comments No Sex and Gender Information Value Date Recorded Sex Assigned at Not on file Legal Sex Female 3:09 AM CONTRACTS LAW PROFESSOR Gender Identity Not on file Sexual Orientation Not on file COVID-19 Exposure Response Date Recorded In the last month, have you been in contact with someone who was confirmed or suspected to have Coronavirus / COVID-19? No / Unsure 09/28/2021 7:30 AM CONTRACTS LAW PROFESSOR documented as of this encounter Plan of Treatment Not on file documented as of this encounter Procedures Procedure Name Priority Date/Time Associated Diagnosis Comments ENTERIC BACTERIA AND VIRUS PANEL BY PCR Routine 09/27/2021 5:45 PM CONTRACTS LAW PROFESSOR Diarrhea, unspecified type CLOSTRIDIUM DIFFICILE TOXIN B Routine 09/27/2021 5:45 PM CONTRACTS LAW PROFESSOR Diarrhea, unspecified type CALPROTECTIN FECES Routine 09/27/2021 5: 45 PM CONTRACTS LAW PROFESSOR Diarrhea, unspecified type ROUTINE PARASITOLOGY EXAM Routine 09/27/2021 5:45 PM CONTRACTS LAW PROFESSOR Diarrhea, unspecified type documented in this encounter Results * Ova and Parasite Exam Routine (09/27/2021 5:45 PM CONTRACTS LAW PROFESSOR) OVA AND PARASITE EXAM Negative Negative JACQUE 09/29/2021 2:20 PM CONTRACTS LAW PROFESSOR [facility] Comment:A single negative sp ecimen does not rule out parasitic infection. Stool RECTAL CONTENTS / Unknown Non-blood Collection / Unknown 09/27/2021 5:45 PM CONTRACTS LAW PROFESSOR 09/28/2021 7:42 AM CONTRACTS LAW PROFESSOR Narrative [facility] - 09/29/2021 2:20 PM CONTRACTS LAW PROFESSOR Cryptosporidium, Cyclospora and Microsporidia are not readily detected by this method. us Hakan Barton MD LAB - MICRO GENERAL ORDERAB LES Final Result [facility] Infectious Diseases Diagnostic Lab (IDDL) [address] [place] [address], [address] [place] [address], [facility] [phone] * Enteric Bacteria and Virus Panel by JAQUI Stool (09/27/2021 5:45 PM CONTRACTS LAW PROFESSOR) Campylobacter group Not Detected Not Detected 09/28/2021 9:23 PM CONTRACTS LAW PROFESSOR [facility] Salmonella species Not Detected Not Detected 09/28/2021 9:23 PM CONTRACTS LAW PROFESSOR [facility] Shigella species Not Detected Not Detected 09/28/2021 9:23 PM CONTRACTS LAW PROFESSOR [facility] Vibrio group Not Detected Not Detected 09/28/2021 9:23 PM CONTRACTS LAW PROFESSOR [facility] Rotavirus Not Detected Not Detected 09/28/2021 9:23 PM CONTRACTS LAW PROFESSOR [facility] Shiga toxin 1 gene Not Detected Not Detected 09/28/2021 9:23 PM CONTRACTS LAW PROFESSOR [facility] Shiga toxin 2 gene Not Detected Not Detected 09/28/2021 9:23 PM CONTRACTS LAW PROFESSOR [facility] Norovirus I and II Not Detected Not Detected 09/28/2021 9:23 PM CONTRACTS LAW PROFESSOR [facility] Yersinia enterocolitica Not Detected Not Detected 09/28/2021 9:23 PM CONTRACTS LAW PROFESSOR [facility] Stool RECTAL CONTENTS / Unknown Non-blood Collection / Unknown 09/27/2021 5:45 PM CONTRACTS LAW PROFESSOR 09/28/2021 7:41 AM CONTRACTS LAW PROFESSOR Narrative [facility] - 09/28/2021 9:23 PM CONTRACTS LAW PROFESSOR Testing performed by multiplexed, qualitative PCR using the [employer] Enteric Pathogens Nucleic Acid Test. Results should [...] ORDERAB LES Final Result [facility] Infectious Diseases Diagnostic Lab (IDDL) [address] [facility], [address] [place] [address], [facility] [phone] * (ABNORMAL) Calprotectin Feces (09/27/2021 5:45 PM CONTRACTS LAW PROFESSOR) Calprotectin Feces 341.0(H) 0.0 - 49.9 mg/kg 09/29/2021 1:35 PM CONTRACTS LAW PROFESSOR SPECIALTY CORE/PROT/EN DO Comment: Abnormal, repeat as [...] Non-blood Collection / Unknown 09/27/2021 5:45 PM CONTRACTS LAW PROFESSOR 09/28/2021 7:42 AM CONTRACTS LAW PROFESSOR us Hakan Barton MD LAB - STOOLS ORDERABLES Fin al Result SPECIALTY CORE/PROT/ENDO [facility] Specialty Core Lab [address] [facility], [address] [place] [address], [facility] [phone] * Clostridium difficile Toxin B PCR (09/27/2021 5:45 PM CONTRACTS LAW PROFESSOR) C Difficile Toxin B by PCR Negative Negative 09/28/2021 2:32 PM CONTRACTS LAW PROFESSOR [facility] Comment:A negative result do es not exclude actual disease due to C. difficile and may be due to improper collection, handling and storage of the specimen or the number of organisms in the specimen is below the detection limit of the assay. Stool RECTAL CONTENTS / Unknown Non-blood Collection / Unknown 09/27/2021 5:45 PM CONTRACTS LAW PROFESSOR 09/28/2021 7:41 AM CONTRACTS LAW PROFESSOR Narrative [facility] - 09/28/2021 2:32 PM CONTRACTS LAW PROFESSOR The Cepheid Xpert C. difficile Assay, performed on the [employer]Love GeneXpert?? Instrument Systems, is a qualitative in [...] ORDERAB LES Final Result [facility] Infectious Diseases Diagnostic Lab (IDDL) [address] [facility], [address] [place] [address] [phone] documented in this encounter Visit Diagnoses Diagnosis Diarrhea, unspecified type documented in this encounter Additional Health Concerns Infection Onset Date Last Indicated Resolved Time Rule Out C-difficile 09/27/2021 09/27/2021 021 2:32 PM CONTRACTS LAW PROFESSOR Rule Out C-difficile 01/14/2022 01/14/2022 022 6:15 PM CDT documented as of this encounter Care Teams Automobile Tire Builder Relationship Specialty [place] [address] [place] [address] PCP - General 07/03/21 07/27/22 [place] [address] [place] [address] PCP - General 07/28/22 [place] [address] [place] [address] Assigned Gastroenterology Provider 05/07/21 08/30/23 Shar Bartlett, TAYLA [address] [place] [address] Registered Dietitian Dietitian, Registered 07/20/21 Jon Eng MD [address] [place] [address] [id number] [place], [place] [address] Assigned Surgical Provider 04/14/22 documented as of this encounter
--- OUTSIDE RECORDS SUMMARY | 2024-08-17 09:06 | XMS_ITS | Clinical Summary ---
Author Organization [place] Address [address] [place] [address] Care Team Providers Care Reception Interviewer Name Role Phone Shar Bartlett [address] RD Unavailable [phone] Willam Jaramillo MD Primary Care Provider [...] 07/02/2016 Increased BP, increased heart rate Medications budesonide-formote rol (SYMBICORT) 160-4.5 MCG/ACT Inhaler Inhale 2 puffs [...] ferrous sulfate (FEROSUL) 325 (65 Fe) MG tabletIndications: Iron deficiency anemia, unspecified iron deficiency anemia type Take 1 tablet (325 mg) by mouth daily 60 tablet 1 12/19/19 21 Active atenolol (TENORMIN) 50 MG tablet Take 25 mg by mouth daily Active aspirin 81 MG EC tablet Take 81 mg by mouth daily Active vancomycin (FIRVANQ) 25 MG/ML oral solutionIndication s:C. difficile colitis Take 5 mLs (125 mg) by mouth 4 times daily . Length of treatment to be decided by Sina Landers and Pattie. 300 mL 3 04/27/20 21 Active amLODIPine (NORVASC) 5 MG tablet Take 1 tablet (5 mg) by mouth daily 30 tablet 05/31/20 21 Active Additional Information Patient not taking.Reported on 06/07/2021 vancomycin (VANCOCIN) 125 MG capsuleIndications :Recurrent Clostridioides difficile diarrhea Take 1 capsule (125 mg) by mouth 4 times daily 56 capsule 06/20/20 21 Active bisacodyl (DULCOLAX) 5 MG EC tabletIndications: History of Clostridioides difficile infection Take 2 tablets by mouth at bedtime two days prior to procedure. Take 2 tabs by mouth at 3pm one day prior to procedure. 4 tablet 06/26/20 Active Additional Information Patient not taking.Reported on 04/10/2022 polyethylene glycol (GOLYTELY) 236 g suspensionIndicati ons:History of Clostridioides difficile infection Take as directed in patient instructions. One day before exam fill jug with powder and one gallon of water. At 6:00pm drink 8oz glass of mixture every 15 min until the jug is half empty. Store the rest in the refrigerator. Day of exam: 6 hours prior to exam drink the other half of mixture. 4000 mL 06/26/20 Active Additional Information Patient not taking.Reported on 04/10/2022 vancomycin (VANCOCIN) 125 MG capsuleIndications :Recurrent Clostridioides difficile diarrhea Take 1 capsule (125 mg) by mouth 4 times daily 56 capsule 1 07/18/20 21 Active vancomycin (VANCOCIN) 125 MG capsuleIndications :Recurrent Clostridioides difficile diarrhea Take 1 capsule (125 mg) by mouth daily 90 capsule 1 10/10/20 21 Active vancomycin (VANCOCIN) 125 MG capsuleIndications :Recurrent Clostridioides difficile diarrhea Take 1 capsule (125 mg) by mouth daily 90 capsule 1 01/15/20 22 Active vancomycin (VANCOCIN) 125 MG capsuleIndications :Recurrent Clostridioides difficile diarrhea Take 1 capsule (125 mg) by mouth daily 90 capsule 1 01/20/20 24 Active Active Problems Problem Noted Date [...] type 12/12/2020 Diverticular disease of colon 12/12/2020 Overview (12/13/2020): Added automatically from request for surgery [id number] Diverticulitis of large intestine with abscess 0 04/21/2020 Diverticulitis of small intestine with abscess 0 04/19/2020 Acute diverticulitis 03/31/2020 Diverticulitis 03/28/2020 Encounters Date Type Department Care Team Description 08/03/2024 Telephone [facility] Gastroenterology Clinic [address] [place] [address] Hakan Barton MD 05/19/2024 Telephone [facility] Neurology Clinic [address] [place] [address] Jon Eng MD Clinic Care Coordination - Follow-up from Last 3 Months Immunizations Name Administration [...] on file Legal Sex Female 3:09 AM FUSION OPERATOR Gender Identity Not on file Sexual [...] 1950 HEPATITIS C SCREENING 02/03/1968 RSV VACCINE (1 - Risk 60-74 years 1-dose series) 2010 FALL RISK ASSESSMENT 2015 FIT 04/07/2022 04/07/2021, 06/0 02/2020, 02/23/2020 ZOSTER IMMUNIZATION (3 of 3) 04/29/2023 03/04/2023, 06/11/2011 PHQ-2 (once per calendar year) 2023 04/10/2022, 02/28/2022, 11/13/2021 LUNG CANCER SCREENING 04/12/2024 04/12/2023 , 03/20/2023, 12/31/2018, Additional history exists BMP 05/02/2024 05/02/2023, 01/13, 07/28/2022, Additional history exists COVID-19 Vaccine ( season) 2024 08/28/2023, 08/01/2022, 02/01/2022, Additional history exists INFLUENZA VACCINE (#1) 2024 [...] this topic Medical Devices Implanted Type Area Catshovel Driver Device Identifier Shelf Expiration Date Model / Serial / Lot Whistle Tip 5fr X 70cm, Right Implanted:Qty: 1 on 12/13/2020 by Jerrod Jose MD at [facility] Right: Ureter BARD 01/11/2022 [id number] / / [id number] Whistle Tip 5 Fr X 70cm, Left Implanted:Qty: 1 on 12/13/2020 by Jerrod Jose MD at [facility] Left: Ureter BARD 01/11/2022 [id number] / / [id number] Explanted Type Area Catshovel Driver Device Identifier Shelf Expiration Date Model / Serial / Lot Bard Whistle Tip 5fr. X 70 Cm Implanted:Qty: 1 Explanted:Qty: 1 on 04/21/2020 at [facility] Right: Ureter BARD 08/10/2020 [id number] / / [id number] Bard Whistle Tip 5 Fr. X 70 Cm Implanted:Qty: 1 Explanted:Qty: 1 on 04/21/2020 at [facility] Left: Ureter BARD 01/11/2022 [id number] / / [id number] Procedures Procedure Name Priority Date/Time Associated Diagnosis Comments BASIC METABOLIC PANEL STAT 05/02/2023 3:17 PM CDT COLONOSCOPY Routine 07/03/2021 1:54 PM CDT [...] CDT Michael Martinez MD LAB - BLOOD ORDERABLES Fin al Result LABORATORY [facility] [address], [address] [place] [address], [facility] [phone] * COLONOSCOPY (07/03/2021 1:54 PM CDT) [facility] COLONOSCOPY [address] [address] [phone] ? Endoscopy Department ___ Patient Name: Racheal Regalado ? Procedure Date: 07/03/2021 1:54 PM ? Date of : 1950 ?Admit Type: Outpatient Age: 71 ? Room: Rm #2 ? Gender: Female ?Note Status: Addendum [...] second one was done along ? with Larry. This is her third IMT. It was noted that ? the patient had to be admitted after her last two ? colonoscopies due to paradoxic reactions to sedative ? medications. Referring : ?Tamiko Ruiz MD Medicines: ? Midazolam 5 [...] of the exam. Signature of teaching physician B4c/Soledad Barton MD RADIOLOGY RESULTS 07/03/2021 1:54 PM CDT us Tamiko Ruiz MD PROCEDURES Edited Res ult - Final RADIOLOGY RESULTS * Stool: occult blood (04/07/2021 1:34 PM CDT) Occult Blood Negative NEG^Negati ve 04/07/2021 1:57 PM CDT [facility] Stool 04/07/2021 1:34 PM CDT 04/07/2021 1:50 PM CDT us Hina Leggett DO LAB - STOOLS ORDERABLES Ed ited Result - Final [facility] [address] [place] [address], [facility] [phone] from Last 3 Months or Most Recently Relevant to Health Maintenance Insurance MEDICARE [place] BASIC MEDICARE SUPPLEMENT PLAN Advance Directives For more information, please contact: [phone] * Full Code (Latest Code Status on [...] patie nt/ legal decision maker Care Teams Reception Interviewer Relationship Specialty Start [place] [address] [place] [address] PCP - General 07/28/[address] [place] [address] Registered Dietitian Dietitian, Registered 07/20/21
--- OUTSIDE RECORDS SUMMARY | 2024-08-17 09:06 | XMS_ITS | Referral Summary ---
Author Organization [place] Address [address] [place] [address] Care Team Providers Care Unit Controller Name Role Phone Shar Bartlett Berlin RD Unavailable [phone] Wlilam Jaramillo MD Primary Care Provider Encounters Date Type Department Care Team Description 08/03/2024 Telephone [facility] G[facility]ology [facility] [address] 4th [place] [address] Hakan Barton MD 05/19/2024 Telephone [facility] Neurology Clinic [address] [place] [address] Jon Eng MD Clinic Care Coordination - Follow-up from Last 3 Months Allergies Active Allergy [...] day prior to procedure. 4 tablet 06/26/20 21 Active Additional Information Patient not taking.Reported [...] other half of mixture. 4000 mL 06/26/20 21 Active Additional Information Patient not taking.Reported [...] (12/13/2020): Added automatically from request for surgery [id number] Diverticulitis of large intestine with abscess 0 [...] on file Legal Sex Female 3:09 AM LAND CLEARER Gender Identity Not on file Sexual Orientation [...] on file Medical Devices Implanted Type Area Pneumatic Tube Repairer Device Identifier Shelf Expiration Date Model / Serial / Lot Whistle Tip 5fr X 70cm, Right Implanted:Qty: 1 on 12/13/2020 by Jerrod Jose MD at [facility] Right: Ureter BARD 01/11/2022 [id number] / / [id number] Whistle Tip 5 Fr X 70cm, Left Implanted:Qty: 1 on 12/13/2020 by Jerrod Jose MD at [facility] Left: Ureter BARD 01/11/2022 [id number] / / [id number] Explanted Type Area Pneumatic Tube Repairer Device Identifier Shelf Expiration Date Model / Serial / Lot Bard Whistle Tip 5fr. X 70 Cm Implanted:Qty: 1 Explanted:Qty: 1 on 04/21/2020 at [facility] Right: Ureter BARD 08/10/2020 [id number] / / [id number] Bard Whistle Tip 5 Fr. X 70 Cm Implanted:Qty: 1 Explanted:Qty: 1 on 04/21/2020 at [facility] Left: Ureter BARD 01/11/2022 [id number] / / [id number] Procedures Procedure Name Priority Date/Time Associated Diagnosis [...] 3:17 PM CDT 05/02/2023 3:20 PM CDT us Michael Martinez MD LAB - BLOOD ORDERABLES Fin al Result LABORATORY [facility] Acute Care Lab [address] floor, Room [address] [place] [address], [facility] [phone] * COLONOSCOPY (07/03/2021 1:54 PM CDT) [facility] Signature COLONOSCOPY [address] [place] [address] [phone] ? Endoscopy Department ___ Patient Name: Racheal [...] Any antibiotic prescription should be cleared with ? Mick ? Signed Electronically by Hakan [...] STOOLS ORDERABLES Ed ited Result - Final [facility] [address] [phone] from Last 3 Months or Most Recently Relevant to Health Maintenance [place]ARE [place] SU[place]LEMENT PLAN Advance Directives For more information, please contact: [phone] * Full Code (Latest Code Status on [...] patie nt/ legal decision maker Care Teams Unit Controller Relationship Specialty [place] [address] [place] [address] PCP - General 07/28/[address] [place] [address] Registered Dietitian Dietitian, Registered 07/20/21
--- OUTSIDE RECORDS SUMMARY | 2024-08-17 09:06 | XMS_ITS | Encounter Summary ---
Author Organization [place] Address [address] [place] [address] Care Team Providers Care .Net Architect Name Role Phone [facility], [facility] Primary Care Provider + Hakan Barton MD Unavailable [phone] Venus Barnes MD Primary Care Provider [phone] Unavailable [phone] Jon Eng MD Unavailable [phone] Willam Jaramillo MD Primary Care Provider Encounter Details Date Type Department Care Team (Late st Contact Info) Description 06/20/2021 [facility] Only [facility] [address] [place] [phone] [place] Diarrhea, unspecified type Social History Tobacco Use Types Packs/Day Years Used Date Smoking Tobacco: Former Cigarettes Comments:quit 2013 Alcohol Use Standard Drinks/Week Comments Yes 0 (1 standard drink = 0.6 oz pur e alcohol) occas Comments No Sex and Gender Information Value Date Recorded Sex Assigned at Not on file Legal Sex Female 3: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 Comment:Normal Stool RECTAL CONTENTS / Unknown Non-blood Collection / Unknown 06/20/2021 11:00 AM CDT 06/20/2021 11:41 AM CDT Hakan Barton MD LAB - STOOLS ORDERABLES Fin al Result [facility] Specialty Core Lab [address] [facility], [address] [place] [address], [facility] [phone] * (ABNORMAL) Clostridium difficile Toxin B PCR (06/20/2021 11:00 AM CDT) C Difficile Toxin B by [...] LABORATORY - 06/20/2021 3:31 PM CDT The [employer] Xpert C. difficile Assay, performed on the [employer] GeneXpert?? Instrument Systems, is a qualitative in [...] ORDERAB LES Final Result [facility] Infectious Diseases Diagnostic Lab (IDDL) [address] [facility], [address] [place] [address], [facility] [phone] documented in this encounter Visit Diagnoses Diagnosis Diarrhea, unspecified type documented in this encounter Additional Health Concerns Infection Onset Date Last Indicated Resolved Time C-difficile 04/26/2021 07/18/2021 08/17/2021 11:3 9 PM CDT Rule Out C-difficile 06/20/2021 06/20/2021 021 3:31 PM CDT Rule Out C-difficile 07/18/2021 07/18/2021 021 9:41 PM CDT Rule Out C-difficile 09/27/2021 09/27/2021 021 2:32 PM METAL ENGINEERING PROCESS WORKER Rule Out C-difficile 01/14/2022 01/14/2022 022 6:15 PM CDT documented as of this encounter Care Teams .Net Architect Relationship Specialty Start Date End Date [facility] [id number] [place] [address] PCP - General 07/05/16 07/02/21 Venus [place] [id number] [place] [address] PCP - General 07/03/21 07/27/22 [place] [address] [place] [address] PCP - General 07/28/22 [place] [address] [address] [place] [address] Assigned Gastroenterology Provider 05/07/21 08/30/[address] [place] [address] Registered Dietitian Dietitian, Registered 07/20/21 Jon Eng MD [address] [place] [address] [id number] [place] [address] Assigned Surgical Provider 04/14/22 documented as of this encounter
--- OUTSIDE RECORDS SUMMARY | 2024-08-17 09:06 | XMS_ITS | Encounter Summary ---
Author Organization [facility] Address [address] [place] [address] Care Team Providers Care Animal Skinner Name Role Phone Elsewhere, Pcp Primary Care Provider Unavailabl e Encounter Details Date Type Department Care Team (Latest Contact Info) Description 07/02/2024 11:00 AM CDT Clinical Communication Virtual Review in [place], [place] [address] [place] [address] Social History Tobacco Use Types Packs/Day Years Used Date Smoking Tobacco: Former Cigarettes Q uit: 2013 Passive Smoke Exposure: Current Smokeless Tobacco: Never Passive Exposure Comments:Hu sband Alcohol Use Standard Drinks/Week Comments Yes 0 (1 standard drink = 0.6 oz pur e alcohol) Dental Answer Date Recorded Dental: Regular Dentist Unknown 04/27/20 21 Comments Unknown Sex and Gender Information Value Date Recorded Sex Assigned at Not on file Legal Sex Female 5:18 PM BODY AND FRAME TECHNICIAN Gender Identity Not on file Sexual Orientation Not on file documented as of this encounter Plan of Treatment Upcoming Encounters Date Type Department Care Team (Late st Contact Info) Description 08/31/2024 3:30 PM BODY AND FRAME TECHNICIAN Appointment Department of Radiation Oncology in [place], [place] [address] [place] [address] Hanh Marquez M.D. [address] [place] [address] documented as of this encounter Visit Diagnoses Not on filedocumented in this encounter Care Teams Animal Skinner Relationship Specialty Start Date End Date Elsewhere, Pcp PCP - General Family Medicine 05/07/23 documented as of this encounter
--- OUTSIDE RECORDS SUMMARY | 2024-08-17 09:06 | XMS_ITS | Clinical Summary ---
Author Organization [facility] Address [address] [place] [address] Care Team Providers Care Gallery Or Museum Guide Name Role Phone Elsewhere, Pcp Primary Care Provider Unavailabl e Source Comments Patient records contain information from all sites at [facility]. For routine questions regarding patient records, call [phone] during business hours, M-F 8:00 AM - 5:00 PM Central Time. Record requests for emergency care only can be directed to [phone] at any time.[facility] Allergies Active Allergy Reactions Criticality Noted Date [...] (two) times a day as needed. 04/23/20 23 Active losartan (COZAAR) 100 mg tablet Take 100 mg by mouth daily. 02/29/20 23 Active metoprolol succinate (TOPROL-XL) 100 mg 24 [...] FOR 4 DAYS STARTING TOMORROW 04/30/23 04/29/20 23 Active diazePAM (VALIUM) 5 mg tablet TAKE 1 TABLET BY MOUTH EVERY 6 HOURS IF NEEDED FOR ANXIETY. TAKE 30 MINUTES PRIOR TO MRI. MAY REPEAT ONCE 04/18/20 Active HYDROcodone-acetam inophen (NORCO) 5-325 mg per tablet TAKE 1 tablet orally every 4 hours as needed for pain. as needed for cancer related pain.* 05/11/20 23 Active lidocaine-prilocai ne (EMLA) 2.5-2.5 % cream 1 application topically once as needed for pain. Apply pea sized amount over port site 60 minutes prior to use; cover with plastic wrap.* 05/06/20 23 Active lisinopriL (PRINIVIL,ZESTRIL) 40 mg tablet Take 40 mg by mouth daily. 02/14/20 23 Active ondansetron ODT (ZOFRAN-ODT) 4 mg disintegrating tablet DISSOLVE ONE OR TWO TABLETS IN MOUTH EVERY EIGHT HOURS NEEDED FOR NAUSEA OR VOMITING* 05/02/20 23 Active prochlorperazine (COMPAZINE) 10 mg tablet Take 10 mg by mouth every 6 (six) hours as needed. for nausea 04/27/20 23 Active oxyCODONE-acetamin ophen (PERCOCET) 5-325 mg per tablet 05/11/20 23 Active LORazepam (ATIVAN) 0.5 mg tablet Take 1 tablet (0.5 mg total) by mouth 2 (two) times a day. 60 tablet 05/16/20 23 Active ondansetron ODT (ZOFRAN-ODT) 4 mg disintegrating tablet Dissolve 1 tablet (4 mg total) in the mouth every 8 (eight) hours as needed for nausea or vomiting. 20 tablet 3 05/21/20 Active OLANZapine (ZyPREXA) 5 mg tablet Take 5 mg by mouth at bedtime. 05/31/20 Active codeine-guaiFENesi n (ROBITUSSIN-AC) 10-100 mg/5 mL liquid Take 10 mL by mouth Medrol Dose Pack scheduling ONLY. 06/03/20 Active lidocaine 2 % mouth solution Take 5 mL by mouth 4 (four) times a day. 05/28/20 Active diphenhydramine-li docaine-antacid (MAGIC MOUTHWASH) 1:1:1 Apply 5 mL to cheek daily as needed. 06/24/20 Active acetylcysteine (Mucomyst) 200 mg/mL nebulizer solution Inhale 3 mL by nebulization 2 (two) times a day. 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 05/07/2023 Cancer Staging:Clinical stage from 04/12/2023:Stage IIIB(cT1b, cN3, cM0) - Unsigned Encounters Date Type Department Care Team Description 07/02/2024 11:00 AM CDT Clinical Communication Virtual Review in [address] [address] from Last 3 Months Immunizations Name Administration [...] on file Legal Sex Female 5:18 PM SPECIAL DELIVERY CARRIER Gender Identity Not on file Sexual Orientation Not on file Last Filed Vital Signs Vital Sign Reading Time Taken Comments Blood Pressure 153/69 08/28/2023 11:29 AM SPECIAL DELIVERY CARRIER Pulse 66 08/28/2023 11:29 AM SPECIAL DELIVERY CARRIER Temperature 36.5 ??C (97.7 ??F) 08/28/2023 11:[address] Respiratory Rate - - Oxygen Saturation - - Inhaled Oxygen Concentration - - Weight 44.7 kg (98 lb 8.7 oz) 08/28/2023 11:29 A M SPECIAL DELIVERY CARRIER Height 166 cm (5' 5.35) 12/09/2012 8:39 AM SPECIAL DELIVERY CARRIER Body Mass Index - - Plan of Treatment Upcoming Encounters Date Type Department Care Team (Late st Contact Info) Description 08/31/2024 3:30 PM SPECIAL DELIVERY CARRIER Appointment Department of Radiation Oncology in [place], [place] [address] [place] [address] Hanh Marquez M.D. [address] [place] [address] Health Maintenance Due Date Last Done Comments Bone Density Scan (Osteoporosis Screen) 1950 CT Colonography 1950 Cologuard 1950 FIT 1950 Hepatitis C Screening 1950 RSV vaccine - (32-36 weeks) or 60+ years (1 - Risk 60-74 years 1-dose series) 2010 Mammogram 09/19/2013 09/19/2012 (Perf ormed elsewhere) Zoster Vaccines (2 of 2) 04/29/2023 03/04/2023, 05/15 Depression Screening (Annual PHQ-2) 10/14/2023 Fall Risk Screen (Annual) 10/14/2023 COVID-19 Vaccine ( season) 2024 08/28/2023, 08/01/2022, [...] 07/22/2023, 05/02/2023, 02/07/2023, Additional history exists Colonoscopy 07/03/2031 07/03/2021, 03/0 10/2020, 01/23/2013, Additional history exists Colorectal Cancer Screening 07/03/2031 Pneumococcal vaccine (65+ years) Completed 06/28/2020, 08/27/2019 HPV Vaccines Aged Out No longer eligi ble based on patient's age to complete this topic IPV Vaccines Aged Out No longer eligi ble based on patient's age to complete this topic Medical Devices Implanted Type Area Risk Reduction Counselor Device Identifier Shelf Expiration Date Model / [...] GI PROCEDURE ORDERABLES Fin al Result [facility] [address] from Last 3 Months or Most Recently Relevant to Health Maintenance Insurance MEDICARE [facility] Care Teams Gallery Or Museum Guide Relationship Specialty Start Date End Date Elsewhere, Pcp PCP - General Family Medicine 05/07/23
--- OUTSIDE RECORDS SUMMARY | 2024-08-17 09:06 | XMS_ITS ---
Author Organization [facility] Address [address] [place] [address] Care Team Providers Care Hedge Fund Trader Name Role Phone Unavailable Unavailable Unavailable Surgery Details Not on file Complications Check Surgery Details section. Procedure Estimated Blood Loss Check Surgery Details section. Procedure Findings Check Surgery Details section. Procedure Specimens Taken Check Surgery Details section.
--- OUTSIDE RECORDS SUMMARY | 2024-08-17 09:06 | XMS_ITS | Encounter Summary ---
Author Organization [place] Address [address] [place] [address] Care Team Providers Care Silk Screen Layout Drafter Name Role Phone 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, [facility] [id number] [place] [phone] PCP - General 07/05/16 07/02/21 Venus [place] [id number] [place] [address] PCP - General 07/03/21 07/27/22 [place] [address] PCP - General 07/28/22 [place] [address] [address], [place] [address] Assigned Gastroenterology Provider 05/07/21 08/30/[address] [place] [address] Registered Dietitian Dietitian, Registered 07/20/21 Jon Eng MD [address] [place] [address] [address] Assigned Surgical Provider 04/14/22 documented as of this encounter
--- OUTSIDE RECORDS SUMMARY | 2024-08-17 09:06 | XMS_ITS | Encounter Summary ---
Author Organization [place] Address [address] [place] [address]. [place] [address] Care Team Providers Care Customs Verifier Name Role Phone [facility], [facility] Primary Care Provider + Hakan Barton MD Unavailable Venus Barnes MD Primary Care Provider [phone] Unavailable [phone] Jon Eng MD Unavailable [phone] Willam Jaramillo MD Primary Care Provider Encounter Details Date Type Department Care Team (Late st Contact Info) Description 01/10/2021 [facility] [address] [place] [address] Tamiko Ruiz MD COLON RECTAL SURGERY [address] [address] Abdominal pain (Primary Dx) Social History Tobacco Use Types Packs/Day Years Used Date Smoking Tobacco: Former Cigarettes Comments:quit 2013 Alcohol Use Standard Drinks/Week Comments Yes 0 (1 standard drink = 0.6 oz pur e alcohol) occas Comments No Sex and Gender Information Value Date Recorded Sex Assigned at Not on file Legal Sex Female 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 AIRCRAFT 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 Gender Identity Not on file Sexual Orientation [...] Out C-difficile 09/27/2021 09/27/2021 021 2:32 PM AIRCRAFT INSTRUMENT TESTER Rule Out C-difficile 01/14/2022 01/14/2022 022 6:15 PM CDT documented as of this encounter Care Teams Customs Verifier Relationship Specialty Start Date End Date [address] [phone] PCP - General 07/05/16 07/02/21 [place] [address] [place] [address] PCP - General 07/03/21 07/27/22 Willam Jaramillo [place] [address] [place] [address] PCP - General 07/28/22 [place] [address] [place] [address] Assigned Gastroenterology Provider 05/07/21 08/30/23 Shar Bartlett, TAYLA [address] [place] [address] Registered Dietitian Dietitian, Registered 07/20/21 Jon Eng MD [address] [facility] [id number] [place] [address] Assigned Surgical Provider 04/14/22 documented as of this encounter
--- OUTSIDE RECORDS SUMMARY | 2024-08-17 09:06 | XMS_ITS | Encounter Summary ---
Author Organization [place] Address [address] [place] [address] Care Team Providers Care Knife Sharpener Name Role Phone Hakan Barton MD Unavailable [phone] Venus Barnes MD Primary Care Provider Shar Bartlett RD Unavailable [phone] Jon Eng MD Unavailable [phone] Willam Jaramillo MD Primary Care Provider Encounter Details Date Type Department Care Team (Late st Contact Info) Description 01/14/2022 [facility] [address] [place] [address] Gerald Hadley Diarrhea, unspecified type Social History Tobacco Use Types Packs/Day Years Used Date Smoking Tobacco: Former Cigarettes Smokeless Tobacco: Never Comments:quit 2012 Alcohol Use Standard Drinks/Week Comments Yes 0 (1 standard drink = 0.6 oz pur e alcohol) occas PHQ-2 Answer Date Recorded PHQ-2 Score 0 11/13/2021 Comments No Sex and Gender Information Value Date Recorded Sex Assigned at Not on file Legal Sex Female 3:09 AM 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 difficile Assay, performed on the 27 [employer]ards[employer]Manas Informatic?? Instrument Systems, is a qualitative in vitro [...] ORDERAB LES Final Result [facility] Inf. Diseases Diag. Lab [address] [facility], [address] [place] [address], [facility] [phone] * Enteric Bacteria and Virus Panel by [...] performed by multiplexed, qualitative PCR using the [employer] Enteric Pathogens Nucleic Acid Test. Results should [...] ORDERAB LES Final Result [facility] Inf. Diseases Diag. Lab [address] [facility], [address] [place] [address], [facility] [phone] documented in this encounter Visit Diagnoses Diagnosis Diarrhea, unspecified type documented in this encounter Additional Health Concerns Infection Onset Date Last Indicated Resolved Time Rule Out C-difficile 01/14/2022 01/14/2022 022 6:15 PM CDT documented as of this encounter Care Teams Knife Sharpener Relationship Specialty [place] [address] [place] [address] PCP - General 07/03/21 07/27/22 [place] [address] [place] [address] PCP - General 07/28/22 [place] [address] [address] [place] [address] Assigned Gastroenterology Provider 05/07/21 08/30/[address] [place] [address] Registered Dietitian Chel[place], Registered 07/20/21 Jon Eng MD [address] [facility] [id number] [place] [address] Assigned Surgical Provider 04/14/22 documented as of this encounter
--- OUTSIDE RECORDS SUMMARY | 2024-08-17 09:06 | XMS_ITS | Encounter Summary ---
Author Organization [place] Address [address] [place] [address]. [place] [address] Care Team Providers Care Wares Sorter Name Role Phone Shar Bartlett [address] RD Unavailable [phone] Willam Jaramillo MD Primary Care Provider Encounter Details Date Type Department Care Team (Late st Contact Info) Description 08/03/2024 Telephone [facility] Gastroenterology Clinic [address] 4th [place] [address] [place]akan Barton [place] [id number] [place] [address] Social History Tobacco Use Types Packs/Day Years [...] on file Legal Sex Female 3:09 AM TAX ASSESSOR Gender Identity Not on file Sexual Orientation Not on file documented as of this encounter Miscellaneous Notes * Telephone Encounter - Hakan Barton MD - 08/03/2024 4:12 PM CDT The patient called to report that she had several episodes of rectal bleeding (described as dry, 'brown'). She also had some irregular bowel movements. The patient is currently being treated for lung cancer. She is s/p partial colon resection for diverticulitis. She has history of recurrent C. 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 In 2020 she had two colonoscopies. I told the patient that the most definitive way to know what is going on is to do a colonoscopy. She was not keen on the procedure. She will be having an appointments with the her oncologist in August for routine follow-up. It may be reasonable to consider a PET CT. Hakan Barton MD documented in this encounter Plan of Treatment Not on file documented as of this encounter Visit Diagnoses Not on filedocumented in this encounter Care Teams Wares Sorter Relationship Specialty Start [place] [address] [place] [address] PCP - General 07/28/22 Shar Bartlett, TAYLA [address] [place] [address] Registered Dietitian Dietitian, Registered 07/20/21 documented as of this encounter
[2024-08-17 09:54] LABS: Creatinine* 0.6 mg/dL (0.5-1.5); Estimated Glomerular Filt Rate 94 ml/min
--- NOTE | 2024-08-17 10:00 | CRLHL7_ITS ---
For Patients: As a result of the Century Cures Act, medical imaging exams and procedure reports are released immediately into your electronic medical record. You may view this report before your referring provider. If you have questions, please contact your health care provider. INDICATION: Lung adenocarcinoma follow-up blood in stool TECHNIQUE: CT chest, abdomen and pelvis acquired with 49 mL Isovue 370 COMPARISON: CT 03/23/2024, 01/03/2024 FINDINGS: CHEST: Cardiovascular structures: Heart size is normal. Thoracic aorta and main pulmonary artery are normal in caliber. Mediastinum and thanh: No mass or adenopathy. Lungs and pleura: 5 millimeter nodule left upper lobe unchanged. Left perihilar soft tissue thickening extending along the superior aspect of the left lower lobe and along the fissure appears increased in size when compared to prior study. Recurrent disease not excluded. Example this measures 1.9 x 3.7 centimeters measured on there is surrounding bandlike architectural distortion. The air-filled cavitary lesion appears smaller when compared to the prior study chronic right middle lobe atelectasis unchanged left lower lobe and right lower lobe atelectasis scarring unchanged tree-in-bud opacities left lower lobe appears resolved. Chest wall and axilla: No mass or adenopathy. ABDOMEN AND PELVIS: Liver: Unremarkable. Gallbladder and bile ducts: Cholecystectomy Pancreas: Unremarkable. Spleen: Unremarkable. Adrenal glands: Unremarkable. Kidneys: Too small to characterize low-attenuation lesions in both kidneys as well as left renal cysts GI tract: Duodenal diverticulum. Postsurgical changes at the GE junction. Rectosigmoid anastomosis diverticulosis abundant stool in the colon the bowel appears unremarkable Vascular structures: Abdominal aorta is normal in caliber. Lymph nodes: Unremarkable. Miscellaneous: Unremarkable. No free air or significant free fluid. Pelvic Organs: Unremarkable. Bones: No suspicious bone lesions. IMPRESSION: 1. Increased left perihilar soft tissue thickening extending along the superior aspect of left lower lobe and fissure recurrent disease not excluded. Decreased size of previous air-filled cavity. 2. Tree-in-bud opacities left lower lobe appears resolved similar appearance of chronic right middle lobe atelectasis and bibasilar atelectasis scarring. 3. No acute findings in the abdomen or pelvis. Please note that all CT scans at this facility use dose modulation, iterative reconstruction, and/or weight-based dosing when appropriate to reduce radiation dose to as low as reasonably achievable. Dictated by Khloe Snider MD @ 08/18/2024 6:50:35 AM (Electronically Signed)
== END 2024-08-17 09:01 | disposition home or self-care (01) ==
LOC: CT 09:01
PROVIDERS: PCP Family Medicine; Visit Provider Internal Medicine Hematology & Oncology
DX: C34.32 Malignant neoplasm of lower lobe, left bronchus or lung (principal); K92.1 Melena
CPT/HCPCS: 36415; 36591; 71260; 74177; 82565; J1642; Q9967

== ENCOUNTER 2024-08-17 09:15 | Outpatient (RCR) | payer MEDICARE, OTHER, SELFPAY ==
[2024-03-23] MEDS: HEPARIN 500 UNIT/5 ML SYRINGE IVF (13:42)
[2024-03-23] MEDS: SODIUM CHLORIDE 0.9 % (FLUSH) 10 ML SYRINGE IVF (13:43)
[2024-08-17] MEDS: HEPARIN 500 UNIT/5 ML SYRINGE IVF (09:36)
[2024-08-17] MEDS: SODIUM CHLORIDE 0.9 % (FLUSH) 10 ML SYRINGE IVF (09:36)
== END 2024-09-19 23:59 | disposition home or self-care (01) ==
LOC: CCIC 09:15
PROVIDERS: PCP Family Medicine; Referring Provider Physician Assistant Medical; Visit Provider Internal Medicine
DX: C34.32 Malignant neoplasm of lower lobe, left bronchus or lung (principal)
CPT/HCPCS: 36415; 36591; 71260; 74177; 82565; J1642; Q9967

== ENCOUNTER 2024-10-16 09:14 | Emergency (ER) | payer MEDICARE, OTHER, SELFPAY ==
[2024-10-16 09:23] VITALS: BP 137/70; PULSE 95; RESP 18; TEMP 36.7; O2SAT 94; BMI 17.7
--- NOTE | 2024-10-16 09:49 | ED_ITS ---
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 Smiley her nurse from [place] [facility] did call to give us an update. Shmuel has a history of non-small cell lung cancer, now has small cell lung cancer with right iliac Mets. She did complete chemo radiation and maintenance immunotherapy for her non-small cell lung cancer of the left lung. She has started treatment with Tecentriq, carboplatin and etoposide, had her treatment October 05 through . She did get Neulasta on 10/09. She did see Dr. Cortez yesterday, had some mild low back pain. However overnight, her back pain in her mid lower back became severe at 10/10. She tried some Tylenol and Valium. She describes it as burning and throbbing, radiated out the sides but not down the legs. She felt it within her hips but it did not go down into her legs. She has no fevers or chills. She does have a history of atrial fibrillation and does endorse that this was problematic for about 5 days after treatment. She is feeling no chest symptoms now. She will occasionally feel a little discomfort in her right lung where she has the known cancer but no active chest pain. Her pain has improved now, is about a 3/10. They are concerned about potential bony metastases, she states they are trying the immune therapy for the right iliac bone and see if her response to that. She has had lot of radiation from her prior cancer treatment. If the right iliac metastases not responding to this, she may proceed with radiation. If she does have metastases in her spine, radiation might be considered and she is interested in having this evaluated. Her pain at this time is better. She states she did not take the oxycodone she has at home. This patient is also maintained on chronic vancomycin for history of recurrent C difficile colitis. Related Data Home Medications ?Medication ?Instructions ?Recorded ?Confirmed rosuvastatin 20 mg tablet 20 mg PO DAILY 10/15/22 10/16/24 vancomycin 125 mg capsule 125 mg PO DAILY 10/15/22 10/16/24 amlodipine 2.5 mg tablet 2.5 mg PO DAILY 06/24/23 10/16/24 oxycodone-acetaminophen 5 mg-325 0.5 tab PO Q6H PRN 06/24/23 10/16/24 mg tablet prochlorperazine maleate 10 mg 10 mg PO Q6H PRN nausea 06/24/23 10/16/24 tablet Magic Mouthwash 5 ml PO QID PRN #120 mL 07/06/23 07/15/23 (Lidocaine/Benadryl/Maalox) 120 mL suspension apixaban 5 mg tablet (Eliquis) 5 mg PO BID 09/13/23 10/16/24 losartan 100 mg tablet 100 mg PO DAILY 09/13/23 10/16/24 acetylcysteine 200 mg/mL (20 %) 3 ml BID 05/03/24 solution albuterol sulfate 2.5 mg/3 mL 1 mg 05/03/24 (0.083 %) solution for nebulization Previous Rx's ?Medication ?Instructions ?Recorded metoprolol tartrate 50 mg tablet 50 mg PO BID #60 tabs 06/27/23 benzonatate 100 mg capsule 100 mg PO TID 14 days #42 caps 07/10/23 ipratropium 0.5 mg-albuterol 3 mg 3 ml inhalation QID 30 days #120 mL 07/10/23 (2.5 mg base)/3 mL nebulization soln ondansetron 4 mg disintegrating 4 mg PO Q6H PRN 14 days #20 tabs 07/10/23 tablet azithromycin 500 mg tablet 500 mg PO DAILY 7 days #7 tabs 08/08/23 Allergies Allergy/AdvReac Type Severity Reaction Status Date / Time cefuroxime Allergy Severe Anaphylaxis Verified 10/16/24 09:38 codeine Allergy Severe Hypotension Verified 10/16/24 09:38 gatifloxacin (From Tequin) Allergy Severe Anaphylaxis Verified 10/16/24 09:38 hydrocodone (From Vicodin) Allergy Severe Hypertensio Verified 10/16/24 09:38 n iron (From Venofer) Allergy Severe Anaphylaxis Verified 10/16/24 09:38 meperidine (From Demerol) Allergy Severe Anaphylaxis Verified 10/16/24 09:38 morphine Allergy Severe SOB Verified 10/16/24 09:38 Penicillins Allergy Severe Anaphylaxis Verified 10/16/24 09:38 Quinolones Allergy Severe Anaphylaxis Verified 10/16/24 09:38 fentanyl Allergy Intermediate Verified 10/16/24 09:38 acetaminophen (From Panlor Allergy Unknown Unknown Verified 10/16/24 09:38 (hydrocodone-acetamin)) ampicillin (From Unasyn) Allergy Unknown Nausea Verified 10/16/24 09:38 diphenhydramine Allergy Unknown Unknown Verified 10/16/24 09:38 doxycycline Allergy Unknown other Verified 10/16/24 09:38 magnesium citrate Allergy Unknown Diarrhea Verified 10/16/24 09:38 metronidazole (From Flagyl) Allergy Unknown Flushing Verified 10/16/24 09:38 sulbactam (From Unasyn) Allergy Unknown Nausea Verified 10/16/24 09:38 sulfamethoxazole (From Allergy Unknown Nausea Verified 10/16/24 09:38 Sulfamethoxazole-Trimethoprim) trimethoprim (From Allergy Unknown Nausea Verified 10/16/24 09:38 Sulfamethoxazole-Trimethoprim) Review of Systems Status of ROS: Reports: 6 or more systems reviewed and unremarkable except as noted in History and below [facility] Medical History COPD (chronic obstructive pulmonary disease) ?J44.9 - Chronic obstructive pulmonary disease, unspecified (ICD-10) C. difficile colitis ?A04.72 - Enterocolitis due to Clostridium difficile, not specified as recurrent (ICD-10) Rash ?R21 - Rash and other nonspecific skin eruption (ICD-10) Radiation dermatitis ?L58.9 - Radiodermatitis, unspecified (ICD-10) Cerebral aneurysm ?I67.1 - Cerebral aneurysm, nonruptured (ICD-10) PVD (peripheral vascular disease) ?I73.9 - Peripheral vascular disease, unspecified (ICD-10) Intermittent atrial fibrillation ?I48.0 - Paroxysmal atrial fibrillation (ICD-10) Non-small cell carcinoma of left lung, stage 3 ?C34.92 - Malignant neoplasm of unspecified part of left bronchus or lung (ICD-10) Surgical History S/P colectomy ?Z90.49 - Acquired absence of other specified parts of digestive tract (ICD- 10) Social History What is your current living situation?: I presently have a place to live Problems where you live: no known problems Problems where you live details: no problems In the past 12 months, utilities in danger of being shut off: no In past 12 months, lack of transportation kept you from medical appts, meetings, work, or getting things needed for daily living: no In the past 12 mos, have been you worried that your food would run out before you had money to buy more?: never true In the past 12 mos, the food you bought just didn't last and you didn't have money to buy more?: never true Highest level of school completed/degree received: some college, no degree Smoking Status: Former smoker Do you use any of these nicotine containing products: None Second hand tobacco smoke exposure: Yes How often do you have a drink containing alcohol: monthly or less Alcohol type: beer How many standard drinks containing alcohol do you have on a typical day: 1 or 2 How often do you have six or more drinks on one occasion: Never AUDIT-C Alcohol total score: 1 Non-prescribed substance use: denies use Caffeine: Yes (not in the last 3 months) How often does anyone, including family, friends and others, physically hurt you : never How often does anyone, including family, friends and others, insult or talk down to you: never How often does anyone, including family, friends and others, threaten you with harm: never How often does anyone, including family, friends and others, scream or curse at you: never service: No Exam Const: Vital Signs, click to edit/add: Vital Signs - 24 hr 10/16/24 09:23 10/16/24 12:40 Temperature 98.0 F Pulse Rate [Left P ulse Oximeter] 95 65 Respiratory Rate 18 18 Blood Pressure [Ri ght Upper Arm] 137/70 132/85 Pulse Oximetry 94 94 Oxygen Delivery Me thod Room Air Room Air Shmuel is a very pleasant 74-year-old female, extremely well kept, looks very good today. Sclera clear, symmetrical facial function, it to speak in complete sentences. Lungs clear anteriorly, no tachypnea, no wheezing or crackles. CV mostly regular, do palpate her radial pulses I listen and she is mostly regular with occasional ectopy verses irregularity. Heart rate is slower in this still could be atrial fibrillation that is rate controlled. Reviewed with her that I would like to get an EKG which she does agree with. No significant murmur. Abdomen is soft, nontender nondistended, no organomegaly. Her pain is in the center low back, she takes her hands in shows me the area. It is in the lower lumbar to the upper sacral area. She has an old scar over the area where she has had prior surgery. It is not point tender now. She actually has good range of motion of her back, can get up and stand up is able to sit back down, range of motion is good. Lower extremity strength is observed to be normal through her gait and standing and moving about in the room. Documenting provider has reviewed patient's vital signs: yes Course Course ED Course: At this time will proceed with lumbar CT. I do not have the capacity to do emergent lumbar imaging on her at this time. We should be able to see adequately with lumbar CT and can move to MR imaging potentially later if needed. Otherwise, she does not needing thing for pain at this time. Will get an EKG just to see what her rhythm is, she certainly does not seem fast. Will get baseline labs on her today. She is in agreement with this plan. Reevaluation(s) Time of Reevaluation #1: 11:14 Reevaluation #1: Patient requesting Tylenol, will order 1000 mg. Time of Reevaluation #2: 11:35 Reevaluation #2: Have reviewed with patient that I talked to our radiologist. Her lumbar imaging is not showing any definite pathology on CT. We do have the capacity during lunch to do an MRI on her spine. Our radiologist does think that we should proceed with this given there is availability. She would like to do so, does have some claustrophobia. Will premedicate with Valium. She will need with and without contrast and thus will access her port or place an IV. Time of Reevaluation #3: 14:23 Reevaluation #3: Patient is having nausea, will give Zofran; awaiting MRI reading of lumbar spine. Additional Reevaluation(s): 2:49 p.m.: Have updated Shmuel that her MRI of her lumbar spine shows the right iliac crest metastases, degenerative changes of her lumbar spine but no new metastatic disease of the spine. She is quite happy to hear this. Will discharge her to home. She is wondering why her back pain would be so bad a week after her chemo and Neulasta; defer this question back to her oncologist, really do not feel that I have the expertise to answer that. She does have degenerative disease in her back. Vital Signs Vital signs: Initial Vital Signs Temperature 98.0 F 10/16/24 09:23 Temperature Source Temporal Artery Scan 10/16/24 09:23 Pulse Rate 95 10/16/24 09:23 Respiratory Rate 18 10/16/24 09:23 Blood Pressure 137/70 10/16/24 09:23 Blood Pressure Mean 92 10/16/24 09:23 Blood Pressure Position Sitting 10/16/24 09:23 Pulse Oximetry 94 10/16/24 09:23 Oxygen Delivery Method Room Air 10/16/24 09:23 Vital Signs Temperature 98.0 F 10/16/24 09:23 Pulse Rate 95 10/16/24 09:23 Respiratory Rate 18 10/16/24 09:23 Blood Pressure 137/70 10/16/24 09:23 Pulse Oximetry 94 10/16/24 09:23 Oxygen Delivery Method Room Air 10/16/24 09:23 Temperature 98.0 F 10/16/24 09:23 Pulse Rate 65 10/16/24 12:40 Respiratory Rate 18 10/16/24 12:40 Blood Pressure 132/85 10/16/24 12:40 Pulse Oximetry 94 10/16/24 12:40 Oxygen Delivery Method Room Air 10/16/24 12:40 Medications Administered Medications: Discontinued Medications Generic Name Dose Route Start Last Admin Trade Name Freq PRN Reason Stop Dose Admin Acetaminophen 1,000 mg 10/16/24 11:13 10/16/24 11:22 Acetaminophen 500 Mg Tablet PO 10/16/24 11:14 1,000 mg ONCE ONE Administration Diazepam 5 mg 10/16/24 11:38 10/16/24 12:03 Diazepam 5 Mg Tablet PO 10/16/24 11:39 5 mg ONCE ONE Administration Ondansetron HCl 4 mg 10/16/24 14:23 10/16/24 14:28 Ondansetron Odt 4 Mg Tab PO 10/16/24 14:24 Not Given ONCE ONE Ondansetron HCl 4 mg 10/16/24 14:25 10/16/24 14:27 Ondansetron 2 Mg/Ml Inj IVP 10/16/24 14:26 4 mg ONCE ONE Administration Medical Decision Making Lab Data Lab results reviewed: Yes I reviewed the patient's lab results Labs: Lab Results 10/16/24 Range/Units 10:17 WBC 8.23 (4.50-11.00) K/uL RBC 4.31 (4.00-5.20) m/uL Hgb 12.1 (12.0-16.0) gm/dL Hct 37.6 (33.0-51.0) % MCV 87 (80-100) fL MCH 28 (26-34) pg MCHC 32 (32-36) gm/dL RDW Coeff of Álvaro 13.7 (11.5-15.5) % Plt Count 100 L (140-440) K/uL Neut % (Auto) 66.4 (42.0-72.0) % Lymph % (Auto) 5.8 L (20-44) % Webster % (Auto) 16.0 H (0.0-11.0) % Eos % (Auto) 0.2 (0.0-7.0) % Baso % (Auto) 0.2 (0.0-3.0) % Neut # (Auto) 5.45 (1.7-7.0) K/uL Lymph # (Auto) 0.50 L (0.90-2.90) K/uL Webster # (Auto) 1.30 H (0.00-0.90) K/UL Eos # (Auto) 0.02 (0.00-0.50) K/uL Baso # (Auto) 0.02 (0.00-0.30) K/uL Abs Immat Gran (auto) 0.94 H (0.00-0.30) K/uL Imm/Tot Granulo (auto) 11.4 % Diff Slide Review Acceptable Review (Acceptable) Sodium 136 (135-149) mmol/L Potassium 3.9 (3.6-5.1) mmol/L Chloride 106 (96-114) mmol/L Carbon Dioxide 21 (20-32) mmol/L Anion Gap 9 (7-15) mEq/L BUN 7 (7-30) mg/dL Creatinine 0.5 (0.5-1.5) mg/dL Estimated Creat Clear 36.40 Estimated GFR 98 ml/min Glucose 86 (60-115) mg/dL Lactate 1.6 (0.5-1.9) mmol/L Calcium 8.9 (8.4-10.6) mg/dL Total Bilirubin 0.5 (0.1-1.5) mg/dL AST 28 (12-35) U/L ALT 18 (4-35) U/L Alkaline Phosphatase 72 (40-150) U/L C-Reactive Protein 5.9 H (0.5-1.0) mg/dL Total Protein 6.3 (6.0-8.3) g/dL Albumin 3.8 (3.3-5.0) g/dL Imaging Data CT lumbar spine: Attestation: I have reviewed the pertinent imaging results. Radiologist's impression: Patient: SHMUEL RIVERA Facility:?[facility] Patient ID:?[id number] Site Patient ID:?[id number]. Site :?[id number] Study:?CT-Spine Lumbar W/O-10/16/2024 10:43:27 AM Ordering Physician:Hannah Sanchez Preliminary Report: Lung base findings consistent with the patient`s known malignancy. Demineralized osseous structures. There is no evidence of osseous metastatic disease from approximally the bottom half of T12 through approximately S2. The very limited visualized portion of the innominate bones shows no evidence of metastatic disease. Degenerative change identified mainly at the facet joints of the mid and lower lumbar spine and the disc space of L5-S1. No high-grade central stenosis at any level Dictated by Avinash Gibson MD @ 10/16/2024 10:51:50 AM Read by:?Avinash Gibson MD @10/16/2024 10:51:57 AM MR - Other: Attestation: I have reviewed the pertinent imaging results. Radiologist's impression: Patient: SHMUEL RIVERA Facility:?[facility] Patient ID:?[id number] Site Patient ID:?[id number]. Site :?[id number] Study:?MRI-Spine Lumbar WO/W DOTAREM 10ML-10/16/2024 2:18:05 PM Ordering Physician:Hannah Sanchez Final Report: INDICATION: Low back pain. Lung cancer. TECHNIQUE: Multiplanar multisequence MR imaging of the lumbar spine prior to and following intravenous contrast. COMPARISON: CT lumbar spine 10/16/2024. FINDINGS: [id number] leftward lumbar curvature. Mild straightening of the lumbar lordosis. Vertebral body heights maintained. No acute fracture. Enhancing 2 cm T1 hypointense lesion within the medial right iliac bone, concerning for an osseous metastasis (series 8, image 41. Normal conus terminates at L1. T12-L1 and L1-2: Disc degeneration. No spinal canal or neural foraminal narrowing. L2-3: Trace retrolisthesis. Moderate disc degeneration. Posterior disc bulge. Shallow superiorly migrated left central disc extrusion. No spinal canal or neural foraminal narrowing. L3-4: Trace retrolisthesis. Moderate disc degeneration. Posterior disc bulge. Mild facet arthropathy. No spinal canal or neural foraminal narrowing. L4-5: Moderate disc degeneration. Posterior disc bulge. Mild facet arthropathy. Mild spinal canal narrowing. Mild to moderate narrowing of the lateral recesses. No neural foraminal narrowing. L5-S1: Trace retrolisthesis. Disc bulging and endplate spondylotic ridging eccentric to the left. Advanced disc degeneration and disc height loss. Minimal endplate edema. Mild facet arthropathy. No spinal canal narrowing. Mild left without right neural foraminal narrowing. Sacroiliac joint degenerative changes. Multiple renal cysts. IMPRESSION: 1. Enhancing 2 cm T1 hypointense lesion within the medial right iliac bone, concerning for an osseous metastasis. 2. Multilevel lumbar spondylosis without spinal canal or neural foraminal stenosis. 3. At L4-5, [id number] narrowing of the lateral recesses. Dictated by Tobin Whitman MD @ 10/16/2024 2:38:01 PM (Electronic Signature) ECG Data Attestation: I personally reviewed and interpreted this ECG as follows: (Normal sinus rhythm, 76 beats per minute. No active ischemia, flipped T-waves lead V1 V2. No associated ST segment changes with these T-waves.) Prior ECG tracings: available for review (Compared to 08/08/2023.) Discharge Plan Discharge Clinical Impression: Low back pain Qualifiers: Chronicity: acute Back pain laterality: midline Sciatica presence: without sciatica Qualified Code(s): M54.50 - Low back pain, unspecified Small cell carcinoma of lung Qualifiers: Laterality: left Lung location: unspecified part of lung Qualified Code(s): C34.92 - Malignant neoplasm of unspecified part of left bronchus or lung Patient Disposition: Home, Self-Care Condition: Stable Instructions: Acute Low Back Pain (ED) Additional Instructions: Can bring your MRI report to your oncologists, talk to them about the acute back pain. Unclear if this has any causal association with your chemotherapy or Neul helen but defer those questions to the oncologist. Can use your pain medications at home for recurrent pain. If you do have low back pain that is associated with pain going down a leg, loss of bowel or bladder function or associated with motor weakness in the leg, need to be re-evaluated. If these symptoms do present, could be a pinched nerve or sciatica. Activity Level: Activity as Tolerated Prescriptions: No Action losartan 100 mg tablet 100 mg PO DAILY Eliquis 5 mg tablet 5 mg PO BID vancomycin 125 mg capsule 125 mg PO DAILY Patient Comments: TAKE ONE CAPSULE BY MOUTH EVERY DAY rosuvastatin 20 mg tablet 20 mg PO DAILY prochlorperazine maleate 10 mg tablet 10 mg PO Q6H PRN (Reason: nausea) oxycodone-acetaminophen 5-325 mg tablet 0.5 tab PO Q6H PRN amlodipine 2.5 mg tablet 2.5 mg PO DAILY metoprolol tartrate 50 mg Tablet 50 mg PO BID Qty: 60 0RF azithromycin 500 mg tablet 500 mg PO DAILY 7 Days Qty: 7 0RF Magic Mouthwash (Lidocaine/Benadryl/Maalox) 120 mL suspension 5 ml PO QID PRNQty: 120 benzonatate 100 mg Capsule 100 mg PO TID 14 Days Qty: 42 0RF ondansetron 4 mg Tablet,Disintegrating 4 mg PO Q6H PRN14 Days Qty: 20 1RF ipratropium-albuterol 0.5 mg-3 mg(2.5 mg base)/3 mL Solution For Nebulization 3 ml inhalation QID 30 Days Qty: 120 1RF acetylcysteine 200 mg/mL (20 %) solution 3 ml BID albuterol sulfate 2.5 mg /3 mL (0.083 %) solution for nebulization 1 mg Follow Up/Referrals: Willam Jaramillo MD [Primary Care Provider] - Stand Alone Forms: Barcoding Info Instructions
--- NOTE | 2024-10-16 10:07 | CRLHL7_ITS ---
For Patients: As a result of the Century Cures Act, medical imaging exams and procedure reports are released immediately into your electronic medical record. You may view this report before your referring provider. If you have questions, please contact your health care provider. 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 Comparison: Same day MRI lumbar spine Findings: Lumbar levoconvex curvature, with preserved lordosis. No significant spondylolisthesis. Vertebral body heights are maintained. No acute osseous abnormality. No focal lytic or blastic osseous lesion identified. The reported right iliac metastasis is not apparent by CT. Scattered spondylosis, with mild lateral recess narrowing on the left at L3-4, bilaterally at L4-5. No high-grade central canal or neural foraminal stenosis. Bibasilar pulmonary opacities. Postsurgical changes at the GE junction and cholecystectomy changes. Aortoiliac atherosclerotic plaquing. Colonic diverticulosis. Degenerative changes at the SI joints. Impression: 1. Patient`s reported right iliac metastasis is not apparent by CT. 2. No acute osseous abnormality or aggressive osseous lesion identified. 3. Scattered spondylosis without high-grade neural foraminal or spinal canal stenosis. Please note that all CT scans at this facility use dose modulation, iterative reconstruction, and/or weight-based dosing when appropriate to reduce radiation dose to as low as reasonably achievable. Dictated by Marie Lamb MD @ 10/16/2024 3:08:08 PM (Electronically Signed)
[2024-10-16 10:23] LABS: Lactate* 1.6 mmol/L (0.5-1.9)
--- OUTSIDE RECORDS SUMMARY | 2024-10-16 10:25 | XMS_ITS | Clinical Summary ---
Author Organization [facility] Address [place], [place] [address] Care Team Providers Care Vector Control Specialist Name Role Phone Tamiko Ruiz MD Unavailable [phone] Willam Jaramillo MD Primary Care Provider Mary Kinney RN, BSN Unavailable [phone] Tobin Ardon MD Unavailable [phone] Allergies Active Allergy Reactions Criticality Noted Date Comments Acetaminophen Hypertension High 10/15/2022 Amphetamine Other - Describe In Comment Field 12/11/2012 Benzedrine- Hypertension, nausea Cefuroxime Anaphylaxis,Dyspnea, Hypertension,Tachyca rdia High 12/10/2013 Blood pressure rises, heart races and pt has a hard time breathing Meperidine Shortness Of Breath,Hypertension, Tachycardia Medium 07/02/2011 Doxycycline Other - Describe In Comment Field 04/07/2020 Burning sensation through whole body Fentanyl Nausea And Vomiting High 09/16/2024 severe nausea and vomiting requiring ER visit Metronidazole Flushing Medium 03/23/2020 Nausea, flushing, felt [...] pt has a hard time breathing Medications albuterol HFA 90 mcg/actuation inhalerIndicati ons:Chronic obstructive pulmonary disease, unspecified COPD type (HC) Inhale 1-2 Puffs by mouth every 4 hours if needed. 1 Inhaler 6 07/13/20 19 Active NebulizerIndica tions:COPD exacerbation (HC) Nebulizer, disposable neb kit x 4, reuseable neb kit x 1, mask x 1, filters x 1. Frequency of use: daily; Medication: duoneb Length of need:lifetime 1 Device 12/21/19 20 Active albuterol (PROVENTIL) 0.083 % neb solutionIndicat ions:COPD exacerbation (HC) Inhale 3 mL via a nebulizer every 4 hours if needed (sob / wheezing). 1 box 1 01/07/20 20 Active albuterol-iprat ropium (DUONEB) (2.5-0.5 mg) in 3 mL NEBULIZATION solutionIndicat ions:COPD with chronic bronchitis (HC) INHALE 3 ML VIA A NEBULIZER 4 TIMES DAILY. 1 box 2 04/19/20 20 Active vancomycin (FIRVANQ) 25 mg/mL solr Take 125 mg by mouth. 04/27/20 21 Active furosemide (LASIX) 20 mg tabletIndicatio ns:Pedal edema Take 1 Tablet (20 mg) by mouth every morning. 5 Tablet 08/05/20 23 Active acetylcysteine 200 mg/mL (20%) neb solution INHALE 3 MILLILITERS BY NEBULIZATION ROUTE 2 TIMES EVERY DAY* 02/07/20 24 Active rosuvastatin (CRESTOR) 20 mg tabletIndicatio ns:Coronary artery disease involving [place] coronary artery of [place] heart without angina pectoris Take 1 Tablet (20 mg) by mouth at bedtime. 90 Tablet 3 03/02/20 24 Active amLODIPine (NORVASC) 5 mg tabletIndicatio ns:HTN (hypertension) Take 1 Tablet (5 mg) by mouth once daily. 90 Tablet 3 05/05/20 24 Active budesonide-form oteroL (Symbicort) 160-4.5 mcg/actuation (160-4.5 mcg each actuation) inhalerIndicati ons:Chronic obstructive pulmonary disease, unspecified COPD type (HC) INHALE 2 PUFFS BY MOUTH TWICE A DAY 30.6 g 06/08/20 24 Active apixaban (Eliquis) 5 mg tabletIndicatio ns:Atrial fibrillation, unspecified type (HC) TAKE ONE TABLET BY MOUTH TWICE DAILY 180 Tablet 1 07/16/20 24 Active metoprolol succinate SR (TOPROL XL) 200 mg Sustained-Relea se tabletIndicatio ns:Paroxysmal atrial fibrillation (HC) Take 1 Tablet (200 mg) by mouth once daily. DUE FOR ANNUAL FOLLOW UP TO RECEIVE REFILLS: [phone] 90 Tablet 3 08/25/20 24 Active losartan (COZAAR) 100 mg tabletIndicatio ns:HTN (hypertension) Take 1 Tablet (100 mg) by mouth once daily. 90 Tablet 09/26/20 24 Active losartan (COZAAR) 100 mg tabletIndicatio ns:HTN (hypertension) Take 1 Tablet (100 mg) by mouth once daily. 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 Follows with Dr. Cortez at [place] [facility]. Had radiation, on immunotherapy for 1 year Nodule of left lung 03/19/2023 Overview (03/19/2023): 1.[address] in [place] 03/10/2023 Supraventricular tachycardia 02/18/2023 Coronary artery disease [...] Colon cancer screening 02/23/2013 Overview (09/04/2015): 2012 [place] colonoscopy positive for: diverticula and 10 mm polyp at the hepatic flexure with pathology showing tubular adenoma with low-grade dysplasia, Dr. Kruse at [place] recommend repeat colonoscopy in 3 years in 2016. Adjustment disorder with depressed mood 08/29/20 12 Overview (10/09/2012): Aug 2012: family stress, started wellbutrin SR. September 2012: dose adjusted to wellbutrin SR 100mg twice daily. Tobacco use disorder 08/29/2012 Overview (07/30/2013): Successfully Quit March 2013. Resolved Problems Problem Noted Date Diagnosed Date Resolved Date Carotid aneurysm, right 06/20/2022 05/2 Overview (06/20/2022): CT 03/2022- Incidental shallow 2 [...] Chris recommended CT of Colonography. Cedrick at [place] Nov 2012, see consult note. Counseling for [...] Encounters Date Type Department Care Team Description 10/12/2024 Nurse Triage [facility] [address] [place] [address] Willam Jaramillo MD Low Blood Pressure 09/30/2024 Telephone [facility] [address] [place] [id number] Carissa Givens, RN Results 09/29/2024 9:51 AM SURGICAL GARMENT ASSEMBLER Anesthesia Event [facility] [address] [address] Alisha Dumont MD Bottcher, Rachel, THEATRICAL RIGGER Student 09/29/2024 9:10 AM SURGICAL GARMENT ASSEMBLER - 09/29/2024 10:43 AM SURGICAL GARMENT ASSEMBLER Surgery [facility] [address] [place] [address] Reji Correa MD flexible bronchoscopy with endobronchial biops7, robotic bronchoscopy with biopsy, endobronchial ultrasound with biopsy 09/29/2024 6:48 AM SURGICAL GARMENT ASSEMBLER - 09/29/2024 2:18 PM SURGICAL GARMENT ASSEMBLER Hospital Encounter [facility] [address] [address] Reji Correa MD Lymphadenopathy Discharge Disposition: Home Self Care 09/29/2024 Travel 09/24/2024 Orders Only [facility] [address] [address] Reji Correa MD <No scans attached> 09/22/2024 Refill [facility] [address] [place] [address] Willam Jaramillo MD Refill Request (Losartan) 09/16/2024 7:03 AM SURGICAL GARMENT ASSEMBLER - 09/16/2024 11:59 PM SURGICAL GARMENT ASSEMBLER Hospital Encounter [facility] [address] [place] [address] Zahira Cortez MBBS Adenocarcinoma of lower lobe of left lung (HC) 09/16/2024 Travel 09/15/2024 Transcribe Orders [facility] [place] [phone] Zahira Cortez MBBS 09/09/2024 10:30 AM SURGICAL GARMENT ASSEMBLER Orders Only [address] [address] Lab 09/09/2024 Travel 09/08/[address] [address] Willam Jaramillo MD Questions (lab order ) 09/07/[address] [address] Willam Jaramillo MD Questions (return a call ) 09/04/[address] [address] Willam Jaramillo MD Medication Management (Eliquis) 08/26/2024 Orders Only [facility] [address] [place] [address] Zahira Cortez MBBS 1 scan: (1-Ord) diag order 08/25/2024 Refill [facility] - [address] [place] [address] Dannie Beckman MD Refill Request 08/20/2024 Refill [facility] [place] [address] [facility] [address] [place] [address] Dannie Beckman MD Refill Request 08/18/[address] [address] Willam Jaramillo MD Refill Request (Metoprolol/) 08/17/2024 Orders Only [facility] Scanner 1 scan: (1-Ord) [facility], CT CHEST ABDOMEN PELV W CON, 08/17/2024 from Last 3 Months Immunizations Name Administration [...] alcohol) 2-3 a week - More sometimes. [facility] Utilities Answer Date Recorded Do you have trouble paying f or utilities (for example, heat, electricity, water, phone)? Yes 03/02/2024 PHQ-2 Answer Date Recorded PHQ-2 TOTAL SCORE [...] is your housing situation today? 1 03/02/2024 Comments No Sex and Gender Information Value Date Recorded Sex Assigned at Not on file Legal Sex Female 5:33 AM SURGICAL GARMENT ASSEMBLER Gender Identity Not on file Sexual Orientation Not on file Obstetrics History Last Filed Vital Signs Vital Sign Reading Time Taken Comments Blood Pressure 118/68 09/29/2024 1:30 PM SURGICAL GARMENT ASSEMBLER Pulse 76 09/29/2024 1:30 PM SURGICAL GARMENT ASSEMBLER Temperature 36 C (96.8 F) 09/29/2024 1:30 PM SURGICAL GARMENT ASSEMBLER Respiratory Rate 16 09/29/2024 1:30 PM SURGICAL GARMENT ASSEMBLER Oxygen Saturation 90% 09/29/2024 1:30 PM SURGICAL GARMENT ASSEMBLER Inhaled Oxygen Concentration - - Weight 49 kg (108 lb) 09/29/2024 8:22 AM SURGICAL GARMENT ASSEMBLER Height 162.6 cm (5' 4) 09/29/2024 8:22 AM SURGICAL GARMENT ASSEMBLER Body Mass Index 18.54 09/29/2024 8:22 AM SURGICAL GARMENT ASSEMBLER Plan of Treatment Upcoming Encounters Date Type Department Care Team (Late st Contact Info) Description 10/22/2024 11:30 AM SURGICAL GARMENT ASSEMBLER Office Visit [facility] [address] [place], [place] [id number] [place] [address] [place] [address] Health Maintenance Due Date Last Done Comments RSV vaccine for adults or (1 - Risk 60-74 years 1-dose series) 2010 DEXA/DXA scan for age 65+ 2015 Zoster (shingles) series for age 50+ (2 of 2) 04/29/2023 03/04/2023, 06/11/2011 COVID-19 vaccine series ( season) 2024 08/28/2023, 08/01/2022, 02/01/2022, Additional history exists Influenza for age 65+ 06/14/2024 08/12/2023 , 08/01/2022, 07/26/2021, Additional history exists BMI (ht and wt on same day) for age 18+ 03/02/2025 03/02/2024, 04/09/2023, 02/28/2023, Additional history exists Depression screening for age 12+ 03/02/2025 03/02/2024, 02/28/2023, 07/26/2021, Additional history exists Medicare Wellness for age 65+ 03/03/2025, 02/28/2023, 07/26/2021, Additional history exists Low Dose CT (for lung CA) ag e 50-80 09/29/2025 09/29/2024, 10/10/2023, 07/25/2023, Additional history exists Colonoscopy through age 75 12/12/202512/12, 12/11/2019, 11/06/2012 Tetanus booster 06/19/2026 06/19/2016 Lipids for age 45-75 03/02/2029 03/02/2024, 07/16/2022, 04/04/2021, Additional history exists Tdap Completed 06/19/2016 Pneumococcal series for age 50+ Completed 0, 08/27/2019 Hepatitis C screening for ag e 18-79 Completed 07/20/2020 Procedures Procedure Name Priority Date/Time Associated Diagnosis Comments XR CHEST 1 VIEW PORTABLE STAT 09/29/2024 11:55 AM SURGICAL GARMENT ASSEMBLER XR FLUORO BRONCHOSCOPY Routine 09/29/2024 10:42 AM SURGICAL GARMENT ASSEMBLER ENDOTRACHEAL TUBE Routine 09/29/2024 10: 18 AM SURGICAL GARMENT ASSEMBLER PATH NON HAND POLISHER CYTOLOGY Today 09/29/2024 10:18 AM SURGICAL GARMENT ASSEMBLER BRONCHOSCOPY ENDOBRONCHIAL ULTRASOUND FINE NEEDLE ASPIRATE Tier 2 09/29/2024 9:33 AM SURGICAL GARMENT ASSEMBLER Lymphadenopathy Lung nodule Case Notes Ion robot ROBOTIC ASSISTED BRONCHOSCOPY ION Tier 2 09/29/2024 9:33 AM SURGICAL GARMENT ASSEMBLER Lymphadenopathy Lung nodule Case Notes Ion robot PROTIME-INR Preop 09/29/2024 8:17 AM SURGICAL GARMENT ASSEMBLER CT CHEST WO THALIA 09/29/2024 7:30 AM SURGICAL GARMENT ASSEMBLER Lymphadenopathy SCAN-CARDIAC STRIP 09/29/2024 12 :00 AM SURGICAL GARMENT ASSEMBLER CT BIOPSY BONE DEEP STAT 09/16/2024 9 :27 AM SURGICAL GARMENT ASSEMBLER Adenocarcinoma of lower lobe of left lung (HC) PATH FNA CYTOLOGY ASP CYTOLOGY Today 09/16/2024 9:13 AM SURGICAL GARMENT ASSEMBLER HEMOGLOBIN STAT 09/16/2024 7:17 AM SURGICAL GARMENT ASSEMBLER PLATELET COUNT STAT 09/16/2024 7:17 AM SURGICAL GARMENT ASSEMBLER PROTIME-INR STAT 09/16/2024 7:17 AM SURGICAL GARMENT ASSEMBLER SCAN-CT INTERPRETATION 08/17/2024 12:00 AM SURGICAL GARMENT ASSEMBLER LIPID PANEL W REFLEX MEASURED LDL Routine 03/02/2024 10:13 AM CDT Lipid screening SCAN-COLONOSCOPY 12/12/2020 12:0 0 AM SURGICAL GARMENT ASSEMBLER ANTI HCV Routine 07/20/2020 11:00 AM CDT Need for hepatitis C screening test from Last 3 Months or Most Recently Relevant to Health Maintenance Results * XR CHEST 1 VIEW PORTABLE (09/29/2024 11:55 AM SURGICAL GARMENT ASSEMBLER) Anatomical Region Laterality Modality HEART, THORAX, CHEST Digital Rad iography 09/29/2024 12:0 9 PM SURGICAL GARMENT ASSEMBLER Narrative 09/29/2024 12:09 PM SURGICAL GARMENT ASSEMBLER For Patients: As a result of the Cures Act, medical imaging exams and procedure reports are released immediately into your electronic medical record. You may view this report before your referring provider. If you have questions, please contact your health care provider. Indication: : Postprocedure TECHNIQUE: Single-view chest. Comparison x-ray 04/12/2023 FINDINGS: Right Port-A-Cath at the cavoatrial junction clips at the GE junction. Left hilar irregular opacity. No pneumothorax is seen no effusion. Dictated by Khloe Snider MD @ 09/29/2024 12:09:14 PM (Electronically Signed) Procedure Note Khloe Snider MD - 09/29/2024 For Patients: As a result of the Cures Act, medical imagingexams and procedure reports are released immediately into your electronicmedical record. You may view this report before your referring provider.If you have questions, please contact your health care provider. Indication: : Postprocedure TECHNIQUE: Single-view chest. Comparison x-ray 04/12/2023 FINDINGS: Right Port-A-Cath at the cavoatrial junction clips at the GE junction.Left hilar irregular opacity. No pneumothorax is seen no effusion. Dictated by Khloe Snider MD @ 09/29/2024 12:09:14 PM (Electronically Signed) [facility] Final Re sult * XR FLUORO BRONCHOSCOPY (09/29/2024 10:42 AM SURGICAL GARMENT ASSEMBLER) Anatomical Region Laterality Modality CHEST Other Narrative 09/29/2024 10:03 AM SURGICAL GARMENT ASSEMBLER 3 minutes fluoroscopy time was provided. See operative/procedure report for further information. Reji Correa MD FLUOROSCOPY Final R esult * ETT (09/29/2024 10:18 AM SURGICAL GARMENT ASSEMBLER) Narrative Riana Hong CRNA Student - 09/29/2024 10:18 AM SURGICAL GARMENT ASSEMBLER Riana Hong CRNA Student 09/29/2024 10:19 AM Procedure: ETT Patient location during procedure: OR ETT Properties Mask Ventilation: easy Final Technique: direct laryngoscopy Type: straight Location: oral Cuffed: yes Tube Size: 8.0 mm Stylet: yes Laryngoscope Blade: Mac Blade Size: 3 Cormack-Lehane Grade View: 1 Insertion Attempts: 1 Placement Verification: auscultation, end tidal CO2 and symmetrical chest wall movement Assessment: pharynx clear, atraumatic and dentition unchanged Secured at: 20 Measured From: teeth Tooth guard used and removed: yes Difficulty: 0 (not difficult) us Alisha Dumont MD ANESTHESIA PX NOTE ORDERABLE S Final Result * PATH NON HAND POLISHER CYTOLOGY (09/29/2024 10:18 AM SURGICAL GARMENT ASSEMBLER) Case Report Medical Cytology Report Case: [id number] Authorizing Provider: Reji Correa MD Collected: 09/29/2024 1018 Ordering Location: [facility] Received: 09/29/2024 1125 [facility] Pathologist: Shivani Rodriguez DO Specimens: A) - Left Lower Lobe, Left Lower Lobe Lung Nodule. FNA Passes: 4 Forceps: 4 B) - Left Lower Lobe, Left Lower Lobe Basilar Lung Endobronchial Mass. Forcep passes: 3 C) - Left Lower Lobe, left lower lobe mainstem bronchus lung D) - Level 7 Lymph Node, Passes: 3 E) - Station 11R Interlobar Lymph Node, Passes: 3 09/30/2024 2:40 PM SURGICAL GARMENT ASSEMBLER [facility]AL LAB[facility] Final Diagnosis A) LUNG, LEFT LOWER LOBE NODULE, ROBOTIC BRONCHOSCOPY-GUID ED TRANSBRONCHIAL FINE-NEEDLE ASPIRATION AND FORCEPS BIOPSY WITH TOUCH IMPRINTS: 1. Positive for malignancy, small cell carcinoma 2. See comment B) LUNG, LEFT LOWER LOBE BASILAR ENDOBRONCHIAL MASS, FORCEPS BIOPSY WITH TOUCH IMPRINTS: 1. Positive for malignancy, small cell carcinoma 2. See comment C) LUNG, LEFT LOWER LOBE, DISTAL MAINSTEM BRONCHUS, FORCEPS BIOPSY WITH TOUCH IMPRINTS: 1. Positive for malignancy, small cell carcinoma 2. See comment D) LYMPH NODE, LEVEL 7, ENDOBRONCHIAL ULTRASOUND-GUIDED FINE-NEEDLE ASPIRATION WITH CELL BLOCK: 1. Positive for malignancy, metastatic small cell carcinoma 2. Lymphocytes present, consistent with lymph node sampling E) LYMPH NODE, STATION 11R (INTERLOBAR), ENDOBRONCHIAL ULTRASOUND-GUIDED FINE-NEEDLE ASPIRATION WITH CELL BLOCK: 1. Positive for malignancy, metastatic small cell carcinoma 2. Lymphocytes present, consistent with lymph node sampling 09/30/2024 2:40 PM SURGICAL GARMENT ASSEMBLER [facility] ENTRAL LABORATORY Comment The tumor is cytologically similar to the small cell carcinoma involving the patient's recent iliac bone biopsy ([id number] reviewed for morphologic comparison). The tumor is cytologically DIFFERENT from the adenocarcinoma involving the left lower lobe in 2022 ([id number] reviewed for morphologic comparison--the adenocarcinoma showed clear evidence of acinar growth and no small cell component was identified, including on retrospective review). Possible differential diagnostic considerations include a new primary small cell carcinoma versus a prior combined small cell carcinoma in which only the adenocarcinoma component was sampled on the patient's previous biopsy. Select slides from parts A & B of case seen in consultation with Dr. Roque who agrees with small cell carcinoma. Dr. Rodriguez discussed these findings with Dr. Reji Correa on 09/30/2024. LUNG ANCILLARY TESTING PROTOCOL This patient's sample does NOT meet [facility] Committee criteria* for reflex testing. If there is a need for ancillary tests, please contact the [facility] ([phone]). Slides available for [facility] NGS testing: E1-2 Blocks available for [facility] NGS testing: E2 Blocks available for tests using immunostains and/or FISH (requiring 100 cells): E2 Blocks available for send out (outside vendor) testing requiring 5 x 5 mm of tumor: E2 *[facility] reflex testing criteria: Stage IV pulmonary non-small cell carcinoma OR Tumor size >= 4 cm, or lymph node involvement, pulmonary non-small cell carcinoma, neoadjuvant setting OR Resected stage IB - IIIB pulmonary non-small cell carcinoma, adjuvant setting (if not previously performed) - [facility] Lung NGS panel (EGFR, ALK, ROS1, RET, MET, KRAS, BRAF, HRAS, NRAS, ERBB2, NTRK1/2/3) - [facility] PD-L1 SP263 - If RNA NGS fusion analysis fails, FISH for ALK and ROS1 fusion will be attempted 09/30/2024 2:40 PM SURGICAL GARMENT ASSEMBLER [facility] Clinical Information The patient is a 74-year-old with a 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 The patient had a prior diagnosis of adenocarcinoma consistent with pulmonary primary involving the left lower lobe and station 7 and 4 L lymph nodes ([id number]; [facility] NGS was positive for a KRAS mutation). The patient was treated with definitive chemoradiation therapy and immunotherapy for her lung adenocarcinoma. Follow-up imaging revealed increase in size of left perihilar soft tissue thickening. 09/30/2024 2:40 PM SURGICAL GARMENT ASSEMBLER [facility]UT LABORAT[facility] Gross Description A) Received identified as Left lower lobe lung nodule is a fine needle aspiration and forceps biopsy specimen. A3 and A4 The forceps biopsy sampling measures 0.1 cm x 0.2 cm in aggregate. The following were received: -8 Air dried slides -2 Formalin vial -1 CytoLyt vial -1 RPMI vial The following were prepared from the specimen submitted: -8 Diff-Quik stained slides -1 Papanicolaou stained ThinPrep slide -3 H&E stained cell block slides A2 Cell block material was removed from the patient and placed directly in formalin at 1035 on 09/29/24 and fixed in formalin at least 6 hours and no more than 72 hours. A3 Cell block material was removed from the patient and placed directly in formalin at 1038 on 09/29/24 and fixed in formalin at least 6 hours and no more than 72 hours. A4 Cell block material was removed from the patient and placed directly in formalin at 1038 on 09/29/24 and fixed in formalin at least 6 hours and no more than 72 hours. B) Received identified as Left Lower Lobe Basilar Lung Endobronchial Mass is a forceps biopsy specimen. The forceps biopsy sampling measures 0.1 cm x 0.2 cm in aggregate. The specimen consists of: -3 Air dried slides -1 Formalin vial -0 RPMI vials The following were prepared from the specimen submitted: -3 Diff-Quik stained slides -1 H&E stained cell block slide The biopsy material is entirely submitted in 1 cassette. B2 Cell block material was removed from the patient and placed directly in formalin at 1046 on 09/29/24 and fixed in formalin at least 6 hours and no more than 72 hours. C) Received identified as left lower lobe mainstem bronchus lung is a forceps biopsy specimen. The forceps biopsy sampling measures 0.1 cm x 0.2 cm in aggregate. The specimen consists of: -3 Air dried slides -1 Formalin vial -0 RPMI vials The following were prepared from the specimen submitted: -3 Diff-Quik stained slides -1 H&E stained cell block slide The biopsy material is entirely submitted in 1 cassette. C2 Cell block material was removed from the patient and placed directly in formalin at 1050 on 09/29/24 and fixed in formalin at least 6 hours and no more than 72 hours. D) Received identified as Level 7 lymph node, is a fine needle aspirate specimen. The specimen consists of: -3 Air dried slides -1 CytoLyt vial -0 RPMI vials -1 Formalin vial The following were prepared from the specimen submitted: -3 Diff-Quik stained slides -1 Papanicolaou stained ThinPrep slide -1 H&E stained cell block slide D2 Cell block material was removed from the patient and placed directly in formalin at 1100 on 09/29/24 and fixed in formalin at least 6 hours and no more than 72 hours. E) Received identified as Station 11R interlobar lymph node, is a fine needle aspirate specimen. The specimen consists of: -3 Air dried slides -1 CytoLyt vial -0 RPMI vials -1 Formalin vial The following were prepared from the specimen submitted: -3 Diff-Quik stained slides -1 Papanicolaou stained ThinPrep slide -1 H&E stained cell block slide E2 Cell block material was removed from the patient and placed directly in formalin at 1105 on 09/29/24 and fixed in formalin at least 6 hours and no more than 72 hours. 09/30/2024 2:40 PM SURGICAL GARMENT ASSEMBLER [facility] Adequacy Assessment A-E) Hayes assessed adequacy from the air-dried smears at the time of the procedure with an impression of Adequate. 09/30/2024 2:40 PM SURGICAL GARMENT ASSEMBLER [facility] Microscopic Description Specimen adequacy: Adequate for interpretation. All slides were reviewed. The microscopic appearance substantiates the diagnosis. Immunohistochemic al stains were performed on block A2, and the results the tumor cells are summarized below: Cytokeratin TERRI: Positive Synaptophysin: Positive (patchy) TTF-1: Positive Immunohistochemic al stains were performed on block B2, and the results the tumor cells are summarized below: Cytokeratin TERRI: Positive Synaptophysin: Positive (patchy) TTF-1: Positive 09/30/2024 2:40 PM SURGICAL GARMENT ASSEMBLER [facility] Additional Information Cytology is screened at [facility] - [address], [place] [address] and [facility] - [address], [place] [address] and [facility] - [address] [place] [address] Interpreted at [facility] - [address], [place] [address] Immunohistochemis try controls were reviewed and approved by the pathologist during this examination. 09/30/2024 2:40 PM SURGICAL GARMENT ASSEMBLER [facility] Aspirate (Left Lower Lobe) 09/29/2024 10:18 AM SURGICAL GARMENT ASSEMBLER 09/29/2024 11:25 AM SURGICAL GARMENT ASSEMBLER Specimen obtained by aspiration (specimen) (Left Lower Lobe) 09/29/2024 10:40 AM SURGICAL GARMENT ASSEMBLER 09/29/2024 11:25 AM SURGICAL GARMENT ASSEMBLER Specimen obtained by aspiration (specimen) (Left Lower Lobe) 09/29/2024 10:43 AM SURGICAL GARMENT ASSEMBLER 09/29/2024 11:25 AM SURGICAL GARMENT ASSEMBLER Specimen obtained by aspiration (specimen) (Level 7 Lymph Node) 09/29/2024 10:51 AM SURGICAL GARMENT ASSEMBLER 09/29/2024 11:25 AM SURGICAL GARMENT ASSEMBLER Specimen obtained by aspiration (specimen) (Station 11R Interlobar Lymph Node) 09/29/2024 10:54 AM SURGICAL GARMENT ASSEMBLER 09/29/2024 11:25 AM SURGICAL GARMENT ASSEMBLER Reji Correa MD PATHOLOGY/CYTOLOGY Suma l Result [facility] [address] [place] [address], [place] * (ABNORMAL) Protime - INR (09/29/2024 8:17 AM SURGICAL GARMENT ASSEMBLER) Only the most recent of2 resultswithin the time period is included. INR 1.1 <1.3 09/29/2024 9:35 AM SURGICAL GARMENT ASSEMBLER [facility] PROTIME 13.1(H) 10.6 - 12.4 sec 09/29/2024 9:35 AM SURGICAL GARMENT ASSEMBLER [facility] Blood BLOOD SPECIMEN / Unknown Butterfly / Unknown 09/29/2024 8:17 AM SURGICAL GARMENT ASSEMBLER 09/29/2024 8:48 AM SURGICAL GARMENT ASSEMBLER Narrative [facility] - 09/29/2024 9:35 AM SURGICAL GARMENT ASSEMBLER Therapeutic Range 2.0-3.0 for most anticoagulated patients 2.5-3.5 or 4.0 for high risk patients The INR is only used for patients on stable oral anticoagulant therapy. It makes no significant contribution to the diagnosis or treatment of patients whose Protime is prolonged for other reasons. INR results are increased when heparin levels exceed 1.0 U/mL, which corresponds to an aPTT >125 seconds if the patient is on UFH. us Paz [facility] Final Re sult [facility] [address] [place] [address], [place] * CT CHEST WO (09/29/2024 7:30 AM SURGICAL GARMENT ASSEMBLER) Anatomical Region Laterality Modality CHEST, THORAX, HEART Computed To mography 09/29/2024 8:54 AM SURGICAL GARMENT ASSEMBLER Impressions 09/29/2024 8:54 AM SURGICAL GARMENT ASSEMBLER Development of FDG avid nodule in the left lower lobe, FDG avid thoracic lymph nodes, FDG avid osseous lesion in the right posterior iliac bone suspicious for metastases and progression of disease. (Sic) COMPARISON: PET-CT dated 08/28/2024. Chest CT dated 07/25/2023. TECHNIQUE: CT of the chest without intravenous contrast. Please note that all CT scans at this facility use dose modulation, iterative reconstruction, and/or weight-based dosing when appropriate to reduce radiation dose to as low as reasonably achievable. FINDINGS: THORAX Visualized Lower Neck: No lower cervical adenopathy. Lungs: 11 x 13 mm (series 4; image 38) FDG avid left lower lobe nodule, new compared to 07/25/2023. Coalescent superior segment left lower lobe and left hilar irregular consolidation with architectural distortion is consistent with radiation induced lung disease. Left lower lobe interlobular septal thickening is consistent with interstitial edema. Lymphangitic carcinomatosis is included in the differential diagnosis. Chronic unchanged medial segment right middle lobe and posterior basal segment right lower lobe architectural distortion, traction bronchiectasis and pleural-based band opacities consistent with nonspecific fibrosis. Upper lobe predominant severe emphysema. Increased lung volumes consistent with chronic obstructive airways disease. Pleura: No pleural effusion. No pneumothorax. Mediastinum: FDG avid left interlobar (11L), left lower lobar (12L), subcarinal (7) and contralateral right hilar (10R) and right inferior interlobar (11Ri) lymphadenopathy on the prior PET-CT scan of 08/28/2024 is not well demonstrated on this noncontrast chest CT. Thoracic aorta and pulmonary trunk are normal in caliber. Diffuse thoracoabdominal atherosclerotic mural calcification. Moderate atherosclerotic coronary artery calcifications. Small pericardial effusion. Trachea and esophagus are normal in appearance. ABDOMEN Visualized Upper Abdomen: Postsurgical changes at the gastroesophageal junction. Cholecystectomy. Posterior left lower pole renal cortical round circumscribed homogeneous intermediate density finding measuring 31 HU previously shown to represent a cyst on the 07/25/2023 study with an attenuation of 25 HU. No abnormal uptake associated with this finding on the interval PET-CT scan. Extensive diverticulosis of the splenic flexure of the colon without associated acute inflammatory changes. Large D2 segment periampullary duodenum diverticulum. SKELETON AND BODY WALL In-situ right Port-A-Cath. Incidental note is made of dextroconvex curvature of the thoracic spine. IMPRESSION: 1. FDG avid 11 x 13 mm (series 4; image 38) left lower lobe nodule, new compared to 07/25/2023, suspicious for a metachronous lung cancer or pulmonary metastasis until proven otherwise. 2. FDG avid left interlobar (11L), left lower lobar (12L), subcarinal (7), contralateral right hilar (10R) and right inferior interlobar (11Ri) lymphadenopathy on the prior PET-CT scan of 08/28/2024 is not well demonstrated on this noncontrast chest CT. 3. Coalescent superior segment left lower lobe and left hilar irregular consolidation with architectural distortion consistent with radiation induced lung disease. Left lower lobe interlobular septal thickening is consistent with interstitial edema. Lymphangitic carcinomatosis is included in the differential diagnosis. 4. Incidental findings as above. Please note that all CT scans at this facility use dose modulation, iterative reconstruction, and/or weight-based dosing when appropriate to reduce radiation dose to as low as reasonably achievable. Dictated by Artur Hanks,MD @ 09/29/2024 8:54:45 AM (Electronically Signed) Narrative 09/29/2024 8:54 AM SURGICAL GARMENT ASSEMBLER For Patients: As a result of the Cures Act, medical imaging exams and procedure reports are released immediately into your electronic medical record. You may view this report before your referring provider. If you have questions, please contact your health care provider. 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 From the oncology clinic visit note in [facility] dated 09/03/2024: ... PET/CT from August 28, 2024, showing FDG avidity in the chest, mediastinum and right pelvis, concerning for recurrence and metastases, biopsy pending ... From the report of the recent prior PET-CT dated 08/28/2024: Procedure Note Artur Leonard MD - 09/29/2024 For Patients: As a result of the Cures Act, medical imagingexams and procedure reports are released immediately into your electronicmedical record. You may view this report before your referring provider.If you have questions, please contact your health care provider. 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 From the oncology clinic visit note in [facility] dated 09/03/2024: ... PET/CT from August 28, 2024, showing FDG avidity in the chest,mediastinum and right pelvis, concerning for recurrence and metastases,biopsy pending ... From the report of the recent prior PET-CT dated 08/28/2024: IMPRESSION: Development of FDG avid nodule in the left lower lobe, FDG avid thoraciclymph nodes, FDG avid osseous lesion in the right posterior iliac bonesuspicious for metastases and progression of disease. (Sic) COMPARISON: PET-CT dated 08/28/2024. Chest CT dated 07/25/2023. TECHNIQUE: CT of the chest without intravenous contrast. Please note that all CTscans at this facility use dose modulation, iterative reconstruction,and/or weight-based dosing when appropriate to reduce radiation dose to aslow as reasonably achievable. FINDINGS: THORAX Visualized Lower Neck: No lower cervical adenopathy. Lungs: 11 x 13 mm (series 4; image 38) FDG avid left lower lobe nodule, newcompared to 07/25/2023. Coalescent superior segment left lower lobe and left hilar irregularconsolidation with architectural distortion is consistent with radiationinduced lung disease. Left lower lobe interlobular septal thickening isconsistent with interstitial edema. Lymphangitic carcinomatosis isincluded in the differential diagnosis. Chronic unchanged medial segment right middle lobe and posterior basalsegment right lower lobe architectural distortion, traction bronchiectasisand pleural-based band opacities consistent with nonspecific fibrosis. Upper lobe predominant severe emphysema. Increased lung volumes consistentwith chronic obstructive airways disease. Pleura: No pleural effusion. No pneumothorax. Mediastinum: FDG avid left interlobar (11L), left lower lobar (12L), subcarinal (7) andcontralateral right hilar (10R) and right inferior interlobar (11Ri)lymphadenopathy on the prior PET-CT scan of 08/28/2024 is not welldemonstrated on this noncontrast chest CT. Thoracic aorta and pulmonary trunk are normal in caliber. Diffusethoracoabdominal atherosclerotic mural calcification. Moderateatherosclerotic coronary artery calcifications. Small pericardialeffusion. Trachea and esophagus are normal in appearance. ABDOMEN Visualized Upper Abdomen: Postsurgical changes at the gastroesophagealjunction. Cholecystectomy. Posterior left lower pole renal cortical roundcircumscribed homogeneous intermediate density finding measuring 31 HUpreviously shown to represent a cyst on the 07/25/2023 study with anattenuation of 25 HU. No abnormal uptake associated with this finding onthe interval PET-CT scan. Extensive diverticulosis of the splenic flexureof the colon without associated acute inflammatory changes. Large [id number] periampullary duodenum diverticulum. SKELETON AND BODY WALL In-situ right Port-A-Cath. Incidental note is made of dextroconvex curvature of the thoracic spine. IMPRESSION: 1. FDG avid 11 x 13 mm (series 4; image 38) left lower lobe nodule, newcompared to 07/25/2023, suspicious for a metachronous lung cancer orpulmonary metastasis until proven otherwise. 2. FDG avid left interlobar (11L), left lower lobar (12L), subcarinal (7),contralateral right hilar (10R) and right inferior interlobar (11Ri)lymphadenopathy on the prior PET-CT scan of 08/28/2024 is not welldemonstrated on this noncontrast chest CT. 3. Coalescent superior segment left lower lobe and left hilar irregularconsolidation with architectural distortion consistent with radiationinduced lung disease. Left lower lobe interlobular septal thickening isconsistent with interstitial edema. Lymphangitic carcinomatosis isincluded in the differential diagnosis. 4. Incidental findings as above. Please note that all CT scans at this facility use dose modulation,iterative reconstruction, and/or weight-based dosing when appropriate toreduce radiation dose to as low as reasonably achievable. Dictated by Artur Leonard MD @ 09/29/2024 8:54:45 AM (Electronically Signed) Reji Correa MD CT Final R esult * SCAN-CARDIAC STRIP (09/29/2024 12:00 AM SURGICAL GARMENT ASSEMBLER) Narrative 09/29/2024 12:00 AM SURGICAL GARMENT ASSEMBLER Ordered by an unspecified provider. us Other Clinical Staff OTHER Final Resul t * CT BIOPSY BONE DEEP (09/16/2024 9:27 AM SURGICAL GARMENT ASSEMBLER) Anatomical Region Laterality Modality Computed Tomogra phy, Other, Other, Other Narrative 09/16/2024 3:30 PM SURGICAL GARMENT ASSEMBLER RADIOLOGY POST PROCEDURE NOTE 09/16/2024 Racheal Regalado [id number] INFORMEDCONSENT: In my discussion, prior to the signing of the consent, I reviewed the procedure, benefits, risks, long-term effects, treatment options, possible use of pain or sedation medications, and how the procedure will meet the treatment goal with the patient and/or family. The patient was given ample time to ask questions. All questions were answered. MODERATESEDATION: Under physician supervision, midazolam and fentanyl were administered intravenously for moderate sedation. Pulse oximetry, heart rate, and blood pressure were continuously monitored by a trained, dedicated nurse. INDICATIONS: Right iliac bone lesion. PROCEDURE PERFORMED: CT-guided biopsy of a right iliac bone lesion. PROCEDURE NARRATIVE: Using CT guidance the right iliac bone lesion was localized. The overlying skin was prepped and draped in the usual sterile fashion. 1% lidocaine was used for local anesthesia. An 11-gauge bone biopsy needle was used to obtain a single core of the lesion. The needle was removed. POST-PROCEDURE DIAGNOSIS: Status post CT-guided biopsy of the right iliac bone lesion. PATIENT POSITION: LPO ANTISEPTIC PREPARATION and BARRIER TECHNIQUES USED: Skin was prepped and draped in the usual sterile fashion. IMAGING GUIDANCE FOR ACCESS / PROCEDURE: CT Permanently recorded images are archived in PACS. ACCESS LOCATION / SITE / TECHNIQUE: Right posterior pelvis. EQUIPMENT UTILIZED: 11-gauge bone biopsy needle. CLOSURE: none RADIATION DOSE: total exam DLP: 312 mGy-cm MEDICATIONS GIVEN: versed 4 mg IV. 1% Lidocaine was used for local anesthesia. SPECIMEN(S): 11-gauge core biopsy x 1. COMPLICATIONS: no complications noted DRAINS: None ESTIMATED BLOOD LOSS: Less than 10 cc. PHYSICIAN(S) AND ASSISTANTS (if any): Richard Snider MD Additional Comments: Please call with questions. Richard Snider MD [place] Protocol A. Pre-procedure verification complete yes 1-relevant information / documentation available, reviewed and properly matched to the patient; 2-consent accurate and complete, 3-equipment and supplies available B. Site marking complete Yes Site marked if not in continuous attendance with patient C. TIME OUT completed yes Time Out was conducted just prior to starting procedure to verify the eight required elements: 1-patient identity, 2-consent accurate and complete, 3-position, 4-correct side/site marked (if applicable), 5-procedure, 6-relevant images / results properly labeled and displayed (if applicable), 7-antibiotics / irrigation fluids (if applicable), 8-safety precautions. Please note that all CT scans at this facility use dose modulation, iterative reconstruction, and/or weight-based dosing when appropriate to reduce radiation dose to as low as reasonably achievable. Zahira Cortez MBBS CT Final Re sult * FNA Cytology OUTSIDE SALESPERSON (09/16/2024 9:13 AM SURGICAL GARMENT ASSEMBLER) Case Report Medical Cytology Report Case: [id number] Authorizing Provider: Richard Snider MD Collected: 09/16/202413 Ordering Location: [facility] Received: 09/16/2024 0923 [facility] Pathologist: Shivani Rodriguez DO Specimen: Bone, right iliac bone 09/17/2024 5:08 PM SURGICAL GARMENT ASSEMBLER [facility] Final Diagnosis A) BONE, RIGHT ILIAC LESION, NEEDLE CORE BIOPSY WITH TOUCH IMPRINTS: 1. Positive for malignancy; metastatic small cell carcinoma 2. See comment 09/17/2024 5:08 PM SURGICAL GARMENT ASSEMBLER [facility] Comment The current tumor cells are morphologically DIFFERENT from the patient's prior left lower lobe lung adenocarcinoma ([id number] was reviewed for morphologic comparison). The cytologic appearance and immunohistochemical findings of the current tumor are consistent with metastatic small cell carcinoma. Potential diagnostic considerations include metastasis from combined small cell carcinoma (in which the prior specimen only sampled the adenocarcinoma component) versus a new primary small cell carcinoma. Clinical and radiologic correlation is necessary to distinguish between these possibilities. Case seen in consultation with Dr. Boucher. LUNG ANCILLARY TESTING PROTOCOL This patient's sample does NOT meet [facility] Thoracic Oncology Program Committee criteria* for reflex testing. If there is a need for ancillary tests, please contact the [facility] ([phone]). Slides available for [facility] NGS testing: Cytology slide A1-1 Blocks available for [facility] NGS testing: Insufficient material Blocks available for tests using immunostains and/or FISH (requiring 100 cells): Block A4 Blocks available for send out (outside vendor) testing requiring 5 x 5 mm of tumor: QUANTITY NOT SUFFICIENT *[facility] Program Committee reflex testing criteria: Stage IV pulmonary non-small cell carcinoma OR Tumor size >= 4 cm, or lymph node involvement, pulmonary non-small cell carcinoma, neoadjuvant setting OR Resected stage IB - IIIB pulmonary non-small cell carcinoma, adjuvant setting (if not previously performed) - [facility] Lung NGS panel (EGFR, ALK, ROS1, RET, MET, KRAS, BRAF, HRAS, NRAS, ERBB2, NTRK1/2/3) - [facility] PD-L1 SP263 - If RNA NGS fusion analysis fails, FISH for ALK and ROS1 fusion will be attempted 09/17/2024 5:08 PM [facility] Clinical Information The patient is a 74-year-old with a 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 The patient was treated with chemoradiation and maintenance immunotherapy. Follow-up PET/CT scan showed development an FDG-avid nodule in the left lower lobe, thoracic lymphadenopathy, and an osseous lesion in the right posterior iliac bone. 09/17/2024 5:08 PM [facility] Gross Description A) Received identified as Right Iliac bone is a radiologic guided biopsy specimen. The core biopsy sampling measures 0.4 cm x 0.8 cm in aggregate. The specimen consists of: -1 Air dried slide -2 Formalin vials -0 RPMI vials The following were prepared from the specimen submitted: -1 Diff-Quik stained slide -3 H&E stained cell block slides The biopsy material is entirely submitted in 3 cassettes. A2 Cell block material was removed from the patient and placed directly in formalin at 0913 on 09/16/24 and fixed in formalin at least 6 hours and no more than 72 hours. Stat decalcification was performed for histopathology processing. A3 Cell block material was removed from the patient and placed directly in formalin at 0913 on 09/16/24 and fixed in formalin at least 6 hours and no more than 72 hours. A4 Cell block material was removed from the patient and placed directly in formalin at 0913 on 09/16/24 and fixed in formalin at least 6 hours and no more than 72 hours. 09/17/2024 5:08 PM [facility] Adequacy Assessment A) N.M. assessed adequacy from the air-dried smears at the time of the procedure with an impression of Adequate. 09/17/2024 5:08 PM [facility] Microscopic Description Specimen adequacy: Adequate for interpretation. All slides were reviewed. The microscopic appearance substantiates the diagnosis. Immunohistochemical stains are performed on block A2, and the results the tumor cells are summarized below: Cytokeratin cocktail: Positive (diffuse) TTF-1: Positive (weak, diffuse) Synaptophysin: Positive (weak, patchy) CD3: Negative CD20: Negative 09/17/2024 5:08 PM SURGICAL GARMENT ASSEMBLER [facility] Additional Information Cytology is screened at [facility] - [address], [place] [address] and [facility] - [address], [place] [address] and [facility] - [address] [place] [address] Interpreted at [facility] - [address], [place] [address] Immunohistochemistr y controls were reviewed and approved by the pathologist during this examination. 09/17/2024 5:08 PM SURGICAL GARMENT ASSEMBLER [facility] Aspirate SPECIMEN FROM BONE / Unknown 09/16/2024 9:13 AM SURGICAL GARMENT ASSEMBLER 09/16/2024 9:23 AM SURGICAL GARMENT ASSEMBLER Richard Snider MD PATHOLOGY/CYTOLOGY Final Re sult Performing Organization Address City/[facility]/ZIP Co de Phone Number [facility] [address] [place] [address], [place] * Platelet Count (09/16/2024 7:17 AM SURGICAL GARMENT ASSEMBLER) PLATELET COUNT 202 140 - 440 thou/cu mm 09/16/2024 7:30 AM SURGICAL GARMENT ASSEMBLER [facility] MPV 10.0 6.5 - 11.0 fL 09/16/2024 7:30 AM SURGICAL GARMENT ASSEMBLER [facility] Blood BLOOD SPECIMEN / Unknown Butterfly / Unknown 09/16/2024 7:17 AM SURGICAL GARMENT ASSEMBLER 09/16/2024 7:25 AM SURGICAL GARMENT ASSEMBLER Richard Snider MD HEMATOLOGY Final Resul t [facility] [address] [place] [address], [place] * Hemoglobin (09/16/2024 7:17 AM SURGICAL GARMENT ASSEMBLER) HEMOGLOBIN 14.1 12.0 - 16.0 g/dL 09/16/2024 7:30 AM SURGICAL GARMENT ASSEMBLER [facility] MCV 88 80 - 100 fL 09/16/2024 7:30 AM SURGICAL GARMENT ASSEMBLER [facility] Blood BLOOD SPECIMEN / Unknown Butterfly / Unknown 09/16/2024 7:17 AM SURGICAL GARMENT ASSEMBLER 09/16/2024 7:25 AM SURGICAL GARMENT ASSEMBLER us Richard Snider MD HEMATOLOGY Final Resul t [facility] [address] [place] [address], * SCAN-CT INTERPRETATION (08/17/2024 12:00 AM SURGICAL GARMENT ASSEMBLER) Anatomical Region Laterality Modality Other us Scanner OTHER Final Result * LIPID PANEL W REFLEX MEASURED LDL (03/02/2024 10:13 AM CDT) CHOLESTEROL,TOTAL 128 100 - 199 mg/dL 03/02/2024 3:15 PM CDT [facility] Comment: Cholesterol, Total Reference Ranges Desirable <200 mg/dL Borderline 200-239 mg/dL High >=240 mg/dL TRIGLYCERIDES 94 <150 mg/dL 03/02/2024 3:15 PM CDT [facility] HDL CHOLESTEROL 61 >40 mg/dL 3:15 PM CDT [facility] NON-HDL CHOLESTEROL 67 <145 mg/dl 03/02/2024 3:15 PM CDT [facility] CHOL/HDL RATIO 2.10 <4.50 03/02/2024 3:15 PM CDT [facility] LDL CHOLESTEROL 48 <=130 mg/dL 03/02/2024 3:15 PM CDT [facility] VLDL CHOLESTEROL 19 <=30 mg/dL 03/02/2024 3:15 PM CDT [facility] PROVIDER ORDERED STATUS RANDOM 03/02/2024 3:15 PM CDT [facility] Blood BLOOD SPECIMEN / Unknown Butterfly / Unknown 03/02/2024 10:13 AM CDT 03/02/2024 10:13 AM CDT us Willam Jaramillo MD CHEMISTRY Final R esult [facility] [address] [place] [address], [place] * SCAN-COLONOSCOPY (12/12/2020 12:00 AM SURGICAL GARMENT ASSEMBLER) us Scanner OTHER Final Result * ANTI HCV (07/20/2020 11:00 AM CDT) HEPATITIS C ANTIBODY Non-React swati Non-React swati 07/20/2020 8:05 PM CDT [facility] Comment:Antibodies to HCV no t detected; does not exclude the possibility of exposure to HCV. Blood BLOOD SPECIMEN / Unknown Butterfly / Unknown 07/20/2020 11:00 AM CDT 07/20/2020 11:46 AM CDT us Rosy Croft DO SEND OUTS Final Resu lt [facility] [address] [place] [address], from Last 3 Months or Most Recently Relevant to Health Maintenance Insurance MEDICARE PB ONLY MEDICARE PART B HB ONLY MEDICARE PART A HB ONLY [employer] MEDICARE SUPPLEMENT SOLUTIONS TPL UNDETERMINED Advance Directives * Full Code (Latest Code Status on File) Date Activated Date Inactivated Comments 09/29/2024 8:03 AM 09/29/2024 4:19 PM Question Answer Comments Code Status Discussion: Unable to Assess Preferences, Provider to review later * Full Code Date Activated Date Inactivated Comments 04/12/2023 7:10 [...] Comments 09/30/2015 7:36 AM 09/30/2015 9:14 AM Care Teams Vector Control Specialist Relationship Specialty [place] [id number] [place] [address] PCP - General Family Practice 02/18/23 [place] [address] [place] [address] [place] [phone] Surgery - Colon and Rectal 03/18/20 Mary Kinney, RN, BSN [address] [place] [address] [phone] Nurse Navigator - Oncology Registered Nurse 04/12/23 Tobin Ardon MD [address] [place] [address] Surgery - Cardiothoracic 04/02/23
--- OUTSIDE RECORDS SUMMARY | 2024-10-16 10:25 | XMS_ITS | Clinical Summary ---
Author Organization [facility] Address [address] [place] [address] Care Team Providers Care Stack Clerk Name Role Phone Shar Bartlett [address] RD Unavailable [phone] Willam Jaramillo MD Primary Care Provider [...] Take 1 capsule (125 mg) by mouth daily. For additional refills, please schedule a follow-up appointment. 90 capsule 08/22/20 24 025 Active Active Problems Problem Noted Date Diagnosed [...] (12/13/2020): Added automatically from request for surgery [id number] Diverticulitis of large intestine with abscess 0 04/21/2020 Diverticulitis of small intestine with abscess 0 04/19/2020 Acute diverticulitis 03/31/2020 Diverticulitis 03/28/2020 Encounters Date Type Department Care Team Description 08/24/2024 Telephone [facility] [address] [address] Hakan Barton MD Call Back; Medication Question 08/17/2024 Refill [facility] [address] [phone] Hakan Barton MD Refill Request (vancomycin (VANCOCIN) 125 MG capsule ) 08/03/2024 Telephone [facility] [place] [address] [facility] [address] [place] [phone] Hakan Barton MD from Last 3 Months Immunizations Name Administration [...] on file 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 Gender Identity Not on file Sexual Orientation Not on file Last Filed Vital Signs Vital Sign Reading Time Taken Comments Blood Pressure 167/97 05/02/2023 4:45 PM CDT Pulse 78 05/02/2023 4:45 PM CDT Temperature 36.6 C (97.8 F) 05/02/2023 2:58 PM CDT Respiratory Rate 16 05/02/2023 4:45 PM CDT [...] 2024 08/28/2023, 08/01/2022, 02/01/2022, Additional history exists MEDICARE ANNUAL WELLNESS VISIT 03/02/2025 03/02/2024, 02/28/2023, 07/26/2021, Additional history exists COLONOSCOPY 12/13/2025 07/03/2021, 06/15, 12/12/2020, Additional history exists COLORECTAL CANCER SCREENING 12/13/2025 ADVANCE CARE PLANNING 01/05/2026 01/05/2021 GLUCOSE 05/02/2026 05/02/2023, 01/13, 02/07/2023, Additional history exists DTAP/TDAP/TD IMMUNIZATION (2 - Td or Tdap) 06/19/2026 06/19/2016 Pneumococcal Vaccine: 50+ Years Completed 06/28/2020, 08/27/2019 INFLUENZA VACCINE Completed 07/31/2024, , 08/01/2022, Additional history exists HPV IMMUNIZATION Aged Out No longer e ligible based on patient's age to complete this topic MENINGITIS IMMUNIZATION Aged Out No l onger eligible based on patient's age to complete this topic RSV MONOCLONAL ANTIBODY Aged Out No l onger eligible based on patient's age to complete this topic Medical Devices Implanted Type Area Aviation Manager Device Identifier Shelf Expiration Date Model / Serial / Lot Whistle Tip 5fr X 70cm, Right Implanted:Qty: 1 on 12/13/2020 by Jerrod Jose MD at [facility] Right: Ureter BARD 01/11/2022 [id number] / / [id number] Whistle Tip 5 Fr X 70cm, Left Implanted:Qty: 1 on 12/13/2020 by Jerrod Jose MD at [facility] Left: Ureter BARD 01/11/2022 [id number] / / [id number] Explanted Type Area Aviation Manager Device Identifier Shelf Expiration Date Model / Serial / Lot Bard Whistle Tip 5fr. X 70 Cm Implanted:Qty: 1 Explanted:Qty: 1 on 04/21/2020 at [facility] Right: Ureter BARD 08/10/2020 [id number] / / [id number] Bard Whistle Tip 5 Fr. X 70 Cm Implanted:Qty: 1 Explanted:Qty: 1 on 04/21/2020 at [facility] Left: Ureter BARD 01/11/2022 [id number] / / [id number] Procedures Procedure Name Priority Date/Time Associated Diagnosis [...] - BLOOD ORDERABLES Fin al Result LABORATORY [facility] Acute Care Lab [address] 1st floor, Room 20B [place] [address], [facility] [phone] * COLONOSCOPY (07/03/2021 1:54 PM CDT) [address] [address] [phone] Endoscopy Department ___ Patient Name: Racheal Regalado Procedure Date: 07/03/2021 1:54 PM Date of : 1950 Admit Type: Outpatient Age: 71 Room: [facility] Gender: Female Note Status: Addendum Attending MD: Hakan Barton MD Total Sedation Time: ___ Procedure: Colonoscopy Indications: Chronic diarrhea Providers: Hakan Barton MD, Sally Tang Patient Profile: This is a 71 year old female s/p partial colon resection for diverticulitis that was complicated by recurrent C. difficile infection. So far she had failed 2 oral capsule IMT treatments, the second one was done along with Zinplava. This is her third IMT. It was noted that the patient had to be admitted after her last two colonoscopies due to paradoxic reactions to sedative medications. Referring MD: Tamiko Ruiz MD Medicines: Midazolam 5 mg IV, Fentanyl 25 micrograms IV, Diphenhydramine 50 mg IV Complications: No immediate complications. ___ Procedure: Pre-Anesthesia Assessment: - Airway Examination: normal oropharyngeal airway and neck mobility. - Respiratory Examination: clear to auscultation. - CV Examination: regular rate and rhythm. - Mental Status Examination: alert and oriented. - ASA Grade Assessment: III - A patient with severe systemic disease. - After reviewing the risks and benefits, the patient was deemed in satisfactory condition to undergo the procedure. - The anesthesia plan was to use moderate sedation/analgesia (conscious sedation). - Immediately prior to administration of medications, the patient was re-assessed for adequacy to receive sedatives. - Sedation was administered by an endoscopy nurse. The sedation level attained was moderate. - The heart rate, respiratory rate, oxygen saturations, blood pressure, adequacy of pulmonary ventilation, and response to care were monitored throughout the procedure. - The physical status of the patient was re-assessed after the procedure. After obtaining informed consent, the colonoscope was passed under direct vision. Throughout the procedure, the patient's blood pressure, pulse, and oxygen saturations were monitored continuously. The Colonoscope was introduced through the anus and advanced to the cecum, identified by appendiceal orifice and ileocecal valve. The colonoscopy was performed without difficulty. The patient tolerated the procedure well. The quality of the bowel preparation was good. Findings: Multiple small and large-mouthed diverticula were found in the sigmoid colon. There was evidence of a prior end-to-end colo-colonic anastomosis in the sigmoid colon. This was patent and was characterized by healthy appearing mucosa. A tattoo was seen in the descending colon. Intestinal microbiota was infuesed into the cecum (unit 102.07.06.21.8x10^ 11). Normal mucosa was found in the entire colon. Biopsies for histology were taken with a cold forceps from the transverse colon for evaluation of microscopic colitis. Moderate Sedation: Moderate (conscious) sedation was administered by the endoscopy nurse and supervised by the endoscopist. The patient's oxygen saturation, heart rate, blood pressure and response to care were monitored. Total physician intraservice time was 21 minutes. Impression: - Diverticulosis in the sigmoid colon. - Patent end-to-end colo-colonic anastomosis, characterized by healthy appearing mucosa. - A tattoo was seen in the descending colon. - Biopsies were done in the transverse colon to rule out microscopic colitis. - IMT was done. Recommendation: - Return to my office in 2 months. - Any antibiotic prescription should be cleared with Dr. Barton Signed Electronically by Hakan Barton MD __ Hakan Barton MD 07/03/2021 4:07:20 PM I was physically present for the entire viewing portion of the exam. Signature of teaching physician Jaden/Soledad Barton MD Number of Addenda: 1 Note Initiated On: 07/03/2021 1:54 PM Scope In: Scope Out: ___ Addendum Number: 1 Addendum Date: 07/03/2021 4:12:56 PM Conscious sedation was administered under direct supervision and monitoring by Dr. Barton for 21 minutes. [...] NEG^Negati ve 04/07/2021 1:[address] [facility] Stool 04/07/2021 1:34 PM CDT 04/07/2021 1:50 PM CDT us Hina Leggett DO LAB - STOOLS ORDERABLES Ed ited Result - Final [facility] [address] [place] [address], [facility] [phone] from Last 3 Months or Most Recently Relevant to Health Maintenance Insurance MEDICARE CT BASIC MEDICARE SUPPLEMENT PLAN Advance Directives For more information, please contact: [phone] * Full Code (Latest Code Status on [...] patie nt/ legal decision maker Care Teams Stack Clerk Relationship Specialty [place] [address] [place], [place] [phone] PCP - General 07/28/22 Shar Bartlett, TAYLA [address] [place] [address] Registered Dietitian Dietitian, Registered 07/20/21
--- OUTSIDE RECORDS SUMMARY | 2024-10-16 10:26 | XMS_ITS | Encounter Summary ---
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 Gender Identity Not on file Sexual [...] Out C-difficile 09/27/2021 09/27/2021 021 2:32 PM HOUSEHOLD ASSISTANT Rule Out C-difficile 01/14/2022 01/14/2022 022 6:15 PM CDT documented as of this encounter Care Teams Supervisor Air Conditioning Installer Relationship Specialty Start Date End Date [facility] [id number] [place] [phone] PCP - General 07/05/16 07/02/21 Venus Barnes MD [facility] [id number] [place] [address] PCP - General 07/03/21 07/27/22 Willam Jaramillo [place] [address] [place] [address] PCP - General 07/28/22 [place] [address] [place] [address] Assigned Gastroenterology Provider 05/07/21 08/30/[address] [place] [address] Registered Dietitian Dietitian, Registered 07/20/21 Jon Eng MD [address] [place] [address] [id number] [address] Assigned Surgical Provider 04/14/22 documented as of this encounter
--- OUTSIDE RECORDS SUMMARY | 2024-10-16 10:26 | XMS_ITS | Encounter Summary ---
Author Organization [facility] Address [address] [place] [address]. [place] [address] Care Team Providers Care Vegetable Cook Name Role Phone [facility], [facility] Primary Care Provider + Hakan Barton MD Unavailable Venus Barnes MD Primary Care Provider [phone] Unavailable [phone] Jon Eng MD Unavailable [phone] Willam Jaramillo MD Primary Care Provider Encounter Details Date Type Department Care Team (Late st Contact Info) Description 01/10/2021 [facility] Only [facility] Laboratory [address] [place] [phone] Tamiko Ruiz MD COLON RECTAL SURGERY [address] [address] Abdominal pain (Primary Dx) Social History Tobacco Use Types Packs/Day Years Used Date Smoking Tobacco: Former Cigarettes Comments:quit 2013 Alcohol Use Standard Drinks/Week Comments Yes 0 (1 standard drink = 0.6 oz pur e alcohol) occas Comments No Sex and Gender Information Value Date Recorded Sex Assigned at Not on file 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 Gender Identity Not on file Sexual Orientation [...] Out C-difficile 09/27/2021 09/27/2021 021 2:32 PM BOAT OUTBOARD ENGINE MECHANIC Rule Out C-difficile 01/14/2022 01/14/2022 022 6:15 PM CDT documented as of this encounter Care Teams Vegetable Cook Relationship Specialty Start Date End Date [facility] [address] [place] [phone] PCP - General 07/05/16 07/02/21 Venus Barnes MD [facility] [id number] [place] [address] PCP - General 07/03/21 07/27/22 Willam Jaramillo MD [address] [place] [address] PCP - General 07/28/22 [place] [address] [place] [address] Assigned Gastroenterology Provider 05/07/21 08/30/[address] [place] [address] Registered Dietitian Dietitian, Registered 07/20/21 Jon Eng MD [address] [facility] [id number] [address] Assigned Surgical Provider 04/14/22 documented as of this encounter
--- OUTSIDE RECORDS SUMMARY | 2024-10-16 10:26 | XMS_ITS | Encounter Summary ---
Author Organization [facility] Address [address] [place] [address] Care Team Providers Care Psych Tech Name Role Phone Hakan Barton MD Unavailable Venus Barnes MD Primary Care Provider Shar Bartlett RD Unavailable [phone] Jon Eng MD Unavailable [phone] Willam Jaramillo MD Primary Care Provider Encounter Details Date Type Department Care Team (Late st Contact Info) Description 01/14/2022 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 difficile Assay, performed on the [employer], is a qualitative in vitro [...] ORDERAB LES Final Result [facility] Inf. Diseases Diag. Lab [address] [facility], [address] [place] [address], [facility] [phone] * Enteric Bacteria and Virus Panel by JAQUI Stool (01/14/2022 11:30 AM CDT) Pathologist [facility] Campylobacter group Not Detected Not Detected 01/14/2022 [...] performed by multiplexed, qualitative PCR using the katena Enteric Pathogens Nucleic Acid Test. Results should [...] encode for Shiga toxins 1 and 2. us Hakan Barton MD LAB - MICRO GENERAL ORDERAB LES Final Result [facility] Inf. Diseases Diag. Lab [address] [facility], [address] [place] [address], [facility] [phone] documented in this encounter Visit Diagnoses Diagnosis Diarrhea, unspecified type documented in this encounter Additional Health Concerns Infection Onset Date Last Indicated Resolved Time Rule Out C-difficile 01/14/2022 01/14/2022 022 6:15 PM CDT documented as of this encounter Care Teams Psych Tech Relationship Specialty Start Date End Date Venus Barnes MD [facility] [address] [place] [address] PCP - General 07/03/21 07/27/22 [place] [address] [place] [address] PCP - General 07/28/22 [place] [address] [address] [place] [address] Assigned Gastroenterology Provider 05/07/21 08/30/23 Shar Bartlett, TAYLA [address] [place] [address] Registered Dietitian Dietitian, Registered 07/20/21 Jon Eng MD [address] [facility] [id number] [place] [address] Assigned Surgical Provider 04/14/22 documented as of this encounter
--- OUTSIDE RECORDS SUMMARY | 2024-10-16 10:26 | XMS_ITS | Encounter Summary ---
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 Gender Identity Not on file Sexual Orientation [...] Out C-difficile 09/27/2021 09/27/2021 021 2:32 PM BICYCLE REPAIRER Rule Out C-difficile 01/14/2022 01/14/2022 022 6:15 PM CDT documented as of this encounter Care Teams Tree Scout Relationship Specialty Start Date End Date [facility] [id number] [place] [phone] PCP - General 07/05/16 07/02/21 Venus Barnes MD [facility] [address] [place] [address] PCP - General 07/03/21 07/27/22 Willam Jaramillo [place] [address] [place] [address] PCP - General 07/28/22 [place] [address] [place] [address] Assigned Gastroenterology Provider 05/07/21 08/30/[address] [place] [address] Registered Dietitian Dietitian, Registered 07/20/21 Jon Eng MD [address] [address] Assigned Surgical Provider 04/14/22 documented as of this encounter
--- OUTSIDE RECORDS SUMMARY | 2024-10-16 10:26 | XMS_ITS | Encounter Summary ---
Author Organization [facility] Address [address] [place] [address] Care Team Providers Care Latin Professor Name Role Phone Hakan Barton MD Unavailable [phone] Venus Barnes MD Primary Care Provider [phone] Unavailable [phone] Jon Eng MD Unavailable [phone] Willam Jaramillo MD Primary Care Provider Encounter Details Date Type Department Care Team (Late st Contact Info) Description 09/27/2021 [facility] [address] [place] [address] SamrithAlexandria Diarrhea, unspecified type Social History Tobacco Use Types Packs/Day Years Used Date Smoking Tobacco: Former Cigarettes Smokeless Tobacco: Never Comments:quit 2013 Alcohol Use Standard Drinks/Week Comments Yes 0 (1 standard drink = 0.6 oz pur e alcohol) occas Comments No Sex and Gender Information Value Date Recorded Sex Assigned at Not on file 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 No / Unsure 09/28/2021 7:30 AM SERVICE ORDER DISPATCHER documented as of this encounter Plan of Treatment Not on file documented as of this encounter Procedures Procedure Name Priority Date/Time Associated Diagnosis Comments ENTERIC BACTERIA AND VIRUS PANEL BY PCR Routine 09/27/2021 5:45 PM SERVICE ORDER DISPATCHER Diarrhea, unspecified type CLOSTRIDIUM DIFFICILE TOXIN B Routine 09/27/2021 5:45 PM SERVICE ORDER DISPATCHER Diarrhea, unspecified type CALPROTECTIN FECES Routine 09/27/2021 5: 45 PM SERVICE ORDER DISPATCHER Diarrhea, unspecified type ROUTINE PARASITOLOGY EXAM Routine 09/27/2021 5:45 PM SERVICE ORDER DISPATCHER Diarrhea, unspecified type documented in this encounter Results * Ova and Parasite Exam Routine (09/27/2021 5:45 PM SERVICE ORDER DISPATCHER) OVA AND PARASITE EXAM Negative Negative JACQUE 09/29/2021 2:20 PM SERVICE ORDER DISPATCHER [facility] Comment:A single negative sp ecimen does not rule out parasitic infection. Stool RECTAL CONTENTS / Unknown Non-blood Collection / Unknown 09/27/2021 5:45 PM SERVICE ORDER DISPATCHER 09/28/2021 7:42 AM SERVICE ORDER DISPATCHER Narrative [facility] - 09/29/2021 2:20 PM SERVICE ORDER DISPATCHER Cryptosporidium, Cyclospora and Microsporidia are not readily detected by this method. us Hakan Barton MD LAB - MICRO GENERAL ORDERAB LES Final Result [facility] Infectious Diseases Diagnostic Lab (IDDL) [address] [place] [address], [address] [place] [address], [facility] [phone] * Enteric Bacteria and Virus Panel by JAQUI Stool (09/27/2021 5:45 PM SERVICE ORDER DISPATCHER) Campylobacter group Not Detected Not Detected 09/28/2021 9:23 PM SERVICE ORDER DISPATCHER [facility] Salmonella species Not Detected Not Detected 09/28/2021 9:23 PM SERVICE ORDER DISPATCHER [facility] Shigella species Not Detected Not Detected 09/28/2021 9:23 PM SERVICE ORDER DISPATCHER [facility] Vibrio group Not Detected Not Detected 09/28/2021 9:23 PM SERVICE ORDER DISPATCHER [facility] Rotavirus Not Detected Not Detected 09/28/2021 9:23 PM SERVICE ORDER DISPATCHER [facility] Shiga toxin 1 gene Not Detected Not Detected 09/28/2021 9:23 PM SERVICE ORDER DISPATCHER [facility] Shiga toxin 2 gene Not Detected Not Detected 09/28/2021 9:23 PM SERVICE ORDER DISPATCHER [facility] Norovirus I and II Not Detected Not Detected 09/28/2021 9:23 PM SERVICE ORDER DISPATCHER [facility] Yersinia enterocolitica Not Detected Not Detected 09/28/2021 9:23 PM SERVICE ORDER DISPATCHER [facility] Stool RECTAL CONTENTS / Unknown Non-blood Collection / Unknown 09/27/2021 5:45 PM SERVICE ORDER DISPATCHER 09/28/2021 7:41 AM SERVICE ORDER DISPATCHER Narrative [facility] - 09/28/2021 9:23 PM SERVICE ORDER DISPATCHER Testing performed by multiplexed, qualitative PCR using the VoyageByMe Enteric Pathogens Nucleic Acid Test. Results should [...] ORDERAB LES Final Result [facility] Infectious Diseases Diagnostic Lab (IDDL) [address] [facility], [address] [place] [address], [facility] [phone] * (ABNORMAL) Calprotectin Feces (09/27/2021 5:45 PM SERVICE ORDER DISPATCHER) Calprotectin Feces 341.0(H) 0.0 - 49.9 mg/kg 09/29/2021 1:35 PM SERVICE ORDER DISPATCHER SPECIALTY CORE/PROT/EN DO Comment: Abnormal, repeat as [...] Non-blood Collection / Unknown 09/27/2021 5:45 PM SERVICE ORDER DISPATCHER 09/28/2021 7:42 AM SERVICE ORDER DISPATCHER us Hakan Barton MD LAB - STOOLS ORDERABLES Fin al Result SPECIALTY CORE/PROT/ENDO [facility] Specialty Core Lab [address] [facility], [address] [place] [address], [facility] [phone] * Clostridium difficile Toxin B PCR (09/27/2021 5:45 PM SERVICE ORDER DISPATCHER) C Difficile Toxin B by PCR Negative Negative 09/28/2021 2:32 PM SERVICE ORDER DISPATCHER [facility] Comment:A negative result do es not exclude actual disease due to C. difficile and may be due to improper collection, handling and storage of the specimen or the number of organisms in the specimen is below the detection limit of the assay. Stool RECTAL CONTENTS / Unknown Non-blood Collection / Unknown 09/27/2021 5:45 PM SERVICE ORDER DISPATCHER 09/28/2021 7:41 AM SERVICE ORDER DISPATCHER Narrative [facility] - 09/28/2021 2:32 PM SERVICE ORDER DISPATCHER The Cepheid Xpert C. difficile Assay, performed on the MyClasses GeneXpert Instrument Systems, is a qualitative in vitro [...] ORDERAB LES Final Result [facility] Infectious Diseases Diagnostic Lab (IDDL) [address] [facility], [address] [place] [id number] [phone] documented in this encounter Visit Diagnoses Diagnosis Diarrhea, unspecified type documented in this encounter Additional Health Concerns Infection Onset Date Last Indicated Resolved Time Rule Out C-difficile 09/27/2021 09/27/2021 021 2:32 PM SERVICE ORDER DISPATCHER Rule Out C-difficile 01/14/2022 01/14/2022 022 6:15 PM CDT documented as of this encounter Care Teams Latin Professor Relationship Specialty Start Date End Date Venus Barnes MD [facility] [[email or web address] [address] [place] [address] PCP - General 07/03/21 07/27/22 [place] [address] [place] [address] PCP - General 07/28/22 [place] [address] [place] [address] Assigned Gastroenterology Provider 05/07/21 08/30/[address] [place] [address] Registered Dietitian Dietitian, Registered 07/20/21 Jon Eng MD [address] [place] [address] [id number] [place], [place] [address] Assigned Surgical Provider 04/14/22 documented as of this encounter
--- OUTSIDE RECORDS SUMMARY | 2024-10-16 10:26 | XMS_ITS | Referral Summary ---
Author Organization [facility] Address [address] [place] [address] Care Team Providers Care Work Over Rig Operator Name Role Phone Shar Bartlett [address] RD Unavailable [phone] Willam Jaramillo MD Primary Care Provider Encounters Date Type Department Care Team Description 08/24/2024 Telephone [facility] [address] [address] Hakan Barton MD Call Back; Medication Question 08/17/2024 Refill [facility] G[facility]enter[facility] [address] [address] Hakan Barton MD Refill Request (vancomycin (VANCOCIN) 125 MG capsule ) 08/03/2024 Telephone [facility] [address] [address] Hakan Barton MD from Last 3 Months Allergies Active Allergy [...] (12/13/2020): Added automatically from request for surgery [id number] Diverticulitis of large intestine with abscess 0 [...] on file Legal Sex Female 3:09 AM LENS GENERATOR Gender Identity Not on file Sexual Orientation [...] on file Medical Devices Implanted Type Area Dry Cure Worker Device Identifier Shelf Expiration Date Model / Serial / Lot Whistle Tip 5fr X 70cm, Right Implanted:Qty: 1 on 12/13/2020 by Jerrod Jose MD at [facility] Right: Ureter BARD 01/11/2022 [id number] / / [id number] Whistle Tip 5 Fr X 70cm, Left Implanted:Qty: 1 on 12/13/2020 by Jerrod Jose MD at [facility] Left: Ureter BARD 01/11/2022 [id number] / / [id number] Explanted Type Area Dry Cure Worker Device Identifier Shelf Expiration Date Model / Serial / Lot Bard Whistle Tip 5fr. X 70 Cm Implanted:Qty: 1 Explanted:Qty: 1 on 04/21/2020 at [facility] Right: Ureter BARD 08/10/2020 [id number] / / [id number] Bard Whistle Tip 5 Fr. X 70 Cm Implanted:Qty: 1 Explanted:Qty: 1 on 04/21/2020 at [facility] Left: Ureter BARD 01/11/2022 [id number] / / [id number] Procedures Procedure Name Priority Date/Time Associated Diagnosis [...] - BLOOD ORDERABLES Fin al Result LABORATORY [facility] Acute Care Lab [address] floor, [address] [place] [address], [facility] [phone] * COLONOSCOPY (07/03/2021 1:54 PM CDT) COLONOSCOPY [address] [address] [phone] Endoscopy Department ___ Patient Name: Racheal Regalado Procedure Date: 07/03/2021 1:54 PM Date of : 1950 Admit Type: Outpatient Age: 71 Room: #2 Gender: Female Note Status: Addendum Attending MD: [...] of the exam. Signature of teaching physician Jenc/Soledad Barton MD RADIOLOGY RESULTS 07/03/2021 1:54 PM CDT us Tamiko Ruzi MD PROCEDURES Edited Res ult - Final RADIOLOGY RESULTS * Stool: occult blood (04/07/2021 1:34 PM CDT) Occult Blood Negative NEG^Negati ve 04/07/2021 1:57 PM CDT [facility] Stool 04/07/2021 1:34 PM CDT 04/07/2021 1:50 PM CDT us Hina Leggett DO LAB - STOOLS ORDERABLES Ed ited Result - Final Performing Organization Address City/[facility]/ZIP Co de Phone Number [facility] [address] [place] [address], [facility] [phone] from Last 3 Months or Most Recently Relevant to Health Maintenance Insurance MEDICARE [place] BASIC MEDICARE SUPPLEMENT PLAN Advance Directives For more information, please contact: [phone] * Full Code (Latest Code Status on [...] patie nt/ legal decision maker Care Teams Work Over Rig Operator Relationship Specialty [place] [address] [place] [address] PCP - General 07/28/22 Shar Bartlett, RD [address] [place] [address] Registered Dietitian Dietitian, Registered 07/20/21
--- OUTSIDE RECORDS SUMMARY | 2024-10-16 10:26 | XMS_ITS | Encounter Summary ---
Author Organization [facility] Address [address] [place] [address] Care Team Providers Care Distance Learning Coordinator Name Role Phone [facility], [facility] Primary Care Provider + Hakan Barton MD Unavailable [phone] Venus Barnes MD Primary Care Provider [phone] Unavailable [phone] Jon Eng MD Unavailable [phone] Willam Jaramillo MD Primary Care Provider Encounter Details Date Type Department Care Team (Late st Contact Info) Description 05/22/2021 [facility] [address] [place] [address] Marleny Keller Diarrhea, unspecified type Social History Tobacco Use Types Packs/Day Years Used Date Smoking Tobacco: Former Cigarettes Comments:quit 2013 Alcohol Use Standard Drinks/Week Comments Yes 0 (1 standard drink = 0.6 oz pur e alcohol) occas Comments No Sex and Gender Information Value Date Recorded Sex Assigned at Not on file Legal Sex Female 3:09 AM DEPUTY SHERIFF LIEUTENANT Gender Identity Not on file Sexual Orientation [...] LABORATORY - 05/22/2021 9:15 PM CDT The Liquipel Xpert C. difficile Assay, performed on the Bityota Instrument Systems, is a qualitative in vitro [...] - MICRO GENERAL ORDERAB LES Final Result [facility] Infectious Diseases Diagnostic Lab (IDDL) [address] [facility], [address] [place] [address], [facility] [phone] documented in this encounter Visit Diagnoses Diagnosis [...] Out C-difficile 09/27/2021 09/27/2021 021 2:32 PM DEPUTY SHERIFF LIEUTENANT Rule Out C-difficile 01/14/2022 01/14/2022 022 6:15 PM CDT documented as of this encounter Care Teams Distance Learning Coordinator Relationship Specialty Start Date End Date [facility] [address] [place] [address] PCP - General 07/05/16 07/02/21 Venus Barnes MD [facility] [address] [place] [address] PCP - General 07/03/21 07/27/22 [place] [address] [place] [address] PCP - General 07/28/22 [place] [address] [place] [address] Assigned Gastroenterology Provider 05/07/21 08/30/23 Shar Bartlett, TAYLA [address] [place] [address] Registered Dietitian Dietitian, Registered 07/20/21 Jon Eng MD [address] [place] [address] [id number] [place] [address] Assigned Surgical Provider 04/14/22 documented as of this encounter
--- OUTSIDE RECORDS SUMMARY | 2024-10-16 10:26 | XMS_ITS | Encounter Summary ---
Author Organization [facility] Address [address] [place] [address] Care Team Providers Care Correctional Case Manager Name Role Phone Hakan Barton MD Unavailable Venus Barnes MD Primary Care Provider [phone] Unavailable [phone] Jon Eng MD Unavailable [phone] Willam Jaramillo MD Primary Care Provider Encounter Details Date Type Department Care Team (Late st Contact Info) Description 07/18/2021 [facility] [address] [place] [address] Jessica Davis RN Diarrhea, unspecified type Social History Tobacco Use Types Packs/Day Years Used Date Smoking Tobacco: Former Cigarettes Smokeless Tobacco: Never Comments:quit 2012 Alcohol Use Standard Drinks/Week Comments Yes 0 (1 standard drink = 0.6 oz pur e alcohol) occas Comments No Sex and Gender Information Value Date Recorded Sex Assigned at Not on file Legal Sex Female 3:09 AM CREDIT ASSOCIATE Gender Identity Not on file Sexual Orientation [...] - 49.9 mg/kg 07/19/2021 1:06 PM CDT [facility] Comment:Normal Stool RECTAL CONTENTS / Unknown Non-blood Collection / Unknown 07/18/2021 4:29 PM CDT 07/18/2021 4:29 PM CDT us Hakan Barton MD LAB - STOOLS ORDERABLES Fin al Result [facility] Specialty Core Lab [address] [facility], [address] [place] [address], [facility] [phone] * (ABNORMAL) Clostridium difficile Toxin B PCR (07/18/2021 4:29 PM CDT) Pathologist [facility] C Difficile Toxin B by PCR Positive( [...] LABORATORY - 07/18/2021 9:41 PM CDT The SkyWire Xpert C. difficile Assay, performed on the CepRepair Report Systems, is a qualitative in vitro diagnostic [...] ORDERAB LES Final Result [facility] Infectious Diseases Diagnostic Lab (IDDL) [address] [facility], [address] [place] [address], [facility] [phone] documented in this encounter Visit Diagnoses Diagnosis Diarrhea, unspecified type documented in this encounter Additional Health Concerns Infection Onset Date Last Indicated Resolved Time C-difficile 04/26/2021 07/18/2021 08/17/2021 11:3 9 PM CDT Rule Out C-difficile 07/18/2021 07/18/2021 021 9:41 PM CDT Rule Out C-difficile 09/27/2021 09/27/2021 021 2:32 PM CREDIT ASSOCIATE Rule Out C-difficile 01/14/2022 01/14/2022 022 6:15 PM CDT documented as of this encounter Care Teams Correctional Case Manager Relationship Specialty Start Date End Date Venus Barnes MD [facility] [address] [place] [address] PCP - General 07/03/21 07/27/22 [place] [address] [place] [address] PCP - General 07/28/22 [place] [address] [address] [place] [address] Assigned Gastroenterology Provider 05/07/21 08/30/[address] [place] [address] Registered Dietitian Dietitian, Registered 07/20/21 Jon Eng MD [address] [facility] [id number] [place] [address] Assigned Surgical Provider 04/14/22 documented as of this encounter
--- OUTSIDE RECORDS SUMMARY | 2024-10-16 10:26 | XMS_ITS | Encounter Summary ---
Author Organization [facility] Address [address] [place] [address] Care Team Providers Care Stereoplotter Operator Name Role Phone [facility], [facility] Primary Care Provider + Hakan Barton MD Unavailable [phone] Venus Barnes MD Primary Care Provider [phone] Unavailable [phone] Jon Eng MD Unavailable [phone] Willam Jaramillo MD Primary Care Provider Encounter Details Date Type Department Care Team (Late st Contact Info) Description 06/20/2021 [facility] Only [facility] [address] [place] [address] [place] Diarrhea, unspecified type Social History Tobacco Use Types Packs/Day Years Used Date Smoking Tobacco: Former Cigarettes Comments:quit 2013 Alcohol Use Standard Drinks/Week Comments Yes 0 (1 standard drink = 0.6 oz pur e alcohol) occas Comments No Sex and Gender Information Value Date Recorded Sex Assigned at Not on file Legal Sex Female 3:09 AM IT 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 Gender Identity Not on file Sexual Orientation [...] - 49.9 mg/kg 06/21/2021 2:08 PM CDT [facility] Comment:Normal Stool RECTAL CONTENTS / Unknown Non-blood Collection / Unknown 06/20/2021 11:00 AM CDT 06/20/2021 11:41 AM CDT Hakan Barton MD LAB - STOOLS ORDERABLES Fin al Result [facility] Special[facility] Core Lab [address] [facility], [address] [place] [address], [facility] [phone] * (ABNORMAL) Clostridium difficile Toxin B PCR [...] LABORATORY - 06/20/2021 3:31 PM CDT The [email or web address].com Xpert C. difficile Assay, performed on the [email or web address].com GeneXTalend Instrument Systems, is a qualitative in vitro [...] ORDERAB LES Final Result [facility] Infectious Diseases Diagnostic Lab (IDDL) [address] [facility], [address] [place] [address] [place] [phone] documented in this encounter Visit Diagnoses Diagnosis Diarrhea, unspecified type documented in this encounter Additional Health Concerns Infection Onset Date Last Indicated Resolved Time C-difficile 04/26/2021 07/18/2021 08/17/2021 11:3 9 PM CDT Rule Out C-difficile 06/20/2021 06/20/2021 021 3:31 PM CDT Rule Out C-difficile 07/18/2021 07/18/2021 021 9:41 PM CDT Rule Out C-difficile 09/27/2021 09/27/2021 021 2:32 PM IT 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 Rule Out C-difficile 01/14/2022 01/14/2022 022 6:15 PM CDT documented as of this encounter Care Teams Stereoplotter Operator Relationship Specialty Start Date End Date [facility] [place] [address] PCP - General 07/05/16 07/02/21 Venus Barnes MD [facility] [address] [place] [address] PCP - General 07/03/21 07/27/22 [place] [address] [place] [address] PCP - General 07/28/22 [place] [address] [place] [address] Assigned Gastroenterology Provider 05/07/21 08/30/[address] [place] [address] Registered Dietitian Dietitian, Registered 07/20/21 Jon Eng MD [address] [place] [address] [id number] [place] [address] Assigned Surgical Provider 04/14/22 documented as of this encounter
--- OUTSIDE RECORDS SUMMARY | 2024-10-16 10:27 | XMS_ITS | Referral Summary ---
Author Organization [facility] Address [address] [place] [address] Care Team Providers Care Jewelry Sales Name Role Phone Elsewhere, Pcp Primary Care Provider Unavailabl e Source Comments Patient records contain information from all sites at [facility]. For routine questions regarding patient records, call [phone] during business hours, M-F 8:00 AM - 5:00 PM Central Time. Record requests for emergency care only can be directed to [phone] at any time.[facility] Encounters Date Type Department Care Team Description 10/09/2024 8:46 AM PERCUSSION TUNER - 10/09/2024 1:37 PM PERCUSSION TUNER Hospital Encounter Department of Radiation Oncology in [address] [address] Hanh Marquez M.D. 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 08/31/2024 3:30 PM PERCUSSION TUNER - 08/31/2024 4:08 PM PERCUSSION TUNER Hospital Encounter Department of Radiation Oncology in [place], [place] [address] [place] [phone] Hanh Marquez M.D. Malignant Neoplasm Of Lung [...] Take 100 mg by mouth daily. 02/19/20 23 Active vancomycin (VANCOCIN) 125 mg capsule Take 125 mg by mouth daily. 06/20/20 21 Active rosuvastatin (CRESTOR) 20 mg tablet Take 20 mg by mouth daily. 02/19/20 23 Active nebulizer accessories kit Nebulizer, disposable neb kit x 4, reuseable neb kit x 1, mask x 1, filters x 1. Frequency of use: daily; Medication: duoneb Length of need:lifetime 12/21/19 20 Active vancomycin (FIRVANQ) 25 mg/mL solution Take 125 mg by mouth. 04/27/20 21 Active azithromycin (ZITHROMAX) 250 mg tablet TAKE [...] Active Problems Problem Noted Date Diagnosed Date Malignant Neoplasm Of Lung Small Cell Left 10/09 Secondary Malignant Neoplasm Bone 10/09/2024 Dehydration 07/02/2023 Anuria 07/02/2023 Malignant Neoplasm Of [...] on file Legal Sex Female 5:18 PM PERCUSSION TUNER Gender Identity Not on file Sexual Orientation Not on file Last Filed Vital Signs Vital Sign Reading Time Taken Comments Blood Pressure 153/69 08/28/2023 11:29 AM PERCUSSION TUNER Pulse 66 08/28/2023 11:29 AM PERCUSSION TUNER Temperature 36.5 C (97.7 F) 08/28/2023 11:29 AM PERCUSSION TUNER Respiratory Rate - - Oxygen Saturation - - Inhaled Oxygen Concentration - - Weight 44.7 kg (98 lb 8.7 oz) 08/28/2023 11:29 A M PERCUSSION TUNER Height 166 cm (5' 5.35) 12/09/2012 8:39 AM PERCUSSION TUNER Body Mass Index - - Plan of Treatment Upcoming Encounters Date Type Department Care Team (Late st Contact Info) Description 12/04/2024 3:30 PM PERCUSSION TUNER Appointment Department of Radiation Oncology in [place], [place] [address] [place] [phone] Hanh Marquez M.D. [address] [place] [address] Medical Devices Implanted Type Area Retail Product Advisor Device Identifier Shelf Expiration Date Model / Serial / Lot Hardware E.G. Pins/Screws/R ods Hardware e.g. pins/screws/ rods Duodenum Description:Williams Procedures Procedure Name Priority Date/Time Associated Diagnosis Comments OUTSIDE CT BODY Routine 09/29/2024 7:35 AM PERCUSSION TUNER OUTSIDE CT MSK Routine 09/16/2024 12:00 AM PERCUSSION TUNER OUTSIDE MR NEURO Routine 09/02/2024 3:25 PM PERCUSSION TUNER OUTSIDE NM PET Routine 08/28/2024 10:50 AM PERCUSSION TUNER OUTSIDE CT BODY Routine 08/17/2024 10:25 AM PERCUSSION TUNER COLONOSCOPY Routine 01/23/2013 1:25 PM CDT from Last 3 Months or Most Recently Relevant to Health Maintenance Results * CT CHEST WO-Outside CT Body (09/29/2024 7:35 AM PERCUSSION TUNER) Only the most recent of2 resultswithin the time period is included. Narrative IIMS - 10/02/2024 3:05 PM PERCUSSION TUNER This order has been created and auto-finalized to support the import of outside images. If available, original interpretation can be found on the Media Tab in Chart Review, in Document Viewer, as an image in QREADS or as an Addendum. If a re-interpretation or overread is required please follow defined workflow. us Provider Not In System IMG CT PROCEDURES Final R esult Performing Organization Address [facility] de Phone Number IIMS NA * CT Biopsy Bone Deep-Outside CT MSK (09/16/2024 12:00 AM PERCUSSION TUNER) Narrative [facility] - 10/02/2024 2:38 PM PERCUSSION TUNER This order has been created and auto-finalized to support the import of outside images. If available, original interpretation can be found on the Media Tab in Chart Review, in Document Viewer, as an image in QREADS or as an Addendum. If a re-interpretation or overread is required please follow defined workflow. us Provider Not In System IMG CT PROCEDURES Final R esult Performing Organization Address [facility] de Phone Number IIMS NA * MR Brain WO W(Unpaired)-Outside MR Neuro (09/02/2024 3:25 PM PERCUSSION TUNER) Narrative [facility] - 09/03/2024 2:43 PM PERCUSSION TUNER This order has been created and auto-finalized to support the import of outside images. If available, original interpretation can be found on the Media Tab in Chart Review, in Document Viewer, as an image in QREADS or as an Addendum. If a re-interpretation or overread is required please follow defined workflow. us Provider Not In System IMG MRI PROCEDURES Final Result Performing Organization Address [facility] de Phone Number IIMS NA * PET CT Body Skull Base to Mid Thigh-Outside NM Pet (08/28/2024 10:50 AM PERCUSSION TUNER) Narrative [facility] - 09/01/2024 9:49 AM PERCUSSION TUNER This order has been created and auto-finalized to support the import of outside images. If available, original interpretation can be found on the Media Tab in Chart Review, in Document Viewer, as an image in QREADS or as an Addendum. If a re-interpretation or overread is required please follow defined workflow. Provider Not In System IMG NM PROCEDURES Final R esult IIMS NA * Colonoscopy (01/23/2013 1:25 PM CDT) 01/23/2013 1:25 PM CDT Siva Philip M.D. GI PROCEDURE ORDERABLES Fin al Result [facility] [address] [place] [address] from Last 3 Months or Most Recently Relevant to Health Maintenance Insurance MEDICARE [facility] Care Teams Jewelry Sales Relationship Specialty Start Date End Date Elsewhere, Pcp PCP - General Family Medicine 05/07/23
--- OUTSIDE RECORDS SUMMARY | 2024-10-16 10:27 | XMS_ITS ---
Author Organization [facility] Address [address] [place] [address] Care Team Providers Care Pallet Sorter Name Role Phone Elsewhere, Pcp Primary [...] Treated Prescribed Fraction Dose Prescribed Total Dose [id number] 07/03/2023 49 30 of 30 200 cGy 6,000 cGy Reference Point Last Treated On Elapsed Days Session Dose Total Dose [id number] 07/03/2023 49 200 cGy 6,000 cGy
--- OUTSIDE RECORDS SUMMARY | 2024-10-16 10:27 | XMS_ITS ---
Author Organization [facility] Address [address] [place] [address] Care Team Providers Care Tape Machine Tailer Name Role Phone Unavailable Unavailable Unavailable Surgery Details Not on file Complications Check Surgery Details section. Procedure Estimated Blood Loss Check Surgery Details section. Procedure Findings Check Surgery Details section. Procedure Specimens Taken Check Surgery Details section.
--- OUTSIDE RECORDS SUMMARY | 2024-10-16 10:27 | XMS_ITS | Clinical Summary ---
Author Organization [facility] Address [address] [place] [address] Care Team Providers Care Child Health Associate Name Role Phone Elsewhere, Pcp Primary Care Provider Unavailabl e Source Comments Patient records contain information from all sites at [facility]. For routine questions regarding patient records, call [phone] during business hours, M-F 8:00 AM - 5:00 PM Central Time. Record requests for emergency care only can be directed to [phone] at any time.[facility] Allergies Active Allergy Reactions Criticality Noted Date [...] Department Care Team Description 10/09/2024 8:46 AM GREEN CHAIN WORKER - 10/09/2024 1:37 PM GREEN CHAIN WORKER Hospital Encounter Department of Radiation Oncology in [address] [phone] Hanh Marquez M.D. 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) (Primary Dx) 09/01/2024 Tumor Board Conference Department of Radiation Oncology in [place], [place] [address] [place] [address] Hanh Marquez M.D. 08/31/2024 3:30 PM GREEN CHAIN WORKER - 08/31/2024 4:08 PM GREEN CHAIN WORKER Hospital Encounter Department of Radiation Oncology in [place], [place] [address] [place] [phone] Hanh Marquez M.D. Malignant Neoplasm Of Lung [...] on file Legal Sex Female 5:18 PM GREEN CHAIN WORKER Gender Identity Not on file Sexual Orientation Not on file Last Filed Vital Signs Vital Sign Reading Time Taken Comments Blood Pressure 153/69 08/28/2023 11:29 AM GREEN CHAIN WORKER Pulse 66 08/28/2023 11:29 AM GREEN CHAIN WORKER Temperature 36.5 C (97.7 F) 08/28/2023 11:29 AM GREEN CHAIN WORKER Respiratory Rate - - Oxygen Saturation - - Inhaled Oxygen Concentration - - Weight 44.7 kg (98 lb 8.7 oz) 08/28/2023 11:29 A M GREEN CHAIN WORKER Height 166 cm (5' 5.35) 12/09/2012 8:39 AM GREEN CHAIN WORKER Body Mass Index - - Plan of Treatment Upcoming Encounters Date Type Department Care Team (Late st Contact Info) Description 12/04/2024 3:30 PM GREEN CHAIN WORKER Appointment Department of Radiation Oncology in [place], [place] [address] [place] [phone] Hanh Marquez M.D. [address] [place] [address] Health Maintenance Due Date Last Done Comments [...] Additional history exists Sodium Level 07/22/2024 07/22/2023, 2 , 02/07/2023, Additional history exists DTaP,Tdap,and Td Vaccines (2 - Td or Tdap) 06/19/2026 06/19/2016 Fasting Glucose for Diabetes Screening 07/22/2026 07/22/2023, 05/02/2023, 02/07/2023, Additional history exists Colonoscopy 07/03/2031 07/03/2021, 03/0 10/2020, 01/23/2013, Additional history exists Colorectal Cancer Screening 07/03/2031 Pneumococcal vaccine (50+ years) Completed 06/28/2020, 08/27/2019 HPV Vaccines Aged Out No longer eligi ble based on patient's age to complete this topic IPV Vaccines Aged Out No longer eligi ble based on patient's age to complete this topic Medical Devices Implanted Type Area Air Quality Instrument Specialist Device Identifier Shelf Expiration Date Model / Serial / Lot Hardware E.G. Pins/Screws/R ods Hardware e.g. pins/screws/ rods Duodenum Description:Williams Procedures Procedure Name Priority Date/Time Associated Diagnosis Comments OUTSIDE CT BODY Routine 09/29/2024 7:35 AM GREEN CHAIN WORKER OUTSIDE CT MSK Routine 09/16/2024 12:00 AM GREEN CHAIN WORKER OUTSIDE MR NEURO Routine 09/02/2024 3:25 PM GREEN CHAIN WORKER OUTSIDE NM PET Routine 08/28/2024 10:50 AM GREEN CHAIN WORKER OUTSIDE CT BODY Routine 08/17/2024 10:25 AM GREEN CHAIN WORKER COLONOSCOPY Routine 01/23/2013 1:25 PM CDT from Last 3 Months or Most Recently Relevant to Health Maintenance Results * CT CHEST WO-Outside CT Body (09/29/2024 7:35 AM GREEN CHAIN WORKER) Only the most recent of2 resultswithin the time period is included. Narrative IIAK - 10/02/2024 3:05 PM GREEN CHAIN WORKER This order has been created and auto-finalized [...] PROCEDURES Final R esult Performing Organization Address [facility] de Phone Number IIMS NA * CT Biopsy Bone Deep-Outside CT MSK (09/16/2024 12:00 AM GREEN CHAIN WORKER) Narrative IIAK - 10/02/2024 2:38 PM GREEN CHAIN WORKER This order has been created and auto-finalized [...] PROCEDURES Final R esult Performing Organization Address [facility] de Phone Number IIMS NA * MR Brain WO W(Unpaired)-Outside MR Neuro (09/02/2024 3:25 PM GREEN CHAIN WORKER) Narrative IIAK - 09/03/2024 2:43 PM GREEN CHAIN WORKER This order has been created and auto-finalized [...] MRI PROCEDURES Final Result Performing Organization Address [facility] de Phone Number IIMS NA * PET CT Body Skull Base to Mid Thigh-Outside NM Pet (08/28/2024 10:50 AM GREEN CHAIN WORKER) Narrative IIMS - 09/01/2024 9:49 AM GREEN CHAIN WORKER This order has been created and auto-finalized to support the import of outside images. If available, original interpretation can be found on the Media Tab in Chart Review, in Document Viewer, as an image in QREADS or as an Addendum. If a re-interpretation or overread is required please follow defined workflow. us Provider Not In System IMG NM PROCEDURES Final R esult IIAK NA * Colonoscopy (01/23/2013 1:25 PM CDT) 01/23/2013 1:25 PM CDT Siva Philip M.D. GI PROCEDURE ORDERABLES Fin al Result Performing Organization Address City/[facility]/ZIP Co de Phone Number [facility] [address] [place] [address] from Last 3 Months or Most Recently Relevant to Health Maintenance Insurance MEDICARE [facility] Care Teams Child Health Associate Relationship Specialty Start Date End Date Elsewhere, Pcp PCP - General Family Medicine 05/07/23
--- OUTSIDE RECORDS SUMMARY | 2024-10-16 10:27 | XMS_ITS | Encounter Summary ---
Author Organization [facility] Address [address] [place] [address] Care Team Providers Care Binder Stripper Machine Name Role Phone Elsewhere, Pcp Primary Care Provider Unavailabl e Reason for Visit * Appointment Request (Routine) - Closed Specialty Diagnoses / Procedures Referred By Contac t Referred To Contact Radiation Oncology Diagnoses 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) Zahira Cortez M.D. Phone: tel: fax: Referral ID Status Reason Start Date Expiration Date Visits Re quested Visits Authorized [id number] Closed 10/02/2024 10/02/2025 1 1 Encounter Details Date Type Department Care Team (Latest Contact Info) Description 10/09/2024 8:46 AM GROUP HOME SUPERVISOR - 10/09/2024 1:37 PM [facility] [place] Hospital Encounter Department of Radiation Oncology in [place], [place] [address] [place] [phone] Hanh Marquez M.D. 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 4 albuterol 2.5 mg /3 mL nebulizer solution Inhale 2.5 mg every 4 (four) hours as needed for shortness of breath or wheezing. 0 amLODIPine (NORVASC) 2.5 mg tablet Take 2.5 mg by mouth daily. 3 azithromycin (ZITHROMAX) 250 mg tablet TAKE 1 TABLET (250 MG) BY MOUTH EVERY DAY FOR 4 DAYS STARTING TOMORROW 04/30/23 3 budesonide-formoter oL (SYMBICORT) 160-4.5 mcg/actuation inhaler Inhale 2 puffs 2 (two) times a day as needed. 3 codeine-guaiFENesin (ROBITUSSIN-AC) 10-100 mg/5 mL liquid Take 10 mL by mouth Medrol Dose Pack scheduling ONLY. 3 diazePAM (VALIUM) 5 mg tablet TAKE 1 TABLET BY MOUTH EVERY 6 HOURS IF NEEDED FOR ANXIETY. TAKE 30 MINUTES PRIOR TO MRI. MAY REPEAT ONCE 3 diphenhydramine-lid ocaine-antacid (MAGIC MOUTHWASH) 1:1:1 Apply 5 mL to cheek daily as needed. 3 HYDROcodone-acetami nophen (NORCO) 5-325 mg per tablet TAKE 1 tablet orally every 4 hours as needed for pain. as needed for cancer related pain.* 3 lidocaine 2 % mouth solution Take 5 mL by mouth 4 (four) times a day. 3 lidocaine-prilocain e (EMLA) 2.5-2.5 % cream 1 application topically once as needed for pain. Apply pea sized amount over port site 60 minutes prior to use; cover with plastic wrap.* 3 lisinopriL (PRINIVIL,ZESTRIL) 40 mg tablet Take 40 mg by mouth daily. 3 LORazepam (ATIVAN) 0.5 mg tablet Take 1 tablet (0.5 mg total) by mouth 2 (two) times a day. 60 tablet 3 losartan (COZAAR) 100 mg tablet Take 100 mg by mouth daily. 3 metoprolol succinate (TOPROL-XL) 100 mg 24 hr tablet Take 100 mg by mouth daily. 3 nebulizer accessories kit Nebulizer, disposable neb kit x 4, reuseable neb kit x 1, mask x 1, filters x 1. Frequency of use: daily; Medication: duoneb Length of need:lifetime 0 OLANZapine (ZyPREXA) 5 mg tablet Take 5 mg by mouth at bedtime. 3 ondansetron ODT (ZOFRAN-ODT) 4 mg disintegrating tablet DISSOLVE ONE OR TWO TABLETS IN MOUTH EVERY EIGHT HOURS NEEDED FOR NAUSEA OR VOMITING* 3 ondansetron ODT (ZOFRAN-ODT) 4 mg disintegrating tablet Dissolve 1 tablet (4 mg total) in the mouth every 8 (eight) hours as needed for nausea or vomiting. 20 tablet 3 3 oxyCODONE-acetamino phen (PERCOCET) 5-325 mg per tablet 05/11/20 2 3 prochlorperazine (COMPAZINE) 10 mg tablet Take 10 mg by mouth every 6 (six) hours as needed. for nausea 3 rosuvastatin (CRESTOR) 20 mg tablet Take 20 mg by mouth daily. 3 vancomycin (FIRVANQ) 25 mg/mL solution Take 125 mg by mouth. 1 vancomycin (VANCOCIN) 125 mg capsule Take 125 mg by mouth daily. 1 documented as of this encounter Consult Notes * Nicole Robertson APRN, C.N.P., D.N.P. - 10/09/2024 9:00 AM CST SUBJECTIVE REQUESTING PROVIDER Zahira Cortez M.D. LXV-NEFA-FL-FACE PHONE VISIT Follow-up visit conducted via telephone by Nicole Robertson APRN, C.N.P. to the patient and her daughter, Saira, at [phone]. Verbal consent was obtained for this telephone visit by the patient during the encounter. Telephone medical visits may be billed to insurance the same as if the patientwere being seen face to face. REASON FOR CONSULT 1. Secondary Malignant Neoplasm Bone (HCC) 2. Malignant Neoplasm Of Lung Small Cell Left (HCC) SUPERVISED BY: Hanh Marquez M.D. HISTORY OF PRESENT ILLNESS Mrs. Racheal Regalado is a 74 y.o. 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 She completed chemoradiotherapy on July 03, 2023. This was followedby 1 year of durvalumab completed in July 2024. 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 She initiated chemotherapy on October 05, 2024. She presents today for an opinion regarding the role of radiation therapy in the management of her disease. Her oncologic history is as follows: Oncology History 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) 03/02/2023 Other Patient presented to emergency room in [place], [place] for elevated blood pressure at home, [...] by Dr. Tobin Ardon, thoracic surgery at [facility]. Recommend referral to Medical Oncology. Did not feel patient was a surgical candidate given the higher stage. 04/19/2023 Critical Imaging MRI brain demonstrated no evidence of intracranial metastases. 04/26/[address] Zahira Cortez, [facility]. Recommended concurrent chemoradiation with weekly Carbo/Taxol. 05/08/2023 Other Video visit with Medical Oncology at [facility] in [place]. Agreed with the diagnosis and staging of [id number] lung cancer as first described by Dr. Cortez. Agreed with the recommendations of concurrent chemoradiation followed by maintenance durvalumab for 1 year. Patient will proceed with local treatment. 05/2023 - 06/19/2023 Chemotherapy Weekly carboplatin and Taxol with radiation 05/15/2023 - 07/03/2023 Radiation Therapy Concurrent chemoradiotherapy to the tumor in the left lower lobe of the lung and the mediastinum to a dose of 6000 cGy in 30 fractions. [...] pathologically enlarged mediastinal or hilar lymph nodes. 07/2023 - 07/2024 Biological/Targeted/Hormone Therapy Maintenance durvalumab 09/19/2023 Critical Imaging PET/CT at [facility] demonstrated majority of pulmonary consolidations [...] scarring with in the right middle lobe. 08/17/[address] chest, abdomen and pelvis demonstrated: Increased left perihilar soft tissue thickening extending along the superior aspect of the left lower lobe and fissure recurrent disease not excluded. Decreased size of previous air-filled cavity. Tree-in-bud opacities left lower lobe appears resolved similar appearance of chronic right middle lobe atelectasis and bibasilar atelectasis scarring. No acute findings in the abdomen or pelvis. Malignant Neoplasm Of Lung Small Cell Left (HCC) 08/17/[address] chest, abdomen and pelvis demonstrated: Increased left perihilar soft tissue thickening extending along the superior aspect of the left lower lobe and fissure recurrent disease not excluded. Decreased size of previous air-filled cavity. Tree-in-bud opacities left lower lobe appears resolved similar appearance of chronic right middle lobe atelectasis and bibasilar atelectasis scarring. No acute findings in the abdomen or pelvis. 08/28/2024 Critical Imaging PET/CT demonstrated: Development of FDG avid nodule in the left lower lobe, FDG avid thoracic lymph nodes, FDG avid osseous lesion in the right posterior iliac bone suspicious for metastases and progression of disease. 09/01/2024 Tumor Board Tumor board recommended biopsy and considering chemotherapy. 09/02/2024 Critical Imaging MR brain negative for intracranial metastases 09/16/2024 Biopsy/Pathology Final Diagnosis A) BONE, RIGHT ILIAC LESION, NEEDLE CORE BIOPSY WITH TOUCH IMPRINTS: 1. Positive for malignancy; metastatic small cell carcinoma 2. See comment 09/29/[address] Chest IMPRESSION: 1. FDG avid 11 x 13 mm left lower lobe nodule, new compared to [...] induced lung disease. Left lower lobe interlobular septalthickening is consistent with interstitial edema. Lymphangitic carcinomatosis is included in the differential diagnosis. 09/29/2024 Biopsy/Pathology Final Diagnosis A) LUNG, LEFT LOWER LOBE NODULE, ROBOTIC BRONCHOSCOPY-GUIDED TRANSBRONCHIAL FINE-NEEDLE ASPIRATION AND FORCEPS BIOPSY WITH [...] Lymphocytes present, consistent with lymph node sampling 10/02/[address] Cortez recommended initiation of gakona, etoposide, and atezolizumab chemo/immunotherapy. Referral to Radiation to discuss PCI versus serial MRI imaging and possible radiation treatment to painful osseous metastasis in the right hip 10/05/2024 - Chemotherapy Initiated chemotherapy with Dr. Cortez INTERVAL HISTORY The patient reports to be doing okay overall. She was recently found to have extensive stage small-cell carcinoma and with that progressive right hip pain. She reports pain in her right hip developedaround the time of her biopsy in early September. It has progressively worsened over the last month,but has not affected her overall quality of life and mobility. She reports the pain in her right hip to be intermittent and musculoskeletal in nature. She does find it is worse after sitting for longperiods of time or laying on the right side. At its worst, she rates the pain 3/10. She is able to get up and move or role off of her right side which helps alleviate the pain. She has taken Tylenol a couple of times and finds this helpful. She is overall not bothered by the pain but does acknowledge it is there. She denies any other new or changing symptoms. REVIEW OF SYSTEMS Review of systems was negative except as documented above. 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 I had a discussion with them regarding her extensive stage small-cell lung cancer diagnosis including the staging. Dr. Cortez has started her on chemotherapy which she is tolerating well for the most part. The patient was referred to us to discuss the role of radiation treatment to her metastatic osseous disease in the right hip and prophylactic cranial irradiation. The patient is experiencing mild pain to the right hip which is not affecting her mobility or quality of life at this time. We discussed the role of radiation treatment in the management of her extensive stage small-cell carcinoma would be to help with symptom management or progressive disease through systemic therapy. Being that she just started on systemic therapy and her symptoms are minimal, we would like to see how disease in her right hip responds to this before pursuing radiation treatment. We also discussed the role of PCI with extensive stage small-cell lung cancer and that it is notsomething we pursue regularly these days. We discussed close observation with serial brain MRI imaging and would address brain radiation treatment if she were to develop intracranial metastases. The patient and her daughter verbalized understanding of our discussion. We asked that the patient contact us if pain in her right hip continues to progressively worsen despite systemic therapy or if she has other new concerning symptoms. We will defer to Dr. Diego lemon to order and manage continued disease related imaging. Patient also contacted by Dr. Marquez, please review her attestation for additional information. The patient was provided with our contact information. She was asked to contact us with questions or concerns. She verbally expressed her understanding of the plan. EDUCATION Ready to learn, no apparent learning barriers were identified; learning preferences include listening. Explained diagnosis and treatment plan; patient expressed understanding of the content. I personally spent 35 minutes in care of the patient today. Time includes both non face to face andface to face patient care. Signed by: Nicole Robertson APRN, Douglas.N.Xena, D.N.PMarlena 10/09/2024 10:12 AM GROUP HOME SUPERVISOR [facility] [address] [place] [address] Cosigned by Hanh Marquez M.D. at 10/09/2024 1:36 PM GROUP HOME SUPERVISOR P HOME SUPERVISOR P HOME SUPERVISOR Associated attestation - Hanh Marquez M.D. - 10/09/2024 1:36 PM GROUP HOME SUPERVISOR RADIATION ONCOLOGY PHONE CONSULT I saw and evaluated the patient and participated in the galvan portions of the service. I reviewed thedocumentation of Ms. Nicole Robertson APRN and agree with the findings and plan. Please see Ms. Robertson's detailed note for the patient's initial presentation and work-up. Briefly, Mrs. Regalado is a very pleasant 74 year old female who is well known to me from her prior left lung Stage IIIB lung cancer that was treated with chemo/radiotherapy in 2022 followed by Durvalumab who now has biopsy proven extensive stage small cell lung cancer and presents to discuss palliative and pr ophylactic cranial irradiation (PCI) options. She just started her chemo/immunotherapy this Saturday. I have independently reviewed her imaging, operative and pathology reports. On exam, she sounds well on the phone with some mild hoarseness, but no conversational dyspnea. We discussed the findings above and below in this note with the patient and her daughter, Saira. Wediscussed her treatment alternatives. We discussed the rationale, risks, side effects and palliative goals of radiation therapy. Her right pelvic isn't symptomatic, so starting with systemic therapy is very reasonable. If her pain worsens, we could re-evaluate her any time. We also discussed the possibility of radiation to the right hip if there is oligoresidual disease after 4-6 cycles of chemotherapy. I told her I thought it would be unlikely that we could re-treat her chest given her prior radiation. I explained the history and evolution over time of PCI for small cell lung cancer. It has really fallen out of favor for patient with ESCLC. I explained that there is an ongoing trial of PCI vs serial MRIs; this study is not open at [facility]. In the absence of the study, we typically do not recommend PCI. We talked about serial MRIs every three months (or sooner if neurologic symptoms develop). We talked about stereotactic radiosurgery vs whole brain radiation therapy depending on the number and location of brain metastases. Again, we are not recommending PCI at this point. I would be happy to re-evaluate her again at any point. Their questions were answered; they were comfortable with this plan. My thanks to Drs. Cortez and Clint for the opportunity to participate in this patient's care. EDUCATION Ready to learn, no apparent learning barriers were identified; learning preferences include listening. Explained diagnosis and treatment plan; patient expressed understanding of the content. 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 10/09/2024 1:26 PM GROUP HOME SUPERVISOR Radiation Oncology [facility] [address] [place] [address] documented in this encounter Plan of Treatment Upcoming Encounters Date Type Department Care Team (Late st Contact Info) Description 12/04/2024 3:30 PM GROUP HOME SUPERVISOR Appointment Department of Radiation Oncology in [place], [place] [address] [place] [address] Hanh Marquez M.D. [address] [place] [address] documented as of this encounter Visit Diagnoses Diagnosis Secondary Malignant Neoplasm Bone (HCC)- Primary Malignant Neoplasm Of Lung Small Cell Left (HCC) documented in this encounter Care Teams Binder Stripper Machine Relationship Specialty Start Date End Date Elsewhere, Pcp PCP - General Family Medicine 05/07/23 documented as of this encounter
--- OUTSIDE RECORDS SUMMARY | 2024-10-16 10:27 | XMS_ITS | Encounter Summary ---
Author Organization [facility] Address [address] [place] [address] Care Team Providers Care Professor Of Surgery Name Role Phone Elsewhere, Pcp Primary Care Provider Unavailabl e Encounter Details Date Type Department Care Team (Late st Contact Info) Description 09/01/2024 Tumor Board Conference Department of Radiation Oncology in [place], [place] [address] [place] [phone] Hanh Marquez M.D. [address] [place] [address] Social History Tobacco Use Types Packs/Day Years [...] on file Legal Sex Female 5:18 PM FEED MANAGER Gender Identity Not on file Sexual Orientation Not on file documented as of this encounter Miscellaneous Notes * Tumor Board Note - Hanh Marquez M.D. - 09/01/2024 3:26 PM CST MULTIDISCIPLINARY TUMOR BOARD NOTE This patient's case was presented at our multidisciplinary tumor board on 09/01/2024 by Hanh Marquez. Diagnosis: Adenocarcinoma of the left lower lung Stage: Cancer Staging 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) Staging form: Lung, AJCC 8th Edition - Clinical stage from 04/12/2023: Stage IIIB (cT1b, cN3, cM0) Imaging reviewed: yes, We reviewed her PET/CTs from August 28, 2024, September 19, 2023 and April 02, 2023 Pathology reviewed: n/a Discussion: We reviewed her imaging as noted above. Her imaging is concerning for local, regional and distant disease. Recommendation: The board agreed with considering a biopsy and systemic chemotherapy. Hanh Marquez M.D. Note: Tumor board recommendations are developed via multidisciplinary specialty participation with the most current information available at that time, therefore, final treatment plan is to be decided between the patient and the treating physician. MANAGER documented in this encounter Plan of Treatment Upcoming Encounters Date Type Department Care Team (Late st Contact Info) Description 12/04/2024 3:30 PM FEED MANAGER Appointment Department of Radiation Oncology in [place], [place] [address] [place] [phone] Hanh Marquez M.D. [address] [place] [address] documented as of this encounter Visit Diagnoses Not on filedocumented in this encounter Care Teams Professor Of Surgery Relationship Specialty Start Date End Date Elsewhere, Pcp PCP - General Family Medicine 05/07/23 documented as of this encounter
--- OUTSIDE RECORDS SUMMARY | 2024-10-16 10:27 | XMS_ITS | Encounter Summary ---
Author Organization [facility] Address [address] [place] [address] Care Team Providers Care Corn Breeder Name Role Phone Elsewhere, Pcp Primary Care Provider Unavailabl e Reason for Referral * Outpatient (Routine) - Authorized Specialty Diagnoses / Procedures Referred By Contac t Referred To Contact Radiation Oncology Hanh Marquez M.D. [address] [place] [address] Phone: tel: fax: [facility] Referral ID Status Reason Start Date Expiration Date V isits Requested Visits Authorized [id number] Authorized 09/03/2024 03/05/2026 1 1 E * Outpatient (Routine) - Closed Specialty Diagnoses / Procedures Referred By Contac t Referred To Contact Radiation Oncology Hanh Marquez M.D. [address] [place] [address] Phone: tel: [facility] Referral ID Status Reason Start Date Expiration Date Visits Re quested Visits Authorized [id number] Closed 08/31/2024 03/02/2026 1 1 Scheduling Instructions Phone return, please get the PET/CT images and report from 08/[address] Cortez's last two notes, please. Thanks! E Reason for Visit * Outpatient (Routine) - Closed Specialty Diagnoses / Procedures Referred By Contac t Referred To Contact Radiation Oncology Hanh Marquez M.D. [address] [place] [address] Phone: tel: fax: [facility] Referral ID Status Reason Start Date Expiration Date Visits Re quested Visits Authorized [id number] Closed 08/31/2024 03/02/2026 1 1 Encounter Details Date Type Department Care Team (Latest Contact Info) Description 09/03/2024 1:45 PM NURSE - 09/03/2024 10:25 PM NURSE Hospital Encounter Department of Radiation Oncology in [place], [place] [address] [place] [address] Hanh Marquez M.D. [address] [place] [address] Malignant Neoplasm Of Lung Lower Lobe Or [...] on file Legal Sex Female 5:18 PM NURSE Gender Identity Not on file Sexual Orientation [...] daily. 1 documented as of this encounter Progress Notes * Hanh Marquez M.D. - 09/03/2024 2:00 PM CST RADIATION ONCOLOGY PHONE FOLLOW-UP NOTE SUBJECTIVE REFERRAL SOURCE Established patient DIAGNOSIS 1. Left lower lung adenocarcinoma Consult conducted via real-time audio/video technology by Hanh Marquez M.D. in [facility] to the patient in Patient's Home CHIEF COMPLAINT/REASON FOR VISIT Mrs. Racheal Regalado is a 74-year-old female with adenocarcinoma of the left lower lobe of the lung. She completed chemoradiotherapy on July 03, 2023. She returns for a focused phone visit. INTERVAL HISTORY: Since I last saw Mrs. Racheal Regalado she reports that she did receive the results from the PET/CT. She states that she had an MRI of the brain yesterday and this was negative per patient. I have requested these images and report. OBJECTIVE There were no vitals taken for this phone visit. General: Mrs. Racheal Regalado sounded well on the phone with no conversational dyspnea. DIAGNOSTICS I have reviewed the available imaging, operative and pathology reports as described above and reviewed in the EMR. DIAGNOSTICS I have reviewed the available imaging, operative [...] [facility] due to pneumonia and A. Fib #4 PET/CT from August 28, 2024, showing FDG avidity in the chest, mediastinum and right pelvis, concerning for recurrence and metastases, biopsy pending I reviewed the above findings with Mrs. Regalado on the phone. I shared with her that I reviewed herrecent imaging as well and see concerning findings in her lungs, lymph nodes and right pelvis. I shared that I was able to review her case with our daily tumor board and they agree with biopsy which Dr. Cortez has already arranged and would likely consider chemotherapy. She knows that she can call me if she has any questions or concerns. Her questions are answered. I will see her again in 3-4 months for a phone visit, but do not anticipate offering radiation unless she has oligoresidual disease. EDUCATION: Ready to learn, no apparent learning barriers were identified; learning preferences include listening. Explained diagnosis and treatment plan; patient expressed understanding of the content. I personally spent 15 minutes in care of the patient today. Time includes both non face to face andface to face patient care. Signed by: Hanh Marquez M.D. 09/03/2024 Radiation Oncology [facility] Radiation Therapy Center [address] [place] [id number] E documented in this encounter Plan of Treatment Upcoming Encounters Date Type Department Care Team (Late st Contact Info) Description 12/04/2024 3:30 PM NURSE Appointment Department of Radiation Oncology in [address] [address] Hanh Marquez M.D. [address] [place] [address] Scheduled Referrals Name Type Priority Associated Diagnoses Order Schedule Radiation Oncology office visit (clinic) Outpatient Referral Routine Once for 1 Occurrences starting 09/03/2024 until 09/03/2024 Radiation Oncology office visit (clinic) Outpatient Referral Routine Expected: (Approximate), Expires: 09/03/2025 documented as of this encounter Visit Diagnoses Diagnosis 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)- Primary documented in this encounter Care Teams Corn Breeder Relationship Specialty Start Date End Date Elsewhere, Pcp PCP - General Family Medicine 05/07/23 documented as of this encounter
[2024-10-16 10:28] LABS: Basophils Absolute Auto 0.02 K/uL (0.00-0.30); Basophils Percent Auto 0.2 % (0.0-3.0); Eosinophils Absolute Auto 0.02 K/uL (0.00-0.50); Eosinophils Percent Auto 0.2 % (0.0-7.0); Hematocrit 37.6 % (33.0-51.0); Hemoglobin* 12.1 gm/dL (12.0-16.0); Immature Granulocytes Abs Auto 0.94 K/uL (0.00-0.30); Immature Granulocytes Pct Auto 11.4 %; Lymphocytes Percent Auto 5.8 % (20-44); Mean Corpuscular HGB Conc 32 gm/dL (32-36); Mean Corpuscular Hemoglobin 28 pg (26-34); Mean Corpuscular Volume 87 fL (80-100); Neutrophils Absolute Auto 5.45 K/uL (1.7-7.0); Neutrophils Percent Auto 66.4 % (42.0-72.0); Platelet Count* 100 K/uL (140-440); RDW Coefficient of Variation % 13.7 % (11.5-15.5); Red Blood Count 4.31 m/uL (4.00-5.20); White Blood Count* 8.23 K/uL (4.50-11.00)
[2024-10-16 10:43] LABS: Albumin* 3.8 g/dL (3.3-5.0); Chloride* 106 mmol/L (96-114); Potassium* 3.9 mmol/L (3.6-5.1); Sodium* 136 mmol/L (135-149)
[2024-10-16 10:46] LABS: Alanine Aminotransferase* 18 U/L (4-35); Alkaline Phosphatase* 72 U/L (40-150); Anion Gap 9 mEq/L (7-15); Aspartate Amino Transferase* 28 U/L (12-35); Bilirubin Total* 0.5 mg/dL (0.1-1.5); Blood Urea Nitrogen* 7 mg/dL (7-30); Carbon Dioxide* 21 mmol/L (20-32); Creatinine* 0.5 mg/dL (0.5-1.5); Estimated Glomerular Filt Rate 98 ml/min; Total Protein* 6.3 g/dL (6.0-8.3)
[2024-10-16 10:47] LABS: Calcium* 8.9 mg/dL (8.4-10.6); Glucose* 86 mg/dL (60-115)
[2024-10-16 10:49] LABS: C Reactive Protein* 5.9 mg/dL (0.5-1.0)
[2024-10-16 10:57] LABS: Slide Review Reflex Yes
[2024-10-16 10:58] LABS: Slide Review Acceptable Review (Acceptable)
[2024-10-16] MEDS: ACETAMINOPHEN 500 MG TABLET 1000 MG PO (11:22)
--- NOTE | 2024-10-16 11:38 | CRLHL7_ITS ---
For Patients: As a result of the Century Cures Act, medical imaging exams and procedure reports are released immediately into your electronic medical record. You may view this report before your referring provider. If you have questions, please contact your health care provider. INDICATION: Low back pain. Lung cancer. TECHNIQUE: Multiplanar multisequence MR imaging of the lumbar spine prior to and following intravenous contrast. COMPARISON: CT lumbar spine 10/16/2024. FINDINGS: Kxrv-ho-oooeytsj leftward lumbar curvature. Mild straightening of the lumbar lordosis. Vertebral body heights maintained. No acute fracture. Enhancing 2 cm T1 hypointense lesion within the medial right iliac bone, concerning for an osseous metastasis (series 8, image 41. Normal conus terminates at L1. T12-L1 and L1-2: Disc degeneration. No spinal canal or neural foraminal narrowing. L2-3: Trace retrolisthesis. Moderate disc degeneration. Posterior disc bulge. Shallow superiorly migrated left central disc extrusion. No spinal canal or neural foraminal narrowing. L3-4: Trace retrolisthesis. Moderate disc degeneration. Posterior disc bulge. Mild facet arthropathy. No spinal canal or neural foraminal narrowing. L4-5: Moderate disc degeneration. Posterior disc bulge. Mild facet arthropathy. Mild spinal canal narrowing. Mild to moderate narrowing of the lateral recesses. No neural foraminal narrowing. L5-S1: Trace retrolisthesis. Disc bulging and endplate spondylotic ridging eccentric to the left. Advanced disc degeneration and disc height loss. Minimal endplate edema. Mild facet arthropathy. No spinal canal narrowing. Mild left without right neural foraminal narrowing. Sacroiliac joint degenerative changes. Multiple renal cysts. IMPRESSION: 1. Enhancing 2 cm T1 hypointense lesion within the medial right iliac bone, concerning for an osseous metastasis. 2. Multilevel lumbar spondylosis without spinal canal or neural foraminal stenosis. 3. At L4-5, xlrd-hw-dpvdrkhf narrowing of the lateral recesses. Dictated by Tobin Whitman MD @ 10/16/2024 2:38:01 PM (Electronically Signed)
[2024-10-16] MEDS: diazePAM 5 MG TABLET PO (12:03)
[2024-10-16 12:40] VITALS: BP 132/85; PULSE 65; RESP 18; O2SAT 94
[2024-10-16] MEDS: ONDANSETRON 2 MG/ML inj 4 MG IVP (14:27)
== END 2024-10-16 15:06 | disposition home or self-care (01) ==
PROVIDERS: Emergency Provider Family Medicine; PCP Family Medicine
DX: M54.50 Low back pain, unspecified (principal); C34.92 Malignant neoplasm of unspecified part of left bronchus or lung
CPT/HCPCS: 36415; 72131; 72158; 80053; 83605; 85025; 86140; 93005; 94761; 96374; 99284; 99285; A9270; A9575; J2405

== ENCOUNTER 2025-03-08 12:00 | Emergency (ER) | payer MEDICARE, OTHER, SELFPAY ==
--- OUTSIDE RECORDS SUMMARY | 2025-03-08 12:02 | XMS_ITS | Encounter Summary ---
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 Gender Identity Not on file Sexual Orientation [...] Out C-difficile 09/27/2021 09/27/2021 021 2:32 PM TRAIN CREW MEMBER Rule Out C-difficile 01/14/2022 01/14/2022 022 6:15 PM CDT documented as of this encounter Care Teams Airport Location Manager Relationship Specialty Start Date End Date [facility] [place] [address] PCP - General 07/05/16 07/02/21 [place] [address] [place] [address] PCP - General 07/03/21 07/27/22 [place] [address] [place] [address] PCP - General 07/28/22 [place] [address] [place] [address] Assigned Gastroenterology Provider 05/07/21 08/30/[address] [place] [address] Registered Dietitian Dietitian, Registered 07/20/21 Jon Eng MD [address] [place] [address] [id number] [place] [address] Assigned Surgical Provider 04/14/22 documented as of this encounter
--- OUTSIDE RECORDS SUMMARY | 2025-03-08 12:02 | XMS_ITS | Encounter Summary ---
Author Organization [place] Address [address] [place] [address] Care Team Providers Care Bellman Name Role Phone [facility], [facility] Primary Care Provider + Hakan Barton MD Unavailable Venus Barnes MD Primary Care Provider Unavaila Shar Mcneal RD Unavailable [phone] Jon Eng MD Unavailable [phone] Willam Jaramillo MD Primary Care Provider Encounter Details Date Type Department Care Team (Late st Contact Info) Description 05/22/2021 [facility] Only [facility] [address] [place] [address] Marleny Keller Diarrhea, unspecified type Social History Tobacco Use Types Packs/Day Years Used Date Smoking Tobacco: Former Cigarettes Comments:quit 2012 Alcohol Use Standard Drinks/Week Comments Yes 0 (1 standard drink = 0.6 oz pur e alcohol) occas Comments No Sex and Gender Information Value Date Recorded Sex Assigned at Not on file Legal Sex Female 3:09 AM ANIMAL CARE ATTENDANT Gender Identity Not on file Sexual [...] LABORATORY - 05/22/2021 9:15 PM CDT The [employer]ep[employer] Xpert C. difficile Assay, performed on the [employer]inicareX[employer] Ethanol Instrument Systems, is a qualitative in vitro [...] ORDERAB LES Final Result [facility] Infectious Diseases Diagnostic Lab (IDDL) [address] [facility], [address] [place] [address], [facility] [phone] documented in this encounter Visit Diagnoses Diagnosis [...] Out C-difficile 09/27/2021 09/27/2021 021 2:32 PM ANIMAL CARE ATTENDANT Rule Out C-difficile 01/14/2022 01/14/2022 022 6:15 PM CDT documented as of this encounter Care Teams Bellman Relationship Specialty Start Date End Date [facility], [facility] [place] [address] PCP - General 07/05/16 07/02/21 [place] [address] [address], [place] [address] PCP - General 07/03/21 07/27/22 [place] [address] [place] [address] PCP - General 07/28/22 [place] [address] [place] [address] Assigned Gastroenterology Provider 05/07/21 08/30/[address] [place] [address] Registered Dietitian Dietitian, Registered 07/20/21 Jon Eng MD [address] [place] [address] [id number] [place] [address] Assigned Surgical Provider 04/14/22 documented as of this encounter
--- OUTSIDE RECORDS SUMMARY | 2025-03-08 12:02 | XMS_ITS | Encounter Summary ---
Author Organization [place] Address [address] [place] [address] Care Team Providers Care Director Business Intelligence Name Role Phone [facility], [facility] Primary Care Provider + Hakan Barton MD Unavailable Venus Barnes MD Primary Care Provider Unavaila Shar Mcneal RD Unavailable [phone] Jon Eng MD Unavailable [phone] Willam Jaramillo MD Primary Care Provider Encounter Details Date Type Department Care Team (Late st Contact Info) Description 06/20/2021 [facility] Only [facility] [address] [place] [address] HaseebriAlexandria herrera Diarrhea, unspecified type Social History Tobacco Use Types Packs/Day Years Used Date Smoking Tobacco: Former Cigarettes Comments:quit 2013 Alcohol Use Standard Drinks/Week Comments Yes 0 (1 standard drink = 0.6 oz pur e alcohol) occas Comments No Sex and Gender Information Value Date Recorded Sex Assigned at Not on file Legal Sex Female 3:09 AM PUBLICIST Gender Identity Not on file Sexual Orientation [...] - 49.9 mg/kg 06/21/2021 2:08 PM CDT [facility] Comment:Normal Stool RECTAL CONTENTS / Unknown Non-blood Collection / Unknown 06/20/2021 11:00 AM CDT 06/20/2021 11:41 AM CDT us Hakan Barton MD LAB - STOOLS ORDERABLES Fin al Result [facility] SPECIALTY [facility] Specialty Core Lab [address] [facility], [address] [place] [address], [facility] [phone] * (ABNORMAL) Clostridium difficile Toxin B PCR [...] LABORATORY - 06/20/2021 3:31 PM CDT [employer] Xpert C. difficile Assay, performed on the Cepheid GeneXpert Instrument Systems, is a qualitative in [...] ORDERAB LES Final Result [facility] Infectious Diseases Diagnostic Lab (IDDL) [address] [facility], [address] [place] [address], [facility] [phone] documented in this encounter Visit Diagnoses Diagnosis Diarrhea, unspecified type documented in this encounter Additional Health Concerns Infection Onset Date Last Indicated Resolved Time C-difficile 04/26/2021 07/18/2021 08/17/2021 11:3 9 PM CDT Rule Out C-difficile 06/20/2021 06/20/2021 021 3:31 PM CDT Rule Out C-difficile 07/18/2021 07/18/2021 021 9:41 PM CDT Rule Out C-difficile 09/27/2021 09/27/2021 021 2:32 PM PUBLICIST Rule Out C-difficile 01/14/2022 01/14/2022 022 6:15 PM CDT documented as of this encounter Care Teams Director Business Intelligence Relationship Specialty Start Date End Date [facility] [address] [place] [address] PCP - General 07/05/16 07/02/21 [place] [address] [place] [address] PCP - General 07/03/21 07/27/22 [place] [address] PCP - General 07/28/22 [place] [address] [place] [address] Assigned Gastroenterology Provider 05/07/21 08/30/23 Shar Bartlett, RD [address] [place], [place] [address] Registered Dietitian Dietitian, Registered 07/20/21 Jon Eng MD [address] [facility] [id number] [place], [place] [address] Assigned Surgical Provider 04/14/22 documented as of this encounter
--- OUTSIDE RECORDS SUMMARY | 2025-03-08 12:02 | XMS_ITS | Encounter Summary ---
Author Organization [place] Address [address] [place] [address] Care Team Providers Care Liquid Sugar Melter Name Role Phone Hakan Barton MD Unavailable Venus Barnes MD Primary Care Provider Unavaila Shar Mcneal RD Unavailable [phone] Jon Eng MD Unavailable [phone] Willam Jaramillo MD Primary Care Provider Encounter Details Date Type Department Care Team (Late st Contact Info) Description 07/18/2021 [facility] [address] [place] [address] Jessica Davis RN Diarrhea, unspecified type Social History Tobacco Use Types Packs/Day Years Used Date Smoking Tobacco: Former Cigarettes Smokeless Tobacco: Never Comments:quit 2013 Alcohol Use Standard Drinks/Week Comments Yes 0 (1 standard drink = 0.6 oz pur e alcohol) occas Comments No Sex and Gender Information Value Date Recorded Sex Assigned at Not on file Legal Sex Female 3:09 AM MOTOR AND GENERATOR ASSEMBLER Gender Identity Not on file Sexual [...] - 49.9 mg/kg 07/19/2021 1:06 PM CDT [facility] Comment:Normal Stool RECTAL CONTENTS / Unknown Non-blood Collection / Unknown 07/18/2021 4:29 PM CDT 07/18/2021 4:29 PM CDT us Hakan Barton MD LAB - STOOLS ORDERABLES Fin al Result [facility] SPECIAL[facility] Specialty Core Lab [address] [facility], [address] [place] [address], [facility] [phone] * (ABNORMAL) Clostridium difficile Toxin B PCR (07/18/2021 4:29 PM CDT) [facility] C Difficile Toxin B by PCR [...] LABORATORY - 07/18/2021 9:41 PM CDT The CepMicrovisk Technologiesid Xpert C. difficile Assay, performed on the [employer] Instrument Systems, is a qualitative in vitro [...] LES Final Result [facility] Infectious Diseases Diagnostic Lab (IDDL) [address] [facility], [address] [place] [address], [facility] [phone] documented in this encounter Visit Diagnoses Diagnosis Diarrhea, unspecified type documented in this encounter Additional Health Concerns Infection Onset Date Last Indicated Resolved Time C-difficile 04/26/2021 07/18/2021 08/17/2021 11:3 9 PM CDT Rule Out C-difficile 07/18/2021 07/18/2021 021 9:41 PM CDT Rule Out C-difficile 09/27/2021 09/27/2021 021 2:32 PM MOTOR AND GENERATOR ASSEMBLER Rule Out C-difficile 01/14/2022 01/14/2022 022 6:15 PM CDT documented as of this encounter Care Teams Liquid Sugar Melter Relationship Specialty [place] [address] [place] [address] PCP - General 07/03/21 07/27/22 [place] [address] [place] [address] PCP - General 07/28/22 [place] [address] [place] [address] Assigned Gastroenterology Provider 05/07/21 08/30/[address] [place] [address] Registered Dietitian Dietitian, Registered 07/20/21 Jon Eng MD [address] [facility] [id number] [place] [address] Assigned Surgical Provider 04/14/22 documented as of this encounter
--- OUTSIDE RECORDS SUMMARY | 2025-03-08 12:02 | XMS_ITS | Encounter Summary ---
Author Organization [place] Address [address] [place] [address] Care Team Providers Care Senior Restaurant Manager Name Role Phone Hakan Barton MD Unavailable Venus Barnes MD Primary Care Provider Unavaila Shar Mcneal RD Unavailable [phone] Jon Eng MD Unavailable [phone] Willam Jaramillo MD Primary Care Provider Encounter Details Date Type Department Care Team (Late st Contact Info) Description 01/14/2022 [facility] [address] [place] [address] Gerald Hadley Diarrhea, unspecified type Social History [...] on file Legal Sex Female 3:09 AM CARE INFORMATION ASSOCIATE Gender Identity Not on file Sexual [...] 11:45 AM CDT 01/14/2022 11:48 AM CDT us Hakan Barton MD LAB - STOOLS ORDERABLES Fin al Result [facility] SPECIALTY CORE/PROT/ENDO [facility] Specialty Core/Prot/Endo [address] [facility], [address] [phone] * Clostridium difficile toxin B (01/14/2022 11:30 AM CDT) Pathologist [facility] C Difficile Toxin B by PCR Negative [...] LABORATORY - 01/14/2022 6:15 PM CDT The Cep[employer]ial[employer] Xpert C. difficile Assay, performed on the [employer] GeneXpert Instrument Systems, is a qualitative in [...] ORDERAB LES Final Result [facility] Inf. Diseases Diag. Lab [address] [facility], [address] [place] [address], [facility] [phone] * Enteric Bacteria and Virus Panel by JAQUI Stool (01/14/2022 11:30 AM CDT) Pathologist [facility] Campylobacter group Not Detected Not Detected 01/14/2022 [...] performed by multiplexed, qualitative PCR using the Apl[employer] Enteric Pathogens Nucleic Acid Test. Results should [...] ORDERAB LES Final Result [facility] Inf. Diseases Diag. Lab [address] [facility], [address] [place] [address], [facility] [phone] documented in this encounter Visit Diagnoses Diagnosis Diarrhea, unspecified type documented in this encounter Additional Health Concerns Infection Onset Date Last Indicated Resolved Time Rule Out C-difficile 01/14/2022 01/14/2022 022 6:15 PM CDT documented as of this encounter Care Teams Senior Restaurant Manager Relationship Specialty [place] [address] [place] [address] PCP - General 07/03/21 07/27/22 [place] [address] [place] [address] PCP - General 07/28/22 [place] [address] [place] [address] Assigned Gastroenterology Provider 05/07/21 08/30/23 Shar Bartlett, TAYLA [address] [place] [address] Registered Dietitian Dietitian, Registered 07/20/21 Jon Eng MD [address] [place] [address] [id number] [place] [address] Assigned Surgical Provider 04/14/22 documented as of this encounter
--- OUTSIDE RECORDS SUMMARY | 2025-03-08 12:02 | XMS_ITS | Encounter Summary ---
Author Organization [facility] Address [address] [place] [address] Care Team Providers Care Tempering Kiln Tender Name Role Phone Hakan Barton MD Unavailable [phone] Venus Barnes MD Primary Care Provider Unavaila Shar Mcneal RD Unavailable [phone] Jon Eng MD Unavailable [phone] Willam Jaramillo MD Primary Care Provider Encounter Details Date Type Department Care Team (Late st Contact Info) Description 09/27/2021 [facility] Only [facility] [address] [place] [id number] [place] Diarrhea, unspecified type Social History Tobacco Use Types Packs/Day Years Used Date Smoking Tobacco: Former Cigarettes Smokeless Tobacco: Never Comments:quit 2013 Alcohol Use Standard Drinks/Week Comments Yes 0 (1 standard drink = 0.6 oz pur e alcohol) occas Comments No Sex and Gender Information Value Date Recorded Sex Assigned at Not on file Legal Sex Female 3:09 AM MORTGAGE LOAN COORDINATOR Gender Identity Not on file Sexual Orientation Not on file COVID-19 Exposure Response Date Recorded In the last month, have you been in contact with someone who was confirmed or suspected to have Coronavirus / COVID-19? No / Unsure 09/28/2021 7:30 AM MORTGAGE LOAN COORDINATOR documented as of this encounter Plan of Treatment Not on file documented as of this encounter Procedures Procedure Name Priority Date/Time Associated Diagnosis Comments ENTERIC BACTERIA AND VIRUS PANEL BY PCR Routine 09/27/2021 5:45 PM MORTGAGE LOAN COORDINATOR Diarrhea, unspecified type CLOSTRIDIUM DIFFICILE TOXIN B Routine 09/27/2021 5:45 PM MORTGAGE LOAN COORDINATOR Diarrhea, unspecified type CALPROTECTIN FECES Routine 09/27/2021 5: 45 PM MORTGAGE LOAN COORDINATOR Diarrhea, unspecified type ROUTINE PARASITOLOGY EXAM Routine 09/27/2021 5:45 PM MORTGAGE LOAN COORDINATOR Diarrhea, unspecified type documented in this encounter Results * Ova and Parasite Exam Routine (09/27/2021 5:45 PM MORTGAGE LOAN COORDINATOR) OVA AND PARASITE EXAM Negative Negative JACQUE 09/29/2021 2:20 PM MORTGAGE LOAN COORDINATOR [facility] Comment:A single negative sp ecimen does not rule out parasitic infection. Stool RECTAL CONTENTS / Unknown Non-blood Collection / Unknown 09/27/2021 5:45 PM MORTGAGE LOAN COORDINATOR 09/28/2021 7:42 AM MORTGAGE LOAN COORDINATOR Narrative [facility] - 09/29/2021 2:20 PM MORTGAGE LOAN COORDINATOR Cryptosporidium, Cyclospora and Microsporidia are not readily detected by this method. us Hakan Barton MD LAB - MICRO GENERAL ORDERAB LES Final Result [facility] Infectious Diseases Diagnostic Lab (IDDL) [address] [place] [address], [address] [place] [address], [facility] [phone] * Enteric Bacteria and Virus Panel by JAQUI Stool (09/27/2021 5:45 PM MORTGAGE LOAN COORDINATOR) Campylobacter group Not Detected Not Detected 09/28/2021 9:23 PM MORTGAGE LOAN COORDINATOR [facility] Salmonella species Not Detected Not Detected 09/28/2021 9:23 PM MORTGAGE LOAN COORDINATOR [facility] Shigella species Not Detected Not Detected 09/28/2021 9:23 PM MORTGAGE LOAN COORDINATOR [facility] Vibrio group Not Detected Not Detected 09/28/2021 9:23 PM MORTGAGE LOAN COORDINATOR [facility] Rotavirus Not Detected Not Detected 09/28/2021 9:23 PM MORTGAGE LOAN COORDINATOR [facility] Shiga toxin 1 gene Not Detected Not Detected 09/28/2021 9:23 PM MORTGAGE LOAN COORDINATOR [facility] Shiga toxin 2 gene Not Detected Not Detected 09/28/2021 9:23 PM MORTGAGE LOAN COORDINATOR [facility] Norovirus I and II Not Detected Not Detected 09/28/2021 9:23 PM MORTGAGE LOAN COORDINATOR [facility] Yersinia enterocolitica Not Detected Not Detected 09/28/2021 9:23 PM MORTGAGE LOAN COORDINATOR [facility] Stool RECTAL CONTENTS / Unknown Non-blood Collection / Unknown 09/27/2021 5:45 PM MORTGAGE LOAN COORDINATOR 09/28/2021 7:41 AM MORTGAGE LOAN COORDINATOR Narrative [facility] - 09/28/2021 9:23 PM MORTGAGE LOAN COORDINATOR Testing performed by multiplexed, qualitative PCR using the Collect.it Enteric Pathogens Nucleic Acid Test. Results should [...] ORDERAB LES Final Result [facility] Infectious Diseases Diagnostic Lab (IDDL) [address] [facility], [address] [place] [address], [facility] [phone] * (ABNORMAL) Calprotectin Feces (09/27/2021 5:45 PM MORTGAGE LOAN COORDINATOR) Calprotectin Feces 341.0(H) 0.0 - 49.9 mg/kg 09/29/2021 1:35 PM MORTGAGE LOAN COORDINATOR [facility]/PROT/EN DO Comment: Abnormal, repeat as [...] Non-blood Collection / Unknown 09/27/2021 5:45 PM MORTGAGE LOAN COORDINATOR 09/28/2021 7:42 AM MORTGAGE LOAN COORDINATOR us Hakan Barton MD LAB - STOOLS ORDERABLES Fin al Result [facility]/PROT/ENDO [facility] Specialty Core Lab [address] [facility], [address] [place] [address], [facility] [phone] * Clostridium difficile Toxin B PCR (09/27/2021 5:45 PM MORTGAGE LOAN COORDINATOR) C Difficile Toxin B by PCR Negative Negative 09/28/2021 2:32 PM MORTGAGE LOAN COORDINATOR [facility] Comment:A negative result do es not exclude actual disease due to C. difficile and may be due to improper collection, handling and storage of the specimen or the number of organisms in the specimen is below the detection limit of the assay. Stool RECTAL CONTENTS / Unknown Non-blood Collection / Unknown 09/27/2021 5:45 PM MORTGAGE LOAN COORDINATOR 09/28/2021 7:41 AM MORTGAGE LOAN COORDINATOR Narrative [facility] - 09/28/2021 2:32 PM MORTGAGE LOAN COORDINATOR The Cepheid Xpert C. difficile Assay, performed on the [employer] Systems, is a qualitative in vitro [...] ORDERAB LES Final Result [facility] Infectious Diseases Diagnostic Lab (IDDL) [address] [facility], [address] [place] [id number], [facility] [phone] documented in this encounter Visit Diagnoses Diagnosis Diarrhea, unspecified type documented in this encounter Additional Health Concerns Infection Onset Date Last Indicated Resolved Time Rule Out C-difficile 09/27/2021 09/27/2021 021 2:32 PM MORTGAGE LOAN COORDINATOR Rule Out C-difficile 01/14/2022 01/14/2022 022 6:15 PM CDT documented as of this encounter Care Teams Tempering Kiln Tender Relationship Specialty [place] [address] [place] [address] PCP - General 07/03/21 07/27/22 [place] [address] [place] [address] PCP - General 07/28/22 [place] [address] [address], [place] [address] Assigned Gastroenterology Provider 05/07/21 08/30/23 Shar Bartlett, TAYLA [address] [place] [address] Registered Dietitian Dietitian, Registered 07/20/21 Jon Eng MD [address] [place] [address] [id number] [place] [address] Assigned Surgical Provider 04/14/22 documented as of this encounter
--- OUTSIDE RECORDS SUMMARY | 2025-03-08 12:02 | XMS_ITS | Clinical Summary ---
Author Organization [facility] Address [address] [place] [address] Care Team Providers Care Human Resource Analyst Name Role Phone Shar Bartlett [address] RD Unavailable [phone] Willam Jaramillo MD Primary Care Provider [...] 4 times daily 56 capsule 1 07/18/20 Active vancomycin (VANCOCIN) 125 MG capsuleIndications :Recurrent Clostridioides difficile diarrhea Take 1 capsule (125 mg) by mouth daily 90 capsule 1 10/10/20 21 Active vancomycin (VANCOCIN) 125 MG capsuleIndications :Recurrent Clostridioides difficile diarrhea Take 1 capsule (125 mg) by mouth daily. 90 capsule 1 11/23/19 Active Active Problems Problem Noted Date Diagnosed [...] (12/13/2020): Added automatically from request for surgery [id number] Diverticulitis of large intestine with abscess 0 04/21/2020 Diverticulitis of small intestine with abscess 0 04/19/2020 Acute diverticulitis 03/31/2020 Diverticulitis 03/28/2020 Immunizations Immunization Administration Dates Next Due Influenza Vaccine 65+ [...] Getting School Help Needed Not on file 09/22 /2023 Comments No Sex and Gender Information Value Date Recorded Sex Assigned at Not on file Legal Sex Female 3:09 AM ENVIRONMENTAL FIELD PROFESSIONAL Gender Identity Not on file Sexual Orientation [...] DEXA 1950 FLEX SIG 1950 LIPID 1950 SPIROMETRY 1950 sDNA (Cologuard) 1950 FALL RISK ASSESSMENT 2015 FIT 04/07/2022 04/07/2021, 02/2020, 02/23/2020 ZOSTER IMMUNIZATION (3 of 3) 04/29/2023 03/04/2023, 06/11/2011 BMP 05/02/2024 05/02/2023, 01/13, 07/28/2022, Additional history exists COVID-19 Vaccine ( season) 2024 08/28/2023, 08/01/2022, 02/01/2022, Additional history exists PHQ-2 (once per calendar year) 2024 04/10/2022, 02/28/2022, 11/13/2021 RSV VACCINE (1 - 1-dose 75+ series) 2025 MEDICARE ANNUAL WELLNESS VISIT 03/02/2025 03/02/2024, 02/28/2023, 07/26/2021, Additional history exists COLONOSCOPY 12/13/2025 07/03/2021, 06/15, 12/12/2020, Additional history exists COLORECTAL CANCER SCREENING 12/13/2025 ADVANCE CARE PLANNING 01/05/2026 01/05/2021 DIABETES SCREENING 05/02/2026 05/02/2023, 0 02/07/2023, 02/07/2023, Additional history exists DTAP/TDAP/TD IMMUNIZATION (2 - Td or Tdap) 06/19/2026 06/19/2016 Pneumococcal Vaccine: 50+ Years Completed 06/28/2020, 08/27/2019 HEPATITIS C SCREENING Completed 07/20/2020 LUNG CANCER SCREENING Discontinued 10/10/2023 , 07/25/2023, 03/20/2023, Additional history exists INFLUENZA VACCINE Completed 07/31/2024, , 08/01/2022, Additional history exists HPV IMMUNIZATION Aged Out No longer e ligible based on patient's age to complete this topic MENINGITIS IMMUNIZATION Aged Out No l onger eligible based on patient's age to complete this topic Medical Devices Implanted Type Area Pharmacist In Charge Owner Device Identifier Shelf Expiration Date Model / Serial / Lot Whistle Tip 5fr X 70cm, Right Implanted:Qty: 1 on 12/13/2020 by Jerrod Jose MD at [facility] Right: Ureter BARD 01/11/2022 [id number] / / [id number] Whistle Tip 5 Fr X 70cm, Left Implanted:Qty: 1 on 12/13/2020 by Jerrod Jose MD at [facility] Left: Ureter BARD 01/11/2022 [id number] / / [id number] Explanted Type Area Pharmacist In Charge Owner Device Identifier Shelf Expiration Date Model / Serial / Lot Bard Whistle Tip 5fr. X 70 Cm Implanted:Qty: 1 Explanted:Qty: 1 on 04/21/2020 at [facility] Right: Ureter BARD 08/10/2020 [id number] / / [id number] Bard Whistle Tip 5 Fr. X 70 Cm Implanted:Qty: 1 Explanted:Qty: 1 on 04/21/2020 at [facility] Left: Ureter BARD 01/11/2022 [id number] / / [id number] Procedures Procedure Name Priority Date/Time Associated Diagnosis [...] BLOOD ORDERABLES Fin al Result LABORATORY [facility] Acute Care Lab [address], [address] [place] [address], [facility] [phone] * COLONOSCOPY (07/03/2021 1:54 PM CDT) COLONOSCOPY [address] [place] [address] [phone] Endoscopy Department ___ Patient Name: Racheal Regalado [...] Negative NEG^Negati ve 04/07/2021 1:57 PM CDT [facility] Stool 04/07/2021 1:34 PM CDT 04/07/2021 1:50 PM CDT us Hina Leggett DO LAB - STOOLS ORDERABLES Ed ited Result - Final [facility] [address] [place], [place] [address] [phone] from Last 3 Months or Most Recently Relevant to Health Maintenance Insurance [place]ARE [place] SU[place]AN Advance Directives For more information, please contact: [phone] * Full Code (Latest Code Status on [...] 2:40 PM 12/29/2020 8:13 PM All basic a nd advanced life-sustaining interventions are performed as appropriate [...] patie nt/ legal decision maker Care Teams Human Resource Analyst Relationship Specialty [place] [address] [place] [address] PCP - General 07/28/[address] [place] [address] Registered Dietitian Dietitian, Registered 07/20/21
--- OUTSIDE RECORDS SUMMARY | 2025-03-08 12:02 | XMS_ITS | Clinical Summary ---
Author Organization [facility] Address [address] [place] [address] Phone Care Team Providers Care Manager Math Name Role Phone Tamiko Ruiz MD Primary Care Provider Allergies Active Allergy [...] Hydrocodone-Acetaminophen 03/09/2021 Increase HR, Increase BP Medications budesonide-form oterol (SYMBICORT) 160-4.5 MCG/ACT inhaler Inhale 2 puffs [...] (03/22/2021): Added automatically from request for surgery [id number] Diverticulitis of large intestine 04/21/2020 Anxiety 12/09/2019 [...] Smoking Tobacco: Former Cigarettes 2.5 40 1 971 - 2010 Smokeless Tobacco: Former Comments:Used vap [...] drinks on one occasion? Not asked 03/16/2021 Comments Unknown Sex and Gender Information Value Date Recorded Sex Assigned at Not on file Legal Sex Female 10:04 AM MDT Gender Identity Not on file Sexual Orientation Not on file Last Filed Vital Signs Vital Sign Reading Time Taken Comments Blood Pressure 180/94 03/16/2021 10:54 AM CDT Pulse 83 03/16/2021 10:54 AM CDT Temperature 36.6 C (97.8 F) 03/16/2021 10:54 AM CDT Respiratory Rate - - Oxygen [...] Medium Risk (1 of 4 - PCV) 02/03/2000 Influenza Vaccine (Season Ended) 2025 08/02/20 15, 10/29/2012 Insurance PM INTERFACED INSURANCE PM INTERFACED INSURANCE PM INTERFACED INSURANCE Care Teams Manager Math Relationship Specialty Start Date End Date Tamiko Ruiz MD [facility]ON [facility] RECTAL [facility]G [address] [facility] [address] [place] [address] PCP - General 03/16/21
--- OUTSIDE RECORDS SUMMARY | 2025-03-08 12:03 | XMS_ITS | Encounter Summary ---
Author Organization [facility] Address [address] [place] [address] Care Team Providers Care Pool Table Mechanic Name Role Phone [facility], [facility] Primary Care Provider + Hakan Barton MD Unavailable [phone] Venus Barnes MD Primary Care Provider Unavaila Shar Mcneal RD Unavailable [phone] Jon Eng MD Unavailable [phone] Willam Jaramillo MD Primary Care Provider Encounter [...] on file Legal Sex Female 3:09 AM RING ATTACHER Gender Identity Not on file Sexual Orientation [...] Out C-difficile 09/27/2021 09/27/2021 021 2:32 PM RING ATTACHER Rule Out C-difficile 01/14/2022 01/14/2022 022 6:15 PM CDT documented as of this encounter Care Teams Pool Table Mechanic Relationship Specialty Start Date End Date [facility] [address] [place] [id number] PCP - General 07/05/16 07/02/21 [place] [address] [place], [place] [address] PCP - General 07/03/21 07/27/22 [place] [address] [place] [address] PCP - General 07/28/22 [place] [address] [place], [place] [address] Assigned Gastroenterology Provider 05/07/21 08/30/[address] [place] [address] Registered Dietitian Dietitian, Registered 07/20/21 Jon Eng MD [address] [place] [address] [id number] [place] [address] Assigned Surgical Provider 04/14/22 documented as of this encounter
--- OUTSIDE RECORDS SUMMARY | 2025-03-08 12:03 | XMS_ITS ---
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 Past Treatment and Therapy Plans Infusion Therapy 1 Plan Name Start Date Discontinue Date Treatment Medications Discontinue Reason Plan Provider Hydration 07/02/2023 06/23/2024 No medications scheduled. Therapy Complete Hanh Marquez M.D. Past Radiation Episodes * IMRT: Left LungOverview* First Treatment Date Last Treatment Date Treatment Site Technique Goal Episode Provider 05/15/2023 07/03/2023 Left Lung IMRT Curative * Linked Problems Malignant Neoplasm Of Lung L ower Lobe Or Bronchus Left Treatment Courses* Course 1xLung 05/15/2023 - 07/03/2023 Treatment Period Fraction Dose Fractions Total Dose Plans Planned [id number] 05/15/2023 - 07/03/2023 200 cGy 30 / 30 6 ,000 cGy Reference Points Delivered [id number] 05/15/2023 - 07/03/2023 6,000 cGy
--- OUTSIDE RECORDS SUMMARY | 2025-03-08 12:03 | XMS_ITS | Clinical Summary ---
Author Organization [facility] Address [address] [place] [address] Care Team Providers Care Manager Medicare Name Role Phone Elsewhere, Pcp Primary Care Provider Unavailabl e Source Comments Patient records contain information from all sites at [facility]. For routine questions regarding patient records, call [phone] during business hours, M-F 8:00 AM - 5:00 PM Central Time. Record requests for emergency care only can be directed to [phone] at any time.[facility] Allergies Active Allergy Reactions Criticality Noted Date Comments Acetaminophen Hypertension High 10/15/2022 Amphetamine Other (see comments) 12/11/2012 Benzedrine- Hypertension, nausea Ampicillin-Sulbactam Anaphylaxis High 09/26/2015 Cefuroxime Anaphylaxis,Hyperten bena,Shortness of breath (Reselect Reaction),Palpitatio ns High 12/09/2012 [...] 04/12/2023:Stage IIIB(cT1b, cN3, cM0) - Unsigned Immunizations Immunization Administration Dates Next Due HZV (ZOSTAVAX) 06/11/2011 [...] on file Legal Sex Female 5:18 PM GAME PROTECTOR Gender Identity Not on file Sexual Orientation Not on file Last Filed Vital Signs Vital Sign Reading Time Taken Comments Blood Pressure 153/69 08/28/2023 11:29 AM GAME PROTECTOR Pulse 66 08/28/2023 11:29 AM GAME PROTECTOR Temperature 36.5 C (97.7 F) 08/28/2023 11:29 AM GAME PROTECTOR Respiratory Rate - - Oxygen Saturation - - Inhaled Oxygen Concentration - - Weight 44.7 kg (98 lb 8.7 oz) 08/28/2023 11:29 A M GAME PROTECTOR Height 166 cm (5' 5.35) 12/09/2012 8:39 AM GAME PROTECTOR Body Mass Index - - Plan of Treatment Health Maintenance Due Date Last Done Comments Bone Density Scan (Osteoporosis Screen) 1950 CT Colonography 1950 Cologuard 1950 FIT 1950 Hepatitis C Screening 1950 Mammogram 09/19/2013 09/19/2012 (Perf ormed elsewhere) Zoster Vaccines (2 of 2) 04/29/2023 03/04/2023, 05/15 COVID-19 Vaccine ( season) 2024 08/28/2023, 08/01/2022, 02/01/2022, Additional history exists Creatinine Level (Kidney Function Test) 07/22/2024 07/22/2023, 05/02/2023, 02/07/2023, Additional history exists Potassium Level 07/22/2024 07/22/2023, 072 , 04/09/2023, Additional history exists Sodium Level 07/22/2024 07/22/2023, 2 , 02/07/2023, Additional history exists Depression Screening (Annual PHQ-2) 10/14/2024 Fall Risk Screen (Annual) 10/14/2024 DTaP,Tdap,and Td Vaccines (2 - Td or Tdap) 06/19/2026 06/19/2016 Fasting Glucose for Diabetes Screening 07/22/2026 07/22/2023, 05/02/2023, 02/07/2023, Additional history exists Colonoscopy 07/03/2031 07/03/2021, 03/0 10/2020, 01/23/2013, Additional history exists Colorectal Cancer Screening 07/03/2031 Pneumococcal vaccine (50+ years) Completed 06/28/2020, 08/27/2019 RSV vaccine - (32-36 weeks) or 60+ years Completed 07/24/2024 Influenza Vaccine Completed 07/31/2024, , 08/01/2022, Additional history exists HPV Vaccines Aged Out No longer eligi ble based on patient's age to complete this topic IPV Vaccines Aged Out No longer eligi ble based on patient's age to complete this topic Medical Devices Implanted Type Area Relationship Consultant Device Identifier Shelf Expiration Date Model / Serial / Lot Hardware E.G. Pins/Screws/R ods Hardware e.g. pins/screws/ rods Duodenum Description:[place] Procedures Procedure Name Priority Date/Time Associated Diagnosis Comments OUTSIDE NM PET Routine 12/29/2024 10:35 AM CDT COLONOSCOPY Routine 01/23/2013 1:25 PM CDT from Last 3 Months or Most Recently Relevant to Health Maintenance Results * PET CT Body Skull Base to Mid Thigh-Outside NM Pet (12/29/2024 10:35 AM CDT) Narrative [facility] - 12/31/2024 1:54 PM CDT This order has been created and auto-finalized to support the import of outside images. If available, original interpretation can be found on the Media Tab in Chart Review, in Document Viewer, as an image in InfinityView or as an Addendum. If a re-interpretation or overread is required please follow defined workflow. us Provider Not In System IMG NM PROCEDURES Final R esult [facility] NA * Colonoscopy (01/23/2013 1:25 PM CDT) 01/23/2013 1:25 PM CDT Siva Philip M.D. GI PROCEDURE ORDERABLES Fin al Result [facility] [address] [place] [address] from Last 3 Months or Most Recently Relevant to Health Maintenance Insurance MEDICARE [facility] Care Teams Manager Medicare Relationship Specialty Start Date End Date Elsewhere, Pcp PCP - General Family Medicine 05/07/23
--- OUTSIDE RECORDS SUMMARY | 2025-03-08 12:03 | XMS_ITS | Clinical Summary ---
Author Organization [facility] Address [address] [place] [address] Care Team Providers Care Bench Patternmaker Metal Name Role Phone Tamiko Ruiz MD Unavailable [phone] Willam Jaramillo MD Primary Care Provider Mary Kinney RN, BSN Unavailable Unavailab Tobin Acevedo MD Unavailable [phone] Allergies Active Allergy Reactions Criticality Noted Date [...] 4 hours if needed. 1 Inhaler 6 019 Active NebulizerIndica tions:COPD exacerbation (HC) Nebulizer, disposable neb kit x 4, reuseable neb kit x 1, mask x 1, filters x 1. Frequency of use: daily; Medication: duoneb Length of need:lifetime 1 Device 020 Active albuterol (PROVENTIL) 0.083 % neb solutionIndicat ions:COPD exacerbation (HC) Inhale 3 mL via a nebulizer every 4 hours if needed (sob / wheezing). 1 box 1 020 Active albuterol-iprat ropium (DUONEB) (2.5-0.5 mg) in 3 mL NEBULIZATION solutionIndicat ions:COPD with chronic bronchitis (HC) INHALE 3 ML VIA A NEBULIZER 4 TIMES DAILY. 1 box 2 020 Active vancomycin (FIRVANQ) 25 mg/mL solr Take 125 mg by mouth. 021 Active rosuvastatin (CRESTOR) 20 mg tabletIndicatio ns:Coronary artery disease involving solomon coronary artery of solomon heart without angina pectoris Take 1 Tablet (20 mg) by mouth at bedtime. 90 Tablet 3 024 Active amLODIPine (NORVASC) 5 mg tabletIndicatio ns:HTN (hypertension) Take 1 Tablet (5 mg) by mouth once daily. 90 Tablet 3 024 Active metoprolol succinate SR (TOPROL XL) 200 mg Sustained-Relea se tabletIndicatio ns:Paroxysmal atrial fibrillation (HC) Take 1 Tablet (200 mg) by mouth once daily. DUE FOR ANNUAL FOLLOW UP TO RECEIVE REFILLS: [phone] 90 Tablet 3 024 Active oxygen-air delivery systems (HOME OXYGEN)Indicati ons:Nocturnal hypoxia,COPD mixed type (HC),Adenocarci noma of left lung (HC),Small cell carcinoma of left lung, unspecified part of lung (HC) Oxygen for home use. Liters per minute: 2 per nasal cannula. Frequency of use: Nocturnal;. Length of need: Lifetime Months. 1 Each 025 Active Additional Information Patient taking differently: Oxygen for home use. Liters per minute: 2 per nasal cannula. Frequency of use: Nocturnal;. Length of need: Lifetime Months.DME is [facility] in [place], Reported on 11/30/2024 apixaban (Eliquis) 5 mg tabletIndicatio ns:Atrial fibrillation, unspecified type (HC) Take 1 Tablet (5 mg) by mouth two times daily. 180 Tablet 025 Active losartan 100 mg tabletIndicatio ns:HTN (hypertension) Take 1 Tablet (100 mg) by mouth once daily. 90 Tablet 3 025 Active budesonide-form oteroL 160-4.5 mcg/actuation (160-4.5 mcg each actuation) inhalerIndicati ons:Chronic obstructive pulmonary disease, unspecified COPD type (HC) INHALE 2 PUFFS BY MOUTH TWICE A DAY 30.6 g 025 Active predniSONE 20 mg tabletIndicatio ns:Adenocarcino ma of lung, unspecified laterality (HC) Take 2 Tablets (40 mg) by mouth once daily with a meal. 10 Tablet 1 025 Active acetylcysteine 200 mg/mL (20%) neb solutionIndicat ions:Shortness of breath,Chronic obstructive pulmonary disease, unspecified COPD type (HC) NHALE 3 MILLILITERS BY NEBULIZATION ROUTE 2 TIMES EVERY DAY 540 mL 025 Active acetylcysteine 200 mg/mL (20%) neb solution INHALE 3 MILLILITERS BY NEBULIZATION ROUTE 2 TIMES EVERY DAY* 024 2024 Discontinued predniSONE (DELTASONE) 20 mg tabletIndicatio ns:Adenocarcino ma of lung, unspecified laterality (HC) Take 2 Tablets (40 mg) by mouth once daily with a meal for 5 days. 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 Follows with Dr. Cortez at [facility]. Had radiation, on immunotherapy for 1 year Nodule of left lung 03/19/2023 Overview (03/19/2023): 1.[address] in [place] 03/10/2023 Supraventricular tachycardia 02/18/2023 Coronary artery disease [...] obstruction 04/07/2021 History of Clostridioides difficile infection 06 / Thrombocythemia 06/25/2020 Overview (06/25/2020): Component Latest Ref [...] Colon cancer screening 02/23/2013 Overview (09/04/2015): 2012 [facility] colonoscopy positive for: diverticula and 10 mm polyp at the hepatic flexure with pathology showing tubular adenoma with low-grade dysplasia, Dr. Kruse at [facility] recommend repeat colonoscopy in 3 years in 2016. Adjustment disorder with depressed mood 08/29/20 12 Overview (10/09/2012): Aug 2012: family stress, started wellbutrin SR. September 2012: dose adjusted to wellbutrin SR 100mg twice daily. Tobacco use disorder 08/29/2012 Overview (07/30/2013): Successfully Quit March 2013. Resolved Problems Problem Noted Date Diagnosed Date Resolved Date Carotid aneurysm, right 06/20/202202/12 Overview (06/20/2022): CT 03/2022- Incidental shallow 2 [...] Chris recommended CT of Colonography. Cedrick at [facility] Nov 2012, see consult note. Counseling for [...] Encounters Date Type Department Care Team Description 03/08/2025 Refill [facility] [address] [place] [address] Willam Jaramillo MD Refill Request (Rosuvastatin) 02/23/2025 Refill [facility] [address] [place] [phone] Lacho Rodriguez MD Refill Request (Acetylcysteine) 02/20/2025 Refill [facility] [address] [place] [phone] Lacho Rodriguez MD Refill Request (Acetylcysteine) 02/17/2025 2:30 PM CDT Ancillary Procedure [facility] [address] [place] [address] 02/17/2025 Telephone [facility] [place] [address] [facility] [address] [place] [phone] Musa Tapia MD Medication Management 02/17/2025 Travel 01/03/2025 Refill [facility] [address] [place] [address] Willam Jaramillo MD Refill Request (Budesonide-formote rol) 12/30/2024 Telephone [facility] [place] [address] [facility] [address] [place] [phone] Musa Tapia MD Concerns (Discuss lung fluid ) 12/27/2024 Refill [facility] [address] [place] [address] Willam Jaramillo MD Refill Request (Losartan) 12/24/2024 Telephone [facility] [address] [place] [address] Musa Tapia MD from Last 3 Months Immunizations Immunization Administration Dates Next Due COVID-19 vaccine (Moderna 50 mcg/0.5mL) 12YO+ BIVALENT PF, MDV 08/01/2022 COVID-19 vaccine (Moderna Tanner karena 50mcg/0.25mL) PF, MDV 02/01/2022 COVID-19 vaccine (Pfizer-Bio NTech 30mcg/0.3mL) PF, MDV 09/04/2021,01/07/2021,12/06/2020 Influenza, High-dose Inactivated 07/31/2024,06/14 Influenza, High-dose Quadriv alent Inactivated 08/12/2023,06/28/2020 Influenza, IIV3 (Age >=3 years) 10/29/2012 Influenza, IIV4 08/02/2015 Influenza, Inactivated AIIV4 (Age 65+ Years) Preserv Free 08/01/2022,07/26/2021 Pneumococcal Poly,23-Valent (Pneumovax) 06/28/20 Pneumococcal conj 13-Valent (Prevnar 13) 019 RSV, Recombinant ADJ Reconst ituted (Arexvy 120MCG/0.5mL) 07/24/2024 Tdap 06/19/2016 Zoster (Shingrix-RZV, recombinant) 03/04/2023 Zoster [...] is your housing situation today? 1 03/02/2024 Utilities Answer Date Recorded Do you have trouble paying f or utilities (for example, heat, electricity, water, phone)? 1 03/02/2024 Comments No Sex and Gender Information Value Date Recorded Sex Assigned at Not on file Legal Sex Female 5:33 AM FOOD SAFETY MANAGER Gender Identity Not on file Sexual Orientation Not on file Obstetrics History Last Filed Vital Signs Vital Sign Reading Time Taken Comments Blood Pressure 132/72 11/30/2024 11:05 AM FOOD SAFETY MANAGER Pulse 92 11/30/2024 11:05 AM FOOD SAFETY MANAGER Temperature 36.5 C (97.7 F) 11/30/2024 11:05 AM FOOD SAFETY MANAGER Respiratory Rate 16 09/29/2024 1:30 PM FOOD SAFETY MANAGER Oxygen Saturation 89% 11/30/2024 11: 05 AM FOOD SAFETY MANAGER Inhaled Oxygen Concentration - - Weight 47.2 kg (104 lb) 11/30/2024 11:0 5 AM FOOD SAFETY MANAGER patient reported Height 163.8 cm (5' 4.5) 11/30/2024 11 :05 AM FOOD SAFETY MANAGER patient reported Body Mass Index 17.58 11/30/2024 11:05 AM FOOD SAFETY MANAGER Plan of Treatment Upcoming Encounters Date Type Department Care Team (Late st Contact Info) Description 04/20/2025 9:20 AM CDT Office Visit [facility] [place] [address] [place] [phone] Musa Tapia MD [address] [place] [phone] Health Maintenance Due Date Last Done Comments DEXA/DXA scan for age 65+ 2015 Zoster (shingles) series for age 50+ (2 of 2) 04/29/2023 03/04/2023, 06/11/2011 COVID-19 vaccine series ( season) 2024 08/28/2023, 08/01/2022, 02/01/2022, Additional history exists Depression screening for age 12+ 03/02/2025 03/02/2024, 02/28/2023, 07/26/2021, Additional history exists Medicare Wellness for age 65+ 03/03/2025 03/02/2024, 02/28/2023, 07/26/2021, Additional history exists BMI (ht and wt on same day) for age 18+ 11/30/2025 11/30/2024, 03/02/2024, 04/09/2023, Additional history exists Low Dose CT (for lung CA) age 50-80 12/07/2025 12/07/2024, 09/29/2024, 10/10/2023, Additional history exists Colonoscopy through age 75 12/12/202512/12, 12/11/2019, 11/06/2012 Tetanus booster 06/19/2026 06/19/2016 Lipids for age 45-75 03/02/2029 03/02/2024, 07/16/2022, 04/04/2021, Additional history exists Tdap Completed 06/19/2016 Pneumococcal series for age 50+ Completed 06/28/2020, 08/27/2019 Hepatitis C screening for age 18-79 Completed 07/20/2020 RSV vaccine for adults or Completed 07/24/2024 Influenza Vaccine Completed 07/31/2024, , 07/26/2021, Additional history exists Hepatitis B series for 19+ Aged Out N o longer eligible based on patient's age to complete this topic Procedures Procedure Name Priority Date/Time Associated Diagnosis Comments XR CHEST 2 VIEWS PA AND LATERAL STAT 02/17/2025 2:26 PM CDT Malignant neoplasm of lower lobe bronchus, left (HC) Dyspnea, paroxysmal nocturnal CT CHEST WO Routine 12/07/2024 10:05 AM FOOD SAFETY MANAGER Adenocarcinoma of lung, unspecified laterality (HC) LIPID PANEL W REFLEX MEASURED LDL Routine 03/02/2024 10:13 AM CDT Lipid screening SCAN-COLONOSCOPY 12/12/2020 12:0 0 AM FOOD SAFETY MANAGER ANTI HCV Routine 07/20/2020 11:00 AM CDT Need for hepatitis C screening test from Last 3 Months or Most Recently Relevant to Health Maintenance Results * XR CHEST 2 VIEWS PA AND LATERAL (02/17/2025 2:26 PM CDT) Anatomical Region Laterality Modality CHEST, THORAX, Lung, HEART Compu shantelle Radiography 02/17/2025 2:40 PM CDT Narrative 02/17/2025 2:40 PM CDT For Patients: As a result of the Cures Act, medical imaging exams and procedure reports are released immediately into your electronic medical record. You may view this report before your referring provider. If you have questions, please contact your health care provider. Indication: Dyspnea and malignant neoplasm of the left lower lobe bronchus Technique: Chest 2 views Comparison: Chest x-ray 09/29/2024 Findings/Impression: Cardiovascular and mediastinum: Normal heart size with atherosclerotic calcification right-sided Port-A-Cath. Lungs and pleural spaces: Hyperinflation with flattening of the hemidiaphragms consistent with emphysema. No pneumothorax or pleural effusion. Bandlike opacity within the left lower lobe, likely parenchymal scarring. Slowly more hazy opacity at the right middle lobe consistent with subsegmental atelectasis or early pneumonia. Bones and soft tissues: Diffuse osteopenia. Multiple surgical clips within the epigastric region. Dictated by Edu Dodson MD @ 02/17/2025 2:40:21 PM (Electronically Signed) Procedure Note Edu Dodson MD - 02/17/2025 For Patients: As a result of the Cures Act, medical imagingexams and procedure reports are released immediately into your electronicmedical record. You may view this report before your referring provider.If you have questions, please contact your health care provider. Indication: Dyspnea and malignant neoplasm of the left lower lobe bronchus Technique: Chest 2 views Comparison: Chest x-ray 09/29/2024 Findings/Impression: Cardiovascular and mediastinum: Normal heart size with atheroscleroticcalcification right-sided Port-A-Cath. Lungs and pleural spaces: Hyperinflation with flattening of thehemidiaphragms consistent with emphysema. No pneumothorax or pleuraleffusion. Bandlike opacity within the left lower lobe, likely parenchymalscarring. Slowly more hazy opacity at the right middle lobe consistentwith subsegmental atelectasis or early pneumonia. Bones and soft tissues: Diffuse osteopenia. Multiple surgical clipswithin the epigastric region. Dictated by Edu Dodson MD @ 02/17/2025 2:40:21 PM (Electronically Signed) us Kimberly Mccarthy NP GENERAL IMAGING Final R esult * CT CHEST WO (12/07/2024 10:05 AM FOOD SAFETY MANAGER) Anatomical Region Laterality Modality CHEST, THORAX, HEART Computed To mography 12/08/2024 5:13 AM FOOD SAFETY MANAGER Impressions 12/08/2024 5:13 AM FOOD SAFETY MANAGER 1. Decreased size evolving posttreatment changes in the superior segment of the left lower lobe extending into the hilum. Previous nodule seen just inferior to this is no longer seen. 2. New bilateral basilar peripheral consolidation which probably is infectious/inflammatory. Similar chronic appearing areas of consolidation with architectural distortion traction bronchiectasis in the right middle lobe as well as the right lower lobe Please note that all CT scans at this facility use dose modulation, iterative reconstruction, and/or weight-based dosing when appropriate to reduce radiation dose to as low as reasonably achievable. Dictated by Khloe Snider MD @ 12/08/2024 5:13:41 AM (Electronically Signed) Narrative 12/08/2024 5:13 AM FOOD SAFETY MANAGER For Patients: As a result of the Century Cures Act, medical imaging exams and procedure reports are released immediately into your electronic medical record. You may view this report before your referring provider. If you have questions, please contact your health care provider. INDICATION: Adenocarcinoma of lung TECHNIQUE: CT chest without contrast. Multiplanar reformatted images. MIP images provided COMPARISON: CT 09/29/2024 07/25/2023 FINDINGS: Lungs and pleura: Small pericardial effusion increased from the prior study. Emphysema. Irregular bandlike consolidation with architectural distortion in the superior aspect of the left lower lobe which is decreased in size from 09/29/2024 most likely reflecting evolving post treatment changes. Inferior to this at site of previous left lower lobe nodule this is not currently seen. There is new peripheral basilar consolidation both in the right and left lower lobe which probably is infectious/inflammatory. Similar right middle lobe architectural distortion bandlike opacities and traction bronchiectasis and also in the right lower lobe however in the right lower lobe there is increased new peripheral consolidation as well. Heart and vasculature: Heart size is normal. Thoracic aorta and pulmonary artery are normal in caliber. Dense coronary artery calcification. Lymph nodes/mediastinum: Mediastinal and hilar adenopathy is decreased from the prior study suboptimally assessed given lack of contrast however previous enlarged subcarinal nodes are decreased in size. Chest wall: No masses. Upper abdomen: Postsurgical changes of stomach. Cholelithiasis Bones: No suspicious bony lesions are seen Procedure Note Khloe Snider MD - 12/08/2024 For Patients: As a result of the Cures Act, medical imagingexams and procedure reports are released immediately into your electronicmedical record. You may view this report before your referring provider.If you have questions, please contact your health care provider. INDICATION: Adenocarcinoma of lung TECHNIQUE: CT chest without contrast. Multiplanar reformatted images. MIP imagesprovided COMPARISON: CT 09/29/2024 07/25/2023 FINDINGS: Lungs and pleura: Small pericardial effusion increased from the priorstudy. Emphysema. Irregular bandlike consolidation with architectural distortion in thesuperior aspect of the left lower lobe which is decreased in size from09/29/2024 most likely reflecting evolving post treatment changes.Inferior to this at site of previous left lower lobe nodule this is notcurrently seen. There is new peripheral basilar consolidation both in the right and leftlower lobe which probably is infectious/inflammatory. Similar right middle lobe architectural distortion bandlike opacities andtraction bronchiectasis and also in the right lower lobe however in theright lower lobe there is increased new peripheral consolidation as well. Heart and vasculature: Heart size is normal. Thoracic aorta and pulmonaryartery are normal in caliber. Dense coronary artery calcification. Lymph nodes/mediastinum: Mediastinal and hilar adenopathy is decreasedfrom the prior study suboptimally assessed given lack of contrast howeverprevious enlarged subcarinal nodes are decreased in size. Chest wall: No masses. Upper abdomen: Postsurgical changes of stomach. Cholelithiasis Bones: No suspicious bony lesions are seen IMPRESSION: 1. Decreased size evolving posttreatment changes in the superior segmentof the left lower lobe extending into the hilum. Previous nodule seen just inferior to this is no longer seen. 2. New bilateral basilar peripheral consolidation which probably isinfectious/inflammatory. Similar chronic appearing areas of consolidation with architecturaldistortion traction bronchiectasis in the right middle lobe as well as theright lower lobe Please note that all CT scans at this facility use dose modulation,iterative reconstruction, and/or weight-based dosing when appropriate toreduce radiation dose to as low as reasonably achievable. Dictated by Khloe Snider MD @ 12/08/2024 5:13:41 AM (Electronically Signed) Musa Tapia MD CT Final R esult * LIPID PANEL W REFLEX MEASURED LDL (03/02/2024 10:13 AM CDT) CHOLESTEROL,TOTAL 128 100 - 199 mg/dL 03/02/2024 3:15 PM CDT [facility] Comment: Cholesterol, Total Reference Ranges Desirable <200 mg/dL Borderline 200-239 mg/dL High >=240 mg/dL TRIGLYCERIDES 94 <150 mg/dL 03/02/2024 3:15 PM CDT [facility] HDL CHOLESTEROL 61 >40 mg/dL 3:15 PM CDT [facility] NON-HDL CHOLESTEROL 67 <145 mg/dl 03/02/2024 3:15 PM CDT [facility] CHOL/HDL RATIO 2.10 <4.50 03/02/2024 3:15 PM CDT [facility] LDL CHOLESTEROL 48 <=130 mg/dL 03/02/2024 3:15 PM CDT [facility] VLDL CHOLESTEROL 19 <=30 mg/dL 03/02/2024 3:15 PM CDT [facility] PROVIDER ORDERED STATUS RANDOM 03/02/2024 3:15 PM CDT [facility] Blood BLOOD SPECIMEN / Unknown Butterfly / Unknown 03/02/2024 10:13 AM CDT 03/02/2024 10:13 AM CDT us Willam Jaramillo MD CHEMISTRY Final R esult [facility] [address] [place] [address], [place] * SCAN-COLONOSCOPY (12/12/2020 12:00 AM FOOD SAFETY MANAGER) us Scanner OTHER Final Result * ANTI HCV (07/20/2020 11:00 AM CDT) HEPATITIS C ANTIBODY Non-React swati Non-React swati 07/20/2020 8:05 PM CDT [facility] Comment:Antibodies to HCV no t detected; does not exclude the possibility of exposure to HCV. Blood BLOOD SPECIMEN / Unknown Butterfly / Unknown 07/20/2020 11:00 AM CDT 07/20/2020 11:46 AM CDT us Rosy Croft DO SEND OUTS Final Resu lt [facility] ETC Education [facility] [address] [place] [address], from Last 3 Months or Most Recently [...] 7:36 AM 09/30/2015 9:14 AM Care Teams Bench Patternmaker Metal Relationship Specialty [place] [address] [place] [address] PCP - General Family Practice 02/18/23 [place] [address] [phone] Surgery - Colon and Rectal 03/18/20 Mary Kinney, RN, BSN [address] [place] [address] Nurse Navigator - Oncology Registered Nurse 04/12/23 Tobin Ardon MD [address] [address] Surgery - Cardiothoracic 04/02/23
--- OUTSIDE RECORDS SUMMARY | 2025-03-08 12:03 | XMS_ITS | Encounter Summary ---
Author Organization [place] Address [address] [place] [address]. [place] [address] Care Team Providers Care Supervisor Sheet Manufacturing Name Role Phone [facility], [facility] Primary Care Provider + Hakan Barton MD Unavailable [phone] Venus Barnes MD Primary Care Provider Unavaila Shar [address] RD Unavailable [phone] Jon Eng MD Unavailable [phone] Willam Jaramillo MD Primary Care Provider Encounter Details Date Type Department Care Team (Late st Contact Info) Description 01/10/2021 [facility] Only [facility] [address] [place] [phone] Tamiko Ruiz MD COLON RECTAL SURGERY [address] [address] Abdominal pain (Primary Dx) Social History Tobacco Use Types Packs/Day Years Used Date Smoking Tobacco: Former Cigarettes Comments:quit 2013 Alcohol Use Standard Drinks/Week Comments Yes 0 (1 standard drink = 0.6 oz pur e alcohol) occas Comments No Sex and Gender Information Value Date Recorded Sex Assigned at Not on file Legal Sex Female 3:09 AM CASH REGISTER SERVICER Gender Identity Not on file Sexual Orientation [...] Out C-difficile 09/27/2021 09/27/2021 021 2:32 PM CASH REGISTER SERVICER Rule Out C-difficile 01/14/2022 01/14/2022 022 6:15 PM CDT documented as of this encounter Care Teams Supervisor Sheet Manufacturing Relationship Specialty Start Date End Date [facility] [address] [place] [address] PCP - General 07/05/16 07/02/21 [place] [address] [place] [address] PCP - General 07/03/21 07/27/22 [place] [address] [place] [address] PCP - General 07/28/22 [place] [address] [place] [address] Assigned Gastroenterology Provider 05/07/21 08/30/[address] [place] [address] Registered Dietitian Dietitian, Registered 07/20/21 Jon Eng MD [address] [facility] [id number] [place] [address] Assigned Surgical Provider 04/14/22 documented as of this encounter
[2025-03-08 12:04] VITALS: BP 155/78; PULSE 61; RESP 18; TEMP 36.8; O2SAT 94; BMI 17.5
--- NOTE | 2025-03-08 12:15 | ED.LOWEXIN ---
HPI - Extremity Injury (Lower) General Date Seen: 03/08/25 Chief Complaint: Extremity Pain/Injury, Lower Stated Complaint: possible blood cloth on left foot Time Seen by Provider: 03/08/25 12:02 Source: patient and RN notes reviewed Mode of arrival: ambulatory Limitations: no limitations History of Present Illness HPI Narrative: This 75-year-old female is coming in with concern of swelling, bruising and pain to her left lower leg. She was at a baseball game on Saturday, today is Saturday. She had a fly ball hit her right heel with her shoe on, bounced off the heel and hit her left leg. She is chronically anticoagulated with Eliquis due to atrial fibrillation. She withheld 1 dose of Eliquis Saturday night due to the injury. She has noticed increased bruising and pain. She has been back on her Eliquis, only held the 1 dose Saturday night. She reports that she is cancer free at this point, had lung cancer. No history of blood clots. She does have multiple drug allergies, has had problems with recurrent C difficile colitis. Related Data Home Medications ?Medication ?Instructions ?Recorded ?Confirmed rosuvastatin 20 mg tablet 20 mg PO DAILY 10/15/22 10/16/24 Held on 10/16/24. Instructions: Doctor's Order vancomycin 125 mg capsule 125 mg PO DAILY 10/15/22 10/16/24 amlodipine 2.5 mg tablet 2.5 mg PO DAILY 06/24/23 10/16/24 Held on 10/16/24. Instructions: Doctor's Order oxycodone-acetaminophen 5 mg-325 0.5 tab PO Q6H PRN 06/24/23 10/16/24 mg tablet Held on 10/16/24. Instructions: Doctor's Order prochlorperazine maleate 10 mg 10 mg PO Q6H PRN nausea 06/24/23 10/16/24 tablet Held on 10/16/24. Instructions: Doctor's Order Magic Mouthwash 5 ml PO QID PRN #120 mL 07/06/23 07/15/23 (Lidocaine/Benadryl/Maalox) 120 mL suspension apixaban 5 mg tablet (Eliquis) 5 mg PO BID 09/13/23 10/16/24 losartan 100 mg tablet 100 mg PO DAILY 09/13/23 10/16/24 Held on 10/16/24. Instructions: Doctor's Order acetylcysteine 200 mg/mL (20 %) 3 ml BID 05/03/24 solution Held on 10/16/24. Instructions: Doctor's Order albuterol sulfate 2.5 mg/3 mL 1 mg 05/03/24 (0.083 %) solution for nebulization Previous Rx's ?Medication ?Instructions ?Recorded metoprolol tartrate 50 mg tablet 50 mg PO BID #60 tabs 06/27/23 benzonatate 100 mg capsule 100 mg PO TID 14 days #42 caps 07/10/23 Held on 10/16/24. Instructions: Doctor's Order ipratropium 0.5 mg-albuterol 3 mg 3 ml inhalation QID 30 days #120 mL 07/10/23 (2.5 mg base)/3 mL nebulization soln ondansetron 4 mg disintegrating 4 mg PO Q6H PRN 14 days #20 tabs 07/10/23 tablet azithromycin 500 mg tablet 500 mg PO DAILY 7 days #7 tabs 08/08/23 Held on 10/16/24. Instructions: Doctor's Order Allergies Allergy/AdvReac Type Severity Reaction Status Date / Time cefuroxime Allergy Severe Anaphylaxis Verified 03/08/25 12:11 codeine Allergy Severe Hypotension Verified 03/08/25 12:11 gatifloxacin (From Tequin) Allergy Severe Anaphylaxis Verified 03/08/25 12:11 hydrocodone (From Vicodin) Allergy Severe Hypertensio Verified 03/08/25 12:11 n iron (From Venofer) Allergy Severe Anaphylaxis Verified 03/08/25 12:11 meperidine (From Demerol) Allergy Severe Anaphylaxis Verified 03/08/25 12:11 morphine Allergy Severe SOB Verified 03/08/25 12:11 Penicillins Allergy Severe Anaphylaxis Verified 03/08/25 12:11 Quinolones Allergy Severe Anaphylaxis Verified 03/08/25 12:11 fentanyl Allergy Intermediate Verified 03/08/25 12:11 acetaminophen (From Panlor Allergy Unknown Unknown Verified 03/08/25 12:11 (hydrocodone-acetamin)) ampicillin (From Unasyn) Allergy Unknown Nausea Verified 03/08/25 12:11 doxycycline Allergy Unknown other Verified 03/08/25 12:11 magnesium citrate Allergy Unknown Diarrhea Verified 03/08/25 12:11 metronidazole (From Flagyl) Allergy Unknown Flushing Verified 03/08/25 12:11 sulbactam (From Unasyn) Allergy Unknown Nausea Verified 03/08/25 12:11 sulfamethoxazole (From Allergy Unknown Nausea Verified 03/08/25 12:11 Sulfamethoxazole-Trimethoprim) trimethoprim (From Allergy Unknown Nausea Verified 03/08/25 12:11 Sulfamethoxazole-Trimethoprim) Review of Systems Narrative: As per HPI. [facility] Medical History COPD (chronic obstructive pulmonary disease) ?J44.9 - Chronic obstructive pulmonary disease, unspecified (ICD-10) C. difficile colitis ?A04.72 - Enterocolitis due to Clostridium difficile, not specified as recurrent (ICD-10) Rash ?R21 - Rash and other nonspecific skin eruption (ICD-10) Radiation dermatitis ?L58.9 - Radiodermatitis, unspecified (ICD-10) Cerebral aneurysm ?I67.1 - Cerebral aneurysm, nonruptured (ICD-10) PVD (peripheral vascular disease) ?I73.9 - Peripheral vascular disease, unspecified (ICD-10) Intermittent atrial fibrillation ?I48.0 - Paroxysmal atrial fibrillation (ICD-10) Non-small cell carcinoma of left lung, stage 3 ?C34.92 - Malignant neoplasm of unspecified part of left bronchus or lung (ICD-10) Surgical History S/P colectomy ?Z90.49 - Acquired absence of other specified parts of digestive tract (ICD-10) Social History What is your current living situation?: I presently have a place to live Problems where you live: no known problems Problems where you live details: no problems In the past 12 months, utilities in danger of being shut off: no In past 12 months, lack of transportation kept you from medical appts, meetings, work, or getting things needed for daily living: no In the past 12 mos, have been you worried that your food would run out before you had money to buy more?: never true In the past 12 mos, the food you bought just didn't last and you didn't have money to buy more?: never true Highest level of school completed/degree received: some college, no degree Smoking Status: Former smoker Do you use any of these nicotine containing products: None Second hand tobacco smoke exposure: Yes How often do you have a drink containing alcohol: monthly or less Alcohol type: beer How many standard drinks containing alcohol do you have on a typical day: 1 or 2 How often do you have six or more drinks on one occasion: Never AUDIT-C Alcohol total score: 1 Non-prescribed substance use: denies use Caffeine: Yes (not in the last 3 months) How often does anyone, including family, friends and others, physically hurt you: never How often does anyone, including family, friends and others, insult or talk down to you: never How often does anyone, including family, friends and others, threaten you with harm: never How often does anyone, including family, friends and others, scream or curse at you: never service: No Exam Const: Vital Signs, click to edit/add: Vital Signs - 24 hr 03/08/25 12:04 Temperature 98.2 F Pulse Rate [Left P ulse Oximeter] 61 Respiratory Rate 18 Blood Pressure [Ri ght Upper Arm] 155/78 H Pulse Oximetry 94 Oxygen Delivery Me thod Room Air This 75-year-old female is alert, interactive, no apparent distress. Ambulatory into the ED of her own accord. Speaking complete sentences, very well kept pleasant. CV regular rate and rhythm, no murmur, do not hear any irregular or active be suggestive of atrial fibrillation during the time I listened. She was removed from her left lower extremity. She had a bandage on and this was removed. Underlying the medial tibia area is bruising, some swelling but no warmth. She has some superficial open skin area, just looks to be through the epidermis, no evidence of infection at this time. She is tender over the anterior tibia just a little bit below that and the ecchymoses is tracking inferiorly down behind the medial malleolus. Definitely seems to have some dependent tracking of bruising. There is no fluctuance anywhere, certainly not in the central area where she was hit. Documenting provider has reviewed patient's vital signs: yes Course Course ED Course: Have reviewed with Shmuel that would be very unlikely for her to have a blood clot with this presentation and being on Eliquis. I do understand she withheld 1 dose of her Eliquis Saturday night after the injury which probably did help nia some of the bleeding. We discussed that when I am seen is hematoma and bleeding. She is tender on palpation over the tibia, do think we should do some imaging with x-rays. Have discussed doing ultrasound and reviewed with her the low probability of blood clot in this situation. We both have agreed that ultrasound is not indicated at this time after risk benefit discussion. Will have nursing staff put a new bandage over her leg. Will make sure her tetanus is up-to-date. I see no evidence of infection of her superficial wounds at this time, likely happen due to the trauma and the swelling of the area. She needs to watch for infection and do diligent wound care. We discussed just soap and water to clean the wound at least daily and then bandaging. She has so many antibiotic allergies and intolerances and a history of C difficile colitis that I would not recommend treating with antibiotics unless completely indicated. We did discuss the importance of elevating this wound and minimizing dependent nature of this leg for about the next 3-5 days to give the swelling some time to resolve as well as the ecchymosis/hematoma. Reevaluation(s) Time of Reevaluation #1: 13:24 Reevaluation #1: Last tetanus was in 2016 per nursing staff whom looked in [facility]. Have reviewed negative x-ray imaging with patient. Did review her last tetanus was in 2015. She has immunotherapy coming up this next week, declines updating her tetanus at this time. Vital Signs Vital signs: Initial Vital Signs Temperature 98.2 F 03/08/25 12:04 Temperature Source Oral 03/08/25 12:04 Pulse Rate 61 03/08/25 12:04 Respiratory Rate 18 03/08/25 12:04 Blood Pressure 155/78 H 03/08/25 12:04 Blood Pressure Mean 103 03/08/25 12:04 Blood Pressure Position Sitting 03/08/25 12:04 Pulse Oximetry 94 03/08/25 12:04 Oxygen Delivery Method Room Air 03/08/25 12:04 Vital Signs Temperature 98.2 F 03/08/25 12:04 Pulse Rate 61 03/08/25 12:04 Respiratory Rate 18 03/08/25 12:04 Blood Pressure 155/78 H 03/08/25 12:04 Pulse Oximetry 94 03/08/25 12:04 Oxygen Delivery Method Room Air 03/08/25 12:04 Temperature 98.2 F 03/08/25 12:04 Pulse Rate 61 03/08/25 12:04 Respiratory Rate 18 03/08/25 12:04 Blood Pressure 155/78 H 03/08/25 12:04 Pulse Oximetry 94 03/08/25 12:04 Oxygen Delivery Method Room Air 03/08/25 12:04 MDM - Extremity Injury (Lower) Imaging Data XR left tib/fib: Attestation: I have reviewed the pertinent imaging results. My impression: I do not perceive any acute fracture on my preliminary review. Radiologist's impression: Patient: SHMUEL RIVERA Facility:?[facility] Patient ID:?[id number] Site Patient ID:?[id number]. Site :?[id number] Study:?XRay-Extremity Left tib/fib 2v-03/08/2025 12:45:57 PM Ordering Physician:Hannah Sanchez Final Report: INDICATION: Tibia Injury, hit by baseball TECHNIQUE: Tibia-fibula radiograph 2 views left COMPARISON: None FINDINGS: Bone: No acute fractures or aggressive bone lesions are identified. 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 The ankle joint is unremarkable. No significant joint effusion is seen. Soft tissue: Overlying fabric artifacts moderately degrade the evaluation of the soft tissues and osseous structures surrounding the knee joint. No radiopaque foreign bodies are seen. IMPRESSION: 1. No acute osseous injuries or abnormalities are noted. Dictated by Ajit Malin MD @ 03/08/2025 1:18:57 PM Dictated by: Ajit Malin MD @ 03/08/2025 13:19:00 (Electronic Signature) Discharge Plan Discharge Clinical Impression: Contusion of left lower leg Qualifiers: Encounter type: initial encounter Qualified Code(s): S80.12XA - Contusion of left lower leg, initial encounter Patient Disposition: Home, Self-Care Condition: Stable Instructions: Contusion in Adults (ED) Additional Instructions: Watch the open skin areas very closely for development of secondary infection. Do recommend keeping this leg bandaged while you are up and about during the day. Recommend cleaning with soap and water daily. Try to ice and elevate this lower extremity as much as possible for the next 3-5 days as needed until swelling and bruising diminished. Continue on the Eliquis. Note that the Eliquis may cause further bruising but if you ice and elevate, this may help prevent some of that. If you have further concerns for this wound, feel that infection is developing, please seek re-evaluation. Activity Level: Activity as Tolerated Prescriptions: No Action losartan 100 mg tablet 100 mg PO DAILY Eliquis 5 mg tablet 5 mg PO BID vancomycin 125 mg capsule 125 mg PO DAILY Patient Comments: TAKE ONE CAPSULE BY MOUTH EVERY DAY rosuvastatin 20 mg tablet 20 mg PO DAILY prochlorperazine maleate 10 mg tablet 10 mg PO Q6H PRN (Reason: nausea) oxycodone-acetaminophen 5-325 mg tablet 0.5 tab PO Q6H PRN amlodipine 2.5 mg tablet 2.5 mg PO DAILY metoprolol tartrate 50 mg Tablet 50 mg PO BID Qty: 60 0RF azithromycin 500 mg tablet 500 mg PO DAILY 7 Days Qty: 7 0RF Magic Mouthwash (Lidocaine/Benadryl/Maalox) 120 mL suspension 5 ml PO QID PRNQty: 120 benzonatate 100 mg Capsule 100 mg PO TID 14 Days Qty: 42 0RF ondansetron 4 mg Tablet,Disintegrating 4 mg PO Q6H PRN14 Days Qty: 20 1RF ipratropium-albuterol 0.5 mg-3 mg(2.5 mg base)/3 mL Solution For Nebulization 3 ml inhalation QID 30 Days Qty: 120 1RF acetylcysteine 200 mg/mL (20 %) solution 3 ml BID albuterol sulfate 2.5 mg /3 mL (0.083 %) solution for nebulization 1 mg Follow Up/Referrals: Willam Jaramillo MD [Primary Care Provider, Family Practice] Stand Alone Forms: [employer] Info Instructions
--- NOTE | 2025-03-08 12:24 | CRLHL7_ITS ---
For Patients: As a result of the Century Cures Act, medical imaging exams and procedure reports are released immediately into your electronic medical record. You may view this report before your referring provider. If you have questions, please contact your health care provider. INDICATION: Tibia Injury, hit by baseball TECHNIQUE: Tibia-fibula radiograph 2 views left COMPARISON: None FINDINGS: Bone: No acute fractures or aggressive bone lesions are identified. 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 The ankle joint is unremarkable. No significant joint effusion is seen. Soft tissue: Overlying fabric artifacts moderately degrade the evaluation of the soft tissues and osseous structures surrounding the knee joint. No radiopaque foreign bodies are seen. IMPRESSION: 1. No acute osseous injuries or abnormalities are noted. Dictated by Ajit Malin MD @ 03/08/2025 1:18:57 PM Dictated by: Ajit Malin MD @ 03/08/2025 13:19:00 (Electronically Signed)
== END 2025-03-08 13:34 | disposition home or self-care (01) ==
PROVIDERS: Emergency Provider Family Medicine; PCP Family Medicine
DX: S80.12XA Contusion of left lower leg, initial encounter (principal); I48.91 Unspecified atrial fibrillation; W21.03XA Struck by baseball, initial encounter; Z79.01 Long term (current) use of anticoagulants
CPT/HCPCS: 73590; 99283

== ENCOUNTER 2025-03-11 13:38 | Emergency (ER) | payer MEDICARE, OTHER, SELFPAY ==
--- OUTSIDE RECORDS SUMMARY | 2025-03-11 13:40 | XMS_ITS | Encounter Summary ---
Author Organization [facility] Address [address] [place] [address] Care Team Providers Care Stamps Or Coins Salesperson Name Role Phone [facility], [facility] Primary Care Provider + Hakan Barton MD Unavailable [phone] Venus Barnes MD Primary Care Provider Unavaila Shar Mcneal RD Unavailable [phone] Jon Eng MD Unavailable [phone] Willam Jaramillo MD Primary Care Provider Encounter Details Date Type Department Care Team (Late st Contact Info) Description 05/22/2021 [facility] Only [facility] [address] [place] [id number] Marleny Keller Diarrhea, unspecified type Social History Tobacco Use Types Packs/Day Years Used Date Smoking Tobacco: Former Cigarettes Comments:quit 2013 Alcohol Use Standard Drinks/Week Comments Yes 0 (1 standard drink = 0.6 oz pur e alcohol) occas Comments No Sex and Gender Information Value Date Recorded Sex Assigned at Not on file 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 Rule Out C-difficile 01/14/2022 01/14/2022 022 6:15 PM CDT documented as of this encounter Care Teams Stamps Or Coins Salesperson Relationship Specialty Start Date End Date [facility], [facility] [place] [address] PCP - General 07/05/16 07/02/21 [place] [address] [address] [address] PCP - General 07/03/21 07/27/22 [place] [address] [place] [address] PCP - General 07/28/22 [place] [address] [place] [address] Assigned Gastroenterology Provider 05/07/21 08/30/[address] [place] [address] Registered Dietitian Dietitian, Registered 07/20/21 Jon Eng MD [address] [place] [address] [id number] [place] [address] Assigned Surgical Provider 04/14/22 documented as of this encounter
--- OUTSIDE RECORDS SUMMARY | 2025-03-11 13:41 | XMS_ITS | Encounter Summary ---
Author Organization [facility] Address [address] [place] [address] Care Team Providers Care Luggage Maker Name Role Phone [facility], [facility] Primary Care Provider + Hakan Barton MD Unavailable [phone] Venus Barnes MD Primary Care Provider Unavaila Shar Mcneal RD Unavailable [phone] Jon Eng MD Unavailable [phone] Willam Jaramillo MD Primary Care Provider Encounter Details Date Type Department Care Team (Late st Contact Info) Description 06/20/2021 [facility] Only [facility] [address] [place] [address] HaseebriAlexandria herrera Diarrhea, unspecified type Social History Tobacco Use Types Packs/Day Years Used Date Smoking Tobacco: Former Cigarettes Comments:quit 2013 Alcohol Use Standard Drinks/Week Comments Yes 0 (1 standard drink = 0.6 oz pur e alcohol) occas Comments No Sex and Gender Information Value Date Recorded Sex Assigned at Not on file 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 Gender Identity Not on file Sexual Orientation [...] CDT [facility] Comment:Normal Stool RECTAL CONTENTS / Unknown Non-blood Collection / Unknown 06/20/2021 11:00 AM CDT 06/20/2021 11:41 AM CDT us Hakan Barton MD LAB - STOOLS ORDERABLES Fin al Result [facility] SPECIALTY [facility] Specialty Core Lab [address] [facility], [address] [place] [address], [facility] [phone] * (ABNORMAL) Clostridium difficile Toxin B PCR (06/20/2021 11:00 AM CDT) Pathologist [facility] C Difficile Toxin B by PCR Positive( [...] LABORATORY - 06/20/2021 3:31 PM CDT The [facility] Xpert C. difficile Assay, performed on the [...] LES Final Result [facility] Infectious Diseases Diagnostic Lab (IDDL) [address] [facility], [address] [place] [address], [facility] [phone] documented in this encounter Visit Diagnoses Diagnosis Diarrhea, unspecified type documented in this encounter Additional Health Concerns Infection Onset Date Last Indicated Resolved Time C-difficile 04/26/2021 07/18/2021 08/17/2021 11:3 9 PM CDT Rule Out C-difficile 06/20/2021 06/20/2021 021 3:31 PM CDT Rule Out C-difficile 07/18/2021 07/18/2021 021 9:41 PM CDT Rule Out C-difficile 09/27/2021 09/27/2021 021 2:32 PM PHARMACOGENETICIST Rule Out C-difficile 01/14/2022 01/14/2022 022 6:15 PM CDT documented as of this encounter Care Teams Luggage Maker Relationship Specialty Start Date End Date [facility] [address] [place] [address] PCP - General 07/05/16 07/02/21 [place] [address] [place] [address] PCP - General 07/03/21 07/27/22 [place] [address] PCP - General 07/28/22 [place] [address] [place] [address] Assigned Gastroenterology Provider 05/07/21 08/30/23 Shar Bartlett, RD [address] [place], [place] [address] Registered Dietitian Dietitian, Registered 07/20/21 Jon Eng MD [address] [facility] [id number] [place], [place] [address] Assigned Surgical Provider 04/14/22 documented as of this encounter
--- OUTSIDE RECORDS SUMMARY | 2025-03-11 13:41 | XMS_ITS | Clinical Summary ---
Author Organization [facility] Address [address] [place] [address] Care Team Providers Care Loading Unit Operator Name Role Phone Tamiko Ruiz MD Unavailable [phone] Willam Jaramillo MD Primary Care Provider Mary Kinney RN, BSN Unavailable Unavailab Tobin Acevedo MD Unavailable [phone] Allergies Active Allergy Reactions Criticality Noted Date [...] Take 125 mg by mouth. 021 Active amLODIPine (NORVASC) 5 mg tabletIndicatio ns:HTN (hypertension) Take 1 Tablet (5 mg) by mouth once daily. 90 Tablet 3 024 Active metoprolol succinate SR (TOPROL XL) 200 mg Sustained-Relea se tabletIndicatio ns:Paroxysmal atrial fibrillation (HC) Take 1 Tablet (200 mg) by mouth once daily. DUE FOR ANNUAL FOLLOW UP TO RECEIVE REFILLS: [phone] 90 Tablet 3 024 Active oxygen-air delivery [...] Nocturnal;. Length of need: Lifetime Months.DME is [facility] in [place], Reported on 11/30/2024 apixaban (Eliquis) 5 mg [...] TIMES EVERY DAY 540 mL 025 Active rosuvastatin 20 mg tabletIndicatio ns:Coronary artery disease involving red cliff coronary artery of red cliff heart without angina pectoris Take 1 Tablet (20 mg) by mouth at bedtime. 90 Tablet 1 025 Active acetylcysteine 200 mg/mL (20%) neb solution INHALE 3 MILLILITERS BY NEBULIZATION ROUTE 2 TIMES EVERY DAY* 024 2024 Discontinued rosuvastatin (CRESTOR) 20 mg tabletIndicatio ns:Coronary artery disease involving red cliff coronary artery of red cliff heart without angina pectoris Take 1 Tablet (20 mg) by mouth at bedtime. 90 Tablet 3 024 2024 Discontinued predniSONE (DELTASONE) 20 mg [...] Diagnosed 2022. Follows with Dr. Cortez at [place] [facility]. Had radiation, on immunotherapy for 1 year Nodule of left lung 03/19/2023 Overview (03/19/2023): 1.[address] in [place] 03/10/2023 Supraventricular tachycardia 02/18/2023 Coronary artery disease [...] Colon cancer screening 02/23/2013 Overview (09/04/2015): 2012 [facility] colonoscopy positive for: diverticula and 10 mm polyp at the hepatic flexure with pathology showing tubular adenoma with low-grade dysplasia, Dr. Kruse at [facility] recommend repeat colonoscopy in 3 years in [...] Chris recommended CT of Colonography. Cedrick at [facility] Nov 2012, see consult note. Counseling for [...] Date Type Department Care Team Description 03/08/2025 Orders Only [facility] Scanner 1 scan: (1-Ord) KAYLAN, TIBIA FIBULA LT, 03/08/2025 03/08/2025 Refill [facility] [address] [place] [address] Willam Jaramillo MD Refill Request (Rosuvastatin) 02/23/2025 [facility]ill [facility] [address] [place] [address] Lacho Rodriguez MD Refill Request (Acetylcysteine) 02/20/2025 [facility]ill [facility] [address] [place] [address] Lacho Rodriguez MD Refill Request (Acetylcysteine) 02/17/2025 2:30 PM CDT Ancillary Procedure [facility] [address] [place] [address] 02/17/2025 [facility]phone [facility] [place] [address] [facility] [address] [place] [phone] Musa Tapia MD Medication Management 02/17/2025 Travel 01/03/2025 Refill [facility] [address] [place] [address] Willam Jaramillo MD Refill Request (Budesonide-formote rol) 12/30/2024 [facility]phone [facility] [place] [address] [facility] [address] [place] [phone] Musa Tapia MD Concerns (Discuss lung fluid ) 12/27/2024 Refill [facility] [address] [place] [address] Willam Jaramillo MD Refill Request (Losartan) 12/24/2024 Telephone [facility] [address] [place] [address] Musa Tapia MD from Last 3 Months [...] on file Legal Sex Female 5:33 AM GROUND CREW SUPERVISOR Gender Identity Not on file Sexual Orientation Not on file Obstetrics History Last Filed Vital Signs Vital Sign Reading Time Taken Comments Blood Pressure 132/72 11/30/2024 11:05 AM GROUND CREW SUPERVISOR Pulse 92 11/30/2024 11:05 AM GROUND CREW SUPERVISOR Temperature 36.5 C (97.7 F) 11/30/2024 11:05 AM GROUND CREW SUPERVISOR Respiratory Rate 16 09/29/2024 1:30 PM GROUND CREW SUPERVISOR Oxygen Saturation 89% 11/30/2024 11: 05 AM GROUND CREW SUPERVISOR Inhaled Oxygen Concentration - - Weight 47.2 kg (104 lb) 11/30/2024 11:0 5 AM GROUND CREW SUPERVISOR patient reported Height 163.8 cm (5' 4.5) 11/30/2024 11 :05 AM GROUND CREW SUPERVISOR patient reported Body Mass Index 17.58 11/30/2024 11:05 AM GROUND CREW SUPERVISOR Plan of Treatment Upcoming Encounters Date Type Department Care Team (Late st Contact Info) Description 04/20/2025 9:20 AM CDT [facility] [place] [address] [place] [phone] Musa Tapia MD [address] [place] [address] Health Maintenance Due Date Last Done Comments [...] Procedure Name Priority Date/Time Associated Diagnosis Comments SCAN-RADIOLOGY REPORT 03/08/2025 12:00 AM CDT XR CHEST 2 VIEWS PA AND LATERAL STAT 02/17/2025 2:26 PM CDT Malignant neoplasm of lower lobe bronchus, left (HC) Dyspnea, paroxysmal nocturnal CT CHEST WO Routine 12/07/2024 10:05 AM GROUND CREW SUPERVISOR Adenocarcinoma of lung, unspecified laterality (HC) LIPID PANEL W REFLEX MEASURED LDL Routine 03/02/2024 10:13 AM CDT Lipid screening SCAN-COLONOSCOPY 12/12/2020 12:0 0 AM GROUND CREW SUPERVISOR ANTI HCV Routine 07/20/2020 11:00 AM CDT Need for hepatitis C screening test from Last 3 Months or Most Recently Relevant to Health Maintenance Results * SCAN-RADIOLOGY REPORT (03/08/2025 12:00 AM CDT) Anatomical Region Laterality Modality Other us Scanner OTHER Final Result * XR CHEST 2 VIEWS PA AND [...] * CT CHEST WO (12/07/2024 10:05 AM GROUND CREW SUPERVISOR) Anatomical Region Laterality Modality CHEST, THORAX, HEART Computed To mography 12/08/2024 5:13 AM GROUND CREW SUPERVISOR Impressions 12/08/2024 5:13 AM GROUND CREW SUPERVISOR 1. Decreased size evolving posttreatment changes in [...] AM (Electronically Signed) Narrative 12/08/2024 5:13 AM GROUND CREW SUPERVISOR For Patients: As a result of the 21st Century Cures Act, medical imaging exams and [...] MD @ 12/08/2024 5:13:41 AM (Electronically Signed) us Musa Tapia MD CT Final R esult * LIPID PANEL W REFLEX MEASURED LDL (03/02/2024 10:13 AM CDT) CHOLESTEROL,TOTAL 128 100 - 199 mg/dL 03/02/2024 3:15 PM CDT [facility] Comment: Cholesterol, Total Reference Ranges Desirable <200 mg/dL Borderline 200-239 mg/dL High >=240 mg/dL TRIGLYCERIDES 94 <150 mg/dL 03/02/2024 3:15 PM CDT [facility] HDL CHOLESTEROL 61 >40 mg/dL 3:15 PM CDT [facility] NON-HDL CHOLESTEROL 67 <145 mg/dl 03/02/2024 3:15 PM CDT [facility] CHOL/HDL RATIO 2.10 <4.50 03/02/2024 3:15 PM CDT [facility] LDL CHOLESTEROL 48 <=130 mg/dL 03/02/2024 3:15 PM CDT [facility] VLDL CHOLESTEROL 19 <=30 mg/dL 03/02/2024 3:15 PM CDT [facility] PROVIDER ORDERED STATUS RANDOM 03/02/2024 3:15 PM CDT [facility] Blood BLOOD SPECIMEN / Unknown Butterfly / Unknown 03/02/2024 10:13 AM CDT 03/02/2024 10:13 AM CDT Willam Jaramillo MD CHEMISTRY Final R esult Performing Organization Address City/[facility]/ZIP Co de Phone Number [facility] [address] [place] [address], * SCAN-COLONOSCOPY (12/12/2020 12:00 AM GROUND CREW SUPERVISOR) Scanner OTHER Final Result * ANTI HCV (07/20/2020 11:00 AM CDT) HEPATITIS C ANTIBODY Non-React swati Non-React swati 07/20/2020 8:05 PM CDT [facility] Comment:Antibodies to HCV no t detected; does not exclude the possibility of exposure to HCV. Blood BLOOD SPECIMEN / Unknown Butterfly / Unknown 07/20/2020 11:00 AM CDT 07/20/2020 11:46 AM CDT Rosy Croft DO SEND OUTS Final Resu lt Performing Organization Address [facility] Co de Phone Number [facility] [address] [place] [address], from Last 3 Months or Most Recently Relevant to Health Maintenance Insurance MEDICARE PB ONLY MEDICARE PART B HB ONLY MEDICARE PART A HB ONLY [employer] MEDICARE SUPPLEMENT SOLUTIONS TPL UNDETERMINED [address] [place] [address] Advance Directives * Full Code (Latest Code [...] 7:36 AM 09/30/2015 9:14 AM Care Teams Loading Unit Operator Relationship Specialty [place] [address] [place] [address] PCP - General Family Practice 02/18/23 [place] [address] [phone] Surgery - Colon and Rectal 03/18/20 Mary Kin[place], [place] B[place] [address] [place] [address] Nurse Navigator - Oncology Registered Nurse 04/12/23 Tobin Ardon MD [address] [address] Surgery - Cardiothoracic 04/02/23
--- OUTSIDE RECORDS SUMMARY | 2025-03-11 13:41 | XMS_ITS ---
Author Organization [facility] Address [address] [place] [address] Care Team Providers Care Foot Specialist Name Role Phone Elsewhere, Pcp Primary [...] Fraction Dose Fractions Total Dose Plans Planned [id number] 05/15/2023 - 07/03/2023 200 cGy 30 / 30 6 ,000 cGy Reference Points Delivered [id number] 05/15/2023 - 07/03/2023 6,000 cGy
--- OUTSIDE RECORDS SUMMARY | 2025-03-11 13:41 | XMS_ITS | Encounter Summary ---
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 Gender Identity Not on file Sexual Orientation [...] Out C-difficile 09/27/2021 09/27/2021 021 2:32 PM FROZEN MEAT CUTTER Rule Out C-difficile 01/14/2022 01/14/2022 022 6:15 PM CDT documented as of this encounter Care Teams Clinical Data Manager Relationship Specialty Start Date End Date [facility] [address] [place] [phone] PCP - General 07/05/16 07/02/21 [place] [address] [place], [place] [address] PCP - General 07/03/21 07/27/22 [place] [address] [place] [address] PCP - General 07/28/22 [place] [address] [place], [place] [address] Assigned Gastroenterology Provider 05/07/21 08/30/[address] [place] [address] Registered Dietitian Dietitian, Registered 07/20/21 Jon Eng MD [address] [place] [address] [id number] [place] [address] Assigned Surgical Provider 04/14/22 documented as of this encounter
--- OUTSIDE RECORDS SUMMARY | 2025-03-11 13:41 | XMS_ITS | Encounter Summary ---
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 difficile Assay, performed on the Replication Medical GeneXpert Instrument Systems, is a qualitative in [...] ORDERAB LES Final Result [facility] Inf. Diseases Diag. Lab [address] [facility], [address] [place] [address], [facility] [phone] * Enteric Bacteria and Virus Panel by JAQUI Stool (01/14/2022 11:30 AM CDT) Pathologist [facility] Campylobacter group Not Detected Not Detected 01/14/2022 [...] performed by multiplexed, qualitative PCR using the Adeze Enteric Pathogens Nucleic Acid Test. Results should [...] ORDERAB LES Final Result [facility] Inf. Diseases Diag. Lab [address] [facility], [address] [place] [address], [facility] [phone] documented in this encounter Visit Diagnoses Diagnosis Diarrhea, unspecified type documented in this encounter Additional Health Concerns Infection Onset Date Last Indicated Resolved Time Rule Out C-difficile 01/14/2022 01/14/2022 022 6:15 PM CDT documented as of this encounter Care Teams Cutter Gas Relationship Specialty [place] [address] [place] [address] PCP - General 07/03/21 07/27/22 [place] [address] [place] [address] PCP - General 07/28/22 [place] [address] [place] [address] Assigned Gastroenterology Provider 05/07/21 08/30/23 Shar Bartlett, TAYLA [address] [place] [address] Registered Dietitian Dietitian, Registered 07/20/21 Jon Eng MD [address] [place] [address] [id number] [place] [address] Assigned Surgical Provider 04/14/22 documented as of this encounter
--- OUTSIDE RECORDS SUMMARY | 2025-03-11 13:41 | XMS_ITS | Encounter Summary ---
Author Organization [facility] Address [address] [place] [address] Care Team Providers Care Ethylene Oxide Panelboard Operator Name Role Phone [facility] Primary Care Provider + Hakan Barton MD Unavailable [phone] Venus Barnes MD Primary Care Provider Unavaila Shar Mcneal RD Unavailable [phone] Jon Eng MD Unavailable [phone] Willam Jaramillo MD Primary Care Provider Encounter [...] on file Legal Sex Female 3:09 AM CHEF DE FROID Gender Identity Not on file Sexual Orientation [...] Out C-difficile 09/27/2021 09/27/2021 021 2:32 PM CHEF DE FROID Rule Out C-difficile 01/14/2022 01/14/2022 022 6:15 PM CDT documented as of this encounter Care Teams Ethylene Oxide Panelboard Operator Relationship Specialty Start Date End Date [facility] [place] [address] PCP - General 07/05/16 07/02/21 [place] [address] [place] [address] PCP - General 07/03/21 07/27/22 [place] [address] [place] [address] PCP - General 07/28/22 [place] [address] [place] [address] Assigned Gastroenterology Provider 05/07/21 08/30/[address] [place] [address] Registered Dietitian Dietitian, Registered 07/20/21 Jon Eng MD [address] [place] [address] [id number] [place] [address] Assigned Surgical Provider 04/14/22 documented as of this encounter
--- OUTSIDE RECORDS SUMMARY | 2025-03-11 13:41 | XMS_ITS | Encounter Summary ---
Author Organization [facility] Address [address] [place] [address] Care Team Providers Care Bench Machine Operator Name Role Phone Hakan Barton MD Unavailable Venus Barnes MD Primary Care Provider Unavaila Shar Mcneal RD Unavailable [phone] Jon Eng MD Unavailable [phone] Willam Jaramillo MD Primary Care Provider Encounter Details Date Type Department Care Team (Late st Contact Info) Description 09/27/2021 [facility] Only [facility] [address] [place] [phone] [place] Diarrhea, unspecified type Social History Tobacco Use Types Packs/Day Years Used Date Smoking Tobacco: Former Cigarettes Smokeless Tobacco: Never Comments:quit 2013 Alcohol Use Standard Drinks/Week Comments Yes 0 (1 standard drink = 0.6 oz pur e alcohol) occas Comments No Sex and Gender Information Value Date Recorded Sex Assigned at Not on file Legal Sex Female 3:09 AM CERAMIC WORKER Gender Identity Not on file Sexual Orientation Not on file COVID-19 Exposure Response Date Recorded In the last month, have you been in contact with someone who was confirmed or suspected to have Coronavirus / COVID-19? No / Unsure 09/28/2021 7:30 AM CERAMIC WORKER documented as of this encounter Plan of Treatment Not on file documented as of this encounter Procedures Procedure Name Priority Date/Time Associated Diagnosis Comments ENTERIC BACTERIA AND VIRUS PANEL BY PCR Routine 09/27/2021 5:45 PM CERAMIC WORKER Diarrhea, unspecified type CLOSTRIDIUM DIFFICILE TOXIN B Routine 09/27/2021 5:45 PM CERAMIC WORKER Diarrhea, unspecified type CALPROTECTIN FECES Routine 09/27/2021 5: 45 PM CERAMIC WORKER Diarrhea, unspecified type ROUTINE PARASITOLOGY EXAM Routine 09/27/2021 5:45 PM CERAMIC WORKER Diarrhea, unspecified type documented in this encounter Results * Ova and Parasite Exam Routine (09/27/2021 5:45 PM CERAMIC WORKER) OVA AND PARASITE EXAM Negative Negative JACQUE 09/29/2021 2:20 PM CERAMIC WORKER [facility] Comment:A single negative sp ecimen does not rule out parasitic infection. Stool RECTAL CONTENTS / Unknown Non-blood Collection / Unknown 09/27/2021 5:45 PM CERAMIC WORKER 09/28/2021 7:42 AM CERAMIC WORKER Narrative [facility] - 09/29/2021 2:20 PM CERAMIC WORKER Cryptosporidium, Cyclospora and Microsporidia are not readily detected by this method. us Hakan Barton MD LAB - MICRO GENERAL ORDERAB LES Final Result [facility] Infectious Diseases Diagnostic Lab (IDDL) [address] [place] [address], [address] [place] [address], [facility] [phone] * Enteric Bacteria and Virus Panel by JAQUI Stool (09/27/2021 5:45 PM CERAMIC WORKER) Campylobacter group Not Detected Not Detected 09/28/2021 9:23 PM CERAMIC WORKER [facility] Salmonella species Not Detected Not Detected 09/28/2021 9:23 PM CERAMIC WORKER [facility] Shigella species Not Detected Not Detected 09/28/2021 9:23 PM CERAMIC WORKER [facility] Vibrio group Not Detected Not Detected 09/28/2021 9:23 PM CERAMIC WORKER [facility] Rotavirus Not Detected Not Detected 09/28/2021 9:23 PM CERAMIC WORKER [facility] Shiga toxin 1 gene Not Detected Not Detected 09/28/2021 9:23 PM CERAMIC WORKER [facility] Shiga toxin 2 gene Not Detected Not Detected 09/28/2021 9:23 PM CERAMIC WORKER [facility] Norovirus I and II Not Detected Not Detected 09/28/2021 9:23 PM CERAMIC WORKER [facility] Yersinia enterocolitica Not Detected Not Detected 09/28/2021 9:23 PM CERAMIC WORKER [facility] Stool RECTAL CONTENTS / Unknown Non-blood Collection / Unknown 09/27/2021 5:45 PM CERAMIC WORKER 09/28/2021 7:41 AM CERAMIC WORKER Narrative [facility] - 09/28/2021 9:23 PM CERAMIC WORKER Testing performed by multiplexed, qualitative PCR using the Vineloop Enteric Pathogens Nucleic Acid Test. Results should [...] ORDERAB LES Final Result [facility] Infectious Diseases Diagnostic Lab (IDDL) [address] [facility], [address] [place] [address], [facility] [phone] * (ABNORMAL) Calprotectin Feces (09/27/2021 5:45 PM CERAMIC WORKER) Calprotectin Feces 341.0(H) 0.0 - 49.9 mg/kg 09/29/2021 1:35 PM CERAMIC WORKER SPECIALTY CORE/PROT/EN DO Comment: Abnormal, repeat as [...] Non-blood Collection / Unknown 09/27/2021 5:45 PM CERAMIC WORKER 09/28/2021 7:42 AM CERAMIC WORKER us Hakan Barton MD LAB - STOOLS ORDERABLES Fin al Result SPECIALTY CORE/PROT/ENDO [facility] Specialty Core Lab [address] [facility], [address] [place] [address], [facility] [phone] * Clostridium difficile Toxin B PCR (09/27/2021 5:45 PM CERAMIC WORKER) C Difficile Toxin B by PCR Negative Negative 09/28/2021 2:32 PM CERAMIC WORKER [facility] Comment:A negative result do es not exclude actual disease due to C. difficile and may be due to improper collection, handling and storage of the specimen or the number of organisms in the specimen is below the detection limit of the assay. Stool RECTAL CONTENTS / Unknown Non-blood Collection / Unknown 09/27/2021 5:45 PM CERAMIC WORKER 09/28/2021 7:41 AM CERAMIC WORKER Narrative [facility] - 09/28/2021 2:32 PM CERAMIC WORKER The Cepheid Xpert C. difficile Assay, performed on the [id number] GeneXeCardio Instrument Systems, is a qualitative in vitro [...] ORDERAB LES Final Result [facility] Infectious Diseases Diagnostic Lab (IDDL) [address] [facility], [address] [place] [phone], [facility] [phone] documented in this encounter Visit Diagnoses Diagnosis Diarrhea, unspecified type documented in this encounter Additional Health Concerns Infection Onset Date Last Indicated Resolved Time Rule Out C-difficile 09/27/2021 09/27/2021 021 2:32 PM CERAMIC WORKER Rule Out C-difficile 01/14/2022 01/14/2022 022 6:15 PM CDT documented as of this encounter Care Teams Bench Machine Operator Relationship Specialty [place] [address] [place] [address] PCP - General 07/03/21 07/27/22 [place] [address] [place] [address] PCP - General 07/28/22 [place] [address] [address], [place] [address] Assigned Gastroenterology Provider 05/07/21 08/30/23 Shar Bartlett, TAYLA [address] [place] [address] Registered Dietitian Dietitian, Registered 07/20/21 Jon Eng MD [address] [place] [address] [id number] [place] [address] Assigned Surgical Provider 04/14/22 documented as of this encounter
--- OUTSIDE RECORDS SUMMARY | 2025-03-11 13:41 | XMS_ITS | Clinical Summary ---
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 [employer]IOR [employer] Gender Identity Not on file Sexual Orientation [...] 2015 FIT 04/07/2022 04/07/2021, 02/2020, 02/23/2020 ZOSTER VACCINE (3 of 3) 04/29/2023 03/04/2023, 06/11 BMP 05/02/2024 05/02/2023, 01/13, 07/28/2022, Additional history exists COVID-19 VACCINE (2023- season) 2024 08/28/2023, 08/01/2022, 02/01/2022, Additional history [...] 0 02/07/2023, 02/07/2023, Additional history exists DTAP/TDAP/TD VACCINE (2 - Td or Tdap) 06/19/2026 06/19/2016 PNEUMOCOCCAL VACCINE 50+ YEARS Completed 06/28/2020, 08/27/2019 HEPATITIS C SCREENING Completed 07/20/2020 LUNG CANCER SCREENING Discontinued 10/10/2023 , 07/25/2023, 03/20/2023, Additional history exists INFLUENZA VACCINE Completed 07/31/2024, , 08/01/2022, Additional history exists HPV VACCINE Aged Out No longer eligi ble based on patient's age to complete this topic MENINGITIS VACCINE Aged Out No longer eligible based on patient's age to complete this topic Medical Devices Implanted Type Area Firer Watertender Device Identifier Shelf Expiration Date Model / Serial / Lot Whistle Tip 5fr X 70cm, Right Implanted:Qty: 1 on 12/13/2020 by Jerrod Jose MD at [facility] Right: Ureter BARD 01/11/2022 [id number] / / [id number] Whistle Tip 5 Fr X 70cm, Left Implanted:Qty: 1 on 12/13/2020 by Jerrod Jose MD at [facility] Left: Ureter BARD 01/11/2022 [id number] / / [id number] Explanted Type Area Firer Watertender Device Identifier Shelf Expiration Date Model / Serial / Lot Bard Whistle Tip 5fr. X 70 Cm Implanted:Qty: 1 Explanted:Qty: 1 on 04/21/2020 at [facility] Right: Ureter BARD 08/10/2020 [id number] / / [id number] Bard Whistle Tip 5 Fr. X 70 Cm Implanted:Qty: 1 Explanted:Qty: 1 on 04/21/2020 at [facility] Left: Ureter BARD 01/11/2022 [id number] / / [id number] Procedures Procedure Name Priority Date/Time Associated Diagnosis [...] LAB - BLOOD ORDERABLES Fin al Result [facility] Acute Care Lab [address] 1st floor, [address] [place] [address], [facility] [phone] * COLONOSCOPY (07/03/2021 1:54 PM CDT) COLONOSCOPY [address] [place] [address] [phone] Endoscopy Department ___ Patient Name: Racheal Regalado [...] Negative NEG^Negati ve 04/07/2021 1:57 PM CDT [facility] Stool 04/07/2021 1:34 PM CDT 04/07/2021 1:50 PM CDT us Hina Leggett DO LAB - STOOLS ORDERABLES Ed ited Result - Final [facility] [address] [place] [address], [facility] [phone] from Last 3 Months or Most Recently Relevant to Health Maintenance Insurance [place] SU[place]MENT PLAN Advance Directives For more information, please contact: [phone] * Full Code (Latest Code Status on [...] patie nt/ legal decision maker Care Teams Physical Therapist Relationship Specialty [place] [address] [place] [address] PCP - General 07/28/[address] [place] [address] Registered Dietitian Dietitian, Registered 07/20/21
--- OUTSIDE RECORDS SUMMARY | 2025-03-11 13:41 | XMS_ITS | Encounter Summary ---
Author Organization [facility] Address [address] [place] [address] Care Team Providers Care Underbaster Name Role Phone Hakan Barton MD Unavailable Venus Barnes MD Primary Care Provider Unavaila Shar Mcneal RD Unavailable [phone] Jon Eng MD Unavailable [phone] Willam Jaramillo MD Primary Care Provider Encounter Details Date Type Department Care Team (Late st Contact Info) Description 07/18/2021 [facility] [address] [place] [id number] Jessica Davis RN Diarrhea, unspecified type Social History Tobacco Use Types Packs/Day Years Used Date Smoking Tobacco: Former Cigarettes Smokeless Tobacco: Never Comments:quit 2013 Alcohol Use Standard Drinks/Week Comments Yes 0 (1 standard drink = 0.6 oz pur e alcohol) occas Comments No Sex and Gender Information Value Date Recorded Sex Assigned at Not on file 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 Comment:Normal Stool RECTAL CONTENTS / Unknown Non-blood Collection / Unknown 07/18/2021 4:29 PM CDT 07/18/2021 4:29 PM CDT us Hakan Barton MD LAB - STOOLS ORDERABLES Fin al Result [facility] Specialty Core Lab [address] [place] [address], [facility] [phone] * (ABNORMAL) Clostridium difficile Toxin B PCR (07/18/2021 4:29 PM CDT) [facility] C Difficile Toxin B by [...] LABORATORY - 07/18/2021 9:41 PM CDT The [employer] Xpert C. difficile Assay, performed on the Pharmaxis Instrument Systems, is a qualitative in vitro [...] ORDERAB LES Final Result [facility] Infectious Diseases Diagnostic Lab (IDDL) [address] [place] [address], [facility] [phone] documented in this encounter Visit Diagnoses Diagnosis Diarrhea, unspecified type documented in this encounter Additional Health Concerns Infection Onset Date Last Indicated Resolved Time C-difficile 04/26/2021 07/18/2021 08/17/2021 11:3 9 PM CDT Rule Out C-difficile 07/18/2021 07/18/2021 021 9:41 PM CDT Rule Out C-difficile 09/27/2021 09/27/2021 021 2:32 PM HEAD SOFT 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 Rule Out C-difficile 01/14/2022 01/14/2022 022 6:15 PM CDT documented as of this encounter Care Teams Underbaster Relationship Specialty [place] [address] [place] [address] PCP - General 07/03/21 07/27/22 [place] [address] [place] [address] PCP - General 07/28/22 [place] [address] [place] [address] Assigned Gastroenterology Provider 05/07/21 08/30/[address] [place] [address] Registered Dietitian Dietitian, Registered 07/20/21 Jon Eng MD [address] [facility] [id number] [place] [address] Assigned Surgical Provider 04/14/22 documented as of this encounter
--- OUTSIDE RECORDS SUMMARY | 2025-03-11 13:41 | XMS_ITS | Clinical Summary ---
Author Organization [facility] Address [address] [place] [address] Care Team Providers Care Certified Anesthesiologist Assistant Name Role Phone Elsewhere, Pcp Primary Care Provider Unavailabl e Source Comments Patient records contain information from all sites at [facility]. For routine questions regarding patient records, call [phone] during business hours, M-F 8:00 AM - 5:00 PM Central Time. 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 Gender Identity Not on file Sexual Orientation Not on file Last Filed Vital Signs Vital Sign Reading Time Taken Comments Blood Pressure 153/69 08/28/2023 11:29 AM ACCOUNTING ASSISTANT Pulse 66 08/28/2023 11:29 AM ACCOUNTING ASSISTANT Temperature 36.5 C (97.7 F) 08/28/2023 11:29 AM ACCOUNTING ASSISTANT Respiratory Rate - - Oxygen Saturation - - Inhaled Oxygen Concentration - - Weight 44.7 kg (98 lb 8.7 oz) 08/28/2023 11:29 A M ACCOUNTING ASSISTANT Height 166 cm (5' 5.35) 12/09/2012 8:39 AM ACCOUNTING ASSISTANT Body Mass Index - - Plan [...] this topic Medical Devices Implanted Type Area School Health Assistant Device Identifier Shelf Expiration Date Model / Serial / Lot Hardware E.G. Pins/Screws/R ods Hardware e.g. pins/screws/ rods Duodenum Description:Archer Procedures Procedure Name Priority Date/Time Associated Diagnosis [...] M.D. GI PROCEDURE ORDERABLES Fin al Result [facility] [address] [place] [address] from Last 3 Months or Most Recently Relevant to Health Maintenance Insurance MEDICARE [facility] Care Teams Certified Anesthesiologist Assistant Relationship Specialty Start Date End Date Elsewhere, Pcp PCP - General Family Medicine 05/07/23
--- OUTSIDE RECORDS SUMMARY | 2025-03-11 13:41 | XMS_ITS | Encounter Summary ---
Author Organization [facility] Address [address] [place] [address]. [place] [address] Care Team Providers Care Finish Rolls Operator Name Role Phone [facility] Primary Care Provider + Hakan Barton MD Unavailable Venus Barnes MD Primary Care Provider Unavaila Shar Mcneal RD Unavailable [phone] Jon Eng MD Unavailable [phone] Willam Jaramillo MD Primary Care Provider Encounter Details Date Type Department Care Team (Late st Contact Info) Description 01/10/2021 [facility] Only [facility] [address] [place] [address] Tamiko Ruiz MD COLON RECTAL SURGERY [address] [address] Abdominal pain (Primary Dx) Social History Tobacco Use Types Packs/Day Years Used Date Smoking Tobacco: Former Cigarettes Comments:quit 2013 Alcohol Use Standard Drinks/Week Comments Yes 0 (1 standard drink = 0.6 oz pur e alcohol) occas Comments No Sex and Gender Information Value Date Recorded Sex Assigned at Not on file 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 Gender Identity Not on file Sexual Orientation [...] C-difficile 09/27/2021 09/27/2021 021 2:32 PM METAL HANDLER Rule Out C-difficile 01/14/2022 01/14/2022 022 6:15 PM CDT documented as of this encounter Care Teams Finish Rolls Operator Relationship Specialty Start Date End Date [facility] [address] [place] [address] PCP - General 07/05/16 07/02/21 [place] [address] [place] [address] PCP - General 07/03/21 07/27/22 [place] [address] [place] [address] PCP - General 07/28/22 [place] [address] [place] [address] Assigned Gastroenterology Provider 05/07/21 08/30/[address] [place] [address] Registered Dietitian Dietitian, Registered 07/20/21 Jon Eng MD [address] [facility] [id number] [place] [address] Assigned Surgical Provider 04/14/22 documented as of this encounter
--- OUTSIDE RECORDS SUMMARY | 2025-03-11 13:41 | XMS_ITS | Clinical Summary ---
Author Organization [facility] Address [address] [place] [address] Phone Care Team Providers Care Marketing Outreach Coordinator Name Role Phone Tamiko Ruiz MD Primary [...] (03/22/2021): Added automatically from request for surgery [id number] Diverticulitis of large intestine 04/21/2020 Anxiety 12/09/2019 [...] INTERFACED INSURANCE PM INTERFACED INSURANCE Care Teams Marketing Outreach Coordinator Relationship Specialty Start Date End Date Tamiko Ruiz MD COLON & RECTAL SURG [address] [facility] [address] [place] [address] PCP - General 03/16/21
[2025-03-11 13:52] VITALS: BP 143/75; PULSE 62; RESP 16; TEMP 35.9; O2SAT 94; BMI 18.0
--- NOTE | 2025-03-11 16:43 | ED.GENADULT ---
HPI - General Adult General Date Seen: 03/11/25 Chief complaint: Extremity Pain/Injury, Lower Stated complaint: L leg infection Time Seen by Provider: 03/11/25 16:05 History of Present Illness HPI narrative: Very pleasant 75-year-old female who has a history small cell lung carcinoma with metastasis (based on most recent PET scan cancer seems to be in remission and she is currently on immunotherapy), history of COPD, history of C diff colitis, and history of multiple antibiotic allergies presenting to the ER today with concern that she is developing an infection on a wound on her left distal anteromedial frank. She was at a softball turn mental this weekend when she was struck by a hit saw fall in the frank. She suffered a few parallel small skin tears and wound that she thinks are probably triggered by the laces on the fall. She was seen in the ED 3 days ago by my partner and diagnosed with a contusion. She had dressings placed and was told to monitor carefully for signs of developing infection. Since yesterday and perhaps a little bit the day before that she started to notice pus and purulent drainage removed. Also little bit of redness. She is otherwise well. No fever or chills. She had a white count down at her cancer infusion center today and it was eight which is normal, but higher than average for her. She came here to the ER concerned that she is developing an infection. She wants to get on some antibiotics. Related Data Home Medications ?Medication ?Instructions ?Recorded ?Confirmed rosuvastatin 20 mg tablet 20 mg PO DAILY 10/15/22 10/16/24 Held on 10/16/24. Instructions: Doctor's Order vancomycin 125 mg capsule 125 mg PO DAILY 10/15/22 10/16/24 amlodipine 2.5 mg tablet 2.5 mg PO DAILY 06/24/23 10/16/24 Held on 10/16/24. Instructions: Doctor's Order oxycodone-acetaminophen 5 mg-325 0.5 tab PO Q6H PRN 06/24/23 10/16/24 mg tablet Held on 10/16/24. Instructions: Doctor's Order prochlorperazine maleate 10 mg 10 mg PO Q6H PRN nausea 06/24/23 10/16/24 tablet Held on 10/16/24. Instructions: Doctor's Order Magic Mouthwash 5 ml PO QID PRN #120 mL 07/06/23 07/15/23 (Lidocaine/Benadryl/Maalox) 120 mL suspension apixaban 5 mg tablet (Eliquis) 5 mg PO BID 09/13/23 10/16/24 losartan 100 mg tablet 100 mg PO DAILY 09/13/23 10/16/24 Held on 10/16/24. Instructions: Doctor's Order acetylcysteine 200 mg/mL (20 %) 3 ml BID 05/03/24 solution Held on 10/16/24. Instructions: Doctor's Order albuterol sulfate 2.5 mg/3 mL 1 mg 05/03/24 (0.083 %) solution for nebulization Previous Rx's ?Medication ?Instructions ?Recorded metoprolol tartrate 50 mg tablet 50 mg PO BID #60 tabs 06/27/23 benzonatate 100 mg capsule 100 mg PO TID 14 days #42 caps 07/10/23 Held on 10/16/24. Instructions: Doctor's Order ipratropium 0.5 mg-albuterol 3 mg 3 ml inhalation QID 30 days #120 mL 07/10/23 (2.5 mg base)/3 mL nebulization soln ondansetron 4 mg disintegrating 4 mg PO Q6H PRN 14 days #20 tabs 07/10/23 tablet azithromycin 500 mg tablet 500 mg PO DAILY 7 days #7 tabs 08/08/23 Held on 10/16/24. Instructions: Doctor's Order erythromycin 500 mg tablet 500 mg PO Q6H #28 tabs 03/11/25 Allergies Allergy/AdvReac Type Severity Reaction Status Date / Time cefuroxime Allergy Severe Anaphylaxis Verified 03/11/25 14:01 codeine Allergy Severe Hypotension Verified 03/11/25 14:01 doxycycline Allergy Severe other Verified 03/11/25 14:01 gatifloxacin (From Tequin) Allergy Severe Anaphylaxis Verified 03/11/25 14:01 hydrocodone (From Vicodin) Allergy Severe Hypertensio Verified 03/11/25 14:01 n iron (From Venofer) Allergy Severe Anaphylaxis Verified 03/11/25 14:01 meperidine (From Demerol) Allergy Severe Anaphylaxis Verified 03/11/25 14:01 morphine Allergy Severe SOB Verified 03/11/25 14:01 Penicillins Allergy Severe Anaphylaxis Verified 03/11/25 14:01 Quinolones Allergy Severe Anaphylaxis Verified 03/11/25 14:01 fentanyl Allergy Intermediate Verified 03/11/25 14:01 acetaminophen (From Panlor Allergy Unknown Unknown Verified 03/11/25 14:01 (hydrocodone-acetamin)) ampicillin (From Unasyn) Allergy Unknown Nausea Verified 03/11/25 14:01 magnesium citrate Allergy Unknown Diarrhea Verified 03/11/25 14:01 metronidazole (From Flagyl) Allergy Unknown Flushing Verified 03/11/25 14:01 sulbactam (From Unasyn) Allergy Unknown Nausea Verified 03/11/25 14:01 sulfamethoxazole (From Allergy Unknown Nausea Verified 03/11/25 14:01 Sulfamethoxazole-Trimethoprim) trimethoprim (From Allergy Unknown Nausea Verified 03/11/25 14:01 Sulfamethoxazole-Trimethoprim) [facility] Medical History COPD (chronic obstructive pulmonary disease) ?J44.9 - Chronic obstructive pulmonary disease, unspecified (ICD-10) C. difficile colitis ?A04.72 - Enterocolitis due to Clostridium difficile, not specified as recurrent (ICD-10) Rash ?R21 - Rash and other nonspecific skin eruption (ICD-10) Radiation dermatitis ?L58.9 - Radiodermatitis, unspecified (ICD-10) Cerebral aneurysm ?I67.1 - Cerebral aneurysm, nonruptured (ICD-10) PVD (peripheral vascular disease) ?I73.9 - Peripheral vascular disease, unspecified (ICD-10) Intermittent atrial fibrillation ?I48.0 - Paroxysmal atrial fibrillation (ICD-10) Non-small cell carcinoma of left lung, stage 3 ?C34.92 - Malignant neoplasm of unspecified part of left bronchus or lung (ICD-10) Surgical History S/P colectomy ?Z90.49 - Acquired absence of other specified parts of digestive tract (ICD-10) Social History What is your current living situation?: I presently have a place to live Problems where you live: no known problems Problems where you live details: no problems In the past 12 months, utilities in danger of being shut off: no In past 12 months, lack of transportation kept you from medical appts, meetings, work, or getting things needed for daily living: no In the past 12 mos, have been you worried that your food would run out before you had money to buy more?: never true In the past 12 mos, the food you bought just didn't last and you didn't have money to buy more?: never true Highest level of school completed/degree received: some college, no degree Smoking Status: Former smoker Do you use any of these nicotine containing products: None Second hand tobacco smoke exposure: Yes How often do you have a drink containing alcohol: monthly or less Alcohol type: beer How many standard drinks containing alcohol do you have on a typical day: 1 or 2 How often do you have six or more drinks on one occasion: Never AUDIT-C Alcohol total score: 1 Non-prescribed substance use: denies use Caffeine: Yes (not in the last 3 months) How often does anyone, including family, friends and others, physically hurt you: never How often does anyone, including family, friends and others, insult or talk down to you: never How often does anyone, including family, friends and others, threaten you with harm: never How often does anyone, including family, friends and others, scream or curse at you: never service: No Exam Narrative: Exam Narrative: Constitutional: Appears well-developed and well-nourished. Active. Non-toxic appearing. HENT: Head: Atraumatic. No signs of injury. Nose: No nasal discharge. Mouth/Throat: Mucous membranes are moist. Pharynx is normal. Tonsils symmetric. Uvula midline. Airway patent. Eyes: Conjunctivae normal and EOM are normal. Pupils are equal, round, and reactive to light. Right eye exhibits no discharge. Left eye exhibits no discharge. No icterus. Neck: Normal range of motion. Neck supple. No adenopathy. No stridor. Cardiovascular: Normal rate and regular rhythm. No murmur heard. No murmurs, rubs, or gallops. Brisk capillary refill Pulmonary/Chest: Effort normal. No stridor. No respiratory distress. No wheezes.No rhonchi. No rales. No retractions. Abdominal: Soft. Bowel sounds are normal. No distension. No mass. There is no tenderness. There is no rebound and no guarding. Musculoskeletal: Normal range of motion. No edema. No tenderness. No deformity. Neurological: Alert. Normal strength. No cranial nerve deficit or sensory deficit. Coordination normal. GCS eye subscore is 4. GCS verbal subscore is 5. GCS motor subscore is 6. Skin: She has a irregular shaped wound on her right lower extremity on the distal 1/3 of the anterolateral frank. Dressing removed for exam. There are couple of small superficial skin injuries. One of them has a small amount of purulent drainage. Also a little bit of surrounding erythema. No underlying fluctuance or crepitus. Otherwise, Skin is warm. No other rash noted. Const: Vital Signs, click to edit/add: Vital Signs - 24 hr 03/11/25 13:52 Temperature 96.7 F L Pulse Rate [Pulse Oximeter] 62 Respiratory Rate 16 Blood Pressure [Ri ght Upper Arm] 143/75 H Pulse Oximetry 94 Oxygen Delivery Me thod Room Air Course Vital Signs Vital signs: Initial Vital Signs Temperature 96.7 F L 03/11/25 13:52 Temperature Source Temporal Artery Scan 03/11/25 13:52 Pulse Rate 62 03/11/25 13:52 Respiratory Rate 16 03/11/25 13:52 Blood Pressure 143/75 H 03/11/25 13:52 Blood Pressure Mean 97 03/11/25 13:52 Blood Pressure Position Sitting 03/11/25 13:52 Pulse Oximetry 94 03/11/25 13:52 Oxygen Delivery Method Room Air 03/11/25 13:52 Vital Signs Temperature 96.7 F L 03/11/25 13:52 Pulse Rate 62 03/11/25 13:52 Respiratory Rate 16 03/11/25 13:52 Blood Pressure 143/75 H 03/11/25 13:52 Pulse Oximetry 94 03/11/25 13:52 Oxygen Delivery Method Room Air 03/11/25 13:52 Temperature 96.7 F L 03/11/25 13:52 Pulse Rate 62 03/11/25 13:52 Respiratory Rate 16 03/11/25 13:52 Blood Pressure 143/75 H 03/11/25 13:52 Pulse Oximetry 94 03/11/25 13:52 Oxygen Delivery Method Room Air 03/11/25 13:52 Medical Decision Making MDM Narrative Medical decision making narrative: This patient presents for evaluation of skin redness in the area around the wound where she was struck by a softball a few days ago.. The history, physical exam is consistent with possible mild early cellulitis. There do not appear at this time to be any complication of cellulitis including abscess, necrotizing fascitis, lymphangitis, lymphadenitis, osteomyelitis, sepsis, or shock. Since she is currently on immunotherapy for cancer, I think it makes sense to treat her early for potential cellulitis rather than wait for progression. However she is overall clinically well appearing and nontoxic and I do not think she needs to be admitted for IV antibiotics. Supportive outpatient management is indicated with antibiotics. She says she has multiple antibiotic allergies. We discussed options for treating her skin infection such as clindamycin. She says she typically has done better with erythromycin. Although this is not give super brought skin coverage it could cover some skin shalini. She is refusing other antibiotics. Therefore prescription for erythromycin provided. The patient is instructed to follow-up with primary care physician to ensure no progression and rapid resolution and given precautions to return if high fever, spread greater than 2cm outside of the current area, worsening pain, vomiting or any other worsening. Questions answered and return precautions reviewed. Discharge Plan Discharge Clinical Impression: Cellulitis of left leg Patient Disposition: Home, Self-Care Condition: Stable Instructions: Cellulitis (ED) Additional Instructions: As we discussed, please start on the antibiotics today. Monitor the area of swelling and redness. If it is getting worse or larger or if he develops other symptoms such as high fever, body aches or chills, or any concerns, please see your doctor immediately or come back to the ER. Prescriptions: New erythromycin 500 mg tablet 500 mg PO Q6H Qty: 28 0RF No Action losartan 100 mg tablet 100 mg PO DAILY Eliquis 5 mg tablet 5 mg PO BID vancomycin 125 mg capsule 125 mg PO DAILY Patient Comments: TAKE ONE CAPSULE BY MOUTH EVERY DAY rosuvastatin 20 mg tablet 20 mg PO DAILY prochlorperazine maleate 10 mg tablet 10 mg PO Q6H PRN (Reason: nausea) oxycodone-acetaminophen 5-325 mg tablet 0.5 tab PO Q6H PRN amlodipine 2.5 mg tablet 2.5 mg PO DAILY metoprolol tartrate 50 mg Tablet 50 mg PO BID Qty: 60 0RF azithromycin 500 mg tablet 500 mg PO DAILY 7 Days Qty: 7 0RF Magic Mouthwash (Lidocaine/Benadryl/Maalox) 120 mL suspension 5 ml PO QID PRNQty: 120 benzonatate 100 mg Capsule 100 mg PO TID 14 Days Qty: 42 0RF ondansetron 4 mg Tablet,Disintegrating 4 mg PO Q6H PRN14 Days Qty: 20 1RF ipratropium-albuterol 0.5 mg-3 mg(2.5 mg base)/3 mL Solution For Nebulization 3 ml inhalation QID 30 Days Qty: 120 1RF acetylcysteine 200 mg/mL (20 %) solution 3 ml BID albuterol sulfate 2.5 mg /3 mL (0.083 %) solution for nebulization 1 mg Follow Up/Referrals: Willam Jaramillo MD [Primary Care Provider, Family Practice] Stand Alone Forms: [facility] Info Instructions
== END 2025-03-11 17:09 | disposition home or self-care (01) ==
LOC: ED 17:05
PROVIDERS: Emergency Provider Emergency Medicine; PCP Family Medicine
DX: L03.116 Cellulitis of left lower limb (principal)
CPT/HCPCS: 99282; 99283